=== PATIENT | female | born 1945 | race Caucasian/White ===

== ENCOUNTER → 2018-02-24 09:20 | Outpatient (CLI) | payer MEDICARE, SELFPAY | PROVIDERS: Family Provider Internal Medicine; PCP Internal Medicine; Visit Provider Internal Medicine | DX: R00.8 Other abnormalities of heart beat (principal); I49.3 Ventricular premature depolarization | CPT/HCPCS: 93225; 93226 ==

== ENCOUNTER 2019-04-03 15:30 | Outpatient (RCR) | payer MEDICARE, SELFPAY ==
--- NOTE | 2019-01-21 12:09 | HP.PTEVAL ---
Patient's Visit Information TOREY SUAREZ is a 73 year old F referred to Physical Therapy by Louie Stark DO with a diagnosis of INTERVERTEBRAL DISC DEGENERATION ,LUMBAR. Date of Evaluation: 01/21/19 Physical Therapist: Sylvester Beaulieu, PT, Cert MDT, OCS - Visit Plan Frequency: 2x /Week Duration: 4 Weeks Plan: PT INTERVENTIONS LUMBAR FLEXION,DLS ,POSTURAL EX'S ,FUNCTIONAL STRENGTHENING,MODALTIES PRN - Subjective Findings: This 73 y/o female presents to physical therapy with lumbar pain and radicular right leg. Patient has had lumbar pain and leg pain for several months . Symptoms progressively worse with gardening Patient located right L-S side of hip to anterior knee to foot. Symptoms wosre with walking ,standing,lfting,affects ADL'S/ Alleviating factors better with sitting,bending. Coughing/sneezing -. Bowel.bladder -. Denies parathesia/tingling. Patient seen chiropractor. Patient has been using fww due to ain. Patient pain affects QOL and function. Lumbar and leg pain impairs ADLS'a ,housework chores.Patient seen DR mccormick MRI recommended PT and gabepetin. SOCIAL: . VOCATION: retired - Pain Right Back Pain Intensity (Out of 10): 7 Pain Intensity Range: 10 Right Lower Extremity Pain Intensity (Out of 10): 7 Pain Intensity Range: 10 - Objective POSTURE:mild foward posture,mod kyphosis. GAIT: mild foward posture with fww reciprocal ,and can ambulate without fww. NEURO: c/o parathesia/tingling right leg leg,reflexes L3-4,L4-5,L5-S1 1/3. SYMMTRIES: align. LUMBAR ROM:flexion WFL,extension mod loss,side glides min glides. MMT: quads/hams 4/5,hip flexion 4-/5,ankle 4/5. PALAPTION: tender L-S - Special Tests L/S Slump test left side: Negative L/S Slump test right side: Negative L/S Left Straight Leg Raise: Negative L/S Right Straight Leg Raise: Negative Lumbar Standing: Flexion - Mechanical Response: No effect Lumbar Standing: Flexion - Symptoms During Testing: No effect Lumbar Standing: Flexion - Symptoms After Testing: No effect Lumbar Standing: Extension - Mechanical Response: No effect Lumbar Standing: Extension - Symptoms During Testing: Increases Lumbar Standing: Extension - Symptoms After Testing: No worse Lumbar Standing: Right Side Glides - Mechanical Response: No effect Lumbar Standing: Right Side [place] - Symptoms During Testing: No effect Lumbar Standing: Right Side [place] - Symptoms After Testing: No effect Lumbar Standing: Left Side [place] - Symptoms During Testing: Increases Lumbar Standing: Left Side [place] - Symptoms After Testing: No worse - Goals Goal 1:: Independant with HEP Goal Time Frame: 4-6 Weeks Goal 2:: Improve posture for ADL'S Goal Time Frame: 4-6 Weeks Goal 3:: Patient to decrease lumbar radiculopathy by 50% greater to imrove function and ADL'S Goal Time Frame: 4-6 Weeks Goal 4:: Patient to improve lumbar ROM for function of recovery. Goal Time Frame: 4-6 Weeks Goal 5:: Patient to improve back owestrey score by 5 points or > to improve QOL. Goal Time Frame: 4-6 Weeks - Rehabilitation Potential Physical Therapy Diagnosis: Patient has lumbar pain possible lateral stenosis with pain ,extension worse ,flexion better,impairs walking and standing impairs ADLS' Rehabilitation Potential: Good - Anticipated Interventions Patient/Client Instruction: Educate patient on: Plan of Care For the Purpose of:: To decrease pain, To increase ROM, To increase oxygenation perfusion, To improve ability to perform ADL's, To increase tolerance to activity/condition/position, To improve ability of physical actions for home/community/work/leisure, To improve health of tissue, To decrease soft tissue restriction, To increase flexibility/ROM, To improve ability to perform tasks related to life management Therapeutic Exercise to Include: Strength training, Body mechanics, Postural training, Flexibilty training, Active ROM, Dynamic Lumbar Stabilization For the Purpose of:: To decrease pain, To increase ROM, To improve muscle performance and motor function, To increase tolerance to activity/condition/position, To improve ability of physical actions for home/community/work/leisure, To improve health of tissue, To decrease soft tissue restriction, To increase flexibility/ROM, To improve ability to perform tasks related to life management TENS: Yes IF ES: Yes Cryotherapy (ice pack, ice massage): Yes Thermo therapy (hot pack): Yes Ultrasound (thermal/non thermal): Yes For the Purpose of:: To decrease pain, To increase ROM, To improve nutrient delivery to tissue, To increase oxygenation perfusion, To improve health of tissue, To decrease soft tissue restriction, To reduce risk of recurrence Thank you for the opportunity to evaluate your patient. For Medicare and Medicare HMO plans, please review the plan of care and approve it. It will need to be FAXED BACK to us at [phone] for Medicare purposes. For Medicare only, by signing this I certify the plan of care. Please let me know if there are questions or concerns regarding this plan of care. Physician Signature: Date:
--- NOTE | 2019-02-13 15:33 | HP.PTREVAL_ITS ---
Louie Stark, DO, It has been my pleasure to treat TOREY SUAREZ over the last 8 visits for INTERVERTEBRAL DISC DEGENERATION ,LUMBAR. Please see the progress note below for an update on the physical therapy plan of care! Subjective: Patient states Feeling good in morning but worse as day goes on.Patient states symptoms cont to be intermottant with parathesia/tingling in foot. Patient occassionally use fww. Objective/Function: POSTURE: mild foward posture. GAIT: ambulates with antalgic with with cane. LUMBAR ROM: flexion WFL ,extension mod loss pain ,side glides mod loss pain. MMT: quads/hams 4/5,ip flexion 4-/5 ,ankle 4/5 Plan Plan: CONT WITH POC 2X/WK FOR 2WKS PT INTERVENTIONS LUMBAR FLEXION,DLS ,POSTURAL EX'S ,FUNCTIONAL STRENGTHENING,MODALTIES PRN Goals Goal 1:: Independant with HEP Goal Time Frame: 4-6 Weeks Goal Progress: Progressing Goal 2:: Improve posture for ADL'S Goal Time Frame: 4-6 Weeks Goal Progress: Progressing Goal 3:: Patient to decrease lumbar radiculopathy by 50% greater to imrove function and ADL'S Goal Time Frame: 4-6 Weeks Goal Progress: Progressing Goal 4:: Patient to improve lumbar ROM for function of recovery. Goal Time Frame: 4-6 Weeks Goal Progress: Progressing Goal 5:: Patient to improve back owestrey score by 5 points or > to improve QOL. Goal Time Frame: 4-6 Weeks Goal Progress: Progressing Anticipated Interventions Patient/Client Instruction: Educate patient on: Plan of Care For the Purpose of:: To decrease pain, To increase ROM, To increase oxygenation perfusion, To improve ability to perform ADL's, To increase tolerance to activity/condition/position, To improve ability of physical actions for home/community/work/leisure, To improve health of tissue, To decrease soft tissue restriction, To increase flexibility/ROM, To improve ability to perform tasks related to life management Therapeutic Exercise to Include: Strength training, Body mechanics, Postural training, Flexibilty training, Active ROM, Dynamic Lumbar Stabilization For the Purpose of:: To decrease pain, To increase ROM, To improve muscle performance and motor function, To increase tolerance to activity/condition/position, To improve ability of physical actions for home/community/work/leisure, To improve health of tissue, To decrease soft tissue restriction, To increase flexibility/ROM, To improve ability to perform tasks related to life management TENS: Yes IF ES: Yes Cryotherapy (ice pack, ice massage): Yes Thermo therapy (hot pack): Yes Ultrasound (thermal/non thermal): Yes For the Purpose of:: To decrease pain, To increase ROM, To improve nutrient delivery to tissue, To increase oxygenation perfusion, To improve health of tissue, To decrease soft tissue restriction, To reduce risk of recurrence Please do not hesitate to contact me at [phone] by phone or Fax: if you have questions or concerns regarding this new plan of care! Sincerely, Sylvester Beauleiu, PT, Cert MDT, OCS
--- NOTE | 2019-02-25 09:26 | HP.PTREVAL_ITS ---
Louie Stark, DO, It has been my pleasure to treat TOREY SUAREZ over the last 12 visits for INTERVERTEBRAL DISC DEGENERATION ,LUMBAR. Please see the progress note below for an update on the physical therapy plan of care! Subjective: Seen DR wants to cont with PT and pain mangement. Pain is better .Pain is worse with walking and standind Objective/Function: POSTURE: mild foward posture. GAIT: amulates with cane with mild foward. NEURO: denies parathesia/tingling ,reflexes 2/3. MMT: quads/hams 4/5,hip flexion 4-/5 ankle 4/5. LUMBAR ROM: flexion mod loss,extension mod loss ,side glides min loss Plan Plan: CONT WITH POC 2X/WK FOR 4WKS PT INTERVENTIONS LUMBAR FLEXION,DLS ,POSTURAL EX'S ,FUNCTIONAL STRENGTHENING,MODALTIES PRN Goals Goal 1:: Independant with HEP Goal Time Frame: 4-6 Weeks Goal Progress: Progressing Goal 2:: Improve posture for ADL'S Goal Time Frame: 4-6 Weeks Goal Progress: Progressing Goal 3:: Patient to decrease lumbar radiculopathy by 50% greater to imrove function and ADL'S Goal Time Frame: 4-6 Weeks Goal Progress: Progressing Goal 4:: Patient to improve lumbar ROM for function of recovery. Goal Time Frame: 4-6 Weeks Goal Progress: Progressing Goal 5:: Patient to improve back owestrey score by 5 points or > to improve QOL. Goal Time Frame: 4-6 Weeks Goal Progress: Progressing Anticipated Interventions Patient/Client Instruction: Educate patient on: Plan of Care For the Purpose of:: To decrease pain, To increase ROM, To increase oxygenation perfusion, To improve ability to perform ADL's, To increase tolerance to activity/condition/position, To improve ability of physical actions for home/community/work/leisure, To improve health of tissue, To decrease soft tissue restriction, To increase flexibility/ROM, To improve ability to perform tasks related to life management Therapeutic Exercise to Include: Strength training, Body mechanics, Postural training, Flexibilty training, Active ROM, Dynamic Lumbar Stabilization For the Purpose of:: To decrease pain, To increase ROM, To improve muscle performance and motor function, To increase tolerance to activity/condition/position, To improve ability of physical actions for home/c ommunity/work/leisure, To improve health of tissue, To decrease soft tissue restriction, To increase flexibility/ROM, To improve ability to perform tasks related to life management TENS: Yes IF ES: Yes Cryotherapy (ice pack, ice massage): Yes Thermo therapy (hot pack): Yes Ultrasound (thermal/non thermal): Yes For the Purpose of:: To decrease pain, To increase ROM, To improve nutrient delivery to tissue, To increase oxygenation perfusion, To improve health of tissue, To decrease soft tissue restriction, To reduce risk of recurrence Please do not hesitate to contact me at [phone] by phone or if you have questions or concerns regarding this new plan of care! Sincerely, Sylvester Beaulieu, PT, Cert MDT, OCS
--- NOTE | 2019-04-21 13:47 | HP.PTDCSUM_ITS ---
HP - PT D/C Summary It has been my pleasure to treat TOREY SUAREZ under orders from Louie Stark DO, for the diagnosis of INTERVERTEBRAL DISC DEGENERATION ,LUMBAR for a total of 20 visit(s). Discharge Date: Please see the following information for a summary of their discharge status. - Subjective Subjective: Patient plans to have epidural injections by pain management. Pateint right L-S /hip radiates below knee. Symptoms cont to affect walking and standing. - Pain Right Back Pain Intensity (Out of 10): 6 Right Lower Extremity Pain Intensity (Out of 10): 7 - Overall Improvement % Improvement: 40 - Objective Objective/Function: POSTURE: MILD FOWRAD POSTURE. GAIT: QUAD CANE WITH ANTALGIC. NEURO: REFLEXES 1/3. MMT: RIGHT QUADS/HAMS 4-/5 ,HIP FLEXION 4- /5.LEFT 4-/5. LUMBAR ROM: FLEXION MOD LOSS,EXT SEVERE LOSS - Goals Goal 1:: Independant with HEP Goal Progress: Progressing Goal 2:: Improve posture for ADL'S Goal Progress: Progressing Goal 3:: Patient to decrease lumbar radiculopathy by 50% greater to imrove function and ADL'S Goal Progress: Progressing Goal 4:: Patient to improve lumbar ROM for function of recovery. Goal Progress: Progressing Goal 5:: Patient to improve back owestrey score by 5 points or > to improve QOL. Goal Progress: Progressing - Plan Plan: RTD - D/C Information If there are questions or concerns regarding this patient's physical therapy, please feel free to call me at [phone]. Thank you for the referral of this patient. Sincerely, Sylvester Beaulieu, PT, Cert MDT, OCS
== END 2019-04-03 19:00 | disposition home or self-care (01) ==
LOC: PT 15:30
PROVIDERS: Family Provider Internal Medicine; PCP Internal Medicine; Referring Provider Orthopaedic Surgery; Visit Provider Orthopaedic Surgery
DX: M51.36 Other intervertebral disc degeneration, lumbar region (principal)
CPT/HCPCS: 97110; 97161; 97530

== ENCOUNTER → 2019-07-29 09:23 | Outpatient (CLI) | payer MEDICARE, SELFPAY ==
--- NOTE | 2019-07-29 09:30 | BD_ITS ---
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 COMPARISON: None. FINDINGS: Lumbar Spine (L1-L4): g/cm2 (1.156) / T-score (-0.1) / Z-score (1.7) Findings are suggestive of normal bone density with a low fracture risk. Left Femur Total: g/cm2 (0.968) / T-score (-0.3) / Z-score (1.4) Left Femoral Neck: g/cm2 (0.916) / T-score (-0.9) / Z-score (1.0) Right Femur Total: g/cm2 (0.906) / T-score (-0.8) / Z-score (0.9) Right Femoral Neck: g/cm2 (0.827) / T-score (-1.5) / Z-score (0.4) BD/Dexa Bone Density Study IMPRESSION: The patient is considered osteopenic as outlined below according to World Corey Organization (WHO) criteria with a low fracture risk. Reference Information: The T-score is the number of standard deviations above or below the standard which is normal for young adults at their peak bone mineral density. The World Health Organization (WHO) interprets the T-scores as follows: Above -1 Normal bone density Between -1 and -2.5 Osteopenia Equal to / or below -2.5 Osteoporosis As a practical clinical guideline, osteopenia may be graded as follows: Mild -1 through -1.5 Moderate -1.6 through -2.0 Severe -2.1 through -2.4 The Z-score is the number of standard deviations above or below age-matched controls. A Z-score of less than -1.5 would be considered abnormal. References: 1. NIH Osteoporosis and Related Bone Diseases http://www.osteo.org 2. International Society for Clinical Densitometry http://www.iscd.org 3. National Osteoporosis Foundation http://www.nof.org Electronically Signed: Ck Gilliland, at 9:11 EST , Service support ,
== END ==
PROVIDERS: PCP Internal Medicine; Referring Provider Orthopaedic Surgery; Visit Provider Orthopaedic Surgery
DX: M85.80 Other specified disorders of bone density and structure, unspecified site (principal); Z78.0 Asymptomatic menopausal state
CPT/HCPCS: 77080

== ENCOUNTER 2019-08-04 19:58 | Inpatient (IN) | payer MEDICARE, SELFPAY ==
[2019-08-04 20:01] VITALS: BP 153/74; PULSE 78; PULSE 81; RESP 16; RESP 20; TEMP 37.2; O2SAT 91; O2SAT 93
[2019-08-04 21:02] VITALS: BMI 38.6
[2019-08-04 21:03] VITALS: BMI 38.6
--- NOTE | 2019-08-04 21:09 | HP.PCM_ITS ---
Problem List (1) Debility Status: Acute (2) Lumbar spinal stenosis Status: Chronic (3) Hypertension Status: Chronic (4) Muscle spasm Status: Acute (5) Vitamin B12 deficiency Status: Chronic (6) Lumbar radiculopathy Status: Chronic (7) Insomnia Status: Acute (8) Body mass index (bmi) 38.0-38.9, adult Status: Chronic (9) Gastroesophageal reflux disease Status: Chronic (10) Depression Status: Chronic History of Present Illness Date of Admission: 08/04/19 Chief Complaint: Here for rehabilitation, strengthening, prior to discharge home alone. The patient is a 74 year old Female with below past medical history underwent L5-S1 back surgery 07/31/[address] Anthony Boland. Postoperative course uncomplicated. Admit to TCU with debility, here for rehabilitation, strengthening, prior to discharge home alone. Past Medical History Past Medical History (Chronic Problems): Chronic Problems Lumbar spinal stenosis (Chronic) Hypertension (Chronic) Vitamin B12 deficiency (Chronic) Lumbar radiculopathy (Chronic) Body mass index (bmi) 38.0-38.9, adult (Chronic) Gastroesophageal reflux disease (Chronic) Depression (Chronic) Benign essential HTN (Chronic) Allergies No Known Allergies Allergy (Verified 08/04/19 20:37) Home Medications: Ambulatory Orders Medication Instructions Recorded Amlodipine [Norvasc] 2.5 mg PO DAILY 08/04/19 Baclofen 10 mg PO Q8H PRN PRN 08/04/19 Calcium Carbonate/Vitamin D3 1 tab PO DAILY 08/04/19 [Calcium 600 + Vit D Tablet] Cyanocobalamin [Vitamin B12] 1,000 mcg PO DAILY@0800 08/04/19 Folic Acid/Vit B Complex and C 2 mg PO DAILY 08/04/19 [Activite Tablet] Gabapentin [Neurontin] 100 mg PO TIDCM 08/04/19 Hydrochlorothiazide [Hctz] 25 mg PO DAILY 08/04/19 Melatonin 5 mg PO QHS 08/04/19 Metoprolol Succinate [Toprol Xl] 100 mg PO DAILY 08/04/19 Multivitamin with Minerals 1 tab PO DAILY 08/04/19 [Multiple Vitamin] Omeprazole 40 mg PO DAILY 08/04/19 Oxycodone [Oxyir] 5 mg PO Q4H PRN 08/04/19 Sertraline HCl 100 mg PO DAILY 08/04/19 Surgical History: cholecystectomy, - - Bladder suspension surgery. 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 Denies: Joint Pain, Joint Tenderness Skin: Denies: Rash, Wounds Neurological: Denies: Numbness, Tingling, Focal weakness Psychiatric: Denies: Anxiety, Depression, Homicidal Ideations, Suicidal Ideations Hematologic/ Lymphatic: Denies: Easy Bruising, Easy Bleeding VTE Information - Inpt Only VTE Present on Admission: No VTE Mechan Device Prophylaxis: Knee High RAISSA Hose VTE Pharm Prophylaxis ordered?: Yes Patient Problems: Active and Suspected Problems Debility (Acute) Muscle spasm (Acute) Insomnia (Acute) - Physical Exam Vitals/I&O's: Weight: 98.883 kg Body Mass Index (BMI) 38.6 General: Alert, Oriented x3, Cooperative HEENT: Atraumatic, PERRLA, EOMI, Normocephalic Neck: Supple, No JVD, Negative Carotid Bruits Lungs: Clear to auscultation, Normal air movement Cardiovascular: Regular rate, No murmurs Abdomen: Bowel Sounds Present, Soft, Non Tender, - - FOS. Extremities: No edema, Capillary Refill Less than 3 Seconds Skin: No rashes, No breakdown Musculoskeletal: No Tenderness to Palpation of Joints or Extremities Neurological: Cranial nerves II-XII grossly intact Psych/Mental Status: Normal Affect, Appropriate Current Medications Amlodipine Besylate (Norvasc) 2.5 mg PO DAILY JOSE Baclofen (Lioresal) 10 mg PO Q8H PRN PRN PRN Reason: MUSCLE SPASM Calcium/Vitamin D (Os-Ruben 500mg + D) 1 tablet PO DAILY@0800 [facility] Cyanocobalamin (Vitamin B12) 1,000 mcg PO DAILY@0800 [facility] Gabapentin (Neurontin) 100 mg PO TIDCM [facility] Hydrochlorothiazide (Hctz) 25 mg PO DAILY [facility] Melatonin (Melatonin) 5 mg PO QHS [facility] Metoprolol Succinate (Toprol Xl (Beta Leeanne)) 100 mg PO DAILY [facility] Multivitamins/Minerals (Multivitamin With Minerals (Bkc)) 1 tablet PO DAILY@0800 [facility] Oxycodone HCl (Oxyir) 5 mg PO Q4H PRN PRN Reason: Pain Score 1-10/10 Pantoprazole Sodium (Protonix) 40 mg PO DAILY [facility] Sertraline HCl (Zoloft) 100 mg PO DAILY [facility] Tuberculin PPD (Tubersol, Aplisol, Ppd) 5 tu ID [id number] ONE Stop: 08/05/19 10:01 Tuberculin PPD (Tubersol, Aplisol, Ppd) 5 tu ID [id number] ONE Stop: 08/12/19 10:01 Assessment/Plan All Active Problems Debility (Acute) Muscle spasm (Acute) Insomnia (Acute) 74 year old female with below past medical history underwent L5-S1 back surgery 07/31/[address] Anthony Boland, admitted to TCU with debility, here for rehabilitation, strengthening, prior to discharge home alone. * Debility - PT/OT. * Pain - Tylenol 1000MG Q6H PRN pain (1-3), Oxycodone 5MG Q4H PRN pain (4-10). * Bowel - Miralax 17GM daily, Senna/colace 2 tablets twice daily, Dulcolax 10MG daily PRN, Magnesium Citrate 300ML PO x 1. * Adult immunization - Administer Prevnar 13, Pneumovax 23, Fluzone as appropriate. * DVT prophylaxis - Lovenox 40MG SC daily. * Hypertension - Metoprolol succinate 100MG daily, HCTZ 25MG daily, Amlodipine 2.5MG daily. * Muscle spasm - Baclofen 10MG Q8H PRN. * Calcium deficiency - Calcium with D 1 tablet daily. * Vitamin B12 deficiency - B12 1000MCG daily. * Lumbar radiculopathy - Gabapentin 100MG TIDCM. * Insomnia - Melatonin 5MG QHS. * Nutrition - MVI daily. * GERD - Pantoprazole 40MG daily. * Depression - Sertraline 100MG daily, stable chronic machine long goods helper use, GDR not indicated. * Hypokalemia - K 3.2, KCL 40MEQ PO x 1 dose, then 20MEQ daily, BMP in 2 days.
[2019-08-04] MEDS: MELATONIN 10 MG TABLET 5 MG PO (22:09)
[2019-08-04] MEDS: Baclofen 10 MG Tablet PO (22:09)
[2019-08-05] MEDS: oxyCODONE 5 MG Tablet PO ×3 (03:39→19:01)
[2019-08-05] MEDS: Pantoprazole Sodium 40 MG Tablet PO (05:37)
[2019-08-05 05:38] VITALS: BP 154/83; PULSE 60
[2019-08-05] MEDS: amLODIPine 2.5 MG Tablet PO (05:38)
[2019-08-05] MEDS: Sertraline 100 MG Tablet PO (05:38)
[2019-08-05] MEDS: Metoprolol(XL)Succ 100 MG Tablet PO (05:38)
[2019-08-05] MEDS: hydroCHLOROthiazide 25 MG Tablet PO (05:38)
[2019-08-05] MEDS: Senna/Docusate Sodium 1 Tablet 2 TABLET PO (05:38)
[2019-08-05 05:56] LABS: Absolute Lymphocyte Count 1.36 X10^3/uL (0.83-4.51); Absolute Neutrophil Count 3.5 X10^3/uL (2.0-7.7); Basophil# 0.05 X10^3/uL; Basophil% 0.9 % (0-1); Eosinophil# 0.15 X10^3/uL; Eosinophils% 2.7 % (0-5); Hematocrit 31.5 % (37-47); Hemoglobin 10.3 g/dL (12.0-15.0); Lymphocyte # 1.36 X10^3/ul (4.0); Lymphocyte % 24.2 % (19-41); Mean Corp Hgb Conc 32.7 g/dL (32-36); Mean Corpuscular Hgb 29.2 pg (27.0-32.0); Mean Corpuscular Volume 89.2 fL (81-99); Mean Platelet Vol. 9.4 fl (6.2-12.0); Monocyte# 0.58 X10^3/uL; Monocyte% 10.3 % (0-10); NRBC Flagged by Analyzer 0 % (0-5); Neutrophil # 3.45 X10^3/uL (2.7-7.7); Neutrophil % 61.2 % (47-70); Platelet Count 162 K/mm3 (150-450); RBC Distribution Width CV 13.2 % (11.6-14.6); RBC Distribution Width SD 42.6 fl (35.1-43.9); Red Blood Count 3.53 M/mm3 (4.2-5.4); White Blood Count 5.6 K/mm3 (4.4-11.0)
[2019-08-05 06:18] LABS: Anion Gap 5 (5-15); BUN 11 mg/dL (7-18); BUN/Creat Ratio 21.8 RATIO (10-20); Calcium,Total 9.2 mg/dL (8.5-10.1); Chloride 100 mmol/L (98-107); EST Glomerular Filtration Rate 127 mL/min (>60); Est Glom Filt Rate - Afr Amer 154 mL/min (>60); Estimated Creatinine Clearance 40.83 ml/min; Glucose 91 mg/dL (74-106); Potassium 3.2 mmol/L (3.5-5.1); Sodium Level 138 mmol/L (136-145)
[2019-08-05] MEDS: Gabapentin 100 MG Capsule PO ×3 (08:02→17:22)
[2019-08-05] MEDS: Cyanocobalamin 500 MCG Tablet 1000 MCG PO (08:02)
[2019-08-05] MEDS: Calcium Carb/Vitamin D 1 TABLET Tablet PO (08:02)
[2019-08-05] MEDS: Multivitamins,Ther W-Minerals Tablet 1 TABLET PO (08:02)
[2019-08-05] MEDS: Enoxaparin 40 MG/0.4 ML Syringe SC (08:04)
[2019-08-05] MEDS: Acetaminophen 500 MG Tablet 1000 MG PO (09:54)
[2019-08-05] MEDS: Tuberculin,Purif.prot.deriv. 50 TU/ML Vial 5 ML ID (09:58)
[2019-08-05] MEDS: Magnesium Citrate 300 ML PO (10:53)
[2019-08-05 13:44] VITALS: BP 125/65; PULSE 60; RESP 17; TEMP 37.1; O2SAT 91
--- NOTE | 2019-08-05 15:10 | NURSING ---
mag citrate given per order, outcome was effective
--- NOTE | 2019-08-05 15:13 | PHA.CONS_ITS ---
<Abigail Bowles - Last Filed: 08/05/19 15:13> Progress Note - Pharmacy Subjective: TCU Admission Objective: Allergies No Known Allergies Allergy (Verified 08/04/19 20:37) Current Medications Generic Name Dose Route Start Last Admin Trade Name Freq PRN Reason Stop Dose Admin Acetaminophen 1,000 mg 08/04/19 21:16 08/05/19 09:54 Tylenol PO 1,000 mg Q6H PRN PRN Administration Pain Score 1-3/10 Amlodipine Besylate 2.5 mg 08/05/19 06:00 08/05/19 05:38 Norvasc PO 2.5 mg DAILY JOSE Administration Baclofen 10 mg 08/04/19 20:23 08/04/19 22:09 Lioresal PO 10 mg Q8H PRN PRN Administration MUSCLE SPASM Bisacodyl 10 mg 08/04/19 21:17 Dulcolax PO DAILY PRN Constipation Calamine/Phenol 1 applic 08/05/19 06:00 08/05/19 05:40 Calmoseptine Ointment TOPICAL Not Given 0600,2199 [facility] Protocol Calcium/Vitamin D 1 tablet 08/05/19 08:00 08/05/19 08:02 Os-Ruben 500mg + D PO 1 tablet DAILY@0800 [facility] Administration Cyanocobalamin 1,000 mcg 08/05/19 08:00 08/05/19 08:02 Vitamin B12 PO 1,000 mcg DAILY@0800 [facility] Administration Enoxaparin Sodium 40 mg 08/05/19 07:00 08/05/19 08:04 Lovenox SC 40 mg DAILY@0600 [facility] Administration Gabapentin 100 mg 08/05/19 07:45 08/05/19 12:51 Neurontin PO 100 mg TIDCM JOSE Administration Hydrochlorothiazide 25 mg 08/05/19 06:00 08/05/19 05:38 Hctz PO 25 mg DAILY JOSE Administration Melatonin 5 mg 08/04/19 22:00 08/04/19 22:09 Melatonin PO 5 mg QHS [facility] Administration Metoprolol Succinate 100 mg 08/05/19 06:00 08/05/19 05:38 Toprol Xl (Beta Leeanne) PO 100 mg DAILY JOSE Administration Multivitamins/Minerals 1 tablet 08/05/19 08:00 08/05/19 08:02 Multivitamin With Minerals (Bkc) PO 1 tablet DAILY@0800 [facility] Administration Nystatin 1 applic 08/05/19 06:00 08/05/19 05:40 Mycostatin Powder TOPICAL Not Given 0600,2200 [facility] Protocol Oxycodone HCl 5 mg 08/04/19 21:17 08/05/19 08:10 Oxyir PO 5 mg Q4H PRN PRN Administration Pain Score 4-10/10 Pantoprazole Sodium 40 mg 08/05/19 06:00 08/05/19 05:37 Protonix PO 40 mg DAILY JOSE Administration Polyethylene Glycol 17 gm 08/05/19 06:00 08/05/19 05:38 Miralax PO Not Given DAILY [facility] Potassium Chloride 20 meq 08/06/19 08:00 [facility] Senna/Docusate Sodium 2 tablet 08/05/19 06:00 08/05/19 05:38 Senokot-S, Maggie-Colace PO 2 tablet BID JOSE Administration Sertraline HCl 100 mg 08/05/19 06:00 08/05/19 05:38 Zoloft PO 100 mg DAILY JOSE Administration Tuberculin PPD 5 tu 08/12/19 10:00 Tubersol, Aplisol, Ppd ID 08/12/19 10:01 X1 ONE Problem List Debility (Acute) Lumbar spinal stenosis (Chronic) Hypertension (Chronic) Muscle spasm (Acute) Vitamin B12 deficiency (Chronic) Lumbar radiculopathy (Chronic) Insomnia (Acute) Body mass index (bmi) 38.0-38.9, adult (Chronic) Vital Signs Temp Pulse Resp BP Pulse Ox 98.7 F 60 17 125/65 H 91 08/05/19 13:44 08/05/19 13:44 08/05/19 13:44 08/05/19 13:44 08/05/19 13:44 Oxygen Delivery Method Room Air Weight: 98.883 kg Body Mass Index (BMI) 38.6 Sodium 138 mmol/L (136-145) 08/05/19 05:10 Potassium 3.2 mmol/L (3.5-5.1) L 08/05/19 05:10 Chloride 100 mmol/L (98-107) 08/05/19 05:10 Carbon Dioxide 33.0 mmol/L (21.0-32.0) H 08/05/19 05:10 Anion Gap 5 (5-15) 08/05/19 05:10 BUN 11 mg/dL (7-18) 08/05/19 05:10 Creatinine 0.50 mg/dL (0.55-1.02) L 08/05/19 05:10 Est GFR (MDRD) Af Amer 154 mL/min (>60) 08/05/19 05:10 Est GFR (MDRD) Non-Af 127 mL/min (>60) 08/05/19 05:10 BUN/Creatinine Ratio 21.8 RATIO (10-20) H 08/05/19 05:10 Glucose 91 mg/dL (74-106) 08/05/19 05:10 Assessment/Plan: 1. Pain: acetaminophen 1000mg PO Q6H PRN pain 1-3 and oxycodone 5mg PO Q4H PRN pain 4-03/19. Please continue to monitor for increased pain, PRN usage and constipation. 2. DVT prophylaxis: enoxaparin 40mg SC daily. Please continue to monitor for S/S of bleeding/DVT, renal function and platelets. 3. Hypertension: metoprolol succinate 100mg PO daily, hydrochlorothiazide 25mg PO daily, amlodipine 2.5mg PO daily. Please continue to monitor BP, HR, electrolytes, and edema. 4. Hypokalemia: potassium chloride 20mEq PO daily starting 08/06. Also received potassium 40mEq PO X1 today. Please continue to monitor potassium levels. 5. Muscle spasm: baclofen 10mg PO Q8H PRN muscle spasms. Please continue to monitor for muscle spasms and PRN usage. 6. Lumbar radiculopathy: gabapentin 100mg PO TIDCM. Please continue to monitor for confusion, increased pain and renal function. 7. GERD: pantoprazole 40mg PO daily. Please continue to monitor for S/S of GERD. *8. Overall nutrition/vitamin deficiencies: multivitamin 1T PO DAILYCM, Os-Ruben 1T PO DAILYCM, cyanocobalamin 1000mcg PO DAILYCM. Please consider ordering vitamin B12 and vitamin D levels if clinically appropriate. Thanks. Please continue to monitor. Psychotropic Medications: 1. Depression: sertraline 100mg PO daily. Please see physician note regarding GDR. Unnecessary Medications: None Bowel Regimen: Miralax 17gm PO daily, senna/docusate 2T PO BID, and bisacodyl 10mg PO daily PRN constipation. Please continue to monitor for constipation and PRN usage. Date of Note:: 08/05/19 - Provider Comments Provider responsibility: Provider responsible to enter orders to implement recommendations <Rasta Rankin Chi - Last Filed: 08/05/19 16:30> Progress Note - Pharmacy Subjective: [] Objective: Allergies No Known Allergies Allergy (Verified 08/04/19 20:37) Current Medications Generic Name Dose Route Start Last Admin Trade Name Freq PRN Reason Stop Dose Admin Acetaminophen 1,000 mg 08/04/19 21:16 08/05/19 09:54 Tylenol PO 1,000 mg Q6H PRN PRN Administration Pain Score 1-3/10 Amlodipine Besylate 2.5 mg 08/05/19 06:00 08/05/19 05:38 Norvasc PO 2.5 mg DAILY JOSE Administration Baclofen 10 mg 08/04/19 20:23 08/04/19 22:09 Lioresal PO 10 mg Q8H PRN PRN Administration MUSCLE SPASM Bisacodyl 10 mg 08/04/19 21:17 Dulcolax PO DAILY PRN Constipation Calamine/Phenol 1 applic 08/05/19 06:00 08/05/19 05:40 Calmoseptine Ointment TOPICAL Not Given 0600,2200 [facility] Protocol Calcium/Vitamin D 1 tablet 08/05/19 08:00 08/05/19 08:02 Os-Ruben 500mg + D PO 1 tablet DAILY@0800 [facility] Administration Cyanocobalamin 1,000 mcg 08/05/19 08:00 08/05/19 08:02 Vitamin B12 PO 1,000 mcg DAILY@0800 [facility] Administration Enoxaparin Sodium 40 mg 08/05/19 07:00 08/05/19 08:04 Lovenox SC 40 mg DAILY@0600 [facility] Administration Gabapentin 100 mg 08/05/19 07:45 08/05/19 12:51 Neurontin PO 100 mg TIDCM JOSE Administration Hydrochlorothiazide 25 mg 08/05/19 06:00 08/05/19 05:38 Hctz PO 25 mg DAILY JOSE Administration Melatonin 5 mg 08/04/19 22:00 08/04/19 22:09 Melatonin PO 5 mg QHS JOSE Administration Metoprolol Succinate 100 mg 08/05/19 06:00 08/05/19 05:38 Toprol Xl (Beta Leeanne) PO 100 mg DAILY JOSE Administration Multivitamins/Minerals 1 tablet 08/05/19 08:00 08/05/19 08:02 Multivitamin With Minerals (Bkc) PO 1 tablet DAILY@0800 [facility] Administration Nystatin 1 applic 08/05/19 06:00 08/05/19 05:40 Mycostatin Powder TOPICAL Not Given 0600,2200 [facility] Protocol Oxycodone HCl 5 mg 08/04/19 21:17 08/05/19 08:10 Oxyir PO 5 mg Q4H PRN PRN Administration Pain Score 4-10/10 Pantoprazole Sodium 40 mg 08/05/19 06:00 08/05/19 05:37 Protonix PO 40 mg DAILY JOSE Administration Polyethylene Glycol 17 gm 08/05/19 06:00 08/05/19 05:38 Miralax PO Not Given DAILY [facility] Potassium Chloride 20 meq 08/06/19 08:00 [facility] Senna/Docusate Sodium 2 tablet 08/05/19 06:00 08/05/19 05:38 Senokot-S, Maggie-Colace PO 2 tablet BID JOSE Administration Sertraline HCl 100 mg 08/05/19 06:00 08/05/19 05:38 Zoloft PO 100 mg DAILY JOSE Administration Tuberculin PPD 5 tu 08/12/19 10:00 Tubersol, Aplisol, Ppd ID 08/12/19 10:01 X1 ONE Problem List Debility (Acute) Lumbar spinal stenosis (Chronic) Hypertension (Chronic) Muscle spasm (Acute) Vitamin B12 deficiency (Chronic) Lumbar radiculopathy (Chronic) Insomnia (Acute) Body mass index (bmi) 38.0-38.9, adult (Chronic) Vital Signs Temp Pulse Resp BP Pulse Ox 98.7 F 60 17 125/65 H 91 08/05/19 13:44 08/05/19 13:44 08/05/19 13:44 08/05/19 13:44 08/05/19 13:44 Oxygen Delivery Method Room Air Weight: 98.883 kg Body Mass Index (BMI) 38.6 Sodium 138 mmol/L (136-145) 08/05/19 05:10 Potassium 3.2 mmol/L (3.5-5.1) L 08/05/19 05:10 Chloride 100 mmol/L (98-107) 08/05/19 05:10 Carbon Dioxide 33.0 mmol/L (21.0-32.0) H 08/05/19 05:10 Anion Gap 5 (5-15) 08/05/19 05:10 BUN 11 mg/dL (7-18) 08/05/19 05:10 Creatinine 0.50 mg/dL (0.55-1.02) L 08/05/19 05:10 Est GFR (MDRD) Af Amer 154 mL/min (>60) 08/05/19 05:10 Est GFR (MDRD) Non-Af 127 mL/min (>60) 08/05/19 05:10 BUN/Creatinine Ratio 21.8 RATIO (10-20) H 08/05/19 05:10 Glucose 91 mg/dL (74-106) 08/05/19 05:10 Assessment/Plan: Psychotropic Medications: Unnecessary Medications: Bowel Regimen: - Provider Comments Provider responsibility: Provider responsible to enter orders to implement recommendations Provider Comments to Recommendations by Pharmacy: Agree
--- NOTE | 2019-08-05 17:03 | CASEMGMT ---
Social Work Reviewed and agreed with social work internal wholesaler documentation on this date. Sophia Whittington, TIP LENGTH CHECKER EMERGENCY DEPT TECH
[2019-08-05] MEDS: MELATONIN 10 MG TABLET 5 MG PO (20:36)
[2019-08-05] MEDS: Menthol/Lanolin/Calamine/Znox 113 GM Tube 1 APPLIC TOPICAL (20:37)
[2019-08-05] MEDS: Baclofen 10 MG Tablet PO (20:45)
[2019-08-05] MEDS: Nystatin Powder 15gm Bottle 1 APPLIC TOPICAL (20:47)
[2019-08-05 20:48] VITALS: PULSE 76; RESP 16; O2SAT 93
[2019-08-06] MEDS: oxyCODONE 5 MG Tablet PO ×3 (04:53→19:34)
[2019-08-06] MEDS: Enoxaparin 40 MG/0.4 ML Syringe SC (04:54)
[2019-08-06] MEDS: amLODIPine 2.5 MG Tablet PO (04:54)
[2019-08-06] MEDS: Senna/Docusate Sodium 1 Tablet 2 TABLET PO (04:54)
[2019-08-06] MEDS: hydroCHLOROthiazide 25 MG Tablet PO (04:55)
[2019-08-06] MEDS: Pantoprazole Sodium 40 MG Tablet PO (04:55)
[2019-08-06] MEDS: Nystatin Powder 15gm Bottle 1 APPLIC TOPICAL ×2 (04:56→19:36)
[2019-08-06] MEDS: Menthol/Lanolin/Calamine/Znox 113 GM Tube 1 APPLIC TOPICAL ×2 (04:56→19:36)
[2019-08-06 04:59] VITALS: BP 146/74; PULSE 70
[2019-08-06] MEDS: Sertraline 100 MG Tablet PO (04:59)
[2019-08-06] MEDS: Metoprolol(XL)Succ 100 MG Tablet PO (04:59)
[2019-08-06] MEDS: Acetaminophen 500 MG Tablet 1000 MG PO (08:17)
[2019-08-06] MEDS: Gabapentin 100 MG Capsule PO ×3 (08:18→17:05)
[2019-08-06] MEDS: Cyanocobalamin 500 MCG Tablet 1000 MCG PO (08:18)
[2019-08-06] MEDS: Calcium Carb/Vitamin D 1 TABLET Tablet PO (08:18)
[2019-08-06] MEDS: Multivitamins,Ther W-Minerals Tablet 1 TABLET PO (08:18)
[2019-08-06 10:50] VITALS: PULSE 61; RESP 18; O2SAT 92
[2019-08-06 15:20] VITALS: BP 117/71; PULSE 84; RESP 16; TEMP 36.4; O2SAT 97
[2019-08-06] MEDS: MELATONIN 10 MG TABLET 5 MG PO (19:35)
[2019-08-07] MEDS: amLODIPine 2.5 MG Tablet PO (05:01)
[2019-08-07] MEDS: Sertraline 100 MG Tablet PO (05:01)
[2019-08-07] MEDS: hydroCHLOROthiazide 25 MG Tablet PO (05:01)
[2019-08-07] MEDS: Baclofen 10 MG Tablet PO ×2 (05:01→16:55)
[2019-08-07] MEDS: Senna/Docusate Sodium 1 Tablet 2 TABLET PO (05:01)
[2019-08-07] MEDS: Pantoprazole Sodium 40 MG Tablet PO (05:01)
[2019-08-07] MEDS: Enoxaparin 40 MG/0.4 ML Syringe SC (05:02)
[2019-08-07 05:07] VITALS: BP 127/74; PULSE 70
[2019-08-07] MEDS: Metoprolol(XL)Succ 100 MG Tablet PO (05:07)
[2019-08-07] MEDS: Menthol/Lanolin/Calamine/Znox 113 GM Tube 1 APPLIC TOPICAL ×2 (05:09→21:01)
[2019-08-07] MEDS: Nystatin Powder 15gm Bottle 1 APPLIC TOPICAL ×2 (05:09→21:01)
[2019-08-07 06:38] LABS: Anion Gap 5 (5-15); BUN 15 mg/dL (7-18); BUN/Creat Ratio 22.2 RATIO (10-20); Chloride 100 mmol/L (98-107); Creatinine, Serum 0.68 mg/dL (0.55-1.02); EST Glomerular Filtration Rate 90 mL/min (>60); Est Glom Filt Rate - Afr Amer 109 mL/min (>60); Estimated Creatinine Clearance 40.83 ml/min; Glucose 104 mg/dL (74-106); Potassium 3.6 mmol/L (3.5-5.1); Sodium Level 136 mmol/L (136-145)
[2019-08-07] MEDS: Multivitamins,Ther W-Minerals Tablet 1 TABLET PO (08:49)
[2019-08-07] MEDS: Cyanocobalamin 500 MCG Tablet 1000 MCG PO (08:49)
[2019-08-07] MEDS: Gabapentin 100 MG Capsule PO ×3 (08:50→16:56)
[2019-08-07] MEDS: Calcium Carb/Vitamin D 1 TABLET Tablet PO (08:51)
[2019-08-07] MEDS: Acetaminophen 500 MG Tablet 1000 MG PO (09:09)
[2019-08-07] MEDS: oxyCODONE 5 MG Tablet PO ×2 (09:10→16:55)
--- NOTE | 2019-08-07 10:39 | CASEMGMT ---
Social Work Completed advanced directives. Pt named daughter Anais Churchill as POA. Copies placed in chart. Sophia Whittington, APPLIED TECHNOLOGIST HORTICULTURALIST
[2019-08-07 15:47] VITALS: BP 111/79; PULSE 66; RESP 16; TEMP 36.2; O2SAT 92
[2019-08-07] MEDS: MELATONIN 10 MG TABLET 5 MG PO (20:59)
[2019-08-07 21:10] VITALS: PULSE 72; RESP 16; O2SAT 95
[2019-08-08] MEDS: Baclofen 10 MG Tablet PO ×3 (00:25→19:26)
[2019-08-08] MEDS: oxyCODONE 5 MG Tablet PO ×2 (05:16→21:48)
[2019-08-08] MEDS: Menthol/Lanolin/Calamine/Znox 113 GM Tube 1 APPLIC TOPICAL ×2 (05:17→21:49)
[2019-08-08] MEDS: hydroCHLOROthiazide 25 MG Tablet PO (05:17)
[2019-08-08] MEDS: Senna/Docusate Sodium 1 Tablet 2 TABLET PO (05:17)
[2019-08-08] MEDS: Sertraline 100 MG Tablet PO (05:17)
[2019-08-08] MEDS: Pantoprazole Sodium 40 MG Tablet PO (05:17)
[2019-08-08] MEDS: amLODIPine 2.5 MG Tablet PO (05:17)
[2019-08-08] MEDS: Nystatin Powder 15gm Bottle 1 APPLIC TOPICAL ×2 (05:18→21:49)
[2019-08-08 05:22] VITALS: BP 149/82; PULSE 64
[2019-08-08] MEDS: Metoprolol(XL)Succ 100 MG Tablet PO (05:22)
[2019-08-08] MEDS: Enoxaparin 40 MG/0.4 ML Syringe SC (05:29)
[2019-08-08] MEDS: Gabapentin 100 MG Capsule PO ×3 (07:31→17:34)
[2019-08-08] MEDS: Cyanocobalamin 500 MCG Tablet 1000 MCG PO (07:32)
[2019-08-08] MEDS: Calcium Carb/Vitamin D 1 TABLET Tablet PO (07:32)
[2019-08-08] MEDS: Multivitamins,Ther W-Minerals Tablet 1 TABLET PO (07:32)
[2019-08-08 10:00] VITALS: PULSE 78; RESP 18; O2SAT 96
[2019-08-08] MEDS: Acetaminophen 500 MG Tablet 1000 MG PO ×2 (11:56→19:26)
[2019-08-08 14:35] VITALS: BP 119/62; PULSE 67; RESP 18; TEMP 36.4; O2SAT 97
[2019-08-08] MEDS: MELATONIN 10 MG TABLET 5 MG PO (21:48)
[2019-08-09 05:16] VITALS: BP 138/69; PULSE 61
[2019-08-09] MEDS: Metoprolol(XL)Succ 100 MG Tablet PO (05:16)
[2019-08-09] MEDS: Sertraline 100 MG Tablet PO (05:16)
[2019-08-09] MEDS: amLODIPine 2.5 MG Tablet PO (05:16)
[2019-08-09] MEDS: hydroCHLOROthiazide 25 MG Tablet PO (05:16)
[2019-08-09] MEDS: oxyCODONE 5 MG Tablet PO ×2 (05:19→19:30)
[2019-08-09] MEDS: Enoxaparin 40 MG/0.4 ML Syringe SC (05:19)
[2019-08-09] MEDS: Pantoprazole Sodium 40 MG Tablet PO (05:19)
[2019-08-09] MEDS: Nystatin Powder 15gm Bottle 1 APPLIC TOPICAL ×2 (05:23→20:39)
[2019-08-09] MEDS: Menthol/Lanolin/Calamine/Znox 113 GM Tube 1 APPLIC TOPICAL ×2 (05:23→20:39)
[2019-08-09] MEDS: Cyanocobalamin 500 MCG Tablet 1000 MCG PO (07:57)
[2019-08-09] MEDS: Multivitamins,Ther W-Minerals Tablet 1 TABLET PO (07:57)
[2019-08-09] MEDS: Calcium Carb/Vitamin D 1 TABLET Tablet PO (07:57)
[2019-08-09] MEDS: Gabapentin 100 MG Capsule PO ×3 (07:58→17:46)
[2019-08-09 14:19] VITALS: BP 121/78; PULSE 87; RESP 16; TEMP 36.8; O2SAT 98
[2019-08-09] MEDS: Senna/Docusate Sodium 1 Tablet 2 TABLET PO (17:46)
[2019-08-09 20:12] VITALS: PULSE 71; O2SAT 98
[2019-08-09] MEDS: Acetaminophen 500 MG Tablet 1000 MG PO (20:37)
[2019-08-09] MEDS: MELATONIN 10 MG TABLET 5 MG PO (20:38)
[2019-08-09] MEDS: Baclofen 10 MG Tablet PO (23:09)
[2019-08-10] MEDS: Enoxaparin 40 MG/0.4 ML Syringe SC (06:13)
[2019-08-10 06:14] VITALS: BP 107/71; PULSE 61
[2019-08-10] MEDS: Acetaminophen 500 MG Tablet 1000 MG PO ×2 (06:14→17:12)
[2019-08-10] MEDS: amLODIPine 2.5 MG Tablet PO (06:14)
[2019-08-10] MEDS: hydroCHLOROthiazide 25 MG Tablet PO (06:14)
[2019-08-10] MEDS: Pantoprazole Sodium 40 MG Tablet PO (06:14)
[2019-08-10] MEDS: Sertraline 100 MG Tablet PO (06:14)
[2019-08-10] MEDS: Metoprolol(XL)Succ 100 MG Tablet PO (06:14)
[2019-08-10] MEDS: Senna/Docusate Sodium 1 Tablet 2 TABLET PO (06:15)
[2019-08-10] MEDS: Nystatin Powder 15gm Bottle 1 APPLIC TOPICAL ×2 (06:18→21:55)
[2019-08-10] MEDS: Menthol/Lanolin/Calamine/Znox 113 GM Tube 1 APPLIC TOPICAL ×2 (06:19→21:54)
[2019-08-10] MEDS: Gabapentin 100 MG Capsule PO ×3 (06:19→17:10)
[2019-08-10] MEDS: Multivitamins,Ther W-Minerals Tablet 1 TABLET PO (08:01)
[2019-08-10] MEDS: Calcium Carb/Vitamin D 1 TABLET Tablet PO (08:01)
[2019-08-10] MEDS: Cyanocobalamin 500 MCG Tablet 1000 MCG PO (08:01)
[2019-08-10] MEDS: oxyCODONE 5 MG Tablet PO ×2 (12:44→17:43)
[2019-08-10 14:22] VITALS: BP 124/90; PULSE 73; RESP 18; TEMP 36.9; O2SAT 96
[2019-08-10] MEDS: MELATONIN 10 MG TABLET 5 MG PO (21:50)
[2019-08-10] MEDS: Baclofen 10 MG Tablet PO (21:53)
[2019-08-10 23:37] VITALS: PULSE 71; O2SAT 96
[2019-08-11] MEDS: oxyCODONE 5 MG Tablet PO ×2 (04:07→21:04)
[2019-08-11 06:13] VITALS: BP 112/74; PULSE 116
[2019-08-11] MEDS: Metoprolol(XL)Succ 100 MG Tablet PO (06:13)
[2019-08-11] MEDS: Senna/Docusate Sodium 1 Tablet 2 TABLET PO ×2 (06:13→17:20)
[2019-08-11] MEDS: Enoxaparin 40 MG/0.4 ML Syringe SC (06:14)
[2019-08-11] MEDS: Acetaminophen 500 MG Tablet 1000 MG PO (06:14)
[2019-08-11] MEDS: Pantoprazole Sodium 40 MG Tablet PO (06:14)
[2019-08-11] MEDS: amLODIPine 2.5 MG Tablet PO (06:14)
[2019-08-11] MEDS: Gabapentin 100 MG Capsule PO ×3 (06:14→17:20)
[2019-08-11] MEDS: hydroCHLOROthiazide 25 MG Tablet PO (06:14)
[2019-08-11] MEDS: Sertraline 100 MG Tablet PO (06:14)
[2019-08-11] MEDS: Nystatin Powder 15gm Bottle 1 APPLIC TOPICAL ×2 (06:19→21:06)
[2019-08-11] MEDS: Menthol/Lanolin/Calamine/Znox 113 GM Tube 1 APPLIC TOPICAL ×2 (06:20→21:06)
[2019-08-11] MEDS: Multivitamins,Ther W-Minerals Tablet 1 TABLET PO (07:45)
[2019-08-11] MEDS: Cyanocobalamin 500 MCG Tablet 1000 MCG PO (07:45)
[2019-08-11] MEDS: Calcium Carb/Vitamin D 1 TABLET Tablet PO (07:46)
--- NOTE | 2019-08-11 09:59 | CASEMGMT ---
Social Work Reviewed and agreed with social work internet marketing specialist documentation on this date. Sophia Whittington, CONSTRUCTION PROJECT MGR BACCARAT MANAGER
[2019-08-11 13:52] VITALS: BP 127/85; PULSE 84; RESP 18; TEMP 36.5; O2SAT 95
[2019-08-11] MEDS: MELATONIN 10 MG TABLET 5 MG PO (21:05)
[2019-08-11 21:12] VITALS: PULSE 70; RESP 16; O2SAT 97
[2019-08-12] MEDS: Senna/Docusate Sodium 1 Tablet 2 TABLET PO (05:09)
[2019-08-12] MEDS: Pantoprazole Sodium 40 MG Tablet PO (05:09)
[2019-08-12] MEDS: Enoxaparin 40 MG/0.4 ML Syringe SC (05:09)
[2019-08-12] MEDS: hydroCHLOROthiazide 25 MG Tablet PO (05:09)
[2019-08-12] MEDS: Sertraline 100 MG Tablet PO (05:09)
[2019-08-12] MEDS: Nystatin Powder 15gm Bottle 1 APPLIC TOPICAL ×2 (05:10→20:50)
[2019-08-12] MEDS: Menthol/Lanolin/Calamine/Znox 113 GM Tube 1 APPLIC TOPICAL ×2 (05:11→20:49)
[2019-08-12 05:15] VITALS: BP 113/68; PULSE 76
[2019-08-12] MEDS: Metoprolol(XL)Succ 100 MG Tablet PO (05:15)
[2019-08-12] MEDS: amLODIPine 2.5 MG Tablet PO (05:15)
[2019-08-12 05:40] LABS: Absolute Neutrophil Count 4.8 X10^3/uL (2.0-7.7); Basophil# 0.04 X10^3/uL; Basophil% 0.6 % (0-1); Eosinophil# 0.16 X10^3/uL; Eosinophils% 2.3 % (0-5); Hematocrit 35.8 % (37-47); Hemoglobin 11.4 g/dL (12.0-15.0); Lymphocyte % 18.5 % (19-41); Mean Corp Hgb Conc 31.8 g/dL (32-36); Mean Corpuscular Hgb 28.9 pg (27.0-32.0); Mean Corpuscular Volume 90.6 fL (81-99); Mean Platelet Vol. 8.9 fl (6.2-12.0); Monocyte# 0.66 X10^3/uL; Monocyte% 9.4 % (0-10); NRBC Flagged by Analyzer 0 % (0-5); Neutrophil # 4.79 X10^3/uL (2.7-7.7); Neutrophil % 68.1 % (47-70); Platelet Count 221 K/mm3 (150-450); RBC Distribution Width CV 13.3 % (11.6-14.6); Red Blood Count 3.95 M/mm3 (4.2-5.4)
[2019-08-12 05:58] LABS: Anion Gap 5 (5-15); BUN 18 mg/dL (7-18); BUN/Creat Ratio 26.4 RATIO (10-20); Calcium,Total 9.7 mg/dL (8.5-10.1); Chloride 103 mmol/L (98-107); Creatinine, Serum 0.68 mg/dL (0.55-1.02); EST Glomerular Filtration Rate 89 mL/min (>60); Est Glom Filt Rate - Afr Amer 108 mL/min (>60); Estimated Creatinine Clearance 40.83 ml/min; Glucose 101 mg/dL (74-106); Potassium 3.6 mmol/L (3.5-5.1); Sodium Level 138 mmol/L (136-145)
[2019-08-12] MEDS: Multivitamins,Ther W-Minerals Tablet 1 TABLET PO (07:56)
[2019-08-12] MEDS: Gabapentin 100 MG Capsule PO ×3 (07:56→17:35)
[2019-08-12] MEDS: Calcium Carb/Vitamin D 1 TABLET Tablet PO (07:56)
[2019-08-12] MEDS: Cyanocobalamin 500 MCG Tablet 1000 MCG PO (07:56)
[2019-08-12] MEDS: oxyCODONE 5 MG Tablet PO ×2 (09:10→22:38)
[2019-08-12 09:28] VITALS: PULSE 70
--- NOTE | 2019-08-12 10:28 | CASEMGMT ---
Social Work IDT met with pt, pt friend, and pt daughter via conference call. Pt is adlib for transfers and walking. Pt is able to walk with FWW 160ft. Pt able to do 5 steps at SBA with 2 HR. Pt is set up for all ADLs. Pt diet to change from regular diet to a cardiac diet with smaller portions to assist with edema in legs. Explained insurance to pt. Insurance in medical review from review date 08/09, pt agreeable to a possible DC on 08/14. SW to call about co-pay for OP therapy or pt to choose HHC. No DME needs. Will continue to follow. Melisa Lemons, social work manager internet retails sales Sophia Whittington, HEALTH FACILITIES SURVEYOR BEDSPREAD SEAMER
[2019-08-12] MEDS: Tuberculin,Purif.prot.deriv. 50 TU/ML Vial 5 ML ID (11:41)
[2019-08-12 14:26] VITALS: BP 140/92; PULSE 77; RESP 17; TEMP 36.4; O2SAT 95
--- NOTE | 2019-08-12 15:40 | CASEMGMT ---
Social Work Met with pt to discuss DC pans. Pt to DC 3/7 home alone. Pt requesting HHC options, since there is a co-pay for OP therapy. List of HHC agencies given. [facility] made. No DME needs. Plan: DC 3/7 home alone, [facility]-PT[facility]OT, No DME needs Melisa Lemons, social work integrated marketing intern Fortunato Whittington, CHANNEL CEMENTER CREW BOSS
--- NOTE | 2019-08-12 17:01 | CASEMGMT ---
Social Work Reviewed and agreed with social work buyer intern documentation on this date. Sophia Whittington, BREAD RACKER TEMPORARY RECEPTIONIST
--- NOTE | 2019-08-12 19:31 | PCM.DC ---
- Discharge Diagnoses Current Active Problems: Current Active and Chronic Problems Debility (Acute) Lumbar spinal stenosis (Chronic) Hypertension (Chronic) Muscle spasm (Acute) Vitamin B12 deficiency (Chronic) Lumbar radiculopathy (Chronic) Insomnia (Acute) Body mass index (bmi) 38.0-38.9, adult (Chronic) You will use the following diet at home:: No restrictions, Regular Your food should be the consistency of: Regular Your liquids should be the consistency of: Regular/Thin Discharge Activity: Return to Normal Activity, May Shower, Use Walker Weight Bearing Status: Weight bearing as tolerated Call your doctor if you observe: Fever of 101 or Higher, Inability to urinate, Inability to have a bowel movement, Shortness of breath, Chest pain, Uncontrolled pain Allergies/Adverse Reactions: Allergies No Known Allergies Allergy (Verified 08/04/19 20:37) Medications to take at Discharge Amlodipine [Norvasc] 2.5 mg PO DAILY 08/04/19 Calcium Carbonate/Vitamin D3 [Calcium 600 + Vit D Tablet] 1 tab PO DAILY 08/04/19 Cyanocobalamin [Vitamin B12] 1,000 mcg PO DAILY@0800 08/04/19 Folic Acid/Vit B Complex and C [Activite Tablet] 2 mg PO DAILY 08/04/19 Hydrochlorothiazide [Hctz] 25 mg PO DAILY 08/04/19 Melatonin 5 mg PO QHS 08/04/19 Metoprolol Succinate [Toprol Xl] 100 mg PO DAILY 08/04/19 Multivitamin with Minerals [Multiple Vitamin] 1 tab PO DAILY 08/04/19 Omeprazole 40 mg PO DAILY 08/04/19 Sertraline HCl 100 mg PO DAILY 08/04/19 Acetaminophen [Tylenol] 1,000 mg PO Q6H PRN PRN tablet 08/12/19 Baclofen 10 mg PO Q8H PRN PRN #90 tab 08/12/19 Gabapentin [Neurontin] 100 mg PO TIDCM #90 cap 08/12/19 Menthol/Lanolin/Calamine/Znox [Calmoseptine Ointment] 1 applic TOPICAL 0600,2200 tube 08/12/19 Nystatin Powder [Mycostatin Powder] 1 applic TOPICAL 0600,2200 bottle 08/12/19 Oxycodone [Oxyir] 5 mg PO Q4H PRN 7 Days #42 tablet 08/12/19 Polyethylene Glycol 3350 [Miralax] 17 gm PO DAILY #30 packet 08/12/19 Potassium Chloride [K-Dur] 20 meq PO DAILYCM #30 tab 08/12/19 Senna/Docusate Sodium [Senokot-S] 2 tab PO BID #120 tab 08/12/19 The following prescriptions were given: Baclofen 10 mg PO Q8H PRN PRN #90 tab PRN Reason: Muscle Spasm Transmission Status: Pending to [facility] [place] Potassium Chloride [K-Dur] 20 meq PO DAILYCM #30 tab Transmission Status: Pending to [facility] [place] Polyethylene Glycol 3350 [Miralax] 17 gm PO DAILY #30 packet Transmission Status: Pending to [facility] [place] Gabapentin [Neurontin] 100 mg PO TIDCM #90 cap Transmission Status: Pending to [facility] [place] Oxycodone [Oxyir] 5 mg PO Q4H PRN 7 Days #42 tablet PRN Reason: Pain Score 1-10/10 Transmission Status: Sent to [facility] [place] Senna/Docusate Sodium [Senokot-S] 2 tab PO BID #120 tab Transmission Status: Pending to [facility] [place] Primary Care Physician: Cheryl Russell DO [Primary Care Provider] - Please follow up with your Primary Care Physician in: 1 week. Test Results: Test results from this visit will be discussed in further detail at your follow-up appointment, if applicable. Please Follow Up With: Dr. Reagan Boland When: As scheduled. Proposed Discharge Date: 08/15/19
--- NOTE | 2019-08-12 19:32 | DS.PCM_ITS ---
Discharge Date and Diagnosis - Problem List Patient Problems: Active and Suspected Problems Debility (Acute) Muscle spasm (Acute) Insomnia (Acute) Date of Admission: 08/04/19 Date of Discharge: 08/15/19 - Primary Discharge Diagnosis Active and Suspected Problems Debility (Acute) Muscle spasm (Acute) Insomnia (Acute) - Secondary Discharge Diagnosis Chronic Problems Lumbar spinal stenosis (Chronic) Hypertension (Chronic) Vitamin B12 deficiency (Chronic) Lumbar radiculopathy (Chronic) Body mass index (bmi) 38.0-38.9, adult (Chronic) Gastroesophageal reflux disease (Chronic) Depression (Chronic) Benign essential HTN (Chronic) Hospital Course and Treatment Imaging Results: 08/12/19 11:23 Diet: 2 Gram Sodium Food consistency:: Regular Liquid Consistency:: Regular/Thin Is pt able to select menu?: Yes Diet Comments: Cardiac w/ small portions Labs (Last 48 Hours) 08/12/19 08/12/19 05:10 05:10 WBC 7.0 RBC 3.95 L Hgb 11.4 L Hct 35.8 L MCV 90.6 MCH 28.9 MCHC 31.8 L RDW Std Deviation 44.0 H RDW Coeff of Rufino 13.3 Plt Count 221 MPV 8.9 Immature Gran % (Auto) 1.100 H Neut % (Auto) 68.1 Lymph % (Auto) 18.5 L [place] % (Auto) 9.4 Eos % (Auto) 2.3 Baso % (Auto) 0.6 Absolute Neuts (auto) 4.8 Absolute Lymphs (auto) 1.30 Nucleated RBC % 0 Sodium 138 Potassium 3.6 Chloride 103 Carbon Dioxide 30.0 Anion Gap 5 BUN 18 Creatinine 0.68 Estim Creat Clear Calc 40.83 Est GFR (MDRD) Af Amer 108 Est GFR (MDRD) Non-Af 89 BUN/Creatinine Ratio 26.4 H Glucose 101 Calcium 9.7 Operations: None Procedures: None Summary of Care Provided: The patient is a 74 year old Female with below past medical history underwent L5-S1 back surgery 07/31/[address] Anthony Boland, admitted to TCU with debility, here for rehabilitation, strengthening, prior to discharge home alone. Discharge home alone, [facility] PT/OT. Patient Problems: Active and Suspected Problems Debility (Acute) Muscle spasm (Acute) Insomnia (Acute) - Physical Exam Vitals/I&O's: Vital Signs Temp Pulse Resp BP Pulse Ox 97.5 F L 77 17 140/92 H 95 08/12/19 14:26 08/12/19 14:26 08/12/19 14:26 08/12/19 14:26 08/12/19 14:26 Oxygen Delivery Method Room Air Weight: 102.965 kg Body Mass Index (BMI) 38.6 Intake and Output for Last 24 Hours 08/10/19 08/11/19 08/12/19 23:59 23:59 23:59 Intake Total 1220 / 1220 840 / 840 600 / 600 Balance 1220 / 1220 840 / 840 600 / 600 Laboratory Results 08/12/19 05:10: WBC 7.0, RBC 3.95 L, Hgb 11.4 L, Hct 35.8 L, MCV 90.6, MCH 28.9, MCHC 31.8 L, RDW Std Deviation 44.0 H, RDW Coeff of Rufino 13.3, Plt Count 221, MPV 8.9, Immature Gran % (Auto) 1.100 H, Neut % (Auto) 68.1, Lymph % (Auto) 18.5 L, [place] % (Auto) 9.4, Eos % (Auto) 2.3, Baso % (Auto) 0.6, Absolute Neuts (auto) 4.8, Absolute Lymphs (auto) 1.30, Nucleated RBC % 0 08/12/19 05:10: Sodium 138, Potassium 3.6, Chloride 103, Carbon Dioxide 30.0, Anion Gap 5, BUN 18, Creatinine 0.68, Estim Creat Clear Calc 40.83, Est GFR (MDRD) Af Amer 108, Est GFR (MDRD) Non-Af 89, BUN/Creatinine Ratio 26.4 H, Glucose 101, Calcium 9.7 Current Medications Acetaminophen (Tylenol) 1,000 mg PO Q6H PRN PRN PRN Reason: Pain Score 1-3/10 Last Admin: 08/11/19 06:14 Dose: 1,000 mg Documented by: Amlodipine Besylate (Norvasc) 2.5 mg PO DAILY JOSE Last Admin: 08/12/19 05:15 Dose: 2.5 mg Documented by: Baclofen (Lioresal) 10 mg PO Q8H PRN PRN PRN Reason: MUSCLE SPASM Last Admin: 08/10/19 21:53 Dose: 10 mg Documented by: Bisacodyl (Dulcolax) 10 mg PO DAILY PRN PRN Reason: Constipation Calamine/Phenol (Calmoseptine Ointment) 1 applic TOPICAL 599,2199 [facility]; Protocol Last Admin: 08/12/19 05:11 Dose: 1 applicatio Documented by: Calcium/Vitamin D (Os-Ruben 500mg + D) 1 tablet PO DAILY@0800 [facility] Last Admin: 08/12/19 07:56 Dose: 1 tablet Documented by: Cyanocobalamin (Vitamin B12) 1,000 mcg PO DAILY@0800 [facility] Last Admin: 08/12/19 07:56 Dose: 1,000 mcg Documented by: Enoxaparin Sodium (Lovenox) 40 mg SC DAILY@0600 [facility] Last Admin: 08/12/19 05:09 Dose: 40 mg Documented by: Gabapentin (Neurontin) 100 mg PO TIDCM [facility] Last Admin: 08/12/19 17:35 Dose: 100 mg Documented by: Hydrochlorothiazide (Hctz) 25 mg PO DAILY [facility] Last Admin: 08/12/19 05:09 Dose: 25 mg Documented by: Melatonin (Melatonin) 5 mg PO QHS [facility] Last Admin: 08/11/19 21:05 Dose: 5 mg Documented by: Metoprolol Succinate (Toprol Xl (Beta Leeanne)) 100 mg PO DAILY [facility] Last Admin: 08/12/19 05:15 Dose: 100 mg Documented by: Multivitamins/Minerals (Multivitamin With Minerals (Bkc)) 1 tablet PO DAILY@0800 [facility] Last Admin: 08/12/19 07:56 Dose: 1 tablet Documented by: Nystatin (Mycostatin Powder) 1 applic TOPICAL 599,2199 [facility]; Protocol Last Admin: 08/12/19 05:10 Dose: 1 applicatio Documented by: Oxycodone HCl (Oxyir) 5 mg PO Q4H PRN PRN PRN Reason: Pain Score 4-10/10 Last Admin: 08/12/19 09:10 Dose: 5 mg Documented by: Pantoprazole Sodium (Protonix) 40 mg PO DAILY [facility] Last Admin: 08/12/19 05:09 Dose: 40 mg Documented by: Polyethylene Glycol (Miralax) 17 gm PO DAILY [facility] Last Admin: 08/12/19 05:09 Dose: Not Given Documented by: Potassium Chloride (K-Dur) [facility] Last Admin: 08/12/19 07:56 Dose: 20 meq Documented by: Senna/Docusate Sodium (Senokot-S, Maggie-Colace) 2 tablet PO BID [facility] Last Admin: 08/12/19 17:35 Dose: Not Given Documented by: Sertraline HCl (Zoloft) 100 mg PO DAILY [facility] Last Admin: 08/12/19 05:09 Dose: 100 mg Documented by: Discharge Diet: No Restrictions Discharge Activity: Return to Normal Activity, May Shower, Use Walker Weight Bearing Status: Weight bearing as tolerated Call your doctor if you observe: Fever of 101 or Higher, Inability to urinate, Inability to have a bowel movement, Shortness of breath, Chest pain, Uncontrolled pain Home Medications: Medications to take at Discharge Amlodipine [Norvasc] 2.5 mg PO DAILY 08/04/19 Calcium Carbonate/Vitamin D3 [Calcium 600 + Vit D Tablet] 1 tab PO DAILY 08/04/19 Cyanocobalamin [Vitamin B12] 1,000 mcg PO DAILY@0800 08/04/19 Folic Acid/Vit B Complex and C [Activite Tablet] 2 mg PO DAILY 08/04/19 Hydrochlorothiazide [Hctz] 25 mg PO DAILY 08/04/19 Melatonin 5 mg PO QHS 08/04/19 Metoprolol Succinate [Toprol Xl] 100 mg PO DAILY 08/04/19 Multivitamin with Minerals [Multiple Vitamin] 1 tab PO DAILY 08/04/19 Omeprazole 40 mg PO DAILY 08/04/19 Sertraline HCl 100 mg PO DAILY 08/04/19 Acetaminophen [Tylenol] 1,000 mg PO Q6H PRN PRN tablet 08/12/19 Baclofen 10 mg PO Q8H PRN PRN #90 tab 08/12/19 Gabapentin [Neurontin] 100 mg PO TIDCM #90 cap 08/12/19 Menthol/Lanolin/Calamine/Znox [Calmoseptine Ointment] 1 applic TOPICAL 0600,2200 tube 08/12/19 Nystatin Powder [Mycostatin Powder] 1 applic TOPICAL 0600,2200 bottle 08/12/19 Oxycodone [Oxyir] 5 mg PO Q4H PRN 7 Days #42 tablet 08/12/19 Polyethylene Glycol 3350 [Miralax] 17 gm PO DAILY #30 packet 08/12/19 Potassium Chloride [K-Dur] 20 meq PO DAILYCM #30 tab 08/12/19 Senna/Docusate Sodium [Senokot-S] 2 tab PO BID #120 tab 08/12/19 Following Prescrptions Were Given to Patient: Baclofen 10 mg PO Q8H PRN PRN #90 tab PRN Reason: Muscle Spasm Transmission Status: Pending to [facility] - [place] Potassium Chloride [K-Dur] 20 meq PO DAILYCM #30 tab Transmission Status: Pending to [facility] - [place] Polyethylene Glycol 3350 [Miralax] 17 gm PO DAILY #30 packet Transmission Status: Pending to [facility]30 - [place] Gabapentin [Neurontin] 100 mg PO TIDCM #90 cap Transmission Status: Pending to [facility] - [place] Oxycodone [Oxyir] 5 mg PO Q4H PRN 7 Days #42 tablet PRN Reason: Pain Score 1-10/10 Transmission Status: Sent to [facility] - [place] Senna/Docusate Sodium [Senokot-S] 2 tab PO BID #120 tab Transmission Status: Pending to [facility] - [place] Primary Care Physician: Cheryl Russell DO [Primary Care Provider] - Please follow up with your Primary Care Physician in: 1 week. Please Follow Up With: Dr. Reagan Boland When: As scheduled. Disposition: Home with Home Health Minutes spent on discharge:: 35 Patient Condition:: Stable Medical Necessity - Tobacco Use Smoking Status: Former smoker Tobacco Use: Cigarettes Meaningful Use Info Meaningful Use Diagnoses (Choose all that apply): None applicable
[2019-08-12] MEDS: MELATONIN 10 MG TABLET 5 MG PO (20:45)
[2019-08-13] MEDS: Sertraline 100 MG Tablet PO (05:21)
[2019-08-13] MEDS: hydroCHLOROthiazide 25 MG Tablet PO (05:21)
[2019-08-13] MEDS: Pantoprazole Sodium 40 MG Tablet PO (05:21)
[2019-08-13] MEDS: amLODIPine 2.5 MG Tablet PO (05:21)
[2019-08-13] MEDS: Nystatin Powder 15gm Bottle 1 APPLIC TOPICAL ×2 (05:22→20:31)
[2019-08-13] MEDS: Menthol/Lanolin/Calamine/Znox 113 GM Tube 1 APPLIC TOPICAL ×2 (05:22→20:32)
[2019-08-13] MEDS: Enoxaparin 40 MG/0.4 ML Syringe SC (05:28)
[2019-08-13 05:30] VITALS: BP 115/64; PULSE 70
[2019-08-13] MEDS: Metoprolol(XL)Succ 100 MG Tablet PO (05:30)
[2019-08-13] MEDS: Calcium Carb/Vitamin D 1 TABLET Tablet PO (07:51)
[2019-08-13] MEDS: Cyanocobalamin 500 MCG Tablet 1000 MCG PO (07:52)
[2019-08-13] MEDS: Multivitamins,Ther W-Minerals Tablet 1 TABLET PO (07:52)
[2019-08-13] MEDS: Gabapentin 100 MG Capsule PO ×3 (07:52→21:59)
--- NOTE | 2019-08-13 10:40 | MDS.RN ---
Information for the mds was obtained from review of the clinical record, interview of resident, staff, and direct observation of resident's care.
--- NOTE | 2019-08-13 11:00 | NURSING ---
PT REFUSED OLIVIER WRAPS. EDUCATED PT ON WEARING THEM,PT STATED LIYA GOING TO APPOINTMENT TODAY AND WONT BE ABLE TO WEAR MY SHOES. RN AWARE.
--- NOTE | 2019-08-13 12:15 | NURSING ---
Addendum entered by Sri Sheth 08/13/19 16:25: pt returned from appt w/orders for brace on when ambulating, NO brace with sitting or up to BR. Cover incision w/dry gauze dressing until DC home Original Note: pt off unit with son for appt with surgeon at this time
[2019-08-13] MEDS: Acetaminophen 500 MG Tablet 1000 MG PO (16:20)
[2019-08-13 16:54] VITALS: BP 99/54; PULSE 81; RESP 22; TEMP 36.7; O2SAT 94
[2019-08-13] MEDS: MELATONIN 10 MG TABLET 5 MG PO (21:59)
[2019-08-14] MEDS: Acetaminophen 500 MG Tablet 1000 MG PO ×2 (03:43→20:38)
[2019-08-14] MEDS: Baclofen 10 MG Tablet PO ×2 (03:46→23:20)
[2019-08-14] MEDS: hydroCHLOROthiazide 25 MG Tablet PO (04:26)
[2019-08-14 04:27] VITALS: BP 119/69; PULSE 78
[2019-08-14] MEDS: Metoprolol(XL)Succ 100 MG Tablet PO (04:27)
[2019-08-14] MEDS: Sertraline 100 MG Tablet PO (04:28)
[2019-08-14] MEDS: Pantoprazole Sodium 40 MG Tablet PO (04:28)
[2019-08-14] MEDS: Menthol/Lanolin/Calamine/Znox 113 GM Tube 1 APPLIC TOPICAL (04:28)
[2019-08-14] MEDS: amLODIPine 2.5 MG Tablet PO (04:28)
[2019-08-14] MEDS: Nystatin Powder 15gm Bottle 1 APPLIC TOPICAL ×2 (04:28→20:42)
[2019-08-14] MEDS: Enoxaparin 40 MG/0.4 ML Syringe SC (04:29)
[2019-08-14] MEDS: Cyanocobalamin 500 MCG Tablet 1000 MCG PO (07:53)
[2019-08-14] MEDS: Calcium Carb/Vitamin D 1 TABLET Tablet PO (07:54)
[2019-08-14] MEDS: Gabapentin 100 MG Capsule PO ×3 (07:54→18:44)
[2019-08-14] MEDS: Multivitamins,Ther W-Minerals Tablet 1 TABLET PO (07:54)
[2019-08-14 14:07] VITALS: BP 121/76; PULSE 65; RESP 16; TEMP 37; O2SAT 94
[2019-08-14] MEDS: MELATONIN 10 MG TABLET 5 MG PO (20:38)
[2019-08-15] MEDS: Enoxaparin 40 MG/0.4 ML Syringe SC (06:35)
[2019-08-15 06:36] VITALS: BP 152/94; PULSE 72
[2019-08-15] MEDS: amLODIPine 2.5 MG Tablet PO (06:36)
[2019-08-15] MEDS: Sertraline 100 MG Tablet PO (06:36)
[2019-08-15] MEDS: hydroCHLOROthiazide 25 MG Tablet PO (06:36)
[2019-08-15] MEDS: Gabapentin 100 MG Capsule PO (06:36)
[2019-08-15] MEDS: Pantoprazole Sodium 40 MG Tablet PO (06:36)
[2019-08-15] MEDS: Metoprolol(XL)Succ 100 MG Tablet PO (06:36)
[2019-08-15] MEDS: Nystatin Powder 15gm Bottle 1 APPLIC TOPICAL (06:50)
[2019-08-15] MEDS: Menthol/Lanolin/Calamine/Znox 113 GM Tube 1 APPLIC TOPICAL (06:51)
[2019-08-15] MEDS: Multivitamins,Ther W-Minerals Tablet 1 TABLET PO (07:57)
[2019-08-15] MEDS: Calcium Carb/Vitamin D 1 TABLET Tablet PO (07:57)
[2019-08-15] MEDS: Cyanocobalamin 500 MCG Tablet 1000 MCG PO (07:58)
[2019-08-15] MEDS: Baclofen 10 MG Tablet PO (07:58)
[2019-08-15 10:00] VITALS: PULSE 82; RESP 16; O2SAT 97
[2019-08-15 10:53] VITALS: BP 124/79; PULSE 82; RESP 16; TEMP 36.6; O2SAT 97
== END 2019-08-15 11:06 | disposition home health service (06) | DRG 561 ==
PROVIDERS: Admitting Provider Family Medicine Geriatric Medicine; PCP Internal Medicine; Visit Provider Family Medicine Geriatric Medicine
DX: Z47.89 Encounter for other orthopedic aftercare (principal); K21.9 Gastro-esophageal reflux disease without esophagitis; Z23 Encounter for immunization; I10 Essential (primary) hypertension; F32.9 Major depressive disorder, single episode, unspecified; M54.16 Radiculopathy, lumbar region; M48.061 Spinal stenosis, lumbar region without neurogenic claudication; E53.8 Deficiency of other specified B group vitamins; Z87.891 Personal history of nicotine dependence; E87.6 Hypokalemia
CPT/HCPCS: 36415; 80048; 85025; 97110; 97116; 97162; 97166; 97530; 97535; 97802; 90670

== ENCOUNTER → 2020-03-19 | Outpatient (CLI) | payer MEDICARE, SELFPAY | END | disposition home or self-care (01) | LOC: LABSPEC 11:07 | PROVIDERS: PCP Internal Medicine; Referring Provider Internal Medicine; Visit Provider Internal Medicine | DX: R30.0 Dysuria (principal) | CPT/HCPCS: 87086; 87088 ==

== ENCOUNTER → 2020-12-23 13:03 | Outpatient (CLI) | payer MEDICARE, SELFPAY ==
--- NOTE | 2020-12-23 13:06 | RAD_ITS ---
STUDY: X-RAY CHEST REASON FOR EXAM: Female, 75 years old. BRONCHITIS TECHNIQUE: PA and lateral views of the chest. COMPARISON: Comparison is made with prior study dated 01/06/2013. FINDINGS: The lungs are clear and expanded. There is no demonstrated pleural abnormality. Normal size heart. Normal mediastinum and hany. Normal visualized pulmonary arteries. There is atherosclerotic tortuosity of the aortic arch and descending thoracic aorta. There are diffuse degenerative changes of the visualized thoracic spine. Increased kyphosis. Normal visualized ribs, clavicles, and shoulders. There is no demonstrated abnormality of the visualized soft tissue structures of the upper abdomen. RAD/Chest PA and Lateral IMPRESSION: No acute abnormalities present. Electronically Signed: Ck Gilliland MD at 13:32 EDT , Service support ,
== END ==
PROVIDERS: PCP Internal Medicine; Referring Provider Nurse Practitioner; Visit Provider Nurse Practitioner
DX: J40 Bronchitis, not specified as acute or chronic (principal)
CPT/HCPCS: 71046

== ENCOUNTER → 2021-03-30 13:50 | Outpatient (CLI) | payer MEDICARE, SELFPAY ==
--- NOTE | 2021-03-30 13:59 | ECHOD_ITS ---
Reason For Study: LAFB Procedure This was a 2D Doppler, Color Flow transthoracic echocardiogram. Exam performed in department. Left Ventricle Normal LV size. The estimated ejection fraction is 55 %. Diastolic function is indeterminate. No regional wall motion abnormalities noted. Right Ventricle Normal RV size. Normal systolic function. Atria The left atrium is mildly enlarged. Normal right atrium. No doppler evidence for ASD. Mitral Valve There is no mitral valve stenosis. Trivial mitral valve insufficiency. Tricuspid Valve There is no tricuspid stenosis. Mild tricuspid valve insufficiency. Pulmonary artery systolic pressure is 40 mmHg. Aortic Valve Trisinus/trileaflet aortic valve. There is no aortic stenosis. Mild (1+) aortic valve insufficiency. Pulmonic Valve There is no pulmonic valvular stenosis. Trivial pulmonic valve insufficiency. Great Vessels Normal aortic root. Pericardium/Pleural No pericardial effusion. MMode/2D Measurements & Calculations LVIDd: 4.6 cm IVSd: 1.4 cm Ao root diam: 3.7 cm LVIDs: 3.0 cm LVPWd: 1.1 cm RVDd: 3.8 cm FS: 35.8 % LAV(MOD-bp): 73.7 ml LVAd ap4: 30.2 cm2 LVAd ap2: 27.0 cm2 LAV(MOD-bp) Indexed: 36.3 ml/m2 LVLd ap4: 8.1 cm LVLd ap2: 7.8 cm LAV(MOD-sp2): 60.6 ml EDV(MOD-sp4): 90.7 ml EDV(MOD-sp2): 79.1 ml LAV(MOD-sp4): 82.2 ml EDV(sp4-el): 94.9 ml EDV(sp2-el): 79.9 ml LVAs ap4: 16.1 cm2 LVAs ap2: 16.6 cm2 LVLs ap4: 6.8 cm LVLs ap2: 6.9 cm ESV(MOD-sp4): 32.3 ml ESV(MOD-sp2): 33.7 ml ESV(sp4-el): 32.3 ml ESV(sp2-el): 34.0 ml EF(MOD-sp4): 64.4 % EF(MOD-sp2): 57.3 % EF(sp4-el): 65.9 % SV(MOD-sp4): 58.4 ml SV(MOD-sp2): 45.4 ml SV(sp4-el): 62.6 ml LA dimension(2D): 4.5 cm LA A4 area: 26.3 cm2 RA A4 area: 15.3 cm2 Doppler Measurements & Calculations MV E max lazaro: 76.9 cm/sec Lat Peak E' Lazaro: 9.4 cm/sec Med Peak E' Lazaro: 5.8 cm/sec MV A max lazaro: 97.3 cm/sec E/E' lat: 8.1 E/E' med: 13.4 MV E/A: 0.79 Ao V2 max: 172.6 cm/sec AI max lazaro: 430.4 cm/sec LV V1 max: 108.7 cm/sec Ao max P.9 mmHg AI max P.1 mmHg LV V1 max P.7 mmHg AI dec slope: 183.2 cm/sec2 AI P1/2t: 688.0 msec PA V2 max: 99.8 cm/sec TR max lazaro: 280.1 cm/sec TR max P.4 mmHg ECHO/Echo Complete Interpretation Summary The estimated ejection fraction is 55 %. Diastolic function is indeterminate. The left atrium is mildly enlarged. Trivial mitral valve insufficiency. Mild (1+) aortic valve insufficiency. Ordering Physician: Cheryl Russell Referring Physician: Cheryl Russell Performed By: Tess Villaseñor RDCS
== END ==
PROVIDERS: PCP Internal Medicine; Referring Provider Internal Medicine; Visit Provider Internal Medicine
DX: R94.31 Abnormal electrocardiogram [ECG] [EKG] (principal); I44.4 Left anterior fascicular block
CPT/HCPCS: 93306

== ENCOUNTER → 2021-05-23 13:50 | Outpatient (CLI) | payer MEDICARE, SELFPAY ==
--- NOTE | 2021-05-23 14:02 | CT_ITS ---
STUDY: CT SCAN LOWER EXTREMITY RIGHT REASON FOR EXAM: Female, 76 years old. [facility] RADIATION DOSAGE (If Supplied By Facility): CTDIvol = ( 26.98 ) mGy, DLP = ( 1456.14 ) mGycm. Individualized dose optimization techniques were used for this CT.? TECHNIQUE: Multiple axial tomographic images of the right hip joint, right knee joint and right ankle joint were obtained. Coronal and sagittal reconstruction was obtained as well. COMPARISON: None. FINDINGS: Imaging of the right hip joint was obtained. There is a mnka-ek-nrojxfad degree of joint space narrowing. No evidence of dislocation. No soft tissue masses seen. Imaging of the knee joint was obtained. There is a marked degree of joint space narrowing involving the medial compartment of the joint with evidence of a subchondral geodes along the medial tibial plateau. Mild degree of joint space narrowing involving the patellofemoral joint. No significant joint effusion is seen. Imaging of the ankle joint was obtained. No significant abnormality is seen. CT/Extremity Lower without Contra IMPRESSION: Marked degree of a joint space narrowing involving the medial compartment of knee joint with evidence of a subchondral geodes involving the medial tibial plateau. Electronically Signed: Ck Gilliland MD at 14:43 EST , Service support ,
== END ==
PROVIDERS: PCP Internal Medicine; Referring Provider Orthopaedic Surgery; Visit Provider Orthopaedic Surgery
DX: M17.11 Unilateral primary osteoarthritis, right knee (principal)
CPT/HCPCS: 73700

== ENCOUNTER 2021-06-05 15:59 | Observation (INO) | payer MEDICARE, SELFPAY ==
--- NOTE | 2021-05-23 13:55 | EKG12_ITS ---
Test Reason : PREOP Blood Pressure : / mmHG Vent. Rate : 062 BPM Atrial Rate : 062 BPM P-R Int : 184 ms QRS Dur : 100 ms QT Int : 418 ms P-R-T Axes : 070 -46 006 degrees QTc Int : 424 ms Normal sinus rhythm Left anterior fascicular block Poor R wave progression Abnormal ECG Confirmed by TAMEKA RODRIGUES, HIRAM ([id number]), editor greeting card CARLITOS MCNEILL ([id number]) on 05/24/2021 12:16:53 PM Referred By: Louie Stark Confirmed By:HIRAM ENGLISH MD
[2021-05-23 15:57] LABS: Magnesium 2.2 mg/dL (1.6-2.6)
[2021-06-05] VITALS (21 sets, daily range): BP systolic 83–139; BP diastolic 55–93; PULSE 55–73; RESP 12–18; TEMP 36.3–36.8; O2SAT 92–98; BMI 40.1
[2021-06-05] MEDS: Acetaminophen 500 MG Tablet 1000 MG PO ×2 (11:27→18:37)
[2021-06-05 12:41] LABS: Bedside Glucose 103 mg/dL (70-110)
--- NOTE | 2021-06-05 12:50 | KNEE_PTH ---
PATIENT: TOREY SUAREZ LOC: MS2 U#:[id number] AGE/SX: 76/F ROOM: [facility] RE06/05/[address]: Dr. Louie Stark DO : 1945 BED: 1 DIS: 06/06/2021 SPEC #: [id number] RECD: 06/05/21 15:00 STATUS: MICHAEL RENilton #: [id number] TERRIE: 06/05/21 12:[address]: Louie Stark DEPT: SURGICAL PATHOLOGY RECD BY: Patti Knapp ENTERED: 06/06/21 09:37 SP TYPE: TOTAL KNEE OTHR DR: Dr. Cheryl Russell DO Tissues: Knee, NOS Procedures: Decalcification bone/plaque Surgery Specimen Level IV HEADER OPERATION: ERAS, total knee replacement robotic arm assist PRE-OP DIAGNOSIS: Osteoarthritis right knee TISSUE SUBMITTED: Bone right knee MICROSCOPIC DIAGNOSIS Bone right knee, total knee replacement/resection: Pieces of bone with degenerative osteoarthritic changes. ELISE:abimael 06/12/2021 MICROSCOPIC DESCRIPTION Slides are reviewed. GROSS DESCRIPTION Received is one container designated bone right knee. The specimen consists of multiple fragments of turner-yellow bone measuring in aggregate 10 x 8 x 3 cm. No soft tissue is identified. A number of bony fragments contain articular surfaces consistent with tibial plateau and femoral condyle and displaying prominent osteophyte formation, eburnation, and bone erosion. Silver Lap Machine Tender sections are submitted one cassette after decalcification. / ELISE:abimael 06/06/21 TC:5 CPT: 16676, 25994
--- NOTE | 2021-06-05 14:15 | OP.PCM_ITS ---
Report of Operation Date of Procedure: 06/05/21 Pre-Operative Diagnosis: OA Right knee Post-Operative Diagnosis: same Surgery/Procedure Performed:: Right TKR Description of Surgical Findings:: Report of Operation Date of Procedure: 06/05/21 Preoperative Diagnosis: [right ] knee primary osteoarthritis Postoperative Diagnosis: [right ] knee primary osteoarthritis Operation: Robotic Assisted Knee Total Arthroplasty, [right ] knee Surgeon: Dr Louie Stark DO Ibm Mainframe Developer: Eliseo Guerra PA-C Anesthesia: general Anesthesiologist: Yasmani Ramírez M.D. Findings: Stable knee with good patella tracking Specimen(s): Bony cuts Complications: No intraoperative complications Estimated Blood Loss: 20 cc IV Fluids: 1000 cc crystalloid Implants Used: 1. [place] [employer] press-fit CR size 3 femur 2. [place] [employer] size 4 tibia 3. 29 mm patella 4. 11 mm CS polyethylene Brief History Operative Indications: [ (76 y\o female) ] with history of [right ] knee osteoarthrosis with radiographic findings with loss of joint space, osteophyte formation and subchondral sclerosis. Failed conservative measures as mentioned in the H&P. Discussion of total knee arthroplasty as well as risk and benefits were discussed with the patient including but not limited to blood loss, DVTs, PEs, neurovascular damage, general risk of anesthesia including loss of life, and stiffness or instability were also discussed with the patient. Patient demonstrated understanding and was able to sign informed consent. Procedure: On the date of procedure, patient's [ ] lower extremity was marked in the preoperative area. The patient was then taken back to the operating room where that patient was placed on the table in the supine position. All bony promi nences were identified and well-padded. Anesthesia assumed control of the C- spine and airway throughout the remainder of the procedure. A tourniquet was placed on the [right ] upper thigh and the leg was prepped in a sterile fashion. The surgeon then scrubbed at this time. Upon reentering the room, the [ right ] lower extremity was draped in a standard orthopedic fashion. A timeout was then called and everyone agreed upon the side, the site, the procedure to be performed, patient's identity and antibiotics given. Esmarch bandage was used to exsanguinate the extremity and the tourniquet was placed up to 250 mmHg with the knee in flexion. A midline skin incision was made and a sharp dissection was taken down through skin, subcutaneous tissue and fat. The standard medial parapatellar incision was made and the patella was subluxed laterally. An appropriate deep MCL release was done and the fat pad was resected. Our attention was then directed to the patella. The patella was everted and a flat resection was made. The knee was then flexed up and 2 femoral pins were placed inside the incision and 2 tibial pins were placed outside the incision in the medial tibia bicortically. Once this was completed, the 2 checkpoints in the femur and tibia were placed. Knee was then flexed up and the bony landmarks were registered. Once the was completed, the knee taken through range of motion and manually stressed allowing us to plan for an appropriate tibial cut. The robotic arm was brought into the field sterilely and checkpoint and saw were registered. Based on the patient's deformity, the tibial cut was made in [2 degrees varus ]. At this time, the tensioner was then placed in the joint and ligament tension was checked at 90 degrees and full extension. Based on the patient's ligamentous tension, appropriate adjustments were made to the operative plan and ligament releases were done. Once we were happy with our operative plan with balanced flexion and extension gaps, our attention was directed to the femur. The robot was brought into the field sterilely and registered. Posterior condylar cuts, anterior chamfer cuts and anterior cuts were appropriately made for a [size 3 ] femur. When these were completed, the saws were switched out in the distal femoral and posterior chamfer cuts were made. Protecting the soft tissue throughout this time. A [size 4 ] base plate was selected. The knee was flexed to 90 degrees and soft tissues and posterior osteophytes were removed from the joint. 40 cc of the periarticular injection was injected into the posterior medial corner of the joint. The appropriate trials were then placed on the femur and tibia. A trial polyethylene was trialed to ensure proper balancing and stability of the knee. The appropriate tibial internal rotation was then marked with a bovie. Our attention was then directed to the patella. The lug holes were drilled and the patella trial was placed. Patellar tracking was checked and deemed radha ropriate. Once we were happy, lug holes were drilled for the femur and trial components were removed. The tibia was subluxed and pinned into place and the keel was punched and drilled appropriately. Final components were verified and opened. The wound was copiously irrigated with normal saline. The components were impacted into place with the tibia, femur and finally the patella. The trial poly component was placed and the knee was placed in full extension. The tracking, alignment and balance were verified and a [11 mm CS ] polyethylene component was placed. Once the final components were placed an Irrisept lavage was performed and the wound was copiously irrigated with normal saline solution and the periarticular injection was given. the wound was closed in a layer-ontiveros fashion using #1 vicryl interrupted sutures for the arthrotomy, 2-0 interrupted vicryl suture for the subcuticular layer and ariana for final skin closure. A sterile compressive dressing was then placed. The patient was then awakened from anesthesia, transferred to the [facility] and transferred to the PACU for recovery. My physician medicine assistant was a vital part of this case. He was important in appropriate retraction during the case, and protection of soft tissues during bony cuts. His intimate knowledge of the case and my steps aided in safe and expedient completion of the procedure as well as appropriate position of the leg during the case. He was also vital in assisting with closure under my direct supervision. Due to the complexity of this case, robotic arm was used to assist in the surgery to improve accuracy and clinical outcomes. Post-op Plan: DVT ppx; ASA 81 mg BID, thigh high compression stockings Follow up: in office in 2 weeks for wound check PT: to start POD #0 at hospital, outpatient PT should be arranged. Preoperative antibiotic: Ancef 2 grams IV Louie Stark DO Surgeon: Louie Stark gill box operator: Eliseo Guerra Type of Anesthesia: General Anesthesiologist: Yasmani Ramírez Admloida VTE Documentation VTE Present on Admission: No VTE Mechan Device Prophylaxis: SCD's and Thigh High RAISSA Hose VTE Pharm Prophylaxis ordered?: Yes
--- NOTE | 2021-06-05 14:56 | RAD_ITS ---
INDICATION: post op -- AP and Lateral xray of operative knee in PACU EXAMINATION/TECHNIQUE: X-RAY - RIGHT XR Knee 1 or 2 Views 2 VIEWS COMPARISON: None. FINDINGS: Prominence of the soft tissues is seen most noted along the anterior aspect of the suprapatellar region was overlying surgical ariana consistent with postoperative changes. Unremarkable alignment of the right knee prosthesis. No evidence of cortical irregularity or lucency to suggest a fracture. RAD/Knee 1 or 2 Views IMPRESSION: Unremarkable right knee prosthesis, postoperative changes. Electronically Signed: Raji Pollard MD at 15:56 EST Tel , Service support ,
[2021-06-05] MEDS: Lactated Ringers 1,000 ML 999 ML IV (15:19)
[2021-06-05] MEDS: Gabapentin 100 MG Capsule PO (15:49)
[2021-06-05] MEDS: Gabapentin 400 MG Capsule PO (15:49)
--- NOTE | 2021-06-05 16:00 | CASEMGMT ---
SOCIAL WORK Informed by nursing, daughter requesting to speak with social media coordinator. Call to patient's daughter, Anais [place] ([phone]) daughter with questions regarding outpatient vs rehab. Daughter states patient lives alone and has zero pain tolerance. Informed therapy will complete eval and CM/SW will follow up. Daughter states if rehab needed first choice is [facility] Rehab and second is [facility]. Plan: SHANAE Salcedo, FORENSIC ECONOMIST, MEMORY CARE DIRECTOR
--- NOTE | 2021-06-05 18:29 | PCS.PANDOC ---
PANDEMIC DOCUMENTATION INITIATED: Date: 01/23/2021 Time: 190
[2021-06-05] MEDS: Lactated Ringers 1,000 ML 125 ML IV (18:38)
[2021-06-05] MEDS: Cefazolin 1 GM/50 ML BAG IV (20:06)
[2021-06-05] MEDS: Aspirin 81 MG TAB.CHEW PO (22:02)
[2021-06-05] MEDS: Senna/Docusate Sodium 1 Tablet 2 TABLET PO (22:02)
[2021-06-06] VITALS (11 sets, daily range): BP systolic 92–135; BP diastolic 49–72; PULSE 57–78; RESP 16–18; TEMP 36.3–36.9; O2SAT 91–96
[2021-06-06] MEDS: oxyCODONE 5 MG Tablet PO ×4 (02:47→12:13)
[2021-06-06] MEDS: Acetaminophen 500 MG Tablet 1000 MG PO ×2 (03:49→11:32)
[2021-06-06] MEDS: Cefazolin 1 GM/50 ML BAG IV (03:50)
[2021-06-06 05:40] LABS: Hematocrit 31.6 % (37-47); Hemoglobin 10.2 g/dL (12.0-15.0); Mean Corp Hgb Conc 32.3 g/dL (32-36); Mean Corpuscular Hgb 29.4 pg (27.0-32.0); Mean Corpuscular Volume 91.1 fL (81-99); Mean Platelet Vol. 9.4 fl (6.2-12.0); Platelet Count 140 K/mm3 (150-450); RBC Distribution Width CV 14.1 % (11.6-14.6); RBC Distribution Width SD 47.1 fl (35.1-43.9); Red Blood Count 3.47 M/mm3 (4.2-5.4); White Blood Count 8.5 K/mm3 (4.4-11.0)
[2021-06-06 06:02] LABS: Anion Gap 3 (5-15); BUN 13 mg/dL (7-18); BUN/Creat Ratio 18.2 RATIO (10-20); Calcium,Total 8.3 mg/dL (8.5-10.1); Chloride 98 mmol/L (98-107); Creatinine, Serum 0.71 mg/dL (0.55-1.02); EST Glomerular Filtration Rate 85 mL/min (>60); Est Glom Filt Rate - Afr Amer 102 mL/min (>60); Estimated Creatinine Clearance 39.59 ml/min; Glucose 108 mg/dL (74-106); Potassium 3.5 mmol/L (3.5-5.1); Sodium Level 133 mmol/L (136-145)
--- NOTE | 2021-06-06 07:41 | PCM.PN.ORT ---
Subjective Subjective Patient lying in bed sleeping. Patient easy to awake. Patient states she has an extremely painful night last night. Patient feels the pain medication has helped considerably. Her pain is well-managed at this time. Patient denies chest pain, shortness of breath, calf pain, nausea vomiting. Patient feels she is not able to return home is she does not think she will do well with her pain. Patient is also requested the possibility of being admitted to the TCU unit at [facility] Objective Data Objective Data Vital Signs: Vital Signs Temp Pulse Resp BP Pulse Ox 98.3 F 59 L 16 112/72 95 06/06/21 03:24 06/06/21 03:24 06/06/21 03:24 06/06/21 03:24 06/06/21 03:24 Oxygen Flow Rate (L/min) 3 Oxygen Delivery Method Nasal Cannula Weight: 102.9 kg Body Mass Index (BMI) 40.1 Intake & Output: Intake and Output for Last 24 Hours 06/04/21 06/05/21 06/06/21 23:59 23:59 23:59 Intake Total 1486 / 1886 1810 / 1810 Balance 1486 / 1886 1810 / 1810 Lab / Micro Data Result Diagrams: 06/06/21 05:05 06/06/21 05:05 Labs: Laboratory Results - last 24 hr 06/05/21 10:51: POC Glucose 103 06/06/21 05:05: WBC 8.5, RBC 3.47 L, Hgb 10.2 L, Hct 31.6 L, MCV 91.1, MCH 29.4, MCHC 32.3, RDW Std Deviation 47.1 H, RDW Coeff of Rufino 14.1, Plt Count 140 L, MPV 9.4 06/06/21 05:05: Sodium 133 L, Potassium 3.5, Chloride 98, Carbon Dioxide 32.0, Anion Gap 3 L, BUN 13, Creatinine 0.71, Estim Creat Clear Calc 39.59, Est GFR (MDRD) Af Amer 102, Est GFR (MDRD) Non-Af 85, BUN/Creatinine Ratio 18.2, Glucose 108 H, Calcium 8.3 L Micro: Microbiology 05/23/21 14:31 Swab (Method) Nasal Screen MRSA/MSSA - Final Radiography Diagnostic Testing: Radiology Impression Knee X-Ray 06/05/21 14:56 IMPRESSION: Unremarkable right knee prosthesis, postoperative changes. Electronically Signed: Raji Pollard MD at 15:56 EST Tel , Service support , Physical Exam Narrative Patient lying in bed alert oriented. Patient no respiratory distress, speaking full sentences. Patient is full range of motion of the upper extremities with good muscle tone and strength. The dressing was clean dry intact. Neurovascular she is otherwise intact. No calf tenderness no signs or symptoms of DVT. Const alert and oriented x3 Neuro CN's II-XII intact bilaterally Psych mental status grossly normal Assessment & Plan Assessment/Plan (1) Status post total right knee replacement not using cement: PLAN: 1. Continue all pain medications as prescribed 2. Aspirin 81 mg 1 p.o. every 12 hours x30 days for postop DVT prophylaxis 3. Continue physical therapy, weight-bear as tolerated with walker 4. Encourage incentive spirometry 5. Ice applied to the right knee 6. Patient will discuss with case management for possible placement to transitional care unit at [facility]
[2021-06-06] MEDS: Gabapentin 100 MG Capsule PO ×2 (07:53→11:32)
[2021-06-06] MEDS: Calcium Carb/Vitamin D 1 TABLET Tablet PO (07:53)
[2021-06-06] MEDS: Cyanocobalamin 500 MCG Tablet 1000 MCG PO (07:54)
[2021-06-06] MEDS: Multivitamins,Ther W-Minerals Tablet 1 TABLET PO (07:54)
--- NOTE | 2021-06-06 09:52 | CASEMGMT ---
Social Work Attempted to speak with patient about placement, therapy currently working with patient. Will continue to follow. Ann SIDDIQI, GUIDO
[2021-06-06] MEDS: Senna/Docusate Sodium 1 Tablet 2 TABLET PO (10:20)
[2021-06-06] MEDS: Aspirin 81 MG TAB.CHEW PO (10:20)
[2021-06-06] MEDS: Pantoprazole Sodium 40 MG Tablet PO (10:20)
[2021-06-06] MEDS: amLODIPine 2.5 MG Tablet PO (10:20)
[2021-06-06] MEDS: Metoprolol(XL)Succ 100 MG Tablet PO (10:20)
[2021-06-06] MEDS: Sertraline 100 MG Tablet PO (10:20)
[2021-06-06] MEDS: hydroCHLOROthiazide 25 MG Tablet PO (10:20)
--- NOTE | 2021-06-06 10:55 | CASEMGMT ---
Addendum entered by Dorina Owusu 06/06/21 11:33: Patient updated that patient is approved for discharge to TCU today. Original Note: Social Work Consult: Placement Referral source: Social work Met with patient in room. Introduced self and transition social worker role. Patient agreeable to speak with this transition social worker. Patient reports to live alone in an apartment with a first floor set up. Patient reports to have a walker and cane. Patient states to drive and prior level of functioning was independent with occasional use of the walker or cane. Patient reports to have supportive family. Patient concerned about returning to home alone and requesting to transition to a penitentiary facility. Therapy also recommending for patient to transition to a penitentiary facility. This transition social worker provided patient with a list of in-network penitentiary facilities that are in relation to patient geographical region. Patient request for referral to be sent to TCU. Patient also request for this transition social worker to contact patient daughter, Zhao. Patient HealthCare POA is [place] and documents are on file. Telephone call to [facility]e Langley. TCU has an open been and [employer] is waiving pre-certs. TCU able to accept today. RN CM contacting Eliseo NEGRETE. Patient cleared for discharge today. This transition social worker faxed Transfer form to be completed by Eliseo Palomares to [phone]. Eliseo Palomares reports to then be able to come in after business hours to complete scripts for patient pain medication. Telephone call to patient daughter, . updated on above information. Proposed discharge date: 06/06/2021 PLAN: D/C to TCU. GUIDO Salguero
--- NOTE | 2021-06-06 12:30 | CASEMGMT ---
Social Work PENELOPE Lorenzo stopped in to complete prescriptions for pain medication. Nursing given prescriptions to be put with patient discharge packet. COVID test results obtained. Patient cleared for discharge per medical team. Telephone call to TCU, Kylee. Kylee updated on above. Transfer to extended care form faxed to TCU. Telephone call to KYMBERLY Cortes on TCU, verbal hand off provided. Patient updated on above. Will continue to follow. Ann SIDDIQI, AREN-S
--- NOTE | 2021-06-06 14:38 | NURSING ---
report called to isis paez on TCU.
== END 2021-06-06 15:00 | disposition skilled nursing facility (03) ==
LOC: SDC 16:21 → MS2 16:21
PROVIDERS: Admitting Provider Orthopaedic Surgery; PCP Internal Medicine; Referring Provider Orthopaedic Surgery; Visit Provider Orthopaedic Surgery
PROC: 0SRC0JZ Replacement of Right Knee Joint with Synthetic Substitute, Open Approach (ICD-10-PCS; CPT 27447; principal; 2021-06-05 12:20)
DX: M17.11 Unilateral primary osteoarthritis, right knee (principal); Z23 Encounter for immunization; I10 Essential (primary) hypertension; Z79.899 Other long term (current) drug therapy; Z87.891 Personal history of nicotine dependence; K21.9 Gastro-esophageal reflux disease without esophagitis; G25.81 Restless legs syndrome
CPT/HCPCS: 01402; 27447; 64447; S2900; 36415; 73560; 80048; 82962; 83735; 85027; 87081; 87426; 88305; 88311; 93005; 96361; 96365; 96366; 97110; 97116; 97162; 97166; 97535; 99218; 99251; C1713; G0008; J7120; 90686; G0378; G0463

== ENCOUNTER 2021-06-06 15:06 | Inpatient (IN) | payer MEDICARE, SELFPAY ==
[2021-06-06 15:09] VITALS: BP 116/66; PULSE 73; RESP 18; TEMP 36.7; O2SAT 94; BMI 42.8
--- NOTE | 2021-06-06 15:43 | NURSING ---
Addendum entered by Carmen Boland 06/06/21 15:49: Verified time for Appt with Eliseo Guerra PA-C on 07/04/21 at 1100. Original Note: Spoke with Dr. Stark's office to verify appt. for follow up had appt on 06/16/20 for ariana removal but they will cancel that appt and okay to remove ariana here on 05/17/21. Pt has follow up scheduled on 07/04/20 did not verify time will need to call and verify.
[2021-06-06] MEDS: 0.9% Saline Lock 10 ML Syringe IV (16:14)
[2021-06-06] MEDS: Gabapentin 100 MG Capsule PO (16:58)
[2021-06-06] MEDS: oxyCODONE 5 MG Tablet PO ×2 (16:58→22:39)
--- NOTE | 2021-06-06 18:13 | HP.PCM_ITS ---
HPI - General General Date of Admission: 06/06/21 HPI Narrative 03/30/2021 Echo EF 55%. Diastolic function indeterminate. 05/23/2021 EKG normal sinus rhythm, left anterior fascicular block, poor R wave progression. 06/05/2021 TOREY SUAREZ, is a 76 Female who presents to [facility] for surgery. 06/05/2021 Dr. Stark performed robot assisted right total knee arthroplasty. 06/06/2021 Severe right knee pain, pain medications helpful. Aspirin 81mg twice daily x 30 days for DVT prophylaxis. 06/06/2021 Admit to TCU with debility, here for rehabilitation, strengthening, prior to discharge home alone. [facility], LAT[facility] Medical History (Updated 06/06/21 @ 18:[address] Rasta Rankin MD) Ambulates with cane Arthritis Bladder disease Bruising Former smoker Gastric reflux History of echocardiogram History of hiatal hernia Leg cramps Restless legs Walker as ambulation aid Wears dentures Wears glasses Home Medications amlodipine 2.5 mg PO DAILY 08/04/19 [History Last Taken 06/05/21] calcium carbonate-vitamin D3 1 tab PO DAILY 08/04/19 [History Last Taken Unknown] cyanocobalamin (vitamin B-12) 1,000 mcg PO DAILY@0800 08/04/19 [History Last Taken Unknown] hydrochlorothiazide 25 mg PO DAILY 08/04/19 [History Last Taken Unknown] melatonin 5 mg PO QHS 08/04/19 [History Last Taken Unknown] metoprolol succinate 100 mg PO DAILY 08/04/19 [History Last Taken 06/05/21] multivitamin with minerals 1 tab PO DAILY 08/04/19 [History Last Taken Unknown] omeprazole 40 mg PO DAILY 08/04/19 [History Last Taken 06/05/21] sertraline 100 mg PO DAILY 08/04/19 [History Last Taken 06/05/21] gabapentin 100 mg PO TIDCM #90 cap 08/12/19 [Rx Last Taken 06/05/21] pramipexole 0.25 mg PO QHS PRN PRN 05/22/21 [History Last Taken Unknown] acetaminophen 1,000 mg PO Q8 06/06/21 [History Last Taken Unknown] menthol-zinc oxide 1 applic TOPICAL 0600,2200 06/06/21 [History Last Taken Unknown] Allergy/AdvReac Type Severity Reaction Status Date / Time No Known Allergies Allergy Verified 06/05/21 11:06 Surgical History (Updated 06/06/21 @ 18:[address] Rasta Rankin MD) History of back surgery History of eye surgery History of hysterectomy History of laparoscopic cholecystectomy History of repair of rectocele History of total right knee replacement History of tubal ligation Social History (Updated 06/06/21 @ 18:[address] Rasta Rankin MD) household members: none Smoking Status: Former smoker alcohol intake: never substance use type: does not use ROS Constitutional Constitutional: Denies chills, fever(s) or weight gain ENT HEENT: Denies headache(s), nasal congestion or nasal discharge Cardiovascular Cardiovascular: Denies chest pain or palpitations Respiratory/Chest Respiratory/Chest: Denies cough, excessive phlegm production or shortness of breath with exertion Gastrointestinal Gastrointestinal: Denies abdominal pain, nausea or vomiting Genitourinary Genitourinary: Denies dysuria Musculoskeletal Musculoskeletal: Denies joint pain or joint swelling Integumentary Integumentary: Denies rash or wounds Neurologic Neurologic: Denies focal weakness, numbness or tingling Psychiatric Psychiatric: Denies anxiety, auditory hallucinations, depression, homicidal ideation or suicidal ideation Vital Signs Vital Signs Vital Signs: 06/06/21 15:09 06/06/21 16:16 Temperature 98.0 F Temperature Source Oral Pulse Rate 73 Pulse Rhythm Regular Pulse Strength Normal (2+) Respiratory Rate 18 Respiratory Effort Normal Non-Labored Respiratory Depth Normal Respiratory Pattern Normal Blood Pressure 116/66 Blood Pressure Mean 82 Blood Pressure Source Monitor Blood Pressure Position Sitting Blood Pressure Location Left Arm Pulse Ox 94 Oxygen Delivery Method Nasal Cannula Nasal Cannula Oxygen Flow Rate (L/min) 2 Weight Weight: 106.231 kg Body Mass Index (BMI) 42.8 Physical Exam Const alert and oriented x3 General Appearance: cooperative HEENT normocephalic Eyes PERRL and EOMs intact bilaterally Neck supple, no JVD and no carotid bruits Resp normal respiratory effort, normal air movement and clear to auscultation bilaterally Cardio regular rate and regular rhythm GI normal to inspection, nondistended, normoactive bowel sounds, non-tender and non-distended Extremity normal capillary refill General Extremity: Negative for edema Skin no rashes or lesions noted General Skin Exam: no breakdown Psych affect normal Appearance: appropriate Assessment & Plan Assessment/Plan (1) Debility: (2) Status post total right knee replacement not using cement: (3) Lumbar radiculopathy: (4) Gastroesophageal reflux disease: (5) Depression: (6) Hypertension: PLAN: 76 year old female with below past medical history hospitalized for robot assisted right total knee arthroplasty 06/05/[address] Stark, admitted to TCU with debility, here for rehabilitation, strengthening, prior to discharge home alone. * Debility - PT/OT. * Pain - Tylenol 1000mg q8h, Tramadol 50mg q6h prn pain (1-5), Oxycodone 5mg q4h prn pain (6-10). * Bowel - Miralax 17gm daily, Senna/colace 2 tablets bid, Dulcolax 10mg daily prn. * Adult immunization - Administer prevnar 13, pneumovax 23, fluzone, covid19 vaccine as appropriate. * DVT prophylaxis - Aspirin 81mg bid thru 07/06/2021. * Hypertension - Metoprolol succinate 100mg daily, HCTZ 25mg daily, Amlodipine 2.5mg daily. * Calcium deficiency - Calcium D 1 tablet daily. * Vitamin B12 deficiency - B12 1000mcg daily. * Neuropathic pain - Gabapentin 100mg tidcm. * Insomnia - Melatonin 5mg qhs. * Skin irritation - Calmoseptine topical bid. * Nutrition - MVI daily. * GERD - Pantoprazole 40mg daily. * Restless leg syndrome - Mirapex 0.25mg qhs prn. * Depression - Sertraline 100mg daily, stable chronic parts counterman use, GDR not recommended.
[2021-06-06] MEDS: traMADol 50 MG Tablet PO (20:22)
[2021-06-06] MEDS: Senna/Docusate Sodium 1 Tablet 2 TABLET PO (20:23)
[2021-06-06] MEDS: Acetaminophen 500 MG Tablet 1000 MG PO (20:24)
[2021-06-06] MEDS: MELATONIN 10 MG TABLET 5 MG PO (20:24)
[2021-06-07] MEDS: oxyCODONE 5 MG Tablet PO ×3 (03:09→13:31)
[2021-06-07] MEDS: traMADol 50 MG Tablet PO (05:50)
[2021-06-07] MEDS: Acetaminophen 500 MG Tablet 1000 MG PO ×3 (05:50→20:50)
[2021-06-07] MEDS: Polyethylene Glycol 3350 17 GM PACKET PO (05:50)
[2021-06-07] MEDS: hydroCHLOROthiazide 25 MG Tablet PO (05:51)
[2021-06-07] MEDS: amLODIPine 2.5 MG Tablet PO (05:51)
[2021-06-07] MEDS: Sertraline 100 MG Tablet PO (05:51)
[2021-06-07] MEDS: Senna/Docusate Sodium 1 Tablet 2 TABLET PO ×2 (05:51→17:03)
[2021-06-07] MEDS: Pantoprazole Sodium 40 MG Tablet PO (05:51)
[2021-06-07 05:52] VITALS: PULSE 64
[2021-06-07] MEDS: Metoprolol(XL)Succ 100 MG Tablet PO (05:52)
[2021-06-07 05:53] VITALS: BP 115/52; PULSE 64
[2021-06-07] MEDS: 0.9% Saline Lock 10 ML Syringe IV (05:55)
[2021-06-07 06:03] LABS: Absolute Lymphocyte Count 1.29 X10^3/uL (0.83-4.51); Absolute Neutrophil Count 6.6 X10^3/uL (2.0-7.7); Basophil# 0.03 X10^3/uL; Basophil% 0.3 % (0-1); Eosinophil# 0.06 X10^3/uL; Eosinophils% 0.7 % (0-5); Hematocrit 31.6 % (37-47); Hemoglobin 10.2 g/dL (12.0-15.0); Lymphocyte # 1.29 X10^3/ul (0.83-4.51); Lymphocyte % 14.6 % (19-41); Mean Corp Hgb Conc 32.3 g/dL (32-36); Mean Corpuscular Volume 89.8 fL (81-99); Mean Platelet Vol. 8.9 fl (6.2-12.0); Monocyte# 0.84 X10^3/uL; Monocyte% 9.5 % (0-10); NRBC Flagged by Analyzer 0 % (0-5); Neutrophil # 6.55 X10^3/uL (2.7-7.7); Neutrophil % 74.3 % (47-70); Platelet Count 130 K/mm3 (150-450); RBC Distribution Width CV 13.7 % (11.6-14.6); RBC Distribution Width SD 44.9 fl (35.1-43.9); Red Blood Count 3.52 M/mm3 (4.2-5.4); White Blood Count 8.8 K/mm3 (4.4-11.0)
[2021-06-07 06:34] LABS: Anion Gap 6 (5-15); BUN 11 mg/dL (7-18); BUN/Creat Ratio 17.6 RATIO (10-20); Calcium,Total 8.9 mg/dL (8.5-10.1); Chloride 97 mmol/L (98-107); Creatinine, Serum 0.62 mg/dL (0.55-1.02); EST Glomerular Filtration Rate 99 mL/min (>60); Est Glom Filt Rate - Afr Amer 119 mL/min (>60); Estimated Creatinine Clearance 37.85 ml/min; Glucose 111 mg/dL (74-106); Potassium 3.4 mmol/L (3.5-5.1); Sodium Level 133 mmol/L (136-145)
[2021-06-07] MEDS: Multivitamins,Ther W-Minerals Tablet 1 TABLET PO (08:05)
[2021-06-07] MEDS: Aspirin 81 MG TAB.CHEW PO (08:05)
[2021-06-07] MEDS: Calcium Carb/Vitamin D 1 TABLET Tablet PO (08:05)
[2021-06-07] MEDS: Gabapentin 100 MG Capsule PO ×3 (08:06→17:03)
[2021-06-07] MEDS: Cyanocobalamin 500 MCG Tablet 1000 MCG PO (08:06)
[2021-06-07] MEDS: Potassium Chloride Oral Tablet 20 MEQ PO (09:20)
[2021-06-07] MEDS: Tuberculin,Purif.prot.deriv. 50 TU/ML Vial 0.1 ML ID (09:25)
[2021-06-07 09:57] VITALS: PULSE 65; RESP 18; O2SAT 96
--- NOTE | 2021-06-07 10:53 | CASEMGMT ---
Social Work SW met with pt and competed psychosocial assessment. SW discussed code status with pt and assisted pt in completing MOLST form. Pt wishes for DNRCCA with no intubation. MOLST form communicated to physician and placed on chart. SW explained [employer] insurance coverage and that continued stay is not gauranteed. Pt lives home alone and was independent in all care needs prior to surgery. Pt plans to return home alone at time of discharge SW will continue to follow. ASAD Montanez
[2021-06-07 13:52] VITALS: O2SAT 96
[2021-06-07 16:00] VITALS: BP 107/63; PULSE 78; RESP 17; TEMP 37.1; O2SAT 91
--- NOTE | 2021-06-07 16:24 | CHAPLAIN ---
Type of Pastoral Visit _x__ Initial Visit ___ Follow-up Visit ___ On-call Visit ___ General Patient Visit ___ Spiritual Assessment ___ Family Conference ___ Bereavement ___ Rapid Response ___ Code Blue ___ Other (describe below) Pastoral Care Referral From _x__ Patient ___ Family ___ Nurse ___ Physician ___ Relay Assembler ___ Independent Producer ___ Other (describe below) Sacrament/Intervention _x__ Active listening ___ Anointing ___ Synagogue ___ Bereavement ___ Communion _x__ Leti exploration ___ _x__ Life review _x__ Prayer ___ Reconciliation ___ Sacrament of Sick ___ Supportive presence ___ Wedding ___ Other (describe below) Pastoral Comments patient describes her reason for being admitted to TCU and reviews some of her life history; pt has long connection with [facility] but unable to attend services in last two years; pt has family for support but 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
[2021-06-07] MEDS: Magnesium Chloride 64 MG Delay Rel.Tablet 128 MG PO (17:09)
[2021-06-07] MEDS: MELATONIN 10 MG TABLET 5 MG PO (20:49)
[2021-06-08] MEDS: traMADol 50 MG Tablet PO (01:57)
--- NOTE | 2021-06-08 02:06 | NURSING ---
Patient c/o pain/restlessness of both legs. Ultram administered. Requested prn dose of mirapex dose from pharmacy. Will administer when received. Will continue to monitor.
[2021-06-08] MEDS: Pramipexole Di-HCl 0.25 MG Tablet PO ×2 (02:14→21:54)
[2021-06-08] MEDS: Polyethylene Glycol 3350 17 GM PACKET PO (05:56)
[2021-06-08] MEDS: Sertraline 100 MG Tablet PO (05:58)
[2021-06-08] MEDS: hydroCHLOROthiazide 25 MG Tablet PO (05:58)
[2021-06-08] MEDS: amLODIPine 2.5 MG Tablet PO (05:58)
[2021-06-08] MEDS: Magnesium Chloride 64 MG Delay Rel.Tablet 128 MG PO (05:58)
[2021-06-08] MEDS: Pantoprazole Sodium 40 MG Tablet PO (05:58)
[2021-06-08 05:59] VITALS: BP 106/63; PULSE 70
[2021-06-08] MEDS: Metoprolol(XL)Succ 100 MG Tablet PO (05:59)
[2021-06-08] MEDS: Acetaminophen 500 MG Tablet 1000 MG PO ×3 (06:00→21:55)
[2021-06-08] MEDS: oxyCODONE 5 MG Tablet PO ×2 (06:40→21:53)
[2021-06-08 06:55] LABS: Anion Gap 4 (5-15); BUN 12 mg/dL (7-18); BUN/Creat Ratio 21.8 RATIO (10-20); Calcium,Total 9.1 mg/dL (8.5-10.1); Chloride 99 mmol/L (98-107); Creatinine, Serum 0.55 mg/dL (0.55-1.02); EST Glomerular Filtration Rate 114 mL/min (>60); Est Glom Filt Rate - Afr Amer 138 mL/min (>60); Estimated Creatinine Clearance 37.85 ml/min; Glucose 106 mg/dL (74-106); Potassium 3.6 mmol/L (3.5-5.1); Sodium Level 133 mmol/L (136-145)
[2021-06-08] MEDS: Menthol/Lanolin/Calamine/Znox 113 GM Tube 1 APPLIC TOPICAL ×2 (07:30→22:02)
[2021-06-08] MEDS: Calcium Carb/Vitamin D 1 TABLET Tablet PO (08:15)
[2021-06-08] MEDS: Gabapentin 100 MG Capsule PO ×3 (08:15→17:32)
[2021-06-08] MEDS: Aspirin 81 MG TAB.CHEW PO (08:15)
[2021-06-08] MEDS: Cyanocobalamin 500 MCG Tablet 1000 MCG PO (08:15)
[2021-06-08] MEDS: Multivitamins,Ther W-Minerals Tablet 1 TABLET PO (08:15)
[2021-06-08 13:39] VITALS: BP 116/58; PULSE 67; RESP 16; TEMP 36.5; O2SAT 93
[2021-06-08 13:45] VITALS: O2SAT 92
[2021-06-08] MEDS: MELATONIN 10 MG TABLET 5 MG PO (21:55)
--- NOTE | 2021-06-08 22:55 | NURSING ---
Patient having muscle spasms to right thigh. PRN oxycodone and Mirapex ineffective. Notified Dr. Rankin. New order received for 1x dose of baclofen 10mg.
[2021-06-09 00:05] VITALS: PULSE 79; RESP 18; O2SAT 91
[2021-06-09] MEDS: Acetaminophen 500 MG Tablet 1000 MG PO ×3 (05:38→19:51)
[2021-06-09 05:39] VITALS: BP 127/70; PULSE 66
[2021-06-09] MEDS: hydroCHLOROthiazide 25 MG Tablet PO (05:39)
[2021-06-09] MEDS: Pantoprazole Sodium 40 MG Tablet PO (05:39)
[2021-06-09] MEDS: Metoprolol(XL)Succ 100 MG Tablet PO (05:39)
[2021-06-09] MEDS: Magnesium Chloride 64 MG Delay Rel.Tablet 128 MG PO (05:39)
[2021-06-09] MEDS: Sertraline 100 MG Tablet PO (05:39)
[2021-06-09] MEDS: amLODIPine 2.5 MG Tablet PO (05:39)
[2021-06-09] MEDS: Menthol/Lanolin/Calamine/Znox 113 GM Tube 1 APPLIC TOPICAL ×2 (05:43→19:50)
[2021-06-09 07:34] VITALS: O2SAT 91
[2021-06-09] MEDS: Aspirin 81 MG TAB.CHEW PO (08:25)
[2021-06-09] MEDS: Cyanocobalamin 500 MCG Tablet 1000 MCG PO (08:25)
[2021-06-09] MEDS: Gabapentin 100 MG Capsule PO ×3 (08:25→17:08)
[2021-06-09] MEDS: Multivitamins,Ther W-Minerals Tablet 1 TABLET PO (08:25)
[2021-06-09] MEDS: Calcium Carb/Vitamin D 1 TABLET Tablet PO (08:25)
[2021-06-09 10:00] VITALS: O2SAT 92
[2021-06-09] MEDS: oxyCODONE 5 MG Tablet PO ×2 (10:35→19:47)
[2021-06-09 14:44] VITALS: BP 101/75; PULSE 70; RESP 16; TEMP 36.2; O2SAT 92
[2021-06-09] MEDS: Pramipexole Di-HCl 0.25 MG Tablet PO (19:49)
[2021-06-09] MEDS: MELATONIN 10 MG TABLET 5 MG PO (19:50)
[2021-06-09] MEDS: Baclofen 10 MG Tablet PO (19:55)
[2021-06-10 04:40] VITALS: BP 150/88; PULSE 83
[2021-06-10] MEDS: Pantoprazole Sodium 40 MG Tablet PO (04:40)
[2021-06-10] MEDS: Metoprolol(XL)Succ 100 MG Tablet PO (04:40)
[2021-06-10] MEDS: hydroCHLOROthiazide 25 MG Tablet PO (04:40)
[2021-06-10] MEDS: amLODIPine 2.5 MG Tablet PO (04:40)
[2021-06-10] MEDS: Senna/Docusate Sodium 1 Tablet 2 TABLET PO ×2 (04:41→17:09)
[2021-06-10] MEDS: Magnesium Chloride 64 MG Delay Rel.Tablet 128 MG PO (04:41)
[2021-06-10] MEDS: Sertraline 100 MG Tablet PO (04:41)
[2021-06-10] MEDS: Menthol/Lanolin/Calamine/Znox 113 GM Tube 1 APPLIC TOPICAL (04:42)
[2021-06-10] MEDS: Acetaminophen 500 MG Tablet 1000 MG PO ×3 (04:44→22:35)
[2021-06-10] MEDS: Multivitamins,Ther W-Minerals Tablet 1 TABLET PO (08:30)
[2021-06-10] MEDS: Calcium Carb/Vitamin D 1 TABLET Tablet PO (08:30)
[2021-06-10] MEDS: Aspirin 81 MG TAB.CHEW PO (08:30)
[2021-06-10] MEDS: Gabapentin 100 MG Capsule PO (08:30)
[2021-06-10] MEDS: oxyCODONE 5 MG Tablet PO ×3 (08:34→22:40)
[2021-06-10] MEDS: Cyanocobalamin 500 MCG Tablet 1000 MCG PO (08:36)
--- NOTE | 2021-06-10 08:41 | NURSING ---
dr seay updated pt requesting that neurontin be increased and that she have muscle spasm medication PRN. pt had received a dose of baclofen yesterday and it was helpful. new orders received.
[2021-06-10] MEDS: Baclofen 10 MG Tablet PO ×2 (09:25→22:41)
[2021-06-10] MEDS: Gabapentin 300 MG Capsule PO ×2 (12:06→17:08)
[2021-06-10 15:41] VITALS: BP 125/79; PULSE 77; RESP 16; TEMP 37.2; O2SAT 91
--- NOTE | 2021-06-10 17:17 | NURSING ---
Informed patient 2 employees and 1 patient positive for Covid, pt will call dtr to inform for visitation update
[2021-06-10] MEDS: traMADol 50 MG Tablet PO (17:50)
[2021-06-10 21:15] VITALS: RESP 16
[2021-06-10] MEDS: MELATONIN 10 MG TABLET 5 MG PO (22:35)
[2021-06-11 04:31] VITALS: BP 123/76; PULSE 67
[2021-06-11] MEDS: oxyCODONE 5 MG Tablet PO ×3 (04:34→21:11)
[2021-06-11] MEDS: Senna/Docusate Sodium 1 Tablet 2 TABLET PO ×2 (04:34→17:07)
[2021-06-11] MEDS: Polyethylene Glycol 3350 17 GM PACKET PO (04:34)
[2021-06-11 04:35] VITALS: PULSE 67
[2021-06-11] MEDS: Pantoprazole Sodium 40 MG Tablet PO (04:35)
[2021-06-11] MEDS: Acetaminophen 500 MG Tablet 1000 MG PO ×3 (04:35→21:11)
[2021-06-11] MEDS: Metoprolol(XL)Succ 100 MG Tablet PO (04:35)
[2021-06-11] MEDS: amLODIPine 2.5 MG Tablet PO (04:35)
[2021-06-11] MEDS: hydroCHLOROthiazide 25 MG Tablet PO (04:35)
[2021-06-11] MEDS: Magnesium Chloride 64 MG Delay Rel.Tablet 128 MG PO (04:35)
[2021-06-11] MEDS: Sertraline 100 MG Tablet PO (04:37)
[2021-06-11 06:36] VITALS: O2SAT 97
[2021-06-11] MEDS: Gabapentin 300 MG Capsule PO ×3 (07:34→17:08)
[2021-06-11] MEDS: Multivitamins,Ther W-Minerals Tablet 1 TABLET PO (07:35)
[2021-06-11] MEDS: Cyanocobalamin 500 MCG Tablet 1000 MCG PO (07:36)
[2021-06-11] MEDS: Aspirin 81 MG TAB.CHEW PO (07:36)
[2021-06-11] MEDS: Calcium Carb/Vitamin D 1 TABLET Tablet PO (07:37)
--- NOTE | 2021-06-11 11:53 | NURSING ---
Updated pt on positive staff member pt will update family per pt.
[2021-06-11] MEDS: Baclofen 10 MG Tablet PO ×2 (12:54→21:11)
[2021-06-11 15:39] VITALS: BP 105/57; PULSE 65; RESP 18; TEMP 36.2; O2SAT 95
[2021-06-11] MEDS: MELATONIN 10 MG TABLET 5 MG PO (21:13)
[2021-06-12] MEDS: oxyCODONE 5 MG Tablet PO ×5 (02:24→21:37)
[2021-06-12] MEDS: Baclofen 10 MG Tablet PO ×3 (02:35→20:30)
[2021-06-12] MEDS: Polyethylene Glycol 3350 17 GM PACKET PO (05:46)
[2021-06-12] MEDS: Magnesium Chloride 64 MG Delay Rel.Tablet 128 MG PO (05:47)
[2021-06-12] MEDS: Acetaminophen 500 MG Tablet 1000 MG PO ×3 (05:47→20:22)
[2021-06-12] MEDS: hydroCHLOROthiazide 25 MG Tablet PO (05:48)
[2021-06-12] MEDS: Pantoprazole Sodium 40 MG Tablet PO (05:48)
[2021-06-12] MEDS: Sertraline 100 MG Tablet PO (05:48)
[2021-06-12] MEDS: Gabapentin 300 MG Capsule PO ×3 (05:50→17:06)
--- NOTE | 2021-06-12 05:59 | NURSING ---
metoprolol and Norvasc held at this time d/t BP of 99/76. Will report to oncoming nurse.
[2021-06-12 06:00] VITALS: BP 99/76; PULSE 73
[2021-06-12] MEDS: Multivitamins,Ther W-Minerals Tablet 1 TABLET PO (08:01)
[2021-06-12] MEDS: Aspirin 81 MG TAB.CHEW PO (08:01)
[2021-06-12] MEDS: Calcium Carb/Vitamin D 1 TABLET Tablet PO (08:01)
[2021-06-12] MEDS: Cyanocobalamin 500 MCG Tablet 1000 MCG PO (08:01)
[2021-06-12 08:02] VITALS: BP 94/60; PULSE 74
--- NOTE | 2021-06-12 09:59 | RAD_ITS ---
STUDY: X-RAY - RIGHT KNEE REASON FOR EXAM: Increased right knee pain after right total knee arthroplasty. TECHNIQUE: 4 view(s) of the knee. COMPARISON: Radiographs 06/05/2021. FINDINGS: There is a right total knee arthroplasty without abnormality of alignment or evidence of periprosthetic fracture. There is soft tissue swelling and overlying skin ariana. RAD/Knee 4 or More Views IMPRESSION: Soft tissue swelling status post recent right total knee arthroplasty. Otherwise, unremarkable right total knee arthroplasty. Electronically Signed: Jason Handley MD at 11:10 EST Tel , Service support ,
--- NOTE | 2021-06-12 09:59 | NURSING ---
PT WITH INCREASED PAIN IN RT KNEE TODAY, EDEMA NOTED, INCISION W/REINA, NO REDNESS NOTED. DR GREER NOTIFIED, NEW ORDER FOR XRAY. PT STATES SHE MAY HAVE DONE SOMETHING WHEN SHE WAS DOING EXERCISES YESTERDAY ON OWN.
--- NOTE | 2021-06-12 14:12 | PCM.PN.RX ---
Progress Note - Pharmacy Subjective: TCU Admission Objective: Allergies No Known Allergies Allergy (Verified 06/05/21 11:06) Current Medications Generic Name Dose Route Start Last Admin Trade Name Cherelle PRN Reason Stop Dose Admin Acetaminophen 1,000 mg 06/06/21 22:00 06/12/21 14:08 Acetaminophen 500 Mg Tablet PO 1,000 mg Q8 JOSE Administration Amlodipine Besylate 2.5 mg 06/07/21 06:00 06/12/21 08:02 Amlodipine 2.5 Mg Tablet PO Not Given DAILY JOSE Aspirin 81 mg 06/07/21 08:00 06/12/21 08:01 Aspirin 81 Mg Tab.Chew PO 07/06/21 08:01 81 mg BREAKFAST JOSE Administration Baclofen 10 mg 06/10/21 08:39 06/12/21 07:55 Baclofen 10 Mg Tablet PO 10 mg TID PRN Administration muscle spasms Bisacodyl 10 mg 06/06/21 18:27 Bisacodyl 5 Mg Tablet PO DAILY PRN Constipation Calcium/Vitamin D 1 tablet 06/07/21 08:00 06/12/21 08:01 Calcium Carb/Vitamin D 1 Tablet Tablet PO 1 tablet BREAKFAST JOSE Administration Cyanocobalamin 1,000 mcg 06/07/21 08:00 06/12/21 08:01 Cyanocobalamin 500 Mcg Tablet PO 1,000 mcg DAILY@0800 JOSE Administration Gabapentin 300 mg 06/10/21 12:45 06/12/21 12:14 Gabapentin 300 Mg Capsule PO 300 mg TIDCM JOSE Administration Hydrochlorothiazide 25 mg 06/07/21 06:00 06/12/21 05:48 Hydrochlorothiazide 25 Mg Tablet PO 25 mg DAILY JOSE Administration Magnesium Chloride 128 mg 06/07/21 17:00 06/12/21 05:47 Magnesium Chloride 64 Mg Delay Rel.Tablet PO 128 mg DAILY JOSE Administration Melatonin 5 mg 06/06/21 22:00 06/11/21 21:13 Melatonin 10 Mg Tablet PO 5 mg QHS JOSE Administration Metoprolol Succinate 100 mg 06/07/21 06:00 06/12/21 08:02 Metoprolol(Xl)Succ 100 Mg Tablet PO Not Given DAILY JOSE Multivitamins/Minerals 1 tablet 06/07/21 08:00 06/12/21 08:01 Multivitamins,Ther W-Minerals Tablet PO 1 tablet BREAKFAST [facility] Administration Oxycodone HCl 5 mg 06/06/21 16:44 06/12/21 12:11 Oxycodone 5 Mg Tablet PO 5 mg Q4H PRN PRN Administration Pain Score 6-10 Pantoprazole Sodium 40 mg 06/07/21 06:00 06/12/21 05:48 Pantoprazole Sodium 40 Mg Tablet PO 40 mg DAILY JOSE Administration Polyethylene Glycol 17 gm 06/07/21 06:00 06/12/21 05:46 Polyethylene Glycol 3350 17 Gm Packet PO 17 gm DAILY JOSE Administration Pramipexole Dihydrochloride 0.25 mg 06/06/21 15:25 06/09/21 19:49 Pramipexole Di-Hcl 0.25 Mg Tablet PO 0.25 mg QHS PRN PRN Administration RESTLESS LEGS Senna/Docusate Sodium 2 tablet 06/06/21 18:30 06/12/21 05:48 Senna/Docusate Sodium 1 Tablet PO Not Given BID JOSE Sertraline HCl 100 mg 06/07/21 06:00 06/12/21 05:48 Sertraline 100 Mg Tablet PO 100 mg DAILY JOSE Administration Sodium Chloride 10 - 40 ml 06/06/21 15:55 06/07/21 05:55 0.9% Saline Lock 10 Ml Syringe IV 10 ml UD PRN Administration SALINE FLUSH Tramadol HCl 50 mg 06/06/21 16:44 06/10/21 17:50 Tramadol 50 Mg Tablet PO 50 mg Q6H PRN PRN Administration Pain Score 1-5 Tuberculin PPD 0.1 ml 06/14/21 10:00 Tuberculin,Purif.Prot.Deriv. 50 Tu/Ml Vial ID 06/14/21 10:01 X1 ONE Problem List (Last Reviewed 06/06/21 @ 18:[address] Rasta Rankin MD) Hypertension (Chronic) Debility (Acute) Status post total right knee replacement not using cement (Acute) Depression (Chronic) Gastroesophageal reflux disease (Chronic) Lumbar radiculopathy (Chronic) Vital Signs Temp Pulse Resp BP Pulse Ox 97.1 F L 74 18 94/60 95 06/11/21 15:39 06/12/21 08:02 06/11/21 15:39 06/12/21 08:02 06/11/21 15:39 Oxygen Flow Rate (L/min) 1 Oxygen Delivery Method Room Air Weight: 106.231 kg Body Mass Index (BMI) 42.8 Sodium 133 mmol/L (136-145) L 06/08/21 05:18 Potassium 3.6 mmol/L (3.5-5.1) 06/08/21 05:18 Chloride 99 mmol/L (98-107) 06/08/21 05:18 Carbon Dioxide 30.0 mmol/L (21.0-32.0) 06/08/21 05:18 Anion Gap 4 (5-15) L 06/08/21 05:18 BUN 12 mg/dL (7-18) 06/08/21 05:18 Creatinine 0.55 mg/dL (0.55-1.02) 06/08/21 05:18 Est GFR (MDRD) Af Amer 138 mL/min (>60) 06/08/21 05:18 Est GFR (MDRD) Non-Af 114 mL/min (>60) 06/08/21 05:18 BUN/Creatinine Ratio 21.8 RATIO (10-20) H 06/08/21 05:18 Glucose 106 mg/dL (74-106) 06/08/21 05:18 Assessment/Plan: 1. Pain: acetaminophen 1000mg PO Q8H, tramadol 50mg PO Q6H PRN pain 1-5/10 and oxycodone 5mg PO Q4H PRN pain 6-10/10. Please continue to monitor for increased pain, PRN usage, constipation and respiratory depression. *2. DVT prophylaxis: aspirin 81mg PO breakfast thru 07/06/21. Aspirin is only entered for once daily. Please consider increasing to BID for ortho DVT prophylaxis. Thanks. Please continue to monitor for S/S of bleeding and hemoglobin (last 10.2g/dL). 3. Hypertension: metoprolol succinate 100mg PO daily, hydrochlorothiazide 25mg PO daily and amlodipine 2.5mg PO daily. Please continue to monitor HR (last 74), BP (last 94/60), potassium (last 3.6mmol/L), sodium (last 133mmol/L) and renal function. 4. Neuropathic pain: gabapentin 300mg PO TIDCM. Please continue to monitor for increased pain, renal function and confusion. 5. GERD: pantoprazole 40mg PO daily. Please continue to monitor for S/S of GERD and diarrhea. 6. Restless leg syndrome: pramipexole 0.25mg PO QHS PRN restless legs. Please continue to monitor for S/S of restless legs and PRN usage. 7. Insomnia: melatonin 5mg PO QHS. Please continue to monitor for excessive drowsiness. 8. Muscle spasms: baclofen 10mg PO TID PRN muscle spasms. Please continue to monitor for muscle spasms and PRN usage. *9. Calcium/vitamin D/vitamin B12/magnesium deficiency/overall nutrition: calcium/vitamin D 1T PO breakfast, cyanocobalamin 1000mcg PO DAILYCM, magnesium chloride 128mg PO daily and multivitamin with minerals 1T PO breakfast. Patient does not have vitamin D or vitamin B12 levels in the chart. Please consider ordering levels. Thanks. Please continue to monitor calcium levels (last 9.1mg/dL) and magnesium levels (last 2..2mg/dL). Psychotropic Medications: 1. Depression: sertraline 100mg PO daily. Please see physician note regarding GDR. Unnecessary Medications: None Bowel Regimen: Miralax 17gm PO daily, senna/docusate 2T PO BID and bisacodyl 10mg PO daily PRN constipation. Please continue to monitor for S/S of constipation and PRN usage. Date of Note:: 06/12/21
[2021-06-12 14:39] VITALS: BP 144/81; PULSE 68; RESP 16; TEMP 36.7; O2SAT 96
[2021-06-12] MEDS: Senna/Docusate Sodium 1 Tablet 2 TABLET PO (17:06)
[2021-06-12] MEDS: Pramipexole Di-HCl 0.25 MG Tablet PO (20:21)
[2021-06-12] MEDS: MELATONIN 10 MG TABLET 5 MG PO (20:22)
[2021-06-12 23:00] VITALS: PULSE 78; RESP 14
[2021-06-13] MEDS: oxyCODONE 5 MG Tablet PO ×5 (02:23→23:03)
[2021-06-13] MEDS: Pantoprazole Sodium 40 MG Tablet PO (05:12)
[2021-06-13] MEDS: Acetaminophen 500 MG Tablet 1000 MG PO ×3 (05:12→21:36)
[2021-06-13] MEDS: Sertraline 100 MG Tablet PO (05:12)
[2021-06-13] MEDS: Magnesium Chloride 64 MG Delay Rel.Tablet 128 MG PO (05:12)
[2021-06-13] MEDS: Senna/Docusate Sodium 1 Tablet 2 TABLET PO ×2 (05:12→17:58)
[2021-06-13] MEDS: amLODIPine 2.5 MG Tablet PO (05:13)
[2021-06-13] MEDS: hydroCHLOROthiazide 25 MG Tablet PO (05:13)
[2021-06-13 05:14] VITALS: BP 106/49; PULSE 83
[2021-06-13] MEDS: Calcium Carb/Vitamin D 1 TABLET Tablet PO (08:21)
[2021-06-13] MEDS: Gabapentin 300 MG Capsule PO ×3 (08:21→17:58)
[2021-06-13] MEDS: Aspirin 81 MG TAB.CHEW PO (08:21)
[2021-06-13] MEDS: Multivitamins,Ther W-Minerals Tablet 1 TABLET PO (08:22)
[2021-06-13] MEDS: Cyanocobalamin 500 MCG Tablet 1000 MCG PO (08:22)
[2021-06-13 12:55] VITALS: BP 129/70; PULSE 76; RESP 14; TEMP 36.6; O2SAT 90
[2021-06-13] MEDS: Baclofen 10 MG Tablet PO (21:36)
[2021-06-13] MEDS: MELATONIN 10 MG TABLET 5 MG PO (21:37)
[2021-06-14] MEDS: traMADol 50 MG Tablet PO (00:01)
[2021-06-14] MEDS: Pramipexole Di-HCl 0.25 MG Tablet PO ×2 (00:21→18:47)
[2021-06-14 05:53] LABS: Absolute Lymphocyte Count 1.02 X10^3/uL (0.83-4.51); Absolute Neutrophil Count 3.4 X10^3/uL (2.0-7.7); Basophil# 0.04 X10^3/uL; Basophil% 0.7 % (0-1); Eosinophil# 0.18 X10^3/uL; Eosinophils% 3.3 % (0-5); Hematocrit 31.6 % (37-47); Hemoglobin 10.1 g/dL (12.0-15.0); Lymphocyte # 1.02 X10^3/ul (0.83-4.51); Lymphocyte % 18.9 % (19-41); Mean Corpuscular Hgb 28.9 pg (27.0-32.0); Mean Corpuscular Volume 90.5 fL (81-99); Mean Platelet Vol. 8.3 fl (6.2-12.0); Monocyte# 0.64 X10^3/uL; Monocyte% 11.9 % (0-10); NRBC Flagged by Analyzer 0 % (0-5); Neutrophil # 3.44 X10^3/uL (2.7-7.7); Neutrophil % 63.7 % (47-70); Platelet Count 220 K/mm3 (150-450); RBC Distribution Width CV 14.1 % (11.6-14.6); RBC Distribution Width SD 46.6 fl (35.1-43.9); Red Blood Count 3.49 M/mm3 (4.2-5.4); White Blood Count 5.4 K/mm3 (4.4-11.0)
[2021-06-14 06:12] LABS: Anion Gap 7 (5-15); BUN 10 mg/dL (7-18); BUN/Creat Ratio 16.5 RATIO (10-20); Calcium,Total 9.4 mg/dL (8.5-10.1); Chloride 98 mmol/L (98-107); Creatinine, Serum 0.61 mg/dL (0.55-1.02); EST Glomerular Filtration Rate 102 mL/min (>60); Est Glom Filt Rate - Afr Amer 123 mL/min (>60); Estimated Creatinine Clearance 37.85 ml/min; Glucose 94 mg/dL (74-106); Potassium 4.1 mmol/L (3.5-5.1); Sodium Level 136 mmol/L (136-145)
[2021-06-14 06:30] VITALS: BP 144/81; PULSE 87
[2021-06-14] MEDS: hydroCHLOROthiazide 25 MG Tablet PO (06:30)
[2021-06-14] MEDS: Metoprolol(XL)Succ 100 MG Tablet PO (06:30)
[2021-06-14] MEDS: Acetaminophen 500 MG Tablet 1000 MG PO ×3 (06:30→20:23)
[2021-06-14] MEDS: Sertraline 100 MG Tablet PO (06:30)
[2021-06-14] MEDS: amLODIPine 2.5 MG Tablet PO (06:30)
[2021-06-14] MEDS: Senna/Docusate Sodium 1 Tablet 2 TABLET PO ×2 (06:31→17:39)
[2021-06-14] MEDS: Pantoprazole Sodium 40 MG Tablet PO (06:31)
[2021-06-14] MEDS: Magnesium Chloride 64 MG Delay Rel.Tablet 128 MG PO (06:31)
[2021-06-14] MEDS: Polyethylene Glycol 3350 17 GM PACKET PO (06:31)
[2021-06-14] MEDS: oxyCODONE 5 MG Tablet PO ×3 (06:37→20:25)
[2021-06-14] MEDS: Baclofen 10 MG Tablet PO ×2 (06:37→18:47)
[2021-06-14] MEDS: Multivitamins,Ther W-Minerals Tablet 1 TABLET PO (08:08)
[2021-06-14] MEDS: Gabapentin 300 MG Capsule PO ×3 (08:08→17:39)
[2021-06-14] MEDS: Cyanocobalamin 500 MCG Tablet 1000 MCG PO (08:08)
[2021-06-14] MEDS: Aspirin 81 MG TAB.CHEW PO (08:08)
[2021-06-14] MEDS: Calcium Carb/Vitamin D 1 TABLET Tablet PO (08:08)
--- NOTE | 2021-06-14 11:43 | CASEMGMT ---
Social Work Plan of care meeting held today with pt in attendance and dgt on Conference call. Pt is receiving PT/OT and progressing with therapy. Pain is a limiting factor in pt progress. SW informed pt and dgt that insurance update is due on 06/16 and insurance indicates that NOMNC will be issued at that time. SW explained that pt could be discharged as early as Saturday, depending on insurance response. Pt plans to return home alone at time of discharge and would like to continue with outpatient therapy at [facility]. stating family can provide transportation to appointments. Pt will be home alone upon discharge as family work and are unable to assist pt. Continue with care plan at this time. SW to follow for d/c planning. ASAD Sosa
[2021-06-14] MEDS: Tuberculin,Purif.prot.deriv. 50 TU/ML Vial 0.1 ML ID (11:50)
[2021-06-14 14:32] VITALS: BP 129/69; PULSE 76; RESP 16; TEMP 36.8; O2SAT 91
--- NOTE | 2021-06-14 14:46 | NURSING ---
Resident and daughter, , notified of 3 staff members testing positive for COVID.
--- NOTE | 2021-06-14 18:36 | PCA ---
PRODUCTION LINE ASSEMBLER offered to help patient with HS care and get washed up for bed. Patient stated that they washed real good in the morning and did not find it necessary to wash a second time. Patient wished to sleep in the clothes they were wearing stating that they are running low on options as family will have to bring more night clothes. Offered hospital gown and they refused.
[2021-06-14 20:13] VITALS: PULSE 78; RESP 16; O2SAT 93
[2021-06-14] MEDS: MELATONIN 10 MG TABLET 5 MG PO (20:22)
[2021-06-15] MEDS: oxyCODONE 5 MG Tablet PO ×4 (03:04→20:12)
[2021-06-15 05:53] VITALS: BP 116/80; PULSE 83
[2021-06-15] MEDS: Polyethylene Glycol 3350 17 GM PACKET PO (05:56)
[2021-06-15] MEDS: traMADol 50 MG Tablet PO (05:56)
[2021-06-15] MEDS: Senna/Docusate Sodium 1 Tablet 2 TABLET PO (05:57)
[2021-06-15] MEDS: amLODIPine 2.5 MG Tablet PO (05:57)
[2021-06-15] MEDS: Magnesium Chloride 64 MG Delay Rel.Tablet 128 MG PO (05:57)
[2021-06-15] MEDS: Acetaminophen 500 MG Tablet 1000 MG PO ×3 (05:57→20:12)
[2021-06-15] MEDS: hydroCHLOROthiazide 25 MG Tablet PO (05:57)
[2021-06-15] MEDS: Pantoprazole Sodium 40 MG Tablet PO (05:57)
[2021-06-15 05:58] VITALS: PULSE 83
[2021-06-15] MEDS: Metoprolol(XL)Succ 100 MG Tablet PO (05:58)
[2021-06-15] MEDS: Sertraline 100 MG Tablet PO (05:58)
[2021-06-15] MEDS: Nystatin Powder 15gm Bottle 1 APPLIC TOPICAL ×2 (06:02→18:07)
[2021-06-15] MEDS: Aspirin 81 MG TAB.CHEW PO (08:08)
[2021-06-15] MEDS: Cyanocobalamin 500 MCG Tablet 1000 MCG PO (08:08)
[2021-06-15] MEDS: Multivitamins,Ther W-Minerals Tablet 1 TABLET PO (08:08)
[2021-06-15] MEDS: Gabapentin 300 MG Capsule PO ×3 (08:08→18:06)
[2021-06-15] MEDS: Calcium Carb/Vitamin D 1 TABLET Tablet PO (08:08)
[2021-06-15 15:49] VITALS: BP 120/74; PULSE 73; RESP 18; TEMP 37.1; O2SAT 92
[2021-06-15] MEDS: Baclofen 10 MG Tablet PO (20:12)
[2021-06-15] MEDS: Pramipexole Di-HCl 0.25 MG Tablet PO (20:12)
[2021-06-15] MEDS: MELATONIN 10 MG TABLET 5 MG PO (20:13)
[2021-06-16 05:35] VITALS: BP 117/77; PULSE 75
[2021-06-16] MEDS: hydroCHLOROthiazide 25 MG Tablet PO (05:36)
[2021-06-16] MEDS: oxyCODONE 5 MG Tablet PO ×4 (05:36→21:13)
[2021-06-16 05:37] VITALS: PULSE 75
[2021-06-16] MEDS: Sertraline 100 MG Tablet PO (05:37)
[2021-06-16] MEDS: Acetaminophen 500 MG Tablet 1000 MG PO ×3 (05:37→21:17)
[2021-06-16] MEDS: Pantoprazole Sodium 40 MG Tablet PO (05:37)
[2021-06-16] MEDS: Metoprolol(XL)Succ 100 MG Tablet PO (05:37)
[2021-06-16] MEDS: Magnesium Chloride 64 MG Delay Rel.Tablet 128 MG PO (05:37)
[2021-06-16] MEDS: amLODIPine 2.5 MG Tablet PO (05:37)
[2021-06-16] MEDS: Nystatin Powder 15gm Bottle 1 APPLIC TOPICAL ×2 (05:39→18:00)
[2021-06-16] MEDS: Cyanocobalamin 500 MCG Tablet 1000 MCG PO (08:22)
[2021-06-16] MEDS: Calcium Carb/Vitamin D 1 TABLET Tablet PO (08:22)
[2021-06-16] MEDS: Multivitamins,Ther W-Minerals Tablet 1 TABLET PO (08:22)
[2021-06-16] MEDS: Aspirin 81 MG TAB.CHEW PO (08:22)
[2021-06-16] MEDS: Gabapentin 300 MG Capsule PO ×3 (08:22→17:59)
--- NOTE | 2021-06-16 11:57 | CASEMGMT ---
Social Work Insurance issued LCD 06/18, DC 06/19. Spoke with pt and dtr. Pt now requesting to start with [facility] then transition to [facility] outpatient. Requesting PT/OT. No DME needs. Dtr to transport home. Referral made to [facility] PT/OT. Plan : DC home alone with dtr support 06/19, [facility] PT/OT DEVANG WebbW
--- NOTE | 2021-06-16 12:46 | NURSING ---
Resident and daughter, , notofoed of a resident testing positive for COVID on the unit.
--- NOTE | 2021-06-16 14:07 | DS.PCM_ITS ---
Providers Date of Admission: 06/06/21 Primary Care Physician: Dr. Cheryl Russell DO Reason For Visit: LEFT TKR W/ MOIRA Diagnosis Discharge Diagnosis (1) Debility: Status: Acute Code(s): R53.81 - Other malaise (2) Status post total right knee replacement not using cement: Status: Acute Code(s): Z96.651 - Presence of right artificial knee joint (3) Lumbar radiculopathy: Status: Chronic Code(s): M54.16 - Radiculopathy, lumbar region (4) Gastroesophageal reflux disease: Status: Chronic Code(s): K21.9 - Gastro-esophageal reflux disease without esophagitis (5) Depression: Status: Chronic Code(s): F32.9 - Major depressive disorder, single episode, unspecified (6) Hypertension: Status: Chronic Code(s): I10 - Essential (primary) hypertension Medications at Discharge Home Medications amlodipine 2.5 mg PO DAILY 08/04/19 calcium carbonate-vitamin D3 1 tab PO DAILY 08/04/19 cyanocobalamin (vitamin B-12) 1,000 mcg PO DAILY@0800 08/04/19 hydrochlorothiazide 25 mg PO DAILY 08/04/19 melatonin 5 mg PO QHS 08/04/19 metoprolol succinate 100 mg PO DAILY 08/04/19 multivitamin with minerals 1 tab PO DAILY 08/04/19 omeprazole 40 mg PO DAILY 08/04/19 sertraline 100 mg PO DAILY 08/04/19 acetaminophen 1,000 mg PO Q8 06/06/21 aspirin 81 mg PO BIDCM 17 Days #0 tab 06/16/21 baclofen 10 mg PO 1900 30 Days #30 tab 06/16/21 gabapentin 300 mg PO TIDCM 30 Days #90 cap 06/16/21 magnesium chloride [Mag 64] 128 mg PO DAILY 30 Days #60 tab 06/16/21 oxycodone 5 mg PO Q4H PRN PRN 7 Days #42 tab 06/16/21 polyethylene glycol 3350 17 g PO DAILY 30 Days #30 ea 06/16/21 pramipexole 0.25 mg PO 1900 30 Days #30 tab 06/16/21 sennosides-docusate sodium [Stool Softener-Stimulant Laxat] 2 tab PO BID 30 Days #120 tab 06/16/21 tramadol 50 mg PO Q6H PRN PRN 7 Days #28 tab 06/16/21 Hospital Course Operations total knee replacement (Right total knee replacememt.) Procedures None Summary of Care Provided Minutes Spent on Discharge: 35 Hospital Course: 76 year old female with below past medical history hospitalized for robot assisted right total knee arthroplasty 06/05/[address] Stark, admitted to TCU with debility, here for rehabilitation, strengthening, prior to discharge home alone. Discharge home alone with daughter support 06/19/2021, [facility] Care PT/OT. Weight / BMI Weight Weight: 105.914 kg Body Mass Index (BMI) 42.8 ABG / Lab / Microbiology Data Result Diagrams: 06/14/21 05:30 06/14/21 05:30 Microbiology: Microbiology 06/15/21 10:47 Nasal Secretion SARS-CoV-2 Antigen (Rapid) - Final D/C Instructions Discharge Diet: No restrictions Discharge Activity: Return to Normal Activity, May Shower and Use Walker Weight Bearing Status: Weight bearing as tolerated Call your doctor if you observe: Fever of 101 or Higher, Inability to urinate, Inability to have a bowel movement, Shortness of breath, Dizziness, Fainting spells, Swelling in the ankles, Chest pain and Uncontrolled pain Additional Instructions: Discharge home alone with daughter support 06/19/2021, [facility] Care PT/OT. Please Follow Up With: Cheryl Russell DO When: 1 week. Meaningful Use Info Meaningful Use Diagnoses (Choose all that apply): None applicable Discharge Plan Admission Admit Date/Time: 06/06/21 15:06 Primary Reason for Your Visit: Debility. Attending Provider: Rasta Rankin Chi Primary Care Provider: Cheryl Russell Instructions Additional Instructions / Restrictions: Discharge home alone with daughter support 06/19/2021, [facility] Care PT/OT. Discharge Orders/Prescriptions Prescriptions: New polyethylene glycol 3350 17 gram Powder In Packet 17 g PO DAILY 30 Days Qty: 30 RF: 0 sennosides-docusate sodium [Stool Softener-Stimulant Laxat] 8.6-50 mg Tablet 2 tab PO BID 30 Days Qty: 120 RF: 0 tramadol 50 mg Tablet 50 mg PO Q6H PRN PRN (Reason: Pain Score 1-5) 7 Days Qty: 28 RF: 0 baclofen 10 mg Tablet 10 mg PO 1900 30 Days Qty: 30 RF: 0 pramipexole 0.25 mg Tablet 0.25 mg PO 1900 30 Days Qty: 30 RF: 0 gabapentin 300 mg Capsule 300 mg PO TIDCM 30 Days Qty: 90 RF: 0 aspirin 81 mg Tablet,Chewable 81 mg PO BIDCM 17 Days Qty: 0 RF: 0 oxycodone 5 mg Tablet 5 mg PO Q4H PRN PRN (Reason: Pain Score 6-10) 7 Days Qty: 42 RF: 0 Mag 64 64 mg Tablet,Delayed Release (Dr/Ec) 128 mg PO DAILY 30 Days Qty: 60 RF: 0 Continued metoprolol succinate 100 MG tablet extended release 24 hr 100 mg PO DAILY RF: 0 sertraline 100 MG tablet 100 mg PO DAILY RF: 0 amlodipine 2.5 MG tablet 2.5 mg PO DAILY RF: 0 omeprazole 40 MG capsule,delayed release(DR/EC) 40 mg PO DAILY RF: 0 cyanocobalamin (vitamin B-12) 500 MCG tablet 1,000 mcg PO DAILY@0800 RF: 0 hydrochlorothiazide 25 MG tablet 25 mg PO DAILY RF: 0 multivitamin with minerals 1 EACH tablet 1 tab PO DAILY RF: 0 calcium carbonate-vitamin D3 1 EACH tablet 1 tab PO DAILY RF: 0 melatonin 5 MG tablet 5 mg PO QHS RF: 0 acetaminophen 500 MG tablet 1,000 mg PO Q8 RF: 0 Discontinued gabapentin 100 MG capsule 100 mg PO TIDCM Qty: 90 RF: 0 pramipexole 0.125 mg tablet 0.25 mg PO QHS PRN PRN (Reason: RESTLESS LEGS) RF: 0 menthol-zinc oxide 1 APPLIC ointment 1 applic TOPICAL 0600,2200 RF: 0 Referrals / Follow Up: Cheryl Russell DO [Primary Care Provider] - Eliseo Guerra PA-C [PHYSICIAN FLEET ADMINISTRATOR] - 07/04/21 11:00 am Disposition Disposition (needs filled in before D/C Order can be placed): Home Health Service
[2021-06-16 14:33] VITALS: BP 119/59; PULSE 63; RESP 18; TEMP 36.4; O2SAT 93
[2021-06-16] MEDS: Pramipexole Di-HCl 0.25 MG Tablet PO (18:59)
[2021-06-16] MEDS: Baclofen 10 MG Tablet PO (19:00)
[2021-06-16 20:21] VITALS: PULSE 74; RESP 16; O2SAT 97
[2021-06-16] MEDS: MELATONIN 10 MG TABLET 5 MG PO (21:16)
[2021-06-17] MEDS: oxyCODONE 5 MG Tablet PO ×5 (03:51→21:09)
[2021-06-17] MEDS: Acetaminophen 500 MG Tablet 1000 MG PO ×3 (06:08→21:08)
[2021-06-17] MEDS: hydroCHLOROthiazide 25 MG Tablet PO (06:08)
[2021-06-17] MEDS: Pantoprazole Sodium 40 MG Tablet PO (06:08)
[2021-06-17 06:09] VITALS: BP 130/68; PULSE 62
[2021-06-17] MEDS: Magnesium Chloride 64 MG Delay Rel.Tablet 128 MG PO (06:09)
[2021-06-17] MEDS: Metoprolol(XL)Succ 100 MG Tablet PO (06:09)
[2021-06-17] MEDS: Nystatin Powder 15gm Bottle 1 APPLIC TOPICAL ×2 (06:09→16:37)
[2021-06-17] MEDS: amLODIPine 2.5 MG Tablet PO (06:09)
[2021-06-17] MEDS: Sertraline 100 MG Tablet PO (06:11)
[2021-06-17] MEDS: Gabapentin 300 MG Capsule PO ×3 (07:55→16:36)
[2021-06-17] MEDS: Multivitamins,Ther W-Minerals Tablet 1 TABLET PO (07:55)
[2021-06-17] MEDS: Aspirin 81 MG TAB.CHEW PO (07:55)
[2021-06-17] MEDS: Cyanocobalamin 500 MCG Tablet 1000 MCG PO (07:56)
[2021-06-17] MEDS: Calcium Carb/Vitamin D 1 TABLET Tablet PO (07:56)
[2021-06-17 14:45] VITALS: BP 110/65; PULSE 68; RESP 18; TEMP 36.8; O2SAT 91
--- NOTE | 2021-06-17 15:42 | NURSING ---
This nurse removed 37 ariana from right knee. [place] came out with ease. Patient tolerated well. Sutures also removed at this time.
[2021-06-17] MEDS: Senna/Docusate Sodium 1 Tablet 2 TABLET PO (16:35)
[2021-06-17] MEDS: Baclofen 10 MG Tablet PO (18:44)
[2021-06-17] MEDS: Pramipexole Di-HCl 0.25 MG Tablet PO (18:44)
[2021-06-17 19:50] VITALS: RESP 16
[2021-06-17] MEDS: MELATONIN 10 MG TABLET 5 MG PO (21:09)
[2021-06-18] MEDS: oxyCODONE 5 MG Tablet PO ×4 (03:27→20:10)
[2021-06-18] MEDS: hydroCHLOROthiazide 25 MG Tablet PO (06:09)
[2021-06-18] MEDS: Magnesium Chloride 64 MG Delay Rel.Tablet 128 MG PO (06:10)
[2021-06-18] MEDS: Pantoprazole Sodium 40 MG Tablet PO (06:11)
[2021-06-18] MEDS: Senna/Docusate Sodium 1 Tablet 2 TABLET PO (06:11)
[2021-06-18] MEDS: amLODIPine 2.5 MG Tablet PO (06:11)
[2021-06-18 06:12] VITALS: BP 113/80; PULSE 62
[2021-06-18] MEDS: Metoprolol(XL)Succ 100 MG Tablet PO (06:12)
[2021-06-18] MEDS: Acetaminophen 500 MG Tablet 1000 MG PO ×3 (06:12→20:14)
[2021-06-18] MEDS: Nystatin Powder 15gm Bottle 1 APPLIC TOPICAL ×2 (06:13→17:24)
[2021-06-18] MEDS: Sertraline 100 MG Tablet PO (06:13)
[2021-06-18] MEDS: traMADol 50 MG Tablet PO ×2 (06:18→22:38)
[2021-06-18] MEDS: Multivitamins,Ther W-Minerals Tablet 1 TABLET PO (08:07)
[2021-06-18] MEDS: Cyanocobalamin 500 MCG Tablet 1000 MCG PO (08:07)
[2021-06-18] MEDS: Gabapentin 300 MG Capsule PO ×3 (08:07→17:24)
[2021-06-18] MEDS: Calcium Carb/Vitamin D 1 TABLET Tablet PO (08:07)
[2021-06-18] MEDS: Aspirin 81 MG TAB.CHEW PO (08:07)
[2021-06-18 09:37] VITALS: PULSE 73; RESP 18; O2SAT 97
[2021-06-18 15:39] VITALS: BP 112/56; PULSE 65; RESP 18; TEMP 36.7; O2SAT 94
[2021-06-18] MEDS: Baclofen 10 MG Tablet PO (17:24)
[2021-06-18] MEDS: Pramipexole Di-HCl 0.25 MG Tablet PO (17:24)
[2021-06-18] MEDS: MELATONIN 10 MG TABLET 5 MG PO (20:14)
[2021-06-19] MEDS: oxyCODONE 5 MG Tablet PO ×2 (03:38→10:55)
[2021-06-19] MEDS: Magnesium Chloride 64 MG Delay Rel.Tablet 128 MG PO (06:27)
[2021-06-19] MEDS: Acetaminophen 500 MG Tablet 1000 MG PO (06:27)
[2021-06-19 06:28] VITALS: BP 123/61; PULSE 66
[2021-06-19] MEDS: Sertraline 100 MG Tablet PO (06:28)
[2021-06-19] MEDS: hydroCHLOROthiazide 25 MG Tablet PO (06:28)
[2021-06-19] MEDS: Metoprolol(XL)Succ 100 MG Tablet PO (06:28)
[2021-06-19] MEDS: Pantoprazole Sodium 40 MG Tablet PO (06:28)
[2021-06-19] MEDS: amLODIPine 2.5 MG Tablet PO (06:28)
[2021-06-19] MEDS: traMADol 50 MG Tablet PO (06:28)
[2021-06-19] MEDS: Nystatin Powder 15gm Bottle 1 APPLIC TOPICAL (06:29)
[2021-06-19] MEDS: Gabapentin 300 MG Capsule PO (07:55)
[2021-06-19] MEDS: Aspirin 81 MG TAB.CHEW PO (07:55)
[2021-06-19] MEDS: Cyanocobalamin 500 MCG Tablet 1000 MCG PO (07:55)
[2021-06-19] MEDS: Multivitamins,Ther W-Minerals Tablet 1 TABLET PO (07:55)
[2021-06-19] MEDS: Calcium Carb/Vitamin D 1 TABLET Tablet PO (07:55)
--- NOTE | 2021-06-19 08:42 | MDS.RN ---
Information for the mds was obtained from review of the clinical record, interview of resident, staff, and direct observation of resident's care.
[2021-06-19 10:58] VITALS: BP 123/67; PULSE 68; RESP 16; TEMP 36.4; O2SAT 92
== END 2021-06-19 12:10 | disposition home health service (06) | DRG 561 ==
PROVIDERS: Admitting Provider Family Medicine Geriatric Medicine; PCP Internal Medicine; Visit Provider Family Medicine Geriatric Medicine
DX: Z47.1 Aftercare following joint replacement surgery (principal); F32.A Depression, unspecified; G62.9 Polyneuropathy, unspecified; K21.9 Gastro-esophageal reflux disease without esophagitis; G25.81 Restless legs syndrome; I10 Essential (primary) hypertension; M19.90 Unspecified osteoarthritis, unspecified site; Z87.891 Personal history of nicotine dependence; Z96.651 Presence of right artificial knee joint; Z23 Encounter for immunization; Z79.899 Other long term (current) drug therapy
CPT/HCPCS: 0064A; 36415; 73564; 80048; 85025; 87426; 87635; 91306; 97110; 97116; 97162; 97166; 97530; 97535; 97802; G0009; 90670; A4216; U0003; U0005

== ENCOUNTER 2021-06-24 17:11 | Emergency (ER) | payer MEDICARE, SELFPAY ==
[2021-06-24 17:12] VITALS: BP 139/76; PULSE 66; RESP 16; TEMP 35.9; O2SAT 94; BMI 42.1
--- NOTE | 2021-06-24 17:32 | EDS_ITS ---
HPI History of Present Illness Chief Complaint: Lower Extremity Injury Informant: patient Narrative Narrative: 76-year-old female presenting to the emergency department with numbness on the right side of her knee. Patient is status post total knee replacement by just over [address] Stark. She was initially doing rehab in the TCU and is now doing rehab at home. She is today she was sitting in a chair and went to get up and felt something little bit strange in her knee. She then began to noticed that the right side of her knee and inferior to the knee has less sensation than the medial aspect. She notes swelling but not any different than normal. She denies any calf pain. She has not required any oxycodone since yesterday for pain. No reported fevers. [facility] Medical History Ambulates with cane Arthritis Bladder disease Bruising Former smoker Gastric reflux History of echocardiogram History of hiatal hernia Leg cramps Restless legs Walker as ambulation aid Wears dentures Wears glasses Home Medications amlodipine 2.5 mg PO DAILY 08/04/19 [History Last Taken 06/05/21] calcium carbonate-vitamin D3 1 tab PO DAILY 08/04/19 [History Last Taken Unknown] cyanocobalamin (vitamin B-12) 1,000 mcg PO DAILY@0800 08/04/19 [History Last Taken Unknown] hydrochlorothiazide 25 mg PO DAILY 08/04/19 [History Last Taken Unknown] melatonin 5 mg PO QHS 08/04/19 [History Last Taken Unknown] metoprolol succinate 100 mg PO DAILY 08/04/19 [History Last Taken 06/05/21] multivitamin with minerals 1 tab PO DAILY 08/04/19 [History Last Taken Unknown] omeprazole 40 mg PO DAILY 08/04/19 [History Last Taken 06/05/21] sertraline 100 mg PO DAILY 08/04/19 [History Last Taken 06/05/21] acetaminophen 1,000 mg PO Q8 06/06/21 [History Last Taken Unknown] aspirin 81 mg PO BIDCM 17 Days #0 tab 06/16/21 [Rx Last Taken Unknown] baclofen 10 mg PO 1900 30 Days #30 tab 06/16/21 [Rx Last Taken Unknown] gabapentin 300 mg PO TIDCM 30 Days #90 cap 06/16/21 [Rx Last Taken Unknown] magnesium chloride [Mag 64] 128 mg PO DAILY 30 Days #60 tab 06/16/21 [Rx Last Taken Unknown] oxycodone 5 mg PO Q4H PRN PRN 7 Days #42 tab 06/16/21 [Rx Last Taken Unknown] polyethylene glycol 3350 17 g PO DAILY 30 Days #30 ea 06/16/21 [Rx Last Taken Unknown] pramipexole 0.25 mg PO 1900 30 Days #30 tab 06/16/21 [Rx Last Taken Unknown] sennosides-docusate sodium [Stool Softener-Stimulant Laxat] 2 tab PO BID 30 Days #120 tab 06/16/21 [Rx Last Taken Unknown] tramadol 50 mg PO Q6H PRN PRN 7 Days #28 tab 06/16/21 [Rx Last Taken Unknown] Allergy/AdvReac Type Severity Reaction Status Date / Time No Known Allergies Allergy Verified 06/24/21 17:11 Surgical History History of back surgery History of eye surgery History of hysterectomy History of laparoscopic cholecystectomy History of repair of rectocele History of total right knee replacement History of tubal ligation Social History household members: none Smoking Status: Former smoker alcohol intake: never substance use type: does not use ROS ROS ED Constitutional Constitutional ED: Denies chills, fever(s) or weight loss Eyes Eyes: Denies change in vision or diplopia ENT ENT ED: Denies ear pain, rhinorrhea or sore throat Cardiovascular Cardiovascular: Denies chest pain, orthopnea, palpitations or racing heartbeat Respiratory/Chest Respiratory/Chest: Denies cough, dyspnea or orthopnea Gastrointestinal Gastrointestinal: Denies abdominal pain, diarrhea, nausea or vomiting Genitourinary Genitourinary ED: Denies dysuria, hematuria or urinary frequency Musculoskeletal Musculoskeletal: Reports other Details: See history of present illness ; Denies arthralgias or myalgias Integumentary Denies abscess or rash Neurologic Neurologic: Reports paresthesias; Denies headache(s) or weakness Psychiatric Psychiatric: Denies anxiety, depression, suicidal ideation or suicidal thoughts Endocrine Endocrinology: Denies polydipsia, polyphagia or polyuria Allergic/Immunologic Allergic/Immunologic ED: Denies mouth swelling, tongue swelling or urticaria EXAM Physical Exam Const Vital Signs: 06/24/21 17:12 Temperature 96.6 F L Temperature Source Temporal Pulse Rate 66 Respiratory Rate 16 Blood Pressure 139/76 H Blood Pressure Mean 97 Pulse Ox 94 Oxygen Delivery Method Room Air Positive well nourished, well developed and obese General Appearance ED: well developed Nutritional Appearance: obese HEENT Reports normocephalic, head/scalp atraumatic, TM's clear and moist mucous membranes Negative for trauma Tympanic Membrane ED: Yes TM's clear Eyes PERRL and EOMs intact bilaterally Neck no lymphadenopathy, supple and no JVD Resp normal respiratory effort and clear to auscultation bilaterally Cardio regular rate, regular rhythm and no murmurs GI normal to inspection, nondistended, normoactive bowel sounds and non-tender Palpation: soft Back/Spine no CVA tenderness and normal ROM Extremity normal to inspection Extremity Narrative: The right knee surgical incision appears normal. There is mild swelling of the right leg compared to the left. The calf is nontender. No palpable cords. Normal capillary refill. Patient reports decreased sensation over the lateral aspect of the knee. General Extremety ED: Negative for edema General Extremity: Negative for edema Neuro oriented x3 and CN's II-XII intact bilaterally Sensorium / Orientation: alert Motor Exam: strength 5/5 throughout Psych mental status grossly normal Mood & Affect: Negative for depressed or tearful Skin no rashes or lesions noted and no wounds MDM MDM MDM Narrative Medical decision making narrative: Clinically I think the patient appears well. I do not appreciate any redness or infectious symptoms. The numbness could be related to some localized swelling. I think the patient can be discharged home and following up with her doctors. Discharge Plan Triage Chief Complaint: Lower Extremity Injury ED Provider: Rian Escalera Dx/Rx/DC Orders Clinical Impression: Paresthesia Instructions: ED Paraesthesias Prescriptions: No Action metoprolol succinate 100 MG tablet extended release 24 hr 100 mg PO DAILY RF: 0 sertraline 100 MG tablet 100 mg PO DAILY RF: 0 amlodipine 2.5 MG tablet 2.5 mg PO DAILY RF: 0 omeprazole 40 MG capsule,delayed release(DR/EC) 40 mg PO DAILY RF: 0 cyanocobalamin (vitamin B-12) 500 MCG tablet 1,000 mcg PO DAILY@0800 RF: 0 hydrochlorothiazide 25 MG tablet 25 mg PO DAILY RF: 0 multivitamin with minerals 1 EACH tablet 1 tab PO DAILY RF: 0 calcium carbonate-vitamin D3 1 EACH tablet 1 tab PO DAILY RF: 0 melatonin 5 MG tablet 5 mg PO QHS RF: 0 acetaminophen 500 MG tablet 1,000 mg PO Q8 RF: 0 polyethylene glycol 3350 17 gram Powder In Packet 17 g PO DAILY 30 Days Qty: 30 RF: 0 sennosides-docusate sodium [Stool Softener-Stimulant Laxat] 8.6-50 mg Tablet 2 tab PO BID 30 Days Qty: 120 RF: 0 tramadol 50 mg Tablet 50 mg PO Q6H PRN PRN (Reason: Pain Score 1-5) 7 Days Qty: 28 RF: 0 baclofen 10 mg Tablet 10 mg PO 1900 30 Days Qty: 30 RF: 0 pramipexole 0.25 mg Tablet 0.25 mg PO 1900 30 Days Qty: 30 RF: 0 gabapentin 300 mg Capsule 300 mg PO TIDCM 30 Days Qty: 90 RF: 0 aspirin 81 mg Tablet,Chewable 81 mg PO BIDCM 17 Days Qty: 0 RF: 0 oxycodone 5 mg Tablet 5 mg PO Q4H PRN PRN (Reason: Pain Score 6-10) 7 Days Qty: 42 RF: 0 Mag 64 64 mg Tablet,Delayed Release (Dr/Ec) 128 mg PO DAILY 30 Days Qty: 60 RF: 0 Primary Care Provider: Cheryl Russell Referrals: Cheryl Russell DO [Primary Care Provider] - Louie Stark DO [STAFF PHYSICIAN] - Keep Smooth appointment Disposition Disposition: Home, Self Care
== END 2021-06-24 17:45 | disposition home or self-care (01) ==
PROVIDERS: Emergency Provider Emergency Medicine; PCP Internal Medicine; Visit Provider Emergency Medicine
DX: R20.2 Paresthesia of skin (principal); Z68.41 Body mass index [BMI] 40.0-44.9, adult; E66.9 Obesity, unspecified; Z96.651 Presence of right artificial knee joint; Z79.82 Long term (current) use of aspirin; Z79.899 Other long term (current) drug therapy; Z87.891 Personal history of nicotine dependence
CPT/HCPCS: 99282

== ENCOUNTER 2021-09-14 12:00 | Outpatient (RCR) | payer MEDICARE, SELFPAY ==
--- NOTE | 2021-08-18 07:59 | HP.PTEVAL ---
Patient's Visit Information TOREY SUAREZ is a 76 year old F referred to Physical Therapy by Eliseo Guerra PA-C with a diagnosis of PRESENCE OF RIGHT ARTIFICIAL KNEE JOINT. Date of Evaluation: 08/18/21 Physical Therapist: Sylvester Beaulieu, PT, Cert MDT, OCS - Visit Plan Frequency: 1-2x /Week Duration: 4 Weeks Plan: GYM PROGRAM NEXT. PT INTERVTIONS STRENGTHNEING QUADS/HAMS/HIP ,ROM,AND FUNCTIONAL STRENGHENING - Subjective This 76 y/o female presents to physical therapy with right TKR . Patient had right TKR 06/05/21 at [facility] [address] Stark and transferred [facility] Jun 18 d/c to home with [facility] for ~ 4weeks. Patient seen recommended PT Patient had x-rays looked . MEDS oxytocin. Patient has been able to go from fww -cane and currently no device but uses cane due to left knee. Patient goals to learn exercises in gym on own. Home situation 1 story home with 1 step ,laundry downstairs, tub/shower with seat. Patient has left knee pain and which needs knee replacement,. SOCIAL: single. VOCATION: retired - Objective POSTURE: mild forward posture. GAIT: reciprocal pattern slight lateral sway. BALANCE: good -. STAIRS: : ascend/descend 12 steps with rails one steps time. NEURO: c/o paresthesia lateral knee. AROM: 0-115 degrees supine knee flexion right. AAROM: 0-120 supine knee flexion right. MMT: (peak force)quads 32.5,hamstrings 22,4,hip flexion 22 .9 - Balance/Special Test Scores Lower Extremity Functional Score: 41 - Goals Goal 1:: I with gym progrom Goal Time Frame: 4-6 Weeks Goal 2:: Patient increase strength peak force by 10 to improve stairs . Goal Time Frame: 4-6 Weeks Goal 3:: Patient ambulate no device community distances Goal Time Frame: 4-6 Weeks Goal 4:: Patient to ascend/descend 12 steps with rails alteranting Goal Time Frame: 4-6 Weeks - Rehabilitation Potential Physical Therapy Diagnosis: Patient has right TKR with decrease strength and gait with no device ,alternating stairs and gym program thus need to skilled PT Rehabilitation Potential: Good - Anticipated Interventions Patient/Client Instruction: Educate patient on: Condition, Plan of Care For the Purpose of:: To decrease pain, To increase ROM, To improve muscle performance and motor function, To improve ability to perform ADL's, To increase tolerance to activity/condition/position, To improve ability of physical actions for home/community/work/leisure, To improve health of tissue, To decrease soft tissue restriction, To increase flexibility/ROM, To prevent re-injury Therapeutic Exercise to Include: Strength training, Power training, Endurance training, Balance training, Gait and locomotor training, Active ROM For the Purpose of:: To increase ROM, To improve muscle performance and motor function, To increase tolerance to activity/condition/position, To improve ability of physical actions for home/community/work/leisure, To improve health of tissue, To decrease soft tissue restriction, To increase flexibility/ROM, To improve endurance, To improve balance Thank you for the opportunity to evaluate your patient. For Medicare and Medicare HMO plans, please review the plan of care and approve it. It will need to be FAXED BACK to us at [phone] for Medicare purposes. For Medicare only, by signing this I certify the plan of care. Please let me know if there are questions or concerns regarding this plan of care. Physician Signature: Date:
--- NOTE | 2022-02-14 11:46 | HP.PT.NRP ---
TOREY SUAREZ was seen in my office for initial evaluation on 08/18/21. The following Plan of Care was established for this patient: Initial Frequency: 1-2x /Week Initial Duration: 4 Weeks Patient/Client Instruction: Educate patient on: Condition, Plan of Care For the Purpose of:: To decrease pain, To increase ROM, To improve muscle performance and motor function, To improve ability to perform ADL's, To increase tolerance to activity/condition/position, To improve ability of physical actions for home/community/work/leisure, To improve health of tissue, To decrease soft tissue restriction, To increase flexibility/ROM, To prevent re-injury Therapeutic Exercise to Include: Strength training, Power training, Endurance training, Balance training, Gait and locomotor training, Active ROM For the Purpose of:: To increase ROM, To improve muscle performance and motor function, To increase tolerance to activity/condition/position, To improve ability of physical actions for home/community/work/leisure, To improve health of tissue, To decrease soft tissue restriction, To increase flexibility/ROM, To improve endurance, To improve balance This patient was last seen in our office . Pertinent comments regarding their Physical therapy will appear below: At this point I will be discontinuing this patient from physical therapy. I would be happy to see this patient again in the future if found appropriate by the physician. Thank you! Sylvester Beaulieu, PT, Cert MDT, OCS Balance/Gait/Functional tests - Balance/Special Test Scores Lower Extremity Functional Score: 41
== END 2021-09-14 19:00 | disposition home or self-care (01) ==
LOC: PT 12:00
PROVIDERS: PCP Internal Medicine; Referring Provider Physician Assistant; Visit Provider Physician Assistant
DX: Z47.1 Aftercare following joint replacement surgery (principal); Z96.651 Presence of right artificial knee joint
CPT/HCPCS: 97110; 97162

== ENCOUNTER 2021-09-19 13:41 | Outpatient (CLI) | payer MEDICARE, SELFPAY ==
--- NOTE | 2021-09-19 13:45 | CT_ITS ---
STUDY: CT SCAN OF LOWER EXTREMITY LEFT REASON FOR EXAM: Female, 76 years old. OSTEOARTHRITIS. Shawn protocol. RADIATION DOSAGE (If Supplied By Facility): CTDIvol = ( 18.76 ) mGy, DLP = ( 1454.96 ) mGycm. Individualized dose optimization techniques were used for this CT.? TECHNIQUE: Multiple axial tomographic images of the left hip, knee and ankle joints were obtained. Coronal and sagittal reconstruction was obtained as well. COMPARISON: None. FINDINGS: Imaging of the hip joint was obtained. No significant abnormality is seen. There is good alignment. Imaging of the knee joint was obtained. There is a marked degree of joint space narrowing involving the medial compartment of knee joint with degenerative spur formation of the distal femur and proximal tibia. Imaging of the ankle joint was obtained. The ankle mortise is symmetrical. Cystic changes are seen in the tarsal bones. CT/Extremity Lower without Contra IMPRESSION: Marked degree of joint space narrowing involving the medial compartment of the joint with degenerative spur formation of the distal femur and proximal tibia. Electronically Signed: Ck Gilliland MD at 15:26 EDT ,
== END 2021-09-19 23:59 | disposition home or self-care (01) ==
LOC: CT 13:43
PROVIDERS: PCP Internal Medicine; Referring Provider Physician Assistant; Visit Provider Physician Assistant
DX: M17.12 Unilateral primary osteoarthritis, left knee (principal)
CPT/HCPCS: 73700

== ENCOUNTER 2021-10-23 16:06 | Observation (INO) | payer MEDICARE, SELFPAY ==
--- NOTE | 2021-09-19 13:30 | EKG12_ITS ---
Test Reason : PREOP Blood Pressure : / mmHG Vent. Rate : 088 BPM Atrial Rate : 088 BPM P-R Int : 180 ms QRS Dur : 092 ms QT Int : 372 ms P-R-T Axes : 021 -47 018 degrees QTc Int : 450 ms Normal sinus rhythm Left anterior fascicular block Septal infarct , age undetermined Abnormal ECG Confirmed by TAMEKA RODRIGUES, HIRAM ([id number]), international editorial producer MICHAEL RAPP ([id number]) on 09/20/2021 12:26:49 PM Referred By: Louie Stark Confirmed By:HIRAM ENGLISH MD
--- NOTE | 2021-09-19 13:43 | CT_ITS ---
STUDY: CT SCAN OF LOWER EXTREMITY LEFT REASON FOR EXAM: Female, 76 years old. OSTEOARTHRITIS. Shwan protocol. RADIATION DOSAGE (If Supplied By Facility): CTDIvol = ( 18.76 ) mGy, DLP = ( 1454.96 ) mGycm. Individualized dose optimization techniques were used for this CT.? TECHNIQUE: Multiple axial tomographic images of the left hip, knee and ankle joints were obtained. Coronal and sagittal reconstruction was obtained as well. COMPARISON: None. FINDINGS: Imaging of the hip joint was obtained. No significant abnormality is seen. There is good alignment. Imaging of the knee joint was obtained. There is a marked degree of joint space narrowing involving the medial compartment of knee joint with degenerative spur formation of the distal femur and proximal tibia. Imaging of the ankle joint was obtained. The ankle mortise is symmetrical. Cystic changes are seen in the tarsal bones.
[2021-09-20 10:44] LABS: Hematocrit 42.9 % (37-47); Hemoglobin 13.6 g/dL (12.0-15.0); Mean Corp Hgb Conc 31.7 g/dL (32-36); Mean Corpuscular Hgb 27.1 pg (27.0-32.0); Mean Corpuscular Volume 85.5 fL (81-99); Mean Platelet Vol. 9.9 fl (6.2-12.0); Platelet Count 176 K/mm3 (150-450); RBC Distribution Width CV 14.2 % (11.6-14.6); RBC Distribution Width SD 43.8 fl (35.1-43.9); Red Blood Count 5.02 M/mm3 (4.2-5.4); White Blood Count 5.3 K/mm3 (4.4-11.0)
[2021-09-20 11:05] LABS: Hemoglobin A1c 5.5 % (3.8-5.6)
[2021-09-20 11:06] LABS: Anion Gap 3 (5-15); BUN 15 mg/dL (7-18); BUN/Creat Ratio 19.3 RATIO (10-20); Calcium,Total 9.1 mg/dL (8.5-10.1); Chloride 103 mmol/L (98-107); Creatinine, Serum 0.78 mg/dL (0.55-1.02); EST Glomerular Filtration Rate 77 mL/min (>60); Est Glom Filt Rate - Afr Amer 93 mL/min (>60); Glucose 92 mg/dL (74-106); Magnesium 1.9 mg/dL (1.6-2.6); Potassium 3.4 mmol/L (3.5-5.1); Sodium Level 138 mmol/L (136-145)
[2021-10-23] VITALS (16 sets, daily range): BP systolic 78–150; BP diastolic 51–84; PULSE 59–93; RESP 14–20; TEMP 36.1–37; O2SAT 92–100; BMI 39.9
[2021-10-23] MEDS: Lactated Ringers 1,000 ML 15 ML IV (08:27)
[2021-10-23] MEDS: Magnesium 2 GM IV (08:27)
[2021-10-23] MEDS: Acetaminophen 500 MG Tablet 1000 MG PO ×3 (08:28→20:41)
[2021-10-23] MEDS: Gabapentin 600 MG Tablet PO (08:28)
--- NOTE | 2021-10-23 08:40 | RAD_ITS ---
STUDY: X-RAY CHEST REASON FOR EXAM: Female, 76 years old. Hypoxia TECHNIQUE: PA and lateral views of the chest. COMPARISON: Comparison is made with prior study dated 12/23/2020. FINDINGS: The lungs are clear and expanded. There is no demonstrated pleural abnormality. Normal size heart. Normal mediastinum and hany. Normal visualized pulmonary arteries. There is atherosclerotic tortuosity of the aortic arch and descending thoracic aorta. There are diffuse degenerative changes of the visualized thoracic spine. Dextroscoliosis. Prior fusion of the lower lumbar spine. There is degenerative osteoarthritis of the bilateral shoulders. There is no demonstrated abnormality of the visualized soft tissue structures of the upper abdomen. RAD/Chest PA and Lateral IMPRESSION: No acute abnormality is seen. Electronically Signed: Ck Gilliland MD at 9:07 EDT ,
[2021-10-23] MEDS: Ipratropium/Albuterol Sulfate 3 ML AMPUL.NEB INHALATION (09:00)
[2021-10-23 09:15] LABS: Bedside Glucose 97 mg/dL (74-106)
--- NOTE | 2021-10-23 09:55 | KNEE_PTH ---
PATIENT: TOREY SUAREZ LOC: [id number] U#:[id number] AGE/SX: 76/F [place]OM: [facility] [place]23/[address]: Dr. Louie Stark DO : 1945 BED: 1 DIS: 10/26/2021 SPEC #: [id number] RECD: 10/23/21 11:57 STATUS: MICHAEL RENilton #: [id number] TERRIE: 10/23/21 09:[address]: Louie Stark DEPT: SURGICAL PATHOLOGY RECD BY: Adriana Rothman ENTERED: 10/23/21 12:56 SP TYPE: TOTAL KNEE OTHR DR: Dr. Cheryl Russell DO Tissues: Knee, NOS Procedures: Decalcification bone/plaque Surgery Specimen Level IV HEADER OPERATION: ERAS, total knee replacement robotic arm assist PRE-OP DIAGNOSIS: Osteoarthritis left knee TISSUE SUBMITTED: Bone and soft tissue left knee MICROSCOPIC DIAGNOSIS Bone and soft tissue, left knee, total knee replacement/resection: Pieces of bone with degenerative osteoarthritic changes. ELISE:abimael 10/26/2021 MICROSCOPIC DESCRIPTION Slides are reviewed. GROSS DESCRIPTION Received is one container designated bone and soft tissue left knee. The specimen consists of multiple fragments of turner-yellow bone measuring in aggregate 8 x 10 x 3 cm. No soft tissue is identified. A number of bony fragments contain articular surfaces consistent with tibial plateau and femoral condyle and displaying prominent osteophyte formation, eburnation, and bone erosion. Sex Crimes Detective sections are submitted in two cassettes after decalcification. / ELISE:abimael 10/23/2021 TC:5 CPT: 11949, 36276
[2021-10-23] MEDS: Cefazolin 2 GM in 0.9% Normal Saline 100 ML IV (09:57)
[2021-10-23] MEDS: TXA 1000mg in NS100 100ml (IVPB at Incision) 660 MG IV (10:15)
[2021-10-23] MEDS: Lactated Ringers 1,000 ML 999 ML IV (11:00)
[2021-10-23] MEDS: TXA 1000mg in NS100 100ml (IVPB at Closure) 660 MG IV (11:08)
--- NOTE | 2021-10-23 11:25 | PCM.OPRPT ---
Report of Operation Date of Procedure: 10/23/21 Pre-Operative Diagnosis: OA left knee Post-Operative Diagnosis: same Surgery/Procedure Performed:: Left TKR Description of Surgical Findings:: Report of Operation Date of Procedure: 10/23/2021 Preoperative Diagnosis: [Left ] knee primary osteoarthritis Postoperative Diagnosis: [ Left ] knee primary osteoarthritis Operation: Robotic Assisted Knee Total Arthroplasty, [left ] knee Surgeon: Dr Louie Stark DO Delivery Motorcycle Driver: Eliseo Guerra PA-C Anesthesia: spinal Anesthesiologist: Fantasma Hill M.D. Findings: Stable knee with good patella tracking Specimen(s): Bony cuts Complications: No intraoperative complications Estimated Blood Loss: 20 cc IV Fluids: 1000 cc crystalloid Implants Used: 1. [place] [employer] press-fit size 3 femur 2. [place] [employer] size 3 tibia 3. 11 mm CS polyethylene 4. 32 mm patella Brief History Operative Indications: [ (76 y/o female) ] with history of [left ] knee osteoarthrosis with radiographic findings with loss of joint space, osteophyte formation and subchondral sclerosis. Failed conservative measures as mentioned in the H&P. Discussion of total knee arthroplasty as well as risk and benefits were discussed with the patient including but not limited to blood loss, DVTs, PEs, neurovascular damage, general risk of anesthesia including loss of life, and stiffness or instability were also discussed with the patient. Patient demonstrated understanding and was able to sign informed consent. Procedure: On the date of procedure, patient's [left ] lower extremity was marked in the preoperative area. The patient was then taken back to the operating room where that patient was placed on the table in the supine position. All bony prominences were identified and well-padded. Anesthesia assumed control of the C-spine and airway throughout the remainder of the procedure. A tourniquet was placed on the [left ] upper thigh and the leg was prepped in a sterile fashion. The surgeon then scrubbed at this time. Upon reentering the room, the [left ] lower extremity was draped in a standard orthopedic fashion. A timeout was then called and everyone agreed upon the side, the site, the procedure to be performed, patient's identity and antibiotics given. Esmarch bandage was used to exsanguinate the extremity and the tourniquet was placed up to 250 mmHg with the knee in flexion. A midline skin incision was made and a sharp dissection was taken down through skin, subcutaneous tissue and fat. The standard medial parapatellar incision was made and the patella was subluxed laterally. An appropriate deep MCL release was done and the fat pad was resected. Our attention was then directed to the patella. The patella was everted and a flat resection was made. The knee was then flexed up and 2 femoral pins were placed inside the incision and 2 tibial pins were placed outside the incision in the medial tibia bicortically. Once this was completed, the 2 checkpoints in the femur and tibia were placed. Knee was then flexed up and the bony landmarks were registered. Once the was completed, the knee taken through range of motion and manually stressed allowing us to plan for an appropriate tibial cut. The robotic arm was brought into the field sterilely and checkpoint and saw were registered. Based on the patient's deformity, the tibial cut was made in [2 degrees valgus ]. At this time, the tensioner was then placed in the joint and ligament tension was checked at 90 degrees and full extension. Based on the patient's ligamentous tension, appropriate adjustments were made to the operative plan and ligament releases were done. Once we were happy with our operative plan with balanced flexion and extension gaps, our attention was directed to the femur. The robot was brought into the field sterilely and registered. Posterior condylar cuts, anterior chamfer cuts and anterior cuts were appropriately made for a [size 3 ] femur. When these were completed, the saws were switched out in the distal femoral and posterior chamfer cuts were made. Protecting the soft tissue throughout this time. A [ size 3 ] base plate was selected. The knee was flexed to 90 degrees and soft tissues and posterior osteophytes were removed from the joint. 40 cc of the periarticular injection was injected into the posterior medial corner of the joint. The appropriate trials were then placed on the femur and tibia. A trial polyethylene was trialed to ensure proper balancing and stability of the knee. The appropriate tibial internal rotation was then marked with a bovie. Our attention was then directed to the patella. The lug holes were drilled and the patella trial was placed. Patellar tracking was checked and deemed appropriate. Once we were happy, lug holes were drilled for the femur and trial components were removed. The tibia was subluxed and pinned into place and the keel was punched and drilled appropriately. Final components were verified and opened. The wound was copiously irrigated with normal saline. The components were impacted into place with the tibia, femur and finally the patella. The trial poly component was placed and the knee was placed in full extension. The tracking, alignment and balance were verified and a [ 11 mm CS ] polyethylene component was placed. Once the final components were placed an Irrisept lavage was performed and the wound was copiously irrigated with normal saline solution and the periarticular injection was given. the wound was closed in a layer-ontiveros fashion using #1 vicryl interrupted sutures for the arthrotomy, 2-0 interrupted vicryl suture for the subcuticular layer and ariana for final skin closure. A sterile compressive dressing was then placed. The patient was then awakened from anesthesia, transferred to the rjansen and transferred to the PACU for recovery. My physician digital marketing assistant was a vital part of this case. He was important in appropriate retraction during the case, and protection of soft tissues during bony cuts. His intimate knowledge of the case and my steps aided in safe and expedient completion of the procedure as well as appropriate position of the leg during the case. He was also vital in assisting with closure under my direct supervision. Due to the complexity of this case, robotic arm was used to assist in the surgery to improve accuracy and clinical outcomes. Post-op Plan: DVT ppx; ASA 81 mg BID, thigh high compression stockings Follow up: in office in 2 weeks for wound check PT: to start POD #0 at hospital, outpatient PT should be arranged. Preoperative antibiotic: Ancef 2 grams IV Louei Stark DO Surgeon: Louie Stark parcel contractor: Eliseo Guerra Type of Anesthesia: Spinal Anesthesiologist: Fantasma Hill Estimated Blood Loss (mL): 20 cc Fluids Replaced: 1000 cc crystalloid Admit VTE Documentation VTE Present on Admission: No VTE Mechan Device Prophylaxis: SCD's and Thigh High RAISSA Hose VTE Pharm Prophylaxis ordered?: Yes
--- NOTE | 2021-10-23 12:00 | RAD_ITS ---
STUDY: X-RAY - LEFT KNEE REASON FOR EXAM: Female, 76 years old. Post op -- AP and Lateral xray of operative knee in PACU TECHNIQUE: 2 view(s) of the knee. COMPARISON: None. FINDINGS: Normal visualized distal femur. Normal visualized proximal tibia and fibula. Normal proximal tibiofibular articulation. The patient is status post total knee replacement. There is good alignment. Postoperative soft tissue changes. RAD/Knee 1 or 2 Views IMPRESSION: Status post total knee replacement. There is good alignment. Postoperative soft tissue changes. Electronically Signed: Ck Gilliland MD at 12:17 EDT ,
[2021-10-23] MEDS: Lactated Ringers 1,000 ML 125 ML IV (12:35)
[2021-10-23] MEDS: oxyCODONE 5 MG Tablet PO ×2 (15:57→20:40)
[2021-10-23] MEDS: Gabapentin 300 MG Capsule PO (17:07)
[2021-10-23] MEDS: Cefazolin 1 GM/50 ML BAG IV (17:09)
[2021-10-23] MEDS: Pramipexole Di-HCl 0.5 MG Tablet PO (18:06)
[2021-10-23] MEDS: Senna/Docusate Sodium 1 Tablet 2 TABLET PO (20:41)
[2021-10-24] VITALS (7 sets, daily range): BP systolic 105–135; BP diastolic 62–77; PULSE 55–68; RESP 16–18; TEMP 36.5–37.1; O2SAT 94–100; BMI 39.9
[2021-10-24] MEDS: Cefazolin 1 GM/50 ML BAG IV (01:19)
[2021-10-24 06:11] LABS: Hematocrit 36.7 % (37-47); Hemoglobin 11.7 g/dL (12.0-15.0); Mean Corp Hgb Conc 31.9 g/dL (32-36); Mean Corpuscular Hgb 27.6 pg (27.0-32.0); Mean Corpuscular Volume 86.6 fL (81-99); Mean Platelet Vol. 9.8 fl (6.2-12.0); Platelet Count 157 K/mm3 (150-450); RBC Distribution Width CV 14.3 % (11.6-14.6); RBC Distribution Width SD 44.8 fl (35.1-43.9); Red Blood Count 4.24 M/mm3 (4.2-5.4); White Blood Count 10.6 K/mm3 (4.4-11.0)
[2021-10-24] MEDS: oxyCODONE 5 MG Tablet PO ×4 (06:16→19:49)
[2021-10-24] MEDS: Acetaminophen 500 MG Tablet 1000 MG PO ×3 (06:16→21:11)
[2021-10-24 06:39] LABS: Anion Gap 4 (5-15); BUN 15 mg/dL (7-18); BUN/Creat Ratio 22.2 RATIO (10-20); Chloride 100 mmol/L (98-107); Creatinine, Serum 0.68 mg/dL (0.55-1.02); EST Glomerular Filtration Rate 90 mL/min (>60); Est Glom Filt Rate - Afr Amer 109 mL/min (>60); Estimated Creatinine Clearance 37.85 ml/min; Glucose 116 mg/dL (74-106); Potassium 3.8 mmol/L (3.5-5.1); Sodium Level 133 mmol/L (136-145)
--- NOTE | 2021-10-24 07:40 | PN.ORTHO_ITS ---
Subjective Subjective Seen at bedside. Patient states pain is been very well managed. Patient denies chest pain, shortness of breath, calf pain, nausea vomiting. Patient has no other complaints at this time. Patient states she is anticipating going to transitional care unit for postop rehab. Objective Data Objective Data Vital Signs: Vital Signs Temp Pulse Resp BP Pulse Ox 97.8 F 55 L 16 135/77 H 96 10/24/21 06:09 10/24/21 06:09 10/24/21 06:09 10/24/21 06:09 10/24/21 06:09 Oxygen Flow Rate (L/min) 2 Oxygen Delivery Method Room Air Weight: 99 kg Body Mass Index (BMI) 39.9 Intake & Output: Intake and Output for Last 24 Hours 10/22/21 10/23/21 10/24/21 23:59 23:59 23:59 Intake Total 4584 / 4584 450 / 450 Balance 4584 / 4584 450 / 450 Lab / Micro Data Result Diagrams: 10/24/21 04:53 10/24/21 04:53 Labs: Laboratory Results - last 24 hr 10/23/21 08:12: POC Glucose 97 10/24/21 04:53: WBC 10.6, RBC 4.24, Hgb 11.7 L, Hct 36.7 L, MCV 86.6, MCH 27.6, MCHC 31.9 L, RDW Std Deviation 44.8 H, RDW Coeff of Rufino 14.3, Plt Count 157, MPV 9.8 10/24/21 04:53: Sodium 133 L, Potassium 3.8, Chloride 100, Carbon Dioxide 29.0, Anion Gap 4 L, BUN 15, Creatinine 0.68, Estim Creat Clear Calc 37.85, Est GFR (MDRD) Af Amer 109, Est GFR (MDRD) Non-Af 90, BUN/Creatinine Ratio 22.2 H, Glucose 116 H, Calcium 9.0 Micro: Microbiology 09/20/21 09:27 Swab (Method) Nasal Screen MRSA/MSSA - Final Radiography Diagnostic Testing: Radiology Impression Chest X-Ray 10/23/21 08:40 IMPRESSION: No acute abnormality is seen. Electronically Signed: Ck Gilliland MD at 9:07 EDT , Knee X-Ray 10/23/21 12:00 IMPRESSION: Status post total knee replacement. There is good alignment. Postoperative soft tissue changes. Electronically Signed: Ck Gilliland MD at 12:17 EDT , Physical Exam Narrative Patient sitting in the chair at bedside comfortably. Patient no respiratory distress, speaking in full sentences. Patient is afebrile. Patient has good motion of the upper extremities without limitations. Exam left knee was cool to touch nonerythematous. The dressing was clean dry intact. Patient has no calf tenderness nodes negative signs and symptoms of DVT. Vital signs labs were all reviewed noted medical record. Const alert and oriented x3 General Appearance: cooperative HEENT Head and Scalp: atraumatic Eyes PERRL Neuro CN's II-XII intact bilaterally Psych mental status grossly normal Assessment & Plan Assessment/Plan (1) Status post total left knee replacement not using cement: PLAN: 1. Continue all pain medications as prescribed 2. Aspirin 81 mg 1 p.o. every 12 hours x30 days for postop DVT prophylaxis 3. Encourage incentive spirometry 4. Continue physical therapy weight-bear as tolerated with walker 5. RAISSA hose on during the day off at night 6. Possible discharge today to [facility] transitional care unit 7. Change dressing 11/01/2021 8. Staple removal 11/04/21 9. Follow-up in 2 weeks with Sascah Guerra PA-C with orthopedics
--- NOTE | 2021-10-24 07:45 | EX.PCM.DISCH ---
Discharge Instructions Diet Discharge Diet: No restrictions Activity Discharge Activity: May Not Drive and May Shower May shower in (days): 3 May resume sexual activity in: No Restrictions Ice area for (Minutes): 30 Weight Bearing Status: Weight bearing as tolerated Keep extremity elevated above heart level: Operative Extremity Dressing / Incision Call your doctor if your incision/area has: Continuous Slow Oozing, Sudden Increased Bleeding, Increased Pain/ Swelling, Increased Redness, Foul Smelling Discharge and Swelling at the incision site Change Dressing in: 6 days Follow Up Care Test Results: Test results from this visit will be discussed in further detail at your follow-up appointment, if applicable. Discharge Plan Admission Admit Date/Time: 10/23/21 16:06 Primary Reason for Your Visit: Left total knee replacement Attending Provider: Louie tSark Primary Care Provider: Cheryl Russell Discharge Orders/Prescriptions Prescriptions: New acetaminophen 500 mg Tablet 1,000 mg PO Q8 7 Days Qty: 42 RF: 0 aspirin 81 mg Tablet,Chewable 81 mg PO 0800 30 Days Qty: 30 RF: 0 Continued sertraline 100 MG tablet 100 mg PO DAILY RF: 0 amlodipine 2.5 MG tablet 2.5 mg PO DAILY RF: 0 omeprazole 40 MG capsule,delayed release(DR/EC) 40 mg PO DAILY RF: 0 cyanocobalamin (vitamin B-12) 500 MCG tablet 1,000 mcg PO DAILY@0800 RF: 0 hydrochlorothiazide 25 MG tablet 25 mg PO DAILY RF: 0 multivitamin with minerals 1 EACH tablet 1 tab PO DAILY RF: 0 calcium carbonate-vitamin D3 1 EACH tablet 1 tab PO DAILY RF: 0 melatonin 5 MG tablet 5 mg PO QHS PRN (Reason: Sleep) RF: 0 acetaminophen 500 MG tablet 1,000 mg PO Q8 PRN (Reason: Pain) RF: 0 tramadol 50 mg Tablet 50 mg PO Q6H PRN PRN (Reason: Pain Score 1-5) 7 Days Qty: 28 RF: 0 gabapentin 300 mg Capsule 300 mg PO TIDCM 30 Days Qty: 90 RF: 0 Mag 64 64 mg Tablet,Delayed Release (Dr/Ec) 128 mg PO DAILY 30 Days Qty: 60 RF: 0 pramipexole 0.25 mg tablet 0.5 mg PO 1900 RF: 0 ciprofloxacin HCl 750 mg Tablet 500 mg PO BID RF: 0 No Action metoprolol succinate 100 MG tablet extended release 24 hr 100 mg PO DAILY RF: 0 Referrals / Follow Up: Cheryl Russell DO [Primary Care Provider] -
[2021-10-24] MEDS: Aspirin 81 MG TAB.CHEW PO (08:13)
[2021-10-24] MEDS: Calcium Carb/Vitamin D 1 TABLET Tablet PO (08:13)
[2021-10-24] MEDS: Cyanocobalamin 500 MCG Tablet 1000 MCG PO (08:14)
[2021-10-24] MEDS: Gabapentin 300 MG Capsule PO ×3 (08:17→17:33)
[2021-10-24] MEDS: Pantoprazole Sodium 40 MG Tablet PO (10:19)
[2021-10-24] MEDS: Sertraline 100 MG Tablet PO (10:20)
[2021-10-24] MEDS: Metoprolol(XL)Succ 100 MG Tablet PO (10:20)
[2021-10-24] MEDS: Senna/Docusate Sodium 1 Tablet 2 TABLET PO ×2 (10:20→21:11)
[2021-10-24] MEDS: amLODIPine 2.5 MG Tablet PO (10:20)
[2021-10-24] MEDS: Magnesium Chloride 64 MG Delay Rel.Tablet 128 MG PO (10:20)
[2021-10-24] MEDS: hydroCHLOROthiazide 25 MG Tablet PO (10:20)
--- NOTE | 2021-10-24 10:50 | CASEMGMT ---
TRACY HANEY Face to Face with patient for initial transition planning/care coordination assessment. TRACY HANEY introduced self and role at [facility]. Patient sitting in chair, alert and oriented. Patient willing to participate in assessment and is able to answer all questions appropriately. Care providers, pharmacy, and demographics verified. Patient wishes to discharge to TCU for additional therapy. TRACY HANEY explained that insurance will have to approve and could possibly deny patient for TCU. Patient voiced understanding. Patient states she has no further needs or concerns at this time. CM to follow for discharge planning needs that may arise. PCP: Drew Specialists: dari Stark Pharmacy: [facility] Insurance: [employer] Prescription Benefit: yes Living Will/HPOA: yes, daughter Churchill LNOK: daughter Living Arrangements: Patient lives alone in a first floor apartment with no steps. Patient states she is independent at home prior to surgery Transportation: self, daughter DME/HHC: Patient has shower chair, raised toilet, walker, rollator, and grab bars at home. Patient had previously been to TCU in the past. Patient has had [facility] HHC in the past. TRACY HANEY called and left message for [facility] TCU intake regarding referral. Disposition Plan: TCU pending acceptance and precert. Ny INTERIANO, RN, CM
--- NOTE | 2021-10-24 11:04 | CASEMGMT ---
TRACY CM in to complete CELIS form with patient. RN MEDINA explained CELIS form to patient, patient voiced understanding. Patient signed CELIS form and filed in chart. Patient provided with copy of signed CELIS form. Patient had no further questions or concerns at this time.
--- NOTE | 2021-10-24 11:20 | CASEMGMT ---
TRACY HANEY received call from Kylee at TCU. They are able to accept the patient and will initiate precert. TRACY HANEY updated KYMBERLY Jamil.
--- NOTE | 2021-10-24 14:28 | PHA.DC.MR ---
Pharmacy Service has performed discharge medication reconciliation for this patient. The patient's discharge medication list was reviewed for discrepancies and discrepancies were resolved. This [facility] spoke to nurse, patient is no longer taking ciprofloxacin. Spoke to corey Cruz to d/c. Home Medications amlodipine 2.5 mg PO DAILY 08/04/19 calcium carbonate-vitamin D3 1 tab PO DAILY 08/04/19 cyanocobalamin (vitamin B-12) 1,000 mcg PO DAILY@0800 08/04/19 hydrochlorothiazide 25 mg PO DAILY 08/04/19 melatonin 5 mg PO QHS PRN 08/04/19 metoprolol succinate 100 mg PO DAILY 08/04/19 multivitamin with minerals 1 tab PO DAILY 08/04/19 omeprazole 40 mg PO DAILY 08/04/19 sertraline 100 mg PO DAILY 08/04/19 acetaminophen 1,000 mg PO Q8 PRN 06/06/21 Mag 64 128 mg PO DAILY 30 Days #60 tab 06/16/21 gabapentin 300 mg PO TIDCM 30 Days #90 cap 06/16/21 tramadol 50 mg PO Q6H PRN PRN 7 Days #28 tab 06/16/21 pramipexole 0.5 mg PO 1900 09/18/21 acetaminophen 1,000 mg PO Q8 7 Days #42 tab 10/24/21 aspirin 81 mg PO 0800 30 Days #30 tab 10/24/21
[2021-10-24] MEDS: Pramipexole Di-HCl 0.5 MG Tablet PO (17:34)
[2021-10-24] MEDS: traMADol 50 MG Tablet PO (21:11)
[2021-10-24] MEDS: MELATONIN 10 MG TABLET 5 MG PO (21:17)
[2021-10-25] MEDS: oxyCODONE 5 MG Tablet PO ×4 (01:47→22:10)
[2021-10-25 02:00] VITALS: BP 111/65; PULSE 73; RESP 16; TEMP 36.8; O2SAT 94
[2021-10-25 05:27] LABS: Hematocrit 30.4 % (37-47); Hemoglobin 9.6 g/dL (12.0-15.0); Mean Corp Hgb Conc 31.6 g/dL (32-36); Mean Corpuscular Hgb 27.2 pg (27.0-32.0); Mean Corpuscular Volume 86.1 fL (81-99); Platelet Count 131 K/mm3 (150-450); RBC Distribution Width CV 14.6 % (11.6-14.6); RBC Distribution Width SD 46.5 fl (35.1-43.9); Red Blood Count 3.53 M/mm3 (4.2-5.4); White Blood Count 7.5 K/mm3 (4.4-11.0)
[2021-10-25] MEDS: Acetaminophen 500 MG Tablet 1000 MG PO ×3 (05:52→22:11)
[2021-10-25] MEDS: traMADol 50 MG Tablet PO ×3 (05:52→19:55)
[2021-10-25 10:00] VITALS: BP 122/75; PULSE 84; RESP 18; TEMP 36.7; O2SAT 99
[2021-10-25] MEDS: Aspirin 81 MG TAB.CHEW PO (10:54)
[2021-10-25] MEDS: Gabapentin 300 MG Capsule PO ×3 (10:55→17:53)
[2021-10-25] MEDS: Cyanocobalamin 500 MCG Tablet 1000 MCG PO (10:55)
[2021-10-25] MEDS: Pantoprazole Sodium 40 MG Tablet PO (10:55)
[2021-10-25] MEDS: Calcium Carb/Vitamin D 1 TABLET Tablet PO (10:55)
[2021-10-25] MEDS: amLODIPine 2.5 MG Tablet PO (10:56)
[2021-10-25] MEDS: Magnesium Chloride 64 MG Delay Rel.Tablet 128 MG PO (10:56)
[2021-10-25] MEDS: hydroCHLOROthiazide 25 MG Tablet PO (10:56)
[2021-10-25] MEDS: Senna/Docusate Sodium 1 Tablet 2 TABLET PO ×2 (10:56→22:11)
[2021-10-25 10:57] VITALS: PULSE 80
[2021-10-25] MEDS: Metoprolol(XL)Succ 100 MG Tablet PO (10:57)
[2021-10-25] MEDS: Sertraline 100 MG Tablet PO (10:57)
--- NOTE | 2021-10-25 11:04 | CASEMGMT ---
Addendum entered by Vi Christine 10/25/21 12:10: TRACY HANEY back into pt room, discussed with pt that we need a back up plan in case she is denied TCU by her insurance. Pt states she has children but they are not able to stay with her as they work themselves. Patient was provided a list of [facility] providers including quality and resource use data and consistent with the patient?s preferred geographic region, medical needs, and insurance network. Pt will review and is aware TRACY HANEY will be back for choices if pt is denied TCU. Pt agreeable to plan. Original Note: TRACY HANEY in to pt room to discuss dc planning, pt nurse at bedside stating pt had a difficult time with therapy this morning. Pt was just medicated. Will await decision for precert.
--- NOTE | 2021-10-25 14:52 | CASEMGMT ---
Social Work Return call from Kylee in TCU. Pt has been approved by insurance for placement in TCU. Room not available in TCU today but possibly tomorrow. Plan: TCU tomorrow ASAD Sosa
--- NOTE | 2021-10-25 15:42 | PCM.PN.ORT ---
Subjective Subjective Patient lying in bed sleeping. Patient easy to awake, patient states pain is been well managed. Patient denies chest pain, shortness of breath, calf pain, nausea vomiting. Patient states she is ready for discharge to transitional care unit. Objective Data Objective Data Vital Signs: Vital Signs Temp Pulse Resp BP Pulse Ox 98.0 F 80 18 122/75 H 99 10/25/21 10:00 10/25/21 10:57 10/25/21 10:00 10/25/21 10:00 10/25/21 10:00 Oxygen Flow Rate (L/min) 2 Oxygen Delivery Method Room Air Weight: 99 kg Body Mass Index (BMI) 39.9 Intake & Output: Intake and Output for Last 24 Hours 10/23/21 10/24/21 10/25/21 23:59 23:59 23:59 Intake Total 4584 / 4584 1850 / 1850 Balance 4584 / 4584 1850 / 1850 Lab / Micro Data Result Diagrams: 10/25/21 04:22 10/24/21 04:53 Labs: Laboratory Results - last 24 hr 10/25/21 04:22: WBC 7.5, RBC 3.53 L, Hgb 9.6 L, Hct 30.4 L, MCV 86.1, MCH 27.2, MCHC 31.6 L, RDW Std Deviation 46.5 H, RDW Coeff of Rufino 14.6, Plt Count 131 L, MPV 10.0 Micro: Microbiology 09/20/21 09:27 Swab (Method) Nasal Screen MRSA/MSSA - Final Physical Exam Narrative Exam, I found patient sleeping comfortably in bed. Patient was easy awake and alert. Patient no respiratory distress, speaking in full sentences. Vital signs labs reviewed noted. Patient's dressings clean dry intact. Neurovascular is otherwise intact. Patient has no signs and symptoms of DVT. Const alert and oriented x3 HEENT normocephalic Eyes PERRL Cardio regular rate Neuro CN's II-XII intact bilaterally Psych mental status grossly normal and affect normal Assessment & Plan Assessment/Plan (1) Status post total left knee replacement not using cement: PLAN: 1. Continue all pain medications as prescribed 2. Aspirin 81 mg 1 p.o. every 12 hours 3 for 30 days for postop DVT prophylaxis 3. Continue physical therapy, weight-bear as tolerated with walker 4. Encourage incentive spirometry 5. Discharge to transitional care unit tomorrow
--- NOTE | 2021-10-25 15:45 | PCM.TXEXTCAR ---
Diet 10/23/21 16:14 Diet: Cardiac - Heart Healthy Wound(s) LEFT KNEE: Wound Type: Surgical Incision left below knee: Wound Type: Surgical Incision Therapies Weight Bearing: Weight bearing as tolerated Problem/Diagnosis (1) Status post total left knee replacement not using cement: Status: Acute Allergies/Procedures Done in Hospital Allergies No Known Allergies Allergy (Verified 10/23/21 08:15) Type of Care/Length of Stay Estimated LOS: Convalescent Care Less Than 30 days Type of Care Needed: Acute Rehab Rehab Potential: Good Prognosis: Good Additional Orders/Day of Discharge Day of Discharge: 10/26/21 Discharge Plan Admission Admit Date/Time: 10/23/21 16:06 Primary Reason for Your Visit: Left total knee replacement Attending Provider: Louie Stark Primary Care Provider: Cheryl Russell Discharge Orders/Prescriptions Prescriptions: New acetaminophen 500 mg Tablet 1,000 mg PO Q8 7 Days Qty: 42 RF: 0 aspirin 81 mg Tablet,Chewable 81 mg PO 0800 30 Days Qty: 30 RF: 0 oxycodone 5 mg Tablet 5 - 10 mg PO Q4H PRN PRN (Reason: Pain Score 4-10) 7 Days Qty: 84 RF: 0 Continued sertraline 100 MG tablet 100 mg PO DAILY RF: 0 amlodipine 2.5 MG tablet 2.5 mg PO DAILY RF: 0 omeprazole 40 MG capsule,delayed release(DR/EC) 40 mg PO DAILY RF: 0 cyanocobalamin (vitamin B-12) 500 MCG tablet 1,000 mcg PO DAILY@0800 RF: 0 hydrochlorothiazide 25 MG tablet 25 mg PO DAILY RF: 0 multivitamin with minerals 1 EACH tablet 1 tab PO DAILY RF: 0 calcium carbonate-vitamin D3 1 EACH tablet 1 tab PO DAILY RF: 0 melatonin 5 MG tablet 5 mg PO QHS PRN (Reason: Sleep) RF: 0 acetaminophen 500 MG tablet 1,000 mg PO Q8 PRN (Reason: Pain) RF: 0 tramadol 50 mg Tablet 50 mg PO Q6H PRN PRN (Reason: Pain Score 1-5) 7 Days Qty: 28 RF: 0 gabapentin 300 mg Capsule 300 mg PO TIDCM 30 Days Qty: 90 RF: 0 Mag 64 64 mg Tablet,Delayed Release (Dr/Ec) 128 mg PO DAILY 30 Days Qty: 60 RF: 0 pramipexole 0.25 mg tablet 0.5 mg PO 1900 RF: 0 No Action metoprolol succinate 100 MG tablet extended release 24 hr 100 mg PO DAILY RF: 0 Referrals / Follow Up: Cheryl Russell DO [Primary Care Provider] -
[2021-10-25 17:00] VITALS: BP 126/74; PULSE 81; RESP 18; TEMP 36.7; O2SAT 95
[2021-10-25] MEDS: Pramipexole Di-HCl 0.5 MG Tablet PO (17:54)
[2021-10-25 20:36] VITALS: BP 143/80; PULSE 75; RESP 18; TEMP 37.2; O2SAT 96
[2021-10-25] MEDS: MELATONIN 10 MG TABLET 5 MG PO (22:10)
[2021-10-26] MEDS: oxyCODONE 5 MG Tablet PO ×2 (02:24→09:39)
[2021-10-26 02:30] VITALS: BP 109/60; PULSE 73; RESP 18; TEMP 36.6; O2SAT 100
[2021-10-26 05:30] LABS: Hematocrit 29.3 % (37-47); Hemoglobin 9.3 g/dL (12.0-15.0); Mean Corp Hgb Conc 31.7 g/dL (32-36); Mean Corpuscular Volume 84.9 fL (81-99); Mean Platelet Vol. 9.8 fl (6.2-12.0); Platelet Count 128 K/mm3 (150-450); RBC Distribution Width CV 14.6 % (11.6-14.6); RBC Distribution Width SD 44.9 fl (35.1-43.9); Red Blood Count 3.45 M/mm3 (4.2-5.4); White Blood Count 6.5 K/mm3 (4.4-11.0)
[2021-10-26] MEDS: Acetaminophen 500 MG Tablet 1000 MG PO (06:21)
[2021-10-26] MEDS: traMADol 50 MG Tablet PO (06:21)
[2021-10-26 07:00] VITALS: O2SAT 97
--- NOTE | 2021-10-26 07:42 | PN.ORTHO_ITS ---
Subjective Subjective Patient sitting at bedside. Patient states pain has been very well managed. Patient is ready to be transferred to transitional care unit at [facility]. Patient has finally been approved. Patient has no other complaints at this time. Denies chest pain, shortness of breath, calf pain, nausea vomiting. Objective Data Objective Data Vital Signs: Vital Signs Temp Pulse Resp BP Pulse Ox 97.9 F 73 18 109/60 100 10/26/21 02:30 10/26/21 02:30 10/26/21 02:30 10/26/21 02:30 10/26/21 02:30 Oxygen Flow Rate (L/min) 2 Oxygen Delivery Method Nasal Cannula Weight: 99 kg Body Mass Index (BMI) 39.9 Intake & Output: Intake and Output for Last 24 Hours 10/24/21 10/25/21 10/26/21 23:59 23:59 23:59 Intake Total 1850 / 1850 1485.75 / 1485.75 Balance 1850 / 1850 1485.75 / 1485.75 Lab / Micro Data Result Diagrams: 10/26/21 04:27 10/24/21 04:53 Labs: Laboratory Results - last 24 hr 10/26/21 04:27: WBC 6.5, RBC 3.45 L, Hgb 9.3 L, Hct 29.3 L, MCV 84.9, MCH 27.0, MCHC 31.7 L, RDW Std Deviation 44.9 H, RDW Coeff of Rufino 14.6, Plt Count 128 L, MPV 9.8 Micro: Microbiology 09/20/21 09:27 Swab (Method) Nasal Screen MRSA/MSSA - Final Physical Exam Narrative Patient sitting comfortably in the chair at bedside. Patient no respiratory distress, speaking in full sentences. Dressing is clean dry intact. Patient is afebrile. Neurovascular patient is otherwise intact. Patient had no signs and symptoms of DVT. Const alert and oriented x3 Eyes PERRL Neuro CN's II-XII intact bilaterally Psych mental status grossly normal Assessment & Plan Assessment/Plan (1) Status post total left knee replacement not using cement: PLAN: 1. Continue all pain medications as prescribed 2. Aspirin 81 mg 1 p.o. every 12 hours x30 days for postop DVT prophylaxis 3. Encourage incentive spirometry 4. Weight-bear as tolerated with walker 5. Continue physical therapy in the transitional care unit [facility] 6. Staple removal 11/04/2021 7. Patient can shower 8. Follow-up in 2 weeks with pedro Guerra PA-C with orthopedics
[2021-10-26 08:30] VITALS: BP 97/63; PULSE 78; RESP 18; TEMP 36.7; O2SAT 94
--- NOTE | 2021-10-26 09:11 | CASEMGMT ---
Social Work SW spoke with Kylee in TCU and they have a bed available for pt today. Physician aware and pt to be discharged. Orders faxed to TCU. SW met with pt and informed that she can discharge to TCU today. Pt is agreeable to discharge and declined SW notifying next of kin. Pt states she will call her family and update. Nursing notified. ASAD Sosa
[2021-10-26] MEDS: Aspirin 81 MG TAB.CHEW PO (09:29)
[2021-10-26] MEDS: Gabapentin 300 MG Capsule PO (09:31)
[2021-10-26] MEDS: Cyanocobalamin 500 MCG Tablet 1000 MCG PO (09:31)
[2021-10-26] MEDS: Calcium Carb/Vitamin D 1 TABLET Tablet PO (09:31)
[2021-10-26] MEDS: hydroCHLOROthiazide 25 MG Tablet PO (09:31)
[2021-10-26] MEDS: Magnesium Chloride 64 MG Delay Rel.Tablet 128 MG PO (09:31)
[2021-10-26 09:32] VITALS: PULSE 85
[2021-10-26] MEDS: Pantoprazole Sodium 40 MG Tablet PO (09:32)
[2021-10-26] MEDS: Metoprolol(XL)Succ 100 MG Tablet PO (09:32)
[2021-10-26] MEDS: Sertraline 100 MG Tablet PO (09:32)
[2021-10-26] MEDS: Senna/Docusate Sodium 1 Tablet 2 TABLET PO (09:32)
[2021-10-26] MEDS: amLODIPine 2.5 MG Tablet PO (09:32)
--- NOTE | 2021-10-30 09:23 | DS.PCM_ITS ---
Providers Date of Admission: 10/23/21 Primary Care Physician: Dr. Cheryl Russell DO Reason For Visit: ROBOT ASSIST LT TOTAL KNEE Diagnosis Discharge Diagnosis (1) Status post total left knee replacement not using cement: Status: Acute Code(s): Z96.652 - Presence of left artificial knee joint Medications at Discharge Home Medications amlodipine 2.5 mg PO DAILY 08/04/19 calcium carbonate-vitamin D3 1 tab PO 0800 08/04/19 cyanocobalamin (vitamin B-12) 1,000 mcg PO DAILY@0800 08/04/19 hydrochlorothiazide 25 mg PO DAILY 08/04/19 melatonin 5 mg PO QHS PRN 08/04/19 metoprolol succinate 100 mg PO DAILY 08/04/19 multivitamin with minerals 1 tab PO DAILY 08/04/19 omeprazole 40 mg PO DAILY 08/04/19 sertraline 100 mg PO DAILY 08/04/19 acetaminophen 1,000 mg PO Q8 PRN 06/06/21 tramadol 50 mg PO Q6H PRN PRN 7 Days #28 tab 06/16/21 pramipexole 0.5 mg PO 1900 09/18/21 oxycodone 5 - 10 mg PO Q4H PRN PRN 7 Days #84 tab 10/25/21 Mag 64 128 mg PO DAILY 10/26/21 acetaminophen 1,000 mg PO Q8 10/26/21 aspirin 81 mg PO 0800 10/26/21 gabapentin 300 mg PO TIDCM 10/26/21 Hospital Course Operations total knee replacement Procedures None Summary of Care Provided Minutes Spent on Discharge: 30 Hospital Course: Patient is status left total knee arthroplasty. Patient did very well postoperatively pain was well managed. Patient was able to weight- bear with assistance within with a walker. Patient's labs and vitals all stay within normal limits. Patient was discharged to extended-care facility to continue with her inpatient physical therapy as she lives on her own without assistance. Patient stay was uneventful. Patient was stable upon discharge. Physical Exam Narrative The dressing was clean dry intact. Patient had no calf tenderness patient. Patient was afebrile. Neurovascular is otherwise intact. Patient no respiratory distress, speaking in full sentences. Const alert and oriented x3 General Appearance: cooperative Eyes PERRL Neck General: normal visual inspection Resp Effort and Inspection: able to speak in complete sentences Extremity General Extremity: normal exam except as noted Psych Appearance: grossly normal Activity / Motor Behavior: appropriate eye contact Speech: normal speech Thought Process: normal thought process Thought Content: normal thought content Memory / Cognition: memory grossly intact Weight / BMI Weight Weight: 99 kg Body Mass Index (BMI) 39.9 ABG / Lab / Microbiology Data Result Diagrams: 10/26/21 04:27 10/24/21 04:53 Microbiology: Microbiology 10/26/21 10:15 Nasal Secretion SARS-CoV-2 Antigen (Rapid) - Final 09/20/21 09:27 Swab (Method) Nasal Screen MRSA/MSSA - Final D/C Instructions Discharge Diet: No restrictions May shower in (days): 3 May resume sexual activity in: No Restrictions Ice area for (Minutes): 30 Weight Bearing Status: Weight bearing as tolerated Keep extremity elevated above heart level: Operative Extremity Call your doctor if your incision/area has: Continuous Slow Oozing, Sudden Increased Bleeding, Increased Pain/ Swelling, Increased Redness, Foul Smelling Discharge and Swelling at the incision site Meaningful Use Info Meaningful Use Diagnoses (Choose all that apply): None applicable Discharge Plan Admission Admit Date/Time: 10/23/21 16:06 Primary Reason for Your Visit: Left total knee replacement Attending Provider: Louie Stark Primary Care Provider: Cheryl Russell Discharge Orders/Prescriptions Prescriptions: New oxycodone 5 mg Tablet 5 - 10 mg PO Q4H PRN PRN (Reason: Pain Score 4-10) 7 Days Qty: 84 RF: 0 Continued sertraline 100 MG tablet 100 mg PO DAILY RF: 0 amlodipine 2.5 MG tablet 2.5 mg PO DAILY RF: 0 omeprazole 40 MG capsule,delayed release(DR/EC) 40 mg PO DAILY RF: 0 cyanocobalamin (vitamin B-12) 500 MCG tablet 1,000 mcg PO DAILY@0800 RF: 0 hydrochlorothiazide 25 MG tablet 25 mg PO DAILY RF: 0 multivitamin with minerals 1 EACH tablet 1 tab PO DAILY RF: 0 calcium carbonate-vitamin D3 1 EACH tablet 1 tab PO 0800 RF: 0 melatonin 5 MG tablet 5 mg PO QHS PRN (Reason: Sleep) RF: 0 acetaminophen 500 MG tablet 1,000 mg PO Q8 PRN (Reason: Pain) RF: 0 tramadol 50 mg Tablet 50 mg PO Q6H PRN PRN (Reason: Pain Score 1-5) 7 Days Qty: 28 RF: 0 pramipexole 0.25 mg tablet 0.5 mg PO 1900 RF: 0 No Action metoprolol succinate 100 MG tablet extended release 24 hr 100 mg PO DAILY RF: 0 acetaminophen 500 mg tablet 1,000 mg PO Q8 RF: 0 gabapentin 300 mg capsule 300 mg PO TIDCM RF: 0 aspirin 81 mg tablet,chewable 81 mg PO 0800 RF: 0 Mag 64 64 mg tablet,delayed release (DR/EC) 128 mg PO DAILY RF: 0 Referrals / Follow Up: Cheryl Russell DO [Primary Care Provider] - Disposition Disposition (needs filled in before D/C Order can be placed): [facility]
== END 2021-10-26 13:25 | disposition skilled nursing facility (03) ==
LOC: SDC 16:57 → MS3 18:01
PROVIDERS: Admitting Provider Orthopaedic Surgery; PCP Internal Medicine; Referring Provider Orthopaedic Surgery; Visit Provider Orthopaedic Surgery
PROC: 0SRD0JZ Replacement of Left Knee Joint with Synthetic Substitute, Open Approach (ICD-10-PCS; CPT 27447; principal; 2021-10-23 09:25)
DX: M17.12 Unilateral primary osteoarthritis, left knee (principal); I10 Essential (primary) hypertension; Z79.899 Other long term (current) drug therapy; K21.9 Gastro-esophageal reflux disease without esophagitis; G25.81 Restless legs syndrome; N32.9 Bladder disorder, unspecified; Z87.891 Personal history of nicotine dependence
CPT/HCPCS: 27447; S2900; 01402; 64447; 36415; 71046; 73560; 80048; 82962; 83036; 83735; 85027; 87081; 87426; 88305; 88311; 93005; 94640; 96365; 96366; 97110; 97116; 97162; 97166; 97530; 97535; 99218; 99251; C1776; J7120; G0378; G0463; J2405

== ENCOUNTER 2021-10-26 13:59 | Inpatient (IN) | payer MEDICARE, SELFPAY ==
[2021-10-26 14:07] VITALS: BP 115/71; PULSE 75; RESP 18; TEMP 36.1; O2SAT 90
[2021-10-26] MEDS: Gabapentin 300 MG Capsule PO (17:34)
[2021-10-26] MEDS: oxyCODONE 5 MG Tablet PO (17:38)
[2021-10-26] MEDS: Menthol/Lanolin/Calamine/Znox 113 GM Tube 1 APPLIC TOPICAL (17:44)
[2021-10-26 17:45] VITALS: BMI 41.4
[2021-10-26] MEDS: Aspirin 81 MG TAB.CHEW PO (18:48)
[2021-10-26] MEDS: Pramipexole Di-HCl 0.5 MG Tablet PO (18:48)
--- NOTE | 2021-10-26 19:41 | HP.PCM_ITS ---
HPI - General General Date of Admission: 10/26/21 HPI Narrative TOREY SUAREZ, is a 76 Female who presents with followin09/19/2021 EKG normal sinus rhythm, left anterior fascicular block, septal infarct, abnormal EKG. 10/23/2021 Dr. Stark performed robotic assisted left total knee arthroplasty. 10/24/2021 Pain well controlled. Aspirin 81mg po q12h x 30 days for DVT prophylaxis. Encouraged incentive spirometry. Weight bearing as tolerated. PT/OT. Dressing change 11/01/2021. Staple removal 11/04/2021. 10/25/2021 Pain well managed. 10/26/2021 Admit to TCU with debility, here for rehabilitation, strengthening, prior to discharge home alone. [facility] Medical History (Updated 10/26/21 @ 19:[address] Rasta Rankin MD) Ambulates with cane Arthritis Bladder disease Bruising Former smoker Gastric reflux History of echocardiogram History of hiatal hernia Hypertension Leg cramps Restless legs Walker as ambulation aid Wears dentures Wears glasses Home Medications amlodipine 2.5 mg PO DAILY 08/04/19 [History Last Taken 10/23/21] calcium carbonate-vitamin D3 1 tab PO 0800 08/04/19 [History Last Taken 10/22/21] cyanocobalamin (vitamin B-12) 1,000 mcg PO DAILY@0800 08/04/19 [History Last Taken 10/22/21] hydrochlorothiazide 25 mg PO DAILY 08/04/19 [History Last Taken 10/22/21] melatonin 5 mg PO QHS PRN 08/04/19 [History Last Taken 10/22/21] metoprolol succinate 100 mg PO DAILY 08/04/19 [History Last Taken 10/23/21] multivitamin with minerals 1 tab PO DAILY 08/04/19 [History Last Taken 10/22/21] omeprazole 40 mg PO DAILY 08/04/19 [History Last Taken 10/23/21] sertraline 100 mg PO DAILY 08/04/19 [History Last Taken 10/23/21] acetaminophen 1,000 mg PO Q8 PRN 06/06/21 [History Last Taken Unknown] tramadol 50 mg PO Q6H PRN PRN 7 Days #28 tab 06/16/21 [Rx Last Taken 10/22/21] pramipexole 0.5 mg PO 1900 09/18/21 [History Last Taken 10/22/21] oxycodone 5 - 10 mg PO Q4H PRN PRN 7 Days #84 tab 10/25/21 [Rx Last Taken Unknown] Mag 64 128 mg PO DAILY 10/26/21 [History Last Taken Unknown] acetaminophen 1,000 mg PO Q8 10/26/21 [History Last Taken Unknown] aspirin 81 mg PO 0800 10/26/21 [History Last Taken Unknown] gabapentin 300 mg PO TIDCM 10/26/21 [History Last Taken Unknown] Allergy/AdvReac Type Severity Reaction Status Date / Time No Known Allergies Allergy Verified 10/23/21 08:15 Family History (Updated 10/26/21 @ 19:[address] Rasta Rankin MD) Father Hypertension Brother Cancer Anemia Surgical History (Updated 10/26/21 @ 19:[address] Rasta Rankin MD) History of back surgery History of eye surgery History of hysterectomy History of laparoscopic cholecystectomy History of repair of rectocele History of total left knee replacement History of total right knee replacement History of tubal ligation Social History household members: none Smoking Status: Former smoker alcohol intake: never substance use type: does not use ROS Constitutional Constitutional: Denies chills, fever(s) or weight gain ENT HEENT: Denies headache(s), nasal congestion or nasal discharge Cardiovascular Cardiovascular: Denies chest pain or palpitations Respiratory/Chest Respiratory/Chest: Denies cough, excessive phlegm production or shortness of breath with exertion Gastrointestinal Gastrointestinal: Denies abdominal pain, nausea or vomiting Genitourinary Genitourinary: Denies dysuria Musculoskeletal Musculoskeletal: Denies joint pain or joint swelling Integumentary Integumentary: Denies rash or wounds Neurologic Neurologic: Denies focal weakness, numbness or tingling Psychiatric Psychiatric: Denies anxiety, auditory hallucinations, depression, homicidal ideation or suicidal ideation Vital Signs Vital Signs Vital Signs: 10/26/21 14:07 Temperature 97.0 F L Temperature Source Temporal Pulse Rate 75 Pulse Rhythm Regular Pulse Strength Normal (2+) Respiratory Rate 18 Respiratory Effort Normal Non-Labored Respiratory Depth Normal Respiratory Pattern Normal Blood Pressure 115/71 Blood Pressure Mean 85 Blood Pressure Position Supine Blood Pressure Location Left Arm Pulse Ox 90 Oxygen Delivery Method Nasal Cannula Oxygen Flow Rate (L/min) 2 Weight Weight: 104.372 kg Body Mass Index (BMI) 41.4 Physical Exam Const alert General Appearance: cooperative HEENT normocephalic Eyes PERRL and EOMs intact bilaterally Neck supple, no JVD and no carotid bruits Resp normal respiratory effort, normal air movement and clear to auscultation bilaterally Cardio regular rate and regular rhythm GI normal to inspection, nondistended, normoactive bowel sounds, non-tender and non-distended Extremity normal capillary refill General Extremity: Negative for edema Skin no rashes or lesions noted General Skin Exam: no breakdown Psych affect normal Appearance: appropriate Assessment & Plan Assessment/Plan (1) Debility: (2) Status post total left knee replacement not using cement: (3) Restless leg syndrome: (4) Neuropathic pain: (5) Hypomagnesemia: (6) Hypertension: (7) Insomnia: (8) Gastroesophageal reflux disease: (9) Depression: (10) Vitamin D deficiency: PLAN: 76 year old female with below past medical history hospitalized for robotic assisted left total knee arthroplasty 10/23/[address] Stark, admitted to TCU with debility, here for rehabilitation, strengthening, prior to discharge home alone. * Debility - PT/OT. * Pain - Tylenol 1000mg q8h, Tramadol 50mg q6h prn pain (1-5), Oxycodone 5-10mg q6h prn pain (5-10). * Bowel - senna/colace 2 tablets bid prn, MOM 30ml po daily prn, Dulcolax 10mg daily prn. * Adult immunization - Administer pneumonia vaccine, flu vaccine, covid19 vaccine as appropriate. * DVT prophylaxis - aspirin 81mg bid thru 11/23/2021. * Hypertension - Metoprolol succinate 100mg daily, HCTZ 25mg daily, Amlodipine 2.5mg daily. * Calcium deficiency - Calcium d 1 tablet daily. * Vitamin B12 deficiency - B12 1000mcg daily. * Neuropathic pain - Gabapentin 300mg tidcm. * Hypomagnesemia - Magnesium chloride 128mg daily. * Insomnia - Melatonin 5mg qhs prn. * Skin irritation - Calmoseptine topical bid. * Nutrition - MVI daily. * GERD - Pantoprazole 40mg daily. * Restless leg syndrome - Mirapex 0.5mg qpm. * Depression - Sertraline 100mg daily, stable chronic superintendent container terminal use, GDR not recommended.
[2021-10-26] MEDS: Acetaminophen 500 MG Tablet 1000 MG PO (21:49)
[2021-10-27] MEDS: oxyCODONE 5 MG Tablet PO ×4 (04:01→23:51)
[2021-10-27] MEDS: Magnesium Chloride 64 MG Delay Rel.Tablet 128 MG PO (04:25)
[2021-10-27] MEDS: hydroCHLOROthiazide 25 MG Tablet PO (04:25)
[2021-10-27] MEDS: Pantoprazole Sodium 40 MG Tablet PO (04:25)
[2021-10-27] MEDS: amLODIPine 2.5 MG Tablet PO (04:25)
[2021-10-27] MEDS: Sertraline 100 MG Tablet PO (04:25)
[2021-10-27] MEDS: Acetaminophen 500 MG Tablet 1000 MG PO ×3 (04:25→21:40)
[2021-10-27 04:34] VITALS: BP 105/47; PULSE 67; O2SAT 95
[2021-10-27 05:49] LABS: Absolute Lymphocyte Count 1.34 X10^3/uL (0.83-4.51); Absolute Neutrophil Count 3.8 X10^3/uL (2.0-7.7); Basophil# 0.04 X10^3/uL; Basophil% 0.7 % (0-1); Eosinophil# 0.17 X10^3/uL; Eosinophils% 2.9 % (0-5); Hematocrit 29.7 % (37-47); Hemoglobin 9.5 g/dL (12.0-15.0); Lymphocyte # 1.34 X10^3/ul (0.83-4.51); Lymphocyte % 22.6 % (19-41); Mean Corpuscular Hgb 27.3 pg (27.0-32.0); Mean Corpuscular Volume 85.3 fL (81-99); Mean Platelet Vol. 9.5 fl (6.2-12.0); Monocyte# 0.57 X10^3/uL; Monocyte% 9.6 % (0-10); NRBC Flagged by Analyzer 0 % (0-5); Neutrophil # 3.77 X10^3/uL (2.7-7.7); Neutrophil % 63.5 % (47-70); Platelet Count 146 K/mm3 (150-450); RBC Distribution Width CV 14.6 % (11.6-14.6); RBC Distribution Width SD 45.3 fl (35.1-43.9); Red Blood Count 3.48 M/mm3 (4.2-5.4); White Blood Count 5.9 K/mm3 (4.4-11.0)
[2021-10-27 06:11] LABS: Anion Gap 4 (5-15); BUN 16 mg/dL (7-18); BUN/Creat Ratio 33.8 RATIO (10-20); Calcium,Total 8.7 mg/dL (8.5-10.1); Chloride 98 mmol/L (98-107); Creatinine, Serum 0.47 mg/dL (0.55-1.02); EST Glomerular Filtration Rate 136 mL/min (>60); Est Glom Filt Rate - Afr Amer 164 mL/min (>60); Estimated Creatinine Clearance 37.85 ml/min; Glucose 90 mg/dL (74-106); Potassium 3.5 mmol/L (3.5-5.1); Sodium Level 134 mmol/L (136-145)
[2021-10-27] MEDS: Multivitamins,Ther W-Minerals Tablet 1 TABLET PO (09:15)
[2021-10-27] MEDS: Aspirin 81 MG TAB.CHEW PO ×2 (09:15→17:14)
[2021-10-27] MEDS: Calcium Carb/Vitamin D 1 TABLET Tablet PO (09:15)
[2021-10-27 09:16] VITALS: BP 119/69; PULSE 62
[2021-10-27] MEDS: Cyanocobalamin 500 MCG Tablet 1000 MCG PO (09:16)
[2021-10-27] MEDS: Metoprolol(XL)Succ 100 MG Tablet PO (09:16)
[2021-10-27] MEDS: Gabapentin 300 MG Capsule PO ×3 (09:20→17:13)
[2021-10-27] MEDS: Menthol/Lanolin/Calamine/Znox 113 GM Tube 1 APPLIC TOPICAL ×2 (09:20→17:14)
[2021-10-27] MEDS: Tuberculin,Purif.prot.deriv. 50 TU/ML Vial 0.1 ML ID (09:21)
--- NOTE | 2021-10-27 09:50 | PHA.CONS1_ITS ---
Progress Note - Pharmacy Subjective: TCU ADMISSION Objective: Allergies No Known Allergies Allergy (Verified 10/23/21 08:15) Current Medications Generic Name Dose Route Start Last Admin Trade Name Cherelle PRN Reason Stop Dose Admin Acetaminophen 1,000 mg 10/26/21 22:00 10/27/21 04:25 Acetaminophen 500 Mg Tablet PO 1,000 mg Q8 JOSE Administration Amlodipine Besylate 2.5 mg 10/27/21 06:00 10/27/21 04:25 Amlodipine 2.5 Mg Tablet PO 2.5 mg DAILY JOSE Administration Aspirin 81 mg 10/26/21 18:00 10/27/21 09:15 Aspirin 81 Mg Tab.Chew PO 11/23/21 23:55 81 mg BIDCM JOSE Administration Bisacodyl 10 mg 10/26/21 19:58 Bisacodyl 5 Mg Tablet PO DAILY PRN Constipation Calamine/Phenol 1 applic 10/26/21 18:00 10/27/21 09:20 Menthol/Lanolin/Calamine/Znox 113 Gm Tube TOPICAL 1 applic BID JOSE Administration Protocol Calcium/Vitamin D 1 tablet 10/27/21 08:00 10/27/21 09:15 Calcium Carb/Vitamin D 1 Tablet Tablet PO 1 tablet 0800 JOSE Administration Cyanocobalamin 1,000 mcg 10/27/21 08:00 10/27/21 09:16 Cyanocobalamin 500 Mcg Tablet PO 1,000 mcg DAILY@0800 JOSE Administration Gabapentin 300 mg 10/26/21 17:45 10/27/21 09:20 Gabapentin 300 Mg Capsule PO 300 mg TIDCM JOSE Administration Hydrochlorothiazide 25 mg 10/27/21 06:00 10/27/21 04:25 Hydrochlorothiazide 25 Mg Tablet PO 25 mg DAILY JOSE Administration Magnesium Chloride 128 mg 10/27/21 06:00 10/27/21 04:25 Magnesium Chloride 64 Mg Delay Rel.Tablet PO 128 mg DAILY JOSE Administration Magnesium Hydroxide 30 ml 10/26/21 19:58 Magnesium Hydroxide 30 Ml Udc PO DAILY PRN Constipation Melatonin 5 mg 10/26/21 22:00 Melatonin 10 Mg Tablet PO QHS PRN Sleep Metoprolol Succinate 100 mg 10/27/21 06:00 10/27/21 09:16 Metoprolol(Xl)Succ 100 Mg Tablet PO 100 mg DAILY JOSE Administration Multivitamins/Minerals 1 tablet 10/27/21 08:00 10/27/21 09:15 Multivitamins,Ther W-Minerals Tablet PO 1 tablet DAILYCM JOSE Administration Nutritional Formula (Lactose Free) 120 ml 10/27/21 07:45 10/27/21 09:20 Ensure Enlive 120 Ml Liquid PO 120 ml TIDCM JOSE Administration Oxycodone HCl 5 - 10 mg 10/26/21 14:46 10/27/21 04:01 Oxycodone 5 Mg Tablet PO 11/02/21 14:47 10 mg Q4H PRN PRN Administration Pain Score 5-10 Pantoprazole Sodium 40 mg 10/27/21 06:00 10/27/21 04:25 Pantoprazole Sodium 40 Mg Tablet PO 40 mg DAILY JOSE Administration Pramipexole Dihydrochloride 0.5 mg 10/26/21 19:00 10/26/21 18:48 Pramipexole Di-Hcl 0.5 Mg Tablet PO 0.5 mg 1900 JOSE Administration Senna/Docusate Sodium 2 tablet 10/26/21 19:58 Senna/Docusate Sodium 1 Tablet PO BID PRN CONSTIPATION Sertraline HCl 100 mg 10/27/21 06:00 10/27/21 04:25 Sertraline 100 Mg Tablet PO 100 mg DAILY JOSE Administration Sodium Chloride 10 - 40 ml 10/26/21 15:17 0.9% Saline Lock 10 Ml Syringe IV UD PRN SALINE FLUSH Tramadol HCl 50 mg 10/26/21 14:46 Tramadol 50 Mg Tablet PO Q6H PRN PRN Pain Score 1-5 Tuberculin PPD 0.1 ml 10/27/21 10:00 10/27/21 09:21 Tuberculin,Purif.Prot.Deriv. 50 Tu/Ml Vial ID 10/27/21 10:01 0.1 ml X1 ONE Administration Tuberculin PPD 0.1 ml 11/03/21 10:00 Tuberculin,Purif.Prot.Deriv. 50 Tu/Ml Vial ID 11/03/21 10:01 X1 ONE Problem List (Last Updated 10/26/21 @ 19:[address] Rasta Rankin MD) Vitamin D deficiency (Acute) Depression (Acute) Gastroesophageal reflux disease (Acute) Insomnia (Acute) Hypertension (Chronic) Hypomagnesemia (Acute) Neuropathic pain (Acute) Restless leg syndrome (Acute) Debility (Acute) Status post total left knee replacement not using cement (Acute) Vital Signs Temp Pulse Resp BP Pulse Ox 97.0 F L 62 18 119/69 95 10/26/21 14:07 10/27/21 09:16 10/26/21 14:07 10/27/21 09:16 10/27/21 04:34 Oxygen Flow Rate (L/min) 3 Oxygen Delivery Method Nasal Cannula Weight: 104.372 kg Body Mass Index (BMI) 41.4 Sodium 134 mmol/L (136-145) L 10/27/21 05:09 Potassium 3.5 mmol/L (3.5-5.1) 10/27/21 05:09 Chloride 98 mmol/L (98-107) 10/27/21 05:09 Carbon Dioxide 32.0 mmol/L (21.0-32.0) 10/27/21 05:09 Anion Gap 4 (5-15) L 10/27/21 05:09 BUN 16 mg/dL (7-18) 10/27/21 05:09 Creatinine 0.47 mg/dL (0.55-1.02) L 10/27/21 05:09 Est GFR (MDRD) Af Amer 164 mL/min (>60) 10/27/21 05:09 Est GFR (MDRD) Non-Af 136 mL/min (>60) 10/27/21 05:09 BUN/Creatinine Ratio 33.8 RATIO (10-20) H 10/27/21 05:09 Glucose 90 mg/dL (74-106) 10/27/21 05:09 Assessment/Plan: 1. Pain: Tylenol 1000mg PO Q8hr, Tramadol 50mg PO Q6h PRN pain 1-5, Oxycodone 5- 10mg PO Q4h PRN pain 6-10. Please continue to monitor for increased/decreased S/S pain, PRN medication requirements, oversedation, decreased respiratory status with PRN narcotic use. - To date, the patient has required zero doses of Tramadol and 2 doses of oxycodone in the past 24hr. The patient has been reporting pain in the knee of 9-10 premedication and pain scores of 0-3 post medication admin. 2. HTN: Norvasc 2.5mg PO Daily, Hydrochlorothiazide 25mg PO Daily, Toprol XL 100mg PO Daily. Please continue to monitor BP (last 119/69), pulse (last 62BPM), renal function (SCr WNL on 10/27/21), electrolytes (WNL on 10/27/21). 3. Post-OP DVT Prophylaxis: Aspirin 81mg PO BIDCM thru 11/23/21. Please continue to monitor H/H (hgb 9.5/ hct 29.7 on 10/27), S/S bleeding/bruising, S/S blood clots given recent surgery. 4. Neuropathic Pain: Gabapentin 300mg PO TIDCM. Please continue to monitor for medication effectiveness, renal function for dosing (last CrCl 67 mL/min using AdjBW), dizziness, drowsiness. This is a Beer's Criteria medication which can increase the risk of falls in patients >65 y/o. Please continue to monitor patient given concomitant narcotic usage, recent hip surgery requiring rehabilit ation, thank you. 5. GERD: Protonix 40mg PO Daily. Please continue to monitor Vitamin B12 levels (currently supplementing), S/S GERD exacerbations. May also encourage non- pharmacologic therapies to help minimize GERD exacerbations in addition to medication therapy. 6. Restless Leg Syndrome: Pramipexole 0.5mg PO daily. Please continue to monitor for dizziness, drowsiness, and insomnia. 7. Insomnia: Melatonin 5mg PO QHS PRN. Please continue to monitor for medication effectiveness. If medication appear ineffective, can consider administering at least 2 hours prior to desired bedtime and encourage non-pharmacologic therapies to encourage healthy sleep. 8. General Wellness: Os-Ruben +D 1 tab PO daily, Cyanocobalamin 1000mcg PO Daily, Magnesium Chloride 128mg PO daily. Multivitamin with minerals 1 tab PO Daily. Please continue to monitor labs as clinically indicated. 9. Bowel: Senna/docusate 2 tab PO BID PRN, Dulcolax 10mg PO Daily PRN, Milk of Magnesia 30mL PO daily PRN. Please continue to monitor for increased/decreased constipation and/or diarrhea. The patient has not had a documented bowel movement since admission yesterday (10/26) . Please continue to monitor. Consider administering PRN medications if patient doesn't produce a bowel movement, especially given PRN narcotic usage. 10. Skin Integrity: Calmoseptine topically BID. Please continue to assess patient for skin irritation/ sores. Psychotropic Medications: Depression: Zoloft 100mg PO daily. Please see note in H/P regarding GDR recommendation, thank you. Medication Irregularities 1. The patient has Vitamin D deficiency listed in past medical history. At present, the patient is not currently on any vitamin D supplement. No labs on are file in EMR. Please consider obtaining a Vitamin D level and treating if clinically indicated, thank you. 2. Gabapentin: This is a Beer's Criteria medication which can increase the risk of falls in patients >65 y/o. Please continue to monitor patient given concomitant narcotic usage, recent hip surgery requiring rehabilitation. At this time no action required as the risk of use does not outweigh the benefit. Date of Note:: 10/27/21
--- NOTE | 2021-10-27 09:52 | CASEMGMT ---
Social Work Met with patient for initial assessment. Introduced self and role. Pt wishes to have dtr, , as primary contact. Discussed code status and MOLST form. Pt confirms DNR-CCA, no intubation. MOLST communicated to , placed in chart. Explained [employer] insurance with NRD 10/27 and continued stay is not guaranteed. The goal is for pt to return home alone. Family to assist with laundry that is on another unit with steps. Pt was independent prior. SW to continue to follow. Sophia Whittington, [employer] TEACHER CLIENT SERVICE SUPERVISOR
[2021-10-27 10:00] VITALS: O2SAT 98
[2021-10-27 16:00] VITALS: BP 137/74; PULSE 57; RESP 14; TEMP 36.6
--- NOTE | 2021-10-27 17:38 | NURSING ---
Pt and family notified of staff member and another pt testing positive for covid.
[2021-10-27] MEDS: Pramipexole Di-HCl 0.5 MG Tablet PO (18:07)
--- NOTE | 2021-10-27 22:33 | PCA ---
patient did not wish to get washed up tonight ast she will be getting a shower in the morning from therapy
[2021-10-28 05:00] VITALS: BP 124/70; PULSE 68
[2021-10-28] MEDS: Sertraline 100 MG Tablet PO (06:59)
[2021-10-28] MEDS: Acetaminophen 500 MG Tablet 1000 MG PO ×3 (06:59→22:53)
[2021-10-28] MEDS: oxyCODONE 5 MG Tablet PO ×4 (07:00→22:53)
[2021-10-28] MEDS: Pantoprazole Sodium 40 MG Tablet PO (07:01)
[2021-10-28] MEDS: amLODIPine 2.5 MG Tablet PO (07:01)
[2021-10-28] MEDS: Magnesium Chloride 64 MG Delay Rel.Tablet 128 MG PO (07:01)
[2021-10-28] MEDS: hydroCHLOROthiazide 25 MG Tablet PO (07:02)
[2021-10-28] MEDS: Menthol/Lanolin/Calamine/Znox 113 GM Tube 1 APPLIC TOPICAL ×2 (07:02→22:54)
[2021-10-28 07:03] VITALS: PULSE 68
[2021-10-28] MEDS: Metoprolol(XL)Succ 100 MG Tablet PO (07:03)
[2021-10-28] MEDS: Aspirin 81 MG TAB.CHEW PO ×2 (08:37→17:46)
[2021-10-28] MEDS: Calcium Carb/Vitamin D 1 TABLET Tablet PO (08:39)
[2021-10-28] MEDS: Multivitamins,Ther W-Minerals Tablet 1 TABLET PO (08:39)
[2021-10-28] MEDS: Cyanocobalamin 500 MCG Tablet 1000 MCG PO (08:39)
[2021-10-28] MEDS: Gabapentin 300 MG Capsule PO ×3 (08:41→17:49)
[2021-10-28 10:00] VITALS: O2SAT 95
--- NOTE | 2021-10-28 14:47 | NURSING ---
PER THERAPY, PT IS OK TO BE UP AB GAGAN AFTER ADL IN MORNING.
[2021-10-28 16:00] VITALS: BP 115/69; PULSE 72; RESP 16; TEMP 36.3; O2SAT 95
[2021-10-28] MEDS: Pramipexole Di-HCl 0.5 MG Tablet PO (18:33)
[2021-10-28] MEDS: Senna/Docusate Sodium 1 Tablet 2 TABLET PO (23:06)
[2021-10-28] MEDS: MELATONIN 10 MG TABLET 5 MG PO (23:07)
[2021-10-29] MEDS: oxyCODONE 5 MG Tablet PO ×5 (03:49→22:38)
[2021-10-29 06:50] VITALS: BP 113/52; PULSE 62; RESP 18; TEMP 36.2; O2SAT 94
[2021-10-29] MEDS: Menthol/Lanolin/Calamine/Znox 113 GM Tube 1 APPLIC TOPICAL ×2 (06:53→17:04)
[2021-10-29] MEDS: amLODIPine 2.5 MG Tablet PO (06:54)
[2021-10-29] MEDS: hydroCHLOROthiazide 25 MG Tablet PO (06:54)
[2021-10-29] MEDS: Magnesium Chloride 64 MG Delay Rel.Tablet 128 MG PO (06:54)
[2021-10-29 06:55] VITALS: BP 113/52; PULSE 62
[2021-10-29] MEDS: Metoprolol(XL)Succ 100 MG Tablet PO (06:55)
[2021-10-29] MEDS: Pantoprazole Sodium 40 MG Tablet PO (06:55)
[2021-10-29] MEDS: Acetaminophen 500 MG Tablet 1000 MG PO ×3 (06:56→22:11)
[2021-10-29] MEDS: Sertraline 100 MG Tablet PO (06:56)
[2021-10-29] MEDS: Calcium Carb/Vitamin D 1 TABLET Tablet PO (08:09)
[2021-10-29] MEDS: Aspirin 81 MG TAB.CHEW PO ×2 (08:09→17:00)
[2021-10-29] MEDS: Multivitamins,Ther W-Minerals Tablet 1 TABLET PO (08:09)
[2021-10-29] MEDS: Cyanocobalamin 500 MCG Tablet 1000 MCG PO (08:10)
[2021-10-29] MEDS: Gabapentin 300 MG Capsule PO ×3 (08:13→17:02)
[2021-10-29 09:50] VITALS: PULSE 58; RESP 18; O2SAT 90
--- NOTE | 2021-10-29 13:09 | NURSING ---
PT STATED TO THIS NURSE THAT SHE FELT LIKE SHE WAS GETTING A BLADDER INFECTION. ASKED PT HER SYMPTOMS,PT STATED ITS JUST IRRITATION DOWN THERE AND I KNOW WHEN LIYA GETTING THEM CAUSE I GET THEM A LOT. RN AND AWARE. NEW ORDERS FOR CLEAN CATCH DUE TO PT REFUSING STRAIGHT CATH OK PER .
[2021-10-29 13:50] LABS: Mucous, Urine 0 SEEN /hpf (<or=2+); Red Blood Cells-Urine 0 SEEN /hpf (0-5); Squamous Epithelial Cells - UA 0 SEEN /hpf (5-10)
[2021-10-29 14:16] LABS: Color, Urine Yellow (Yellow); Glucose, Dipstick Normal (Normal); Ketone-Dipstick Negative (Negative); Leukocyte Esterase-Dipstick 500 /ul (Negative); Nitrite-Dipstick Negative (Negative); Occult Blood-Urine 10 /ul (Negative); Protein-Dipstick Negative (Negative); Urine Bilirubin Dipstick Negative (Negative); Urine Clarity Clear (Clear); Urine Urobilinogen Normal (Normal); Urine pH 6.5 (5.0 - 8.0)
[2021-10-29 14:39] LABS: White Blood Cells 10-25 SEEN /hpf (0-5)
[2021-10-29 14:40] LABS: Bacteria RARE /hpf (None Seen)
[2021-10-29 14:51] VITALS: BP 120/63; PULSE 58; RESP 17; TEMP 36.6; O2SAT 90
[2021-10-29] MEDS: Pramipexole Di-HCl 0.5 MG Tablet PO (18:11)
--- NOTE | 2021-10-29 21:10 | NURSING ---
Contacted via telephone regarding urinalysis results, discussed NKDA, new order received Cefuroxime 500mg BID oral x7days start first dose now
[2021-10-29] MEDS: CEFUROXIME AXETIL 250 MG TABLET 500 MG PO (22:10)
[2021-10-29] MEDS: MELATONIN 10 MG TABLET 5 MG PO (22:34)
[2021-10-30 05:00] VITALS: BP 111/57; PULSE 67
[2021-10-30] MEDS: hydroCHLOROthiazide 25 MG Tablet PO (05:00)
[2021-10-30] MEDS: Metoprolol(XL)Succ 100 MG Tablet PO (05:00)
[2021-10-30] MEDS: amLODIPine 2.5 MG Tablet PO (05:00)
[2021-10-30] MEDS: Magnesium Chloride 64 MG Delay Rel.Tablet 128 MG PO (05:00)
[2021-10-30] MEDS: Acetaminophen 500 MG Tablet 1000 MG PO ×3 (05:00→21:25)
[2021-10-30] MEDS: CEFUROXIME AXETIL 250 MG TABLET 500 MG PO ×2 (05:00→17:44)
[2021-10-30] MEDS: Pantoprazole Sodium 40 MG Tablet PO (05:00)
[2021-10-30] MEDS: Sertraline 100 MG Tablet PO (05:00)
[2021-10-30] MEDS: Menthol/Lanolin/Calamine/Znox 113 GM Tube 1 APPLIC TOPICAL ×2 (05:01→19:26)
[2021-10-30] MEDS: Cyanocobalamin 500 MCG Tablet 1000 MCG PO (07:45)
[2021-10-30] MEDS: Multivitamins,Ther W-Minerals Tablet 1 TABLET PO (07:45)
[2021-10-30] MEDS: Aspirin 81 MG TAB.CHEW PO ×2 (07:45→19:25)
[2021-10-30] MEDS: Calcium Carb/Vitamin D 1 TABLET Tablet PO (07:45)
[2021-10-30] MEDS: Gabapentin 300 MG Capsule PO ×3 (07:45→17:43)
[2021-10-30] MEDS: oxyCODONE 5 MG Tablet PO ×5 (07:49→21:43)
[2021-10-30 15:18] VITALS: BP 107/67; PULSE 72; RESP 14; TEMP 36.9; O2SAT 97
--- NOTE | 2021-10-30 16:04 | CHAPLAIN ---
Type of Pastoral Visit _x__ Initial Visit ___ Follow-up Visit ___ On-call Visit ___ General Patient Visit ___ Spiritual Assessment ___ Family Conference ___ Bereavement ___ Rapid Response ___ Code Blue ___ Other (describe below) Pastoral Care Referral From _x__ Patient ___ Family ___ Nurse ___ Physician ___ Kerfer Machine Operator ___ Submarine Worker ___ Other (describe below) Sacrament/Intervention _x__ Active listening ___ Anointing ___ Jain ___ Bereavement ___ Communion _x__ Leti exploration ___ _x__ Life review _x__ Prayer ___ Reconciliation ___ Sacrament of Sick _x__ Supportive presence ___ Wedding ___ Other (describe below) Pastoral Comments patient was in TCU previously for a back surgery and 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
[2021-10-30] MEDS: Pramipexole Di-HCl 0.5 MG Tablet PO (19:25)
[2021-10-30 22:00] VITALS: RESP 16; O2SAT 96
--- NOTE | 2021-10-31 02:53 | NURSING ---
While getting HS meds, pt stated that she wanted to go home on 10/30/2021. She does not feel she is able to adjust to staying in the hospital and would like to be discharged to her daughter's home and have in-home therapy if needed. This nurse explained that Dr. Rankin would be notified of her desires and that she needs to be evaluated for discharge. Pt stated understanding. Polar pack was applied at HS as an additional intervention for LLE pain and pt was left in a safe position with call light and personal items within reach.
[2021-10-31] MEDS: oxyCODONE 5 MG Tablet PO ×4 (03:43→19:41)
[2021-10-31] MEDS: traMADol 50 MG Tablet PO (05:50)
[2021-10-31 05:58] VITALS: BP 124/64; PULSE 66
[2021-10-31] MEDS: Metoprolol(XL)Succ 100 MG Tablet PO (05:58)
[2021-10-31] MEDS: Magnesium Chloride 64 MG Delay Rel.Tablet 128 MG PO (05:58)
[2021-10-31] MEDS: CEFUROXIME AXETIL 250 MG TABLET 500 MG PO ×2 (05:59→17:18)
[2021-10-31] MEDS: hydroCHLOROthiazide 25 MG Tablet PO (05:59)
[2021-10-31] MEDS: Acetaminophen 500 MG Tablet 1000 MG PO ×3 (05:59→19:40)
[2021-10-31] MEDS: Sertraline 100 MG Tablet PO (06:00)
[2021-10-31] MEDS: Pantoprazole Sodium 40 MG Tablet PO (06:00)
[2021-10-31] MEDS: amLODIPine 2.5 MG Tablet PO (06:00)
[2021-10-31] MEDS: Menthol/Lanolin/Calamine/Znox 113 GM Tube 1 APPLIC TOPICAL ×2 (06:07→17:18)
[2021-10-31] MEDS: Calcium Carb/Vitamin D 1 TABLET Tablet PO (08:04)
[2021-10-31] MEDS: Multivitamins,Ther W-Minerals Tablet 1 TABLET PO (08:04)
[2021-10-31] MEDS: Aspirin 81 MG TAB.CHEW PO ×2 (08:04→17:18)
[2021-10-31] MEDS: Cyanocobalamin 500 MCG Tablet 1000 MCG PO (08:04)
[2021-10-31] MEDS: Gabapentin 300 MG Capsule PO ×3 (08:06→17:18)
--- NOTE | 2021-10-31 10:36 | CASEMGMT ---
Social Work Insurance issued LCD 11/04, DC 11/05. Spoke with pt and pt requesting to DC sooner - 11/01. IDT agreeable. Pt will get dressing removed tomorrow and scheduled to get ariana removed 11/04. However, pt stated she will call Lucy Ruiz to get ariana removed. Nursing updated. Pt will DC to dtr's house. Pt requesting [facility] PT/OT/SN. Referral made. no DME needs. Dtr to transport. Plan: DC to dtr's house 11/01, [facility] PT/OT/SN DEVANG Webb
--- NOTE | 2021-10-31 11:00 | RAD.NOTE ---
Pt to d/c tomorrow, remove dressing before leaving but pt states she will call natividad chapin to schedule an appointment to get her ariana removed.
[2021-10-31 16:00] VITALS: BP 111/71; PULSE 60; RESP 18; TEMP 36.4; O2SAT 95
--- NOTE | 2021-10-31 16:46 | CASEMGMT ---
Social Work BIMS and PHQ-9 completed for MDS assessment. Sophia Whittington, METAL TRADES INSTRUCTOR PILOT PLANT SUPERVISOR
[2021-10-31] MEDS: Pramipexole Di-HCl 0.5 MG Tablet PO (17:19)
--- NOTE | 2021-10-31 21:08 | DS.PCM_ITS ---
Providers Date of Admission: 10/26/21 Primary Care Physician: Dr. Cheryl Russell DO Reason For Visit: LEFT TOTAL KNEE/ROBOT ASSIST Diagnosis Discharge Diagnosis (1) Debility: Status: Acute Code(s): R53.81 - Other malaise (2) Status post total left knee replacement not using cement: Status: Acute Code(s): Z96.652 - Presence of left artificial knee joint (3) Restless leg syndrome: Status: Acute Code(s): G25.81 - Restless legs syndrome (4) Neuropathic pain: Status: Acute Code(s): M79.2 - Neuralgia and neuritis, unspecified (5) Hypomagnesemia: Status: Acute Code(s): E83.42 - Hypomagnesemia (6) Hypertension: Status: Chronic Code(s): I10 - Essential (primary) hypertension (7) Insomnia: Status: Acute Code(s): G47.00 - Insomnia, unspecified (8) Gastroesophageal reflux disease: Status: Acute Code(s): K21.9 - Gastro-esophageal reflux disease without esophagitis (9) Depression: Status: Acute Code(s): F32.A - Depression, unspecified (10) Vitamin D deficiency: Status: Acute Code(s): E55.9 - Vitamin D deficiency, unspecified Medications at Discharge Home Medications amlodipine 2.5 mg PO DAILY 08/04/19 calcium carbonate-vitamin D3 1 tab PO 0800 08/04/19 cyanocobalamin (vitamin B-12) 1,000 mcg PO DAILY@0800 08/04/19 hydrochlorothiazide 25 mg PO DAILY 08/04/19 melatonin 5 mg PO QHS PRN 08/04/19 metoprolol succinate 100 mg PO DAILY 08/04/19 multivitamin with minerals 1 tab PO DAILY 08/04/19 omeprazole 40 mg PO DAILY 08/04/19 sertraline 100 mg PO DAILY 08/04/19 acetaminophen 1,000 mg PO Q8 PRN 06/06/21 pramipexole 0.5 mg PO 1900 09/18/21 Mag 64 128 mg PO DAILY 10/26/21 acetaminophen 1,000 mg PO Q8 10/26/21 gabapentin 300 mg PO TIDCM 10/26/21 aspirin 81 mg PO BIDCM #0 tab 05/24/22 oxycodone 5 - 10 mg PO Q4H PRN PRN 3 Days #36 tab 10/31/21 tramadol 50 mg PO Q6H PRN PRN 3 Days #12 tab 10/31/21 Hospital Course Operations total knee replacement (Left.) Procedures None Summary of Care Provided Minutes Spent on Discharge: 35 Hospital Course: 76 year old female with below past medical history hospitalized for robotic assisted left total knee arthroplasty 10/23/[address] Stark, admitted to TCU with debility, here for rehabilitation, strengthening, prior to discharge home alone. Discharge to daughter's house 11/01/2021, [facility] PT/OT/SN, No durable medical equipment. Physical Exam Const alert General Appearance: cooperative HEENT normocephalic Eyes PERRL and EOMs intact bilaterally Neck supple, no JVD and no carotid bruits Resp normal respiratory effort, normal air movement and clear to auscultation bilaterally Cardio regular rate and regular rhythm GI normal to inspection, nondistended, normoactive bowel sounds, non-tender and non-distended Extremity normal capillary refill General Extremity: Negative for edema Skin no rashes or lesions noted General Skin Exam: no breakdown Psych affect normal Appearance: appropriate Weight / BMI Weight Weight: 103.986 kg Body Mass Index (BMI) 41.4 ABG / Lab / Microbiology Data Result Diagrams: 10/27/21 05:09 10/27/21 05:09 Microbiology: Microbiology 10/29/21 13:30 Urine, Clean Catch Urine Culture - Final Presumptive E. coli Mixed Gram Positive Organisms D/C Instructions Discharge Diet: No restrictions Discharge Activity: Return to Normal Activity, May Shower and Use Walker Weight Bearing Status: Weight bearing as tolerated Call your doctor if you observe: Fever of 101 or Higher, Inability to urinate, Inability to have a bowel movement, Shortness of breath, Dizziness, Fainting spells, Swelling in the ankles, Chest pain and Uncontrolled pain Additional Instructions: Discharge to daughter's house 11/01/2021, [facility] PT/OT/SN, No durable medical equipment. Please Follow Up With: Eliseo Guerra PA-C When: As scheduled. Meaningful Use Info Meaningful Use Diagnoses (Choose all that apply): None applicable Discharge Plan Admission Admit Date/Time: 10/26/21 13:59 Primary Reason for Your Visit: Debility. Attending Provider: Rasta Rankin Chi Primary Care Provider: Cheryl Russell Instructions Additional Instructions / Restrictions: Discharge to daughter's house 11/01/2021, [facility] PT/OT/SN, No durable medical equipment. Discharge Orders/Prescriptions Prescriptions: New tramadol 50 mg Tablet 50 mg PO Q6H PRN PRN (Reason: Pain Score 1-5) 3 Days Qty: 12 RF: 0 aspirin 81 mg Tablet,Chewable 81 mg PO BIDCM Qty: 0 RF: 0 oxycodone 5 mg Tablet 5 - 10 mg PO Q4H PRN PRN (Reason: Pain Score 6-10) 3 Days Qty: 36 RF: 0 Continued metoprolol succinate 100 MG tablet extended release 24 hr 100 mg PO DAILY RF: 0 sertraline 100 MG tablet 100 mg PO DAILY RF: 0 amlodipine 2.5 MG tablet 2.5 mg PO DAILY RF: 0 omeprazole 40 MG capsule,delayed release(DR/EC) 40 mg PO DAILY RF: 0 cyanocobalamin (vitamin B-12) 500 MCG tablet 1,000 mcg PO DAILY@0800 RF: 0 hydrochlorothiazide 25 MG tablet 25 mg PO DAILY RF: 0 multivitamin with minerals 1 EACH tablet 1 tab PO DAILY RF: 0 calcium carbonate-vitamin D3 1 EACH tablet 1 tab PO 0800 RF: 0 melatonin 5 MG tablet 5 mg PO QHS PRN (Reason: Sleep) RF: 0 acetaminophen 500 MG tablet 1,000 mg PO Q8 PRN (Reason: Pain) RF: 0 pramipexole 0.25 mg tablet 0.5 mg PO 1900 RF: 0 acetaminophen 500 mg tablet 1,000 mg PO Q8 RF: 0 gabapentin 300 mg capsule 300 mg PO TIDCM RF: 0 Mag 64 64 mg tablet,delayed release (DR/EC) 128 mg PO DAILY RF: 0 Discontinued tramadol 50 mg Tablet 50 mg PO Q6H PRN PRN (Reason: Pain Score 1-5) 7 Days Qty: 28 RF: 0 oxycodone 5 mg Tablet 5 - 10 mg PO Q4H PRN PRN (Reason: Pain Score 4-10) 7 Days Qty: 84 RF: 0 aspirin 81 mg tablet,chewable 81 mg PO 0800 RF: 0 Referrals / Follow Up: Eliseo Guerra [Other] - 10/23/22 1:45 pm Andree Garcia [Other] - 11/03/21 1:30 pm Cheryl Russell DO [Primary Care Provider] - Disposition Disposition (needs filled in before D/C Order can be placed): Home Health Service
[2021-11-01 05:00] VITALS: BP 120/40; PULSE 65; RESP 16; TEMP 36.3; O2SAT 98
[2021-11-01] MEDS: oxyCODONE 5 MG Tablet PO ×2 (05:06→09:51)
[2021-11-01] MEDS: hydroCHLOROthiazide 25 MG Tablet PO (05:07)
[2021-11-01] MEDS: Magnesium Chloride 64 MG Delay Rel.Tablet 128 MG PO (05:07)
[2021-11-01] MEDS: Pantoprazole Sodium 40 MG Tablet PO (05:07)
[2021-11-01] MEDS: amLODIPine 2.5 MG Tablet PO (05:07)
[2021-11-01] MEDS: CEFUROXIME AXETIL 250 MG TABLET 500 MG PO (05:07)
[2021-11-01] MEDS: Acetaminophen 500 MG Tablet 1000 MG PO (05:08)
[2021-11-01] MEDS: Sertraline 100 MG Tablet PO (05:08)
[2021-11-01 05:21] VITALS: BP 129/40; PULSE 65
[2021-11-01] MEDS: Metoprolol(XL)Succ 100 MG Tablet PO (05:21)
[2021-11-01] MEDS: Menthol/Lanolin/Calamine/Znox 113 GM Tube 1 APPLIC TOPICAL (06:00)
[2021-11-01] MEDS: Calcium Carb/Vitamin D 1 TABLET Tablet PO (07:46)
[2021-11-01] MEDS: Cyanocobalamin 500 MCG Tablet 1000 MCG PO (07:47)
[2021-11-01] MEDS: Aspirin 81 MG TAB.CHEW PO (07:47)
[2021-11-01] MEDS: Multivitamins,Ther W-Minerals Tablet 1 TABLET PO (07:47)
[2021-11-01] MEDS: Gabapentin 300 MG Capsule PO (07:50)
[2021-11-01 09:40] VITALS: PULSE 70; RESP 18; O2SAT 97
[2021-11-01 09:41] VITALS: BP 101/76; PULSE 73; RESP 18; TEMP 36.4; O2SAT 97
--- NOTE | 2021-11-08 14:56 | MDS.RN ---
Information for the mds was obtained from review of the clinical record, interview of resident, staff, and direct observation of resident's care.
== END 2021-11-01 11:04 | disposition home health service (06) | DRG 561 ==
PROVIDERS: Admitting Provider Family Medicine Geriatric Medicine; PCP Internal Medicine; Visit Provider Family Medicine Geriatric Medicine
DX: Z47.1 Aftercare following joint replacement surgery (principal); E53.8 Deficiency of other specified B group vitamins; I10 Essential (primary) hypertension; G62.9 Polyneuropathy, unspecified; G25.81 Restless legs syndrome; K21.9 Gastro-esophageal reflux disease without esophagitis; E55.9 Vitamin D deficiency, unspecified; F32.A Depression, unspecified; Z96.652 Presence of left artificial knee joint; Z87.891 Personal history of nicotine dependence; Z79.899 Other long term (current) drug therapy; Z79.82 Long term (current) use of aspirin
CPT/HCPCS: 36415; 80048; 81001; 85025; 87086; 87088; 97110; 97116; 97162; 97166; 97530; 97535; 97802

== ENCOUNTER 2022-01-19 16:00 | Outpatient (RCR) | payer MEDICARE, SELFPAY ==
--- NOTE | 2021-12-22 13:03 | HP.PTEVAL_ITS ---
Patient's Visit Information TOREY SUAREZ is a 76 year old F referred to Physical Therapy by Dr. Louie Stark, DO with a diagnosis of PRESENTS OF LEFT ARIFICAIL KNEE JOINT,INTERVERTBAL DISC DEGENERATION,LUMBAR. Date of Evaluation: 12/22/21 Physical Therapist: Sylvester Beaulieu, PT, Cert MDT, OCS - Visit Plan Frequency: 2x /Week Duration: 4 Weeks Plan: PT INTERVETION STRENGTHNEING QUADS/HAMS/HIP ,FUNCTIONAL STRENGTHNEING ,DLS FOR HEP, GAIT/BALANCE PROGRAM ,NUSTEP AND CP - Subjective This 76 y/o female presents to physical therapy with left TKR . Patient underwent s/p TKR October at [facility] done by Dr. Stark . Patient was transferred to TCU for 8 days on 10/25/21 then d/c to home with fww on 11/01/21 with [facility] PT for~ 3weeks. Patient weaned to cane ~ in month ago. Patient started back pain ~ 2weeks . Patient back pain worse with walking ,standing but uses fww for extended distances . Alleviating factors sitting and resting. Patient lives in 1 apartment no steps . Patient has tub shower set, grab bars with seat. Patient has some swelling and and no pain. Patient also right TKR May 2021 ,lumbar fusion . Patient also had prehab. Patient goal return to activity no cane with gait and stairs.MEDS tramadol ,gabapentin. SOCIAL: single. VOCATION: rtired - Pain Left Back Pain Intensity (Out of 10): 5 Pain Intensity Range: 10 - Objective POSTURE: mild forward posture. GAIT: reciprocal pattern with cane 2 point gait. BALANCE: good - with cane. NEURO: denies paresthesia/tingling. INSCION: well approximate. AROM: supine knee flexion left 0-120 degrees. MMT( [employer]) : quads 31.2,hamstrings 27.8,hip flexion 27.8 ,ankle 4/5. LUMBAR ROM: flexion WFL ,extension min loss ,side glides min loss. FLEXABILITY: hamstrings WFL. STAIRS: one steps at time with rails - Special Tests L/S Slump test left side: Negative L/S Slump test right side: Negative L/S Left Straight Leg Raise: Negative L/S Right Straight Leg Raise: Negative - Balance/Special Test Scores Lower Extremity Functional Score: 43 TUG Test Time Seconds: 10.6 WOMAC Total Score: 16 WOMAC Percentatge: 82.6100 - Goals Goal 1:: I with HEP and gym ex's Goal Time Frame: 4-6 Weeks Goal 2:: Patient to normalize gait without device community distances Goal Time Frame: 4-6 Weeks Goal 3:: Patient to improve peak force quads/hams by b5-10 to improve gait. Goal Time Frame: 4-6 Weeks Goal 4:: Patient to improve WOMAC score by less than 5-10 points to improve QOL Goal Time Frame: 4-6 Weeks Goal 5:: Patient able to improve LFES score by 5-10 points to improve QOL Goal Time Frame: 4-6 Weeks Goal 6:: Patient to improve stairs alternating stairs with raisl Goal Time Frame: 4-6 Weeks - Rehabilitation Potential Physical Therapy Diagnosis: Patient underwent s/p left TKR with decrease gait ,stairs without device and weakness along with back with causes deficits function thus benefit from skilled PT Rehabilitation Potential: Good - Anticipated Interventions Patient/Client Instruction: Educate patient on: Condition, Plan of Care For the Purpose of:: To decrease pain, To decrease swelling/inflammation, To improve muscle performance and motor function, To improve ability to perform ADL's, To increase tolerance to activity/condition/position, To improve ability of physical actions for home/community/work/leisure, To improve health of tissue, To decrease soft tissue restriction, To improve endurance, To improve balance, To improve tolerance to ADL's Therapeutic Exercise to Include: Strength training, Endurance training, Balance training, Body mechanics, Postural training, Flexibilty training, Gait and locomotor training, Active ROM, Sabino Exercises Comment: QUADS/HAMS For the Purpose of:: To decrease pain, To increase ROM, To improve muscle performance and motor function, To improve ability to perform ADL's, To improve performance and independence with ADL's, To increase flexibility/ROM, To improve endurance, To improve balance, To improve tolerance to ADL's Thank you for the opportunity to evaluate your patient. For Medicare and Medicare HMO plans, please review the plan of care and approve it. It will need to be FAXED BACK to us at [phone] for Medicare purposes. For Medicare only, by signing this I certify the plan of care. Please let me know if there are questions or concerns regarding this plan of care. Physician Signature: Date:
--- NOTE | 2022-02-14 10:38 | HP.PT.NRP ---
TOREY SUAREZ was seen in my office for initial evaluation on 12/22/21. The following Plan of Care was established for this patient: Initial Frequency: 2x /Week Initial Duration: 4 Weeks Patient/Client Instruction: Educate patient on: Condition, Plan of Care For the Purpose of:: To decrease pain, To decrease swelling/inflammation, To improve muscle performance and motor function, To improve ability to perform ADL's, To increase tolerance to activity/condition/position, To improve ability of physical actions for home/community/work/leisure, To improve health of tissue, To decrease soft tissue restriction, To improve endurance, To improve balance, To improve tolerance to ADL's Therapeutic Exercise to Include: Strength training, Endurance training, Balance training, Body mechanics, Postural training, Flexibilty training, Gait and locomotor training, Active ROM, Sabino Exercises For the Purpose of:: To decrease pain, To increase ROM, To improve muscle performance and motor function, To improve ability to perform ADL's, To improve performance and independence with ADL's, To increase flexibility/ROM, To improve endurance, To improve balance, To improve tolerance to ADL's This patient was last seen in our office . Pertinent comments regarding their Physical therapy will appear below: Patient had TKR doing well meet goals with ROM and strength thus d/c At this point I will be discontinuing this patient from physical therapy. I would be happy to see this patient again in the future if found appropriate by the physician. Thank you! Sylvester Beaulieu, PT, Cert MDT, OCS Balance/Gait/Functional tests - Balance/Special Test Scores Lower Extremity Functional Score: 50 TUG Test Time Seconds: 10.6 Tug Test: <20 sec.=mostly independent WOMAC Total Score: 16 WOMAC Percentage: 82.6100
== END 2022-01-19 19:00 | disposition home or self-care (01) ==
LOC: PT 16:00
PROVIDERS: PCP Internal Medicine; Referring Provider Orthopaedic Surgery; Visit Provider Orthopaedic Surgery
DX: M51.36 Other intervertebral disc degeneration, lumbar region (principal); Z47.1 Aftercare following joint replacement surgery; Z96.652 Presence of left artificial knee joint
CPT/HCPCS: 97110; 97162

== ENCOUNTER 2022-01-26 15:47 | Observation (INO) | payer MEDICARE, SELFPAY ==
[2022-01-26 15:48] VITALS: BP 160/98; PULSE 61; RESP 16; TEMP 36.6; O2SAT 97; BMI 37.0
--- NOTE | 2022-01-26 16:32 | EX.ED.DYSGE1 ---
HPI History of Present Illness Chief Complaint: Lower Extremity Injury Informant: patient Narrative Narrative: Patient fell 2 or 3 weeks ago, injured her right knee. Found to have a patella fracture. She had a total knee arthroplasty on that 1 this past May, she had the left knee replaced this past October. She has been doing rehab for the left knee. She saw orthopedics today in follow-up, she has been having worsening pain all week this week due to mainly getting up from seated position which is really painful. She has been wearing the brace and using her cane and Rollator when helpful. She was sent to the ER to be admitted for TCU/rehab so that she does not fall and injure herself further while rehabbing. [facility] Medical History Ambulates with cane Arthritis Bladder disease Bruising Former smoker Gastric reflux History of echocardiogram History of hiatal hernia Hypertension Leg cramps Restless legs Walker as ambulation aid Wears dentures Wears glasses Home Medications amlodipine 2.5 mg tablet 2.5 mg PO DAILY Heart 08/04/19 [History Last Taken 01/26/22] calcium carbonate-vitamin D3 600 mg-125 unit tablet 1 tab PO 0800 Supplement 08/04/19 [History Last Taken 01/26/22] cyanocobalamin (vitamin B-12) 500 mcg tablet 1,000 mcg PO DAILY@0800 supplement 08/04/19 [History Last Taken 01/26/22] hydrochlorothiazide 25 mg tablet 25 mg PO DAILY Heart 08/04/19 [History Last Taken 01/26/22] melatonin 5 mg tablet 10 mg PO QHS PRN Sleep 08/04/19 [History Last Taken 01/25/22] multivitamin with minerals 1 tab PO DAILY supplement 08/04/19 [History Last Taken 01/26/22] omeprazole 40 mg capsule,delayed release 40 mg PO DAILY GERD 08/04/19 [History Last Taken 01/26/22] sertraline 100 mg tablet 100 mg PO DAILY depression 08/04/19 [History Last Taken 01/26/22] acetaminophen 500 mg tablet 1,000 mg PO Q8H PRN Pain 06/06/21 [History Last Taken 01/26/22] gabapentin 300 mg capsule 300 mg PO TIDCM pain 10/26/21 [History Last Taken 01/26/22] magnesium chloride 64 mg (magnesium chloride) tablet,delayed release (Mag 64) 64 mg PO DAILY supplement 10/26/21 [History Last Taken 01/26/22] oxycodone 5 mg tablet 5 - 10 mg PO Q4H PRN PRN Pain Score 6-10 3 days #36 tabs 10/31/21 [Rx Last Taken 01/26/22] tramadol 50 mg tablet 50 mg PO Q6H PRN PRN Pain Score 1-5 3 days #12 tabs 10/31/21 [Rx Last Taken 01/25/22] cholecalciferol (vitamin D3) 25 mcg (1,000 unit) tablet 25 mcg PO DAILY SUPPLEMENT 01/26/22 [History Last Taken 01/26/22] metoprolol succinate 50 mg tablet,extended release 24 hr 100 mg PO DAILY HEART 01/26/22 [History Last Taken 01/26/22] pramipexole 0.5 mg tablet 0.5 mg PO QHS RLS 01/26/22 [History Last Taken 01/25/22] Allergy/AdvReac Type Severity Reaction Status Date / Time No Known Allergies Allergy Verified 01/26/22 15:51 Family History (Updated 10/26/21 @ 19:[address] Rasta Rankin MD) Father Hypertension Brother Cancer Anemia Surgical History History of back surgery History of eye surgery History of hysterectomy History of laparoscopic cholecystectomy History of repair of rectocele History of total left knee replacement History of total right knee replacement History of tubal ligation Social History household members: none Smoking Status: Former smoker alcohol intake: never substance use type: does not use ROS ROS ED Constitutional Constitutional ED: Denies chills or fever(s) Eyes Eyes: Denies change in vision or diplopia ENT ENT ED: Denies rhinorrhea or sore throat Cardiovascular Cardiovascular: Denies chest pain or palpitations Respiratory/Chest Respiratory/Chest: Denies cough or dyspnea Gastrointestinal Gastrointestinal: Denies abdominal pain, diarrhea, nausea or vomiting Genitourinary Genitourinary ED: Denies dysuria or hematuria Musculoskeletal Musculoskeletal: Reports extremity pain; Denies neck pain Integumentary Denies Abrasions, rash or wounds Neurologic Neurologic: Denies paresthesias or weakness Psychiatric Psychiatric: Denies anxiety or suicidal thoughts EXAM Physical Exam Const Vital Signs: 01/26/22 15:48 Temperature 97.8 F Temperature Source Temporal Pulse Rate 61 Respiratory Rate 16 Blood Pressure 160/98 H Blood Pressure Mean 118 Pulse Ox 97 Oxygen Delivery Method Room Air Positive well nourished, well developed and obese General Appearance ED: well developed and NAD Nutritional Appearance: obese HEENT Reports moist mucous membranes normocephalic and atraumatic Eyes PERRL and EOMs intact bilaterally Neck full ROM and supple Resp normal respiratory effort and clear to auscultation bilaterally Cardio regular rate, regular rhythm and no murmurs GI non-tender and non-distended Auscultation: normoactive bowel sounds Palpation: soft Back/Spine normal ROM and normal to inspection General Back: other FROM Extremity normal to inspection Extremity Narrative: Mildly tender right anterior knee/patella. No deformities. In brace, full extension. Neurovascularly intact distally. General Extremety ED: Yes tenderness; Negative for edema or pulses abnormal General Extremity: Negative for edema or pulses abnormal Neuro oriented x3, no focal motor deficits and no sensory deficits noted Sensorium / Orientation: alert Motor Exam: strength 5/5 throughout Psych mental status grossly normal and thought process normal Skin no wounds Rashes: no rashes MDM MDM MDM Narrative Medical decision making narrative: Discussed with hospitalist for admission for placement/rehab. Lab Data Attestation: I reviewed the patient's lab results. Labs: Laboratory Results - last 24 hr 01/26/22 01/26/22 16:50 16:50 WBC 6.2 RBC 4.99 Hgb 13.1 Hct 41.5 MCV 83.2 MCH 26.3 L MCHC 31.6 L RDW Std Deviation 44.3 H RDW Coeff of Rufino 14.6 Plt Count 166 MPV 9.3 Immature Gran % (Auto) 0.200 Neut % (Auto) 58.6 Lymph % (Auto) 29.0 Brantley % (Auto) 9.2 Eos % (Auto) 2.4 Baso % (Auto) 0.6 Absolute Neuts (auto) 3.6 Absolute Lymphs (auto) 1.79 Nucleated RBC % 0 Sodium 138 Potassium 3.4 L Chloride 103 Carbon Dioxide 30.0 Anion Gap 5 BUN 13 Creatinine 0.64 Estim Creat Clear Calc 39.59 Est GFR (MDRD) Af Amer 116 Est GFR (MDRD) Non-Af 96 BUN/Creatinine Ratio 20.3 H Glucose 86 Calcium 9.9 Discharge Plan Dx/Rx/DC Orders Clinical Impression: Closed fracture of right patella, Status post total left knee replacement not using cement, At high risk for falls Disposition Disposition: Acute Care Hospital [facility]
[2022-01-26 17:19] LABS: Absolute Lymphocyte Count 1.79 X10^3/uL (0.83-4.51); Absolute Neutrophil Count 3.6 X10^3/uL (2.0-7.7); Basophil# 0.04 X10^3/uL; Basophil% 0.6 % (0-1); Eosinophil# 0.15 X10^3/uL; Eosinophils% 2.4 % (0-5); Hematocrit 41.5 % (37-47); Hemoglobin 13.1 g/dL (12.0-15.0); Lymphocyte # 1.79 X10^3/ul (0.83-4.51); Mean Corp Hgb Conc 31.6 g/dL (32-36); Mean Corpuscular Hgb 26.3 pg (27.0-32.0); Mean Corpuscular Volume 83.2 fL (81-99); Mean Platelet Vol. 9.3 fl (6.2-12.0); Monocyte# 0.57 X10^3/uL; Monocyte% 9.2 % (0-10); NRBC Flagged by Analyzer 0 % (0-5); Neutrophil # 3.62 X10^3/uL (2.7-7.7); Neutrophil % 58.6 % (47-70); Platelet Count 166 K/mm3 (150-450); RBC Distribution Width CV 14.6 % (11.6-14.6); RBC Distribution Width SD 44.3 fl (35.1-43.9); Red Blood Count 4.99 M/mm3 (4.2-5.4); White Blood Count 6.2 K/mm3 (4.4-11.0)
[2022-01-26 17:22] LABS: Anion Gap 5 (5-15); BUN 13 mg/dL (7-18); BUN/Creat Ratio 20.3 RATIO (10-20); Calcium,Total 9.9 mg/dL (8.5-10.1); Chloride 103 mmol/L (98-107); Creatinine, Serum 0.64 mg/dL (0.55-1.02); EST Glomerular Filtration Rate 96 mL/min (>60); Est Glom Filt Rate - Afr Amer 116 mL/min (>60); Estimated Creatinine Clearance 39.59 ml/min; Glucose 86 mg/dL (74-106); Potassium 3.4 mmol/L (3.5-5.1); Sodium Level 138 mmol/L (136-145)
--- NOTE | 2022-01-26 19:33 | PCM.HP.STD ---
HPI - General General Date of Admission: 01/26/22 Date of Service: 01/26/22 Chief Complaint: right knee pain HPI Narrative TOREY SUAREZ, is a 76 F with a significant history of hypertension; and former tobacco abuse who presents with pain in her right knee. The pain is severe; not radiating. The pain worsens when she gets up from a sitting position or when she tries to get into her car. Of note patient fell 2 to 3 weeks ago and landed on her right side. Patient had a total knee arthroplasty of the right knee past May. She also had left knee arthroplasty October 2021. She also has mild chronic pain in her left knee. Patient was sent by her orthopedic surgeon for possible rehabilitation at the transitional care unit of [facility]. Patient has been at the transitional care unit a couple of times. [facility] Medical History Ambulates with cane Arthritis Bladder disease Bruising Former smoker Gastric reflux History of echocardiogram History of hiatal hernia Hypertension Leg cramps Restless legs Walker as ambulation aid Wears dentures Wears glasses Home Medications amlodipine 2.5 mg tablet 2.5 mg PO DAILY Heart 08/04/19 [History Last Taken 01/26/22] calcium carbonate-vitamin D3 600 mg-125 unit tablet 1 tab PO 0800 Supplement 08/04/19 [History Last Taken 01/26/22] cyanocobalamin (vitamin B-12) 500 mcg tablet 1,000 mcg PO DAILY@0800 supplement 08/04/19 [History Last Taken 01/26/22] hydrochlorothiazide 25 mg tablet 25 mg PO DAILY Heart 08/04/19 [History Last Taken 01/26/22] melatonin 5 mg tablet 10 mg PO QHS PRN Sleep 08/04/19 [History Last Taken 01/25/22] multivitamin with minerals 1 tab PO DAILY supplement 08/04/19 [History Last Taken 01/26/22] omeprazole 40 mg capsule,delayed release 40 mg PO DAILY GERD 08/04/19 [History Last Taken 01/26/22] sertraline 100 mg tablet 100 mg PO DAILY depression 08/04/19 [History Last Taken 01/26/22] acetaminophen 500 mg tablet 1,000 mg PO Q8H PRN Pain 06/06/21 [History Last Taken 01/26/22] gabapentin 300 mg capsule 300 mg PO TIDCM pain 10/26/21 [History Last Taken 01/26/22] magnesium chloride 64 mg (magnesium chloride) tablet,delayed release (Mag 64) 64 mg PO DAILY supplement 10/26/21 [History Last Taken 01/26/22] oxycodone 5 mg tablet 5 - 10 mg PO Q4H PRN PRN Pain Score 6-10 3 days #36 tabs 10/31/21 [Rx Last Taken 01/26/22] tramadol 50 mg tablet 50 mg PO Q6H PRN PRN Pain Score 1-5 3 days #12 tabs 10/31/21 [Rx Last Taken 01/25/22] cholecalciferol (vitamin D3) 25 mcg (1,000 unit) tablet 25 mcg PO DAILY SUPPLEMENT 01/26/22 [History Last Taken 01/26/22] metoprolol succinate 50 mg tablet,extended release 24 hr 100 mg PO DAILY HEART 01/26/22 [History Last Taken 01/26/22] pramipexole 0.5 mg tablet 0.5 mg PO QHS RLS 01/26/22 [History Last Taken 01/25/22] Allergy/AdvReac Type Severity Reaction Status Date / Time No Known Allergies Allergy Verified 01/26/22 15:51 Family History Father Hypertension Brother Cancer Anemia Surgical History History of back surgery History of eye surgery History of hysterectomy History of laparoscopic cholecystectomy History of repair of rectocele History of total left knee replacement History of total right knee replacement History of tubal ligation Social History household members: none Smoking Status: Former smoker alcohol intake: never substance use type: does not use ROS ROS Narrative Pertinent positives and pertinent negatives as noted in HPI. All other systems were reviewed and are negative Vital Signs Vital Signs Vital Signs: 01/26/22 15:48 Temperature 97.8 F Temperature Source Temporal Pulse Rate 61 Respiratory Rate 16 Blood Pressure 160/98 H Blood Pressure Mean 118 Pulse Ox 97 Oxygen Delivery Method Room Air Weight Weight: 94.71 kg Body Mass Index (BMI) 37.0 Physical Exam Narrative Physical exam: General: Well-nourished, well-developed. Head: Normocephalic, atraumatic, no tenderness Eyes: Vision is grossly intact. EOMI ENT, no trauma, moist mucous membranes, no rhinorrhea Neck: Nontender, full range of motion CVS: Regular rate and rhythm. S1-S2 present. No murmur, gallop or rub. Respiratory : clear to auscultation bilaterally, chest wall nontender, no wheezing Abdomen: Soft, nontender, nondistended, normal bowel sounds, no masses : Deferred Back: Nontender, no CVA tenderness, no midline spinal tenderness, deformities, step-offs Extremities: Right knee in brace, tender. Left knee nontender Skin: Normal color, no trauma, abrasions Neuro: Alert, oriented, cranial nerves II through XII grossly intact. Psychiatry: Normal mood. Normal affect. Not depressed. Not anxious. Results Lab / Micro Data Result Diagrams: 01/26/22 16:50 01/26/22 16:50 Labs: Laboratory Results - last 24 hr 01/26/22 16:50: WBC 6.2, RBC 4.99, Hgb 13.1, Hct 41.5, MCV 83.2, MCH 26.3 L, MCHC 31.6 L, RDW Std Deviation 44.3 H, RDW Coeff of Rufino 14.6, Plt Count 166, MPV 9.3, Immature Gran % (Auto) 0.200, Neut % (Auto) 58.6, Lymph % (Auto) 29.0, Walton % (Auto) 9.2, Eos % (Auto) 2.4, Baso % (Auto) 0.6, Absolute Neuts (auto) 3.6, Absolute Lymphs (auto) 1.79, Nucleated RBC % 0 01/26/22 16:50: Sodium 138, Potassium 3.4 L, Chloride 103, Carbon Dioxide 30.0, Anion Gap 5, BUN 13, Creatinine 0.64, Estim Creat Clear Calc 39.59, Est GFR (MDRD) Af Amer 116, Est GFR (MDRD) Non-Af 96, BUN/Creatinine Ratio 20.3 H, Glucose 86, Calcium 9.9 Assessment & Plan Assessment/Plan (1) Closed fracture of right patella: (2) At high risk for falls: (3) Falls: (4) Vitamin D deficiency: PLAN: Plan Closed fracture of right patellar Per conversation between ED doctor and orthopedic surgeon patient has a patellar fracture. Review of CBC showed normal hemoglobin. Keep right knee in brace. Weightbearing as tolerated a fall in brace. Oxycodone as needed. PT and OT consult. Case management consult for possible placement Fall and history of Vitamin D deficiency Vitamin D Level ordered. Hypertension Blood pressure is not within goal Home blood pressure medication continued. As needed hydralazine ordered. Trend blood pressure and adjust blood pressure medications. DVT Prophylaxis Subcutaneous Lovenox ordered Charges/Coding Visit Charges OBSV E&M: 17667 Initial observation care L2
[2022-01-26 20:00] VITALS: BP 141/65; PULSE 61; RESP 18; TEMP 36.6; O2SAT 94
[2022-01-26 21:05] VITALS: BP 148/90; PULSE 62; RESP 18; TEMP 36.7; O2SAT 98
[2022-01-26 21:12] VITALS: BMI 37.7
[2022-01-26] MEDS: Pramipexole Di-HCl 0.5 MG Tablet PO (22:09)
[2022-01-26] MEDS: MELATONIN 10 MG TABLET PO (22:11)
[2022-01-27] MEDS: Acetaminophen 500 MG Tablet 1000 MG PO ×3 (00:29→17:47)
[2022-01-27 05:00] VITALS: BP 141/84; PULSE 58; RESP 18; TEMP 36.7; O2SAT 94
[2022-01-27 06:29] LABS: Absolute Lymphocyte Count 1.42 X10^3/uL (0.83-4.51); Absolute Neutrophil Count 2.6 X10^3/uL (2.0-7.7); Basophil# 0.03 X10^3/uL; Basophil% 0.7 % (0-1); Eosinophil# 0.15 X10^3/uL; Eosinophils% 3.3 % (0-5); Hematocrit 38.1 % (37-47); Hemoglobin 12.3 g/dL (12.0-15.0); Lymphocyte # 1.42 X10^3/ul (0.83-4.51); Lymphocyte % 30.9 % (19-41); Mean Corp Hgb Conc 32.3 g/dL (32-36); Mean Corpuscular Hgb 26.9 pg (27.0-32.0); Mean Corpuscular Volume 83.2 fL (81-99); Mean Platelet Vol. 9.7 fl (6.2-12.0); Monocyte# 0.42 X10^3/uL; Monocyte% 9.1 % (0-10); NRBC Flagged by Analyzer 0 % (0-5); Neutrophil # 2.57 X10^3/uL (2.7-7.7); Neutrophil % 55.8 % (47-70); Platelet Count 157 K/mm3 (150-450); RBC Distribution Width CV 14.4 % (11.6-14.6); RBC Distribution Width SD 43.4 fl (35.1-43.9); Red Blood Count 4.58 M/mm3 (4.2-5.4); White Blood Count 4.6 K/mm3 (4.4-11.0)
[2022-01-27 06:56] LABS: Anion Gap 6 (5-15); BUN 13 mg/dL (7-18); BUN/Creat Ratio 22.4 RATIO (10-20); Calcium,Total 9.2 mg/dL (8.5-10.1); Chloride 101 mmol/L (98-107); Creatinine, Serum 0.58 mg/dL (0.55-1.02); EST Glomerular Filtration Rate 107 mL/min (>60); Est Glom Filt Rate - Afr Amer 130 mL/min (>60); Estimated Creatinine Clearance 37.85 ml/min; Glucose 92 mg/dL (74-106); Potassium 3.5 mmol/L (3.5-5.1); Sodium Level 135 mmol/L (136-145)
[2022-01-27 08:47] VITALS: BP 121/84; PULSE 68; RESP 16; TEMP 36.6; O2SAT 97
[2022-01-27] MEDS: Enoxaparin 40 MG/0.4 ML Syringe SC (08:49)
[2022-01-27] MEDS: Cholecalciferol (VIT D3) 25 MCG TABLET (1,000 UNITS) PO (08:49)
[2022-01-27] MEDS: Calcium Carb/Vitamin D 1 TABLET Tablet PO (08:49)
[2022-01-27] MEDS: Pantoprazole Sodium 40 MG Tablet PO (08:49)
[2022-01-27] MEDS: Multivitamins,Ther W-Minerals Tablet 1 TABLET PO (08:49)
[2022-01-27 08:50] VITALS: PULSE 68
[2022-01-27] MEDS: amLODIPine 2.5 MG Tablet PO (08:50)
[2022-01-27] MEDS: Magnesium Chloride 64 MG Delay Rel.Tablet PO (08:50)
[2022-01-27] MEDS: hydroCHLOROthiazide 25 MG Tablet PO (08:50)
[2022-01-27] MEDS: Metoprolol(XL)Succ 100 MG Tablet PO (08:50)
[2022-01-27] MEDS: Cyanocobalamin 500 MCG Tablet 1000 MCG PO (08:50)
[2022-01-27] MEDS: Sertraline 100 MG Tablet PO (08:51)
[2022-01-27] MEDS: Gabapentin 300 MG Capsule PO ×3 (08:54→17:47)
--- NOTE | 2022-01-27 11:58 | CASEMGMT ---
TRACY HANEY in to discuss CELIS form with patient. TRACY HANEY explained CELIS form, patient voiced understanding. Pt signed form and filed in chart. Pt provided with a copy of signed CELIS form. Patient states she needs to go to SNF for therapy. She is aware that SW will be in to speak with her. Updated SW. Patient had no further questions or concerns at this time.
--- NOTE | 2022-01-27 13:48 | CM.ED ---
KYMBERLY Note KYMBERLY met with patient. Patient given list of SNF in network. Patient reviewed the list. Her first choice is TCU or Rehab. KYMBERLY texted Kylee in admission and she confirmed that [facility] Medicare is accepted by TCU/Rehab. KYMBERLY sent email to Kylee indicating patient is interested in TCU or RU at discharge. Plan: TCU or RU at [facility] Brandie DURAN
--- NOTE | 2022-01-27 14:58 | PN.HOSP_ITS ---
Subjective Subjective Patient was concerned that her straight leg knee brace was not working appropriately so we reviewed this and it is locked out at 0 degrees. We did move it proximally on her leg as it appears as if it had slid down. She states her pain is otherwise well controlled. She is aware that she needs to go to skilled facility for discharge and that essentially why she has been admitted. It appears that her first choice for discharge to TCU or acute rehab. Will await acceptance and then start pre-CERT. Patient is aware she will likely be here through the weekend and into the probably middle of next week awaiting pre- CERT. Objective Data Objective Data Vital Signs: Vital Signs Temp Pulse Resp BP Pulse Ox O2 Del Method 98 F 68 16 121/84 H 97 Room Air 01/27/22 08:47 01/27/22 08:50 01/27/22 08:47 01/27/22 08:47 01/27/22 08:47 01/27/22 08:47 Oxygen Delivery Method Room Air Weight: 96.6 kg Body Mass Index (BMI) 37.7 Intake & Output: Intake and Output for Last 24 Hours 01/25/22 01/26/22 01/27/22 23:59 23:59 23:59 Intake Total 400 / 400 Output Total 1150 / 1150 Balance -750 / -750 Lab / Micro Data Result Diagrams: 01/27/22 06:05 01/27/22 06:05 Labs: Laboratory Results - last 24 hr 01/26/22 16:50: WBC 6.2, RBC 4.99, Hgb 13.1, Hct 41.5, MCV 83.2, MCH 26.3 L, MCHC 31.6 L, RDW Std Deviation 44.3 H, RDW Coeff of Rufino 14.6, Plt Count 166, MPV 9.3, Immature Gran % (Auto) 0.200, Neut % (Auto) 58.6, Lymph % (Auto) 29.0, Dupage % (Auto) 9.2, Eos % (Auto) 2.4, Baso % (Auto) 0.6, Absolute Neuts (auto) 3.6, Absolute Lymphs (auto) 1.79, Nucleated RBC % 0 01/26/22 16:50: Sodium 138, Potassium 3.4 L, Chloride 103, Carbon Dioxide 30.0, Anion Gap 5, BUN 13, Creatinine 0.64, Estim Creat Clear Calc 39.59, Est GFR (MDRD) Af Amer 116, Est GFR (MDRD) Non-Af 96, BUN/Creatinine Ratio 20.3 H, Glucose 86, Calcium 9.9 01/27/22 06:05: WBC 4.6, RBC 4.58, Hgb 12.3, Hct 38.1, MCV 83.2, MCH 26.9 L, MCHC 32.3, RDW Std Deviation 43.4, RDW Coeff of Rufino 14.4, Plt Count 157, MPV 9.7, Immature Gran % (Auto) 0.200, Neut % (Auto) 55.8, Lymph % (Auto) 30.9, Dupage % (Auto) 9.1, Eos % (Auto) 3.3, Baso % (Auto) 0.7, Absolute Neuts (auto) 2.6, A bsolute Lymphs (auto) 1.42, Nucleated RBC % 0 01/27/22 06:05: Sodium 135 L, Potassium 3.5, Chloride 101, Carbon Dioxide 28.0, Anion Gap 6, BUN 13, Creatinine 0.58, Estim Creat Clear Calc 37.85, Est GFR (MDRD) Af Amer 130, Est GFR (MDRD) Non-Af 107, BUN/Creatinine Ratio 22.4 H, Glucose 92, Calcium 9.2 Physical Exam Const alert, oriented x3, no apparent distress and well nourished Constitutional Narrative: Obese, white female, sitting up in bed watching television and eating breakfast, appears comfortable nontoxic HEENT head/scalp atraumatic and moist oral mucous membranes HEENT Narrative: Mallampati 3, no thrush Head and Scalp: normocephalic Resp normal respiratory effort, no retractions, no use of accessory muscles and clear to auscultation bilaterally Cardio regular rate, regular rhythm, S1 normal heart sound, S2 normal heart sound, no murmurs, no rub, no gallops, no clicks and no JVD GI normal to inspection, nondistended, normoactive bowel sounds, soft to palpation, non-tender and non-distended Extremity no clubbing, cyanosis or edema Extremity Narrative: Right lower extremity and locked out DonJoy brace, brace had slid distally on her leg so we readjusted it Neuro oriented x3 and no focal motor deficits Neuro Narrative: Moves all extremities symmetrically except right lower extremity secondary to limitations with regards to her fracture Sensorium / Orientation: awake, alert, oriented to person, oriented to place and oriented to time Speech: speech normal Psych affect normal Psych Narrative: Very pleasant and appropriately interactive however mildly anxious Mood & Affect: anxious Assessment & Plan Assessment/Plan (1) Closed fracture of right patella: (2) Falls: (3) At high risk for falls: PLAN: Plan Closed fracture of the right patella -DonJoy brace locked at 0 per orthopedic surgery recommendation -Follows with Dr. Robson Valenzuela -Weightbearing as tolerated with leg brace in place locked at 0 degrees -As needed oxycodone -Bowel regimen -PT/OT consult History of vitamin D deficiency -Vitamin D level pending Falls -PT/OT consultation -Will need placement at discharge given restrictions with right lower extremity Hypertension -Continue home antihypertensives including metoprolol/HCTZ/amlodipine Restless leg syndrome -Continue gabapentin -Continue home Mirapex Obesity -Recommend weight loss -BMI 37.7 -Complicates treatment, prognosis, outcomes Depression -Continue home sertraline DVT prophylaxis Enoxaparin 40 mg daily CODE STATUS -DNR CCA no intubation Charges/Coding Visit Charges Inpatient E&M: 83212 Subs Hosp L2
[2022-01-27 15:21] VITALS: BP 140/88; PULSE 62; RESP 16; TEMP 36.8; O2SAT 94
[2022-01-27] MEDS: Pramipexole Di-HCl 0.5 MG Tablet PO (19:59)
[2022-01-27] MEDS: MELATONIN 10 MG TABLET PO (19:59)
[2022-01-27 21:20] VITALS: BP 136/83; PULSE 63; RESP 16; TEMP 37.1; O2SAT 94
[2022-01-28 03:00] VITALS: BP 134/73; PULSE 62; RESP 16; TEMP 36.7; O2SAT 94
[2022-01-28] MEDS: Multivitamins,Ther W-Minerals Tablet 1 TABLET PO (08:15)
[2022-01-28] MEDS: Cyanocobalamin 500 MCG Tablet 1000 MCG PO (08:16)
[2022-01-28] MEDS: Calcium Carb/Vitamin D 1 TABLET Tablet PO (08:16)
[2022-01-28] MEDS: Acetaminophen 500 MG Tablet 1000 MG PO ×2 (08:20→20:15)
[2022-01-28] MEDS: Gabapentin 300 MG Capsule PO ×3 (08:20→17:09)
[2022-01-28 09:00] VITALS: PULSE 68; RESP 18; TEMP 36.6; O2SAT 97
[2022-01-28] MEDS: hydroCHLOROthiazide 25 MG Tablet PO (09:18)
[2022-01-28] MEDS: Enoxaparin 40 MG/0.4 ML Syringe SC (09:18)
[2022-01-28 09:19] VITALS: BP 156/85; PULSE 68
[2022-01-28] MEDS: Pantoprazole Sodium 40 MG Tablet PO (09:19)
[2022-01-28] MEDS: Cholecalciferol (VIT D3) 25 MCG TABLET (1,000 UNITS) PO (09:19)
[2022-01-28] MEDS: amLODIPine 2.5 MG Tablet PO (09:19)
[2022-01-28] MEDS: Magnesium Chloride 64 MG Delay Rel.Tablet PO (09:19)
[2022-01-28] MEDS: Metoprolol(XL)Succ 100 MG Tablet PO (09:19)
[2022-01-28] MEDS: Sertraline 100 MG Tablet PO (09:20)
--- NOTE | 2022-01-28 11:19 | PCM.PN.HOSP ---
Subjective Subjective He is overnight. Patient does not have any pain while she is in the brace. She does indicate that she is not going to be able to do this at home independently and is hoping that her insurance will approve her to go to the transitional care unit for some time to get some rehab. She is aware that this may likely not happen until later this week. Objective Data Objective Data Vital Signs: Vital Signs Temp Pulse Resp BP Pulse Ox O2 Del Method 98 F 68 18 156/85 H 97 Room Air 01/28/22 09:00 01/28/22 09:19 01/28/22 09:00 01/28/22 09:19 01/28/22 09:00 01/28/22 09:00 Oxygen Delivery Method Room Air Weight: 96.6 kg Body Mass Index (BMI) 37.7 Intake & Output: Intake and Output for Last 24 Hours 01/26/22 01/27/22 01/28/22 23:59 23:59 23:59 Intake Total 750 / 750 Output Total 1650 / 1650 Balance -900 / -900 Lab / Micro Data Result Diagrams: 01/27/22 06:05 01/27/22 06:05 Physical Exam Const alert Constitutional Narrative: Obese, white female, sitting up in a chair at the bedside watching television and eating breakfast, appears comfortable nontoxic HEENT head/scalp atraumatic and moist oral mucous membranes HEENT Narrative: Mallampati 3, no thrush Resp normal respiratory effort, no retractions, no use of accessory muscles and clear to auscultation bilaterally Cardio regular rate, regular rhythm, S1 normal heart sound, S2 normal heart sound, no murmurs, no rub, no gallops, no clicks and no JVD GI normal to inspection, nondistended, normoactive bowel sounds, soft to palpation, non-tender and non-distended Extremity no clubbing, cyanosis or edema Extremity Narrative: Right lower extremity and locked out DonJoy brace, alignment is correct at this time Neuro oriented x3 and no focal motor deficits Neuro Narrative: Moves all extremities symmetrically except right lower extremity secondary to limitations with regards to her fracture Speech: speech normal Assessment & Plan Assessment/Plan (1) Closed fracture of right patella: (2) Falls: (3) At high risk for falls: PLAN: Plan Closed fracture of the right patella -DonJoy brace locked at 0 per orthopedic surgery recommendation -Follows with Dr. Valenzuela -Weightbearing as tolerated with leg brace in place locked at 0 degrees -As needed oxycodone -Bowel regimen -PT/OT consult History of vitamin D deficiency -Vitamin D level remains pending -If low will start on ergocalciferol Falls -PT/OT consultation -Will need placement at discharge given restrictions with right lower extremity Hypertension -Continue home antihypertensives including metoprolol/HCTZ/amlodipine Restless leg syndrome -Continue gabapentin -Continue home Mirapex Obesity -Recommend weight loss -BMI 37.7 -Complicates treatment, prognosis, outcomes Depression -Continue home sertraline DVT prophylaxis Enoxaparin 40 mg daily CODE STATUS -DNR CCA no intubation Charges/Coding Visit Charges Inpatient E&M: 17555 Subs Hosp L2
[2022-01-28] MEDS: oxyCODONE 5 MG Tablet PO (14:40)
[2022-01-28 15:00] VITALS: BP 137/73; PULSE 70; PULSE 84; RESP 18; TEMP 36.6; O2SAT 97
[2022-01-28] MEDS: MELATONIN 10 MG TABLET PO (20:15)
[2022-01-28] MEDS: Pramipexole Di-HCl 0.5 MG Tablet PO (20:15)
[2022-01-28 21:00] VITALS: BP 139/78; PULSE 62; RESP 16; TEMP 36.7; O2SAT 94
[2022-01-29 06:40] VITALS: BP 137/75; PULSE 57; RESP 16; TEMP 36.4; O2SAT 96
[2022-01-29 08:20] LABS: Vitamin D,25 Hydroxy 75.3 ng/mL
[2022-01-29 08:44] VITALS: BP 114/86; PULSE 64; RESP 18; TEMP 36.8; O2SAT 95
[2022-01-29] MEDS: Multivitamins,Ther W-Minerals Tablet 1 TABLET PO (08:46)
[2022-01-29] MEDS: Calcium Carb/Vitamin D 1 TABLET Tablet PO (08:47)
[2022-01-29] MEDS: Enoxaparin 40 MG/0.4 ML Syringe SC (08:47)
[2022-01-29] MEDS: Magnesium Chloride 64 MG Delay Rel.Tablet PO (08:47)
[2022-01-29] MEDS: Cyanocobalamin 500 MCG Tablet 1000 MCG PO (08:47)
[2022-01-29] MEDS: hydroCHLOROthiazide 25 MG Tablet PO (08:47)
[2022-01-29 08:48] VITALS: BP 114/86; PULSE 64
[2022-01-29] MEDS: Pantoprazole Sodium 40 MG Tablet PO (08:48)
[2022-01-29] MEDS: Sertraline 100 MG Tablet PO (08:48)
[2022-01-29] MEDS: amLODIPine 2.5 MG Tablet PO (08:48)
[2022-01-29] MEDS: Metoprolol(XL)Succ 100 MG Tablet PO (08:48)
[2022-01-29] MEDS: Cholecalciferol (VIT D3) 25 MCG TABLET (1,000 UNITS) PO (08:48)
[2022-01-29] MEDS: Gabapentin 300 MG Capsule PO ×3 (08:56→17:36)
--- NOTE | 2022-01-29 09:05 | CASEMGMT ---
Social Work SW spoke w/Kylee, they can take pt in TCU and start precert. She does not anticipate precert being attained today however, Kylee states that [employer] insurance takes about 48 hours. SW informed pt, she is in agreement w/TCU. SW also did make her aware of the time frame, pt states understanding. SW offered to call pt's family, she states will be speaking w/them today and will let them know. GUIDO Bernal
--- NOTE | 2022-01-29 12:12 | PCM.PN.HOSP ---
Subjective Subjective Some pain and restless leg syndrome overnight. States she is a little bit better this morning. Also complains of left knee pain and she is following with Dr. Stark for this. TCU was had approved for discharge and now we are awaiting pre-CERT from insurance [employer]. Objective Data Objective Data Vital Signs: Vital Signs Temp Pulse Resp BP Pulse Ox O2 Del Method 98.2 F 64 18 114/86 H 95 Room Air 01/29/22 08:44 01/29/22 08:48 01/29/22 08:44 01/29/22 08:48 01/29/22 08:44 01/29/22 08:44 Oxygen Delivery Method Room Air Weight: 96.6 kg Body Mass Index (BMI) 37.7 Intake & Output: Intake and Output for Last 24 Hours 01/27/22 01/28/22 01/29/22 23:59 23:59 23:59 Intake Total 750 / 750 1000 / 1000 Output Total 1650 / 1650 Balance -900 / -900 1000 / 1000 Lab / Micro Data Result Diagrams: 01/27/22 06:05 01/27/22 06:05 Labs: Laboratory Results - last 24 hr 01/27/22 06:05: Vitamin D 25-Hydroxy 75.3 Physical Exam Const alert, oriented x3, no apparent distress and well nourished Constitutional Narrative: Obese, white female, sitting up in a chair at the bedside watching television, nursing at bedside, appears comfortable, nontoxic HEENT head/scalp atraumatic and moist oral mucous membranes Resp normal respiratory effort, no retractions, no use of accessory muscles and clear to auscultation bilaterally Cardio regular rate, regular rhythm, S1 normal heart sound, S2 normal heart sound, no murmurs, no rub, no gallops, no clicks and no JVD GI normal to inspection, nondistended, normoactive bowel sounds, soft to palpation, non-tender and non-distended Extremity no clubbing, cyanosis or edema Extremity Narrative: Right lower extremity and locked out DonJoy brace, alignment is correct at this time Neuro oriented x3 and no focal motor deficits Neuro Narrative: Moves all extremities symmetrically except right lower extremity secondary to limitations with regards to her fracture Sensorium / Orientation: awake, alert, oriented to person, oriented to place and oriented to time Speech: speech normal Assessment & Plan Assessment/Plan (1) Closed fracture of right patella: (2) Falls: (3) At high risk for falls: PLAN: Plan Closed fracture of the right patella -DonJoy brace locked at 0 per orthopedic surgery recommendation -Follows with Dr. Valenzuela -Weightbearing as tolerated with leg brace in place locked at 0 degrees -As needed oxycodone -Bowel regimen -PT/OT consult -TCU has excepted for discharge and now awaiting pre-CERT from insurance [employer] History of vitamin D deficiency -75.3 --> no need for changes Falls -PT/OT consultation -Will need placement at discharge given restrictions with right lower extremity Hypertension -Continue home antihypertensives including metoprolol/HCTZ/amlodipine Restless leg syndrome -Continue gabapentin -Continue home Mirapex Obesity -Recommend weight loss -BMI 37.7 -Complicates treatment, prognosis, outcomes Depression -Continue home sertraline DVT prophylaxis Enoxaparin 40 mg daily CODE STATUS -DNR CCA no intubation Charges/Coding Visit Charges Inpatient E&M: 18230 Subs Hosp L2
[2022-01-29 14:54] VITALS: BP 114/74; PULSE 64; RESP 16; TEMP 37.3; O2SAT 99
--- NOTE | 2022-01-29 16:01 | CASEMGMT ---
RN CM updated that patient had concerns with being in observation status. RN CM in to explain observation status and that her managed MCR plan covers observation level of care. Patient voiced understanding and had no further questions or concerns at this time.
[2022-01-29] MEDS: 0.9% Saline Lock 10 ML Syringe IV (17:38)
[2022-01-29 21:00] VITALS: BP 125/70; PULSE 73; RESP 18; TEMP 36.8; O2SAT 97
[2022-01-29] MEDS: Pramipexole Di-HCl 0.5 MG Tablet PO (21:01)
[2022-01-29] MEDS: MELATONIN 10 MG TABLET PO (23:36)
[2022-01-29] MEDS: Acetaminophen 500 MG Tablet 1000 MG PO (23:36)
[2022-01-30 04:18] VITALS: BP 144/91; PULSE 67; RESP 18; TEMP 36.7; O2SAT 93
--- NOTE | 2022-01-30 07:59 | CASEMGMT ---
Discharge Pig Machine Operator Kylee from TCU called. Patient got pre-cert. Patient can go to TCU when medically ready and a covid test. Plan: TCU Tamra Garcia Discharge Pig Machine Operator
[2022-01-30] MEDS: Calcium Carb/Vitamin D 1 TABLET Tablet PO (08:45)
[2022-01-30] MEDS: amLODIPine 2.5 MG Tablet PO (08:45)
[2022-01-30] MEDS: Multivitamins,Ther W-Minerals Tablet 1 TABLET PO (08:45)
[2022-01-30] MEDS: hydroCHLOROthiazide 25 MG Tablet PO (08:45)
[2022-01-30] MEDS: Cyanocobalamin 500 MCG Tablet 1000 MCG PO (08:45)
[2022-01-30] MEDS: Cholecalciferol (VIT D3) 25 MCG TABLET (1,000 UNITS) PO (08:45)
[2022-01-30] MEDS: Sertraline 100 MG Tablet PO (08:45)
[2022-01-30] MEDS: Magnesium Chloride 64 MG Delay Rel.Tablet PO (08:45)
[2022-01-30] MEDS: Pantoprazole Sodium 40 MG Tablet PO (08:45)
[2022-01-30] MEDS: Enoxaparin 40 MG/0.4 ML Syringe SC (08:47)
[2022-01-30] MEDS: Gabapentin 300 MG Capsule PO ×2 (08:49→12:02)
[2022-01-30 08:50] VITALS: BP 130/98; PULSE 76; RESP 18; TEMP 37; O2SAT 93
[2022-01-30] MEDS: Metoprolol(XL)Succ 100 MG Tablet PO (08:50)
--- NOTE | 2022-01-30 10:29 | DS.PCM_ITS ---
Providers Date of Admission: 01/26/22 Date of Discharge: 01/30/22 Primary Care Physician: Dr. Cheryl Russell DO Reason For Visit: RIGHT KNEE SURGERY Diagnosis Discharge Diagnosis (1) Closed fracture of right patella: Status: Acute Code(s): S82.001A - Unspecified fracture of right patella, initial encounter for closed fracture (2) Falls: Status: Acute Code(s): W19.XXXA - Unspecified fall, initial encounter (3) At high risk for falls: Status: Acute Code(s): Z91.81 - History of falling Plan Closed fracture of the right patella -DonJoy brace locked at 0 per orthopedic surgery recommendation -Follows with Dr. Valenzuela -Weightbearing as tolerated with leg brace in place locked at 0 degrees -As needed oxycodone -Bowel regimen -PT/OT consult -TCU has excepted for discharge and now awaiting pre-CERT from [employer] History of vitamin D deficiency -75.3 --> no need for changes Falls -PT/OT consultation -Will need placement at discharge given restrictions with right lower extremity Hypertension -Continue home antihypertensives including metoprolol/HCTZ/amlodipine Restless leg syndrome -Continue gabapentin -Continue home Mirapex Obesity -Recommend weight loss -BMI 37.7 -Complicates treatment, prognosis, outcomes Depression -Continue home sertraline DVT prophylaxis Enoxaparin 40 mg daily CODE STATUS -DNR CCA no intubation Medications at Discharge Home Medications amlodipine 2.5 mg tablet 2.5 mg PO DAILY Heart 08/04/19 calcium carbonate-vitamin D3 600 mg-125 unit tablet 1 tab PO 0800 Supplement 08/04/19 cyanocobalamin (vitamin B-12) 500 mcg tablet 1,000 mcg PO DAILY@0800 supplement 08/04/19 hydrochlorothiazide 25 mg tablet 25 mg PO DAILY Heart 08/04/19 melatonin 5 mg tablet 10 mg PO QHS PRN Sleep 08/04/19 multivitamin with minerals 1 tab PO DAILY supplement 08/04/19 omeprazole 40 mg capsule,delayed release 40 mg PO DAILY GERD 08/04/19 sertraline 100 mg tablet 100 mg PO DAILY depression 08/04/19 acetaminophen 500 mg tablet 1,000 mg PO Q8H PRN Pain 06/06/21 gabapentin 300 mg capsule 300 mg PO TIDCM pain 10/26/21 magnesium chloride 64 mg (magnesium chloride) tablet,delayed release (Mag 64) 64 mg PO DAILY supplement 10/26/21 oxycodone 5 mg tablet 5 - 10 mg PO Q4H PRN PRN Pain Score 6-10 3 days #36 tabs 10/31/21 cholecalciferol (vitamin D3) 25 mcg (1,000 unit) tablet 25 mcg PO DAILY SUPPLEMENT 01/26/22 metoprolol succinate 50 mg tablet,extended release 24 hr 100 mg PO DAILY HEART 01/26/22 pramipexole 0.5 mg tablet 0.5 mg PO QHS RLS 01/26/22 tramadol 50 mg tablet 50 mg PO Q6H PRN PRN Pain Score 1-5 3 days #12 tabs 01/30/22 Hospital Course Operations None Procedures None Summary of Care Provided Minutes Spent on Discharge: 27 Hospital Course: Mrs. Servin is a 76-year-old white female who presented to emergency department was [facility] on 01/26/2022 with right knee pain. She has a history of a right total knee arthroplasty and fell 2 to 3 weeks ago and landed on her right side. Her TKA was performed in May 2021 and she had a left knee arthroplasty done in October 2021. She followed up as an outpatient with her orthopedic surgeon and was found to have a patellar fracture. She had been having worsening pain all week with mobility and reported she had been wearing a brace and using her cane/walker when possible. At follow-up they were concerned that her fracture was potentially worsening and she was placed in a straight leg brace locked at 0 degrees and referred to the emergency department to be a dmitted to rehab as she was having difficulty at home. With her fracture her vitamin D level was obtained and found to be 75.3. She was maintained on her home vitamin D supplementation. She was admitted to medical floor and did well overall. She was followed by therapy and they did deem her needing of further therapy services prior to returning home as she does live independently and has no help. We obtain precertification from her insurance company on 01/30/2022 when she was discharged to the transitional care unit in stable condition. Discharge diagnoses: Closed right patella fracture History of vitamin D deficiency Falls Hypertension Restless leg syndrome Obesity Depression Physical Exam Const alert, oriented x3, no apparent distress and well nourished Constitutional Narrative: Obese, white female, ambulating with therapy services at the bedside using ari nick and her brace in place, appears comfortable, nontoxic General Appearance: cooperative, comfortable, well kempt and well developed Orientation / Consciousness: awake, oriented to person, oriented to place and oriented to time Exam Limitations: no limitations Nutritional Appearance: obese HEENT normocephalic, head/scalp atraumatic, hearing grossly normal bilaterally and moist oral mucous membranes Resp normal respiratory effort, no retractions, no use of accessory muscles and clear to auscultation bilaterally Cardio regular rate, regular rhythm, S1 normal heart sound, S2 normal heart sound, no murmurs, no rub, no gallops, no clicks and no JVD GI normal to inspection, nondistended, normoactive bowel sounds, soft to palpation, non-tender and non-distended Extremity no clubbing, cyanosis or edema Extremity Narrative: Right lower extremity and locked out DonJoy brace, alignment is correct at this time Neuro oriented x3 and no focal motor deficits Neuro Narrative: Moves all extremities symmetrically except right lower extremity secondary to li mitations with regards to her fracture Speech: speech normal Psych affect normal Psych Narrative: Very pleasant and appropriately interactive Mood & Affect: anxious Weight / BMI Weight Weight: 96.6 kg Body Mass Index (BMI) 37.7 ABG / Lab / Microbiology Data Result Diagrams: 01/27/22 06:05 01/27/22 06:05 D/C Instructions Discharge Diet: Low fat / Low cholesterol Meaningful Use Info Meaningful Use Diagnoses (Choose all that apply): None applicable Discharge Plan Admission Admit Date/Time: 01/26/22 19:27 Primary Reason for Your Visit: Right patellar fracture Attending Provider: Aaliyah Mckay Primary Care Provider: Cheryl Russell Consulting Providers: Curly Stevenson Discharge Orders/Prescriptions Prescriptions: Continued sertraline 100 MG tablet 100 mg PO DAILY amlodipine 2.5 MG tablet 2.5 mg PO DAILY omeprazole 40 MG capsule,delayed release(DR/EC) 40 mg PO DAILY cyanocobalamin (vitamin B-12) 500 MCG tablet 1,000 mcg PO DAILY@0800 hydrochlorothiazide 25 MG tablet 25 mg PO DAILY multivitamin with minerals 1 EACH tablet 1 tab PO DAILY calcium carbonate-vitamin D3 1 EACH tablet 1 tab PO 0800 melatonin 5 MG tablet 10 mg PO QHS PRN (Reason: Sleep) acetaminophen 500 MG tablet 1,000 mg PO Q8H PRN (Reason: Pain) gabapentin 300 mg capsule 300 mg PO TIDCM Mag 64 64 mg tablet,delayed release (DR/EC) 64 mg PO DAILY oxycodone 5 mg Tablet 5 - 10 mg PO Q4H PRN PRN (Reason: Pain Score 6-10) 3 Days Qty: 36 0RF metoprolol succinate 50 mg tablet extended release 24 hr 100 mg PO DAILY pramipexole 0.5 mg tablet 0.5 mg PO QHS cholecalciferol (vitamin D3) 25 mcg (1,000 unit) Tablet 25 mcg PO DAILY tramadol 50 mg Tablet 50 mg PO Q6H PRN PRN (Reason: Pain Score 1-5) 3 Days Qty: 12 0RF Referrals / Follow Up: Cheryl Russell DO [Primary Care Provider] - Within 1 Month Louie Stark DO [Med Staff - Active Staff] - See Referral Note (as instructed at last appt) Disposition Disposition (needs filled in before D/C Order can be placed): Assisted Facility Charges/Coding Visit Charges Inpatient E&M: 06899 SNF Disch
--- NOTE | 2022-01-30 10:39 | PCM.TXEXTCAR ---
Diet Diet Order/Speech Therapy: 01/26/22 21:04 Diet: Cardiac - Heart Healthy Food consistency:: Regular Liquid Consistency:: Regular/Thin Routine Orders/Code Status O2 Frequency: PRN Keep PO Greater than or Equal to (%): 92 Code Status: DNRCC-A Therapies Weight Bearing: Weight bearing as tolerated (Must have straight leg brace locked at 0 at all times) Physical Therapy: Eval and Treat Occupational Therapy: Eval and Treat Problem/Diagnosis (1) Closed fracture of right patella: Status: Acute Code(s): S82.001A - Unspecified fracture of right patella, initial encounter for closed fracture (2) Falls: Status: Acute Code(s): W19.XXXA - Unspecified fall, initial encounter (3) At high risk for falls: Status: Acute Code(s): Z91.81 - History of falling Plan Closed fracture of the right patella -DonJoy brace locked at 0 per orthopedic surgery recommendation -Follows with Dr. Valenuzela -Weightbearing as tolerated with leg brace in place locked at 0 degrees -As needed oxycodone -Bowel regimen -PT/OT consult -TCU has excepted for discharge and now awaiting pre-CERT from [facility] History of vitamin D deficiency -75.3 --> no need for changes Falls -PT/OT consultation -Will need placement at discharge given restrictions with right lower extremity Hypertension -Continue home antihypertensives including metoprolol/HCTZ/amlodipine Restless leg syndrome -Continue gabapentin -Continue home Mirapex Obesity -Recommend weight loss -BMI 37.7 -Complicates treatment, prognosis, outcomes Depression -Continue home sertraline DVT prophylaxis Enoxaparin 40 mg daily CODE STATUS -DNR CCA no intubation Allergies/Procedures Done in Hospital Allergies No Known Allergies Allergy (Verified 01/26/22 15:51) Procedures: None Type of Care/Length of Stay Estimated LOS: Convalescent Care Less Than 30 days Type of Care Needed: Skilled Rehab Potential: Good Prognosis: Good Additional Orders/Day of Discharge Day of Discharge: 01/30/22 Discharge Plan Admission Admit Date/Time: 01/26/22 19:27 Primary Reason for Your Visit: Right patellar fracture Attending Provider: Aaliyah Mckay Primary Care Provider: Cheryl Russell Consulting Providers: Curly Stevenson Discharge Orders/Prescriptions Prescriptions: Continued sertraline 100 MG tablet 100 mg PO DAILY amlodipine 2.5 MG tablet 2.5 mg PO DAILY omeprazole 40 MG capsule,delayed release(DR/EC) 40 mg PO DAILY cyanocobalamin (vitamin B-12) 500 MCG tablet 1,000 mcg PO DAILY@0800 hydrochlorothiazide 25 MG tablet 25 mg PO DAILY multivitamin with minerals 1 EACH tablet 1 tab PO DAILY calcium carbonate-vitamin D3 1 EACH tablet 1 tab PO 0800 melatonin 5 MG tablet 10 mg PO QHS PRN (Reason: Sleep) acetaminophen 500 MG tablet 1,000 mg PO Q8H PRN (Reason: Pain) gabapentin 300 mg capsule 300 mg PO TIDCM Mag 64 64 mg tablet,delayed release (DR/EC) 64 mg PO DAILY oxycodone 5 mg Tablet 5 - 10 mg PO Q4H PRN PRN (Reason: Pain Score 6-10) 3 Days Qty: 36 0RF metoprolol succinate 50 mg tablet extended release 24 hr 100 mg PO DAILY pramipexole 0.5 mg tablet 0.5 mg PO QHS cholecalciferol (vitamin D3) 25 mcg (1,000 unit) Tablet 25 mcg PO DAILY tramadol 50 mg Tablet 50 mg PO Q6H PRN PRN (Reason: Pain Score 1-5) 3 Days Qty: 12 0RF Referrals / Follow Up: Cheryl Russell DO [Primary Care Provider] - Within 1 Month Louie tSark DO [Med Staff - Active Staff] - See Referral Note (as instructed at last appt) Disposition Disposition (needs filled in before D/C Order can be placed): Assisted Facility
--- NOTE | 2022-01-30 10:57 | PHA.DC.MR ---
Pharmacy Service has performed discharge medication reconciliation for this patient. The patient's discharge medication list was reviewed for discrepancies and discrepancies were resolved. Home Medications amlodipine 2.5 mg tablet 2.5 mg PO DAILY Heart 08/04/19 calcium carbonate-vitamin D3 600 mg-125 unit tablet 1 tab PO 0800 Supplement 08/04/19 cyanocobalamin (vitamin B-12) 500 mcg tablet 1,000 mcg PO DAILY@0800 supplement 08/04/19 hydrochlorothiazide 25 mg tablet 25 mg PO DAILY Heart 08/04/19 melatonin 5 mg tablet 10 mg PO QHS PRN Sleep 08/04/19 multivitamin with minerals 1 tab PO DAILY supplement 08/04/19 omeprazole 40 mg capsule,delayed release 40 mg PO DAILY GERD 08/04/19 sertraline 100 mg tablet 100 mg PO DAILY depression 08/04/19 acetaminophen 500 mg tablet 1,000 mg PO Q8H PRN Pain 06/06/21 gabapentin 300 mg capsule 300 mg PO TIDCM pain 10/26/21 magnesium chloride 64 mg (magnesium chloride) tablet,delayed release (Mag 64) 64 mg PO DAILY supplement 10/26/21 oxycodone 5 mg tablet 5 - 10 mg PO Q4H PRN PRN Pain Score 6-10 3 days #36 tabs 10/31/21 cholecalciferol (vitamin D3) 25 mcg (1,000 unit) tablet 25 mcg PO DAILY SUPPLEMENT 01/26/22 metoprolol succinate 50 mg tablet,extended release 24 hr 100 mg PO DAILY HEART 01/26/22 pramipexole 0.5 mg tablet 0.5 mg PO QHS RLS 01/26/22 tramadol 50 mg tablet 50 mg PO Q6H PRN PRN Pain Score 1-5 3 days #12 tabs 01/30/22
--- NOTE | 2022-01-30 11:05 | CASEMGMT ---
Social Work SW in to inform pt precert has been obtained and she can go to TCU today. Pt voiced understanding. Asked pt if she would like this worker to call any of her family to inform them of her discharge and transfer to TCU. Pt refused, stated she will call her sister to update her. SW faxed orders and negative covid result to TCU and placed copies on pt's chart. ASAD Mitchell
[2022-01-30 13:28] VITALS: BP 119/87; PULSE 71; RESP 16; TEMP 37.1; O2SAT 93
--- NOTE | 2022-01-30 13:57 | RAD_ITS ---
STUDY: X-RAY - RIGHT KNEE REASON FOR EXAM: Female, 76 years old. pain -- and quot;weight bearing lateral and quot; TECHNIQUE: 2 view(s) of the knee. COMPARISON: 06/12/2021 FINDINGS: Normal visualized distal femur. Normal visualized proximal tibia and fibula. Normal proximal tibiofibular articulation. Subacute fracture through the inferior pole of the patella. Status post total knee arthroplasty. The prosthesis appears located. No ostial lysis to suggest loosening.. The soft tissue structures are unremarkable. RAD/Knee 1 or 2 Views IMPRESSION: Subacute fracture through the inferior pole of the patella. Electronically Signed: Donny Johnson MD at 16:56 EDT ,
--- NOTE | 2022-01-30 15:36 | CHAPLAIN ---
Type of Pastoral Visit _x__ Initial Visit ___ Follow-up Visit ___ On-call Visit ___ General Patient Visit ___ Spiritual Assessment ___ Family Conference ___ Bereavement ___ Rapid Response ___ Code Blue ___ Other (describe below) Pastoral Care Referral From _x__ Patient ___ Family ___ Nurse ___ Physician ___ Buffing And Sueding Machine Operator ___ Clinical Mental Health Counselor ___ Other (describe below) Sacrament/Intervention _x__ Active listening ___ Anointing ___ Uatsdin ___ Bereavement ___ Communion _x__ Leti exploration ___ _x__ Life review _x__ Prayer ___ Reconciliation ___ Sacrament of Sick _x__ Supportive presence ___ Wedding ___ Other (describe below) Pastoral Comments patient has been seen in previous admissions by this psychology professor; pt welcomes spiritual care and gives information on current situation; pt to be moved to TCU today; pt is talkative and then visit ends when she is transported to x-ray
== END 2022-01-30 15:34 | disposition skilled nursing facility (03) ==
LOC: ED 16:36 → MS3 20:38
PROVIDERS: Admitting Provider Hospitalist; Emergency Provider Emergency Medicine; PCP Internal Medicine; Visit Provider Internal Medicine
DX: S82.001A Unspecified fracture of right patella, initial encounter for closed fracture (principal); Z68.37 Body mass index [BMI] 37.0-37.9, adult; I10 Essential (primary) hypertension; G25.81 Restless legs syndrome; G89.29 Other chronic pain; E66.9 Obesity, unspecified; F32.A Depression, unspecified; E55.9 Vitamin D deficiency, unspecified; M19.90 Unspecified osteoarthritis, unspecified site; K21.9 Gastro-esophageal reflux disease without esophagitis; Z79.899 Other long term (current) drug therapy; Z96.652 Presence of left artificial knee joint; Z87.891 Personal history of nicotine dependence; Y93.9 Activity, unspecified; Y99.9 Unspecified external cause status; W19.XXXA Unspecified fall, initial encounter; Y92.9 Unspecified place or not applicable
CPT/HCPCS: 36415; 73560; 80048; 82306; 85025; 87426; 96372; 97110; 97116; 97161; 97165; 97530; 97535; 99218; 99284; A4216; G0378

== ENCOUNTER 2022-01-30 15:45 | Inpatient (IN) | payer MEDICARE, SELFPAY ==
[2022-01-30 16:00] VITALS: BP 134/65; PULSE 60; RESP 16; TEMP 36.1; O2SAT 94
[2022-01-30 16:12] VITALS: BMI 37.2
[2022-01-30 16:28] VITALS: BP 134/65; PULSE 60; RESP 16; TEMP 36.1; O2SAT 94
[2022-01-30] MEDS: Gabapentin 300 MG Capsule PO (17:07)
[2022-01-30 19:02] VITALS: PULSE 62; RESP 18; O2SAT 94
--- NOTE | 2022-01-30 20:50 | HP.PCM_ITS ---
HPI - General General Date of Admission: 01/30/22 Date of Service: 01/30/22 Chief Complaint: Here for rehab. HPI Narrative 01/26/2022 TOREY SUAREZ, is a 76 Female who presents to [facility] Emergency Department with lower extremity injury. Fall 2-3 weeks ago, right patellar fracture. Pain despite brace, cane, rollator, concern with risk of falls. She lives alone. 01/26/2022 Admit to Hospital. Oxycodone PRN pain, PT/OT for debility. Adjust blood pressure medications to control blood pressure. Add PRN Hydralazine. 01/27/2022 PT/OT for [facility]. 01/28/2022 No pain while in brace. Unable to care for self home alone. 01/29/2022 Right knee pain, Restless leg syndrome overnight. Awaiting Pre-CERT for TCU. 01/30/2022 Admit to TCU with debility, here for rehabilitation, strengthening, prior to discharge home alone. [facility] Medical History Ambulates with cane Arthritis Bladder disease Bruising Former smoker Gastric reflux History of echocardiogram History of hiatal hernia Hypertension Leg cramps Restless legs Walker as ambulation aid Wears dentures Wears glasses Home Medications amlodipine 2.5 mg tablet 2.5 mg PO DAILY Heart 08/04/19 [History Last Taken 01/30/22 08:45] calcium carbonate-vitamin D3 600 mg-125 unit tablet 1 tab PO 0800 Supplement 08/04/19 [History Last Taken 01/30/22 08:45] cyanocobalamin (vitamin B-12) 500 mcg tablet 1,000 mcg PO DAILY@0800 supplement 08/04/19 [History Last Taken 01/30/22 08:45] hydrochlorothiazide 25 mg tablet 25 mg PO DAILY Heart 08/04/19 [History Last Taken 01/30/22 08:45] melatonin 5 mg tablet 10 mg PO QHS PRN Sleep 08/04/19 [History Last Taken 01/29/22 23:40] multivitamin with minerals 1 tab PO DAILY supplement 08/04/19 [History Last Taken 01/30/22 08:45] omeprazole 40 mg capsule,delayed release 40 mg PO DAILY GERD 08/04/19 [History Last Taken 01/30/22 08:45] sertraline 100 mg tablet 100 mg PO DAILY depression 08/04/19 [History Last Taken 01/30/22 08:45] acetaminophen 500 mg tablet 1,000 mg PO Q8H PRN Pain 06/06/21 [History Last Taken 01/29/22 23:35] gabapentin 300 mg capsule 300 mg PO TIDCM pain 10/26/21 [History Last Taken 01/30/22 08:50] magnesium chloride 64 mg (magnesium chloride) tablet,delayed release (Mag 64) 64 mg PO DAILY supplement 10/26/21 [History Last Taken 01/30/22 08:45] oxycodone 5 mg tablet 5 - 10 mg PO Q4H PRN PRN Pain Score 6-10 3 days #36 tabs 10/31/21 [Rx Last Taken 01/28/22 14:40] cholecalciferol (vitamin D3) 25 mcg (1,000 unit) tablet 25 mcg PO DAILY SUPPLEMENT 01/26/22 [History Last Taken 01/30/22 08:45] metoprolol succinate 50 mg tablet,extended release 24 hr 100 mg PO DAILY HEART 01/26/22 [History Last Taken 01/30/22 08:50] pramipexole 0.5 mg tablet 0.5 mg PO QHS RLS 01/26/22 [History Last Taken 01/29/22 21:05] tramadol 50 mg tablet 50 mg PO Q6H PRN PRN Pain Score 1-5 3 days #12 tabs 01/30/22 [Rx Last Taken Unknown] Allergy/AdvReac Type Severity Reaction Status Date / Time No Known Allergies Allergy Verified 01/26/22 15:51 Family History Father Hypertension Brother Cancer Anemia Surgical History History of back surgery History of eye surgery History of hysterectomy History of laparoscopic cholecystectomy History of repair of rectocele History of total left knee replacement History of total right knee replacement History of tubal ligation Social History household members: none Smoking Status: Former smoker alcohol intake: never substance use type: does not use ROS Constitutional Constitutional: Denies chills, fever(s) or weight gain ENT HEENT: Denies headache(s), nasal congestion or nasal discharge Cardiovascular Cardiovascular: Denies chest pain or palpitations Respiratory/Chest Respiratory/Chest: Denies cough, excessive phlegm production or shortness of breath with exertion Gastrointestinal Gastrointestinal: Denies abdominal pain, nausea or vomiting Genitourinary Genitourinary: Denies dysuria Musculoskeletal Musculoskeletal: Reports joint pain and other Details: Right knee pain. ; Denies joint swelling Integumentary Integumentary: Denies rash or wounds Neurologic Neurologic: Denies focal weakness, numbness or tingling Psychiatric Psychiatric: Denies anxiety, auditory hallucinations, depression, homicidal ideation or suicidal ideation Vital Signs Vital Signs Vital Signs: 01/30/22 16:00 01/30/22 16:28 01/30/22 19:02 Temperature 96.9 F L 96.9 F L Temperature Source Oral Oral Pulse Rate 60 60 62 Pulse Rhythm Regular Pulse Strength Normal (2+) Respiratory Rate 16 16 18 Respiratory Effort Normal Non-Labored Respiratory Depth Normal Respiratory Pattern Normal Blood Pressure 134/65 H 134/65 H Blood Pressure Mean 88 88 Blood Pressure Source Monitor Monitor Blood Pressure Position Sitting Sitting Blood Pressure Location Right Arm Right Arm Pulse Ox 94 94 94 Oxygen Delivery Method Room Air Room Air Room Air Weight Weight: 95.254 kg Body Mass Index (BMI) 37.2 Physical Exam Const alert General Appearance: cooperative HEENT normocephalic Eyes PERRL and EOMs intact bilaterally Neck supple, no JVD and no carotid bruits Resp normal respiratory effort, normal air movement and clear to auscultation bilaterally Cardio regular rate and regular rhythm GI normal to inspection, nondistended, normoactive bowel sounds, non-tender and non-distended Extremity normal capillary refill Extremity Narrative: Right knee brace. General Extremity: Negative for edema Skin no rashes or lesions noted General Skin Exam: no breakdown Psych affect normal Appearance: appropriate Assessment & Plan Assessment/Plan (1) Debility: (2) Falls: (3) Closed fracture of right patella: (4) At high risk for falls: (5) Restless leg syndrome: (6) Neuropathic pain: (7) Hypomagnesemia: (8) Hypertension: (9) Insomnia: (10) Gastroesophageal reflux disease: (11) Depression: (12) Vitamin D deficiency: PLAN: Plan 76 year old female with below past medical history hospitalized for intractable right knee pain secondary to right patella fracture, admitted to TCU with debility, here for rehabilitation, strengthening, prior to discharge home alone. * Debility - PT/OT. * Pain - Tylenol 1000mg q6h prn pain (1-3), Tramadol 50mg q6h prn pain (4-5), Oxycodone 5mg q4h prn pain (6-10). * Bowel - Senna/colace 2 tablets bid prn, Dulcolax 10mg daily prn. * Adult immunization - Administer pneumonia vaccine, covid19 vaccine, flu vaccine as appropriate. * DVT prophylaxis - HAS-BLED 1 intermediate risk of bleeding, Yessenia 7 high risk of DVT, overall risk moderate, Rx Xarelto 10mg daily x 10 days. * Hypertension - Metoprolol succinate 100mg daily, HCTZ 25mg daily, Amlodipine 2.5mg daily. * Calcium deficiency - Calcium D 1 tablet daily. * Vitamin B12 deficiency - B12 1000mcg daily. * Neuropathic pain - Gabapentin 300mg tidcm. * Hypomagnesium - Magnesium chloride 64mg daily. * Insomnia - Melatonin 10mg qhs prn. * Nutrition - MVI daily. * GERD - Pantoprazole 40mg daily. * Restless Leg syndrome - Mirapex 0.5mg qhs. * Depression - Sertraline 100mg daily, stable chronic truck terminal manager use, GDR not recommended. * Vitamin D deficiency - D3 25mcg daily.
[2022-01-30] MEDS: Pramipexole Di-HCl 0.5 MG Tablet PO (21:15)
[2022-01-31] MEDS: Acetaminophen 500 MG Tablet 1000 MG PO (04:13)
[2022-01-31] MEDS: oxyCODONE 5 MG Tablet PO ×2 (04:14→20:52)
[2022-01-31 05:37] LABS: Absolute Lymphocyte Count 2.08 X10^3/uL (0.83-4.51); Absolute Neutrophil Count 4.1 X10^3/uL (2.0-7.7); Basophil# 0.07 X10^3/uL; Eosinophils% 2.8 % (0-5); Hematocrit 43.2 % (37-47); Hemoglobin 13.9 g/dL (12.0-15.0); Lymphocyte # 2.08 X10^3/ul (0.83-4.51); Lymphocyte % 29.2 % (19-41); Mean Corp Hgb Conc 32.2 g/dL (32-36); Mean Corpuscular Hgb 26.9 pg (27.0-32.0); Mean Corpuscular Volume 83.7 fL (81-99); Mean Platelet Vol. 9.2 fl (6.2-12.0); Monocyte% 9.8 % (0-10); NRBC Flagged by Analyzer 0 % (0-5); Neutrophil # 4.06 X10^3/uL (2.7-7.7); Neutrophil % 56.9 % (47-70); Platelet Count 189 K/mm3 (150-450); RBC Distribution Width CV 14.6 % (11.6-14.6); RBC Distribution Width SD 44.5 fl (35.1-43.9); Red Blood Count 5.16 M/mm3 (4.2-5.4); White Blood Count 7.1 K/mm3 (4.4-11.0)
[2022-01-31 05:51] VITALS: BP 122/74; PULSE 65
[2022-01-31] MEDS: Pantoprazole Sodium 40 MG Tablet PO (05:52)
[2022-01-31] MEDS: amLODIPine 2.5 MG Tablet PO (05:52)
[2022-01-31 05:53] VITALS: PULSE 65
[2022-01-31] MEDS: Magnesium Chloride 64 MG Delay Rel.Tablet PO (05:53)
[2022-01-31] MEDS: Metoprolol(XL)Succ 100 MG Tablet PO (05:53)
[2022-01-31] MEDS: hydroCHLOROthiazide 25 MG Tablet PO (05:53)
[2022-01-31] MEDS: Cholecalciferol (VIT D3) 25 MCG TABLET (1,000 UNITS) PO (05:53)
[2022-01-31] MEDS: Sertraline 100 MG Tablet PO (05:53)
[2022-01-31 05:58] LABS: Anion Gap 6 (5-15); BUN 17 mg/dL (7-18); BUN/Creat Ratio 23.7 RATIO (10-20); Calcium,Total 10.1 mg/dL (8.5-10.1); Chloride 102 mmol/L (98-107); Creatinine, Serum 0.72 mg/dL (0.55-1.02); EST Glomerular Filtration Rate 84 mL/min (>60); Est Glom Filt Rate - Afr Amer 101 mL/min (>60); Estimated Creatinine Clearance 39.59 ml/min; Glucose 91 mg/dL (74-106); Potassium 3.9 mmol/L (3.5-5.1); Sodium Level 137 mmol/L (136-145)
[2022-01-31] MEDS: Gabapentin 300 MG Capsule PO ×3 (07:38→17:02)
[2022-01-31] MEDS: Cyanocobalamin 500 MCG Tablet 1000 MCG PO (07:38)
[2022-01-31] MEDS: Multivitamins,Ther W-Minerals Tablet 1 TABLET PO (07:38)
[2022-01-31] MEDS: Calcium Carb/Vitamin D 1 TABLET Tablet PO (07:38)
[2022-01-31] MEDS: Tuberculin,Purif.prot.deriv. 50 TU/ML Vial 0.1 ML ID (09:42)
--- NOTE | 2022-01-31 10:59 | PCM.PN.DRR ---
TCU RX Drug Regimen Review Subjective: TCU Admission. 76 YOF presented to the ER with lower extremity injury. Hospitalized for intractable right knee pain secondary to right patella fracture. Admitted to TCU with debility for strengthening and rehabilitation. Objective: Allergies No Known Allergies Allergy (Verified 01/26/22 15:51) Current Medications Generic Name Dose Route Start Last Admin Trade Name Freq PRN Reason Stop Dose Admin Acetaminophen 1,000 mg 01/30/22 21:07 01/31/22 04:13 Acetaminophen 500 Mg Tablet PO 1,000 mg Q6H PRN PRN Administration Pain Score 1-3 Amlodipine Besylate 2.5 mg 01/31/22 06:00 01/31/22 05:52 Amlodipine 2.5 Mg Tablet PO 2.5 mg DAILY JOSE Administration Bisacodyl 10 mg 01/30/22 21:06 Bisacodyl 5 Mg Tablet PO DAILY PRN Constipation Calcium/Vitamin D 1 tablet 01/31/22 08:00 01/31/22 07:38 Calcium Carb/Vitamin D 1 Tablet Tablet PO 1 tablet 0800 JOSE Administration Cholecalciferol 25 mcg 01/31/22 06:00 01/31/22 05:53 Cholecalciferol (Vit D3) 25 Mcg Tablet (1,000 Units) PO 25 mcg DAILY JOSE Administration Cyanocobalamin 1,000 mcg 01/31/22 08:00 01/31/22 07:38 Cyanocobalamin 500 Mcg Tablet PO 1,000 mcg DAILY@0800 JOSE Administration Gabapentin 300 mg 01/30/22 17:45 01/31/22 07:38 Gabapentin 300 Mg Capsule PO 300 mg TIDCM JOSE Administration Hydrochlorothiazide 25 mg 01/31/22 06:00 01/31/22 05:53 Hydrochlorothiazide 25 Mg Tablet PO 25 mg DAILY JOSE Administration Magnesium Chloride 64 mg 01/31/22 06:00 01/31/22 05:53 Magnesium Chloride 64 Mg Delay Rel.Tablet PO 64 mg DAILY JOSE Administration Melatonin 10 mg 01/30/22 16:47 Melatonin 10 Mg Tablet PO QHS PRN Sleep Metoprolol Succinate 100 mg 01/31/22 06:00 01/31/22 05:53 Metoprolol(Xl)Succ 100 Mg Tablet PO 100 mg DAILY JOSE Administration Multivitamins/Minerals 1 tablet 01/31/22 08:00 01/31/22 07:38 Multivitamins,Ther W-Minerals Tablet PO 1 tablet DAILYCM JOSE Administration Oxycodone HCl 5 mg 01/30/22 21:07 01/31/22 04:14 Oxycodone 5 Mg Tablet PO 5 mg Q4H PRN PRN Administration Pain Score 6-10 Pantoprazole Sodium 40 mg 01/31/22 06:00 01/31/22 05:52 Pantoprazole Sodium 40 Mg Tablet PO 40 mg DAILY JOSE Administration Pramipexole Dihydrochloride 0.5 mg 01/30/22 22:00 01/30/22 21:15 Pramipexole Di-Hcl 0.5 Mg Tablet PO 0.5 mg QHS JOSE Administration Rivaroxaban 10 mg 01/31/22 17:00 Rivaroxaban 10 Mg Tablet PO 02/10/22 17:01 [facility] Senna/Docusate Sodium 2 tablet 01/30/22 21:06 Senna/Docusate Sodium 1 Tablet PO BID PRN PRN CONSTIPATION Sertraline HCl 100 mg 01/31/22 06:00 01/31/22 05:53 Sertraline 100 Mg Tablet PO 100 mg DAILY JOSE Administration Tramadol HCl 50 mg 01/30/22 21:07 Tramadol 50 Mg Tablet PO Q6H PRN PRN Pain Score 4-5 Tuberculin PPD 0.1 ml 02/07/22 10:00 Tuberculin,Purif.Prot.Deriv. 50 Tu/Ml Vial ID 02/07/22 10:01 X1 ONE Problem List (Last Reviewed 01/30/22 @ 20:[address] Rasta Rankin MD) Debility (Acute) Falls (Acute) Closed fracture of right patella (Acute) At high risk for falls (Acute) Vitamin D deficiency (Acute) Depression (Acute) Gastroesophageal reflux disease (Acute) Insomnia (Acute) Hypertension (Chronic) Hypomagnesemia (Acute) Neuropathic pain (Acute) Restless leg syndrome (Acute) Vital Signs Temp Pulse Resp BP Pulse Ox O2 Del Method 96.9 F L 65 18 122/74 H 94 Room Air 01/30/22 16:28 01/31/22 05:53 01/30/22 19:02 01/31/22 05:51 01/30/22 19:02 01/30/22 19:02 Oxygen Delivery Method Room Air Weight: 95.254 kg Body Mass Index (BMI) 37.2 Sodium 137 mmol/L (136-145) 01/31/22 05:30 Potassium 3.9 mmol/L (3.5-5.1) 01/31/22 05:30 Chloride 102 mmol/L (98-107) 01/31/22 05:30 Carbon Dioxide 29.0 mmol/L (21.0-32.0) 01/31/22 05:30 Anion Gap 6 (5-15) 01/31/22 05:30 BUN 17 mg/dL (7-18) 01/31/22 05:30 Creatinine 0.72 mg/dL (0.55-1.02) 01/31/22 05:30 Est GFR (MDRD) Af Amer 101 mL/min (>60) 01/31/22 05:30 Est GFR (MDRD) Non-Af 84 mL/min (>60) 01/31/22 05:30 BUN/Creatinine Ratio 23.7 RATIO (10-20) H 01/31/22 05:30 Glucose 91 mg/dL (74-106) 01/31/22 05:30 Assessment/Plan: 1. Pain: acetaminophen 1000mg PO Q6H PRN pain (1-3), tramadol 50mg PO Q6H PRN pain (4-5) and oxycodone 5mg PO Q4H PRN pain (6-10). ?Please continue to monitor for S/S of increased pain, PRN usage, rash, constipation, renal function, respiratory depression. 1 dose of acetaminophen and oxycodone have been used, pain 8/10 for knee, no tramadol has been used, no documented bowel movement.? 2. Bowel: senna/docusate 2 tablets PO BID PRN constipation and bisacodyl 10mg PO daily PRN constipation. Please continue to monitor for constipation and PRN usage, no documented bowel movement. No doses given yet.? 3. DVT prophylaxis: rivaroxaban 10mg PO daily x 10 days. Please continue to monitor for S/S of bleeding/DVT and hemoglobin (13.9g/dL) 4. Hypertension: metoprolol succinate 100 mg PO daily, hydrochlorothiazide 25mg PO daily, amlodipine 2.5mg PO daily. Please continue to monitor BP (122/74), HR (65), potassium (3.9mmol/L), sodium (137mmol/L), swelling and renal function. 5. GERD: pantoprazole 40 mg PO daily. Please continue to monitor for S/S of GERD, diarrhea and magnesium level (1.9 mg/dl).? 6. Restless Leg syndrome: pramipexole 0.5mg PO QHS. Please continue to monitor for S/S of restless legs syndrome.? 7. Calcium/vitamin D/vitamin B12 deficiency/nutrition: calcium/vitamin D 1 tablet PO daily, cholecalciferol 25mcg PO daily, cyanocobalamin 1000mcg PO daily and multivitamin with minerals 1T PO DAILYCM. Please continue to monitor calcium level (10.1mg/dL) and vitamin D (Last 01/27/22). Please consider ordering a vitamin B12 level if clinically appropriate as resident does not have one on file. Thanks. 8. Hypomagnesemia: magnesium chloride 64 mg PO daily. Please continue to monitor magnesium level (1.9 mg/dL 09/20/21).? 9. Insomnia: melatonin 10mg PO QHS PRN sleep. Please continue to monitor sleeping habits and PRN usage. Resident has not used yet.? Assessment/Plan for indications treated with psychotropic medications: 1. Depression: sertraline 100mg PO daily. Please see physician note regarding GDR. This medication is on the BEERs list for falls. Max daily dose is 200 mg/day. Please continue to monitor for GI side effects. 2. Neuropathic pain: gabapentin 300mg PO TIDCM. Based on the resident's CrCl of 73.0 ml/min, max dose should be 1800mg PO daily. Please continue to monitor renal function and for confusion. Not used for psychotropic effects, GDR not appropriate. This medication is on the BEERs list for falls. Please continue to monitor. Medical chart and medication regimen reviewed. The following medication irregularities or issues were identified: *1. Cyanocobalamin 1000mcg PO daily. Please consider having a level drawn as resident does not have one file Date of Note:: 01/31/22
--- NOTE | 2022-01-31 12:14 | CASEMGMT ---
Social Work Met with patient to complete initial assessment. Pt known to this worker from previous stay. Verified/updated contacts. Pt confirmed code status is DNR-CCA, no intubation. No changes to previous MOLST form. Both forms placed on chart. Explained [employer] insurance with NRD 01/31 and continued stay is not guaranteed. The goal is for pt to return home alone. However, per pt, pt has to wear immobilizer for 6 weeks and concerned about returning alone sooner than that. Discussed possible short stay at SNF and financial liability. Pt denies being able to pay OOP. SW suggested Medicaid. Pt agrees to complete application for either assistance in a SNF or in the community. SW provided Medicaid application. Pt appreciative. SW to continue to follow for DC planning. Sophia Whittington, [employer] SUPERVISOR
--- NOTE | 2022-01-31 12:45 | RAD_ITS ---
STUDY: X-RAY - RIGHT SHOULDER REASON FOR EXAM: Female, 76 years old. Pain during therapy. TECHNIQUE: 2 view(s) of the shoulder. COMPARISON: None. FINDINGS: There is moderate degenerative arthrosis of the glenohumeral articulation. Normal acromioclavicular joint. Normal acromion. Normal humeral head and visualized proximal humerus. There is periarticular soft tissue calcification consistent with a calcific tendinitis. Normal visualized pulmonary apex. RAD/Shoulder One View IMPRESSION: Osteoarthritis of the glenohumeral joint. Calcific tendinitis. Electronically Signed: Ck Gilliland MD at 14:16 EDT ,
[2022-01-31 14:41] VITALS: BP 110/72; PULSE 66; RESP 16; TEMP 36.3; O2SAT 96
[2022-01-31] MEDS: Rivaroxaban 10 MG Tablet PO (17:02)
--- NOTE | 2022-01-31 19:40 | NURSING ---
Family notified of patient on unit testing positive for Covid.
[2022-01-31] MEDS: MELATONIN 10 MG TABLET PO (20:52)
[2022-01-31] MEDS: Pramipexole Di-HCl 0.5 MG Tablet PO (20:52)
[2022-01-31] MEDS: MethylPREDNISolone DosePak 4 MG BOX PO (20:53)
[2022-01-31 22:00] VITALS: PULSE 79; RESP 16; O2SAT 94
[2022-02-01] MEDS: Pantoprazole Sodium 40 MG Tablet PO (05:46)
[2022-02-01] MEDS: amLODIPine 2.5 MG Tablet PO (05:46)
[2022-02-01] MEDS: Magnesium Chloride 64 MG Delay Rel.Tablet PO (05:46)
[2022-02-01] MEDS: Cholecalciferol (VIT D3) 25 MCG TABLET (1,000 UNITS) PO (05:46)
[2022-02-01] MEDS: hydroCHLOROthiazide 25 MG Tablet PO (05:46)
[2022-02-01] MEDS: Sertraline 100 MG Tablet PO (05:46)
[2022-02-01 05:47] VITALS: BP 130/79; PULSE 68
[2022-02-01] MEDS: Metoprolol(XL)Succ 100 MG Tablet PO (05:47)
[2022-02-01] MEDS: Gabapentin 300 MG Capsule PO ×3 (08:50→16:59)
[2022-02-01] MEDS: MethylPREDNISolone DosePak 4 MG BOX PO ×4 (08:52→21:00)
[2022-02-01] MEDS: Multivitamins,Ther W-Minerals Tablet 1 TABLET PO (08:54)
[2022-02-01] MEDS: Calcium Carb/Vitamin D 1 TABLET Tablet PO (08:54)
[2022-02-01] MEDS: Cyanocobalamin 500 MCG Tablet 1000 MCG PO (08:55)
[2022-02-01 10:00] VITALS: PULSE 78; RESP 18
[2022-02-01] MEDS: oxyCODONE 5 MG Tablet PO (12:22)
[2022-02-01 14:59] VITALS: BP 119/64; PULSE 90; RESP 14; TEMP 36.7; O2SAT 96
[2022-02-01] MEDS: Rivaroxaban 10 MG Tablet PO (17:00)
[2022-02-01] MEDS: Pramipexole Di-HCl 0.5 MG Tablet PO (21:01)
[2022-02-01] MEDS: MELATONIN 10 MG TABLET PO (21:08)
[2022-02-02] MEDS: Pantoprazole Sodium 40 MG Tablet PO (05:14)
[2022-02-02] MEDS: Cholecalciferol (VIT D3) 25 MCG TABLET (1,000 UNITS) PO (05:14)
[2022-02-02] MEDS: Magnesium Chloride 64 MG Delay Rel.Tablet PO (05:14)
[2022-02-02] MEDS: Sertraline 100 MG Tablet PO (05:15)
[2022-02-02 05:16] VITALS: BP 140/85; PULSE 59
[2022-02-02] MEDS: amLODIPine 2.5 MG Tablet PO (05:16)
[2022-02-02] MEDS: Metoprolol(XL)Succ 100 MG Tablet PO (05:16)
[2022-02-02] MEDS: hydroCHLOROthiazide 25 MG Tablet PO (05:19)
[2022-02-02] MEDS: Gabapentin 300 MG Capsule PO ×3 (08:25→18:20)
[2022-02-02] MEDS: Multivitamins,Ther W-Minerals Tablet 1 TABLET PO (08:26)
[2022-02-02] MEDS: MethylPREDNISolone DosePak 4 MG BOX PO ×4 (08:26→22:28)
[2022-02-02] MEDS: Calcium Carb/Vitamin D 1 TABLET Tablet PO (08:26)
[2022-02-02] MEDS: Cyanocobalamin 500 MCG Tablet 1000 MCG PO (08:27)
--- NOTE | 2022-02-02 14:24 | DS.PCM_ITS ---
Providers Date of Admission: 01/30/22 Primary Care Physician: Dr. Cheryl Russell DO Reason For Visit: RT KNEE SURGERY Diagnosis Discharge Diagnosis (1) Debility: Status: Acute Code(s): R53.81 - Other malaise (2) Falls: Status: Acute Code(s): W19.XXXA - Unspecified fall, initial encounter (3) Closed fracture of right patella: Status: Acute Code(s): S82.001A - Unspecified fracture of right patella, initial encounter for closed fracture (4) At high risk for falls: Status: Acute Code(s): Z91.81 - History of falling (5) Restless leg syndrome: Status: Acute Code(s): G25.81 - Restless legs syndrome (6) Neuropathic pain: Status: Acute Code(s): M79.2 - Neuralgia and neuritis, unspecified (7) Hypomagnesemia: Status: Acute Code(s): E83.42 - Hypomagnesemia (8) Hypertension: Status: Chronic Code(s): I10 - Essential (primary) hypertension (9) Insomnia: Status: Acute Code(s): G47.00 - Insomnia, unspecified (10) Gastroesophageal reflux disease: Status: Acute Code(s): K21.9 - Gastro-esophageal reflux disease without esophagitis (11) Depression: Status: Acute Code(s): F32.A - Depression, unspecified (12) Vitamin D deficiency: Status: Acute Code(s): E55.9 - Vitamin D deficiency, unspecified Plan 76 year old female with below past medical history hospitalized for intractable right knee pain secondary to right patella fracture, admitted to TCU with debility, here for rehabilitation, strengthening, prior to discharge home alone. * Debility - PT/OT. * Pain - Tylenol 1000mg q6h prn pain (1-3), Tramadol 50mg q6h prn pain (4-5), Oxycodone 5mg q4h prn pain (6-10). * Bowel - Senna/colace 2 tablets bid prn, Dulcolax 10mg daily prn. * Adult immunization - Administer pneumonia vaccine, covid19 vaccine, flu vaccine as appropriate. * DVT prophylaxis - HAS-BLED 1 intermediate risk of bleeding, Yessenia 7 high risk of DVT, overall risk moderate, Rx Xarelto 10mg daily x 10 days. * Hypertension - Metoprolol succinate 100mg daily, HCTZ 25mg daily, Amlodipine 2.5mg daily. * Calcium deficiency - Calcium D 1 tablet daily. * Vitamin B12 deficiency - B12 1000mcg daily. * Neuropathic pain - Gabapentin 300mg tidcm. * Hypomagnesium - Magnesium chloride 64mg daily. * Insomnia - Melatonin 10mg qhs prn. * Nutrition - MVI daily. * GERD - Pantoprazole 40mg daily. * Restless Leg syndrome - Mirapex 0.5mg qhs. 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 * Vitamin D deficiency - D3 25mcg daily. Medications at Discharge Home Medications amlodipine 2.5 mg tablet 2.5 mg PO DAILY Heart 08/04/19 calcium carbonate-vitamin D3 600 mg-125 unit tablet 1 tab PO 0800 Supplement 08/04/19 cyanocobalamin (vitamin B-12) 500 mcg tablet 1,000 mcg PO DAILY@0800 supplement 08/04/19 hydrochlorothiazide 25 mg tablet 25 mg PO DAILY Heart 08/04/19 melatonin 5 mg tablet 10 mg PO QHS PRN Sleep 08/04/19 multivitamin with minerals 1 tab PO DAILY supplement 08/04/19 omeprazole 40 mg capsule,delayed release 40 mg PO DAILY GERD 08/04/19 sertraline 100 mg tablet 100 mg PO DAILY depression 08/04/19 acetaminophen 500 mg tablet 1,000 mg PO Q8H PRN Pain 06/06/21 gabapentin 300 mg capsule 300 mg PO TIDCM pain 10/26/21 magnesium chloride 64 mg (magnesium chloride) tablet,delayed release (Mag 64) 64 mg PO DAILY supplement 10/26/21 cholecalciferol (vitamin D3) 25 mcg (1,000 unit) tablet 25 mcg PO DAILY SUPPLEMENT 01/26/22 metoprolol succinate 50 mg tablet,extended release 24 hr 100 mg PO DAILY HEART 01/26/22 pramipexole 0.5 mg tablet 0.5 mg PO QHS RLS 01/26/22 tramadol 50 mg tablet 50 mg PO Q6H PRN PRN Pain Score 1-5 3 days #12 tabs 01/30/22 oxycodone 5 mg tablet 5 - 10 mg PO Q4H PRN PRN Pain Score 6-10 14 days #56 tabs 02/02/22 Hospital Course Operations None Procedures None Summary of Care Provided Minutes Spent on Discharge: 35 Hospital Course: 76 year old female with below past medical history hospitalized for intractable right knee pain secondary to right patella fracture, admitted to TCU with debility, here for rehabilitation, strengthening, prior to discharge home alone. Discharge home alone 02/07/2022, [facility] PT/OT/GOMEZ, 3-in-1 commode. Physical Exam Const alert General Appearance: cooperative HEENT normocephalic Eyes PERRL and EOMs intact bilaterally Neck supple, no JVD and no carotid bruits Resp normal respiratory effort, normal air movement and clear to auscultation bilaterally Cardio regular rate and regular rhythm GI normal to inspection, nondistended, normoactive bowel sounds, non-tender and non-distended Extremity normal capillary refill General Extremity: Negative for edema Skin no rashes or lesions noted General Skin Exam: no breakdown Psych affect normal Appearance: appropriate Weight / BMI Weight Weight: 95.254 kg Body Mass Index (BMI) 37.2 ABG / Lab / Microbiology Data Result Diagrams: 01/31/22 05:30 01/31/22 05:30 D/C Instructions Discharge Diet: No restrictions Discharge Activity: Return to Normal Activity, May Shower and Use Walker Weight Bearing Status: Weight bearing as tolerated Call your doctor if you observe: Fever of 101 or Higher, Inability to urinate, Inability to have a bowel movement, Shortness of breath, Dizziness, Fainting spells, Swelling in the ankles, Chest pain and Uncontrolled pain Additional Instructions: Discharge home alone 02/07/2022, [facility] PT/OT/GOMEZ, 3-in-1 commode. Please Follow Up With: Dr Stark When: As scheduled. Meaningful Use Info Meaningful Use Diagnoses (Choose all that apply): None applicable Discharge Plan Admission Admit Date/Time: 01/30/22 15:45 Primary Reason for Your Visit: Debility. Attending Provider: Rasta Rankin Chi Primary Care Provider: Cheryl Russell Instructions Additional Instructions / Restrictions: Discharge home alone 02/07/2022, [facility] PT/OT/GOMEZ, 3-in-1 commode. Discharge Orders/Prescriptions Prescriptions: Continued sertraline 100 MG tablet 100 mg PO DAILY amlodipine 2.5 MG tablet 2.5 mg PO DAILY omeprazole 40 MG capsule,delayed release(DR/EC) 40 mg PO DAILY cyanocobalamin (vitamin B-12) 500 MCG tablet 1,000 mcg PO DAILY@0800 hydrochlorothiazide 25 MG tablet 25 mg PO DAILY multivitamin with minerals 1 EACH tablet 1 tab PO DAILY calcium carbonate-vitamin D3 1 EACH tablet 1 tab PO 0800 melatonin 5 MG tablet 10 mg PO QHS PRN (Reason: Sleep) acetaminophen 500 MG tablet 1,000 mg PO Q8H PRN (Reason: Pain) gabapentin 300 mg capsule 300 mg PO TIDCM Mag 64 64 mg tablet,delayed release (DR/EC) 64 mg PO DAILY metoprolol succinate 50 mg tablet extended release 24 hr 100 mg PO DAILY pramipexole 0.5 mg tablet 0.5 mg PO QHS cholecalciferol (vitamin D3) 25 mcg (1,000 unit) Tablet 25 mcg PO DAILY tramadol 50 mg Tablet 50 mg PO Q6H PRN PRN (Reason: Pain Score 1-5) 3 Days Qty: 12 0RF oxycodone 5 mg Tablet 5 - 10 mg PO Q4H PRN PRN (Reason: Pain Score 6-10) 14 Days Qty: 56 0RF Referrals / Follow Up: Cheryl Russell DO [Primary Care Provider] - Louie Stark DO [Med Staff - Active Staff] - 02/15/22 9:00 am Disposition Disposition (needs filled in before D/C Order can be placed): Home Health Service
[2022-02-02 15:20] VITALS: BP 143/75; PULSE 64; RESP 17; TEMP 36.2; O2SAT 90
--- NOTE | 2022-02-02 16:15 | CASEMGMT ---
Addendum entered by Sophia Whittington 02/05/22 08:30: Pt requesting 3-in-1 commode. Faxed script to [facility]. Original Note: Social Work Insurance issued LCD 02/06, DC 02/07. Spoke with pt on DC date. Explained appeals right and options to DC home or SNF. Pt has not completed [employer] application but is wanting to try it at home, per pt. Pt still wishes to complete [employer] radha to determine eligibility for the community. SW agreed and can fax to [facility] once completed prior to DC. Pt does not have any DME needs and electing HHC. SW offered to send [facility] list of providers including quality and resource use data and consistent with the patient?s preferred geographic region, medical needs, and insurance network. Pt declined and prefers to use [facility] whom [facility] used prior. Pt requesting a FOOD SERVICE as well. SW made verbal referral to [facility] PT/OT/GOMEZ. Family to transport. Plan: DC home alone 02/07, [facility] PT/OT/GOMEZ DEVANG WebbW
[2022-02-02] MEDS: Rivaroxaban 10 MG Tablet PO (18:20)
[2022-02-02] MEDS: Pramipexole Di-HCl 0.5 MG Tablet PO (22:29)
[2022-02-02] MEDS: MELATONIN 10 MG TABLET PO (22:34)
[2022-02-02 23:00] VITALS: PULSE 67; RESP 16; O2SAT 96
[2022-02-03] MEDS: oxyCODONE 5 MG Tablet PO (00:36)
[2022-02-03 06:29] VITALS: BP 155/79; PULSE 60
[2022-02-03] MEDS: Pantoprazole Sodium 40 MG Tablet PO (06:29)
[2022-02-03] MEDS: Magnesium Chloride 64 MG Delay Rel.Tablet PO (06:29)
[2022-02-03] MEDS: Cholecalciferol (VIT D3) 25 MCG TABLET (1,000 UNITS) PO (06:29)
[2022-02-03] MEDS: hydroCHLOROthiazide 25 MG Tablet PO (06:29)
[2022-02-03] MEDS: Metoprolol(XL)Succ 100 MG Tablet PO (06:29)
[2022-02-03] MEDS: amLODIPine 2.5 MG Tablet PO (06:29)
[2022-02-03] MEDS: Sertraline 100 MG Tablet PO (06:29)
[2022-02-03] MEDS: Calcium Carb/Vitamin D 1 TABLET Tablet PO (09:08)
[2022-02-03] MEDS: Multivitamins,Ther W-Minerals Tablet 1 TABLET PO (09:08)
[2022-02-03] MEDS: MethylPREDNISolone DosePak 4 MG BOX PO ×3 (09:08→20:31)
[2022-02-03] MEDS: Cyanocobalamin 500 MCG Tablet 1000 MCG PO (09:08)
[2022-02-03] MEDS: Acetaminophen 500 MG Tablet 1000 MG PO (09:09)
[2022-02-03] MEDS: Gabapentin 300 MG Capsule PO ×3 (09:09→16:50)
[2022-02-03 10:00] VITALS: RESP 18
[2022-02-03 14:47] VITALS: BP 135/80; PULSE 57; RESP 14; O2SAT 94
[2022-02-03] MEDS: Rivaroxaban 10 MG Tablet PO (16:50)
[2022-02-03] MEDS: Pramipexole Di-HCl 0.5 MG Tablet PO (20:31)
[2022-02-04 06:51] VITALS: BP 142/83; PULSE 69
[2022-02-04] MEDS: Sertraline 100 MG Tablet PO (06:51)
[2022-02-04] MEDS: Cholecalciferol (VIT D3) 25 MCG TABLET (1,000 UNITS) PO (06:51)
[2022-02-04] MEDS: Pantoprazole Sodium 40 MG Tablet PO (06:51)
[2022-02-04] MEDS: Metoprolol(XL)Succ 100 MG Tablet PO (06:51)
[2022-02-04] MEDS: hydroCHLOROthiazide 25 MG Tablet PO (06:52)
[2022-02-04] MEDS: Magnesium Chloride 64 MG Delay Rel.Tablet PO (06:52)
[2022-02-04] MEDS: amLODIPine 2.5 MG Tablet PO (06:52)
[2022-02-04] MEDS: Multivitamins,Ther W-Minerals Tablet 1 TABLET PO (08:33)
[2022-02-04] MEDS: MethylPREDNISolone DosePak 4 MG BOX PO ×2 (08:33→19:58)
[2022-02-04] MEDS: Gabapentin 300 MG Capsule PO ×3 (08:33→17:54)
[2022-02-04] MEDS: Calcium Carb/Vitamin D 1 TABLET Tablet PO (08:33)
[2022-02-04] MEDS: Cyanocobalamin 500 MCG Tablet 1000 MCG PO (08:33)
[2022-02-04 16:00] VITALS: BP 144/82; PULSE 70; RESP 18; TEMP 36.7; O2SAT 90
[2022-02-04] MEDS: Rivaroxaban 10 MG Tablet PO (17:54)
[2022-02-04] MEDS: Pramipexole Di-HCl 0.5 MG Tablet PO (19:58)
[2022-02-04 21:41] VITALS: PULSE 63; RESP 18; O2SAT 98
[2022-02-04] MEDS: oxyCODONE 5 MG Tablet PO (23:01)
[2022-02-04] MEDS: MELATONIN 10 MG TABLET PO (23:03)
[2022-02-05] MEDS: Cholecalciferol (VIT D3) 25 MCG TABLET (1,000 UNITS) PO (05:00)
[2022-02-05] MEDS: Sertraline 100 MG Tablet PO (05:00)
[2022-02-05 05:01] VITALS: BP 146/85; PULSE 67
[2022-02-05] MEDS: Metoprolol(XL)Succ 100 MG Tablet PO (05:01)
[2022-02-05] MEDS: Pantoprazole Sodium 40 MG Tablet PO (05:01)
[2022-02-05] MEDS: amLODIPine 2.5 MG Tablet PO (05:01)
[2022-02-05] MEDS: hydroCHLOROthiazide 25 MG Tablet PO (05:01)
[2022-02-05] MEDS: Magnesium Chloride 64 MG Delay Rel.Tablet PO (05:01)
[2022-02-05] MEDS: MethylPREDNISolone DosePak 4 MG BOX PO (08:32)
[2022-02-05] MEDS: Gabapentin 300 MG Capsule PO ×3 (08:32→16:54)
[2022-02-05] MEDS: Calcium Carb/Vitamin D 1 TABLET Tablet PO (08:33)
[2022-02-05] MEDS: Multivitamins,Ther W-Minerals Tablet 1 TABLET PO (08:33)
[2022-02-05] MEDS: Cyanocobalamin 500 MCG Tablet 1000 MCG PO (08:33)
[2022-02-05 15:03] VITALS: BP 126/85; PULSE 75; RESP 14; TEMP 36.9; O2SAT 97
--- NOTE | 2022-02-05 16:24 | CHAPLAIN ---
Type of Pastoral Visit _x__ Initial Visit ___ Follow-up Visit ___ On-call Visit ___ General Patient Visit ___ Spiritual Assessment ___ Family Conference ___ Bereavement ___ Rapid Response ___ Code Blue ___ Other (describe below) Pastoral Care Referral From _x__ Patient ___ Family ___ Nurse ___ Physician ___ Plant Breeder Scientist ___ Site Acquisition Manager ___ Other (describe below) Sacrament/Intervention _x__ Active listening ___ Anointing ___ Sikh ___ Bereavement ___ Communion _x__ Leti exploration ___ _x__ Life review _x__ Prayer ___ Reconciliation ___ Sacrament of Sick _x__ Supportive presence ___ Wedding ___ Other (describe below) Pastoral Comments patient has been seen numerous times in recent admissions and as recently as last week in [facility]; pt has concerns about her yazdanism and she would like to find a new yazdanism; these thoughts result in much reflection and processing of what she might do; listening, affirming, and showing care are involved; pt requests prayer support for healing, going home, and her yazdanism decisions among all the other things; pt expresses appreciation for the visits and concerns
[2022-02-05] MEDS: Rivaroxaban 10 MG Tablet PO (16:54)
[2022-02-05] MEDS: Pramipexole Di-HCl 0.5 MG Tablet PO (16:54)
--- NOTE | 2022-02-05 17:25 | NURSING ---
Patient and family made aware of positive staff member.
[2022-02-05 22:04] VITALS: PULSE 74; O2SAT 98
[2022-02-06 05:34] VITALS: BP 131/80; PULSE 70
[2022-02-06] MEDS: Metoprolol(XL)Succ 100 MG Tablet PO (05:34)
[2022-02-06] MEDS: Pantoprazole Sodium 40 MG Tablet PO (05:34)
[2022-02-06] MEDS: hydroCHLOROthiazide 25 MG Tablet PO (05:34)
[2022-02-06] MEDS: Magnesium Chloride 64 MG Delay Rel.Tablet PO (05:34)
[2022-02-06] MEDS: Sertraline 100 MG Tablet PO (05:34)
[2022-02-06] MEDS: amLODIPine 2.5 MG Tablet PO (05:34)
[2022-02-06] MEDS: Cholecalciferol (VIT D3) 25 MCG TABLET (1,000 UNITS) PO (05:35)
[2022-02-06] MEDS: Gabapentin 300 MG Capsule PO ×3 (07:50→17:25)
[2022-02-06] MEDS: Multivitamins,Ther W-Minerals Tablet 1 TABLET PO (07:51)
[2022-02-06] MEDS: Cyanocobalamin 500 MCG Tablet 1000 MCG PO (07:51)
[2022-02-06] MEDS: Calcium Carb/Vitamin D 1 TABLET Tablet PO (07:51)
[2022-02-06] MEDS: Acetaminophen 500 MG Tablet 1000 MG PO (08:41)
[2022-02-06 14:34] VITALS: BP 143/86; PULSE 80; RESP 14; TEMP 36.6; O2SAT 97
--- NOTE | 2022-02-06 15:19 | CASEMGMT ---
Social Work BIMS () and PHQ-9 (07/06) completed for MDS assessment. Sophia Whittington MSW PURCHASING AGENT
[2022-02-06] MEDS: Pramipexole Di-HCl 0.5 MG Tablet PO (17:25)
[2022-02-06] MEDS: Rivaroxaban 10 MG Tablet PO (17:25)
--- NOTE | 2022-02-06 17:30 | NURSING ---
Patient and family made aware of positive staff member.
[2022-02-06 20:59] VITALS: PULSE 71; RESP 16; O2SAT 95
[2022-02-06] MEDS: oxyCODONE 5 MG Tablet PO (23:22)
[2022-02-07 05:31] LABS: Absolute Lymphocyte Count 2.07 X10^3/uL (0.83-4.51); Absolute Neutrophil Count 3.6 X10^3/uL (2.0-7.7); Basophil# 0.05 X10^3/uL; Basophil% 0.8 % (0-1); Eosinophil# 0.21 X10^3/uL; Eosinophils% 3.2 % (0-5); Hematocrit 41.4 % (37-47); Hemoglobin 12.9 g/dL (12.0-15.0); Lymphocyte # 2.07 X10^3/ul (0.83-4.51); Lymphocyte % 31.2 % (19-41); Mean Corp Hgb Conc 31.2 g/dL (32-36); Mean Corpuscular Hgb 26.3 pg (27.0-32.0); Mean Corpuscular Volume 84.3 fL (81-99); Mean Platelet Vol. 9.2 fl (6.2-12.0); Monocyte# 0.64 X10^3/uL; Monocyte% 9.7 % (0-10); NRBC Flagged by Analyzer 0 % (0-5); Neutrophil # 3.63 X10^3/uL (2.7-7.7); Neutrophil % 54.6 % (47-70); Platelet Count 183 K/mm3 (150-450); RBC Distribution Width CV 14.7 % (11.6-14.6); Red Blood Count 4.91 M/mm3 (4.2-5.4); White Blood Count 6.6 K/mm3 (4.4-11.0)
[2022-02-07 05:52] LABS: Anion Gap 7 (5-15); BUN 21 mg/dL (7-18); BUN/Creat Ratio 35.7 RATIO (10-20); Calcium,Total 9.5 mg/dL (8.5-10.1); Chloride 102 mmol/L (98-107); Creatinine, Serum 0.59 mg/dL (0.55-1.02); EST Glomerular Filtration Rate 105 mL/min (>60); Est Glom Filt Rate - Afr Amer 127 mL/min (>60); Estimated Creatinine Clearance 39.59 ml/min; Glucose 91 mg/dL (74-106); Potassium 3.4 mmol/L (3.5-5.1); Sodium Level 138 mmol/L (136-145)
[2022-02-07] MEDS: amLODIPine 2.5 MG Tablet PO (06:22)
[2022-02-07] MEDS: Pantoprazole Sodium 40 MG Tablet PO (06:22)
[2022-02-07] MEDS: Magnesium Chloride 64 MG Delay Rel.Tablet PO (06:22)
[2022-02-07] MEDS: hydroCHLOROthiazide 25 MG Tablet PO (06:22)
[2022-02-07 06:23] VITALS: BP 149/77; PULSE 71
[2022-02-07] MEDS: Sertraline 100 MG Tablet PO (06:23)
[2022-02-07] MEDS: Metoprolol(XL)Succ 100 MG Tablet PO (06:23)
[2022-02-07] MEDS: Cholecalciferol (VIT D3) 25 MCG TABLET (1,000 UNITS) PO (06:23)
[2022-02-07] MEDS: Cyanocobalamin 500 MCG Tablet 1000 MCG PO (08:00)
[2022-02-07] MEDS: Calcium Carb/Vitamin D 1 TABLET Tablet PO (08:00)
[2022-02-07] MEDS: Gabapentin 300 MG Capsule PO ×2 (08:00→11:57)
[2022-02-07] MEDS: Multivitamins,Ther W-Minerals Tablet 1 TABLET PO (08:00)
[2022-02-07 08:02] VITALS: BP 150/87; PULSE 87; RESP 14; TEMP 36.6; O2SAT 98
[2022-02-07 08:44] VITALS: PULSE 72; RESP 16; O2SAT 98
[2022-02-07 12:19] VITALS: BP 147/78; PULSE 64; RESP 16; TEMP 36.6; O2SAT 98
--- NOTE | 2022-02-09 11:13 | MDS.RN ---
Information for the mds was obtained from review of the clinical record, interview of resident, staff, and direct observation of resident's care.
== END 2022-02-07 13:31 | disposition home health service (06) | DRG 561 ==
PROVIDERS: Admitting Provider Family Medicine Geriatric Medicine; PCP Internal Medicine; Visit Provider Family Medicine Geriatric Medicine
DX: S82.001D Unspecified fracture of right patella, subsequent encounter for closed fracture with routine healing (principal); E53.8 Deficiency of other specified B group vitamins; E55.9 Vitamin D deficiency, unspecified; K21.9 Gastro-esophageal reflux disease without esophagitis; G62.9 Polyneuropathy, unspecified; G25.81 Restless legs syndrome; I10 Essential (primary) hypertension; W19.XXXD Unspecified fall, subsequent encounter; M19.90 Unspecified osteoarthritis, unspecified site; F32.A Depression, unspecified; Z87.891 Personal history of nicotine dependence; Z79.899 Other long term (current) drug therapy
CPT/HCPCS: 36415; 73020; 80048; 85025; 87811; 97110; 97116; 97162; 97166; 97530; 97535; 97802

== ENCOUNTER → 2022-02-21 | Outpatient (CLI) | payer MEDICARE, SELFPAY ==
[2022-02-21 17:31] LABS: Absolute Lymphocyte Count 1.75 X10^3/uL (0.83-4.51); Absolute Neutrophil Count 3.2 X10^3/uL (2.0-7.7); Basophil# 0.04 X10^3/uL; Basophil% 0.7 % (0-1); Eosinophil# 0.12 X10^3/uL; Eosinophils% 2.1 % (0-5); Hematocrit 41.5 % (37-47); Lymphocyte # 1.75 X10^3/ul (0.83-4.51); Lymphocyte % 31.3 % (19-41); Mean Corp Hgb Conc 31.3 g/dL (32-36); Mean Corpuscular Hgb 26.1 pg (27.0-32.0); Mean Corpuscular Volume 83.2 fL (81-99); Mean Platelet Vol. 9.9 fl (6.2-12.0); Monocyte# 0.44 X10^3/uL; Monocyte% 7.9 % (0-10); NRBC Flagged by Analyzer 0 % (0-5); Neutrophil # 3.23 X10^3/uL (2.7-7.7); Neutrophil % 57.6 % (47-70); Platelet Count 176 K/mm3 (150-450); RBC Distribution Width CV 14.8 % (11.6-14.6); RBC Distribution Width SD 45.1 fl (35.1-43.9); Red Blood Count 4.99 M/mm3 (4.2-5.4); White Blood Count 5.6 K/mm3 (4.4-11.0)
[2022-02-21 17:41] LABS: CRP < 2.90 mg/L (0.0-3.0)
[2022-02-21 17:44] LABS: Erythrocyte Sedimentation Rate 44 mm/hr (0-30)
== END | disposition home or self-care (01) ==
LOC: MTLAB 14:25
PROVIDERS: PCP Internal Medicine; Referring Provider Orthopaedic Surgery; Visit Provider Orthopaedic Surgery
DX: Z96.652 Presence of left artificial knee joint (principal)
CPT/HCPCS: 36415; 85025; 85652; 86140

== ENCOUNTER → 2022-04-05 | Outpatient (CLI) | payer MEDICARE, SELFPAY ==
[2022-04-05 18:47] LABS: AUTO B FLUID DILUENT BKGD CT WBC <0.1 RBC <0.01 (W<.1,R<.01); Color / Synovial Fluid Red (Pale Yellow); Source / Synovial Fluid R KNEE
[2022-04-05 18:48] LABS: Appearance /Synovial Fluid Hazy (CLEAR); RBC /Synovial Fluid 0.115 10^6/uL (0); Synovial Fld Mononuclear WBC # 0.518 10^3/ul; Synovial Fld Mononuclear WBC % 22.4 %; Synovial Fld Polynuclear WBC # 1.795 10^3/uL; Synovial Fld Polynuclear WBC % 77.6 %
[2022-04-05 19:21] LABS: Lymph 2 %; Neutrophil 79 % (0-25)
[2022-04-05 19:22] LABS: Body Fluid QC Type(s) BF1Q; Monocyte /Synovial Fluid 19 %
[2022-04-09 09:34] LABS: Pathologist Comment Reviewed
== END | disposition home or self-care (01) ==
LOC: LABSPEC 16:34
PROVIDERS: PCP Internal Medicine; Visit Provider Specialist
DX: Z96.651 Presence of right artificial knee joint (principal)
CPT/HCPCS: 87015; 87070; 87075; 87101; 87116; 87205; 87206; 89050; 89051

== ENCOUNTER 2022-05-10 11:01 | Inpatient (IN) | payer MEDICARE, SELFPAY ==
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
[2022-04-27 12:23] LABS: Absolute Lymphocyte Count 1.69 X10^3/uL (0.83-4.51); Absolute Neutrophil Count 3.4 X10^3/uL (2.0-7.7); Basophil# 0.05 X10^3/uL; Basophil% 0.9 % (0-1); Eosinophil# 0.12 X10^3/uL; Eosinophils% 2.1 % (0-5); Hematocrit 41.8 % (37-47); Hemoglobin 13.2 g/dL (12.0-15.0); Lymphocyte # 1.69 X10^3/ul (0.83-4.51); Lymphocyte % 29.1 % (19-41); Mean Corp Hgb Conc 31.6 g/dL (32-36); Mean Corpuscular Hgb 27.2 pg (27.0-32.0); Monocyte# 0.49 X10^3/uL; Monocyte% 8.4 % (0-10); NRBC Flagged by Analyzer 0 % (0-5); Neutrophil # 3.43 X10^3/uL (2.7-7.7); Neutrophil % 59.2 % (47-70); Platelet Count 183 K/mm3 (150-450); RBC Distribution Width CV 14.7 % (11.6-14.6); RBC Distribution Width SD 46.4 fl (35.1-43.9); Red Blood Count 4.86 M/mm3 (4.2-5.4); White Blood Count 5.8 K/mm3 (4.4-11.0)
[2022-04-27 12:34] LABS: Albumin, Serum 3.7 g/dL (3.2-5.0); Anion Gap 4 (5-15); BUN 22 mg/dL (7-18); BUN/Creat Ratio 36.5 RATIO (10-20); Calcium,Total 10.2 mg/dL (8.5-10.1); Chloride 102 mmol/L (98-107); EST Glomerular Filtration Rate 102 mL/min (>60); Est Glom Filt Rate - Afr Amer 124 mL/min (>60); Glucose 93 mg/dL (74-106); Potassium 4.2 mmol/L (3.5-5.1); Sodium Level 137 mmol/L (136-145)
[2022-04-27 12:47] LABS: Hemoglobin A1c 5.4 % (3.8-5.6)
[2022-04-27 13:44] LABS: Magnesium 2.3 mg/dL (1.6-2.6)
[2022-05-10] VITALS (15 sets, daily range): BP systolic 76–132; BP diastolic 51–97; PULSE 50–73; RESP 14–18; TEMP 34.8–36.6; O2SAT 92–100; BMI 39.1
[2022-05-10] MEDS: Lactated Ringers 1,000 ML 999 ML IV ×2 (11:44→13:45)
[2022-05-10] MEDS: Acetaminophen 500 MG Tablet 1000 MG PO ×2 (11:45→21:58)
[2022-05-10] MEDS: Celecoxib 200 MG Capsule 400 MG PO (11:45)
[2022-05-10] MEDS: Magnesium 1 GM over 15 mins IV (11:45)
[2022-05-10] MEDS: Gabapentin 600 MG Tablet PO (11:46)
[2022-05-10 11:50] LABS: Bedside Glucose 124 mg/dL (74-106)
[2022-05-10] MEDS: Cefazolin 2 GM in 0.9% Normal Saline 100 ML IV (13:31)
[2022-05-10] MEDS: TXA 1000mg in NS100 100ml (IVPB at Incision) 660 MG IV (13:45)
--- NOTE | 2022-05-10 13:52 | PCM.PN.HOSP ---
Subjective Subjective Patient postoperatively seen in the PACU with no complaints at that time, fatigued but denies any current complaints and spinal is slowly wearing off. She is able to feel me touching her feet and slowly able to wiggle her toes. Patient denies fevers, chills, nausea, emesis, abdominal pain, chest pain or dyspnea. Objective Data Objective Data Vital Signs: Vital Signs Temp Pulse Resp BP Pulse Ox O2 Del Method 97.3 F L 73 18 132/82 H 100 Room Air 05/10/22 11:25 05/10/22 11:25 05/10/22 11:25 05/10/22 11:25 05/10/22 11:25 05/10/22 11:25 Oxygen Delivery Method Room Air Weight: 213 lb 13.574 oz Body Mass Index (BMI) 39.1 Lab / Micro Data Result Diagrams: 04/27/22 11:14 04/27/22 11:14 Labs: Laboratory Results - last 24 hr 05/10/22 11:24: POC Glucose 124 H Micro: Microbiology 04/27/22 11:14 Swab (Method) Nasal Screen MRSA/MSSA - Final Physical Exam Narrative Physical Examination: General: Awake, alert, oriented x 3, fatigued, laying in the PACU bed, denies any pain at this time, spinal wearing off. Skin: Normal color, normal turgor, no icterus, no cyanosis except for recent left knee surgery with dressings in place, no drainage. HEENT: AT/NC, EOMI, PERRLA, mildly dry MM. Lungs: Mildly diminished, greater bases, poor effort, no rales, ronchi or wheezing. Heart: Regular rate and rhythm; no gallop, rub audible. Abdomen: Soft, obese, NTTP, ND, distant normal BS. Extremities: No cyanosis, no clubbing, bilateral mild ankle edema, not markedly pitting, status post left knee surgery with dressings in place, no drainage Neurological: Patient awake, alert, oriented as noted, cognitive function intact; pupils equally reactive to light and accommodation, cranial nerves II-XII grossly normal, moving all 4 extremities except limited bilateral lower extremity currently only moving her toes with spinal slowly wearing off, accordingly strength severely global decreased. Psychiatric: Affect appears fatigued otherwise normal, no acute evidence of depressive or anxiety feelings. Assessment & Plan Assessment/Plan (1) Infected prosthetic knee joint: PLAN: Plan The patient is a 77 y/o F w/ PMHx: GERD, Former tobacco use, Obesity, HTN, HLD, Depression and Anxiety, RLS who presents to the [facility] on 05/10/22 for planned removal left total knee arthroplasty with placement of antibiotic spacer per Facundo Lyn secondary to ongoing progressively worsening pain to the L knee, especially with weight bearing. #1. 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 Loredo for planned 05/10/22 removal left total knee arthroplasty with placement of antibiotic spacer, Infectious disease consulted per ID and pending w/ abx therapy per their discretion, post-operative pain management, bowel regimen, DVT Prophylaxis, PT/OT/CM per Orthopedic surgery discretion. #2. Hypertension: Continue home regimen including hydrochlorothiazide, amlodipine, PRN hydralazine. #3. Hyperlipidemia: Not on regimen, defer to outpatient. #5. Anxiety and depression: We will continue patient home sertraline regimen. #6. Restless leg syndrome: We will continue patient home nightly pramipexole regimen. #7. Former tobacco use: Encourage continued tobacco cessation. #8. GERD: We will continue patient home PPI. #9. DVT prophylaxis: SCDs, chemoprophylaxis per surgery discretion given recent OR. Charges/Coding Visit Charges Inpatient E&M: [address] [facility] L3
[2022-05-10] MEDS: Cefazolin 1 GM/5 ML Vial 2 GM OPERA.SITE (15:01)
[2022-05-10] MEDS: Vancomycin IV 1,000 MG/20 ML Vial 6000 MG OPERA.SITE (15:01)
[2022-05-10] MEDS: Lactated Ringers 1,000 ML 125 ML IV (15:30)
[2022-05-10] MEDS: TXA 1000mg in NS100 100ml (IVPB at Closure) 660 MG IV (15:30)
--- NOTE | 2022-05-10 15:53 | PCM.OPRPT ---
Report of Operation Date of Procedure: 05/10/22 Pre-Operative Diagnosis: Left knee periprosthetic joint infection Post-Operative Diagnosis: Left knee periprosthetic joint infection Surgery/Procedure Performed:: Left knee total knee explantation with placement of antibiotic spacer Left knee placement of nonbiodegradable antibiotic delivery system Description of Surgical Findings:: Antibiotic delivery dowels were placed up the femoral and down the tibial canal. Intraoperatively synovium grossly appeared infected with significantly cloudy synovial fluid. Surgeon: Malcom Loredo [employer] professional: Lewis Morales Type of Anesthesia: Spinal Anesthesiologist: Yasmani Ramírez Special Medications: 2 g Ancef, 1 g TXA at incision, 1 g TXA closure Specimen's removed: 3 separate specimens were sent to microbiology Estimated Blood Loss (mL): 200 Fluids Replaced: 1000 mL crystalloid Description of Procedure: Implants used: Femur: Cruciate retaining size 3 distal femoral component Santiago triathlon with 5 mm augments medially and laterally distally Tibia: 4 x 16 mm Santiago triathlon all polyethylene tibia Brief history operative indications: 77-year-old female who presented to my office with left knee pain. She had had a total knee replacement earlier this year with my partner. She continued to have knee pain. X-ray showed progression of radiographic lucencies consistent with tibial loosening and subsidence. She was worked up for infection. MSIS criteria from 2018 met culture-negative criteria for infection. Based on this I recommended we proceed with a two-stage revision which consisted of explantation and placement of articulating antibiotic spacer followed by revision total knee replacement after a course of IV antibiotics and clearance of the infection. Patient was explained the risk of the procedure included but were not limited to blood loss, DVTs, PEs, nervous damage, infection, the risk of anesthesia including loss of life as well as fractures and repeat surgery related to continued infection. Patient demonstrated understanding wish to proceed. Procedure: On the date of procedure patient's left lower extremity was marked in the preoperative area. The patient was then taken back to the operating room where the patient was placed on the table in the supine position. All bony prominences were identified a well-padded. Anesthesia assumed control of the C-spine and airway and remained controlled throughout the remainder of the procedure. A tourniquet was placed on the left upper thigh and the leg was prepped in a sterile fashion. The surgeon then scrubbed at this time. Upon reentering the room LEFt lower extremity was draped in a standard orthopedic fashion. A timeout was then called and everyone agreed upon the side, the site, the procedure to be performed, patient's identity and antibiotics given. An Esmarch bandage was used to exsanguinate the extremity and the tourniquet was placed up to 250 mmHg with the knee in flexion. A midline skin incision was made using the previous incision and extending it proximally and distally to identify normal tissue planes. Medial and lateral flaps were developed appropriate releases. The standard medial parapatellar arthrotomy was made and the patella was subluxed laterally. At this time an aggressive synovectomy was performed re-creating the medial gutter first, then the suprapatellar pouch than the lateral gutter. Once this was completed the knee was flexed up an osteotome was used to remove the tibial polyethylene. The remainder of the synovium was debrided. The standard deep MCL release was done and the patella scar pad was resected and lateral releases were performed. Next our attention was directed to the femur. Wear flexible osteotomes were used to break up the implant cement interface. This was done both medially and laterally. After this is adequately loosened bone tamp was used to remove the femur component from the end of the bone. Based on our findings the femoral component was grossly loose this was done with minimal bone loss. At this time attention was now directed towards the proximal tibia. Osteotomes were then used to break up the proximal tibia implant interface and stacked osteotomes were used to remove the tibial implant. The tibia was grossly loose. This was done with minimal bone loss. At this time we were able to get to the back and knee the knee and complete our synovectomy. Once we completed our synovectomy in the posterior knee we then everted the patella was then removed using a TPS saw and quarter inch osteotome. At this time the knee was flexed up and the proximal tibia was exposed. The tibial cutting guide was fixed into place and a cleanup cut was made. We then used a bur to debride any areas of membrane over the bone. Attention was then directed towards the femur where the bur was again used to remove areas of membrane cleaning up the ends of the bone. At this time we reamed each canal to 15 mm for a cement dowel to be placed. We then used the trial components in order to establish a balanced articulating spacer. In order to balance it we did need to add 5 mm distal augments to the femur. This gave us a knee with good stability in flexion extension with a 16 mm all polyethylene tibia. Trial components were then removed. Final components were verified and opened, 6 liters of normal saline were irrigated throughout the joint under low-pressure lavage. Then the cement was mixed in a vacuum. Santiago Simplex cement with tobramycin was used. The wound was copiously irrigated with normal saline. On the back table to cement dowels were mixed using the cement mixture and antibiotic mixture. These were mixed by hand and rolled. There were then placed up the femoral canal after the 6 L of normal saline irrigant. The tibial dowel was placed on a Steinmann pin and threaded into the bottom of the all polyethylene tibia. Cement for the tibia and femur were then mixed. Hemostasis was obtained after letting down the tourniquet. When the cement was ready the components were cemented into place starting with the tibia, femur. The knee was placed in full extension. All excess cement was removed in the process. Once the cement had cured the tracking, alignment and balance were verified. Once the final components were placed wound was lavaged out with a 3-minute dilute Betadine lavage followed by 1 minute chlorhexidine lavage and finally the wound was copiously irrigated with normal saline solution and the remainder of the periarticular injection was given. The wound was closed in a layer ontiveros fashion using #1 vicryl interrupted sutures for the arthrotomy, 2-0 interrupted Vicryl for the subcuticular layer and 2-0 nylon for final skin closure. A sterile compressive dressing was then placed. The patient was then awakened from anesthesia, transferred to the [facility] and transferred to the PACU for recovery. Post op plan DVT ppx: Xarelto 10 mg daily for 2 weeks followed by 81 mg twice daily aspirin for 2 weeks, thigh high compression stockings Follow up: in office in 2 weeks for wound check PT: Patient will be made toe-touch weightbearing for the first 2 weeks followed by partial weightbearing 50% after that. He will be placed in a knee immobilizer for the first 2 weeks and then allowed to begin range of motion therapy at 2 weeks followed by strengthening at 6 weeks. After 6 weeks of IV antibiotics we will begin the process of reestablishing surgical intervention for replacement of the knee replacement beginning with an antibiotic holiday and observing serum lab work. My physician assistant produce manager was a vital part of this case. He was important in appropriate retraction during the case, and protection of soft tissues during bony cuts. His intimate knowledge of the case and my steps aided in safe and expedient completion of the procedure as well as appropriate position of the leg during the case. He was also vital in assisting with closure under my direct supervision. Complications No intraoperative complications Admit VTE Documentation VTE Present on Admission: No VTE Mechan Device Prophylaxis: SCD's and Thigh High RAISSA Hose VTE Pharm Prophylaxis ordered?: Yes
--- NOTE | 2022-05-10 16:30 | RAD_ITS ---
STUDY: X-RAY - LEFT KNEE REASON FOR EXAM: Female, 77 years old. post op -- AP and Lateral xray of operative knee in PACU TECHNIQUE: 3 view(s) of the knee. COMPARISON: 10/23/2021 FINDINGS: Surgical changes status post knee prosthesis placement with prosthesis in anatomic alignment and position. There is residual fluid and gas in the joint space j and suprapatellar bursa.. RAD/Knee 1 or 2 Views IMPRESSION: Status post knee prosthesis placement Electronically Signed: Karlo Padilla MD at 16:47 EST ,
[2022-05-10] MEDS: Gabapentin 300 MG Capsule PO (18:30)
[2022-05-10] MEDS: Pramipexole Di-HCl 0.5 MG Tablet PO (18:41)
--- NOTE | 2022-05-10 19:01 | PCM.RX.CS ---
Consult Pharmacy has been consulted to manage selected antiobiotic: Vancomycin Type of Consult: New start Prior Doses of Antibiotics Received/Current Regimen: Medications Vancomycin HCl 1,500 mg/ (Sodium Chloride) 530 mls @ 250 mls/hr IV X1 ONE Stop: 05/10/22 19:37 Last Admin: 05/10/22 18:30 Dose: 250 mls/hr Labs: Sodium 137 mmol/L (136-145) 04/27/22 11:14 Potassium 4.2 mmol/L (3.5-5.1) 04/27/22 11:14 Chloride 102 mmol/L (98-107) 04/27/22 11:14 Carbon Dioxide 31.0 mmol/L (21.0-32.0) 04/27/22 11:14 Anion Gap 4 (5-15) L 04/27/22 11:14 BUN 22 mg/dL (7-18) H 04/27/22 11:14 Creatinine 0.60 mg/dL (0.55-1.02) 04/27/22 11:14 Est GFR (MDRD) Af Amer 124 mL/min (>60) 04/27/22 11:14 Est GFR (MDRD) Non-Af 102 mL/min (>60) 04/27/22 11:14 BUN/Creatinine Ratio 36.5 RATIO (10-20) H 04/27/22 11:14 Glucose 93 mg/dL (74-106) 04/27/22 11:14 Microbiology: Microbiology 04/27/22 11:14 Swab (Method) Nasal Screen MRSA/MSSA - Final Weight used for dosin kg Estimated Creatinine Clearance: 62 Goal Trough: 10-15 mcg/mL Pharmacy Plan for Drug Dosinmg given, 750mg IV q12h with trough prior to 4th dose per policy. Pharmacy Service will continue to monitor and adjust dosing as required. Follow-Up Labs: Trough Vancomycin - 05/12 @ 1430
[2022-05-10] MEDS: Senna/Docusate Sodium 1 Tablet 2 TABLET PO (21:58)
[2022-05-10] MEDS: oxyCODONE 5 MG Tablet PO (21:58)
[2022-05-10] MEDS: Cefazolin 1 GM/50 ML BAG IV (22:55)
[2022-05-11] VITALS (13 sets, daily range): BP systolic 100–130; BP diastolic 61–83; PULSE 73–90; RESP 16–18; TEMP 36.6–37.6; O2SAT 72–97
[2022-05-11] MEDS: oxyCODONE 5 MG Tablet PO ×5 (02:22→21:21)
--- NOTE | 2022-05-11 02:31 | NURSING ---
This RN went in to pt room at 0220 to take vital signs. Pt was sleeping. SpO2 was reading 72%. This RN added 2L of oxygen to increase SpO2 to 80%. Then, 4L of O2 to make SpO2 92%. Asked pt if she has a history of sleep apnea and she said, not diagnosed. This RN placed continuous pulse ox on pt and left pt on 4L of O2 for the night. Will continue to monitor
[2022-05-11 04:39] LABS: Hematocrit 36.4 % (37-47); Hemoglobin 11.3 g/dL (12.0-15.0); Mean Corpuscular Hgb 27.4 pg (27.0-32.0); Mean Corpuscular Volume 88.3 fL (81-99); Mean Platelet Vol. 9.4 fl (6.2-12.0); Platelet Count 121 K/mm3 (150-450); RBC Distribution Width CV 14.7 % (11.6-14.6); RBC Distribution Width SD 47.8 fl (35.1-43.9); Red Blood Count 4.12 M/mm3 (4.2-5.4); White Blood Count 6.8 K/mm3 (4.4-11.0)
[2022-05-11 05:04] LABS: Anion Gap 6 (5-15); BUN 20 mg/dL (7-18); BUN/Creat Ratio 29.2 RATIO (10-20); Calcium,Total 8.3 mg/dL (8.5-10.1); Chloride 103 mmol/L (98-107); Creatinine, Serum 0.68 mg/dL (0.55-1.02); EST Glomerular Filtration Rate 89 mL/min (>60); Est Glom Filt Rate - Afr Amer 107 mL/min (>60); Estimated Creatinine Clearance 37.26 ml/min; Glucose 115 mg/dL (74-106); Potassium 3.5 mmol/L (3.5-5.1); Sodium Level 137 mmol/L (136-145)
[2022-05-11] MEDS: Cefazolin 1 GM/50 ML BAG IV (05:28)
[2022-05-11] MEDS: Morphine 2 MG/ML Syringe IV ×3 (05:30→23:17)
[2022-05-11] MEDS: 0.9% Saline Lock 10 ML Syringe IV ×2 (05:30→20:49)
[2022-05-11] MEDS: Rivaroxaban 10 MG Tablet PO (06:11)
[2022-05-11] MEDS: Acetaminophen 500 MG Tablet 1000 MG PO ×3 (06:12→21:22)
--- NOTE | 2022-05-11 07:13 | PN.ORTHO_ITS ---
Subjective Subjective The patient was sitting in bed upon examination. Patient denies any chest pain, shortness of breath, dizziness, lightheadedness, nausea or vomiting, or calf pain. Pain is controlled on medications. No adverse overnight events. Patient does complain of pain with the left knee but medications are helpful. She has also been on nasal oxygen due to drop in O2 saturation. She denies chest pain or shortness of breath. She denies history of sleep apnea but does state 1 year ago she was treated with her primary care physician using incentive spirometer. She cannot tell me the reason for this. In the primary care clearance it is documented that she had history of wheezing and bronchitis. Patient underwent a previous left total knee arthroplasty by Dr. Louie Stark on October 23, 2021. Previous x-rays revealed progressive loosening of the component. She had elevated ESR as well as synovial white blood cell count and synovial PMNs. Patient does live home at alone and does not have help. Objective Data Objective Data Vital Signs: Vital Signs Temp Pulse Resp BP Pulse Ox O2 Del Method O2 Flow Rate 98 F 87 18 122/73 H 97 Nasal Cannula 4 05/11/22 06:08 05/11/22 06:08 05/11/22 06:08 05/11/22 06:08 05/11/22 06:08 05/11/22 06:08 05/11/22 06:08 Oxygen Flow Rate (L/min) 4 Oxygen Delivery Method Nasal Cannula Weight: 97 kg Body Mass Index (BMI) 39.1 Intake & Output: Intake and Output for Last 24 Hours 05/09/22 05/10/22 05/11/22 23:59 23:59 23:59 Intake Total 3012 / 3862 1400 / 1400 Balance 3012 / 3862 1400 / 1400 Lab / Micro Data Result Diagrams: 05/11/22 04:09 05/11/22 04:09 Labs: Laboratory Results - last 24 hr 05/10/22 11:24: POC Glucose 124 H 05/11/22 04:09: WBC 6.8, RBC 4.12 L, Hgb 11.3 L, Hct 36.4 L, MCV 88.3, MCH 27.4, MCHC 31.0 L, RDW Std Deviation 47.8 H, RDW Coeff of Rufino 14.7 H, Plt Count 121 L, MPV 9.4 05/11/22 04:09: Sodium 137, Potassium 3.5, Chloride 103, Carbon Dioxide 28.0, Anion Gap 6, BUN 20 H, Creatinine 0.68, Estim Creat Clear Calc 37.26, Est GFR (MDRD) Af Amer 107, Est GFR (MDRD) Non-Af 89, BUN/Creatinine Ratio 29.2 H, Glucose 115 H, Calcium 8.3 L Micro: Microbiology 04/27/22 11:14 Swab (Method) Nasal Screen MRSA/MSSA - Final Radiography Diagnostic Testing: Radiology Impression Knee X-Ray 05/10/22 16:30 IMPRESSION: Status post knee prosthesis placement Electronically Signed: Karlo Padilla MD at 16:47 EST , Physical Exam Narrative Vital signs stable and afebrile. Patient is currently on nasal oxygen due to hypoxia SCDs and RAISSA hose are in place bilaterally Knee immobilizer in place for the left knee. This was opened and the Harvey wrap was removed. Patient is able to plantarflex and dorsiflex actively. Sensation is intact to light touch to saphenous, sural, superficial and deep peroneal, and tibial distribution. Dressing is clean dry and intact. Negative Homans bilaterally, negative signs and symptoms of DVT. Const alert, oriented x3 and no apparent distress Assessment & Plan Assessment/Plan (1) Infected prosthetic knee joint: PLAN: 1. S/P left knee total knee explantation with placement of antibiotic spacer and nonbiodegradable antibiotic delivery system POD #1 2. Continue Pain Medications: Tylenol and oxycodone 3. DVT Prophylaxis: Xarelto for 2 weeks postoperatively followed by aspirin 81 mg twice daily for an additional 2 weeks 4. PT/OT: Toe-touch weightbearing left lower extremity with walker. Continue with knee immobilizer 5. H & H: 11.3/36.4, asymptomatic. Postoperative anemia secondary to acute blood loss from surgery without any intra operative complications. 6. Postoperative hypoxia: Continue with nasal oxygen and attempt to wean off. Recommended incentive spirometer bedside. Patient denies previous history of sleep apnea or COPD. 7. Continue postoperative medical management per medicine: Appreciate recommendations for the postoperative hypoxia 8. Infectious disease consultation: Appreciate recommendations for antibiotics. Currently on vancomycin. Cultures are pending. Patient will require PICC line and IV antibiotics for 6 weeks postoperatively. 9. Encouraged Incentive Spirometry 10. Disposition: We will appreciate recommendations from infectious disease for antibiotic treatment. Patient does live home alone and has no assistance. Will most likely require correction facility postoperatively for IV antibiotics and postoperative recovery. Case management is currently on board for appropriate discharge planning. Patient will continue with the knee immobilizer and toe-touch weightbearing on the left lower extremity. Continue with above pain medications and DVT prophylaxis. This dictation was created using voice recognition software. Phonetic and/or grammatical errors may exist.
[2022-05-11] MEDS: Calcium Carb/Vitamin D 1 TABLET Tablet PO (09:20)
[2022-05-11] MEDS: Senna/Docusate Sodium 1 Tablet 2 TABLET PO ×2 (09:21→21:22)
[2022-05-11] MEDS: Multivitamins,Ther W-Minerals Tablet 1 TABLET PO (09:21)
[2022-05-11] MEDS: Cholecalciferol (VIT D3) 25 MCG TABLET (1,000 UNITS) PO (09:22)
[2022-05-11] MEDS: Metoprolol(XL)Succ 100 MG Tablet PO (09:22)
[2022-05-11] MEDS: amLODIPine 2.5 MG Tablet PO (09:23)
[2022-05-11] MEDS: hydroCHLOROthiazide 25 MG Tablet PO (09:23)
[2022-05-11] MEDS: Magnesium Chloride 64 MG Delay Rel.Tablet PO (09:23)
[2022-05-11] MEDS: Cyanocobalamin 500 MCG Tablet 1000 MCG PO (09:23)
[2022-05-11] MEDS: Sertraline 100 MG Tablet PO (09:23)
[2022-05-11] MEDS: Famotidine 20 MG Tablet PO (09:24)
[2022-05-11] MEDS: Pantoprazole Sodium 40 MG Tablet PO (09:24)
[2022-05-11] MEDS: Gabapentin 300 MG Capsule PO ×3 (09:26→17:07)
[2022-05-11] MEDS: Ensure Surgery 237 ML LIQUID PO ×3 (09:26→17:07)
--- NOTE | 2022-05-11 10:48 | PN_ITS ---
Subjective Subjective Postoperative day #1 status post removal of L prosthetic knee joint and replacement with antibiotic spacer. She had a total left knee replacement in October 2021. Past medical history was reviewed. Afebrile since admission. VSS Maintaining appropriate oxygen saturation on a 2 L nasal cannula today. Discussed with nursing - no problems that need addressed Reviewed the PT/OT notes-she is weightbearing as tolerated. Medication list reviewed. Currently on Tylenol 1 g p.o. every 8 hours, gabapentin 300 mg 3 times daily and oxycodone 5 to 10 mg every 4 hours as needed for pain control. She is on Xarelto 10 mg daily for DVT prophylaxis. Currently on IV vancomycin All lab from today was personally reviewed. Hemoglobin is 11.3, down from 13.2 on 04/27/2022. White blood cell count is normal and no differential was done. Platelet count is low at 121,000. Potassium is borderline low at 3.5. The BUN is 20 with a creatinine of 0.68. BUN/creatinine ratio is 29.2. Farzana denies chest pain, shortness of breath, palpitation, nausea, vomiting, abdominal pain, dysuria, calf pain. Tells me her bowel movements have been regular recently. Pain control is adequate at this time. Pain increases when she is up and bearing weight. It is currently a 2 when she is sitting in the recliner. She does complain of some lightheadedness and has been drinking coffee and Diet Coke. She is also on a diuretic for HTN. Objective Data Objective Data Vital Signs: Vital Signs Temp Pulse Resp BP Pulse Ox O2 Del Method O2 Flow Rate 98.1 F 90 16 123/83 H 91 Nasal Cannula 2 05/11/22 09:00 05/11/22 09:22 05/11/22 09:00 05/11/22 09:00 05/11/22 10:14 05/11/22 09:43 05/11/22 10:14 Oxygen Flow Rate (L/min) 2 Oxygen Delivery Method Nasal Cannula Weight: 213 lb 13.574 oz Body Mass Index (BMI) 39.1 Intake & Output: Intake and Output for Last 24 Hours 05/09/22 05/10/22 05/11/22 23:59 23:59 23:59 Intake Total 3012 / 3862 2665 / 2665 Balance 3012 / 3862 2665 / 2665 Lab / Micro Data Result Diagrams: 05/11/22 04:09 05/11/22 04:09 Labs: Laboratory Results - last 24 hr 05/10/22 11:24: POC Glucose 124 H 05/11/22 04:09: WBC 6.8, RBC 4.12 L, Hgb 11.3 L, Hct 36.4 L, MCV 88.3, MCH 27.4, MCHC 31.0 L, RDW Std Deviation 47.8 H, RDW Coeff of Rufino 14.7 H, Plt Count 121 L, MPV 9.4 05/11/22 04:09: Sodium 137, Potassium 3.5, Chloride 103, Carbon Dioxide 28.0, Anion Gap 6, BUN 20 H, Creatinine 0.68, Estim Creat Clear Calc 37.26, Est GFR (MDRD) Af Amer 107, Est GFR (MDRD) Non-Af 89, BUN/Creatinine Ratio 29.2 H, Glucose 115 H, Calcium 8.3 L Micro: Microbiology 05/10/22 14:24 Tissue - Knee Wound Culture - Preliminary No growth-Final to follow 05/10/22 14:19 Tissue - Knee Wound Culture - Preliminary No growth-Final to follow 05/10/22 14:12 Tissue - Knee Wound Culture - Preliminary No growth-Final to follow 04/27/22 11:14 Swab (Method) Nasal Screen MRSA/MSSA - Final Radiography Diagnostic Testing: Radiology Impression Knee X-Ray 05/10/22 16:30 IMPRESSION: Status post knee prosthesis placement Electronically Signed: Karlo Padilla MD at 16:47 EST Reading Location ID and State: [address] [place] [address] , Service support , Physical Exam Const alert, oriented x3 and no apparent distress Constitutional Narrative: sitting in the recliner by the window and appears in no distress. General Appearance: cooperative and well developed HEENT normocephalic Mouth: dry mucous membranes Resp normal respiratory effort, normal air movement and clear to auscultation bilaterally Resp Narrative: No conversational dyspnea Effort and Inspection: Negative for tachypneic, respiratory distress, labored or uses accessory muscles Cardio regular rhythm, S1 normal heart sound, S2 normal heart sound, no murmurs, no rub and no gallops Cardio Narrative: Resting heart rate currently is in the 90s. GI normal to inspection, nondistended, normoactive bowel sounds, soft to palpation and non-tender Extremity no calf tenderness Skin Rashes: no rashes Neuro CN's II-XII intact bilaterally and no focal motor deficits Psych thought process normal, cooperative and affect normal Assessment & Plan Assessment/Plan (1) Debility: PLAN: continue PT/OT. (2) Infected prosthetic knee joint: PLAN: Has been seen by Dr. Harry but, no note yet. Plan is for her to go to TCU for IV antibiotics post DC. Cutures are pending form OR. will need a PICC line prior to going to TCU (3) History of removal of joint prosthesis of knee due to infection: PLAN: 05/10/[address] Loredo. (4) Blood loss anemia: PLAN: mild. (5) Dehydration: PLAN: I am going to DC the HCTZ and if the BP increases will adjust antihyperte nsives. CREAT CL is in the 30's and she is on Vancomycin. Dehydration will increase the risk for kidney damage and she told me she does not like to drink water and mostly she drinks coffee and diet coke. PLAN: Plan 1. give a dose of potassium today and try and maintain the K at around 4. Echocardiogram in 2020 showed mild left atrial enlargement which puts her at increased risk for atrial fibrillation. No magnesium was checked today. 2. encouraged her to drink water. Charges/Coding Visit Charges Inpatient E&M: 20605 Subs Hosp L2
--- NOTE | 2022-05-11 11:10 | CASEMGMT ---
TRACY HANEY Face to Face with patient for initial transition planning/care coordination assessment. RN MEDINA introduced self and role at [facility]. Patient sitting in chair, alert and oriented, daughter at bedside. Patient willing to participate in assessment and is able to answer all questions appropriately. Care providers, pharmacy, and demographics verified. Patient wishes to discharge to TCU for additional therapy and IV antibiotic management. TRACY CM to updated SW regarding request for TCU at discharge. Patient states she has no further needs or concerns at this time. CM to follow for discharge planning needs that may arise. PCP: Drew Specialists: dari Loredo Preferred Pharmacy: [facility]; [facility] retail at discharge. Insurance: [employer] Prescription Benefit: yes Living Will/HPOA: yes, daughter Churchill LNOK: daughters Living Arrangements: Patient lives alone in a first floor apartment with 1 step and grab bar to enter the home. Patient states she was independent at home. Transportation: self, friends, family DME/HHC: Patient states she has built in shower chair, raised toilet, grab bars, and walker at home. Patient has been to TCU in the past and has had [facility]. Disposition Plan: Patient to discharge to SNF pending acceptance and precert. Ny INTERIANO, RN, CM
[2022-05-11 11:52] LABS: Magnesium 2.2 mg/dL (1.6-2.6)
[2022-05-11] MEDS: Potassium Chloride Oral Tablet 20 MEQ PO ×2 (12:18→17:07)
--- NOTE | 2022-05-11 12:33 | CASEMGMT ---
Social Work Consult: prison placement Referral source: TRACY HANEY This long term care social worker met with patient in room. Introduced self and long term care social worker role. Patient agreeable to speak with this long term care social worker. This long term care social worker broached conversation aobut jail placement for patient. Patient reports to be interested in jail placement. This long term care social worker provided patient with list of in-network nursing facilities that are local to patient geographical region. Patient reports that first choice is [facility] and second choice is [facility]. [facility] Yudith reports to have no beds right now but able to put patient on waiting list if a bed opens up as patient is not medically cleared currently. Telephone call to Sandra Rene. Sandra to see if [facility] accepts patient insurance. Face sheet sent. Will continue to follow. Ann SIDDIQI, GUIDO
--- NOTE | 2022-05-11 12:47 | PCM.CONS.GEN ---
Assessment & Plan Assessment/Plan (1) Infected prosthetic knee joint: PLAN: L knee PJI - taken to OR 05/10/[address] Loredo for spacer placement. Surg cx pending. Requested samples held for 14 days. Will order picc and 6 weeks iv vanc/ceftriaxone, stop date 06/21/22 with weekly labs, ID followup in 2 weeks if she does not go to TCU. Will follow, thank you, d/w shoe parts caser HPI Consult Data Date of Consult: 05/11/22 HPI Narrative Reason for Consultation: PJI HPI Narrative: TOREY SUAREZ, is a 77 F with L TKA 10/2021. Had progressive pain since then, rated 7/10. No fever, chills, or night sweats. No redness or drainage. No recent abx. Taken to OR 05/10/[address] Loredo for spacer placement. Some pain this AM, no n/v/d. Full ROS performed and neg except as noted above. [facility] Medical History Arthritis Bladder disease Bruising Closed fracture of right patella Former smoker Gastric reflux History of echocardiogram History of hiatal hernia Hypertension Leg cramps Restless legs Vitamin D deficiency Walker as ambulation aid Wears dentures Wears glasses Home Medications amlodipine 2.5 mg tablet 2.5 mg PO DAILY Heart 08/04/19 [History Last Taken 01/30/22 08:45] calcium carbonate-vitamin D3 600 mg-125 unit tablet 1 tab PO 0800 Supplement 08/04/19 [History Last Taken 01/30/22 08:45] cyanocobalamin (vitamin B-12) 500 mcg tablet 1,000 mcg PO DAILY@0800 supplement 08/04/19 [History Last Taken 01/30/22 08:45] hydrochlorothiazide 25 mg tablet 25 mg PO DAILY Heart 08/04/19 [History Last Taken 01/30/22 08:45] melatonin 5 mg tablet 10 mg PO QHS PRN Sleep 08/04/19 [History Last Taken 01/29/22 23:40] multivitamin with minerals 1 tab PO DAILY supplement 08/04/19 [History Last Taken 01/30/22 08:45] omeprazole 40 mg capsule,delayed release 40 mg PO DAILY GERD 08/04/19 [History Last Taken 01/30/22 08:45] sertraline 100 mg tablet 100 mg PO DAILY depression 08/04/19 [History Last Taken 01/30/22 08:45] acetaminophen 500 mg tablet 1,000 mg PO Q8H PRN Pain 06/06/21 [History Last Taken 01/29/22 23:35] gabapentin 300 mg capsule 300 mg PO TIDCM pain 10/26/21 [History Last Taken 01/30/22 08:50] magnesium chloride 64 mg (magnesium chloride) tablet,delayed release (Mag 64) 64 mg PO DAILY supplement 10/26/21 [History Last Taken 01/30/22 08:45] cholecalciferol (vitamin D3) 25 mcg (1,000 unit) tablet 25 mcg PO DAILY SUPPLEMENT 01/26/22 [History Last Taken 01/30/22 08:45] metoprolol succinate 50 mg tablet,extended release 24 hr 100 mg PO DAILY HEART 01/26/22 [History Last Taken 01/30/22 08:50] pramipexole 0.5 mg tablet 1 mg PO QHS RLS 01/26/22 [History Last Taken 01/29/22 21:05] tramadol 50 mg tablet 50 mg PO Q6H PRN PRN Pain Score 1-5 3 days #12 tabs 01/30/22 [Rx Last Taken Unknown] meloxicam 7.5 mg tablet 7.5 mg PO BID PAIN 04/27/22 [History Last Taken Unknown] aspirin 81 mg tablet,delayed release 81 mg PO BID Check with primary doctor 05/10/22 [History Last Taken Unknown] ceftriaxone 2 gram intravenous solution 2 g IV DAILY 40 days #40 ea 05/11/22 [Rx Last Taken Unknown] vancomycin 750 mg intravenous solution 750 mg IV Q12H 40 days #80 ea 05/11/22 [Rx Last Taken Unknown] Allergy/AdvReac Type Severity Reaction Status Date / Time No Known Allergies Allergy Verified 05/10/22 11:27 Family History Father Hypertension Brother Cancer Anemia Surgical History (Updated 04/27/22 @ 14:22 by Eugenie Crespo) History of back surgery History of eye surgery History of hysterectomy History of laparoscopic cholecystectomy History of repair of rectocele History of total left knee replacement History of total right knee replacement History of tubal ligation Status post total left knee replacement not using cement Social History household members: none Smoking Status: Former smoker alcohol intake: never substance use type: does not use Physical Exam Const alert, oriented x3 and no apparent distress General Appearance: cooperative HEENT normocephalic and head/scalp atraumatic Eyes PERRL and EOMs intact bilaterally Neck supple and No nodes Resp normal air movement and clear to auscultation bilaterally Cardio regular rate and regular rhythm GI soft to palpation, non-tender and non-distended Extremity General Extremity: edema Skin Skin Narrative: LLE wrapped Neuro CN's II-XII intact bilaterally Medical Records Data Attestation: I reviewed the patient's medical records Lab / Micro Data Result Diagrams: 05/11/22 04:09 05/11/22 04:09 Labs: Laboratory Results - last 24 hr 05/11/22 04:09: WBC 6.8, RBC 4.12 L, Hgb 11.3 L, Hct 36.4 L, MCV 88.3, MCH 27.4, MCHC 31.0 L, RDW Std Deviation 47.8 H, RDW Coeff of Rufino 14.7 H, Plt Count 121 L, MPV 9.4 05/11/22 04:09: Sodium 137, Potassium 3.5, Chloride 103, Carbon Dioxide 28.0, Anion Gap 6, BUN 20 H, Creatinine 0.68, Estim Creat Clear Calc 37.26, Est GFR (MDRD) Af Amer 107, Est GFR (MDRD) Non-Af 89, BUN/Creatinine Ratio 29.2 H, Glucose 115 H, Calcium 8.3 L 05/11/22 04:09: Magnesium 2.2 Micro: Microbiology 05/10/22 14:24 Tissue - Knee Gram Stain - Final 05/10/22 14:24 Tissue - Knee Wound Culture - Preliminary No growth-Final to follow 05/10/22 14:19 Tissue - Knee Gram Stain - Final 05/10/22 14:19 Tissue - Knee Wound Culture - Preliminary No growth-Final to follow 05/10/22 14:12 Tissue - Knee Gram Stain - Final 05/10/22 14:12 Tissue - Knee Wound Culture - Preliminary No growth-Final to follow Radiology Impression Knee X-Ray 05/10/22 16:30 IMPRESSION: Status post knee prosthesis placement Electronically Signed: Karlo Padilla MD at 16:47 EST ,
--- NOTE | 2022-05-11 14:11 | NURSING ---
Called crusher foreman for PICC line placement
--- NOTE | 2022-05-11 15:00 | CASEMGMT ---
Social Work Telephone call from [facility]. [place] reports that patient would be 90% covered for out of network. Ann Owusu MSW, AREN-S
--- NOTE | 2022-05-11 16:28 | CASEMGMT ---
Social Work Spoke with patient in room to update on response from [facility]. Patient is now unsure about [facility] about being on a fixed income. This case management social worker inquired if patient has looked over list and has a second option that is in-network with patient insurance. Patient states to have not gotten a chance to look over list as hoping I could go to TCU. This case management social worker confirming that TCU continues to not have a bed open. Patient plans to look over list and is agreeable to social work following up with patient on options. Social Work to continue to follow. Ann SIDDIQI, GUIDO
--- NOTE | 2022-05-11 16:33 | CASEMGMT ---
Social Work Notification received from Kylee ARECHIGA. There is a chance that there will be a bed that will open up for patient. Kylee reports to have started pre-cert and to not anticipate hearing back from insurance until next week. This social welfare administrator updated patient. PLAN: Possible TCU. Ann SIDDIQI, GUIDO
[2022-05-11] MEDS: Pramipexole Di-HCl 0.5 MG Tablet PO (21:22)
[2022-05-12] VITALS (8 sets, daily range): BP systolic 102–117; BP diastolic 66–87; PULSE 65–107; RESP 16–18; TEMP 36.6–37.2; O2SAT 93–99
[2022-05-12] MEDS: oxyCODONE 5 MG Tablet PO ×3 (02:32→20:07)
[2022-05-12] MEDS: Rivaroxaban 10 MG Tablet PO (05:44)
[2022-05-12] MEDS: Acetaminophen 500 MG Tablet 1000 MG PO ×3 (05:44→21:47)
[2022-05-12 06:23] LABS: Hematocrit 34.7 % (37-47); Hemoglobin 10.9 g/dL (12.0-15.0); Mean Corp Hgb Conc 31.4 g/dL (32-36); Mean Corpuscular Hgb 27.7 pg (27.0-32.0); Mean Corpuscular Volume 88.1 fL (81-99); Mean Platelet Vol. 10.1 fl (6.2-12.0); Platelet Count 124 K/mm3 (150-450); RBC Distribution Width CV 14.6 % (11.6-14.6); RBC Distribution Width SD 46.8 fl (35.1-43.9); Red Blood Count 3.94 M/mm3 (4.2-5.4); White Blood Count 8.2 K/mm3 (4.4-11.0)
[2022-05-12 06:50] LABS: Vancomycin, Trough Level 12.8 ug/mL (5.0-15.0)
[2022-05-12 06:51] LABS: Anion Gap 2 (5-15); BUN 26 mg/dL (7-18); BUN/Creat Ratio 31.3 RATIO (10-20); Calcium,Total 9.5 mg/dL (8.5-10.1); Chloride 101 mmol/L (98-107); Creatinine, Serum 0.83 mg/dL (0.55-1.02); EST Glomerular Filtration Rate 71 mL/min (>60); Est Glom Filt Rate - Afr Amer 86 mL/min (>60); Estimated Creatinine Clearance 44.89 ml/min; Glucose 153 mg/dL (74-106); Potassium 4.4 mmol/L (3.5-5.1); Sodium Level 132 mmol/L (136-145)
--- NOTE | 2022-05-12 07:02 | PCM.RX.CS ---
Consult Pharmacy has been consulted to manage selected antiobiotic: Vancomycin Type of Consult: Follow-up Labs: Sodium 132 mmol/L (136-145) L 05/12/22 05:38 Potassium 4.4 mmol/L (3.5-5.1) 05/12/22 05:38 Chloride 101 mmol/L (98-107) 05/12/22 05:38 Carbon Dioxide 29.0 mmol/L (21.0-32.0) 05/12/22 05:38 Anion Gap 2 (5-15) L 05/12/22 05:38 BUN 26 mg/dL (7-18) H 05/12/22 05:38 Creatinine 0.83 mg/dL (0.55-1.02) 05/12/22 05:38 Est GFR (MDRD) Af Amer 86 mL/min (>60) 05/12/22 05:38 Est GFR (MDRD) Non-Af 71 mL/min (>60) 05/12/22 05:38 BUN/Creatinine Ratio 31.3 RATIO (10-20) H 05/12/22 05:38 Glucose 153 mg/dL (74-106) H 05/12/22 05:38 Vancomycin Trough 12.8 ug/mL (5.0-15.0) 05/12/22 05:38 Microbiology: Microbiology 05/10/22 14:24 Tissue - Knee Gram Stain - Final 05/10/22 14:24 Tissue - Knee Wound Culture - Preliminary No growth-Final to follow 05/10/22 14:19 Tissue - Knee Gram Stain - Final 05/10/22 14:19 Tissue - Knee Wound Culture - Preliminary No growth-Final to follow 05/10/22 14:12 Tissue - Knee Gram Stain - Final 05/10/22 14:12 Tissue - Knee Wound Culture - Preliminary No growth-Final to follow 04/27/22 11:14 Swab (Method) Nasal Screen MRSA/MSSA - Final Goal Trough: 10-15 mcg/mL Pharmacy Plan for Drug Dosing: Pharmacy Service will continue to monitor and adjust dosing as required. TROUGH 12.8 @ 11 HRS. NO CHANGES FOLLOW UP TROUGH IN 2 DAYS Follow-Up Labs: Trough Vancomycin Labs to be done on [date and time ordered]: 05/14 @ 8357
[2022-05-12] MEDS: Ensure Surgery 237 ML LIQUID PO ×2 (08:56→12:53)
[2022-05-12] MEDS: Potassium Chloride Oral Tablet 20 MEQ PO ×2 (08:56→15:59)
[2022-05-12] MEDS: Multivitamins,Ther W-Minerals Tablet 1 TABLET PO (08:57)
[2022-05-12] MEDS: Calcium Carb/Vitamin D 1 TABLET Tablet PO (08:57)
[2022-05-12] MEDS: Cyanocobalamin 500 MCG Tablet 1000 MCG PO (08:58)
[2022-05-12] MEDS: Magnesium Chloride 64 MG Delay Rel.Tablet PO (08:58)
[2022-05-12] MEDS: Pantoprazole Sodium 40 MG Tablet PO (08:59)
[2022-05-12] MEDS: Senna/Docusate Sodium 1 Tablet 2 TABLET PO (08:59)
[2022-05-12] MEDS: amLODIPine 2.5 MG Tablet PO (08:59)
[2022-05-12] MEDS: Famotidine 20 MG Tablet PO (08:59)
[2022-05-12] MEDS: Cholecalciferol (VIT D3) 25 MCG TABLET (1,000 UNITS) PO (09:00)
[2022-05-12] MEDS: Metoprolol(XL)Succ 100 MG Tablet PO (09:00)
[2022-05-12] MEDS: Sertraline 100 MG Tablet PO (09:01)
[2022-05-12] MEDS: Gabapentin 300 MG Capsule PO ×3 (09:09→15:59)
--- NOTE | 2022-05-12 11:47 | PN.ORTHO_ITS ---
Subjective Subjective The patient was sitting in bedside chair upon examination. Patient denies any chest pain, shortness of breath, dizziness, lightheadedness, nausea or vomiting, or calf pain. Pain is controlled on medications. No adverse overnight events. Patient states if she is up and moving she has increased pain. If she tries to lift her leg increased pain. She denies any shortness of breath, dizziness or lightheadedness. We are currently waiting on pre-CERT for patient to go to the transitional care unit at [facility]. Dr. Robledo has established IV antibiotics and PICC line has been placed. At this time we are waiting on pre-CERT for patient to be discharged. Objective Data Objective Data Vital Signs: Vital Signs Temp Pulse Resp BP Pulse Ox O2 Del Method O2 Flow Rate 97.9 F 65 16 117/66 95 Nasal Cannula 2 05/12/22 08:33 05/12/22 09:00 05/12/22 08:33 05/12/22 08:33 05/12/22 08:33 05/12/22 08:40 05/12/22 08:40 Oxygen Flow Rate (L/min) 2 Oxygen Delivery Method Nasal Cannula Weight: 97 kg Body Mass Index (BMI) 39.1 Intake & Output: Intake and Output for Last 24 Hours 05/10/22 05/11/22 05/12/22 23:59 23:59 23:59 Intake Total 3012 / 3862 3020.75 / 3020.75 414.25 / 414.25 Balance 3012 / 3862 3020.75 / 3020.75 414.25 / 414.25 Lab / Micro Data Result Diagrams: 05/12/22 05:38 05/12/22 05:38 Labs: Laboratory Results - last 24 hr 05/11/22 04:09: Magnesium 2.2 05/12/22 05:38: WBC 8.2, RBC 3.94 L, Hgb 10.9 L, Hct 34.7 L, MCV 88.1, MCH 27.7, MCHC 31.4 L, RDW Std Deviation 46.8 H, RDW Coeff of Rufino 14.6, Plt Count 124 L, MPV 10.1 05/12/22 05:38: Sodium 132 L, Potassium 4.4, Chloride 101, Carbon Dioxide 29.0, Anion Gap 2 L, BUN 26 H, Creatinine 0.83, Estim Creat Clear Calc 44.89, Est GFR (MDRD) Af Amer 86, Est GFR (MDRD) Non-Af 71, BUN/Creatinine Ratio 31.3 H, Gluc ose 153 H, Calcium 9.5 05/12/22 05:38: Vancomycin Trough 12.8 Micro: Microbiology 05/10/22 14:19 Tissue - Knee Gram Stain - Final 05/10/22 14:19 Tissue - Knee Wound Culture - Preliminary No growth-Final to follow 05/10/22 14:24 Tissue - Knee Gram Stain - Final 05/10/22 14:24 Tissue - Knee Wound Culture - Preliminary No growth-Final to follow 05/10/22 14:12 Tissue - Knee Gram Stain - Final 05/10/22 14:12 Tissue - Knee Wound Culture - Preliminary No growth-Final to follow 04/27/22 11:14 Swab (Method) Nasal Screen MRSA/MSSA - Final Physical Exam Narrative Vital signs stable and afebrile. SCDs and RAISSA hose are in place bilaterally Patient is able to plantarflex and dorsiflex actively. Sensation is intact to light touch to saphenous, sural, superficial and deep peroneal, and tibial distribution. Dressing has drainage contacting 2 borders of the distal one third. This is new compared to yesterday. We will continue to monitor this. Negative Homans bilaterally, negative signs and symptoms of DVT. Const alert, oriented x3 and no apparent distress Assessment & Plan Assessment/Plan (1) Infected prosthetic knee joint: PLAN: 1. S/P left knee total knee explantation with placement of antibiotic spacer and nonbiodegradable antibiotic delivery system POD #2 2. Continue Pain Medications: Tylenol and oxycodone 3. DVT Prophylaxis: Xarelto for 2 weeks postoperatively followed by aspirin 81 mg twice daily for an additional 2 weeks 4. PT/OT: Toe-touch weightbearing left lower extremity with walker. Continue with knee immobilizer 5. H & H: 10.9/34.7, asymptomatic. Postoperative anemia secondary to acute blood loss from surgery without any intra operative complications. 6. Postoperative hypoxia: Patient is currently on room air during exam. She denies any chest pain or shortness of breath. Continue to recommend incentive spirometer 7. Continue postoperative medical management per medicine 8. Infectious disease consultation: Infectious disease has established antibiotics and currently on vancomycin and ceftriaxone. Stop date will be June 21, 2022 with weekly labs. Follow-up with infectious disease in 2 weeks if patient does not go to the transitional care unit. Current cultures are with no organisms seen. No growth on cultures. 9. Encouraged Incentive Spirometry 10. Disposition: Plan for patient is for discharge to transitional care unit at [facility] once pre-CERT has been obtained. Orthopedically she appears to be stable. She does have some limitations and difficulty with toe- touch weightbearing. Increased pain while up and working with therapy. We will continue to monitor the dressing as there has been some increased drainage. May need to change dressing tomorrow versus possible incisional wound VAC. Patient will continue with above pain medications. Continue with the Xarelto for DVT prophylaxis. Again we are waiting on insurance for pre-CERT for patient to be discharged. Hopeful for Saturday, May 14, 2022. I have reviewed the [place] Automated Rx Reporting System (OARRS) report for this patient for refill pattern and other prescriber involvement as part of the appropriate surveillance for the provision of acute and chronic controlled medications. The report was requested and reviewed on the date of this entry and was considered in the prescribing process. This dictation was created using voice recognition software. Phonetic and/or grammatical errors may exist.
--- NOTE | 2022-05-12 13:44 | PCM.PN.HOSP ---
Subjective Subjective Follow-up for perioperative management of left PUJ status post hardware removal and antibiotic spacer Patient got severe pain on the left knee after she went for bowel movement to bathroom. Advised to strict nonweightbearing. Objective Data Objective Data Vital Signs: Vital Signs Temp Pulse Resp BP Pulse Ox O2 Del Method O2 Flow Rate 97.9 F 65 16 117/66 95 Nasal Cannula 2 05/12/22 08:33 05/12/22 09:00 05/12/22 08:33 05/12/22 08:33 05/12/22 08:33 05/12/22 08:40 05/12/22 08:40 Oxygen Flow Rate (L/min) 2 Oxygen Delivery Method Nasal Cannula Weight: 213 lb 13.574 oz Body Mass Index (BMI) 39.1 Intake & Output: Intake and Output for Last 24 Hours 05/10/22 05/11/22 05/12/22 23:59 23:59 23:59 Intake Total 3012 / 3862 3020.75 / 3020.75 464.25 / 464.25 Balance 3012 / 3862 3020.75 / 3020.75 464.25 / 464.25 Lab / Micro Data Result Diagrams: 05/12/22 05:38 05/12/22 05:38 Labs: Laboratory Results - last 24 hr 05/12/22 05:38: WBC 8.2, RBC 3.94 L, Hgb 10.9 L, Hct 34.7 L, MCV 88.1, MCH 27.7, MCHC 31.4 L, RDW Std Deviation 46.8 H, RDW Coeff of Rufino 14.6, Plt Count 124 L, MPV 10.1 05/12/22 05:38: Sodium 132 L, Potassium 4.4, Chloride 101, Carbon Dioxide 29.0, Anion Gap 2 L, BUN 26 H, Creatinine 0.83, Estim Creat Clear Calc 44.89, Est GFR (MDRD) Af Amer 86, Est GFR (MDRD) Non-Af 71, BUN/Creatinine Ratio 31.3 H, Glucose 153 H, Calcium 9.5 05/12/22 05:38: Vancomycin Trough 12.8 Micro: Microbiology 05/10/22 14:19 Tissue - Knee Gram Stain - Final 05/10/22 14:19 Tissue - Knee Wound Culture - Preliminary No growth-Final to follow 05/10/22 14:24 Tissue - Knee Gram Stain - Final 05/10/22 14:24 Tissue - Knee Wound Culture - Preliminary No growth-Final to follow 05/10/22 14:12 Tissue - Knee Gram Stain - Final 05/10/22 14:12 Tissue - Knee Wound Culture - Preliminary No growth-Final to follow 04/27/22 11:14 Swab (Method) Nasal Screen MRSA/MSSA - Final Physical Exam Narrative Physical exam General: Alert, Oriented x3, Cooperative HEENT: Atraumatic, PERRLA, EOMI, Normocephalic Oral: No Gingival or Mucosal Lesions/ Ulcerations Neck: Supple, No JVD, Negative Carotid Bruits Lungs: Air entry diminished in bilateral lung bases. No crepitation/rhonchi Cardiovascular: Regular rate, Regular Rhythm, Normal S1, Normal S2, No murmurs Abdomen: Bowel Sounds Present, Soft, Non Tender, Non-Distended : No renal angle tenderness. No suprapubic tenderness. Extremities: No edema, Capillary Refill Less than 3 Seconds Skin: No rashes, No breakdown Musculoskeletal: Status post left total knee explantation with placement of antibiotic spacer Neurological: Cranial nerves II-XII grossly intact, DTR 2+/4 and Symmetrical Psych/Mental Status: Flat affect. Assessment & Plan Assessment/Plan (1) Debility: PLAN: continue PT/OT. (2) Infected prosthetic knee joint: PLAN: 05/12: Preliminary wound culture shows no growth, 1+ RBC, no organisms. The patient was evaluated by ID. Surgical culture is still pending. Will need PICC line and 6 weeks of IV bank ceftriaxone, stop date 06/21/2022 with weekly labs. Plan is for her to go to TCU for IV antibiotics post DC. 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 VTE prophylaxis, Xarelto for 2 weeks and additional 2 weeks of aspirin 81 mg twice daily as recommended by orthopedic surgeon. I prefer Xarelto for 4 weeks. (4) Blood loss anemia: PLAN: Mild acute blood loss anemia. Does not require transfusion. (5) Dehydration: PLAN: DC HCTZ and if the BP increases will adjust antihypertensives. CREAT CL is in the 30's and she is on Vancomycin PLAN: Plan Echocardiogram in 2020 showed mild left atrial enlargement. Serum potassium and magnesium level normal. Vanco trough level 12.8. 2. encouraged her to drink water. Charges/Coding Visit Charges Inpatient E&M: 32044 Subs Hosp L2
[2022-05-12] MEDS: Pramipexole Di-HCl 0.5 MG Tablet PO (15:59)
[2022-05-13] MEDS: oxyCODONE 5 MG Tablet PO ×5 (01:25→21:44)
[2022-05-13 02:00] VITALS: BP 104/71; PULSE 60; RESP 18; TEMP 36.8; O2SAT 94
[2022-05-13] MEDS: Rivaroxaban 10 MG Tablet PO (05:44)
[2022-05-13] MEDS: Acetaminophen 500 MG Tablet 1000 MG PO ×3 (05:44→21:44)
[2022-05-13] MEDS: 0.9% Saline Lock 10 ML Syringe IV (05:48)
[2022-05-13 06:58] LABS: Hematocrit 29.5 % (37-47); Hemoglobin 9.1 g/dL (12.0-15.0); Mean Corp Hgb Conc 30.8 g/dL (32-36); Mean Corpuscular Hgb 27.7 pg (27.0-32.0); Mean Corpuscular Volume 89.7 fL (81-99); Mean Platelet Vol. 10.5 fl (6.2-12.0); Platelet Count 110 K/mm3 (150-450); RBC Distribution Width CV 14.8 % (11.6-14.6); RBC Distribution Width SD 48.5 fl (35.1-43.9); Red Blood Count 3.29 M/mm3 (4.2-5.4); White Blood Count 5.5 K/mm3 (4.4-11.0)
[2022-05-13 07:14] VITALS: O2SAT 94
[2022-05-13 07:54] VITALS: BP 113/76; PULSE 89; RESP 16; TEMP 36.6; O2SAT 92
--- NOTE | 2022-05-13 07:56 | PCM.PN.HOSP ---
Subjective Subjective Feels well. No events overnight. Objective Data Objective Data Vital Signs: Vital Signs Temp Pulse Resp BP Pulse Ox O2 Del Method O2 Flow Rate 36.6 C 89 16 113/76 92 Nasal Cannula 2 05/13/22 07:54 05/13/22 07:54 05/13/22 07:54 05/13/22 07:54 05/13/22 07:54 05/13/22 07:54 05/13/22 07:54 Oxygen Flow Rate (L/min) 2 Oxygen Delivery Method Nasal Cannula Weight: 97 kg Body Mass Index (BMI) 39.1 Intake & Output: Intake and Output for Last 24 Hours 05/11/22 05/12/22 05/13/22 23:59 23:59 23:59 Intake Total 3020.75 / 3020.75 729.25 / 1129.25 1165 / 1165 Balance 3020.75 / 3020.75 729.25 / 1129.25 1165 / 1165 Lab / Micro Data Result Diagrams: 05/13/22 05:53 05/12/22 05:38 Labs: Laboratory Results - last 24 hr 05/13/22 05:53: WBC 5.5, RBC 3.29 L, Hgb 9.1 L, Hct 29.5 L, MCV 89.7, MCH 27.7, MCHC 30.8 L, RDW Std Deviation 48.5 H, RDW Coeff of Rufino 14.8 H, Plt Count 110 L, MPV 10.5 Micro: Microbiology 05/10/22 14:19 Tissue - Knee Gram Stain - Final 05/10/22 14:19 Tissue - Knee Wound Culture - Preliminary No growth-Final to follow 05/10/22 14:24 Tissue - Knee Gram Stain - Final 05/10/22 14:24 Tissue - Knee Wound Culture - Preliminary No growth-Final to follow 05/10/22 14:12 Tissue - Knee Gram Stain - Final 05/10/22 14:12 Tissue - Knee Wound Culture - Preliminary No growth-Final to follow 04/27/22 11:14 Swab (Method) Nasal Screen MRSA/MSSA - Final Physical Exam Const alert and no apparent distress Resp normal respiratory effort, no retractions, no use of accessory muscles and clear to auscultation bilaterally Cardio regular rate, regular rhythm, S1 normal heart sound and S2 normal heart sound GI normal to inspection, nondistended, normoactive bowel sounds Extremity Extremity Narrative: left leg in an immobilizer. Assessment & Plan Assessment/Plan (1) Debility: PLAN: continue PT/OT. (2) Infected prosthetic knee joint: PLAN: 05/12: Preliminary wound culture shows no growth, 1+ RBC, no organisms. The patient was evaluated by ID. Surgical culture is still pending. Will need PICC line and 6 weeks of IV bank ceftriaxone, stop date 06/21/2022 with weekly labs. Plan is for her to go to TCU for IV antibiotics post DC. Culture thus far showing Staphylococcus species. Further identification pending. 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 VTE prophylaxis, Xarelto for 2 weeks and additional 2 weeks of aspirin 81 mg twice daily as recommended by orthopedic surgeon. I prefer Xarelto for 4 weeks. (4) Blood loss anemia: PLAN: Mild acute blood loss anemia. Down to 9.1. No need for TF. Monitor. (5) Dehydration: PLAN: DC HCTZ and if the BP increases will adjust antihypertensives. CREAT CL is in the 30's and she is on Vancomycin PLAN: Plan Disposition: Medically stable for discharge. Currently awaiting on insurance prior authorization before patient go to the transitional care unit. Charges/Coding Visit Charges Inpatient E&M: 98469 Subs Hosp L2
[2022-05-13] MEDS: Multivitamins,Ther W-Minerals Tablet 1 TABLET PO (08:02)
[2022-05-13] MEDS: Calcium Carb/Vitamin D 1 TABLET Tablet PO (08:02)
[2022-05-13] MEDS: Cyanocobalamin 500 MCG Tablet 1000 MCG PO (08:03)
[2022-05-13] MEDS: Ensure Surgery 237 ML LIQUID PO ×3 (08:07→17:33)
[2022-05-13] MEDS: Gabapentin 300 MG Capsule PO ×3 (08:07→17:33)
[2022-05-13] MEDS: amLODIPine 2.5 MG Tablet PO (10:51)
[2022-05-13] MEDS: Magnesium Chloride 64 MG Delay Rel.Tablet PO (10:51)
[2022-05-13 10:52] VITALS: PULSE 89
[2022-05-13] MEDS: Senna/Docusate Sodium 1 Tablet 2 TABLET PO (10:52)
[2022-05-13] MEDS: Pantoprazole Sodium 40 MG Tablet PO (10:52)
[2022-05-13] MEDS: Famotidine 20 MG Tablet PO (10:52)
[2022-05-13] MEDS: Metoprolol(XL)Succ 100 MG Tablet PO (10:52)
[2022-05-13] MEDS: Sertraline 100 MG Tablet PO (10:53)
[2022-05-13] MEDS: Cholecalciferol (VIT D3) 25 MCG TABLET (1,000 UNITS) PO (10:53)
[2022-05-13 14:02] VITALS: BP 131/86; PULSE 82; RESP 16; TEMP 36.8; O2SAT 98
--- NOTE | 2022-05-13 14:04 | PCM.PN.ORT ---
Subjective Subjective Patient doing well overall. No acute events overnight. She is still on oxygen but oxygenating well on 2 L. While I was in the room her oxygen was down below her mouth and continue to oxygenate well. Dressing was changed today patient does still have small amount of oozing from the midportion of the incision. Remains medically stable. Objective Data Objective Data Vital Signs: Vital Signs Temp Pulse Resp BP Pulse Ox O2 Del Method O2 Flow Rate 97.9 F 89 16 113/76 92 Nasal Cannula 2 05/13/22 07:54 05/13/22 10:52 05/13/22 07:54 05/13/22 07:54 05/13/22 07:54 05/13/22 07:57 05/13/22 07:57 Oxygen Flow Rate (L/min) 2 Oxygen Delivery Method Nasal Cannula Weight: 213 lb 13.574 oz Body Mass Index (BMI) 39.1 Intake & Output: Intake and Output for Last 24 Hours 05/11/22 05/12/22 05/13/22 23:59 23:59 23:59 Intake Total 3020.75 / 3020.75 729.25 / 1129.25 1215 / 1215 Balance 3020.75 / 3020.75 729.25 / 1129.25 1215 / 1215 Lab / Micro Data Attestation: I reviewed the patient's lab results. Result Diagrams: 05/13/22 05:53 05/12/22 05:38 Labs: Laboratory Results - last 24 hr 05/13/22 05:53: WBC 5.5, RBC 3.29 L, Hgb 9.1 L, Hct 29.5 L, MCV 89.7, MCH 27.7, MCHC 30.8 L, RDW Std Deviation 48.5 H, RDW Coeff of Rufino 14.8 H, Plt Count 110 L, MPV 10.5 Micro: Microbiology 05/10/22 14:24 Tissue - Knee Gram Stain - Final 05/10/22 14:24 Tissue - Knee Wound Culture - Preliminary No growth-Final to follow 05/10/22 14:24 Tissue - Knee Anaerobic Culture - Preliminary No growth in 48 hours. 05/10/22 14:12 Tissue - Knee Gram Stain - Final 05/10/22 14:12 Tissue - Knee Wound Culture - Preliminary No growth-Final to follow 05/10/22 14:12 Tissue - Knee Anaerobic Culture - Preliminary No growth in 48 hours. 05/10/22 14:19 Tissue - Knee Gram Stain - Final 05/10/22 14:19 Tissue - Knee Wound Culture - Preliminary Staphylococcus species 05/10/22 14:19 Tissue - Knee Anaerobic Culture - Preliminary No growth in 48 hours. 04/27/22 11:14 Swab (Method) Nasal Screen MRSA/MSSA - Final Physical Exam Const alert, oriented x3 and no apparent distress General Appearance: cooperative and comfortable Resp normal respiratory effort Resp Narrative: Nasal cannula on her chin. Extremity Extremity Narrative: Left lower extremity: Dressing did have some moderate saturation over the mid to distal area connecting the 2 sides. Based on previous examinations I did elect to change. The incision overall is healthy without erythema there is some mild dark blood at the mid to distal portion of the incision. Sensations intact to light touch saphenous, sural, superficial peroneal, deep peroneal, and tibial distributions Motors intact EHL, DF, PF calves are soft and supple Assessment & Plan Assessment/Plan (1) Infected prosthetic knee joint: PLAN: 1. S/P left knee total knee explantation with placement of antibiotic spacer and nonbiodegradable antibiotic delivery system POD #3 2. Continue Pain Medications: Tylenol and oxycodone 3. DVT Prophylaxis: Xarelto for 2 weeks postoperatively followed by aspirin 81 mg twice daily for an additional 2 weeks. We will continue to weigh risks and benefits. Appreciate medicine's input of preference for 4 weeks however patient screening criteria suggest aspirin for the final 2 weeks would be sufficient especially since we are planning on increasing her weightbearing status and mobility at that time. We will continue to assess risk factors prior to changing to aspirin prophylaxis. Including the fact the patient continues to have mild oozing from wound. 4. PT/OT: Toe-touch weightbearing left lower extremity with walker. Continue with knee immobilizer 5. Hb: 9.1, for the most part asymptomatic however still requiring 2 L of oxygen with nasal cannula (not directly in nostrils this morning and still saturating well). Postoperative anemia secondary to acute blood loss from surgery without any intra operative complications. 6. Postoperative hypoxia: Patient is currently on room air during exam based on placement of nasal cannula and doing well.. She denies any chest pain or shortness of breath. I again expressed the importance of incentive spirometer 7. Continue postoperative medical management per medicine 8. Infectious disease consultation: Infectious disease has established antibiotics and currently on vancomycin and ceftriaxone. Stop date will be June 21, 2022 with weekly labs. Follow-up with infectious disease in 2 weeks if patient does not go to the transitional care unit. Gram stains show no organisms however, 1 out of 3 currently showing a staph species from broth. This may allow us to further adjust antibiotic regimens. 9. Encouraged Incentive Spirometry 10. Wound: Patient dressing was changed today. She does need to have some bruising. Based on patient's placement on DOACs postoperatively I would recommend we have the wound care nurse place a incisional wound VAC prior to discharge tomorrow. This can be done with a disposable system such as VAC via or Prevena and discontinued after 5 to 7 days of use. Disposition: Plan for patient is for discharge to transitional care unit at [facility] once pre-CERT has been obtained. Orthopedically she appears to be stable. She does have some limitations and difficulty with toe-touch weightbearing. Increased pain while up and working with therapy. We will continue to monitor the dressing as there has been some increased drainage. May need to change dressing tomorrow versus possible incisional wound VAC. Patient will continue with above pain medications. Continue with the Xarelto for DVT prophylaxis. Again we are waiting on insurance for pre-CERT for patient to be discharged. Hopeful for Saturday, May 14, 2022. This dictation was created using voice recognition software. Phonetic and/or grammatical errors may exist. [facility] Office:
[2022-05-13] MEDS: Pramipexole Di-HCl 0.5 MG Tablet PO (17:34)
[2022-05-13 20:00] VITALS: BP 155/96; PULSE 88; RESP 18; TEMP 36.8; O2SAT 96
[2022-05-13] MEDS: Morphine 2 MG/ML Syringe IV (20:02)
[2022-05-14] VITALS (7 sets, daily range): BP systolic 105–144; BP diastolic 65–83; PULSE 75–87; RESP 16–20; TEMP 36.6–36.9; O2SAT 93–97
[2022-05-14] MEDS: oxyCODONE 5 MG Tablet PO ×4 (03:44→18:14)
[2022-05-14] MEDS: Rivaroxaban 10 MG Tablet PO (06:08)
[2022-05-14] MEDS: 0.9% Saline Lock 10 ML Syringe IV ×2 (06:08→21:10)
[2022-05-14] MEDS: Acetaminophen 500 MG Tablet 1000 MG PO ×3 (06:08→21:10)
--- NOTE | 2022-05-14 06:43 | PCM.RX.CS ---
Consult Type of Consult: Follow-up Suspected Infection: Other - Wound Labs: Sodium 132 mmol/L (136-145) L 05/12/22 05:38 Potassium 4.4 mmol/L (3.5-5.1) 05/12/22 05:38 Chloride 101 mmol/L (98-107) 05/12/22 05:38 Carbon Dioxide 29.0 mmol/L (21.0-32.0) 05/12/22 05:38 Anion Gap 2 (5-15) L 05/12/22 05:38 BUN 26 mg/dL (7-18) H 05/12/22 05:38 Creatinine 0.83 mg/dL (0.55-1.02) 05/12/22 05:38 Est GFR (MDRD) Af Amer 86 mL/min (>60) 05/12/22 05:38 Est GFR (MDRD) Non-Af 71 mL/min (>60) 05/12/22 05:38 BUN/Creatinine Ratio 31.3 RATIO (10-20) H 05/12/22 05:38 Glucose 153 mg/dL (74-106) H 05/12/22 05:38 Vancomycin Trough 11.0 ug/mL (5.0-15.0) 05/14/22 05:21 Microbiology: Microbiology 05/10/22 14:24 Tissue - Knee Gram Stain - Final 05/10/22 14:24 Tissue - Knee Wound Culture - Preliminary No growth-Final to follow 05/10/22 14:24 Tissue - Knee Anaerobic Culture - Preliminary No growth in 48 hours. 05/10/22 14:12 Tissue - Knee Gram Stain - Final 05/10/22 14:12 Tissue - Knee Wound Culture - Preliminary No growth-Final to follow 05/10/22 14:12 Tissue - Knee Anaerobic Culture - Preliminary No growth in 48 hours. 05/10/22 14:19 Tissue - Knee Gram Stain - Final 05/10/22 14:19 Tissue - Knee Wound Culture - Preliminary Staphylococcus species 05/10/22 14:19 Tissue - Knee Anaerobic Culture - Preliminary No growth in 48 hours. 04/27/22 11:14 Swab (Method) Nasal Screen MRSA/MSSA - Final Goal Trough: 10-15 mcg/mL Pharmacy Plan for Drug Dosing: VANCOMYCIN LEVEL RECEIVED Current Vancomycin Dose: 750mg Q12H Number of Doses Received: multiple (> 5) Vancomycin Level: 11.0 Hours Since Last Dose: 11.25 Renal Function: sCr 0.83 (05/12/22), no current chem labs today Renal Function Trend: stable Vancomycin Plan/Comments: Continue Vancomycin 750mg Q12H Pending Level: Vancomycin trough @ 0530 05/16/22 Pharmacy Service will continue to monitor and adjust dosing as required. Labs to be done on [date and time ordered]: Vancomycin trough @ 0530 05/16/22
--- NOTE | 2022-05-14 06:53 | PCM.PN.ORT ---
Subjective Subjective The patient was sitting in bed upon examination. Patient denies any chest pain, shortness of breath, dizziness, lightheadedness, nausea or vomiting, or calf pain. Pain is controlled on medications. No adverse overnight events. Patient overall states she is doing better today as far as with walking with toe-touch weightbearing. She still has pain with the left knee. She did have drainage continuing yesterday in which Dr. Malcom Loredo did replace dressing. She does have some drainage today and we are going to consult the wound nurse to place a Prevena wound VAC for an additional 5 days. Patient has been on room air saturating greater than 93%. Plan is for patient to go to transitional care unit once pre-CERT has been obtained. Patient did have 1 culture grow out Staphylococcus and we will appreciate input from infectious disease for continued antibiotics. Objective Data Objective Data Vital Signs: Vital Signs Temp Pulse Resp BP Pulse Ox O2 Del Method O2 Flow Rate 98.3 F 82 18 110/79 93 Room Air 2 05/14/22 03:42 05/14/22 03:42 05/14/22 03:42 05/14/22 03:42 05/14/22 03:42 05/14/22 03:42 05/13/22 07:57 Oxygen Flow Rate (L/min) 2 Oxygen Delivery Method Room Air Weight: 97 kg Body Mass Index (BMI) 39.1 Intake & Output: Intake and Output for Last 24 Hours 05/12/22 05/13/22 05/14/22 23:59 23:59 23:59 Intake Total 729.25 / 1129.25 1479 1149 / 1149 Balance 729.25 / 1129.25 1479 1149 / 1149 Lab / Micro Data Result Diagrams: 05/13/22 05:53 05/12/22 05:38 Labs: Laboratory Results - last 24 hr 05/13/22 05:53: WBC 5.5, RBC 3.29 L, Hgb 9.1 L, Hct 29.5 L, MCV 89.7, MCH 27.7, MCHC 30.8 L, RDW Std Deviation 48.5 H, RDW Coeff of Rufino 14.8 H, Plt Count 110 L, MPV 10.5 05/14/22 05:21: Vancomycin Trough 11.0 Micro: Microbiology 05/10/22 14:24 Tissue - Knee Gram Stain - Final 05/10/22 14:24 Tissue - Knee Wound Culture - Preliminary No growth-Final to follow 05/10/22 14:24 Tissue - Knee Anaerobic Culture - Preliminary No growth in 48 hours. 05/10/22 14:12 Tissue - Knee Gram Stain - Final 05/10/22 14:12 Tissue - Knee Wound Culture - Preliminary No growth-Final to follow 05/10/22 14:12 Tissue - Knee Anaerobic Culture - Preliminary No growth in 48 hours. 05/10/22 14:19 Tissue - Knee Gram Stain - Final 05/10/22 14:19 Tissue - Knee Wound Culture - Preliminary Staphylococcus species 05/10/22 14:19 Tissue - Knee Anaerobic Culture - Preliminary No growth in 48 hours. 04/27/22 11:14 Swab (Method) Nasal Screen MRSA/MSSA - Final Physical Exam Narrative Vital signs stable and afebrile. Patient on room air in no distress. Denies chest pain or shortness of breath SCDs and RAISSA hose are in place bilaterally Knee immobilizer in place Patient is able to plantarflex and dorsiflex actively. Sensation is intact to light touch to saphenous, sural, superficial and deep peroneal, and tibial distribution. Dressing is with minimal drainage over the middle one third clean dry and intact. Negative Homans bilaterally, negative signs and symptoms of DVT. Const alert, oriented x3 and no apparent distress General Appearance: cooperative and comfortable Resp normal respiratory effort Resp Narrative: Nasal cannula on her chin. Extremity Extremity Narrative: Left lower extremity: Dressing did have some moderate saturation over the mid to distal area connecting the 2 sides. Based on previous examinations I did elect to change. The incision overall is healthy without erythema there is some mild dark blood at the mid to distal portion of the incision. Sensations intact to light touch saphenous, sural, superficial peroneal, deep peroneal, and tibial distributions Motors intact EHL, DF, PF calves are soft and supple Assessment & Plan Assessment/Plan (1) Infected prosthetic knee joint: PLAN: 1. S/P left knee total knee explantation with placement of antibiotic spacer and nonbiodegradable antibiotic delivery system POD #4 2. Continue Pain Medications: Tylenol and oxycodone 3. DVT Prophylaxis: Xarelto for 2 weeks postoperatively followed by aspirin 81 mg twice daily for an additional 2 weeks. We will continue to weigh risks and benefits. Appreciate medicine's input of preference for 4 weeks however patient screening criteria suggest aspirin for the final 2 weeks would be sufficient especially since we are planning on increasing her weightbearing status and mobility at that time. We will continue to assess risk factors prior to changing to aspirin prophylaxis. Including the fact the patient continues to have mild oozing from wound. 4. PT/OT: Toe-touch weightbearing left lower extremity with walker. Continue with knee immobilizer 5. Postoperative hypoxia: Patient is currently on room air. She denies any chest pain or shortness of breath. I again expressed the importance of incentive spirometer 7. Continue postoperative medical management per medicine 8. Infectious disease consultation: Infectious disease has established antibiotics and currently on vancomycin and ceftriaxone. Stop date will be June 21, 2022 with weekly labs. Follow-up with infectious disease in 2 weeks if patient does not go to the transitional care unit. Gram stains show no organisms however, 1 out of 3 currently showing a staph species from broth. This may allow us to further adjust antibiotic regimens. Appreciate recommendations from infectious disease. 9. Encouraged Incentive Spirometry 10. Wound: Dressing was changed yesterday and there is some mild drainage today. I did discuss case with the wound nurse and at this time we will place Prevena incisional wound VAC for an additional 5 days. Remove the dressing on May 19, 2022. Disposition: Plan for patient is for discharge to transitional care unit at [facility] once pre-CERT has been obtained. Orthopedically she continues to appear stable. She does have some limitations and difficulty with toe-touch weightbearing but has been improving. Increased pain while up and working with therapy. Case was discussed with wound nurse and a Prevena wound VAC will be placed today. We will keep this on for an additional 5 days with removal on May 19, 2022. Prescriptions will be placed on chart and plan will be for discharge to transitional care unit when pre-CERT has been obtained. Appreciate input from infectious disease for continued management of antibiotics. This dictation was created using voice recognition software. Phonetic and/or grammatical errors may exist. [facility] Office:
--- NOTE | 2022-05-14 06:58 | PCM.TXEXTCAR ---
Diet Diet Order/Speech Therapy: 05/11/22 11:28 Diet: Cardiac - Heart Healthy Is pt able to select menu?: Yes Routine Orders/Code Status O2 Frequency: PRN Keep PO Greater than or Equal to (%): 92 Routine Lab Work: CBC (Weekly labs per infectious disease) and BMP (Weekly labs per infectious disease) Wound(s) left knee: Wound Type: Surgical Incision Dressing Change: Remove Prevena incisional wound VAC in on May 19, 2022 Therapies Weight Bearing: Toe-touch weight bearing (With walker) Physical Therapy: Eval and Treat Occupational Therapy: Eval and Treat Problem/Diagnosis (1) Infected prosthetic knee joint: Status: Acute Code(s): T84.59XA - Infection and inflammatory reaction due to other internal joint prosthesis, initial encounter; Z96.659 - Presence of unspecified artificial knee joint Plan: (1) Infected prosthetic knee joint: PLAN: 1.? S/P left knee total knee explantation with placement of antibiotic spacer and nonbiodegradable antibiotic delivery system POD #5 2.? Continue Pain Medications: Tylenol and oxycodone 3.? DVT Prophylaxis: Xarelto for 2 weeks postoperatively followed by aspirin 81 mg twice daily for an additional 2 weeks.? We will continue to weigh risks and benefits.? Appreciate medicine's input of preference for 4 weeks however patient screening criteria suggest aspirin for the final 2 weeks would be sufficient especially since we are planning on increasing her weightbearing status and mobility at that time.? We will continue to assess risk factors prior to changing to aspirin prophylaxis.? Including the fact the patient continues to have mild oozing from wound. 4.? PT/OT: Toe-touch weightbearing left lower extremity with walker.? Continue with knee immobilizer 5.? Postoperative hypoxia: Patient is currently on room air.? She denies any chest pain or shortness of breath.? I again expressed the importance of incentive spirometer 7.? Continue postoperative medical management per medicine 8.? Infectious disease consultation: Infectious disease has adjusted the antibiotics and the vancomycin has been discontinued.? She will continue with ceftriaxone with a stop date on June 21, 2022 with weekly labs.? Infectious disease will follow cultures and patient while in the transitional care unit.? Wound culture positive on the femoral membrane for Staph hominis. 9.? Encouraged Incentive Spirometry 10.? Wound: Prevena incisional wound VAC was placed yesterday and will be discontinued on May 19, 2022. Disposition: Plan for patient is for discharge to transitional care [facility] at [facility].? Pre-CERT has been obtained.? Orthopedically she continues to appear stable.? She does have some limitations and difficulty with toe-touch weightbearing but has been improving.? Increased pain while up and working with therapy.? The Prevena wound VAC will be continued for an additional 4 days and stop date on May 19, 2022.? Prescriptions will be placed on chart and plan will be for discharge to transitional care unit when pre-CERT has been obtained.? Appreciate continued follow-up and input from infectious disease for continued management of antibiotics.? Appreciate consultation from infectious disease and hospitalist on assisting with management of patient while in the hospital. I have reviewed the [place] Automated Rx Reporting System (OARRS) report for this patient for refill pattern and other prescriber involvement as part of the appropriate surveillance for the provision of acute and chronic controlled medications.? The report was requested and reviewed on the date of this entry and was considered in the prescribing process. This dictation was created using voice recognition software. Phonetic and/or grammatical errors may exist. [facility] Office: (2) History of removal of joint prosthesis of knee due to infection: Status: Acute Code(s): Z98.890 - Other specified postprocedural states; Z86.19 - Personal history of other infectious and parasitic diseases (3) Blood loss anemia: Status: Acute Code(s): D50.0 - Iron deficiency anemia secondary to blood loss (chronic) (4) Dehydration: Status: Acute Code(s): E86.0 - Dehydration Allergies/Procedures Done in Hospital Allergies No Known Allergies Allergy (Verified 05/10/22 11:27) Procedures: None (Left knee total knee explantation with placement of antibiotic spacer and nonbiodegradable antibiotic delivery system on May 10, 2022) Type of Care/Length of Stay Estimated LOS: Convalescent Care Less Than 30 days Type of Care Needed: Skilled Rehab Potential: Good Prognosis: Good Additional Orders/Day of Discharge Day of Discharge: 05/15/22 Discharge Plan Admission Admit Date/Time: 05/10/22 11:01 Attending Provider: Alessandro Floyd Primary Care Provider: Cheryl Russell Consulting Providers: Lewis Morales ; Obed Harry ; Sri Mcpherson ; Cliff Gill ; Malcom Loredo Discharge Orders/Prescriptions Prescriptions: New ceftriaxone 2 gram recon soln 2 g IV DAILY 40 Days Qty: 40 0RF Rx Instructions: stop date 06/21/22 dx: knee PJI weekly bmp, cbc, ESR, and vanc trough. Fax to [phone] routine [facility] care oxycodone 5 mg Tablet 5 - 10 mg PO Q4H PRN PRN (Reason: Pain Score 4-10) 5 Days Qty: 30 0RF sennosides-docusate sodium [Stool Softener-Stimulant Laxat] 8.6-50 mg Tablet 2 tab PO BID Qty: 0 0RF Rx Instructions: Take until first bowel movement, then as needed Xarelto 10 mg Tablet 10 mg PO DAILY@0600 10 Days Qty: 10 0RF Rx Instructions: Continue and stop Xarelto on May 24, 2022. After stopping Xarelto continue with aspirin 81 mg twice daily for an additional 2 weeks Continued sertraline 100 MG tablet 100 mg PO DAILY amlodipine 2.5 MG tablet 2.5 mg PO DAILY omeprazole 40 MG capsule,delayed release(DR/EC) 40 mg PO DAILY cyanocobalamin (vitamin B-12) 500 MCG tablet 1,000 mcg PO DAILY@0800 hydrochlorothiazide 25 MG tablet 25 mg PO DAILY multivitamin with minerals 1 EACH tablet 1 tab PO DAILY calcium carbonate-vitamin D3 1 EACH tablet 1 tab PO 0800 melatonin 5 MG tablet 10 mg PO QHS PRN (Reason: Sleep) acetaminophen 500 MG tablet 1,000 mg PO Q8H PRN (Reason: Pain) gabapentin 300 mg capsule 300 mg PO TIDCM Mag 64 64 mg tablet,delayed release (DR/EC) 64 mg PO DAILY metoprolol succinate 50 mg tablet extended release 24 hr 100 mg PO DAILY pramipexole 0.5 mg tablet 1 mg PO QHS cholecalciferol (vitamin D3) 25 mcg (1,000 unit) Tablet 25 mcg PO DAILY meloxicam 7.5 mg Tablet 7.5 mg PO BID aspirin 81 mg Tablet,Delayed Release (Dr/Ec) 81 mg PO BID Discontinued tramadol 50 mg Tablet 50 mg PO Q6H PRN PRN (Reason: Pain Score 1-5) 3 Days Qty: 12 0RF Referrals / Follow Up: Cheryl Russell DO [Primary Care Provider] - Lewis Morales PA-C [Med Staff - Adv Practice Prof] - 05/23/22 2:45 pm Disposition Disposition (needs filled in before D/C Order can be placed): Custodial Facility
[2022-05-14] MEDS: Magnesium Chloride 64 MG Delay Rel.Tablet PO (08:00)
[2022-05-14] MEDS: Calcium Carb/Vitamin D 1 TABLET Tablet PO (08:00)
[2022-05-14] MEDS: Pantoprazole Sodium 40 MG Tablet PO (08:00)
[2022-05-14] MEDS: Famotidine 20 MG Tablet PO (08:01)
[2022-05-14] MEDS: Cyanocobalamin 500 MCG Tablet 1000 MCG PO (08:01)
[2022-05-14] MEDS: Multivitamins,Ther W-Minerals Tablet 1 TABLET PO (08:01)
[2022-05-14] MEDS: Cholecalciferol (VIT D3) 25 MCG TABLET (1,000 UNITS) PO (08:01)
[2022-05-14] MEDS: Metoprolol(XL)Succ 100 MG Tablet PO (08:01)
[2022-05-14] MEDS: Gabapentin 300 MG Capsule PO ×3 (08:01→16:43)
[2022-05-14] MEDS: amLODIPine 2.5 MG Tablet PO (08:01)
[2022-05-14] MEDS: Sertraline 100 MG Tablet PO (08:03)
--- NOTE | 2022-05-14 08:49 | WOUNDNOTE ---
The Prevena VAC was applied to the left knee incision as ordered. pt tolerated well. reapplied the knee immobilizer. patient ambulated to the bathroom with walker and then to the chair. pt tolerated well. Pt denies further needs at this time.
--- NOTE | 2022-05-14 08:56 | WOUNDNOTE ---
wound photo: Left knee
--- NOTE | 2022-05-14 10:33 | CASEMGMT ---
Social work SW called Yudith at [facility]. Yudith stated bed is held for pt but insurance still has not approved. Yudith stated insurances reported not receiving clinicals during a phone call this morning. Yudith re-sent information after 8 am this morning and will wait to hear for precert. PLAN: [facility], pending precert ASAD Mitchell
--- NOTE | 2022-05-14 13:34 | PCM.PN.ID ---
Physical Exam Narrative Feeling better, no fever, no n/v/d. Const alert and no apparent distress General Appearance: cooperative Resp normal air movement and clear to auscultation bilaterally Cardio regular rate and regular rhythm GI soft to palpation, non-tender and non-distended Skin Skin Narrative: L knee wrapped ID ID: Route of nutrition/ use of supplements: [] Nutritional Intake: [] IV Site: [] Patton Catheter: [] Assessment & Plan Assessment/Plan (1) Infected prosthetic knee joint: PLAN: MS-Stapdeborah sebastianinis L knee PJI - taken to OR 05/10/[address] Loredo for spacer placement. Surg cx 1 of 3 with CoNS. Requested samples held for 14 days. Cont 6 weeks iv ceftriaxone, stop date 06/21/22 with weekly labs. Will stop vanc. Will follow, d/w medical case worker
--- NOTE | 2022-05-14 13:58 | CASEMGMT ---
Addendum entered by Dallas Domínguez 05/14/22 15:34: Call received from [employer] She states pre-cert was obtained, starting tomorrow 05/15 and is good until 05/17. Original Note: TRACY HANEY NOTE: Reviewed Dr Harry note from today. Ceftriaxone to be continued and Vanco to be stopped. PENELOPE Edmonds, made aware. He was also made aware pre-cert is still pending. He states, if pre-cert is obtained today, he will come today and update med req to remove Vanco. Otherwise, he will update med req tomorrow. Call placed to [employer] [facility]. She was made aware Vanco is being stopped. She states is hopeful pre-cert will be obtained today. She will contact this RN CM if it is received. Claudia INTERIANO RN, CM
--- NOTE | 2022-05-14 13:59 | PCM.PN.HOSP ---
Subjective Subjective Had calf cramps last night. Objective Data Objective Data Vital Signs: Vital Signs Temp Pulse Resp BP Pulse Ox O2 Del Method O2 Flow Rate 36.6 C 87 18 115/83 H 96 Room Air 2 05/14/22 07:50 05/14/22 08:01 05/14/22 07:50 05/14/22 07:50 05/14/22 10:52 05/14/22 07:50 05/13/22 07:57 Oxygen Flow Rate (L/min) 2 Oxygen Delivery Method Room Air Weight: 97 kg Body Mass Index (BMI) 39.1 Intake & Output: Intake and Output for Last 24 Hours 05/12/22 05/13/22 05/14/22 23:59 23:59 23:59 Intake Total 729. / 1129. 1481979 1464 / 1464 Balance 729. / 1128. 1481979 1464 / 1464 Lab / Micro Data Result Diagrams: 05/13/22 05:53 05/12/22 05:38 Labs: Laboratory Results - last 24 hr 05/14/22 05:21: Vancomycin Trough 11.0 Micro: Microbiology 05/10/22 14:19 Tissue - Knee Gram Stain - Final 05/10/22 14:19 Tissue - Knee Wound Culture - Preliminary Staphylococcus hominis hominis 05/10/22 14:19 Tissue - Knee Anaerobic Culture - Preliminary No growth in 48 hours. 05/10/22 14:24 Tissue - Knee Gram Stain - Final 05/10/22 14:24 Tissue - Knee Wound Culture - Preliminary No growth-Final to follow 05/10/22 14:24 Tissue - Knee Anaerobic Culture - Preliminary No growth in 48 hours. 05/10/22 14:12 Tissue - Knee Gram Stain - Final 05/10/22 14:12 Tissue - Knee Wound Culture - Preliminary No growth-Final to follow 05/10/22 14:12 Tissue - Knee Anaerobic Culture - Preliminary No growth in 48 hours. 04/27/22 11:14 Swab (Method) Nasal Screen MRSA/MSSA - Final Physical Exam Const alert and no apparent distress Constitutional Narrative: up in chair. Psych affect normal Assessment & Plan Assessment/Plan (1) Debility: PLAN: PT OT (2) Infected prosthetic knee joint: PLAN: 05/12: Preliminary wound culture shows no growth, 1+ RBC, no organisms. The patient was evaluated by ID.? Surgical culture is still pending.? Will need PICC line and 6 weeks of IV bank ceftriaxone, stop date 06/21/2022 with weekly labs. Plan is for her to go to TCU for IV antibiotics post DC. 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 VTE prophylaxis, Xarelto for 2 weeks and additional 2 weeks of aspirin 81 mg twice daily as recommended by orthopedic surgeon. (4) Blood loss anemia: PLAN: Mild acute blood loss anemia.? Down to 9.1. No need for TF. Monitor. PLAN: Plan Medically stable for discharge. We will sign off. Please contact for any additional medical concerns Charges/Coding Visit Charges Inpatient E&M: [id number] [facility] Hosp L1
[2022-05-14] MEDS: Pramipexole Di-HCl 0.5 MG Tablet PO (16:43)
[2022-05-14] MEDS: MELATONIN 10 MG TABLET PO (21:10)
[2022-05-14] MEDS: cycloBENZAPRine HCl 5 MG TABLET PO (21:10)
[2022-05-15] MEDS: oxyCODONE 5 MG Tablet PO ×4 (01:35→21:36)
[2022-05-15 02:00] VITALS: BP 138/73; PULSE 70; RESP 18; TEMP 36.6; O2SAT 96
[2022-05-15] MEDS: Acetaminophen 500 MG Tablet 1000 MG PO ×3 (05:23→21:35)
[2022-05-15] MEDS: Rivaroxaban 10 MG Tablet PO (05:23)
--- NOTE | 2022-05-15 06:29 | PN.ORTHO_ITS ---
Subjective Subjective The patient was sitting in bed upon examination. Patient denies any chest pain, shortness of breath, dizziness, lightheadedness, nausea or vomiting, or calf pain. Pain is controlled on medications. No adverse overnight events. Patient overall is doing well this morning. She does continue to complain of pain with the left knee but controlled on medications. We have obtained pre-CERT for patient to go to transitional care unit. Antibiotics have been adjusted by infectious disease. She has also had Prevena wound VAC placed. Objective Data Objective Data Vital Signs: Vital Signs Temp Pulse Resp BP Pulse Ox O2 Del Method O2 Flow Rate 97.8 F 70 18 138/73 H 96 Room Air 2 05/15/22 02:00 05/15/22 02:00 05/15/22 02:00 05/15/22 02:00 05/15/22 02:00 05/15/22 02:00 05/13/22 07:57 Oxygen Flow Rate (L/min) 2 Oxygen Delivery Method Room Air Weight: 97 kg Body Mass Index (BMI) 39.1 Intake & Output: Intake and Output for Last 24 Hours 05/13/22 05/14/22 05/15/22 23:59 23:59 23:59 Intake Total 1479 1464 / 1464 Balance 1479 1464 / 1464 Lab / Micro Data Result Diagrams: 05/13/22 05:53 05/12/22 05:38 Labs: Laboratory Results - last 24 hr 05/14/22 05:21: Vancomycin Trough 11.0 Micro: Microbiology 05/10/22 14:19 Tissue - Knee Gram Stain - Final 05/10/22 14:19 Tissue - Knee Wound Culture - Preliminary Staphylococcus hominis hominis 05/10/22 14:19 Tissue - Knee Anaerobic Culture - Preliminary No growth in 48 hours. 05/10/22 14:24 Tissue - Knee Gram Stain - Final 05/10/22 14:24 Tissue - Knee Wound Culture - Preliminary No growth-Final to follow 05/10/22 14:24 Tissue - Knee Anaerobic Culture - Preliminary No growth in 48 hours. 05/10/22 14:12 Tissue - Knee Gram Stain - Final 05/10/22 14:12 Tissue - Knee Wound Culture - Preliminary No growth-Final to follow 05/10/22 14:12 Tissue - Knee Anaerobic Culture - Preliminary No growth in 48 hours. 04/27/22 11:14 Swab (Method) Nasal Screen MRSA/MSSA - Final Physical Exam Narrative Vital signs stable and afebrile. SCDs and RAISSA hose are in place bilaterally Patient is able to plantarflex and dorsiflex actively. Sensation is intact to light touch to saphenous, sural, superficial and deep peroneal, and tibial distribution. Prevena wound VAC in place with no drainage in tubing or canister Knee immobilizer in place Negative Homans bilaterally, negative signs and symptoms of DVT. Const alert, oriented x3 and no apparent distress General Appearance: cooperative and comfortable Resp normal respiratory effort Resp Narrative: Nasal cannula on her chin. Extremity Extremity Narrative: Left lower extremity: Dressing did have some moderate saturation over the mid to distal area connecting the 2 sides. Based on previous examinations I did elect to change. The incision overall is healthy without erythema there is some mild dark blood at the mid to distal portion of the incision. Sensations intact to light touch saphenous, sural, superficial peroneal, deep peroneal, and tibial distributions Motors intact EHL, DF, PF calves are soft and supple Assessment & Plan Assessment/Plan (1) Infected prosthetic knee joint: PLAN: 1. S/P left knee total knee explantation with placement of antibiotic spacer and nonbiodegradable antibiotic delivery system POD #5 2. Continue Pain Medications: Tylenol and oxycodone 3. DVT Prophylaxis: Xarelto for 2 weeks postoperatively followed by aspirin 81 mg twice daily for an additional 2 weeks. We will continue to weigh risks and benefits. Appreciate medicine's input of preference for 4 weeks however patient screening criteria suggest aspirin for the final 2 weeks would be sufficient especially since we are planning on increasing her weightbearing status and mobility at that time. We will continue to assess risk factors prior to taylor ing to aspirin prophylaxis. Including the fact the patient continues to have mild oozing from wound. 4. PT/OT: Toe-touch weightbearing left lower extremity with walker. Continue with knee immobilizer 5. Postoperative hypoxia: Patient is currently on room air. She denies any chest pain or shortness of breath. I again expressed the importance of incentive spirometer 7. Continue postoperative medical management per medicine 8. Infectious disease consultation: Infectious disease has adjusted the antibiotics and the vancomycin has been discontinued. She will continue with ceftriaxone with a stop date on June 21, 2022 with weekly labs. Infectious disease will follow cultures and patient while in the transitional care unit. Wound culture positive on the femoral membrane for Staph hominis. 9. Encouraged Incentive Spirometry 10. Wound: Prevena incisional wound VAC was placed yesterday and will be discontinued on May 19, 2022. Disposition: Plan for patient is for discharge to transitional care unit at [facility]. Pre-CERT has been obtained. Orthopedically she continues to appear stable. She does have some limitations and difficulty with toe-touch weightbearing but has been improving. Increased pain while up and working with therapy. The Prevena wound VAC will be continued for an additional 4 days and stop date on May 19, 2022. Prescriptions will be placed on chart and plan will be for discharge to transitional care unit when pre-CERT has been obtained. Appreciate continued follow-up and input from infectious disease for continued management of antibiotics. Appreciate consultation from infectious disease and hospitalist on assisting with management of patient while in the hospital. I have reviewed the [place] Automated Rx Reporting System (OARRS) report for this patient for refill pattern and other prescriber involvement as part of the appropriate surveillance for the provision of acute and chronic controlled medications. The report was requested and reviewed on the date of this entry and was considered in the prescribing process. This dictation was created using voice recognition software. Phonetic and/or grammatical errors may exist. [facility] Office: (2) History of removal of joint prosthesis of knee due to infection: (3) Blood loss anemia: (4) Dehydration:
--- NOTE | 2022-05-15 06:39 | DS.PCM_ITS ---
Providers Date of Admission: 05/10/22 Date of Discharge: 05/15/22 Primary Care Physician: Dr. Cheryl Russell, Consultations 05/10/22 15:47 Consult: Infectious Disease Routine Consulting Provider: Obed Harry Reason for Consult: l tka pji EMERGENT Consult: No Notified: Yes Date Notified: 05/10/22 Time Notified: 15:48 Method of Notification: Answering Service 05/10/22 15:48 Consult: Hospitalist Routine Consulting Provider: Jaclyn Anguiano Reason for Consult: post op med management EMERGENT Consult: No Notified: Yes Date Notified: 05/10/22 Time Notified: 15:48 Method of Notification: Verbal 05/14/22 06:52 Consult: Onc/Wound/electrologist Routine Comment: Reason for Consult:: Post-op draining wound left knee Comments:: Pravena incisional wound vac Reason For Visit: LT TOTAL KNEE REVISION Diagnosis Discharge Diagnosis (1) Infected prosthetic knee joint: Status: Acute Code(s): T84.59XA - Infection and inflammatory reaction due to other internal joint prosthesis, initial encounter; Z96.659 - Presence of unspecified artificial knee joint Plan: (1) Infected prosthetic knee joint: PLAN: 1.? S/P left knee total knee explantation with placement of antibiotic spacer and nonbiodegradable antibiotic delivery system POD #5 2.? Continue Pain Medications: Tylenol and oxycodone 3.? DVT Prophylaxis: Xarelto for 2 weeks postoperatively followed by aspirin 81 mg twice daily for an additional 2 weeks.? We will continue to weigh risks and benefits.? Appreciate medicine's input of preference for 4 weeks however patient screening criteria suggest aspirin for the final 2 weeks would be sufficient especially since we are planning on increasing her weightbearing status and mobility at that time.? We will continue to assess risk factors prior to changing to aspirin prophylaxis.? Including the fact the patient continues to have mild oozing from wound. 4.? PT/OT: Toe-touch weightbearing left lower extremity with walker.? Continue with knee immobilizer 5.? Postoperative hypoxia: Patient is currently on room air.? She denies any chest pain or shortness of breath.? I again expressed the importance of incentive spirometer 7.? Continue postoperative medical management per medicine 8.? Infectious disease consultation: Infectious disease has adjusted the antibiotics and the vancomycin has been discontinued.? She will continue with ceftriaxone with a stop date on June 21, 2022 with weekly labs.? Infectious disease will follow cultures and patient while in the transitional care unit.? Wound culture positive on the femoral membrane for Staph hominis. 9.? Encouraged Incentive Spirometry 10.? Wound: Prevena incisional wound VAC was placed yesterday and will be discontinued on May 19, 2022. Disposition: Plan for patient is for discharge to transitional care unit at [facility].? Pre-CERT has been obtained.? Orthopedically she continues to appear stable.? She does have some limitations and difficulty with toe-touch weightbearing but has been improving.? Increased pain while up and working with therapy.? The Prevena wound VAC will be continued for an additional 4 days and stop date on May 19, 2022.? Prescriptions will be placed on chart and plan will be for discharge to transitional care unit when pre-CERT has been obtained.? Appreciate continued follow-up and input from infectious disease for continued management of antibiotics.? Appreciate consultation from infectiou s disease and hospitalist on assisting with management of patient while in the hospital. I have reviewed the [place] Automated Rx Reporting System (OARRS) report for this patient for refill pattern and other prescriber involvement as part of the appropriate surveillance for the provision of acute and chronic controlled medications.? The report was requested and reviewed on the date of this entry and was considered in the prescribing process. This dictation was created using voice recognition software. Phonetic and/or grammatical errors may exist. [facility] Office: (2) History of removal of joint prosthesis of knee due to infection: Status: Acute Code(s): Z98.890 - Other specified postprocedural states; Z86.19 - Personal history of other infectious and parasitic diseases (3) Blood loss anemia: Status: Acute Code(s): D50.0 - Iron deficiency anemia secondary to blood loss (chronic) (4) Dehydration: Status: Acute Code(s): E86.0 - Dehydration Medications at Discharge Home Medications amlodipine 2.5 mg tablet 2.5 mg PO DAILY Heart 08/04/19 calcium carbonate-vitamin D3 600 mg-125 unit tablet 1 tab PO 0800 Supplement 08/04/19 cyanocobalamin (vitamin B-12) 500 mcg tablet 1,000 mcg PO DAILY@0800 supplement 08/04/19 hydrochlorothiazide 25 mg tablet 25 mg PO DAILY Heart 08/04/19 melatonin 5 mg tablet 10 mg PO QHS PRN Sleep 08/04/19 multivitamin with minerals 1 tab PO DAILY supplement 08/04/19 omeprazole 40 mg capsule,delayed release 40 mg PO DAILY GERD 08/04/19 sertraline 100 mg tablet 100 mg PO DAILY depression 08/04/19 acetaminophen 500 mg tablet 1,000 mg PO Q8H PRN Pain 06/06/21 gabapentin 300 mg capsule 300 mg PO TIDCM pain 10/26/21 magnesium chloride 64 mg (magnesium chloride) tablet,delayed release (Mag 64) 64 mg PO DAILY supplement 10/26/21 cholecalciferol (vitamin D3) 25 mcg (1,000 unit) tablet 25 mcg PO DAILY SUPPLEMENT 01/26/22 metoprolol succinate 50 mg tablet,extended release 24 hr 100 mg PO DAILY HEART 01/26/22 pramipexole 0.5 mg tablet 1 mg PO QHS RLS 01/26/22 meloxicam 7.5 mg tablet 7.5 mg PO BID PAIN 04/27/22 aspirin 81 mg tablet,delayed release 81 mg PO BID Check with primary doctor 05/10/22 ceftriaxone 2 gram intravenous solution 2 g IV DAILY 40 days #40 ea 05/11/22 oxycodone 5 mg tablet 5 - 10 mg PO Q4H PRN PRN Pain Score 4-10 5 days #30 tabs 05/14/22 rivaroxaban 10 mg tablet (Xarelto) 10 mg PO DAILY@0600 10 days #10 tabs 05/14/22 sennosides 8.6 mg-docusate sodium 50 mg tablet (Stool Softener-Stimulant Laxative) 2 tab PO BID #0 tabs 05/14/22 Hospital Course Operations None (Status post left knee total knee explantation with placement of antibiotic spacer and nonbiodegradable antibiotic delivery system) Procedures PICC line placement Summary of Care Provided Hospital Course: Patient is a 77-year-old female who underwent previous left total knee arthroplasty by Dr. Louie Stark on October 23, 2021. Patient had progressive increased pain with weightbearing. She had difficulty with stairs. Pain was located over the proximal tibia. She had laboratory work-up and aspiration which was consistent with underlying infection. After failing conservative measures, the patient opted to proceed with a left knee explantation with placement of antibiotic spacer and antibiotic delivery system. The patient underwent the above-stated procedure on May 10, 2022. Patient did receive perioperative antibiotics. Intraoperatively was uneventful. For details please see dictated operative note. The patient was placed in thigh-high teds, bilateral SCDs, remained stable in recovery. Patient was admitted to the 3rd floor at [facility]. The patient's pain was managed with the use of IV and p.o. pain medications. Patient participated in physical therapy in which she was toe-touch weightbearing with walker. She will continue with the knee immobilizer for 2 weeks postoperatively. Patient also was managed by infectious disease with PICC line placement for 6 weeks of antibiotics. Cultures did grow out Staph hominis and she is currently on ceftriaxone IV for 6 weeks. She will follow-up with infectious disease while at the transitional care unit. Patient did have some drainage with the incision and a Prevena wound VAC was placed. She will continue with this until May 19, 2022. Patient was discharged on postoperative day #5 to transitional care unit at [facility]. She will be treated for DVT prophylaxis with Xarelto for 2 weeks followed by aspirin 81 mg twice daily for an additional 2 weeks. Patient was given medications stated below. Patient will follow up with [facility] per postop instructions for reassessment. Weight / BMI Weight Weight: 97 kg Body Mass Index (BMI) 39.1 ABG / Lab / Microbiology Data Result Diagrams: 05/13/22 05:53 05/12/22 05:38 Microbiology: Microbiology 05/10/22 14:19 Tissue - Knee Gram Stain - Final 05/10/22 14:19 Tissue - Knee Wound Culture - Preliminary Staphylococcus hominis hominis 05/10/22 14:19 Tissue - Knee Anaerobic Culture - Preliminary No growth in 48 hours. 05/10/22 14:24 Tissue - Knee Gram Stain - Final 05/10/22 14:24 Tissue - Knee Wound Culture - Preliminary No growth-Final to follow 05/10/22 14:24 Tissue - Knee Anaerobic Culture - Preliminary No growth in 48 hours. 05/10/22 14:12 Tissue - Knee Gram Stain - Final 05/10/22 14:12 Tissue - Knee Wound Culture - Preliminary No growth-Final to follow 05/10/22 14:12 Tissue - Knee Anaerobic Culture - Preliminary No growth in 48 hours. 04/27/22 11:14 Swab (Method) Nasal Screen MRSA/MSSA - Final Meaningful Use Info Meaningful Use Diagnoses (Choose all that apply): None applicable Discharge Plan Admission Admit Date/Time: 05/10/22 11:01 Attending Provider: Alessandro Floyd Primary Care Provider: Cheryl Russell Consulting Providers: Lewis Morales ; Obed Harry ; Sri Mcpherson ; Cliff Gill ; Malcom Loredo Discharge Orders/Prescriptions Prescriptions: New ceftriaxone 2 gram recon soln 2 g IV DAILY 40 Days Qty: 40 0RF Rx Instructions: stop date 06/21/22 dx: knee PJI weekly bmp, cbc, ESR, and vanc trough. Fax to [phone] routine picc care oxycodone 5 mg Tablet 5 - 10 mg PO Q4H PRN PRN (Reason: Pain Score 4-10) 5 Days Qty: 30 0RF sennosides-docusate sodium [Stool Softener-Stimulant Laxat] 8.6-50 mg Tablet 2 tab PO BID Qty: 0 0RF Rx Instructions: Take until first bowel movement, then as needed Xarelto 10 mg Tablet 10 mg PO DAILY@0600 10 Days Qty: 10 0RF Rx Instructions: Continue and stop Xarelto on May 24, 2022. After stopping Xarelto continue with aspirin 81 mg twice daily for an additional 2 weeks Continued sertraline 100 MG tablet 100 mg PO DAILY amlodipine 2.5 MG tablet 2.5 mg PO DAILY omeprazole 40 MG capsule,delayed release(DR/EC) 40 mg PO DAILY cyanocobalamin (vitamin B-12) 500 MCG tablet 1,000 mcg PO DAILY@0800 hydrochlorothiazide 25 MG tablet 25 mg PO DAILY multivitamin with minerals 1 EACH tablet 1 tab PO DAILY calcium carbonate-vitamin D3 1 EACH tablet 1 tab PO 0800 melatonin 5 MG tablet 10 mg PO QHS PRN (Reason: Sleep) acetaminophen 500 MG tablet 1,000 mg PO Q8H PRN (Reason: Pain) gabapentin 300 mg capsule 300 mg PO TIDCM Mag 64 64 mg tablet,delayed release (DR/EC) 64 mg PO DAILY metoprolol succinate 50 mg tablet extended release 24 hr 100 mg PO DAILY pramipexole 0.5 mg tablet 1 mg PO QHS cholecalciferol (vitamin D3) 25 mcg (1,000 unit) Tablet 25 mcg PO DAILY meloxicam 7.5 mg Tablet 7.5 mg PO BID aspirin 81 mg Tablet,Delayed Release (Dr/Ec) 81 mg PO BID Discontinued tramadol 50 mg Tablet 50 mg PO Q6H PRN PRN (Reason: Pain Score 1-5) 3 Days Qty: 12 0RF Referrals / Follow Up: Cheryl Russell DO [Primary Care Provider] - Lewis Morales PA-C [Med Staff - Adv Practice Prof] - 05/23/22 2:45 pm Disposition Disposition (needs filled in before D/C Order can be placed): [facility]
--- NOTE | 2022-05-15 08:44 | CASEMGMT ---
Social Work Yudith from TCU called. Bed that was supposed to be for this pt will be held up longer as current pt not discharging. Precert is good through May 17. ASAD Mitchell
[2022-05-15 08:46] VITALS: BP 136/74; PULSE 67; RESP 18; TEMP 37; O2SAT 95
[2022-05-15] MEDS: Cyanocobalamin 500 MCG Tablet 1000 MCG PO (09:25)
[2022-05-15 09:26] VITALS: PULSE 67
[2022-05-15] MEDS: Calcium Carb/Vitamin D 1 TABLET Tablet PO (09:26)
[2022-05-15] MEDS: Senna/Docusate Sodium 1 Tablet 2 TABLET PO ×2 (09:26→21:36)
[2022-05-15] MEDS: Multivitamins,Ther W-Minerals Tablet 1 TABLET PO (09:26)
[2022-05-15] MEDS: Cholecalciferol (VIT D3) 25 MCG TABLET (1,000 UNITS) PO (09:26)
[2022-05-15] MEDS: Gabapentin 300 MG Capsule PO ×3 (09:26→16:38)
[2022-05-15] MEDS: Metoprolol(XL)Succ 100 MG Tablet PO (09:26)
[2022-05-15] MEDS: Sertraline 100 MG Tablet PO (09:27)
[2022-05-15] MEDS: Pantoprazole Sodium 40 MG Tablet PO (09:27)
[2022-05-15] MEDS: amLODIPine 2.5 MG Tablet PO (09:27)
[2022-05-15] MEDS: Magnesium Chloride 64 MG Delay Rel.Tablet PO (09:27)
[2022-05-15] MEDS: Famotidine 20 MG Tablet PO (09:27)
[2022-05-15] MEDS: 0.9% Saline Lock 10 ML Syringe IV ×2 (09:28→21:36)
--- NOTE | 2022-05-15 09:48 | PHA.DC.MR ---
Pharmacy Service has performed discharge medication reconciliation for this patient. The patient's discharge medication list was reviewed for discrepancies and discrepancies were resolved. Home Medications amlodipine 2.5 mg tablet 2.5 mg PO DAILY Heart 08/04/19 calcium carbonate-vitamin D3 600 mg-125 unit tablet 1 tab PO 0800 Supplement 08/04/19 cyanocobalamin (vitamin B-12) 500 mcg tablet 1,000 mcg PO DAILY@0800 supplement 08/04/19 hydrochlorothiazide 25 mg tablet 25 mg PO DAILY Heart 08/04/19 melatonin 5 mg tablet 10 mg PO QHS PRN Sleep 08/04/19 multivitamin with minerals 1 tab PO DAILY supplement 08/04/19 omeprazole 40 mg capsule,delayed release 40 mg PO DAILY GERD 08/04/19 sertraline 100 mg tablet 100 mg PO DAILY depression 08/04/19 acetaminophen 500 mg tablet 1,000 mg PO Q8H PRN Pain 06/06/21 gabapentin 300 mg capsule 300 mg PO TIDCM pain 10/26/21 magnesium chloride 64 mg (magnesium chloride) tablet,delayed release (Mag 64) 64 mg PO DAILY supplement 10/26/21 cholecalciferol (vitamin D3) 25 mcg (1,000 unit) tablet 25 mcg PO DAILY SUPPLEMENT 01/26/22 metoprolol succinate 50 mg tablet,extended release 24 hr 100 mg PO DAILY HEART 01/26/22 pramipexole 0.5 mg tablet 1 mg PO QHS RLS 01/26/22 meloxicam 7.5 mg tablet 7.5 mg PO BID PAIN 04/27/22 aspirin 81 mg tablet,delayed release 81 mg PO BID Check with primary doctor 05/10/22 ceftriaxone 2 gram intravenous solution 2 g IV DAILY 40 days #40 ea 05/11/22 oxycodone 5 mg tablet 5 - 10 mg PO Q4H PRN PRN Pain Score 4-10 5 days #30 tabs 05/14/22 rivaroxaban 10 mg tablet (Xarelto) 10 mg PO DAILY@0600 10 days #10 tabs 05/14/22 sennosides 8.6 mg-docusate sodium 50 mg tablet (Stool Softener-Stimulant Laxative) 2 tab PO BID #0 tabs 05/14/22
--- NOTE | 2022-05-15 11:25 | CASEMGMT ---
Social Work SW in to give update to pt regarding delay in transfer to TCU. Pt voiced understanding, reported wants to wait to see if bed at TCU will open tomorrow. PLAN: TCU, pending open bed availability ASAD Mitchell
[2022-05-15] MEDS: cycloBENZAPRine HCl 5 MG TABLET PO ×2 (13:30→21:36)
[2022-05-15 15:05] VITALS: BP 119/65; PULSE 67; RESP 18; TEMP 36.9; O2SAT 95
[2022-05-15] MEDS: Pramipexole Di-HCl 0.5 MG Tablet PO (16:38)
[2022-05-15 20:40] VITALS: BP 124/42; PULSE 75; RESP 16; TEMP 36.7; O2SAT 94
[2022-05-15] MEDS: MELATONIN 10 MG TABLET PO (21:36)
[2022-05-16 02:24] VITALS: BP 136/81; PULSE 66; RESP 18; TEMP 36.5; O2SAT 94
[2022-05-16] MEDS: oxyCODONE 5 MG Tablet PO ×5 (02:39→21:12)
[2022-05-16] MEDS: Acetaminophen 500 MG Tablet 1000 MG PO ×3 (05:20→20:01)
[2022-05-16] MEDS: Rivaroxaban 10 MG Tablet PO (05:20)
[2022-05-16 07:48] VITALS: BP 115/67; PULSE 60; RESP 18; TEMP 36.7; O2SAT 94
--- NOTE | 2022-05-16 09:48 | CASEMGMT ---
Social Work SW in to discuss discharge plan with pt. SW informed TCU will not have open bed for pt until Saturday. Pt understanding. Agreeable to waiting in hospital for TCU bed availability. PLAN: TCU on Saturday when bed becomes open. ASAD Mitchlel
[2022-05-16] MEDS: 0.9% Saline Lock 10 ML Syringe IV (09:49)
[2022-05-16] MEDS: Multivitamins,Ther W-Minerals Tablet 1 TABLET PO (09:51)
[2022-05-16] MEDS: Cyanocobalamin 500 MCG Tablet 1000 MCG PO (09:51)
[2022-05-16] MEDS: Magnesium Chloride 64 MG Delay Rel.Tablet PO (09:51)
[2022-05-16] MEDS: Pantoprazole Sodium 40 MG Tablet PO (09:52)
[2022-05-16] MEDS: Famotidine 20 MG Tablet PO (09:52)
[2022-05-16] MEDS: amLODIPine 2.5 MG Tablet PO (09:52)
[2022-05-16] MEDS: Calcium Carb/Vitamin D 1 TABLET Tablet PO (09:52)
[2022-05-16] MEDS: Senna/Docusate Sodium 1 Tablet 2 TABLET PO ×2 (09:52→20:01)
[2022-05-16 09:53] VITALS: PULSE 60
[2022-05-16] MEDS: Metoprolol(XL)Succ 100 MG Tablet PO (09:53)
[2022-05-16] MEDS: Sertraline 100 MG Tablet PO (09:54)
[2022-05-16] MEDS: Gabapentin 300 MG Capsule PO ×3 (09:58→17:08)
[2022-05-16] MEDS: Cholecalciferol (VIT D3) 25 MCG TABLET (1,000 UNITS) PO (09:58)
--- NOTE | 2022-05-16 10:44 | PN_ITS ---
Progress Note Patient doing well. No acute events overnight. Was unable to be discharged yesterday after facility bed did not open. It appears the bed should be open today and patient should be able to go. No significant changes to treatment plan. Physical Exam Const alert and oriented x3 Extremity Extremity Narrative: Left lower extremity: Knee immobilizer in place. VAC dressing is clean dry and intact no drainage in tubing Sensations intact to light touch saphenous, sural, superficial peroneal, deep peroneal, and tibial distributions Motors intact EHL, DF, PF calves are soft and supple Assessment & Plan Assessment/Plan (1) Infected prosthetic knee joint: PLAN: 1. S/P left knee total knee explantation with placement of antibiotic spacer and nonbiodegradable antibiotic delivery system POD #6 2. Continue Pain Medications: Tylenol and oxycodone 3. DVT Prophylaxis: Xarelto for 2 weeks postoperatively followed by aspirin 81 mg twice daily for an additional 2 weeks. We will continue to weigh risks and benefits. Appreciate medicine's input of preference for 4 weeks however patient screening criteria suggest aspirin for the final 2 weeks would be sufficient especially since we are planning on increasing her weightbearing status and mobility at that time. We will continue to assess risk factors prior to changing to aspirin prophylaxis. Including the fact the patient continues to have mild oozing from wound. 4. PT/OT: Toe-touch weightbearing left lower extremity with walker. Continue with knee immobilizer 5. Postoperative hypoxia: Patient is currently on room air. She denies any chest pain or shortness of breath. I again expressed the importance of incentive spirometer 7. Continue postoperative medical management per medicine 8. Infectious disease consultation: Infectious disease has adjusted the antibiotics and the vancomycin has been discontinued. She will continue with ceftriaxone with a stop date on June 21, 2022 with weekly labs. Infectious disease will follow cultures and patient while in the transitional care unit. Wound culture positive on the femoral membrane for Staph hominis. 9. Encouraged Incentive Spirometry 10. Wound: Prevena incisional wound VAC was placed yesterday and will be discontinued on May 19, 2022. Disposition: Plan for patient is for discharge to transitional care unit at [facility]. Pre-CERT has been obtained. Orthopedically she continues to appear stable. She does have some limitations and difficulty with toe-touch weightbearing but has been improving. Increased pain while up and working with therapy. The Prevena wound VAC will be continued for an additional 3 days and stop date on May 19, 2022. Prescriptions will be placed on chart and plan will be for discharge to transitional care unit when pre-CERT has been obtained. Appreciate continued follow-up and input from infectious disease for continued management of antibiotics. Appreciate consultation from infectious disease and hospitalist on assisting with management of patient while in the hospital. This dictation was created using voice recognition software. Phonetic and/or grammatical errors may exist. [facility] Office: (2) History of removal of joint prosthesis of knee due to infection: (3) Blood loss anemia: (4) Dehydration:
[2022-05-16 11:45] VITALS: O2SAT 94
[2022-05-16 15:19] VITALS: BP 113/77; PULSE 74; RESP 18; TEMP 36.7; O2SAT 96
[2022-05-16] MEDS: Pramipexole Di-HCl 0.5 MG Tablet PO (17:11)
[2022-05-16 21:00] VITALS: BP 139/94; PULSE 74; RESP 18; TEMP 36.8; O2SAT 93
[2022-05-17] VITALS (7 sets, daily range): BP systolic 117–145; BP diastolic 66–85; PULSE 67–76; RESP 16–18; TEMP 36.7–37.2; O2SAT 94–100
[2022-05-17] MEDS: oxyCODONE 5 MG Tablet PO ×5 (04:11→22:00)
[2022-05-17] MEDS: Rivaroxaban 10 MG Tablet PO (04:22)
[2022-05-17] MEDS: Acetaminophen 500 MG Tablet 1000 MG PO ×3 (04:22→21:40)
[2022-05-17] MEDS: Gabapentin 300 MG Capsule PO ×3 (08:14→16:59)
[2022-05-17] MEDS: Cyanocobalamin 500 MCG Tablet 1000 MCG PO (08:14)
[2022-05-17] MEDS: Calcium Carb/Vitamin D 1 TABLET Tablet PO (08:14)
[2022-05-17] MEDS: Multivitamins,Ther W-Minerals Tablet 1 TABLET PO (08:14)
--- NOTE | 2022-05-17 09:07 | CASEMGMT ---
Addendum entered by Loulou Florence 05/17/22 09:37: SW spoke with physician and pt ready for discharge today. Nursing updated and orders faxed to TCU. Plan: TCU, skilled level of care ASAD Rodriguez Original Note: Social Work SW spoke with Yudith in TCU and they do have a bed available today and precert has been obtained. Physician updated. SW met with pt and informed. Pt looking forward to d/c to TCU. Pt states she will contact family and denies SW to call them. Plan: TCU ASAD Sosa
--- NOTE | 2022-05-17 10:27 | WOUNDNOTE ---
The Prevena VAC remains in place to the left knee. Good seal noted at 125mmHg suction. dressing to be removed on 05/19/22. no drainage noted in the canister.
[2022-05-17] MEDS: Magnesium Chloride 64 MG Delay Rel.Tablet PO (10:37)
[2022-05-17] MEDS: Pantoprazole Sodium 40 MG Tablet PO (10:37)
[2022-05-17] MEDS: Famotidine 20 MG Tablet PO (10:37)
[2022-05-17] MEDS: Cholecalciferol (VIT D3) 25 MCG TABLET (1,000 UNITS) PO (10:37)
[2022-05-17] MEDS: amLODIPine 2.5 MG Tablet PO (10:37)
[2022-05-17] MEDS: Sertraline 100 MG Tablet PO (10:37)
[2022-05-17] MEDS: Metoprolol(XL)Succ 100 MG Tablet PO (10:37)
--- NOTE | 2022-05-17 14:17 | NURSING ---
report given to TCU nurse isis
--- NOTE | 2022-05-17 14:28 | PCM.HOSP.N ---
Hospitalist Note Notified by nursing that patient had a positive COVID-19 test. Patient was post go to rehab today. Patient is currently 95% on room air. No treatment for her COVID-19 is indicated at this time.
--- NOTE | 2022-05-17 15:18 | PN.ORTHO_ITS ---
Subjective Subjective Transfer of Care to Medicine Service Patient is a 77-year-old female status post left total knee exploration and pl acement of antibiotic spacer postop day 7. Patient has been evaluated by infectious disease and has been ready to transfer to TCU. Patient was to go today however upon getting ready for transport she tested positive for COVID. At this point Dr. Loredo has spoke with medicine we will be transferring primary care to medicine orthopedics will be signing off. She is orthopedically stable Objective Data Objective Data Vital Signs: Vital Signs Temp Pulse Resp BP Pulse Ox O2 Del Method O2 Flow Rate 98.6 F 71 18 133/76 H 95 Room Air 2 05/17/22 13:45 05/17/22 13:45 05/17/22 13:45 05/17/22 13:45 05/17/22 13:45 05/17/22 15:09 05/16/22 21:00 Oxygen Flow Rate (L/min) 2 Oxygen Delivery Method Room Air Weight: 97 kg Body Mass Index (BMI) 39.1 Intake & Output: Intake and Output for Last 24 Hours 05/15/22 05/16/22 05/17/22 23:59 23:59 23:59 Intake Total 63.25 / 63.25 50 / 50 50 / 50 Balance 63.25 / 63.25 50 / 50 50 / 50 Lab / Micro Data Result Diagrams: 05/13/22 05:53 05/12/22 05:38 Micro: Microbiology 05/17/22 13:56 Nasal Secretion SARS-CoV-2 Antigen (Rapid) - Final SARS-CoV-2 (COVID 19) 05/10/22 14:19 Tissue - Knee Gram Stain - Final 05/10/22 14:19 Tissue - Knee Wound Culture - Preliminary Staphylococcus hominis hominis 05/10/22 14:19 Tissue - Knee Anaerobic Culture - Final No growth in 5 days. 05/10/22 14:12 Tissue - Knee Gram Stain - Final 05/10/22 14:12 Tissue - Knee Wound Culture - Preliminary No growth-Final to follow 05/10/22 14:12 Tissue - Knee Anaerobic Culture - Final No growth in 5 days. 05/10/22 14:24 Tissue - Knee Gram Stain - Final 05/10/22 14:24 Tissue - Knee Wound Culture - Preliminary No growth-Final to follow 05/10/22 14:24 Tissue - Knee Anaerobic Culture - Final No growth in 5 days. 04/27/22 11:14 Swab (Method) Nasal Screen MRSA/MSSA - Final Physical Exam Narrative Vital signs stable and afebrile. SCDs and RAISSA hose are in place bilaterally Patient is able to plantarflex and dorsiflex actively. Sensation is intact to light touch to saphenous, sural, superficial and deep peroneal, and tibial distribution. Prevena wound VAC in place with no drainage in tubing or canister Knee immobilizer in place Negative Homans bilaterally, negative signs and symptoms of DVT. alert, oriented x3 and no apparent distress General Appearance: cooperative and comfortable Resp normal respiratory effort Resp Narrative: Nasal cannula on her chin. Assessment & Plan Assessment/Plan (1) History of removal of joint prosthesis of knee due to infection: PLAN: Status post left total knee exploration with placement of antibiotic spacer: orthopaedics recommendations/ plan: 1) Infected prosthetic knee joint: PLAN: 1.? S/P left knee total knee explantation with placement of antibiotic spacer and nonbiodegradable antibiotic delivery system POD #7 2.? Continue Pain Medications: Tylenol and oxycodone 3.? DVT Prophylaxis: Xarelto for 2 weeks postoperatively followed by aspirin 81 mg twice daily for an additional 2 weeks.? We will continue to weigh risks and benefits.? Appreciate medicine's input of preference for 4 weeks however patient screening criteria suggest aspirin for the final 2 weeks would be sufficient especially since we are planning on increasing her weightbearing status and mobility at that time.? We will continue to assess risk factors prior to changing to aspirin prophylaxis.? Including the fact the patient continues to have mild oozing from wound. 4.? PT/OT: Toe-touch weightbearing left lower extremity with walker.? Continue with knee immobilizer 5.? Postoperative hypoxia: Patient is currently on room air.? She denies any chest pain or shortness of breath.? I again expressed the importance of incentive spirometer 7.? Continue postoperative medical management per medicine 8.? Infectious disease consultation: Infectious disease has adjusted the antibiotics and the vancomycin has been discontinued.? She will continue with ceftriaxone with a stop date on June 21, 2022 with weekly labs.? Infectious disease will follow cultures and patient while in the transitional care unit.? Wound culture positive on the femoral membrane for Staph hominis. 9.? Encouraged Incentive Spirometry 10.? Wound: Prevena incisional wound VAC was placed 05/14/22 and will be discontinued on May 19, 2022. Disposition: Orthopedically she continues to appear stable.? She does have some limitations and difficulty with toe-touch weightbearing but has been improving.? Increased pain while up and working with therapy.? The Prevena wound VAC will be continued until stop date on May 19, 2022.?? Appreciate continued follow-up and input from infectious disease for continued management of antibiotics.? Patient tested positive for COVID upon being accepted and transferred to TCU. Dr. Loredo spoke to medicine service she is now transferred to medicine primary while they work on discharge placement. Appreciate above orthopedic recommendations. She is stable from an orthopedic standpoint and ready for discharge per orthopedics. She will have appointment in our office in 2 weeks. If this is not previously arranged will need to be arranged upon discharge. (2) Infected prosthetic knee joint: (3) Status post total right knee replacement not using cement:
--- NOTE | 2022-05-17 16:47 | CASEMGMT ---
Social Work Pt's rapid covid test is positive and therefore cannot go to TCU on this date. Nursing updated physicians. KYMBERLY spoke with Yudith in TCU. If pt has two negative PCR tests 24 hours apart, pt can then admit to TCU. Precert expires tonight and will have to be updated prior to admission if both PCRs are negative. Physician updated and would like to complete PCR testing. SW met with pt in room and explained above. If PCR is positive, pt will need to select another SNF or return home. Pt expressing frustration but understanding. Phone call with pt dgt and above explained. SW will follow up with pt in the morning to discuss discharge plan. ASAD Sosa
[2022-05-17] MEDS: Pramipexole Di-HCl 0.5 MG Tablet PO (16:59)
[2022-05-18 03:00] VITALS: BP 120/65; PULSE 75; RESP 16; TEMP 37; O2SAT 96
[2022-05-18] MEDS: oxyCODONE 5 MG Tablet PO ×4 (03:58→19:35)
[2022-05-18] MEDS: Rivaroxaban 10 MG Tablet PO (05:42)
[2022-05-18] MEDS: Acetaminophen 500 MG Tablet 1000 MG PO ×3 (05:42→22:22)
--- NOTE | 2022-05-18 07:27 | PCM.PN.HOSP ---
Subjective Subjective No fever chills. No sore throat or rhinitis. No shortness of breath. Objective Data Objective Data Vital Signs: Vital Signs Temp Pulse Resp BP Pulse Ox O2 Del Method O2 Flow Rate 37.0 C 75 16 120/65 96 Room Air 2 05/18/22 03:00 05/18/22 03:00 05/18/22 03:00 05/18/22 03:00 05/18/22 03:00 05/18/22 03:00 05/17/22 21:00 Oxygen Flow Rate (L/min) 2 Oxygen Delivery Method Room Air Weight: 97 kg Body Mass Index (BMI) 39.1 Intake & Output: Intake and Output for Last 24 Hours 05/16/22 05/17/22 05/18/22 23:59 23:59 23:59 Intake Total 50 / 50 50 / 50 Balance 50 / 50 50 / 50 Lab / Micro Data Result Diagrams: 05/13/22 05:53 05/12/22 05:38 Labs: Laboratory Results - last 24 hr 05/17/22 15:38: COVID-19 (KEM) Not Detected Micro: Microbiology 05/17/22 13:56 Nasal Secretion SARS-CoV-2 Antigen (Rapid) - Final SARS-CoV-2 (COVID 19) 05/10/22 14:19 Tissue - Knee Gram Stain - Final 05/10/22 14:19 Tissue - Knee Wound Culture - Preliminary Staphylococcus hominis hominis 05/10/22 14:19 Tissue - Knee Anaerobic Culture - Final No growth in 5 days. 05/10/22 14:12 Tissue - Knee Gram Stain - Final 05/10/22 14:12 Tissue - Knee Wound Culture - Preliminary No growth-Final to follow 05/10/22 14:12 Tissue - Knee Anaerobic Culture - Final No growth in 5 days. 05/10/22 14:24 Tissue - Knee Gram Stain - Final 05/10/22 14:24 Tissue - Knee Wound Culture - Preliminary No growth-Final to follow 05/10/22 14:24 Tissue - Knee Anaerobic Culture - Final No growth in 5 days. 04/27/22 11:14 Swab (Method) Nasal Screen MRSA/MSSA - Final Physical Exam Const alert and no apparent distress Resp normal respiratory effort, no retractions, no use of accessory muscles and clear to auscultation bilaterally Cardio regular rate, regular rhythm, S1 normal heart sound and S2 normal heart sound GI normal to inspection, nondistended, normoactive bowel sounds Extremity Extremity Narrative: Right knee in an immobilizer. Assessment & Plan Assessment/Plan (1) Debility: PLAN: PT OT (2) Infected prosthetic knee joint: QUALIFIERS: Encounter type: subsequent encounter Qualified Code(s): T84.59XD - Infection and inflammatory reaction due to other internal joint prosthesis, subsequent encounter; Z96.659 - Presence of unspecified artificial knee joint PLAN: 05/12: Preliminary wound culture shows no growth, 1+ RBC, no organisms. The patient was evaluated by ID.? Surgical culture is still pending.? Will need PICC line and 6 weeks of IV bank ceftriaxone, stop date 06/21/2022 with weekly labs. Plan is for her to go to TCU for IV antibiotics post DC. 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 VTE prophylaxis, Xarelto for 2 weeks and additional 2 weeks of aspirin 81 mg twice daily as recommended by orthopedic surgeon. (4) Blood loss anemia: PLAN: Mild acute blood loss anemia.? Down to 9.1. No need for TF. Monitor. (5) Lab test positive for detection of COVID-19 virus: PLAN: Rapid was positive PCR was negative, will repeat today and if that is negative then she can go to the transitional care unit Patient has been vaccinated and boosted Currently asymptomatic PLAN: Plan VTE prophylaxis on rivaroxaban Disposition: Insurance had to be recertified. Unclear if patient has a repeat PCR today that she would be able to go to the transitional care unit today. Charges/Coding Visit Charges Inpatient E&M: 14863 Subs Hosp L2
[2022-05-18 08:14] VITALS: BP 130/88; PULSE 61; RESP 14; TEMP 36.7; O2SAT 97
[2022-05-18] MEDS: Cholecalciferol (VIT D3) 25 MCG TABLET (1,000 UNITS) PO (08:20)
[2022-05-18] MEDS: amLODIPine 2.5 MG Tablet PO (08:21)
[2022-05-18] MEDS: Magnesium Chloride 64 MG Delay Rel.Tablet PO (08:21)
[2022-05-18] MEDS: Cyanocobalamin 500 MCG Tablet 1000 MCG PO (08:21)
[2022-05-18] MEDS: Pantoprazole Sodium 40 MG Tablet PO (08:21)
[2022-05-18] MEDS: Famotidine 20 MG Tablet PO (08:21)
[2022-05-18] MEDS: Senna/Docusate Sodium 1 Tablet 2 TABLET PO ×2 (08:21→22:22)
[2022-05-18 08:22] VITALS: PULSE 61
[2022-05-18] MEDS: Calcium Carb/Vitamin D 1 TABLET Tablet PO (08:22)
[2022-05-18] MEDS: Sertraline 100 MG Tablet PO (08:22)
[2022-05-18] MEDS: Multivitamins,Ther W-Minerals Tablet 1 TABLET PO (08:22)
[2022-05-18] MEDS: Metoprolol(XL)Succ 100 MG Tablet PO (08:22)
[2022-05-18] MEDS: Gabapentin 300 MG Capsule PO ×3 (08:22→18:36)
--- NOTE | 2022-05-18 09:45 | CASEMGMT ---
Social Work SW spoke with TCU at 0800 and updated that first PCR is negative and SW requested new precert be started as precert for SNF yesterday. Yudith confirms precert to be started. SW met with pt and updated that if second PCR is negative and precert is obtained, TCU can accept pt. SW inquired about back up plan if this does not happen and pt cannot go to TCU. Pt states her daughter does not want pt to go to SNF. Pt will return home. Pt inquiring about IV atb. SW explained this could be set up for home but home health nurse does not come daily. Pt states her grandson is a nurse and she has friends that are nurses and she will call them to confirm they can help with IV ATB if she is not able to go to TCU. SW will continue to follow for discharge planning. Plan: TCU, pending precert and second negative covid PCR ASAD Rodriguez
[2022-05-18] MEDS: 0.9% Saline Lock 10 ML Syringe IV ×2 (10:59→22:21)
[2022-05-18 15:16] VITALS: BP 120/80; PULSE 73; RESP 15; TEMP 36.8; O2SAT 96
[2022-05-18] MEDS: Pramipexole Di-HCl 0.5 MG Tablet PO (18:36)
[2022-05-18 20:41] VITALS: BP 120/80; PULSE 73; RESP 15; TEMP 36.8; O2SAT 96
[2022-05-19] MEDS: oxyCODONE 5 MG Tablet PO ×4 (00:02→20:32)
[2022-05-19 02:17] VITALS: BP 116/77; PULSE 65; RESP 16; TEMP 37.4; O2SAT 96
[2022-05-19] MEDS: Rivaroxaban 10 MG Tablet PO (05:36)
[2022-05-19] MEDS: Acetaminophen 500 MG Tablet 1000 MG PO ×3 (05:36→20:31)
--- NOTE | 2022-05-19 07:36 | PN.HOSP_ITS ---
Subjective Subjective No new events. Objective Data Objective Data Vital Signs: Vital Signs Temp Pulse Resp BP Pulse Ox O2 Del Method O2 Flow Rate 37.4 C H 65 16 116/77 96 Nasal Cannula 2 05/19/22 02:17 05/19/22 02:17 05/19/22 02:17 05/19/22 02:17 05/19/22 02:17 05/19/22 02:17 05/19/22 02:17 Oxygen Flow Rate (L/min) 2 Oxygen Delivery Method Nasal Cannula Weight: 97 kg Body Mass Index (BMI) 39.1 Intake & Output: Intake and Output for Last 24 Hours 05/17/22 05/18/22 05/19/22 23:59 23:59 23:59 Intake Total 50 / 50 50 / 50 Balance 50 / 50 50 / 50 Lab / Micro Data Result Diagrams: 05/19/22 07:08 05/19/22 07:08 Labs: Laboratory Results - last 24 hr 05/18/22 16:09: COVID-19 (KEM) Not Detected Micro: Microbiology 05/17/22 13:56 Nasal Secretion SARS-CoV-2 Antigen (Rapid) - Final SARS-CoV-2 (COVID 19) 05/10/22 14:19 Tissue - Knee Gram Stain - Final 05/10/22 14:19 Tissue - Knee Wound Culture - Preliminary Staphylococcus hominis hominis 05/10/22 14:19 Tissue - Knee Anaerobic Culture - Final No growth in 5 days. 05/10/22 14:12 Tissue - Knee Gram Stain - Final 05/10/22 14:12 Tissue - Knee Wound Culture - Preliminary No growth-Final to follow 05/10/22 14:12 Tissue - Knee Anaerobic Culture - Final No growth in 5 days. 05/10/22 14:24 Tissue - Knee Gram Stain - Final 05/10/22 14:24 Tissue - Knee Wound Culture - Preliminary No growth-Final to follow 05/10/22 14:24 Tissue - Knee Anaerobic Culture - Final No growth in 5 days. 04/27/22 11:14 Swab (Method) Nasal Screen MRSA/MSSA - Final Physical Exam Const alert and no apparent distress Psych affect normal Assessment & Plan Assessment/Plan (1) Debility: PLAN: PT OT Will need transitional care unit (2) Infected prosthetic knee joint: QUALIFIERS: Encounter type: subsequent encounter Qualified Co de(s): T84.59XD - Infection and inflammatory reaction due to other internal joint prosthesis, subsequent encounter; Z96.659 - Presence of unspecified artificial knee joint PLAN: 05/12: Preliminary wound culture shows no growth, 1+ RBC, no organisms. The patient was evaluated by ID.? Surgical culture is still pending.? Will need PICC line and 6 weeks of IV bank ceftriaxone, stop date 06/21/2022 with weekly labs. 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 VTE prophylaxis, Xarelto for 2 weeks and additional 2 weeks of aspirin 81 mg twice daily as recommended by orthopedic surgeon. (4) Blood loss anemia: PLAN: Stable mild acute blood loss anemia.? Down to 9.1. No need for TF. Monitor. (5) Lab test positive for detection of COVID-19 virus: PLAN: Rapid was positive PCR negative x 2. Patient has been vaccinated and boosted Currently asymptomatic Therefore: The rapid COVID-19 test was a false positive. Patient does not have COVID-19. PLAN: Plan VTE prophylaxis on rivaroxaban Disposition: Insurance had to be recertified. No discharge until the . Charges/Coding Visit Charges Inpatient E&M: 64742 Subs Hosp L1
[2022-05-19 07:47] LABS: Absolute Lymphocyte Count 1.24 X10^3/uL (0.83-4.51); Absolute Neutrophil Count 2.3 X10^3/uL (2.0-7.7); Basophil# 0.03 X10^3/uL; Basophil% 0.7 % (0-1); Eosinophil# 0.23 X10^3/uL; Eosinophils% 5.3 % (0-5); Hematocrit 29.5 % (37-47); Hemoglobin 9.1 g/dL (12.0-15.0); Lymphocyte # 1.24 X10^3/ul (0.83-4.51); Lymphocyte % 28.6 % (19-41); Mean Corp Hgb Conc 30.8 g/dL (32-36); Mean Corpuscular Hgb 27.4 pg (27.0-32.0); Mean Corpuscular Volume 88.9 fL (81-99); Mean Platelet Vol. 9.1 fl (6.2-12.0); Monocyte% 11.5 % (0-10); NRBC Flagged by Analyzer 0 % (0-5); Neutrophil # 2.31 X10^3/uL (2.7-7.7); Neutrophil % 53.2 % (47-70); Platelet Count 147 K/mm3 (150-450); RBC Distribution Width CV 14.6 % (11.6-14.6); RBC Distribution Width SD 47.8 fl (35.1-43.9); Red Blood Count 3.32 M/mm3 (4.2-5.4); White Blood Count 4.3 K/mm3 (4.4-11.0)
[2022-05-19 08:14] LABS: Anion Gap 3 (5-15); BUN 12 mg/dL (7-18); BUN/Creat Ratio 19.8 RATIO (10-20); Chloride 103 mmol/L (98-107); Creatinine, Serum 0.61 mg/dL (0.55-1.02); EST Glomerular Filtration Rate 102 mL/min (>60); Est Glom Filt Rate - Afr Amer 123 mL/min (>60); Estimated Creatinine Clearance 37.26 ml/min; Glucose 96 mg/dL (74-106); Sodium Level 138 mmol/L (136-145)
[2022-05-19 08:58] VITALS: BP 123/82; PULSE 65; RESP 18; TEMP 37.2; O2SAT 93
[2022-05-19 09:11] VITALS: PULSE 65
[2022-05-19] MEDS: Cyanocobalamin 500 MCG Tablet 1000 MCG PO (09:11)
[2022-05-19] MEDS: Multivitamins,Ther W-Minerals Tablet 1 TABLET PO (09:11)
[2022-05-19] MEDS: 0.9% Saline Lock 10 ML Syringe IV ×2 (09:11→09:23)
[2022-05-19] MEDS: Metoprolol(XL)Succ 100 MG Tablet PO (09:11)
[2022-05-19] MEDS: Calcium Carb/Vitamin D 1 TABLET Tablet PO (09:11)
[2022-05-19] MEDS: Famotidine 20 MG Tablet PO (09:11)
[2022-05-19] MEDS: Pantoprazole Sodium 40 MG Tablet PO (09:12)
[2022-05-19] MEDS: Senna/Docusate Sodium 1 Tablet 2 TABLET PO ×2 (09:12→20:31)
[2022-05-19] MEDS: Magnesium Chloride 64 MG Delay Rel.Tablet PO ×2 (09:12)
[2022-05-19] MEDS: Sertraline 100 MG Tablet PO (09:12)
[2022-05-19] MEDS: Cholecalciferol (VIT D3) 25 MCG TABLET (1,000 UNITS) PO (09:12)
[2022-05-19] MEDS: amLODIPine 2.5 MG Tablet PO (09:13)
[2022-05-19] MEDS: Gabapentin 300 MG Capsule PO ×3 (09:23→17:13)
[2022-05-19 14:23] VITALS: BP 113/70; PULSE 58; RESP 18; TEMP 36.6; O2SAT 96
[2022-05-19] MEDS: Pramipexole Di-HCl 0.5 MG Tablet PO (17:14)
[2022-05-19 20:25] VITALS: BP 140/83; PULSE 69; RESP 17; TEMP 36.8; O2SAT 93
[2022-05-19] MEDS: MELATONIN 10 MG TABLET PO (20:32)
[2022-05-20 02:25] VITALS: BP 131/66; PULSE 63; RESP 18; TEMP 36.8; O2SAT 93
[2022-05-20] MEDS: Acetaminophen 500 MG Tablet 1000 MG PO ×3 (03:51→21:16)
[2022-05-20] MEDS: oxyCODONE 5 MG Tablet PO ×4 (03:51→21:15)
[2022-05-20] MEDS: Rivaroxaban 10 MG Tablet PO (03:52)
--- NOTE | 2022-05-20 07:36 | PCM.PN.HOSP ---
Subjective Subjective No new events. Is contemplating about going home and having friends and family help care for her there. Objective Data Objective Data Vital Signs: Vital Signs Temp Pulse Resp BP Pulse Ox O2 Del Method O2 Flow Rate 36.8 C 63 18 131/66 H 93 Room Air 2 05/20/22 02:25 05/20/22 02:25 05/20/22 02:25 05/20/22 02:25 05/20/22 02:25 05/20/22 02:25 05/19/22 08:13 Oxygen Flow Rate (L/min) 2 Oxygen Delivery Method Room Air Weight: 97 kg Body Mass Index (BMI) 39.1 Intake & Output: Intake and Output for Last 24 Hours 05/18/22 05/19/22 05/20/22 23:59 23:59 23:59 Intake Total 50 / 50 50 / 50 Balance 50 / 50 50 / 50 Lab / Micro Data Result Diagrams: 05/19/22 07:08 05/19/22 07:08 Labs: Laboratory Results - last 24 hr 05/19/22 07:08: WBC 4.3 L, RBC 3.32 L, Hgb 9.1 L, Hct 29.5 L, MCV 88.9, MCH 27.4, MCHC 30.8 L, RDW Std Deviation 47.8 H, RDW Coeff of Rufino 14.6, Plt Count 147 L, MPV 9.1, Immature Gran % (Auto) 0.700, Neut % (Auto) 53.2, Lymph % (Auto) 28.6, [place] % (Auto) 11.5 H, Eos % (Auto) 5.3 H, Baso % (Auto) 0.7, Absolute Neuts (auto) 2.3, Absolute Lymphs (auto) 1.24, Nucleated RBC % 0 05/19/22 07:08: Sodium 138, Potassium 4.0, Chloride 103, Carbon Dioxide 32.0, Anion Gap 3 L, BUN 12, Creatinine 0.61, Estim Creat Clear Calc 37.26, Est GFR (MDRD) Af Amer 123, Est GFR (MDRD) Non-Af 102, BUN/Creatinine Ratio 19.8, Glucose 96, Calcium 9.0 Micro: Microbiology 05/17/22 13:56 Nasal Secretion SARS-CoV-2 Antigen (Rapid) - Final SARS-CoV-2 (COVID 19) 05/10/22 14:19 Tissue - Knee Gram Stain - Final 05/10/22 14:19 Tissue - Knee Wound Culture - Preliminary Staphylococcus hominis hominis 05/10/22 14:19 Tissue - Knee Anaerobic Culture - Final No growth in 5 days. 05/10/22 14:12 Tissue - Knee Gram Stain - Final 05/10/22 14:12 Tissue - Knee Wound Culture - Preliminary No growth-Final to follow 05/10/22 14:12 Tissue - Knee Anaerobic Culture - Final No growth in 5 days. 05/10/22 14:24 Tissue - Knee Gram Stain - Final 05/10/22 14:24 Tissue - Knee Wound Culture - Preliminary No growth-Final to follow 05/10/22 14:24 Tissue - Knee Anaerobic Culture - Final No growth in 5 days. 04/27/22 11:14 Swab (Method) Nasal Screen MRSA/MSSA - Final Physical Exam Const alert and no apparent distress Constitutional Narrative: Up in a chair. No respiratory distress. Neuro Sensorium / Orientation: awake and alert Psych affect normal Assessment & Plan Assessment/Plan (1) Debility: PLAN: PT OT Will need transitional care unit (2) Infected prosthetic knee joint: QUALIFIERS: Encounter type: subsequent encounter Qualified Code(s): T84.59XD - Infection and inflammatory reaction due to other internal joint prosthesis, subsequent encounter; Z96.659 - Presence of unspecified artificial knee joint PLAN: 05/12: Preliminary wound culture shows no growth, 1+ RBC, no organisms. The patient was evaluated by ID.? Surgical culture is still pending.? Will need PICC line and 6 weeks of IV bank ceftriaxone, stop date 06/21/2022 with weekly labs. 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 VTE prophylaxis, Xarelto for 2 weeks and additional 2 weeks of aspirin 81 mg twice daily as recommended by orthopedic surgeon. (4) Blood loss anemia: PLAN: Stable mild acute blood loss anemia.? Down to 9.1. No need for TF. Monitor. (5) Lab test positive for detection of COVID-19 virus: PLAN: Rapid was positive PCR negative x 2. Patient has been vaccinated and boosted Currently asymptomatic Therefore: The rapid COVID-19 test was a false positive. Patient does not have COVID-19. PLAN: Plan VTE prophylaxis on rivaroxaban Disposition: Insurance had to be recertified. Once insurance authorization has been recertified patient can be discharged. Charges/Coding Visit Charges Inpatient E&M: 23237 [facility] Hosp L1
[2022-05-20 09:13] VITALS: BP 119/61; PULSE 66; RESP 18; TEMP 37; O2SAT 94
[2022-05-20] MEDS: Multivitamins,Ther W-Minerals Tablet 1 TABLET PO (09:32)
[2022-05-20] MEDS: Cyanocobalamin 500 MCG Tablet 1000 MCG PO (09:32)
[2022-05-20] MEDS: Calcium Carb/Vitamin D 1 TABLET Tablet PO (09:32)
[2022-05-20] MEDS: Sertraline 100 MG Tablet PO (09:33)
[2022-05-20] MEDS: Famotidine 20 MG Tablet PO (09:33)
[2022-05-20] MEDS: amLODIPine 2.5 MG Tablet PO (09:33)
[2022-05-20] MEDS: Pantoprazole Sodium 40 MG Tablet PO (09:33)
[2022-05-20] MEDS: Senna/Docusate Sodium 1 Tablet 2 TABLET PO ×2 (09:33→21:16)
[2022-05-20] MEDS: Cholecalciferol (VIT D3) 25 MCG TABLET (1,000 UNITS) PO (09:33)
[2022-05-20 09:37] VITALS: PULSE 66
[2022-05-20] MEDS: 0.9% Saline Lock 10 ML Syringe IV (09:37)
[2022-05-20] MEDS: Metoprolol(XL)Succ 100 MG Tablet PO (09:37)
[2022-05-20] MEDS: Gabapentin 300 MG Capsule PO ×3 (09:37→17:02)
--- NOTE | 2022-05-20 12:42 | NURSING ---
Wound vac did not have any drainage out of it so the wound vac was removed today. Clean dry dressing with abd pads applied to incision and dennis hose put back in place.
[2022-05-20 15:00] VITALS: BP 117/71; PULSE 66; RESP 17; TEMP 37.2; O2SAT 98
[2022-05-20] MEDS: Pramipexole Di-HCl 0.5 MG Tablet PO (17:02)
[2022-05-20 20:40] VITALS: BP 143/79; PULSE 66; RESP 16; TEMP 36.8; O2SAT 94
[2022-05-20] MEDS: MELATONIN 10 MG TABLET PO (21:16)
[2022-05-21] VITALS (7 sets, daily range): BP systolic 109–122; BP diastolic 74–99; PULSE 74–79; RESP 16–18; TEMP 36.6–36.8; O2SAT 93–96
[2022-05-21] MEDS: oxyCODONE 5 MG Tablet PO ×4 (04:01→18:03)
[2022-05-21] MEDS: Acetaminophen 500 MG Tablet 1000 MG PO ×2 (05:44→14:30)
[2022-05-21] MEDS: Rivaroxaban 10 MG Tablet PO (05:44)
[2022-05-21] MEDS: Multivitamins,Ther W-Minerals Tablet 1 TABLET PO (08:59)
[2022-05-21] MEDS: Cyanocobalamin 500 MCG Tablet 1000 MCG PO (08:59)
[2022-05-21] MEDS: Sertraline 100 MG Tablet PO (08:59)
[2022-05-21] MEDS: Pantoprazole Sodium 40 MG Tablet PO (09:00)
[2022-05-21] MEDS: Magnesium Chloride 64 MG Delay Rel.Tablet PO (09:00)
[2022-05-21] MEDS: amLODIPine 2.5 MG Tablet PO (09:00)
[2022-05-21] MEDS: Metoprolol(XL)Succ 100 MG Tablet PO (09:00)
[2022-05-21] MEDS: Calcium Carb/Vitamin D 1 TABLET Tablet PO (09:00)
[2022-05-21] MEDS: Famotidine 20 MG Tablet PO (09:01)
[2022-05-21] MEDS: Senna/Docusate Sodium 1 Tablet 2 TABLET PO (09:01)
[2022-05-21] MEDS: Cholecalciferol (VIT D3) 25 MCG TABLET (1,000 UNITS) PO (09:01)
[2022-05-21] MEDS: Gabapentin 300 MG Capsule PO ×3 (09:04→18:04)
[2022-05-21] MEDS: 0.9% Saline Lock 10 ML Syringe IV (09:05)
--- NOTE | 2022-05-21 09:11 | WOUNDNOTE ---
wound photo: left knee
--- NOTE | 2022-05-21 10:42 | PCM.PN.HOSP ---
Subjective Subjective Patient is a 77-year-old lady admitted with infected left total knee arthroplasty. Patient underwent placement of an antibiotic spacer per Dr. Loredo. Plan is for patient to be transferred to a shelter facility for long-term antibiotic therapy Objective Data Objective Data Vital Signs: Vital Signs Temp Pulse Resp BP Pulse Ox O2 Del Method O2 Flow Rate 98.3 F 74 18 122/90 H 96 Room Air 2 05/21/22 09:55 05/21/22 09:55 05/21/22 09:55 05/21/22 09:55 05/21/22 09:55 05/21/22 09:55 05/20/22 20:40 Oxygen Flow Rate (L/min) 2 Oxygen Delivery Method Room Air Weight: 97 kg Body Mass Index (BMI) 39.1 Intake & Output: Intake and Output for Last 24 Hours 05/19/22 05/20/22 05/21/22 23:59 23:59 23:59 Intake Total 50 / 50 50 / 50 50 / 50 Balance 50 / 50 50 / 50 50 / 50 Lab / Micro Data Result Diagrams: 05/19/22 07:08 05/19/22 07:08 Micro: Microbiology 05/17/22 13:56 Nasal Secretion SARS-CoV-2 Antigen (Rapid) - Final SARS-CoV-2 (COVID 19) 05/10/22 14:19 Tissue - Knee Gram Stain - Final 05/10/22 14:19 Tissue - Knee Wound Culture - Preliminary Staphylococcus hominis hominis 05/10/22 14:19 Tissue - Knee Anaerobic Culture - Final No growth in 5 days. 05/10/22 14:12 Tissue - Knee Gram Stain - Final 05/10/22 14:12 Tissue - Knee Wound Culture - Preliminary No growth-Final to follow 05/10/22 14:12 Tissue - Knee Anaerobic Culture - Final No growth in 5 days. 05/10/22 14:24 Tissue - Knee Gram Stain - Final 05/10/22 14:24 Tissue - Knee Wound Culture - Preliminary No growth-Final to follow 05/10/22 14:24 Tissue - Knee Anaerobic Culture - Final No growth in 5 days. 04/27/22 11:14 Swab (Method) Nasal Screen MRSA/MSSA - Final Physical Exam Narrative GENERAL: cooperative HEENT: Atraumatic; normocephalic EYES; Anicteric, Normal Conjunctiva NECK; supple, normal thyroid, RESPIRATORY: Diminished to auscultation CARDIOVASCULAR: Regular S1 S2, GI: soft, normoactive bowel sounds, : No Renal angle tenderness; EXTREMITIES: No edema, no clubbing, MUSCULOSKELETAL: no muscle wasting NEURO: Awake; no lateralizing signs. SKIN: No Rash PSYCH; Flat affect Assessment & Plan Assessment/Plan (1) Debility: (2) Infected prosthetic knee joint: QUALIFIERS: Encounter type: subsequent encounter Qualified Code(s): T84.59XD - Infection and inflammatory reaction due to other internal joint prosthesis, subsequent encounter; Z96.659 - Presence of unspecified artificial knee joint (3) History of removal of joint prosthesis of knee due to infection: (4) Blood loss anemia: (5) Lab test positive for detection of COVID-19 virus: PLAN: Plan Patient is a 77-year-old lady admitted with infected left total knee arthroplasty. Patient underwent placement of an antibiotic spacer per Dr. Loredo. Plan is for patient to be transferred to a shelter facility for long-term antibiotic therapy 1. Infected left prosthetic knee ? Cultures came back positive for staph hominis. Patient underwent spacer placement by Dr. Loredo on 05/10/2022. Plan is for patient to be discharged to a shelter facility with IV Rocephin with a stop date of 06/21/2022 2. Hypertension - Blood pressure controlled, home medications continued with dose adjustment as needed 3. Class II obesity with BMI of 39.1 ? Weight loss advised 4. GERD ? Patient is on PPI 5. Depression with anxiety ? Patient is on SSRI 6.? Restless leg syndrome on nightly pramipexole regimen. 7. DVT prophylaxis Patient is on rivaroxaban Charges/Coding Visit Charges Inpatient E&M: 75806 Subs Hosp L2
--- NOTE | 2022-05-21 13:32 | CASEMGMT ---
Social Work Yudith from [facility] informed SW that precert has been obtained. Yudith stated negative Covid test is needed. SW informed pt and that precert has been obtained. Charge Nurse Madison put in order for PCR covid test. Dr. Armstrong to discharge if test is negative. ASAD Mitchell
[2022-05-21] MEDS: Pramipexole Di-HCl 0.5 MG Tablet PO (18:04)
--- NOTE | 2022-05-21 19:35 | NURSING ---
Report called to [facility] on TCU.
--- NOTE | 2022-05-22 13:20 | PCM.DC.SUM ---
Providers Date of Admission: 05/10/22 Date of Discharge: 05/21/22 Primary Care Physician: Dr. Cheryl Russell, Consultations 05/10/22 15:47 Consult: Infectious Disease Routine Consulting Provider: Obed Harry Reason for Consult: l tka pji EMERGENT Consult: No Notified: Yes Date Notified: 05/10/22 Time Notified: 15:48 Method of Notification: Answering Service 05/10/22 15:48 Consult: Hospitalist Routine Consulting Provider: Jaclyn Anguiano Reason for Consult: post op med management EMERGENT Consult: No Notified: Yes Date Notified: 05/10/22 Time Notified: 15:48 Method of Notification: Verbal 05/14/22 06:52 Consult: Onc/Wound/regional director of finance Routine Comment: Reason for Consult:: Post-op draining wound left knee Comments:: Pravena incisional wound vac Reason For Visit: LT TOTAL KNEE REVISION Diagnosis Discharge Diagnosis (1) Debility: Status: Acute Code(s): R53.81 - Other malaise (2) Infected prosthetic knee joint: Status: Acute Code(s): T84.59XA - Infection and inflammatory reaction due to other internal joint prosthesis, initial encounter; Z96.659 - Presence of unspecified artificial knee joint Qualifiers: Encounter type: subsequent encounter Qualified Code(s): T84.59XD - Infection and inflammatory reaction due to other internal joint prosthesis, subsequent encounter; Z96.659 - Presence of unspecified artificial knee joint (3) History of removal of joint prosthesis of knee due to infection: Status: Acute Code(s): Z98.890 - Other specified postprocedural states; Z86.19 - Personal history of other infectious and parasitic diseases (4) Blood loss anemia: Status: Acute Code(s): D50.0 - Iron deficiency anemia secondary to blood loss (chronic) (5) Lab test positive for detection of COVID-19 virus: Status: Acute Code(s): U07.1 - COVID-19 Plan Patient is a 77-year-old lady admitted with infected left total knee arthroplasty. Patient underwent placement of an antibiotic spacer per Dr. Loredo. Plan is for patient to be transferred to a residential facility for long-term antibiotic therapy 1. Infected left prosthetic knee ? Cultures came back positive for staph hominis. Patient underwent spacer placement by Dr. Loredo on 05/10/2022. Plan is for patient to be discharged to a residential facility with IV Rocephin with a stop date of 06/21/2022 2. Hypertension - Blood pressure controlled, home medications continued with dose adjustment as needed 3. Class II obesity with BMI of 39.1 ? Weight loss advised 4. GERD ? Patient is on PPI 5. Depression with anxiety ? Patient is on SSRI 6.? Restless leg syndrome on nightly pramipexole regimen. 7. DVT prophylaxis Patient is on rivaroxaban Medications at Discharge Home Medications amlodipine 2.5 mg tablet 2.5 mg PO DAILY Heart 08/04/19 calcium carbonate-vitamin D3 600 mg-125 unit tablet 1 tab PO 0800 Supplement 08/04/19 cyanocobalamin (vitamin B-12) 500 mcg tablet 1,000 mcg PO DAILY@0800 supplement 08/04/19 hydrochlorothiazide 25 mg tablet 25 mg PO DAILY Heart 08/04/19 melatonin 5 mg tablet 10 mg PO QHS PRN Sleep 08/04/19 multivitamin with minerals 1 tab PO DAILY supplement 08/04/19 omeprazole 40 mg capsule,delayed release 40 mg PO DAILY GERD 08/04/19 sertraline 100 mg tablet 100 mg PO DAILY depression 08/04/19 acetaminophen 500 mg tablet 1,000 mg PO Q8H PRN Pain 06/06/21 gabapentin 300 mg capsule 300 mg PO TIDCM pain 10/26/21 magnesium chloride 64 mg (magnesium chloride) tablet,delayed release (Mag 64) 64 mg PO DAILY supplement 10/26/21 cholecalciferol (vitamin D3) 25 mcg (1,000 unit) tablet 25 mcg PO DAILY SUPPLEMENT 01/26/22 metoprolol succinate 50 mg tablet,extended release 24 hr 100 mg PO DAILY HEART 01/26/22 pramipexole 0.5 mg tablet 1 mg PO QHS RLS 01/26/22 meloxicam 7.5 mg tablet 7.5 mg PO BID PAIN 04/27/22 aspirin 81 mg tablet,delayed release 81 mg PO BID Check with primary doctor 05/10/22 oxycodone 5 mg tablet 5 - 10 mg PO Q4H PRN PRN Pain Score 4-10 5 days #30 tabs 05/14/22 ceftriaxone 2 gram intravenous solution 2 g IV DAILY infection 05/21/22 rivaroxaban 10 mg tablet (Xarelto) 10 mg PO DAILY@0600 Prophylactic for blood clots 05/21/22 sennosides 8.6 mg-docusate sodium 50 mg tablet (Stool Softener-Stimulant Laxative) 2 tab PO BID Constipation 05/21/22 Hospital Course Summary of Care Provided Minutes Spent on Discharge: 35 Physical Exam Narrative GENERAL: cooperative HEENT: Atraumatic; normocephalic EYES; Anicteric, Normal Conjunctiva NECK; supple, normal thyroid, RESPIRATORY: Diminished to auscultation CARDIOVASCULAR: Regular S1 S2, GI: soft, normoactive bowel sounds, : No Renal angle tenderness; EXTREMITIES: No edema, no clubbing, MUSCULOSKELETAL: no muscle wasting NEURO: Awake; no lateralizing signs. SKIN: No Rash PSYCH; Flat affect Weight / BMI Weight Weight: 97 kg Body Mass Index (BMI) 39.1 ABG / Lab / Microbiology Data Result Diagrams: 05/19/22 07:08 05/19/22 07:08 Laboratory: Laboratory Results - last 24 hr 05/21/22 14:34: COVID-19 (KEM) Not Detected Microbiology: Microbiology 05/17/22 13:56 Nasal Secretion SARS-CoV-2 Antigen (Rapid) - Final SARS-CoV-2 (COVID 19) 05/10/22 14:19 Tissue - Knee Gram Stain - Final 05/10/22 14:19 Tissue - Knee Wound Culture - Preliminary Staphylococcus hominis hominis 05/10/22 14:19 Tissue - Knee Anaerobic Culture - Final No growth in 5 days. 05/10/22 14:12 Tissue - Knee Gram Stain - Final 05/10/22 14:12 Tissue - Knee Wound Culture - Preliminary No growth-Final to follow 05/10/22 14:12 Tissue - Knee Anaerobic Culture - Final No growth in 5 days. 05/10/22 14:24 Tissue - Knee Gram Stain - Final 05/10/22 14:24 Tissue - Knee Wound Culture - Preliminary No growth-Final to follow 05/10/22 14:24 Tissue - Knee Anaerobic Culture - Final No growth in 5 days. 04/27/22 11:14 Swab (Method) Nasal Screen MRSA/MSSA - Final D/C Instructions Discharge Diet: No restrictions Discharge Activity: Return to Normal Activity Call your doctor if you observe: Fever of 101 or Higher, Shortness of breath, Fainting spells and Chest pain Meaningful Use Info Meaningful Use Diagnoses (Choose all that apply): None applicable Discharge Plan Admission Admit Date/Time: 05/10/22 11:01 Attending Provider: Prashant Armstrong Primary Care Provider: Cheryl Russell Consulting Providers: Lewis Morales ; Obed Harry ; Sri Mcpherson ; Cliff Gill ; Malcom Loredo ; Alessandro Floyd Discharge Orders/Prescriptions Prescriptions: New oxycodone 5 mg Tablet 5 - 10 mg PO Q4H PRN PRN (Reason: Pain Score 4-10) 5 Days Qty: 30 0RF Continued sertraline 100 MG tablet 100 mg PO DAILY amlodipine 2.5 MG tablet 2.5 mg PO DAILY omeprazole 40 MG capsule,delayed release(DR/EC) 40 mg PO DAILY cyanocobalamin (vitamin B-12) 500 MCG tablet 1,000 mcg PO DAILY@0800 hydrochlorothiazide 25 MG tablet 25 mg PO DAILY multivitamin with minerals 1 EACH tablet 1 tab PO DAILY calcium carbonate-vitamin D3 1 EACH tablet 1 tab PO 0800 melatonin 5 MG tablet 10 mg PO QHS PRN (Reason: Sleep) acetaminophen 500 MG tablet 1,000 mg PO Q8H PRN (Reason: Pain) gabapentin 300 mg capsule 300 mg PO TIDCM Mag 64 64 mg tablet,delayed release (DR/EC) 64 mg PO DAILY metoprolol succinate 50 mg tablet extended release 24 hr 100 mg PO DAILY pramipexole 0.5 mg tablet 1 mg PO QHS cholecalciferol (vitamin D3) 25 mcg (1,000 unit) Tablet 25 mcg PO DAILY meloxicam 7.5 mg Tablet 7.5 mg PO BID aspirin 81 mg Tablet,Delayed Release (Dr/Ec) 81 mg PO BID Rx Instructions: Begin 05/25/22, after stopping Xarelto on 05/24/22. Take for 2 weeks. Discontinued tramadol 50 mg Tablet 50 mg PO Q6H PRN PRN (Reason: Pain Score 1-5) 3 Days Qty: 12 0RF No Action ceftriaxone 2 gram recon soln 2 g IV DAILY Rx Instructions: stop date 06/21/22 dx: knee PJI weekly bmp, cbc, ESR, and vanc trough. Fax to [phone] routine picc care sennosides-docusate sodium [Stool Softener-Stimulant Laxat] 8.6-50 mg tablet 2 tab PO BID Rx Instructions: Take until first bowel movement, then as needed Xarelto 10 mg tablet 10 mg PO DAILY@0600 Rx Instructions: Continue and stop Xarelto on May 24, 2022. After stopping Xarelto continue with aspirin 81 mg twice daily for an additional 2 weeks Referrals / Follow Up: Cheryl Russell DO [Primary Care Provider] - Lewis Morales PA-C [Med Staff - Adv Practice Prof] - 05/23/22 2:45 pm Disposition Disposition (needs filled in before D/C Order can be placed): [facility] Facility Charges/Coding Visit Charges Inpatient E&M: 76446 Disch Hosp
== END 2022-05-21 19:55 | DRG 467 ==
LOC: ACINP 11:04 → MS3 05-11 08:37
PROVIDERS: Anesthesiology; Internal Medicine; Admitting Provider Specialist; PCP Internal Medicine; Visit Provider Internal Medicine
PROC: 0SPD0JZ Removal of Synthetic Substitute from Left Knee Joint, Open Approach (ICD-10-PCS; CPT 27488; principal; 2022-05-10 13:05)
DX: T84.54XA Infection and inflammatory reaction due to internal left knee prosthesis, initial encounter (principal); D62 Acute posthemorrhagic anemia; E78.5 Hyperlipidemia, unspecified; M19.90 Unspecified osteoarthritis, unspecified site; K21.9 Gastro-esophageal reflux disease without esophagitis; I10 Essential (primary) hypertension; G25.81 Restless legs syndrome; F41.9 Anxiety disorder, unspecified; E86.0 Dehydration; Z87.891 Personal history of nicotine dependence; Z96.652 Presence of left artificial knee joint; Z79.2 Long term (current) use of antibiotics; R09.02 Hypoxemia; R53.81 Other malaise; F32.A Depression, unspecified; E66.9 Obesity, unspecified; Z68.39 Body mass index [BMI] 39.0-39.9, adult; Z86.19 Personal history of other infectious and parasitic diseases
CPT/HCPCS: 36415; 36569; 73560; 80048; 80202; 82040; 82962; 83036; 83735; 85025; 85027; 87015; 87070; 87075; 87077; 87081; 87102; 87116; 87176; 87186; 87205; 87206; 87426; 87635; 97110; 97116; 97162; 97166; 97530; 97535; 99251; C1776; J7040; J7050; J7120; A4216; G0463; J0696; J2405; J3260; J3475; U0003; U0005

== ENCOUNTER 2022-05-21 20:16 | Inpatient (IN) | payer MEDICARE, SELFPAY ==
[2022-05-21 20:28] VITALS: PULSE 71; RESP 16; O2SAT 93; BMI 42.3
[2022-05-21 20:42] VITALS: BP 128/71; PULSE 71; RESP 18; TEMP 36.6; O2SAT 96
--- NOTE | 2022-05-21 21:44 | HP.PCM_ITS ---
HPI - General General Date of Admission: 05/21/22 Date of Service: 05/22/22 Chief Complaint: Here for rehabilitation, intravenous antibiotics. HPI Narrative 05/10/2022 TOREY SUAREZ, is a 77 Female who presents with followin05/10/2022 Dr. Loredo performed left total knee explant with antibiotic spacer placement. 05/11/2022 Left knee pain controlled. Oxygen 2 liters per nasal cannula. Xarelto x 2 weeks, then aspirin 81mg twice daily x 2 weeks for DVT prophylaxis. 05/11/2022 Stop HCTZ secondary to dehydration. Replace potassium. 05/11/2022 Dr. Harry recommended 6 weeks IV Vancomycin/Ceftriaxone via PICC line thru 06/21/2022. 05/13/2022 Feels well. Surgical culture growing staph species. 05/14/2022 Dr. Harry cultures growing coagulase negative staph. Stop Vancomycin, continue Ceftriaxone IV thru 06/21/2022. 05/14/2022 Calf cramps overnight. Hemoglobin 9.1, no transfusion needed. Wound VAC applied thru 05/19/2022. 05/17/2022 Rapid covid19 positive. 05/18/2022 Rapid covid19 positive, covid19 PCR negative, repeat PCR, if negative, discharge to TCU. 05/19/2022 Rapid covid19 positive, covid19 PCR negative x 2. 05/21/2022 Surgical culture grew staph hominis. 05/21/2022 Admit to TCU with debility, here for rehabilitation, strenghening, intravenous antibiotics, prior to discharge home alone. [facility] Medical History Arthritis Bladder disease Bruising Closed fracture of right patella Former smoker Gastric reflux History of echocardiogram History of hiatal hernia Hypertension Leg cramps Restless legs Vitamin D deficiency Walker as ambulation aid Wears dentures Wears glasses Home Medications amlodipine 2.5 mg tablet 2.5 mg PO DAILY Heart 08/04/19 [History Last Taken 01/30/22 08:45] calcium carbonate-vitamin D3 600 mg-125 unit tablet 1 tab PO 0800 Supplement 08/04/19 [History Last Taken 01/30/22 08:45] cyanocobalamin (vitamin B-12) 500 mcg tablet 1,000 mcg PO DAILY@0800 supplement 08/04/19 [History Last Taken 01/30/22 08:45] hydrochlorothiazide 25 mg tablet 25 mg PO DAILY Heart 08/04/19 [History Last Taken 01/30/22 08:45] melatonin 5 mg tablet 10 mg PO QHS PRN Sleep 08/04/19 [History Last Taken 01/29/22 23:40] multivitamin with minerals 1 tab PO DAILY supplement 08/04/19 [History Last Taken 01/30/22 08:45] omeprazole 40 mg capsule,delayed release 40 mg PO DAILY GERD 08/04/19 [History Last Taken 01/30/22 08:45] sertraline 100 mg tablet 100 mg PO DAILY depression 08/04/19 [History Last Taken 01/30/22 08:45] acetaminophen 500 mg tablet 1,000 mg PO Q8H PRN Pain 06/06/21 [History Last Taken 01/29/22 23:35] gabapentin 300 mg capsule 300 mg PO TIDCM pain 10/26/21 [History Last Taken 01/30/22 08:50] magnesium chloride 64 mg (magnesium chloride) tablet,delayed release (Mag 64) 64 mg PO DAILY supplement 10/26/21 [History Last Taken 01/30/22 08:45] cholecalciferol (vitamin D3) 25 mcg (1,000 unit) tablet 25 mcg PO DAILY SUPPLEMENT 01/26/22 [History Last Taken 01/30/22 08:45] metoprolol succinate 50 mg tablet,extended release 24 hr 100 mg PO DAILY HEART 01/26/22 [History Last Taken 01/30/22 08:50] pramipexole 0.5 mg tablet 1 mg PO QHS RLS 01/26/22 [History Last Taken 01/29/22 21:05] meloxicam 7.5 mg tablet 7.5 mg PO BID PAIN 04/27/22 [History Last Taken Unknown] aspirin 81 mg tablet,delayed release 81 mg PO BID Check with primary doctor 05/10/22 [History Last Taken Unknown] oxycodone 5 mg tablet 5 - 10 mg PO Q4H PRN PRN Pain Score 4-10 5 days #30 tabs 05/14/22 [Rx Last Taken Unknown] ceftriaxone 2 gram intravenous solution 2 g IV DAILY infection 05/21/22 [History Last Taken Unknown] rivaroxaban 10 mg tablet (Xarelto) 10 mg PO DAILY@0600 Prophylactic for blood clots 05/21/22 [History Last Taken Unknown] sennosides 8.6 mg-docusate sodium 50 mg tablet (Stool Softener-Stimulant Laxative) 2 tab PO BID Constipation 05/21/22 [History Last Taken Unknown] Allergy/AdvReac Type Severity Reaction Status Date / Time No Known Allergies Allergy Verified 05/10/22 11:27 Family History Father Hypertension Brother Cancer Anemia Surgical History History of back surgery History of eye surgery History of hysterectomy History of laparoscopic cholecystectomy History of repair of rectocele History of total left knee replacement History of total right knee replacement History of tubal ligation Status post total left knee replacement not using cement Social History household members: none Smoking Status: Former smoker alcohol intake: never substance use type: does not use ROS Constitutional Constitutional: Denies chills, fever(s) or weight gain ENT HEENT: Denies headache(s), nasal congestion or nasal discharge Cardiovascular Cardiovascular: Denies chest pain or palpitations Respiratory/Chest Respiratory/Chest: Denies cough, excessive phlegm production or shortness of breath with exertion Gastrointestinal Gastrointestinal: Denies abdominal pain, nausea or vomiting Genitourinary Genitourinary: Denies dysuria Musculoskeletal Musculoskeletal: Denies joint pain or joint swelling Integumentary Integumentary: Denies rash or wounds Neurologic Neurologic: Denies focal weakness, numbness or tingling Psychiatric Psychiatric: Denies anxiety, auditory hallucinations, depression, homicidal ideation or suicidal ideation Vital Signs Vital Signs Vital Signs: 05/21/22 20:42 Temperature 97.8 F Temperature Source Temporal Pulse Rate 71 Respiratory Rate 18 Blood Pressure 128/71 H Blood Pressure Mean 90 Blood Pressure Source Monitor Blood Pressure Position Semi-Fowlers Blood Pressure Location Left Arm Pulse Ox 96 Oxygen Delivery Method Room Air Weight Weight: 104.8 kg Body Mass Index (BMI) 42.3 Physical Exam Const alert General Appearance: cooperative HEENT normocephalic Eyes PERRL and EOMs intact bilaterally Neck supple, no JVD and no carotid bruits Resp normal respiratory effort, normal air movement and clear to auscultation bilaterally Cardio regular rate and regular rhythm GI normal to inspection, nondistended, normoactive bowel sounds, non-tender and non-distended Extremity normal capillary refill Extremity Narrative: Right upper extremity PICC. General Extremity: Negative for edema Skin no rashes or lesions noted General Skin Exam: no breakdown Psych affect normal Appearance: appropriate Results Lab / Micro Data Result Diagrams: 05/22/22 05:13 05/22/22 05:13 Assessment & Plan Assessment/Plan (1) Debility: (2) Infection of prosthetic left knee joint: (3) Postoperative anemia: (4) Lab test positive for detection of COVID-19 virus: (5) Dehydration: (6) Hypertension: (7) Vitamin B12 deficiency: (8) Neuropathic pain: (9) Hypomagnesemia: (10) Insomnia: (11) GERD (gastroesophageal reflux disease): (12) Restless leg syndrome: (13) Depression: (14) Vitamin D deficiency: PLAN: Plan 77 year old female with below past medical history hospitalized for left prosthetic knee infection, status post left prosthetic knee explant with antibiotic spacer placement 05/10/[address] Loredo, complicated by postoperative anemia, dehydration, false positive covid19 test, admitted to TCU with debility, here for rehabilitation, strengthening, intravenous antibiotics, prior to discharge home alone. * Debility - PT/OT. * Pain - Tylenol 1000mg q8, Oxycodone 5-10mg q4h prn. * Bowel - Miralax 17gm daily, senna/colace 2 tablets bid. * Adult immunization - Administer pneumonia vaccine, covid19 vaccine, flu vaccine as appropriate. * DVT prophylaxis - Xarelto 10mg thru 05/24/2022, then aspirin 81mg bid thru 06/07/2022. * Hypertension - Metoprolol succinate 100mg daily, Amlodipine 2.5mg daily, HCTZ 25mg daily. * Calcium deficiency - Calcium D 1 tablet daily. * Left prosthetic knee infection s/p explant/antibiotic spacer - Ceftriaxone 2gm iv q24 thru 06/21/2022. * Vitamin B12 deficiency - B12 1000mcg daily. * Neuropathic pain - Gabapentin 300mg tidcm. * Hypomagnesemia - Magnesium chloride 64mg daily. * Insomnia - Melatonin 10mg qhs prn. * Osteoarthritis - Meloxicam 7.5mg bid. * Nutrition - MVI daily. * Restless leg syndrome - Mirapex 1mg qpm. * Depression - Sertraline 100mg daily, stable chronic ferry terminal supervisor use, GDR not recommended. * Vitamin D deficiency - Vitamin D3 25mcg daily.
[2022-05-21] MEDS: Pramipexole Di-HCl 1 MG Tablet PO (22:43)
[2022-05-21] MEDS: MELATONIN 10 MG TABLET PO (22:47)
[2022-05-21] MEDS: oxyCODONE 5 MG Tablet PO (22:47)
[2022-05-22] MEDS: Meloxicam 7.5 MG Tablet PO ×2 (05:00→17:26)
[2022-05-22] MEDS: Cholecalciferol (VIT D3) 25 MCG TABLET (1,000 UNITS) PO (05:00)
[2022-05-22] MEDS: Pantoprazole Sodium 40 MG Tablet PO (05:00)
[2022-05-22] MEDS: amLODIPine 2.5 MG Tablet PO (05:01)
[2022-05-22] MEDS: Sertraline 100 MG Tablet PO (05:01)
[2022-05-22] MEDS: Senna/Docusate Sodium 1 Tablet 2 TABLET PO ×2 (05:01→17:26)
[2022-05-22] MEDS: Magnesium Chloride 64 MG Delay Rel.Tablet PO (05:01)
[2022-05-22] MEDS: hydroCHLOROthiazide 25 MG Tablet PO (05:01)
[2022-05-22 05:02] VITALS: BP 139/61; PULSE 76
[2022-05-22] MEDS: Acetaminophen 500 MG Tablet 1000 MG PO ×3 (05:02→21:53)
[2022-05-22] MEDS: Metoprolol(XL)Succ 100 MG Tablet PO (05:02)
[2022-05-22] MEDS: oxyCODONE 5 MG Tablet PO ×3 (05:03→21:52)
[2022-05-22] MEDS: Polyethylene Glycol 3350 17 GM PACKET PO (05:04)
[2022-05-22] MEDS: Rivaroxaban 10 MG Tablet PO (05:11)
[2022-05-22 05:46] LABS: Erythrocyte Sedimentation Rate 32 mm/hr (0-30)
[2022-05-22 05:48] LABS: Absolute Lymphocyte Count 1.05 X10^3/uL (0.83-4.51); Absolute Neutrophil Count 2.6 X10^3/uL (2.0-7.7); Basophil# 0.03 X10^3/uL; Basophil% 0.7 % (0-1); Eosinophils% 4.5 % (0-5); Hematocrit 30.6 % (37-47); Hemoglobin 9.4 g/dL (12.0-15.0); Lymphocyte # 1.05 X10^3/ul (0.83-4.51); Lymphocyte % 23.7 % (19-41); Mean Corp Hgb Conc 30.7 g/dL (32-36); Mean Corpuscular Hgb 26.9 pg (27.0-32.0); Mean Corpuscular Volume 87.4 fL (81-99); Mean Platelet Vol. 8.8 fl (6.2-12.0); Monocyte# 0.49 X10^3/uL; Monocyte% 11.1 % (0-10); NRBC Flagged by Analyzer 0 % (0-5); Neutrophil # 2.63 X10^3/uL (2.7-7.7); Neutrophil % 59.3 % (47-70); Platelet Count 150 K/mm3 (150-450); RBC Distribution Width CV 14.6 % (11.6-14.6); White Blood Count 4.4 K/mm3 (4.4-11.0)
[2022-05-22 06:04] LABS: Anion Gap 3 (5-15); BUN 11 mg/dL (7-18); BUN/Creat Ratio 19.3 RATIO (10-20); Calcium,Total 8.9 mg/dL (8.5-10.1); Chloride 100 mmol/L (98-107); Creatinine, Serum 0.57 mg/dL (0.55-1.02); EST Glomerular Filtration Rate 109 mL/min (>60); Est Glom Filt Rate - Afr Amer 132 mL/min (>60); Estimated Creatinine Clearance 37.26 ml/min; Glucose 93 mg/dL (74-106); Potassium 4.2 mmol/L (3.5-5.1); Sodium Level 135 mmol/L (136-145)
[2022-05-22] MEDS: Calcium Carb/Vitamin D 1 TABLET Tablet PO (07:58)
[2022-05-22] MEDS: Gabapentin 300 MG Capsule PO ×3 (07:58→17:23)
[2022-05-22] MEDS: Cyanocobalamin 500 MCG Tablet 1000 MCG PO (07:58)
[2022-05-22] MEDS: Multivitamins,Ther W-Minerals Tablet 1 TABLET PO (07:58)
[2022-05-22] MEDS: Tuberculin,Purif.prot.deriv. 50 TU/ML Vial 0.1 ML ID (09:20)
[2022-05-22] MEDS: 0.9% Saline Lock 10 ML Syringe IV (09:27)
[2022-05-22] MEDS: Menthol/Lanolin/Calamine/Znox 113 GM Tube 1 APPLIC TOPICAL ×2 (10:10→21:51)
--- NOTE | 2022-05-22 13:55 | NURSING ---
this nurse called office to see if it would be ok for pt to get a shower. no drainage to knee. per Bee from his office,stated that it would be ok for pt to take a shower. rn aware
--- NOTE | 2022-05-22 14:54 | CASEMGMT ---
Social Work Met with patient to complete initial assessment. Pt known to this worker from previous stay. Verified contacts. Confirmed no changes to code status or MOLST, DNR-CCA, no intubation. Educated to [facility] insurance with [employer]D 05/23 and continued stay is not guaranteed with each review. Pt is on IV ATB through 06/21/22. Pt lives at home alone and cannot/nor has family to administer. Pts goal is to return home at the end of IV ATB treatment at [facility]. SW to continue to follow for DC planning. Sophia Whittington, SUPERINTENDENT WAREHOUSE THERAPIST PHYSICAL
--- NOTE | 2022-05-22 15:18 | PHA.CONS_ITS ---
TCU RX Drug Regimen Review Subjective: TCU Admission. 77 YOF presented for L total knee explant with antibiotic spacer placement. Hospitalized for left prosthetic knee infection, status post left prosthetic knee explant with antibiotic spacer placement 05/10/[address] Loredo, complicated by postoperative anemia, dehydration, false positive covid19 test. Admitted to TCU with debility for IV antibiotics, strengthening and rehabilitation. Objective: Allergies No Known Allergies Allergy (Verified 05/10/22 11:27) Current Medications Generic Name Dose Route Start Last Admin Trade Name Cherelle PRN Reason Stop Dose Admin Acetaminophen 1,000 mg 05/22/22 06:00 05/22/22 13:27 Acetaminophen 500 Mg Tablet PO 1,000 mg Q8 JOSE Administration Amlodipine Besylate 2.5 mg 05/22/22 06:00 05/22/22 05:01 Amlodipine 2.5 Mg Tablet PO 2.5 mg DAILY JOSE Administration Aspirin 81 mg 05/25/22 08:00 Aspirin E.C. 81 Mg Tablet PO 06/07/22 17:01 BIDCM [facility] Calamine/Phenol 1 applic 05/22/22 10:00 05/22/22 10:10 Menthol/Lanolin/Calamine/Znox 113 Gm Tube TOPICAL 1 applic BID JOSE Administration Protocol Calcium/Vitamin D 1 tablet 05/22/22 08:00 05/22/22 07:58 Calcium Carb/Vitamin D 1 Tablet Tablet PO 1 tablet 0800 JOSE Administration Cholecalciferol 25 mcg 05/22/22 06:00 05/22/22 05:00 Cholecalciferol (Vit D3) 25 Mcg Tablet (1,000 Units) PO 25 mcg DAILY JOSE Administration Cyanocobalamin 1,000 mcg 05/22/22 08:00 05/22/22 07:58 Cyanocobalamin 500 Mcg Tablet PO 1,000 mcg DAILY@0800 JOSE Administration Gabapentin 300 mg 05/22/22 07:45 05/22/22 11:53 Gabapentin 300 Mg Capsule PO 300 mg TIDCM JOSE Administration Heparin Sodium (Beef Lung) 50 units 05/21/22 20:44 Heparin Pf Lock 10 Units/Ml 50 Units/5 Ml Syringe IV UD PRN PICC Line Heparin Flush Hydrochlorothiazide 25 mg 05/22/22 06:00 05/22/22 05:01 Hydrochlorothiazide 25 Mg Tablet PO 25 mg DAILY JOSE Administration Ceftriaxone Sodium 2 gm/ 50 mls @ 100 mls/hr 05/22/22 10:00 05/22/22 10:10 Sodium Chloride IV 06/21/22 10:01 Infused Q24 JOSE Infusion Sodium Chloride 250 mls @ 15 mls/hr 05/22/22 09:50 IV .[id number] PRN Saline Flush Sodium Chloride 250 mls @ 15 mls/hr 05/22/22 09:50 IV .[id number] PRN Additional IVPB Infusion Magnesium Chloride 64 mg 05/22/22 06:00 05/22/22 05:01 Magnesium Chloride 64 Mg Delay Rel.Tablet PO 64 mg DAILY JOSE Administration Melatonin 10 mg 05/21/22 21:29 05/21/22 22:47 Melatonin 10 Mg Tablet PO 10 mg QHS PRN Administration Sleep Meloxicam 7.5 mg 05/22/22 06:00 05/22/22 05:00 Meloxicam 7.5 Mg Tablet PO 7.5 mg BID JOSE Administration Metoprolol Succinate 100 mg 05/22/22 06:00 05/22/22 05:02 Metoprolol(Xl)Succ 100 Mg Tablet PO 100 mg DAILY JOSE Administration Multivitamins/Minerals 1 tablet 05/22/22 08:00 05/22/22 07:58 Multivitamins,Ther W-Minerals Tablet PO 1 tablet DAILYCM JOSE Administration Oxycodone HCl 5 - 10 mg 05/21/22 21:29 05/22/22 05:03 Oxycodone 5 Mg Tablet PO 10 mg Q4H PRN PRN Administration Pain Score 4-10 Pantoprazole Sodium 40 mg 05/22/22 06:00 05/22/22 05:00 Pantoprazole Sodium 40 Mg Tablet PO 40 mg DAILY JOSE Administration Polyethylene Glycol 17 gm 05/22/22 06:00 05/22/22 05:04 Polyethylene Glycol 3350 17 Gm Packet PO 17 gm DAILY JOSE Administration Pramipexole Dihydrochloride 1 mg 05/21/22 22:00 05/21/22 22:43 Pramipexole Di-Hcl 1 Mg Tablet PO 1 mg QHS JOSE Administration Rivaroxaban 10 mg 05/22/22 06:00 05/22/22 05:11 Rivaroxaban 10 Mg Tablet PO 05/24/22 06:01 10 mg DAILY@0600 JOSE Administration Senna/Docusate Sodium 2 tablet 05/22/22 06:00 05/22/22 05:01 Senna/Docusate Sodium 1 Tablet PO 2 tablet BID JOSE Administration Sertraline HCl 100 mg 05/22/22 06:00 05/22/22 05:01 Sertraline 100 Mg Tablet PO 100 mg DAILY JOSE Administration Sodium Chloride 10 - 40 ml 05/21/22 20:44 05/22/22 09:27 0.9% Saline Lock 10 Ml Syringe IV 20 ml UD PRN Administration Open End PICC Flush Sodium Chloride 10 - 40 ml 05/21/22 20:44 0.9 % Nacl (Sterile) Posiflush 10 Ml IV UD PRN Port access or dressing change Tuberculin PPD 0.1 ml 05/29/22 10:00 Tuberculin,Purif.Prot.Deriv. 50 Tu/Ml Vial ID 05/29/22 10:01 X1 ONE Problem List (Last Reviewed 05/22/22 @ 00:46 by Nicholas Nation) Vitamin D deficiency (Acute) Depression (Acute) Restless leg syndrome (Acute) GERD (gastroesophageal reflux disease) (Acute) Insomnia (Acute) Hypomagnesemia (Acute) Neuropathic pain (Acute) Vitamin B12 deficiency (Acute) Hypertension (Chronic) Postoperative anemia (Acute) Infection of prosthetic left knee joint (Acute) Debility (Acute) Lab test positive for detection of COVID-19 virus (Acute) Dehydration (Acute) Vital Signs Temp Pulse Resp BP Pulse Ox O2 Del Method 97.8 F 76 18 139/61 H 96 Room Air 05/21/22 20:42 05/22/22 05:02 05/21/22 20:42 05/22/22 05:02 05/21/22 20:42 05/21/22 20:42 Oxygen Delivery Method Room Air Weight: 104.8 kg Body Mass Index (BMI) 42.3 Sodium 135 mmol/L (136-145) L 05/22/22 05:13 Potassium 4.2 mmol/L (3.5-5.1) 05/22/22 05:13 Chloride 100 mmol/L (98-107) 05/22/22 05:13 Carbon Dioxide 32.0 mmol/L (21.0-32.0) 05/22/22 05:13 Anion Gap 3 (5-15) L 05/22/22 05:13 BUN 11 mg/dL (7-18) 05/22/22 05:13 Creatinine 0.57 mg/dL (0.55-1.02) 05/22/22 05:13 Est GFR (MDRD) Af Amer 132 mL/min (>60) 05/22/22 05:13 Est GFR (MDRD) Non-Af 109 mL/min (>60) 05/22/22 05:13 BUN/Creatinine Ratio 19.3 RATIO (10-20) 05/22/22 05:13 Glucose 93 mg/dL (74-106) 05/22/22 05:13 Assessment/Plan: 1. Pain: acetaminophen 1000mg PO Q8 and oxycodone 5-10mg PO Q4H PRN pain 4-10. Resident has used 2 doses of oxycodone for pain of 6 and 9 in the knee. Please continue to monitor for increased pain, PRN usage, constipation (last documented bowel movement 05/20) and respiratory depression. 2. Bowel: Miralax 17gm PO daily and senna/docusate 2T PO BID. Please continue to monitor for constipation and diarrhea. Last documented bowel movement 05/20. 3. DVT prophylaxis: rivaroxaban 10mg thru 05/24/22, then aspirin 81mg PO BIDCM 05/25-06/07. Please continue to monitor for S/S of bleeding and hemoglobin (last 9.4g/dL). 4. Left prosthetic knee infection: ceftriaxone 2gm IV daily thru 06/21/22. Please continue to monitor for S/S of infection and diarrhea. 5. Hypertension: metoprolol succinate 100mg PO daily, amlodipine 2.5mg PO daily and hydrochlorothiazide 25mg PO daily. Please continue to monitor HR (last 76), BP (last 139/61), swelling, sodium (last 135mg/dL), potassium (last 4.2mmol/L), and renal function. 6. Osteoarthritis: meloxicam 7.5mg PO BID. Please continue to monitor for increased pain, upset stomach and bleeding. 7. Restless leg syndrome: pramipexole 1mg PO QHS. Please continue to monitor for S/S of restless leg. 8. Insomnia: melatonin 10mg PO QHS PRN sleep. Resident has used 1 dose so far. Please continue to monitor for excessive drowsiness and PRN usage. 9. GERD (from PMH): pantoprazole 40mg PO daily. Please continue to monitor for S/S of GERD and diarrhea (BEERs criteria for increased risk of C. diff infection). 10. Calcium deficiency/hypomagnesemia: calcium/vitamin D 1T PO daily and magnesium chloride 64mg PO daily. Please continue to monitor calcium (last 8.9mg/dL), magnesium (last 2.2mg/dL) and vitamin D (last 01/27/22). 11. Vitamin B12/D deficiencies and overall nutrition: multivitamin with minerals 1T PO DAILYCM, cholecalciferol 25mcg PO daily and cyanocobalamin 1000mcg PO daily. Please consider ordering a vitamin B12 level if clinically appropriate. There is no vitamin B12 level in the chart. Thanks. Please continue to monitor vitamin D. Assessment/Plan for indications treated with psychotropic medications: 1. Depression: sertraline 100mg PO daily. Please see physician note regarding GDR. Please continue to monitor for suicidal ideation (black box warning), falls/fractures (BEERs criteria medication), and GI side effects. 2. Neuropathic pain: gabapentin 300mg PO TIDCM. Please continue to monitor for S/S of confusion and renal function. GDR not appropriate as this resident is using for neuropathic pain. Dose is appropriate for renal function at this time. Medical chart and medication regimen reviewed. The following medication irregularities or issues were identified: None Date of Note:: 05/22/22
[2022-05-22 16:00] VITALS: BP 114/64; PULSE 67; RESP 18; TEMP 37.2; O2SAT 93
[2022-05-22 21:43] VITALS: PULSE 76; RESP 18; O2SAT 90
[2022-05-22] MEDS: Pramipexole Di-HCl 1 MG Tablet PO (21:54)
[2022-05-23] MEDS: Nystatin Powder 15gm Bottle 1 APPLIC TOPICAL ×2 (06:02→17:42)
[2022-05-23] MEDS: Menthol/Lanolin/Calamine/Znox 113 GM Tube 1 APPLIC TOPICAL ×2 (06:02→17:42)
[2022-05-23] MEDS: Pantoprazole Sodium 40 MG Tablet PO (06:04)
[2022-05-23] MEDS: Senna/Docusate Sodium 1 Tablet 2 TABLET PO ×2 (06:04→17:42)
[2022-05-23] MEDS: Sertraline 100 MG Tablet PO (06:04)
[2022-05-23 06:05] VITALS: BP 156/86; PULSE 70
[2022-05-23] MEDS: amLODIPine 2.5 MG Tablet PO (06:05)
[2022-05-23] MEDS: Meloxicam 7.5 MG Tablet PO ×2 (06:05→17:42)
[2022-05-23] MEDS: Metoprolol(XL)Succ 100 MG Tablet PO (06:05)
[2022-05-23] MEDS: hydroCHLOROthiazide 25 MG Tablet PO (06:05)
[2022-05-23] MEDS: Acetaminophen 500 MG Tablet 1000 MG PO ×3 (06:06→20:46)
[2022-05-23] MEDS: Rivaroxaban 10 MG Tablet PO (06:06)
[2022-05-23] MEDS: oxyCODONE 5 MG Tablet PO ×3 (06:07→20:45)
[2022-05-23] MEDS: Polyethylene Glycol 3350 17 GM PACKET PO (06:08)
[2022-05-23] MEDS: Magnesium Chloride 64 MG Delay Rel.Tablet PO (06:08)
[2022-05-23] MEDS: Cholecalciferol (VIT D3) 25 MCG TABLET (1,000 UNITS) PO (06:08)
[2022-05-23] MEDS: Gabapentin 300 MG Capsule PO ×3 (07:59→17:41)
[2022-05-23] MEDS: Multivitamins,Ther W-Minerals Tablet 1 TABLET PO (08:00)
[2022-05-23] MEDS: Calcium Carb/Vitamin D 1 TABLET Tablet PO (08:00)
[2022-05-23] MEDS: Cyanocobalamin 500 MCG Tablet 1000 MCG PO (08:00)
[2022-05-23] MEDS: 0.9% Saline Lock 10 ML Syringe IV (09:45)
--- NOTE | 2022-05-23 13:27 | NURSING ---
Optical Design Engineer Note; Activity Asset: Complete
[2022-05-23 13:40] VITALS: BP 117/47; PULSE 69; RESP 16; TEMP 37; O2SAT 93
--- NOTE | 2022-05-23 14:30 | NURSING ---
Addendum entered by Safia Montelongo 05/23/22 18:08: Resident returned from appointment approx 5pm with N.O. for 50% wt bearing to LLE, immobilizer prn and when walking. Dr. Rankin aware of new orders Original Note: resident left for ortho appointment with friend.
[2022-05-23] MEDS: Pramipexole Di-HCl 1 MG Tablet PO (20:47)
[2022-05-24] MEDS: oxyCODONE 5 MG Tablet PO ×4 (01:18→20:53)
[2022-05-24] MEDS: Polyethylene Glycol 3350 17 GM PACKET PO (04:57)
[2022-05-24] MEDS: Cholecalciferol (VIT D3) 25 MCG TABLET (1,000 UNITS) PO (04:57)
[2022-05-24] MEDS: hydroCHLOROthiazide 25 MG Tablet PO (04:57)
[2022-05-24 04:58] VITALS: BP 152/73; PULSE 61
[2022-05-24] MEDS: Magnesium Chloride 64 MG Delay Rel.Tablet PO (04:58)
[2022-05-24] MEDS: Rivaroxaban 10 MG Tablet PO (04:58)
[2022-05-24] MEDS: Metoprolol(XL)Succ 100 MG Tablet PO (04:58)
[2022-05-24] MEDS: Acetaminophen 500 MG Tablet 1000 MG PO ×3 (04:58→20:55)
[2022-05-24] MEDS: Sertraline 100 MG Tablet PO (04:58)
[2022-05-24] MEDS: Pantoprazole Sodium 40 MG Tablet PO (04:58)
[2022-05-24] MEDS: Senna/Docusate Sodium 1 Tablet 2 TABLET PO ×2 (04:59→16:47)
[2022-05-24] MEDS: Menthol/Lanolin/Calamine/Znox 113 GM Tube 1 APPLIC TOPICAL ×2 (05:04→16:45)
[2022-05-24] MEDS: Nystatin Powder 15gm Bottle 1 APPLIC TOPICAL ×2 (05:04→16:46)
[2022-05-24 05:56] LABS: Hematocrit 29.9 % (37-47); Hemoglobin 9.6 g/dL (12.0-15.0)
[2022-05-24] MEDS: Cyanocobalamin 500 MCG Tablet 1000 MCG PO (07:50)
[2022-05-24] MEDS: amLODIPine 2.5 MG Tablet PO (07:50)
[2022-05-24] MEDS: Calcium Carb/Vitamin D 1 TABLET Tablet PO (07:50)
[2022-05-24] MEDS: Multivitamins,Ther W-Minerals Tablet 1 TABLET PO (07:50)
[2022-05-24] MEDS: Gabapentin 300 MG Capsule PO ×3 (07:51→16:45)
[2022-05-24] MEDS: Meloxicam 7.5 MG Tablet PO ×2 (07:51→16:45)
[2022-05-24] MEDS: 0.9% Saline Lock 10 ML Syringe IV (10:25)
[2022-05-24 13:33] VITALS: BP 137/77; PULSE 80; RESP 18; TEMP 36.3; O2SAT 93
--- NOTE | 2022-05-24 14:44 | CHAPLAIN ---
Type of Pastoral Visit _x__ Initial Visit ___ Follow-up Visit ___ On-call Visit ___ General Patient Visit ___ Spiritual Assessment ___ Family Conference ___ Bereavement ___ Rapid Response ___ Code Blue ___ Other (describe below) Pastoral Care Referral From _x__ Patient ___ Family ___ Nurse ___ Physician ___ Rate Analyst ___ Egg Packer ___ Other (describe below) Sacrament/Intervention _x__ Active listening ___ Anointing ___ Tenriism ___ Bereavement ___ Communion ___ Leti exploration ___ ___ Life review _x__ Prayer ___ Reconciliation ___ Sacrament of Sick _x_ Supportive presence ___ Wedding ___ Other (describe below) Pastoral Comments patient has been seen before in previous admissions; pt always welcomes spiritual care support; pt states her situation with antibiotics needed for knee; pt gives update on life; pt speaks briefly about her former baptist family; pt has a visitor that showed up; casual talk between the three of the group, offered a prayer, left so visitor could have time with pt
[2022-05-24] MEDS: Pramipexole Di-HCl 1 MG Tablet PO (20:55)
[2022-05-24 21:04] VITALS: PULSE 72; RESP 18; O2SAT 97
[2022-05-25] MEDS: Senna/Docusate Sodium 1 Tablet 2 TABLET PO ×2 (05:09→17:09)
[2022-05-25] MEDS: Acetaminophen 500 MG Tablet 1000 MG PO ×3 (05:09→21:14)
[2022-05-25 05:10] VITALS: BP 137/79; PULSE 66
[2022-05-25] MEDS: Sertraline 100 MG Tablet PO (05:10)
[2022-05-25] MEDS: Cholecalciferol (VIT D3) 25 MCG TABLET (1,000 UNITS) PO (05:10)
[2022-05-25] MEDS: Pantoprazole Sodium 40 MG Tablet PO (05:10)
[2022-05-25] MEDS: Metoprolol(XL)Succ 100 MG Tablet PO (05:10)
[2022-05-25] MEDS: hydroCHLOROthiazide 25 MG Tablet PO ×2 (05:10)
[2022-05-25] MEDS: Menthol/Lanolin/Calamine/Znox 113 GM Tube 1 APPLIC TOPICAL (05:11)
[2022-05-25] MEDS: Polyethylene Glycol 3350 17 GM PACKET PO (05:11)
[2022-05-25] MEDS: Magnesium Chloride 64 MG Delay Rel.Tablet PO (05:11)
[2022-05-25] MEDS: Nystatin Powder 15gm Bottle 1 APPLIC TOPICAL (05:11)
[2022-05-25] MEDS: oxyCODONE 5 MG Tablet PO ×4 (05:12→21:11)
[2022-05-25] MEDS: Aspirin E.C. 81 MG Tablet PO ×2 (08:04→17:08)
[2022-05-25] MEDS: Meloxicam 7.5 MG Tablet PO ×2 (08:04→17:09)
[2022-05-25] MEDS: Gabapentin 300 MG Capsule PO ×3 (08:04→17:08)
[2022-05-25] MEDS: Cyanocobalamin 500 MCG Tablet 1000 MCG PO (08:05)
[2022-05-25] MEDS: Calcium Carb/Vitamin D 1 TABLET Tablet PO (08:05)
[2022-05-25] MEDS: Multivitamins,Ther W-Minerals Tablet 1 TABLET PO (08:05)
[2022-05-25] MEDS: amLODIPine 2.5 MG Tablet PO (08:05)
[2022-05-25] MEDS: 0.9% Saline Lock 10 ML Syringe IV ×2 (10:41→21:20)
[2022-05-25 13:13] VITALS: BP 131/53; PULSE 73; RESP 18; TEMP 36.4; O2SAT 94
[2022-05-25 20:10] VITALS: O2SAT 94
[2022-05-25] MEDS: Pramipexole Di-HCl 1 MG Tablet PO (21:11)
[2022-05-25] MEDS: MELATONIN 10 MG TABLET PO (21:14)
[2022-05-26 05:55] LABS: Hematocrit 31.5 % (37-47); Hemoglobin 9.6 g/dL (12.0-15.0)
[2022-05-26] MEDS: Sertraline 100 MG Tablet PO (06:44)
[2022-05-26] MEDS: Acetaminophen 500 MG Tablet 1000 MG PO ×3 (06:44→21:42)
[2022-05-26 06:45] VITALS: BP 143/89; PULSE 77
[2022-05-26] MEDS: Magnesium Chloride 64 MG Delay Rel.Tablet PO (06:45)
[2022-05-26] MEDS: Cholecalciferol (VIT D3) 25 MCG TABLET (1,000 UNITS) PO (06:45)
[2022-05-26] MEDS: Pantoprazole Sodium 40 MG Tablet PO (06:45)
[2022-05-26] MEDS: Metoprolol(XL)Succ 100 MG Tablet PO (06:45)
[2022-05-26] MEDS: hydroCHLOROthiazide 25 MG Tablet PO (06:46)
[2022-05-26] MEDS: Senna/Docusate Sodium 1 Tablet 2 TABLET PO ×2 (06:47→16:49)
[2022-05-26] MEDS: oxyCODONE 5 MG Tablet PO ×3 (06:48→21:38)
--- NOTE | 2022-05-26 06:50 | NURSING ---
Pt reports she has been using Cetaphil loiton from home to buttocks instead of calmoseptine. Will report to oncoming nurse.
--- NOTE | 2022-05-26 07:01 | NURSING ---
Immobilizer placed to left knee.
[2022-05-26] MEDS: Gabapentin 300 MG Capsule PO ×3 (07:57→16:51)
[2022-05-26] MEDS: Aspirin E.C. 81 MG Tablet PO ×2 (08:00→16:49)
[2022-05-26] MEDS: Multivitamins,Ther W-Minerals Tablet 1 TABLET PO (08:06)
[2022-05-26] MEDS: Meloxicam 7.5 MG Tablet PO ×2 (08:06→16:49)
[2022-05-26] MEDS: amLODIPine 2.5 MG Tablet PO (08:07)
[2022-05-26] MEDS: Calcium Carb/Vitamin D 1 TABLET Tablet PO (08:07)
[2022-05-26] MEDS: Cyanocobalamin 500 MCG Tablet 1000 MCG PO (08:08)
[2022-05-26 08:10] VITALS: BP 155/87; PULSE 73
[2022-05-26] MEDS: 0.9% Saline Lock 10 ML Syringe IV (09:19)
[2022-05-26 16:00] VITALS: BP 134/66; PULSE 65; RESP 16; TEMP 36.9; O2SAT 93
[2022-05-26 20:32] VITALS: PULSE 68; RESP 16; O2SAT 95
[2022-05-26] MEDS: MELATONIN 10 MG TABLET PO (21:42)
[2022-05-26] MEDS: Pramipexole Di-HCl 1 MG Tablet PO (21:43)
[2022-05-27] MEDS: oxyCODONE 5 MG Tablet PO ×5 (02:12→22:03)
[2022-05-27] MEDS: Pantoprazole Sodium 40 MG Tablet PO (06:38)
[2022-05-27] MEDS: Acetaminophen 500 MG Tablet 1000 MG PO ×3 (06:38→22:01)
[2022-05-27] MEDS: Magnesium Chloride 64 MG Delay Rel.Tablet PO (06:39)
[2022-05-27] MEDS: hydroCHLOROthiazide 25 MG Tablet PO (06:39)
[2022-05-27] MEDS: Cholecalciferol (VIT D3) 25 MCG TABLET (1,000 UNITS) PO (06:40)
[2022-05-27] MEDS: Nystatin Powder 15gm Bottle 1 APPLIC TOPICAL (06:40)
[2022-05-27] MEDS: Sertraline 100 MG Tablet PO (06:40)
[2022-05-27] MEDS: Polyethylene Glycol 3350 17 GM PACKET PO (06:40)
[2022-05-27] MEDS: Senna/Docusate Sodium 1 Tablet 2 TABLET PO ×2 (06:40→17:20)
[2022-05-27 06:41] VITALS: BP 144/77; PULSE 72
[2022-05-27] MEDS: Metoprolol(XL)Succ 100 MG Tablet PO (06:41)
[2022-05-27] MEDS: Gabapentin 300 MG Capsule PO ×3 (08:09→17:18)
[2022-05-27] MEDS: Aspirin E.C. 81 MG Tablet PO ×2 (08:09→17:18)
[2022-05-27] MEDS: Multivitamins,Ther W-Minerals Tablet 1 TABLET PO (08:10)
[2022-05-27] MEDS: Cyanocobalamin 500 MCG Tablet 1000 MCG PO (08:10)
[2022-05-27] MEDS: Meloxicam 7.5 MG Tablet PO ×2 (08:10→17:18)
[2022-05-27] MEDS: Calcium Carb/Vitamin D 1 TABLET Tablet PO (08:10)
[2022-05-27] MEDS: amLODIPine 2.5 MG Tablet PO (08:13)
[2022-05-27 08:15] VITALS: BP 122/83; PULSE 70
[2022-05-27 09:30] VITALS: PULSE 63; RESP 18; O2SAT 94
[2022-05-27] MEDS: 0.9% Saline Lock 10 ML Syringe IV (09:38)
[2022-05-27 15:25] VITALS: BP 134/84; PULSE 120; RESP 18; TEMP 36.5; O2SAT 97
[2022-05-27] MEDS: Pramipexole Di-HCl 1 MG Tablet PO (22:00)
[2022-05-28] MEDS: Acetaminophen 500 MG Tablet 1000 MG PO ×3 (04:52→22:06)
[2022-05-28] MEDS: Senna/Docusate Sodium 1 Tablet 2 TABLET PO ×2 (04:52→16:26)
[2022-05-28] MEDS: oxyCODONE 5 MG Tablet PO ×4 (04:52→22:07)
[2022-05-28] MEDS: Cholecalciferol (VIT D3) 25 MCG TABLET (1,000 UNITS) PO (04:53)
[2022-05-28] MEDS: Pantoprazole Sodium 40 MG Tablet PO (04:53)
[2022-05-28] MEDS: Sertraline 100 MG Tablet PO (04:53)
[2022-05-28] MEDS: hydroCHLOROthiazide 25 MG Tablet PO (04:53)
[2022-05-28] MEDS: Magnesium Chloride 64 MG Delay Rel.Tablet PO (04:53)
[2022-05-28 04:54] VITALS: BP 140/75; PULSE 60
[2022-05-28] MEDS: Metoprolol(XL)Succ 100 MG Tablet PO (04:54)
[2022-05-28] MEDS: Multivitamins,Ther W-Minerals Tablet 1 TABLET PO (07:45)
[2022-05-28] MEDS: amLODIPine 2.5 MG Tablet PO (07:45)
[2022-05-28] MEDS: Calcium Carb/Vitamin D 1 TABLET Tablet PO (07:45)
[2022-05-28] MEDS: Meloxicam 7.5 MG Tablet PO ×2 (07:45→16:25)
[2022-05-28] MEDS: Gabapentin 300 MG Capsule PO ×3 (07:45→16:25)
[2022-05-28] MEDS: Aspirin E.C. 81 MG Tablet PO ×2 (07:45→16:25)
[2022-05-28] MEDS: Cyanocobalamin 500 MCG Tablet 1000 MCG PO (07:46)
--- NOTE | 2022-05-28 09:05 | NURSING ---
Weight Calculator Note: MDS complete
[2022-05-28] MEDS: 0.9% Saline Lock 10 ML Syringe IV (09:57)
--- NOTE | 2022-05-28 14:23 | NURSING ---
Resident educated on the COVID 19 Vaccine and she does not want to receive it at this time.
[2022-05-28 14:53] VITALS: BP 121/88; PULSE 66; RESP 18; TEMP 36.2; O2SAT 94
--- NOTE | 2022-05-28 15:03 | CASEMGMT ---
Social Work BIMS () and PHQ-9 (07/06) completed for MDS assessment. Sophia Whittington MSW COATER CARBON PAPER
[2022-05-28] MEDS: Pramipexole Di-HCl 1 MG Tablet PO (22:06)
[2022-05-28] MEDS: MELATONIN 10 MG TABLET PO (22:10)
[2022-05-29 05:49] LABS: Absolute Lymphocyte Count 1.13 X10^3/uL (0.83-4.51); Absolute Neutrophil Count 1.4 X10^3/uL (2.0-7.7); Basophil# 0.05 X10^3/uL; Basophil% 1.5 % (0-1); Eosinophil# 0.34 X10^3/uL; Hematocrit 31.6 % (37-47); Hemoglobin 9.9 g/dL (12.0-15.0); Lymphocyte # 1.13 X10^3/ul (0.83-4.51); Lymphocyte % 33.2 % (19-41); Mean Corp Hgb Conc 31.3 g/dL (32-36); Mean Corpuscular Hgb 26.8 pg (27.0-32.0); Mean Corpuscular Volume 85.4 fL (81-99); Mean Platelet Vol. 9.5 fl (6.2-12.0); Monocyte# 0.44 X10^3/uL; Monocyte% 12.9 % (0-10); NRBC Flagged by Analyzer 0 % (0-5); Neutrophil # 1.43 X10^3/uL (2.7-7.7); Neutrophil % 42.1 % (47-70); Platelet Count 126 K/mm3 (150-450); RBC Distribution Width CV 14.2 % (11.6-14.6); RBC Distribution Width SD 44.4 fl (35.1-43.9); White Blood Count 3.4 K/mm3 (4.4-11.0)
[2022-05-29 05:56] LABS: Erythrocyte Sedimentation Rate 26 mm/hr (0-30)
[2022-05-29] MEDS: Cholecalciferol (VIT D3) 25 MCG TABLET (1,000 UNITS) PO (06:00)
[2022-05-29] MEDS: Sertraline 100 MG Tablet PO (06:00)
[2022-05-29 06:01] VITALS: BP 121/65; PULSE 62
[2022-05-29] MEDS: hydroCHLOROthiazide 25 MG Tablet PO (06:01)
[2022-05-29] MEDS: Acetaminophen 500 MG Tablet 1000 MG PO ×3 (06:01→20:38)
[2022-05-29] MEDS: Senna/Docusate Sodium 1 Tablet 2 TABLET PO ×2 (06:01→17:34)
[2022-05-29] MEDS: Magnesium Chloride 64 MG Delay Rel.Tablet PO (06:01)
[2022-05-29] MEDS: Pantoprazole Sodium 40 MG Tablet PO (06:01)
[2022-05-29] MEDS: Metoprolol(XL)Succ 100 MG Tablet PO (06:01)
[2022-05-29] MEDS: oxyCODONE 5 MG Tablet PO ×3 (06:04→20:39)
[2022-05-29 06:07] LABS: Anion Gap 4 (5-15); BUN 14 mg/dL (7-18); BUN/Creat Ratio 26.7 RATIO (10-20); Chloride 98 mmol/L (98-107); Creatinine, Serum 0.52 mg/dL (0.55-1.02); EST Glomerular Filtration Rate 120 mL/min (>60); Est Glom Filt Rate - Afr Amer 145 mL/min (>60); Estimated Creatinine Clearance 37.26 ml/min; Glucose 94 mg/dL (74-106); Potassium 3.8 mmol/L (3.5-5.1); Sodium Level 134 mmol/L (136-145)
[2022-05-29] MEDS: Gabapentin 300 MG Capsule PO ×3 (08:12→17:34)
[2022-05-29] MEDS: Meloxicam 7.5 MG Tablet PO ×2 (08:12→17:34)
[2022-05-29] MEDS: Aspirin E.C. 81 MG Tablet PO ×2 (08:12→17:34)
[2022-05-29] MEDS: Calcium Carb/Vitamin D 1 TABLET Tablet PO (08:13)
[2022-05-29] MEDS: amLODIPine 2.5 MG Tablet PO (08:13)
[2022-05-29] MEDS: Cyanocobalamin 500 MCG Tablet 1000 MCG PO (08:13)
[2022-05-29] MEDS: Multivitamins,Ther W-Minerals Tablet 1 TABLET PO (08:13)
[2022-05-29] MEDS: Tuberculin,Purif.prot.deriv. 50 TU/ML Vial 0.1 ML ID (10:05)
[2022-05-29 13:54] VITALS: BP 113/78; PULSE 71; RESP 20; TEMP 36.2; O2SAT 93
--- NOTE | 2022-05-29 14:28 | MDS.RN ---
Information for the mds was obtained from review of the clinical record, interview of resident, staff, and direct observation of resident's care.
[2022-05-29] MEDS: Pramipexole Di-HCl 1 MG Tablet PO (17:35)
--- NOTE | 2022-05-29 17:38 | NURSING ---
changed mirapex time to 1800 per pt request. states 2200 too late and not working for bedtime.
[2022-05-29 22:00] VITALS: PULSE 69; RESP 16; O2SAT 97
[2022-05-30] MEDS: hydroCHLOROthiazide 25 MG Tablet PO (05:59)
[2022-05-30] MEDS: Magnesium Chloride 64 MG Delay Rel.Tablet PO (05:59)
[2022-05-30] MEDS: Pantoprazole Sodium 40 MG Tablet PO (05:59)
[2022-05-30] MEDS: Cholecalciferol (VIT D3) 25 MCG TABLET (1,000 UNITS) PO (06:00)
[2022-05-30] MEDS: Sertraline 100 MG Tablet PO (06:00)
[2022-05-30] MEDS: Acetaminophen 500 MG Tablet 1000 MG PO ×3 (06:00→22:46)
[2022-05-30] MEDS: oxyCODONE 5 MG Tablet PO ×3 (06:00→22:47)
[2022-05-30] MEDS: Senna/Docusate Sodium 1 Tablet 2 TABLET PO ×2 (06:00→17:12)
[2022-05-30 06:01] VITALS: BP 117/66; PULSE 78
[2022-05-30] MEDS: Metoprolol(XL)Succ 100 MG Tablet PO (06:01)
[2022-05-30] MEDS: Gabapentin 300 MG Capsule PO ×3 (07:59→17:16)
[2022-05-30] MEDS: Aspirin E.C. 81 MG Tablet PO ×2 (08:00→17:13)
[2022-05-30] MEDS: Calcium Carb/Vitamin D 1 TABLET Tablet PO (08:00)
[2022-05-30] MEDS: Meloxicam 7.5 MG Tablet PO ×2 (08:01→17:12)
[2022-05-30] MEDS: Cyanocobalamin 500 MCG Tablet 1000 MCG PO (08:01)
[2022-05-30] MEDS: Multivitamins,Ther W-Minerals Tablet 1 TABLET PO (08:01)
[2022-05-30] MEDS: amLODIPine 2.5 MG Tablet PO (08:01)
[2022-05-30 08:05] VITALS: BP 150/86; PULSE 75
--- NOTE | 2022-05-30 09:06 | CASEMGMT ---
Addendum entered by Sophia Whittington 06/06/22 08:51: Correction: typing error with dates - IV ATB through 06/21, with DC 06/22. Pt is unable to return home on IV ATB. SW to coordinate DC plans. Original Note: Social Work IDT met with patient for care plan meeting. Discussed patient's progress in PT/OT/SN. Educated to [employer] insurance with NRD 05/28 and have not received outcome yet. Continued stay is not guaranteed with each review. Pt remains on IV ATB through 05/21 and goal is to remain with DC 05/22. SW to coordinate any DC needs. Will continue to follow. Sophia Whittington, FAST FOOD SHIFT LEAD NITRIC ACID PLANT OPERATOR
[2022-05-30] MEDS: 0.9% Saline Lock 10 ML Syringe IV (09:22)
[2022-05-30 10:30] VITALS: PULSE 63; RESP 18; O2SAT 95
[2022-05-30 15:21] VITALS: BP 151/65; PULSE 73; RESP 16; TEMP 36.6; O2SAT 96
[2022-05-30] MEDS: Pramipexole Di-HCl 1 MG Tablet PO (17:14)
[2022-05-30] MEDS: MELATONIN 10 MG TABLET PO (22:53)
[2022-05-31] MEDS: Senna/Docusate Sodium 1 Tablet 2 TABLET PO (06:06)
[2022-05-31] MEDS: Acetaminophen 500 MG Tablet 1000 MG PO ×3 (06:07→19:51)
[2022-05-31] MEDS: Sertraline 100 MG Tablet PO (06:07)
[2022-05-31 06:08] VITALS: BP 137/64; PULSE 70
[2022-05-31] MEDS: hydroCHLOROthiazide 25 MG Tablet PO (06:08)
[2022-05-31] MEDS: Pantoprazole Sodium 40 MG Tablet PO (06:08)
[2022-05-31] MEDS: Cholecalciferol (VIT D3) 25 MCG TABLET (1,000 UNITS) PO (06:08)
[2022-05-31] MEDS: Magnesium Chloride 64 MG Delay Rel.Tablet PO (06:08)
[2022-05-31] MEDS: Metoprolol(XL)Succ 100 MG Tablet PO (06:08)
[2022-05-31] MEDS: oxyCODONE 5 MG Tablet PO ×3 (08:00→19:56)
[2022-05-31] MEDS: Gabapentin 300 MG Capsule PO ×3 (08:00→17:24)
[2022-05-31] MEDS: Calcium Carb/Vitamin D 1 TABLET Tablet PO (08:01)
[2022-05-31] MEDS: Cyanocobalamin 500 MCG Tablet 1000 MCG PO (08:01)
[2022-05-31] MEDS: Aspirin E.C. 81 MG Tablet PO ×2 (08:01→17:25)
[2022-05-31] MEDS: amLODIPine 2.5 MG Tablet PO (08:02)
[2022-05-31] MEDS: Meloxicam 7.5 MG Tablet PO ×2 (08:02→17:26)
[2022-05-31] MEDS: Multivitamins,Ther W-Minerals Tablet 1 TABLET PO (08:02)
[2022-05-31 08:05] VITALS: BP 140/91; PULSE 81
[2022-05-31] MEDS: 0.9% Saline Lock 10 ML Syringe IV (10:03)
[2022-05-31 14:04] VITALS: BP 138/66; PULSE 74; RESP 16; TEMP 36.2; O2SAT 95
[2022-05-31] MEDS: Pramipexole Di-HCl 1 MG Tablet PO (17:26)
[2022-05-31 20:12] VITALS: O2SAT 94
[2022-06-01] MEDS: MELATONIN 10 MG TABLET PO ×2 (00:41→23:15)
[2022-06-01] MEDS: oxyCODONE 5 MG Tablet PO ×5 (04:38→23:14)
[2022-06-01] MEDS: Acetaminophen 500 MG Tablet 1000 MG PO ×3 (04:39→20:57)
[2022-06-01] MEDS: Senna/Docusate Sodium 1 Tablet 2 TABLET PO (04:40)
[2022-06-01] MEDS: hydroCHLOROthiazide 25 MG Tablet PO (04:40)
[2022-06-01] MEDS: Pantoprazole Sodium 40 MG Tablet PO (04:40)
[2022-06-01 04:41] VITALS: BP 152/86; PULSE 67
[2022-06-01] MEDS: Cholecalciferol (VIT D3) 25 MCG TABLET (1,000 UNITS) PO (04:41)
[2022-06-01] MEDS: Sertraline 100 MG Tablet PO (04:41)
[2022-06-01] MEDS: Metoprolol(XL)Succ 100 MG Tablet PO (04:41)
[2022-06-01] MEDS: Magnesium Chloride 64 MG Delay Rel.Tablet PO (04:41)
[2022-06-01] MEDS: amLODIPine 2.5 MG Tablet PO (08:43)
[2022-06-01] MEDS: Multivitamins,Ther W-Minerals Tablet 1 TABLET PO (08:43)
[2022-06-01] MEDS: Calcium Carb/Vitamin D 1 TABLET Tablet PO (08:43)
[2022-06-01] MEDS: Gabapentin 300 MG Capsule PO ×3 (08:43→17:37)
[2022-06-01] MEDS: Meloxicam 7.5 MG Tablet PO ×2 (08:43→17:39)
[2022-06-01] MEDS: Aspirin E.C. 81 MG Tablet PO ×2 (08:43→17:39)
[2022-06-01] MEDS: Cyanocobalamin 500 MCG Tablet 1000 MCG PO (08:43)
[2022-06-01 08:54] VITALS: BP 122/76; PULSE 75
[2022-06-01 09:34] VITALS: PULSE 73; O2SAT 98
[2022-06-01] MEDS: 0.9% Saline Lock 10 ML Syringe IV (10:24)
[2022-06-01 12:36] VITALS: BP 108/58; PULSE 69; RESP 16; TEMP 36.3; O2SAT 94
[2022-06-01] MEDS: Pramipexole Di-HCl 1 MG Tablet PO (17:39)
[2022-06-02] MEDS: Acetaminophen 500 MG Tablet 1000 MG PO ×3 (05:17→21:53)
[2022-06-02] MEDS: oxyCODONE 5 MG Tablet PO ×4 (05:17→18:52)
[2022-06-02 05:18] VITALS: BP 151/90; PULSE 80
[2022-06-02] MEDS: Pantoprazole Sodium 40 MG Tablet PO (05:18)
[2022-06-02] MEDS: Cholecalciferol (VIT D3) 25 MCG TABLET (1,000 UNITS) PO (05:18)
[2022-06-02] MEDS: Metoprolol(XL)Succ 100 MG Tablet PO (05:18)
[2022-06-02] MEDS: Senna/Docusate Sodium 1 Tablet 2 TABLET PO ×2 (05:18→17:28)
[2022-06-02] MEDS: Sertraline 100 MG Tablet PO (05:18)
[2022-06-02] MEDS: Magnesium Chloride 64 MG Delay Rel.Tablet PO (05:19)
[2022-06-02] MEDS: hydroCHLOROthiazide 25 MG Tablet PO (05:19)
[2022-06-02] MEDS: Meloxicam 7.5 MG Tablet PO ×2 (08:21→17:28)
[2022-06-02] MEDS: Gabapentin 300 MG Capsule PO ×3 (08:21→17:28)
[2022-06-02] MEDS: Cyanocobalamin 500 MCG Tablet 1000 MCG PO (08:21)
[2022-06-02] MEDS: Aspirin E.C. 81 MG Tablet PO ×2 (08:21→17:28)
[2022-06-02] MEDS: Multivitamins,Ther W-Minerals Tablet 1 TABLET PO (08:21)
[2022-06-02] MEDS: amLODIPine 2.5 MG Tablet PO (08:22)
[2022-06-02] MEDS: Calcium Carb/Vitamin D 1 TABLET Tablet PO (08:22)
[2022-06-02 08:26] VITALS: BP 125/66; PULSE 65
[2022-06-02] MEDS: 0.9% Saline Lock 10 ML Syringe IV (09:57)
[2022-06-02 12:05] VITALS: BP 142/74; PULSE 72; RESP 14; TEMP 35.7; O2SAT 93
[2022-06-02] MEDS: Pramipexole Di-HCl 1 MG Tablet PO (17:28)
[2022-06-02] MEDS: MELATONIN 10 MG TABLET PO (21:53)
[2022-06-02 22:00] VITALS: PULSE 67; RESP 16; O2SAT 96
[2022-06-03] MEDS: oxyCODONE 5 MG Tablet PO ×3 (03:19→20:04)
[2022-06-03] MEDS: Senna/Docusate Sodium 1 Tablet 2 TABLET PO (05:19)
[2022-06-03] MEDS: Sertraline 100 MG Tablet PO (05:19)
[2022-06-03] MEDS: Cholecalciferol (VIT D3) 25 MCG TABLET (1,000 UNITS) PO (05:20)
[2022-06-03] MEDS: Magnesium Chloride 64 MG Delay Rel.Tablet PO (05:20)
[2022-06-03] MEDS: Pantoprazole Sodium 40 MG Tablet PO (05:20)
[2022-06-03] MEDS: hydroCHLOROthiazide 25 MG Tablet PO (05:21)
[2022-06-03] MEDS: Acetaminophen 500 MG Tablet 1000 MG PO ×3 (05:21→20:03)
[2022-06-03 05:23] VITALS: BP 131/75; PULSE 71
[2022-06-03] MEDS: Metoprolol(XL)Succ 100 MG Tablet PO (05:23)
[2022-06-03] MEDS: Gabapentin 300 MG Capsule PO ×3 (08:07→17:16)
[2022-06-03] MEDS: Aspirin E.C. 81 MG Tablet PO ×2 (08:07→17:16)
[2022-06-03] MEDS: amLODIPine 2.5 MG Tablet PO (08:07)
[2022-06-03] MEDS: Meloxicam 7.5 MG Tablet PO ×2 (08:07→17:15)
[2022-06-03] MEDS: Calcium Carb/Vitamin D 1 TABLET Tablet PO (08:07)
[2022-06-03] MEDS: Multivitamins,Ther W-Minerals Tablet 1 TABLET PO (08:08)
[2022-06-03] MEDS: Cyanocobalamin 500 MCG Tablet 1000 MCG PO (08:33)
[2022-06-03] MEDS: 0.9% Saline Lock 10 ML Syringe IV (09:58)
[2022-06-03 13:46] VITALS: BP 134/76; PULSE 72; RESP 16; TEMP 36.6; O2SAT 96
[2022-06-03] MEDS: Pramipexole Di-HCl 1 MG Tablet PO (17:16)
[2022-06-03] MEDS: MELATONIN 10 MG TABLET PO (20:04)
[2022-06-04] MEDS: oxyCODONE 5 MG Tablet PO ×3 (05:24→19:34)
[2022-06-04 05:25] VITALS: BP 143/88; PULSE 71
[2022-06-04] MEDS: Acetaminophen 500 MG Tablet 1000 MG PO ×3 (05:25→19:36)
[2022-06-04] MEDS: Cholecalciferol (VIT D3) 25 MCG TABLET (1,000 UNITS) PO (05:25)
[2022-06-04] MEDS: Metoprolol(XL)Succ 100 MG Tablet PO (05:25)
[2022-06-04] MEDS: Magnesium Chloride 64 MG Delay Rel.Tablet PO (05:25)
[2022-06-04] MEDS: Sertraline 100 MG Tablet PO (05:25)
[2022-06-04] MEDS: Pantoprazole Sodium 40 MG Tablet PO (05:25)
[2022-06-04] MEDS: hydroCHLOROthiazide 25 MG Tablet PO (05:26)
[2022-06-04] MEDS: Gabapentin 300 MG Capsule PO ×3 (08:15→17:20)
[2022-06-04] MEDS: Aspirin E.C. 81 MG Tablet PO ×2 (08:16→17:17)
[2022-06-04] MEDS: Meloxicam 7.5 MG Tablet PO ×2 (08:16→17:17)
[2022-06-04] MEDS: Multivitamins,Ther W-Minerals Tablet 1 TABLET PO (08:19)
[2022-06-04] MEDS: Calcium Carb/Vitamin D 1 TABLET Tablet PO (08:20)
[2022-06-04] MEDS: Cyanocobalamin 500 MCG Tablet 1000 MCG PO (08:20)
[2022-06-04] MEDS: amLODIPine 2.5 MG Tablet PO (08:21)
[2022-06-04 08:28] VITALS: BP 143/95; PULSE 82
[2022-06-04] MEDS: 0.9% Saline Lock 10 ML Syringe IV (10:02)
--- NOTE | 2022-06-04 13:32 | NS ---
Res requesting that ensure plus high protein supplement be stopped. Does not want any other ONS at this time.
[2022-06-04 13:50] VITALS: BP 120/77; PULSE 69; RESP 16; TEMP 36.4; O2SAT 93
[2022-06-04 16:24] VITALS: PULSE 88; RESP 18; O2SAT 94
[2022-06-04] MEDS: Senna/Docusate Sodium 1 Tablet 2 TABLET PO (17:18)
[2022-06-04] MEDS: Pramipexole Di-HCl 1 MG Tablet PO (17:18)
[2022-06-04] MEDS: MELATONIN 10 MG TABLET PO (19:34)
[2022-06-05 05:36] LABS: Erythrocyte Sedimentation Rate 19 mm/hr (0-30)
[2022-06-05 05:38] LABS: Absolute Lymphocyte Count 1.05 X10^3/uL (0.83-4.51); Absolute Neutrophil Count 1.7 X10^3/uL (2.0-7.7); Basophil# 0.07 X10^3/uL; Eosinophils% 8.6 % (0-5); Hemoglobin 10.7 g/dL (12.0-15.0); Lymphocyte # 1.05 X10^3/ul (0.83-4.51); Mean Corp Hgb Conc 30.6 g/dL (32-36); Mean Platelet Vol. 9.3 fl (6.2-12.0); Monocyte% 11.4 % (0-10); NRBC Flagged by Analyzer 0 % (0-5); Neutrophil # 1.66 X10^3/uL (2.7-7.7); Neutrophil % 47.4 % (47-70); Platelet Count 170 K/mm3 (150-450); RBC Distribution Width CV 13.8 % (11.6-14.6); Red Blood Count 4.12 M/mm3 (4.2-5.4); White Blood Count 3.5 K/mm3 (4.4-11.0)
[2022-06-05 05:51] LABS: Anion Gap 5 (5-15); BUN 16 mg/dL (7-18); BUN/Creat Ratio 30.5 RATIO (10-20); Calcium,Total 9.3 mg/dL (8.5-10.1); Chloride 99 mmol/L (98-107); Creatinine, Serum 0.52 mg/dL (0.55-1.02); EST Glomerular Filtration Rate 120 mL/min (>60); Est Glom Filt Rate - Afr Amer 145 mL/min (>60); Estimated Creatinine Clearance 37.26 ml/min; Glucose 94 mg/dL (74-106); Potassium 3.8 mmol/L (3.5-5.1); Sodium Level 136 mmol/L (136-145)
[2022-06-05] MEDS: oxyCODONE 5 MG Tablet PO ×3 (05:55→20:40)
[2022-06-05] MEDS: hydroCHLOROthiazide 25 MG Tablet PO (05:56)
[2022-06-05] MEDS: Sertraline 100 MG Tablet PO (05:56)
[2022-06-05] MEDS: Magnesium Chloride 64 MG Delay Rel.Tablet PO (05:56)
[2022-06-05] MEDS: Pantoprazole Sodium 40 MG Tablet PO (05:56)
[2022-06-05 05:57] VITALS: BP 130/65; PULSE 72
[2022-06-05] MEDS: Metoprolol(XL)Succ 100 MG Tablet PO (05:57)
[2022-06-05] MEDS: Acetaminophen 500 MG Tablet 1000 MG PO ×3 (05:57→20:39)
[2022-06-05] MEDS: Cholecalciferol (VIT D3) 25 MCG TABLET (1,000 UNITS) PO (05:57)
[2022-06-05] MEDS: Gabapentin 300 MG Capsule PO ×3 (08:44→18:09)
[2022-06-05] MEDS: Aspirin E.C. 81 MG Tablet PO ×2 (08:45→18:07)
[2022-06-05] MEDS: Calcium Carb/Vitamin D 1 TABLET Tablet PO (08:45)
[2022-06-05] MEDS: Multivitamins,Ther W-Minerals Tablet 1 TABLET PO (08:45)
[2022-06-05] MEDS: Meloxicam 7.5 MG Tablet PO ×2 (08:45→18:07)
[2022-06-05] MEDS: Cyanocobalamin 500 MCG Tablet 1000 MCG PO (08:46)
[2022-06-05] MEDS: amLODIPine 2.5 MG Tablet PO (08:46)
[2022-06-05 08:54] VITALS: BP 141/95; PULSE 72
[2022-06-05 09:50] VITALS: PULSE 83; RESP 18; O2SAT 93
[2022-06-05] MEDS: 0.9% Saline Lock 10 ML Syringe IV (09:51)
[2022-06-05 14:24] VITALS: BP 113/80; PULSE 70; RESP 18; TEMP 36.1; O2SAT 95
[2022-06-05] MEDS: Pramipexole Di-HCl 1 MG Tablet PO (18:07)
[2022-06-05] MEDS: MELATONIN 10 MG TABLET PO (20:40)
[2022-06-06] MEDS: Acetaminophen 500 MG Tablet 1000 MG PO ×3 (05:41→22:05)
[2022-06-06] MEDS: Cholecalciferol (VIT D3) 25 MCG TABLET (1,000 UNITS) PO (05:42)
[2022-06-06] MEDS: Sertraline 100 MG Tablet PO (05:42)
[2022-06-06] MEDS: Pantoprazole Sodium 40 MG Tablet PO (05:42)
[2022-06-06 05:43] VITALS: BP 151/77; PULSE 65
[2022-06-06] MEDS: Magnesium Chloride 64 MG Delay Rel.Tablet PO (05:43)
[2022-06-06] MEDS: Metoprolol(XL)Succ 100 MG Tablet PO (05:43)
[2022-06-06] MEDS: hydroCHLOROthiazide 25 MG Tablet PO (05:43)
[2022-06-06] MEDS: Aspirin E.C. 81 MG Tablet PO ×2 (07:53→16:52)
[2022-06-06] MEDS: oxyCODONE 5 MG Tablet PO ×2 (07:53→22:04)
[2022-06-06] MEDS: Gabapentin 300 MG Capsule PO ×3 (07:53→16:53)
[2022-06-06] MEDS: Multivitamins,Ther W-Minerals Tablet 1 TABLET PO (07:54)
[2022-06-06] MEDS: amLODIPine 2.5 MG Tablet PO (07:54)
[2022-06-06] MEDS: Calcium Carb/Vitamin D 1 TABLET Tablet PO (07:54)
[2022-06-06] MEDS: Meloxicam 7.5 MG Tablet PO ×2 (07:54→16:53)
[2022-06-06] MEDS: Cyanocobalamin 500 MCG Tablet 1000 MCG PO (07:54)
[2022-06-06] MEDS: 0.9% Saline Lock 10 ML Syringe IV ×2 (10:42→22:14)
[2022-06-06 13:57] VITALS: BP 148/83; PULSE 70; RESP 18; TEMP 36.3; O2SAT 94
--- NOTE | 2022-06-06 15:41 | CHAPLAIN ---
Type of Pastoral Visit ___ Initial Visit ___ Follow-up Visit ___ On-call Visit ___ General Patient Visit ___ Spiritual Assessment ___ Family Conference ___ Bereavement ___ Rapid Response ___ Code Blue ___ Other (describe below) Pastoral Care Referral From ___ Patient ___ Family ___ Nurse ___ Physician ___ Perch Mender ___ Catering Operations Manager ___ Other (describe below) Sacrament/Intervention ___ Active listening ___ Anointing ___ Buddhist ___ Bereavement ___ Communion ___ Leti exploration ___ ___ Life review ___ Prayer ___ Reconciliation ___ Sacrament of Sick ___ Supportive presence ___ Wedding ___ Other (describe below) Pastoral Comments brief visit and greeting in the hallway as she was making her way to play [employer]; pt gives short update on her health
[2022-06-06] MEDS: Pramipexole Di-HCl 1 MG Tablet PO (16:53)
[2022-06-06] MEDS: MELATONIN 10 MG TABLET PO (22:04)
[2022-06-06 22:15] VITALS: O2SAT 97
[2022-06-07] MEDS: Magnesium Chloride 64 MG Delay Rel.Tablet PO (06:17)
[2022-06-07] MEDS: hydroCHLOROthiazide 25 MG Tablet PO (06:17)
[2022-06-07] MEDS: Pantoprazole Sodium 40 MG Tablet PO (06:17)
[2022-06-07] MEDS: Senna/Docusate Sodium 1 Tablet 2 TABLET PO (06:19)
[2022-06-07] MEDS: Acetaminophen 500 MG Tablet 1000 MG PO ×3 (06:19→21:00)
[2022-06-07] MEDS: Sertraline 100 MG Tablet PO (06:19)
[2022-06-07 06:21] VITALS: BP 126/79; PULSE 75
[2022-06-07] MEDS: Metoprolol(XL)Succ 100 MG Tablet PO (06:21)
[2022-06-07] MEDS: Cholecalciferol (VIT D3) 25 MCG TABLET (1,000 UNITS) PO (06:22)
[2022-06-07] MEDS: Aspirin E.C. 81 MG Tablet PO ×2 (08:19→17:07)
[2022-06-07] MEDS: Gabapentin 300 MG Capsule PO ×3 (08:19→17:11)
[2022-06-07] MEDS: Calcium Carb/Vitamin D 1 TABLET Tablet PO (08:20)
[2022-06-07] MEDS: Multivitamins,Ther W-Minerals Tablet 1 TABLET PO (08:20)
[2022-06-07] MEDS: Cyanocobalamin 500 MCG Tablet 1000 MCG PO (08:20)
[2022-06-07] MEDS: Meloxicam 7.5 MG Tablet PO ×2 (08:20→17:08)
[2022-06-07] MEDS: amLODIPine 2.5 MG Tablet PO (08:23)
[2022-06-07] MEDS: oxyCODONE 5 MG Tablet PO ×2 (08:25→20:59)
[2022-06-07 08:28] VITALS: BP 121/81; PULSE 81
[2022-06-07] MEDS: 0.9% Saline Lock 10 ML Syringe IV (09:13)
[2022-06-07 09:47] VITALS: PULSE 68; RESP 18; O2SAT 93
[2022-06-07 14:53] VITALS: BP 148/86; PULSE 97; RESP 16; TEMP 36.7
[2022-06-07] MEDS: Pramipexole Di-HCl 1 MG Tablet PO (17:08)
[2022-06-07] MEDS: MELATONIN 10 MG TABLET PO (21:02)
[2022-06-08 05:40] VITALS: BP 143/67; PULSE 70
[2022-06-08] MEDS: Magnesium Chloride 64 MG Delay Rel.Tablet PO (05:40)
[2022-06-08] MEDS: Acetaminophen 500 MG Tablet 1000 MG PO ×3 (05:40→21:39)
[2022-06-08] MEDS: Metoprolol(XL)Succ 100 MG Tablet PO (05:40)
[2022-06-08] MEDS: Pantoprazole Sodium 40 MG Tablet PO (05:41)
[2022-06-08] MEDS: Sertraline 100 MG Tablet PO (05:41)
[2022-06-08] MEDS: hydroCHLOROthiazide 25 MG Tablet PO (05:41)
[2022-06-08] MEDS: Senna/Docusate Sodium 1 Tablet 2 TABLET PO ×2 (05:42→18:01)
[2022-06-08] MEDS: Cholecalciferol (VIT D3) 25 MCG TABLET (1,000 UNITS) PO (05:43)
[2022-06-08] MEDS: Gabapentin 300 MG Capsule PO ×3 (08:34→18:00)
[2022-06-08] MEDS: Meloxicam 7.5 MG Tablet PO ×2 (08:34→18:00)
[2022-06-08] MEDS: Calcium Carb/Vitamin D 1 TABLET Tablet PO (08:35)
[2022-06-08] MEDS: Multivitamins,Ther W-Minerals Tablet 1 TABLET PO (08:35)
[2022-06-08] MEDS: amLODIPine 2.5 MG Tablet PO (08:35)
[2022-06-08] MEDS: Cyanocobalamin 500 MCG Tablet 1000 MCG PO (08:35)
[2022-06-08] MEDS: oxyCODONE 5 MG Tablet PO (08:40)
[2022-06-08] MEDS: 0.9% Saline Lock 10 ML Syringe IV (10:25)
--- NOTE | 2022-06-08 14:33 | CHAPLAIN ---
Type of Pastoral Visit ___ Initial Visit _x__ Follow-up Visit ___ On-call Visit ___ General Patient Visit ___ Spiritual Assessment ___ Family Conference ___ Bereavement ___ Rapid Response ___ Code Blue ___ Other (describe below) Pastoral Care Referral From _x__ Patient ___ Family ___ Nurse ___ Physician ___ Construction Safety Consultant ___ Flight Security Specialist ___ Other (describe below) Sacrament/Intervention _x__ Active listening ___ Anointing ___ Jew ___ Bereavement ___ Communion ___ Leti exploration ___ _x__ Life review _x__ Prayer ___ Reconciliation ___ Sacrament of Sick _x__ Supportive presence ___ Wedding ___ Other (describe below) Pastoral Comments patient had requested a follow up visit and now gives updated report on her progress and projected discharge; pt has large selection of family pictures on her table and explains each one; pt has had numerous visits by family and friends per her report; pt has normal conversation during this time; pt does request prayer and offers to pray for this labor commissioner too
[2022-06-08 15:59] VITALS: BP 138/80; PULSE 66; RESP 16; TEMP 37.1; O2SAT 94
[2022-06-08] MEDS: Pramipexole Di-HCl 1 MG Tablet PO (18:01)
[2022-06-09] MEDS: oxyCODONE 5 MG Tablet PO ×3 (03:29→22:47)
[2022-06-09] MEDS: Sertraline 100 MG Tablet PO (04:57)
[2022-06-09 04:58] VITALS: BP 158/68; PULSE 75
[2022-06-09] MEDS: Metoprolol(XL)Succ 100 MG Tablet PO (04:58)
[2022-06-09] MEDS: Cholecalciferol (VIT D3) 25 MCG TABLET (1,000 UNITS) PO (04:58)
[2022-06-09] MEDS: Senna/Docusate Sodium 1 Tablet 2 TABLET PO ×2 (04:59→17:24)
[2022-06-09] MEDS: Acetaminophen 500 MG Tablet 1000 MG PO ×3 (05:00→22:46)
[2022-06-09] MEDS: hydroCHLOROthiazide 25 MG Tablet PO (05:00)
[2022-06-09] MEDS: Magnesium Chloride 64 MG Delay Rel.Tablet PO (05:00)
[2022-06-09] MEDS: Pantoprazole Sodium 40 MG Tablet PO (05:01)
[2022-06-09] MEDS: Gabapentin 300 MG Capsule PO ×3 (09:09→17:23)
[2022-06-09] MEDS: Meloxicam 7.5 MG Tablet PO ×2 (09:10→17:23)
[2022-06-09] MEDS: Multivitamins,Ther W-Minerals Tablet 1 TABLET PO (09:10)
[2022-06-09] MEDS: amLODIPine 2.5 MG Tablet PO (09:10)
[2022-06-09] MEDS: Calcium Carb/Vitamin D 1 TABLET Tablet PO (09:11)
[2022-06-09] MEDS: Cyanocobalamin 500 MCG Tablet 1000 MCG PO (09:11)
[2022-06-09] MEDS: 0.9% Saline Lock 10 ML Syringe IV ×2 (10:31→11:19)
[2022-06-09 14:36] VITALS: BP 148/84; PULSE 73; RESP 16; TEMP 36.4; O2SAT 95
[2022-06-09] MEDS: Pramipexole Di-HCl 1 MG Tablet PO (17:23)
[2022-06-10 05:26] VITALS: BP 147/78; PULSE 71
[2022-06-10] MEDS: Acetaminophen 500 MG Tablet 1000 MG PO ×3 (05:26→20:08)
[2022-06-10] MEDS: Metoprolol(XL)Succ 100 MG Tablet PO (05:26)
[2022-06-10] MEDS: Sertraline 100 MG Tablet PO (05:26)
[2022-06-10] MEDS: Magnesium Chloride 64 MG Delay Rel.Tablet PO (05:27)
[2022-06-10] MEDS: Senna/Docusate Sodium 1 Tablet 2 TABLET PO (05:27)
[2022-06-10] MEDS: Cholecalciferol (VIT D3) 25 MCG TABLET (1,000 UNITS) PO (05:27)
[2022-06-10] MEDS: Pantoprazole Sodium 40 MG Tablet PO (05:27)
[2022-06-10] MEDS: hydroCHLOROthiazide 25 MG Tablet PO (05:30)
[2022-06-10] MEDS: Gabapentin 300 MG Capsule PO ×3 (08:24→18:11)
[2022-06-10] MEDS: Meloxicam 7.5 MG Tablet PO ×2 (08:24→18:13)
[2022-06-10] MEDS: Multivitamins,Ther W-Minerals Tablet 1 TABLET PO (08:25)
[2022-06-10] MEDS: amLODIPine 2.5 MG Tablet PO (08:25)
[2022-06-10] MEDS: Calcium Carb/Vitamin D 1 TABLET Tablet PO (08:26)
[2022-06-10] MEDS: Cyanocobalamin 500 MCG Tablet 1000 MCG PO (08:27)
[2022-06-10] MEDS: 0.9% Saline Lock 10 ML Syringe IV (09:59)
[2022-06-10] MEDS: oxyCODONE 5 MG Tablet PO ×2 (10:07→18:16)
[2022-06-10 15:28] VITALS: BP 161/94; PULSE 77; RESP 20; TEMP 36.9; O2SAT 92
--- NOTE | 2022-06-10 15:29 | NURSING ---
patient left the facility with family her brother is at hospice and is not doing well. Dr. seay was notified and said it was ok.
[2022-06-10] MEDS: Pramipexole Di-HCl 1 MG Tablet PO (18:13)
[2022-06-10] MEDS: MELATONIN 10 MG TABLET PO (20:16)
[2022-06-10 21:15] VITALS: O2SAT 96
[2022-06-11] MEDS: oxyCODONE 5 MG Tablet PO ×3 (01:09→20:41)
[2022-06-11] MEDS: Pantoprazole Sodium 40 MG Tablet PO (04:40)
[2022-06-11] MEDS: Acetaminophen 500 MG Tablet 1000 MG PO ×3 (04:40→20:41)
[2022-06-11] MEDS: Magnesium Chloride 64 MG Delay Rel.Tablet PO (04:40)
[2022-06-11] MEDS: Sertraline 100 MG Tablet PO (04:40)
[2022-06-11] MEDS: Cholecalciferol (VIT D3) 25 MCG TABLET (1,000 UNITS) PO (04:41)
[2022-06-11] MEDS: hydroCHLOROthiazide 25 MG Tablet PO (04:41)
[2022-06-11 04:46] VITALS: BP 147/83; PULSE 75
[2022-06-11] MEDS: Metoprolol(XL)Succ 100 MG Tablet PO (04:46)
[2022-06-11] MEDS: Calcium Carb/Vitamin D 1 TABLET Tablet PO (08:25)
[2022-06-11] MEDS: Multivitamins,Ther W-Minerals Tablet 1 TABLET PO (08:25)
[2022-06-11] MEDS: Meloxicam 7.5 MG Tablet PO ×2 (08:25→18:07)
[2022-06-11] MEDS: amLODIPine 2.5 MG Tablet PO (08:25)
[2022-06-11] MEDS: Gabapentin 300 MG Capsule PO ×3 (08:26→18:06)
[2022-06-11] MEDS: Cyanocobalamin 500 MCG Tablet 1000 MCG PO (08:26)
[2022-06-11 11:00] VITALS: O2SAT 97
[2022-06-11] MEDS: 0.9% Saline Lock 10 ML Syringe IV (11:10)
[2022-06-11 14:23] VITALS: BP 112/59; PULSE 72; RESP 16; TEMP 36; O2SAT 96
[2022-06-11] MEDS: Senna/Docusate Sodium 1 Tablet 2 TABLET PO (18:06)
[2022-06-11] MEDS: Pramipexole Di-HCl 1 MG Tablet PO (18:07)
[2022-06-12 05:53] LABS: Absolute Lymphocyte Count 1.16 X10^3/uL (0.83-4.51); Absolute Neutrophil Count 2.4 X10^3/uL (2.0-7.7); Basophil# 0.07 X10^3/uL; Basophil% 1.6 % (0-1); Eosinophil# 0.26 X10^3/uL; Eosinophils% 5.9 % (0-5); Hematocrit 35.3 % (37-47); Hemoglobin 10.7 g/dL (12.0-15.0); Lymphocyte # 1.16 X10^3/ul (0.83-4.51); Lymphocyte % 26.1 % (19-41); Mean Corp Hgb Conc 30.3 g/dL (32-36); Mean Corpuscular Hgb 25.7 pg (27.0-32.0); Mean Corpuscular Volume 84.7 fL (81-99); Mean Platelet Vol. 9.2 fl (6.2-12.0); Monocyte% 11.3 % (0-10); NRBC Flagged by Analyzer 0 % (0-5); Neutrophil # 2.44 X10^3/uL (2.7-7.7); Neutrophil % 54.9 % (47-70); Platelet Count 155 K/mm3 (150-450); RBC Distribution Width CV 13.8 % (11.6-14.6); Red Blood Count 4.17 M/mm3 (4.2-5.4); White Blood Count 4.4 K/mm3 (4.4-11.0)
[2022-06-12 06:00] VITALS: BP 158/83; PULSE 91; RESP 17; TEMP 36.7; O2SAT 97
[2022-06-12] MEDS: Acetaminophen 500 MG Tablet 1000 MG PO ×3 (06:14→20:53)
[2022-06-12] MEDS: Sertraline 100 MG Tablet PO (06:14)
[2022-06-12 06:15] VITALS: BP 158/83; PULSE 91
[2022-06-12] MEDS: Pantoprazole Sodium 40 MG Tablet PO (06:15)
[2022-06-12] MEDS: hydroCHLOROthiazide 25 MG Tablet PO (06:15)
[2022-06-12] MEDS: Magnesium Chloride 64 MG Delay Rel.Tablet PO (06:15)
[2022-06-12] MEDS: Metoprolol(XL)Succ 100 MG Tablet PO (06:15)
[2022-06-12] MEDS: Cholecalciferol (VIT D3) 25 MCG TABLET (1,000 UNITS) PO (06:17)
[2022-06-12 06:27] LABS: Anion Gap 5 (5-15); BUN 19 mg/dL (7-18); BUN/Creat Ratio 28.2 RATIO (10-20); Calcium,Total 9.1 mg/dL (8.5-10.1); Chloride 102 mmol/L (98-107); Creatinine, Serum 0.67 mg/dL (0.55-1.02); EST Glomerular Filtration Rate 90 mL/min (>60); Est Glom Filt Rate - Afr Amer 109 mL/min (>60); Estimated Creatinine Clearance 37.26 ml/min; Glucose 88 mg/dL (74-106); Potassium 3.8 mmol/L (3.5-5.1); Sodium Level 137 mmol/L (136-145)
[2022-06-12 07:01] LABS: Erythrocyte Sedimentation Rate 18 mm/hr (0-30)
[2022-06-12] MEDS: Multivitamins,Ther W-Minerals Tablet 1 TABLET PO (08:18)
[2022-06-12] MEDS: Calcium Carb/Vitamin D 1 TABLET Tablet PO (08:19)
[2022-06-12] MEDS: Cyanocobalamin 500 MCG Tablet 1000 MCG PO ×2 (08:19→08:20)
[2022-06-12] MEDS: Meloxicam 7.5 MG Tablet PO ×2 (08:19→17:06)
[2022-06-12] MEDS: amLODIPine 2.5 MG Tablet PO (08:19)
[2022-06-12] MEDS: oxyCODONE 5 MG Tablet PO ×2 (08:27→17:11)
[2022-06-12] MEDS: Gabapentin 300 MG Capsule PO ×3 (08:27→17:11)
[2022-06-12 08:31] VITALS: BP 130/88; PULSE 96
[2022-06-12] MEDS: 0.9% Saline Lock 10 ML Syringe IV (09:56)
--- NOTE | 2022-06-12 15:21 | NURSING ---
LABS FAXED BY THIS NURSE TO .
[2022-06-12] MEDS: Pramipexole Di-HCl 1 MG Tablet PO (17:09)
[2022-06-12 20:40] VITALS: BP 137/85; PULSE 87; RESP 18; TEMP 20.8; O2SAT 94
[2022-06-13 05:00] VITALS: BP 145/92; PULSE 74; RESP 16; TEMP 36.3; O2SAT 92
[2022-06-13] MEDS: Acetaminophen 500 MG Tablet 1000 MG PO ×3 (05:09→22:58)
[2022-06-13 05:10] VITALS: BP 145/91; PULSE 74
[2022-06-13] MEDS: Metoprolol(XL)Succ 100 MG Tablet PO (05:10)
[2022-06-13] MEDS: Sertraline 100 MG Tablet PO (05:10)
[2022-06-13] MEDS: Pantoprazole Sodium 40 MG Tablet PO (05:11)
[2022-06-13] MEDS: hydroCHLOROthiazide 25 MG Tablet PO (05:11)
[2022-06-13] MEDS: Cholecalciferol (VIT D3) 25 MCG TABLET (1,000 UNITS) PO (05:11)
[2022-06-13] MEDS: Magnesium Chloride 64 MG Delay Rel.Tablet PO (05:11)
[2022-06-13] MEDS: oxyCODONE 5 MG Tablet PO ×2 (05:12→16:28)
[2022-06-13] MEDS: Calcium Carb/Vitamin D 1 TABLET Tablet PO (08:41)
[2022-06-13] MEDS: Gabapentin 300 MG Capsule PO ×3 (08:41→17:20)
[2022-06-13] MEDS: Cyanocobalamin 500 MCG Tablet 1000 MCG PO ×2 (08:41)
[2022-06-13] MEDS: Multivitamins,Ther W-Minerals Tablet 1 TABLET PO (08:42)
[2022-06-13] MEDS: Meloxicam 7.5 MG Tablet PO ×2 (08:42→17:23)
[2022-06-13] MEDS: amLODIPine 2.5 MG Tablet PO (08:45)
[2022-06-13 08:48] VITALS: BP 131/83; PULSE 83
[2022-06-13] MEDS: 0.9% Saline Lock 10 ML Syringe IV (10:41)
[2022-06-13 13:10] VITALS: PULSE 84; RESP 18; O2SAT 96
[2022-06-13 14:26] VITALS: BP 126/78; PULSE 86; RESP 16; TEMP 35.9; O2SAT 95
[2022-06-13] MEDS: Pramipexole Di-HCl 1 MG Tablet PO (17:21)
[2022-06-13] MEDS: MELATONIN 10 MG TABLET PO (22:58)
[2022-06-14] MEDS: hydroCHLOROthiazide 25 MG Tablet PO (05:13)
[2022-06-14 05:14] VITALS: BP 130/83; PULSE 81
[2022-06-14] MEDS: Metoprolol(XL)Succ 100 MG Tablet PO (05:14)
[2022-06-14] MEDS: Pantoprazole Sodium 40 MG Tablet PO (05:14)
[2022-06-14] MEDS: Magnesium Chloride 64 MG Delay Rel.Tablet PO (05:14)
[2022-06-14] MEDS: Acetaminophen 500 MG Tablet 1000 MG PO ×3 (05:15→20:02)
[2022-06-14] MEDS: Sertraline 100 MG Tablet PO (05:15)
[2022-06-14] MEDS: Cholecalciferol (VIT D3) 25 MCG TABLET (1,000 UNITS) PO (05:16)
[2022-06-14] MEDS: oxyCODONE 5 MG Tablet PO ×3 (05:20→20:02)
[2022-06-14] MEDS: 0.9% Saline Lock 10 ML Syringe IV (05:40)
[2022-06-14] MEDS: Gabapentin 300 MG Capsule PO ×3 (07:47→17:51)
[2022-06-14] MEDS: Calcium Carb/Vitamin D 1 TABLET Tablet PO (07:48)
[2022-06-14] MEDS: Cyanocobalamin 500 MCG Tablet 1000 MCG PO (07:48)
[2022-06-14] MEDS: amLODIPine 2.5 MG Tablet PO (07:49)
[2022-06-14] MEDS: Meloxicam 7.5 MG Tablet PO ×2 (07:49→17:51)
[2022-06-14] MEDS: Multivitamins,Ther W-Minerals Tablet 1 TABLET PO (07:49)
[2022-06-14 11:03] VITALS: PULSE 80; RESP 17
[2022-06-14 16:00] VITALS: BP 140/84; PULSE 78; RESP 16; TEMP 36.4; O2SAT 98
[2022-06-14] MEDS: Pramipexole Di-HCl 1 MG Tablet PO (17:51)
[2022-06-14] MEDS: MELATONIN 10 MG TABLET PO (20:02)
[2022-06-15] MEDS: Acetaminophen 500 MG Tablet 1000 MG PO ×3 (05:44→20:35)
[2022-06-15] MEDS: Magnesium Chloride 64 MG Delay Rel.Tablet PO (05:44)
[2022-06-15] MEDS: Cholecalciferol (VIT D3) 25 MCG TABLET (1,000 UNITS) PO (05:44)
[2022-06-15 05:45] VITALS: BP 148/87; PULSE 81
[2022-06-15] MEDS: Pantoprazole Sodium 40 MG Tablet PO (05:45)
[2022-06-15] MEDS: hydroCHLOROthiazide 25 MG Tablet PO (05:45)
[2022-06-15] MEDS: Metoprolol(XL)Succ 100 MG Tablet PO (05:45)
[2022-06-15] MEDS: Sertraline 100 MG Tablet PO (05:46)
[2022-06-15] MEDS: oxyCODONE 5 MG Tablet PO ×2 (06:32→14:26)
[2022-06-15] MEDS: Meloxicam 7.5 MG Tablet PO ×2 (07:46→17:27)
[2022-06-15] MEDS: Gabapentin 300 MG Capsule PO ×3 (07:46→17:27)
[2022-06-15] MEDS: amLODIPine 2.5 MG Tablet PO (07:46)
[2022-06-15] MEDS: Cyanocobalamin 500 MCG Tablet 1000 MCG PO (07:46)
[2022-06-15] MEDS: Calcium Carb/Vitamin D 1 TABLET Tablet PO (07:46)
[2022-06-15] MEDS: Multivitamins,Ther W-Minerals Tablet 1 TABLET PO (07:47)
--- NOTE | 2022-06-15 15:03 | CHAPLAIN ---
Type of Pastoral Visit ___ Initial Visit _x__ Follow-up Visit ___ On-call Visit ___ General Patient Visit ___ Spiritual Assessment ___ Family Conference ___ Bereavement ___ Rapid Response ___ Code Blue ___ Other (describe below) Pastoral Care Referral From _x__ Patient ___ Family ___ Nurse ___ Physician ___ Registered Dietitian ___ Jig Worker ___ Other (describe below) Sacrament/Intervention _x__ Active listening ___ Anointing ___ Adventism ___ Bereavement ___ Communion ___ Leit exploration ___ _x__ Life review _x_ Prayer ___ Reconciliation ___ Sacrament of Sick ___ Supportive presence ___ Wedding ___ Other (describe below) Pastoral Comments this manager body stopped in room to give a brief hello; pt had visitors and she asked this manager body to stay and meet them; casual conversation until patient talked about visiting her dying brother this week and how important that was to her; pt is appreciative of staff that made that possible; pt is looking forward to her release next week; pt asks for continued prayers and support
--- NOTE | 2022-06-15 15:09 | CASEMGMT ---
Social Work Insurance officially issued LCD 06/21, DC 06/22, and end of IV ATB. Pt agreeable and has no needs. Pt will complete HEP for therapy at DC. Dtr to transport. Plan: DC home alone 06/22, no needs Sophia Whittington MSW SENIOR INVESTIGATOR
--- NOTE | 2022-06-15 15:14 | DS.PCM_ITS ---
Providers Date of Admission: 05/21/22 Primary Care Physician: Dr. Cheryl Russell DO Reason For Visit: LEFT TOTAL KNEE REVISION Diagnosis Discharge Diagnosis (1) Debility: Status: Acute Code(s): R53.81 - Other malaise (2) Infection of prosthetic left knee joint: Status: Acute Code(s): T84.54XA - Infection and inflammatory reaction due to internal left knee prosthesis, initial encounter (3) Postoperative anemia: Status: Acute Code(s): D64.9 - Anemia, unspecified (4) Lab test positive for detection of COVID-19 virus: Status: Acute Code(s): U07.1 - COVID-19 (5) Dehydration: Status: Acute Code(s): E86.0 - Dehydration (6) Hypertension: Status: Chronic Code(s): I10 - Essential (primary) hypertension (7) Vitamin B12 deficiency: Status: Acute Code(s): E53.8 - Deficiency of other specified B group vitamins (8) Neuropathic pain: Status: Acute Code(s): M79.2 - Neuralgia and neuritis, unspecified (9) Hypomagnesemia: Status: Acute Code(s): E83.42 - Hypomagnesemia (10) Insomnia: Status: Acute Code(s): G47.00 - Insomnia, unspecified (11) GERD (gastroesophageal reflux disease): Status: Acute Code(s): K21.9 - Gastro-esophageal reflux disease without esophagitis (12) Restless leg syndrome: Status: Acute Code(s): G25.81 - Restless legs syndrome (13) Depression: Status: Acute Code(s): F32.A - Depression, unspecified (14) Vitamin D deficiency: Status: Acute Code(s): E55.9 - Vitamin D deficiency, unspecified Plan 77 year old female with below past medical history hospitalized for left prosthetic knee infection, status post left prosthetic knee explant with antibiotic spacer placement 05/10/[address] Loredo, complicated by postoperative anemia, dehydration, false positive covid19 test, admitted to TCU with debility, here for rehabilitation, strengthening, intravenous antibiotics, prior to discharge home alone. * Debility - PT/OT. * Pain - Tylenol 1000mg q8, Oxycodone 5-10mg q4h prn. * Bowel - Miralax 17gm daily, senna/colace 2 tablets bid. * Adult immunization - Administer pneumonia vaccine, covid19 vaccine, flu vaccine as appropriate. * DVT prophylaxis - Xarelto 10mg thru 05/24/2022, then aspirin 81mg bid thru 06/07/2022. * Hypertension - Metoprolol succinate 100mg daily, Amlodipine 2.5mg daily, HCTZ 25mg daily. * Calcium deficiency - Calcium D 1 tablet daily. * Left prosthetic knee infection s/p explant/antibiotic spacer - Ceftriaxone 2gm iv q24 thru 06/21/2022. * Vitamin B12 deficiency - B12 1000mcg daily. * Neuropathic pain - Gabapentin 300mg tidcm. * Hypomagnesemia - Magnesium chloride 64mg daily. * Insomnia - Melatonin 10mg qhs prn. * Osteoarthritis - Meloxicam 7.5mg bid. * Nutrition - MVI daily. * Restless leg syndrome - Mirapex 1mg qpm. * Depression - Sertraline 100mg daily, stable chronic lobsterman use, GDR not recommended. * Vitamin D deficiency - Vitamin D3 25mcg daily. Medications at Discharge Home Medications amlodipine 2.5 mg tablet 2.5 mg PO DAILY Heart 08/04/19 calcium carbonate-vitamin D3 600 mg-125 unit tablet 1 tab PO 0800 Supplement 08/04/19 cyanocobalamin (vitamin B-12) 500 mcg tablet 1,000 mcg PO DAILY@0800 supplement 08/04/19 hydrochlorothiazide 25 mg tablet 25 mg PO DAILY Heart 08/04/19 melatonin 5 mg tablet 10 mg PO QHS PRN Sleep 08/04/19 multivitamin with minerals 1 tab PO DAILY supplement 08/04/19 omeprazole 40 mg capsule,delayed release 40 mg PO DAILY GERD 08/04/19 sertraline 100 mg tablet 100 mg PO DAILY depression 08/04/19 gabapentin 300 mg capsule 300 mg PO TIDCM pain 10/26/21 magnesium chloride 64 mg (magnesium chloride) tablet,delayed release (Mag 64) 64 mg PO DAILY supplement 10/26/21 cholecalciferol (vitamin D3) 25 mcg (1,000 unit) tablet 25 mcg PO DAILY SUPPLEMENT 01/26/22 pramipexole 0.5 mg tablet 1 mg PO QHS RLS 01/26/22 meloxicam 7.5 mg tablet 7.5 mg PO BID PAIN 04/27/22 sennosides 8.6 mg-docusate sodium 50 mg tablet (Stool Softener-Stimulant Laxative) 2 tab PO BID Constipation 05/21/22 acetaminophen 500 mg tablet 1,000 mg PO Q8 #0 tabs 06/15/22 metoprolol succinate 100 mg tablet,extended release 24 hr 100 mg PO DAILY 30 days #30 tabs 06/15/22 oxycodone 5 mg tablet 5 - 10 mg PO Q4H PRN PRN Pain Score 4-10 7 days #42 tabs 06/15/22 Hospital Course Operations - (See below.) Procedures None Summary of Care Provided Minutes Spent on Discharge: 35 Hospital Course: 77 year old female with below past medical history hospitalized for left prosthetic knee infection, status post left prosthetic knee explant with antibiotic spacer placement 05/10/[address] Loredo, complicated by postoperat natalie anemia, dehydration, false positive covid19 test, admitted to TCU with debility, here for rehabilitation, strengthening, intravenous antibiotics, prior to discharge home alone. Discharge home alone 06/22/2022, No needs. Physical Exam Const alert General Appearance: cooperative HEENT normocephalic Eyes PERRL and EOMs intact bilaterally Neck supple, no JVD and no carotid bruits Resp normal respiratory effort, normal air movement and clear to auscultation bilaterally Cardio regular rate and regular rhythm GI normal to inspection, nondistended, normoactive bowel sounds, non-tender and non-distended Extremity normal capillary refill General Extremity: Negative for edema Skin no rashes or lesions noted General Skin Exam: no breakdown Psych affect normal Appearance: appropriate Weight / BMI Weight Weight: 99.654 kg Body Mass Index (BMI) 42.3 ABG / Lab / Microbiology Data Result Diagrams: 06/12/22 05:14 06/12/22 05:14 Microbiology: Microbiology 05/23/22 10:41 Nasal Secretion SARS-CoV-2 Antigen (Rapid) - Final SARS-CoV-2 (COVID 19) D/C Instructions Discharge Diet: No restrictions Discharge Activity: Return to Normal Activity, May Shower and Use Walker Weight Bearing Status: Weight bearing as tolerated Call your doctor if you observe: Fever of 101 or Higher, Inability to urinate, Inability to have a bowel movement, Shortness of breath, Dizziness, Fainting s pells, Swelling in the ankles, Chest pain and Uncontrolled pain Additional Instructions: Discharge home alone 06/22/2022, No needs. Please Follow Up With: Lewis Morales PA-C (will see Malcom Loredo MD) When: As scheduled. Meaningful Use Info Meaningful Use Diagnoses (Choose all that apply): None applicable Discharge Plan Admission Admit Date/Time: 05/21/22 20:16 Primary Reason for Your Visit: Debility. Attending Provider: Rasta Rankin Chi Primary Care Provider: Cheryl Russell Instructions Additional Instructions / Restrictions: Discharge home alone 06/22/2022, No needs. Discharge Orders/Prescriptions Prescriptions: New metoprolol succinate 100 mg Tablet Extended Release 24 Hr 100 mg PO DAILY 30 Days Qty: 30 0RF acetaminophen 500 mg Tablet 1,000 mg PO Q8 Qty: 0 0RF oxycodone 5 mg Tablet 5 - 10 mg PO Q4H PRN PRN (Reason: Pain Score 4-10) 7 Days Qty: 42 0RF Continued sertraline 100 MG tablet 100 mg PO DAILY amlodipine 2.5 MG tablet 2.5 mg PO DAILY omeprazole 40 MG capsule,delayed release(DR/EC) 40 mg PO DAILY cyanocobalamin (vitamin B-12) 500 MCG tablet 1,000 mcg PO DAILY@0800 hydrochlorothiazide 25 MG tablet 25 mg PO DAILY multivitamin with minerals 1 EACH tablet 1 tab PO DAILY calcium carbonate-vitamin D3 1 EACH tablet 1 tab PO 0800 melatonin 5 MG tablet 10 mg PO QHS PRN (Reason: Sleep) gabapentin 300 mg capsule 300 mg PO TIDCM Mag 64 64 mg tablet,delayed release (DR/EC) 64 mg PO DAILY pramipexole 0.5 mg tablet 1 mg PO QHS cholecalciferol (vitamin D3) 25 mcg (1,000 unit) Tablet 25 mcg PO DAILY meloxicam 7.5 mg Tablet 7.5 mg PO BID sennosides-docusate sodium [Stool Softener-Stimulant Laxat] 8.6-50 mg tablet 2 tab PO BID Rx Instructions: Take until first bowel movement, then as needed Discontinued acetaminophen 500 MG tablet 1,000 mg PO Q8H PRN (Reason: Pain) metoprolol succinate 50 mg tablet extended release 24 hr 100 mg PO DAILY aspirin 81 mg Tablet,Delayed Release (Dr/Ec) 81 mg PO BID Rx Instructions: Begin 05/25/22, after stopping Xarelto on 05/24/22. Take for 2 weeks. oxycodone 5 mg Tablet 5 - 10 mg PO Q4H PRN PRN (Reason: Pain Score 4-10) 5 Days Qty: 30 0RF ceftriaxone 2 gram recon soln 2 g IV DAILY Rx Instructions: stop date 06/21/22 dx: knee PJI weekly bmp, cbc, ESR, and vanc trough. Fax to [phone] routine picc care Xarelto 10 mg tablet 10 mg PO DAILY@0600 Rx Instructions: Continue and stop Xarelto on May 24, 2022. After stopping Xarelto continue with aspirin 81 mg twice daily for an additional 2 weeks Referrals / Follow Up: Chreyl Russell DO [Primary Care Provider] - Disposition Disposition (needs filled in before D/C Order can be placed): Home, Self Care
[2022-06-15 16:00] VITALS: BP 139/93; PULSE 81; RESP 17; TEMP 36.7; O2SAT 94
[2022-06-15] MEDS: Senna/Docusate Sodium 1 Tablet 2 TABLET PO (17:27)
[2022-06-15] MEDS: Pramipexole Di-HCl 1 MG Tablet PO (17:27)
[2022-06-15] MEDS: MELATONIN 10 MG TABLET PO (20:34)
[2022-06-16] MEDS: oxyCODONE 5 MG Tablet PO ×2 (02:11→16:21)
[2022-06-16] MEDS: Acetaminophen 500 MG Tablet 1000 MG PO ×3 (05:40→22:53)
[2022-06-16 05:41] VITALS: BP 144/83; PULSE 70
[2022-06-16] MEDS: Cholecalciferol (VIT D3) 25 MCG TABLET (1,000 UNITS) PO (05:41)
[2022-06-16] MEDS: Metoprolol(XL)Succ 100 MG Tablet PO (05:41)
[2022-06-16] MEDS: Sertraline 100 MG Tablet PO (05:41)
[2022-06-16] MEDS: Magnesium Chloride 64 MG Delay Rel.Tablet PO (05:41)
[2022-06-16] MEDS: hydroCHLOROthiazide 25 MG Tablet PO (05:42)
[2022-06-16] MEDS: Pantoprazole Sodium 40 MG Tablet PO (05:42)
[2022-06-16] MEDS: Meloxicam 7.5 MG Tablet PO ×2 (07:51→17:17)
[2022-06-16] MEDS: Multivitamins,Ther W-Minerals Tablet 1 TABLET PO (07:53)
[2022-06-16] MEDS: Calcium Carb/Vitamin D 1 TABLET Tablet PO (07:53)
[2022-06-16] MEDS: Cyanocobalamin 500 MCG Tablet 1000 MCG PO (07:54)
[2022-06-16] MEDS: amLODIPine 2.5 MG Tablet PO (07:55)
[2022-06-16] MEDS: Gabapentin 300 MG Capsule PO ×3 (08:00→17:16)
[2022-06-16 08:05] VITALS: BP 126/58; PULSE 82
[2022-06-16] MEDS: 0.9% Saline Lock 10 ML Syringe IV (10:22)
[2022-06-16 16:00] VITALS: BP 144/80; PULSE 84; RESP 18; TEMP 36.3; O2SAT 95
[2022-06-16] MEDS: Pramipexole Di-HCl 1 MG Tablet PO (17:17)
[2022-06-16 23:13] VITALS: PULSE 82; RESP 18
[2022-06-17] MEDS: oxyCODONE 5 MG Tablet PO (03:56)
[2022-06-17] MEDS: Pantoprazole Sodium 40 MG Tablet PO (06:05)
[2022-06-17] MEDS: Sertraline 100 MG Tablet PO (06:07)
[2022-06-17 06:08] VITALS: BP 126/78; PULSE 76
[2022-06-17] MEDS: Magnesium Chloride 64 MG Delay Rel.Tablet PO (06:08)
[2022-06-17] MEDS: hydroCHLOROthiazide 25 MG Tablet PO (06:08)
[2022-06-17] MEDS: Metoprolol(XL)Succ 100 MG Tablet PO (06:08)
[2022-06-17] MEDS: Cholecalciferol (VIT D3) 25 MCG TABLET (1,000 UNITS) PO (06:08)
[2022-06-17] MEDS: Acetaminophen 500 MG Tablet 1000 MG PO ×3 (06:09→21:15)
[2022-06-17] MEDS: 0.9% Saline Lock 10 ML Syringe IV ×2 (06:10→09:19)
[2022-06-17] MEDS: Cyanocobalamin 500 MCG Tablet 1000 MCG PO (08:09)
[2022-06-17] MEDS: Calcium Carb/Vitamin D 1 TABLET Tablet PO (08:09)
[2022-06-17] MEDS: Meloxicam 7.5 MG Tablet PO ×2 (08:10→17:23)
[2022-06-17] MEDS: amLODIPine 2.5 MG Tablet PO (08:10)
[2022-06-17] MEDS: Multivitamins,Ther W-Minerals Tablet 1 TABLET PO (08:10)
[2022-06-17] MEDS: Gabapentin 300 MG Capsule PO ×3 (08:13→17:22)
[2022-06-17 08:17] VITALS: BP 130/85; PULSE 77
[2022-06-17 10:15] VITALS: PULSE 77; RESP 18; O2SAT 93
--- NOTE | 2022-06-17 11:03 | NURSING ---
PT WILL BE GOING [facility] ON 06/18/22 FOR BROTHERS . 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 PT STATED SHE WILL NOT BE EATING BREAKFAST OR LUNCH HERE. FAMILY TO PICK PT UP.
[2022-06-17 15:12] VITALS: BP 137/86; PULSE 76; RESP 18; TEMP 36.2; O2SAT 96
[2022-06-17] MEDS: Pramipexole Di-HCl 1 MG Tablet PO (17:24)
[2022-06-17] MEDS: MELATONIN 10 MG TABLET PO (21:18)
[2022-06-18] MEDS: hydroCHLOROthiazide 25 MG Tablet PO (06:01)
[2022-06-18] MEDS: Acetaminophen 500 MG Tablet 1000 MG PO ×3 (06:01→21:51)
[2022-06-18] MEDS: Cholecalciferol (VIT D3) 25 MCG TABLET (1,000 UNITS) PO (06:01)
[2022-06-18] MEDS: Sertraline 100 MG Tablet PO (06:01)
[2022-06-18] MEDS: Pantoprazole Sodium 40 MG Tablet PO (06:01)
[2022-06-18 06:02] VITALS: BP 146/96; PULSE 85
[2022-06-18] MEDS: Metoprolol(XL)Succ 100 MG Tablet PO (06:02)
[2022-06-18] MEDS: Magnesium Chloride 64 MG Delay Rel.Tablet PO (06:02)
[2022-06-18] MEDS: Multivitamins,Ther W-Minerals Tablet 1 TABLET PO (06:02)
[2022-06-18] MEDS: Meloxicam 7.5 MG Tablet PO ×2 (06:03→18:50)
[2022-06-18] MEDS: amLODIPine 2.5 MG Tablet PO (06:03)
[2022-06-18] MEDS: Cyanocobalamin 500 MCG Tablet 1000 MCG PO (06:03)
[2022-06-18] MEDS: Calcium Carb/Vitamin D 1 TABLET Tablet PO (06:03)
[2022-06-18] MEDS: Gabapentin 300 MG Capsule PO ×3 (06:06→18:50)
[2022-06-18] MEDS: 0.9% Saline Lock 10 ML Syringe IV (06:07)
--- NOTE | 2022-06-18 06:19 | NURSING ---
Morning meds given early d/t pt leaving the facility for the morning. Confirmed w/ pharmacist.
[2022-06-18] MEDS: oxyCODONE 5 MG Tablet PO ×2 (06:38→16:42)
--- NOTE | 2022-06-18 07:32 | NURSING ---
Farzana left the facility at 0730 to attend her brothers .
[2022-06-18 16:00] VITALS: BP 137/84; PULSE 80; RESP 16; TEMP 36.6; O2SAT 97
[2022-06-18] MEDS: Pramipexole Di-HCl 1 MG Tablet PO (18:50)
--- NOTE | 2022-06-18 19:23 | PN.TCU_ITS ---
Subjective Subjective Resident seen, examined for regulatory visit. She returned from her brother's today. She is dressed up. No new problems, concerns, issues, complaints. She is looking forward to discharge at the end of the week. Objective Data Objective Data Vital Signs: Vital Signs Temp Pulse Resp BP Pulse Ox O2 Del Method 97.8 F 80 16 137/84 H 97 Room Air 06/18/22 16:00 06/18/22 16:00 06/18/22 16:00 06/18/22 16:00 06/18/22 16:00 06/18/22 16:00 Oxygen Delivery Method Room Air Weight: 99.654 kg Body Mass Index (BMI) 42.3 Intake & Output: Intake and Output for Last 24 Hours 06/16/22 06/17/22 06/18/22 23:59 23:59 23:59 Intake Total 770 / 770 1110 / 1110 Balance 770 / 770 1110 / 1110 Lab / Micro Data Result Diagrams: 06/12/22 05:14 06/12/22 05:14 Micro: Microbiology 05/23/22 10:41 Nasal Secretion SARS-CoV-2 Antigen (Rapid) - Final SARS-CoV-2 (COVID 19) Physical Exam Const alert General Appearance: cooperative HEENT normocephalic Eyes PERRL and EOMs intact bilaterally Neck supple, no JVD and no carotid bruits Resp normal respiratory effort, normal air movement and clear to auscultation bilate rally Cardio regular rate and regular rhythm GI normal to inspection, nondistended, normoactive bowel sounds, non-tender and non-distended Extremity normal capillary refill Extremity Narrative: Right upper extremity PICC line. General Extremity: Negative for edema Skin no rashes or lesions noted General Skin Exam: no breakdown Psych affect normal Appearance: appropriate Assessment & Plan Assessment/Plan (1) Debility: (2) Infection of prosthetic left knee joint: (3) Postoperative anemia: (4) Lab test positive for detection of COVID-19 virus: (5) Dehydration: (6) Hypertension: (7) Vitamin B12 deficiency: (8) Neuropathic pain: (9) Hypomagnesemia: (10) Insomnia: (11) GERD (gastroesophageal reflux disease): (12) Restless leg syndrome: (13) Depression: (14) Vitamin D deficiency: PLAN: Plan 77 year old female with below past medical history hospitalized for left prosthetic knee infection, status post left prosthetic knee explant with antibiotic spacer placement 05/10/[address] Loredo, complicated by postoperative anemia, dehydration, false positive covid19 test, admitted to TCU with debility, here for rehabilitation, strengthening, intravenous antibiotics, prior to discharge home alone. * Debility - PT/OT. * Pain - Tylenol 1000mg q8, Oxycodone 5-10mg q4h prn. * Bowel - Miralax 17gm daily, senna/colace 2 tablets bid. * Adult immunization - Administer pneumonia vaccine, covid19 vaccine, flu vaccine as appropriate. * DVT prophylaxis - Finished. * Hypertension - Metoprolol succinate 100mg daily, Amlodipine 2.5mg daily, HCTZ 25mg daily. * Calcium deficiency - Calcium D 1 tablet daily. * Left prosthetic knee infection s/p explant/antibiotic spacer - Ceftriaxone 2gm iv q24 thru 06/21/2022. * Vitamin B12 deficiency - B12 1000mcg daily. * Neuropathic pain - Gabapentin 300mg tidcm. * Hypomagnesemia - Magnesium chloride 64mg daily. * Insomnia - Melatonin 10mg qhs prn. * Osteoarthritis - Meloxicam 7.5mg bid. * Nutrition - MVI daily. * Restless leg syndrome - Mirapex 1mg qpm. * Depression - Sertraline 100mg daily, stable chronic penitentiary use, GDR not recommended. * Vitamin D deficiency - Vitamin D3 25mcg daily. * Skin irritation - Calmoseptine topical bid. * GERD - Pantoprazole 40mg daily. Capacity Capacity Assessment Tool Can the patient make a choice & communicate that choice?: Yes Can the patient understand benefits, risks and alternatives?: Yes Can the patient make a logical, rational choice?: Yes Is the choice the patient makes consistent w/ their values?: Yes Is there an impending, emergent risk to the patient?: No Does the patient have an Advance Directive?: Yes Is there a Surrogate Available?: Yes i.e. HCPOA: Yes i.e. close relative (spouse, child, parent, sibling)?: Yes
[2022-06-18 20:00] VITALS: PULSE 78; RESP 16; O2SAT 97
[2022-06-18] MEDS: MELATONIN 10 MG TABLET PO (21:51)
[2022-06-19 05:14] VITALS: BP 124/82; PULSE 72
[2022-06-19] MEDS: Acetaminophen 500 MG Tablet 1000 MG PO ×3 (05:14→20:39)
[2022-06-19] MEDS: Metoprolol(XL)Succ 100 MG Tablet PO (05:14)
[2022-06-19] MEDS: Magnesium Chloride 64 MG Delay Rel.Tablet PO (05:15)
[2022-06-19] MEDS: Sertraline 100 MG Tablet PO (05:15)
[2022-06-19] MEDS: hydroCHLOROthiazide 25 MG Tablet PO (05:15)
[2022-06-19] MEDS: Cholecalciferol (VIT D3) 25 MCG TABLET (1,000 UNITS) PO (05:15)
[2022-06-19] MEDS: Pantoprazole Sodium 40 MG Tablet PO (05:15)
[2022-06-19 05:36] LABS: Absolute Lymphocyte Count 1.14 X10^3/uL (0.83-4.51); Absolute Neutrophil Count 2.8 X10^3/uL (2.0-7.7); Basophil# 0.05 X10^3/uL; Eosinophils% 6.1 % (0-5); Hematocrit 34.5 % (37-47); Hemoglobin 10.6 g/dL (12.0-15.0); Lymphocyte # 1.14 X10^3/ul (0.83-4.51); Lymphocyte % 23.4 % (19-41); Mean Corp Hgb Conc 30.7 g/dL (32-36); Mean Corpuscular Volume 84.8 fL (81-99); Mean Platelet Vol. 9.5 fl (6.2-12.0); Monocyte% 12.3 % (0-10); NRBC Flagged by Analyzer 0 % (0-5); Neutrophil # 2.77 X10^3/uL (2.7-7.7); Neutrophil % 56.8 % (47-70); Platelet Count 137 K/mm3 (150-450); RBC Distribution Width CV 14.2 % (11.6-14.6); RBC Distribution Width SD 43.7 fl (35.1-43.9); Red Blood Count 4.07 M/mm3 (4.2-5.4); White Blood Count 4.9 K/mm3 (4.4-11.0)
[2022-06-19 05:59] LABS: Anion Gap 6 (5-15); BUN 20 mg/dL (7-18); Calcium,Total 9.3 mg/dL (8.5-10.1); Chloride 101 mmol/L (98-107); Creatinine, Serum 0.67 mg/dL (0.55-1.02); EST Glomerular Filtration Rate 91 mL/min (>60); Est Glom Filt Rate - Afr Amer 111 mL/min (>60); Estimated Creatinine Clearance 37.26 ml/min; Glucose 99 mg/dL (74-106); Potassium 4.1 mmol/L (3.5-5.1); Sodium Level 137 mmol/L (136-145)
[2022-06-19 06:16] LABS: Erythrocyte Sedimentation Rate 14 mm/hr (0-30)
[2022-06-19] MEDS: Multivitamins,Ther W-Minerals Tablet 1 TABLET PO (08:01)
[2022-06-19] MEDS: Calcium Carb/Vitamin D 1 TABLET Tablet PO (08:01)
[2022-06-19] MEDS: Meloxicam 7.5 MG Tablet PO ×2 (08:01→17:20)
[2022-06-19] MEDS: Cyanocobalamin 500 MCG Tablet 1000 MCG PO (08:02)
[2022-06-19] MEDS: Gabapentin 300 MG Capsule PO ×3 (08:06→17:19)
[2022-06-19] MEDS: oxyCODONE 5 MG Tablet PO ×2 (08:06→21:44)
[2022-06-19] MEDS: amLODIPine 2.5 MG Tablet PO (08:06)
[2022-06-19] MEDS: 0.9% Saline Lock 10 ML Syringe IV (09:28)
--- NOTE | 2022-06-19 10:17 | NURSING ---
AM LABS FAXED TO DR SHARP OFFICE.
[2022-06-19 16:00] VITALS: BP 144/84; PULSE 79; RESP 16; TEMP 36.2
[2022-06-19] MEDS: Pramipexole Di-HCl 1 MG Tablet PO (17:20)
[2022-06-19] MEDS: MELATONIN 10 MG TABLET PO (20:42)
[2022-06-20 05:37] VITALS: BP 170/99; PULSE 66
[2022-06-20] MEDS: Metoprolol(XL)Succ 100 MG Tablet PO (05:37)
[2022-06-20] MEDS: Cholecalciferol (VIT D3) 25 MCG TABLET (1,000 UNITS) PO (05:37)
[2022-06-20] MEDS: Magnesium Chloride 64 MG Delay Rel.Tablet PO (05:38)
[2022-06-20] MEDS: Acetaminophen 500 MG Tablet 1000 MG PO ×3 (05:38→20:34)
[2022-06-20] MEDS: hydroCHLOROthiazide 25 MG Tablet PO (05:38)
[2022-06-20] MEDS: Pantoprazole Sodium 40 MG Tablet PO (05:38)
[2022-06-20] MEDS: Sertraline 100 MG Tablet PO (05:38)
[2022-06-20] MEDS: Gabapentin 300 MG Capsule PO ×3 (08:02→17:27)
[2022-06-20] MEDS: Multivitamins,Ther W-Minerals Tablet 1 TABLET PO (08:03)
[2022-06-20] MEDS: Cyanocobalamin 500 MCG Tablet 1000 MCG PO (08:03)
[2022-06-20] MEDS: Calcium Carb/Vitamin D 1 TABLET Tablet PO (08:03)
[2022-06-20] MEDS: amLODIPine 2.5 MG Tablet PO (08:04)
[2022-06-20] MEDS: Meloxicam 7.5 MG Tablet PO ×2 (08:04→17:28)
[2022-06-20 08:07] VITALS: BP 148/98; PULSE 97
[2022-06-20] MEDS: 0.9% Saline Lock 10 ML Syringe IV (10:36)
[2022-06-20 14:49] VITALS: BP 146/80; PULSE 77; RESP 17; TEMP 36.8; O2SAT 94
[2022-06-20] MEDS: Pramipexole Di-HCl 1 MG Tablet PO (17:29)
[2022-06-20] MEDS: oxyCODONE 5 MG Tablet PO (20:34)
[2022-06-20] MEDS: MELATONIN 10 MG TABLET PO (20:35)
[2022-06-20 20:37] VITALS: O2SAT 97
[2022-06-21] MEDS: Sertraline 100 MG Tablet PO (05:32)
[2022-06-21] MEDS: Acetaminophen 500 MG Tablet 1000 MG PO ×3 (05:32→20:29)
[2022-06-21 05:33] VITALS: BP 143/86; PULSE 94
[2022-06-21] MEDS: Cholecalciferol (VIT D3) 25 MCG TABLET (1,000 UNITS) PO (05:33)
[2022-06-21] MEDS: hydroCHLOROthiazide 25 MG Tablet PO (05:33)
[2022-06-21] MEDS: Pantoprazole Sodium 40 MG Tablet PO (05:33)
[2022-06-21] MEDS: Magnesium Chloride 64 MG Delay Rel.Tablet PO (05:33)
[2022-06-21] MEDS: Metoprolol(XL)Succ 100 MG Tablet PO (05:33)
[2022-06-21] MEDS: Multivitamins,Ther W-Minerals Tablet 1 TABLET PO (07:58)
[2022-06-21] MEDS: Meloxicam 7.5 MG Tablet PO ×2 (07:58→18:15)
[2022-06-21] MEDS: Cyanocobalamin 500 MCG Tablet 1000 MCG PO (07:59)
[2022-06-21] MEDS: Calcium Carb/Vitamin D 1 TABLET Tablet PO (07:59)
[2022-06-21] MEDS: amLODIPine 2.5 MG Tablet PO (07:59)
[2022-06-21] MEDS: Gabapentin 300 MG Capsule PO ×3 (08:02→18:14)
[2022-06-21 08:06] VITALS: BP 140/91; PULSE 102
[2022-06-21] MEDS: oxyCODONE 5 MG Tablet PO ×2 (09:52→20:31)
[2022-06-21] MEDS: 0.9% Saline Lock 10 ML Syringe IV (09:58)
[2022-06-21 10:30] VITALS: PULSE 92; RESP 18; O2SAT 96
--- NOTE | 2022-06-21 13:08 | MDS.RN ---
Pain interview for LEANNE 06/22/22
--- NOTE | 2022-06-21 13:55 | NURSING ---
PHARMACY BROUGHT UP PT MEDS TO TAKE HOME TOMORROW. MEDS ARE LOCKED UP IN PT MED BOX IN ROOM. PT PLANS ON LEAVING TOMORROW 06/22/22 AROUND 10AM.
[2022-06-21 14:27] VITALS: BP 116/79; PULSE 76; RESP 18; TEMP 36.2; O2SAT 98
--- NOTE | 2022-06-21 16:15 | CASEMGMT ---
Social Work BIMS () and PHQ-9 () completed for MDS assessment. Sophia Whittington MSW INDIVIDUAL SMALL GROUP INSTRUCTOR
[2022-06-21] MEDS: Pramipexole Di-HCl 1 MG Tablet PO (18:15)
--- NOTE | 2022-06-21 23:28 | NURSING ---
Patient educated on order for PICC discontinuation, A&Ox3, verbalized understanding. PICC discontinued as ordered per facility policy, site pink, no edema, no heat, no drainage. Patient tolerated well. Petroleum ointment applied, covered with sterile gauze and sterile dressing applied to site. PICC intact, length 43cm upon removal. Patient tolerated well, no distress observed or reported. Denies requests. Call light in reach.
[2022-06-22] MEDS: Acetaminophen 500 MG Tablet 1000 MG PO (05:55)
[2022-06-22 05:56] VITALS: BP 154/90; PULSE 85
[2022-06-22] MEDS: Cholecalciferol (VIT D3) 25 MCG TABLET (1,000 UNITS) PO (05:56)
[2022-06-22] MEDS: hydroCHLOROthiazide 25 MG Tablet PO (05:56)
[2022-06-22] MEDS: Metoprolol(XL)Succ 100 MG Tablet PO (05:56)
[2022-06-22] MEDS: Sertraline 100 MG Tablet PO (05:56)
[2022-06-22] MEDS: Pantoprazole Sodium 40 MG Tablet PO (05:56)
[2022-06-22] MEDS: Magnesium Chloride 64 MG Delay Rel.Tablet PO (05:56)
[2022-06-22 06:54] VITALS: O2SAT 96
[2022-06-22 06:57] VITALS: BP 154/90; PULSE 85; RESP 16; TEMP 36.6; O2SAT 96
[2022-06-22] MEDS: Gabapentin 300 MG Capsule PO (08:04)
[2022-06-22] MEDS: amLODIPine 2.5 MG Tablet PO (08:05)
[2022-06-22] MEDS: Calcium Carb/Vitamin D 1 TABLET Tablet PO (08:06)
[2022-06-22] MEDS: Meloxicam 7.5 MG Tablet PO (08:06)
[2022-06-22] MEDS: Multivitamins,Ther W-Minerals Tablet 1 TABLET PO (08:06)
[2022-06-22] MEDS: Cyanocobalamin 500 MCG Tablet 1000 MCG PO (08:07)
[2022-06-22 08:37] VITALS: BP 137/98; PULSE 90; RESP 18; TEMP 36.4; O2SAT 96
== END 2022-06-22 09:30 | disposition home or self-care (01) | DRG 950 ==
PROVIDERS: Admitting Provider Family Medicine Geriatric Medicine; PCP Internal Medicine; Visit Provider Family Medicine Geriatric Medicine
DX: T84.54XD Infection and inflammatory reaction due to internal left knee prosthesis, subsequent encounter (principal); D64.9 Anemia, unspecified; I10 Essential (primary) hypertension; K21.9 Gastro-esophageal reflux disease without esophagitis; E55.9 Vitamin D deficiency, unspecified; M19.90 Unspecified osteoarthritis, unspecified site; E53.8 Deficiency of other specified B group vitamins; G25.81 Restless legs syndrome; G62.9 Polyneuropathy, unspecified; Z87.891 Personal history of nicotine dependence; Y79.2 Prosthetic and other implants, materials and accessory orthopedic devices associated with adverse incidents; F32.A Depression, unspecified; Z79.899 Other long term (current) drug therapy; Z79.82 Long term (current) use of aspirin
CPT/HCPCS: 36415; 80048; 85014; 85018; 85025; 85652; 87426; 87635; 97110; 97116; 97162; 97166; 97530; 97535; 97802; J7050; A4216; J0696; U0003; U0005

== ENCOUNTER → 2022-07-02 | Outpatient (CLI) | payer MEDICARE, SELFPAY ==
[2022-07-02 15:17] LABS: Absolute Lymphocyte Count 1.99 X10^3/uL (0.83-4.51); Absolute Neutrophil Count 3.9 X10^3/uL (2.0-7.7); Basophil# 0.06 X10^3/uL; Basophil% 0.9 % (0-1); Eosinophil# 0.13 X10^3/uL; Eosinophils% 1.9 % (0-5); Hemoglobin 12.9 g/dL (12.0-15.0); Lymphocyte # 1.99 X10^3/ul (0.83-4.51); Lymphocyte % 29.5 % (19-41); Mean Corp Hgb Conc 31.5 g/dL (32-36); Mean Corpuscular Hgb 25.9 pg (27.0-32.0); Mean Corpuscular Volume 82.3 fL (81-99); Mean Platelet Vol. 9.6 fl (6.2-12.0); Monocyte# 0.61 X10^3/uL; Monocyte% 9.1 % (0-10); NRBC Flagged by Analyzer 0 % (0-5); Neutrophil # 3.93 X10^3/uL (2.7-7.7); Neutrophil % 58.3 % (47-70); Platelet Count 222 K/mm3 (150-450); RBC Distribution Width CV 14.3 % (11.6-14.6); RBC Distribution Width SD 42.4 fl (35.1-43.9); Red Blood Count 4.98 M/mm3 (4.2-5.4); White Blood Count 6.7 K/mm3 (4.4-11.0)
[2022-07-02 15:26] LABS: Erythrocyte Sedimentation Rate 30 mm/hr (0-30)
[2022-07-02 15:39] LABS: CRP < 2.90 mg/L (0.0-3.0)
== END | disposition home or self-care (01) ==
PROVIDERS: PCP Internal Medicine; Referring Provider Specialist; Visit Provider Specialist
DX: T84.54XD Infection and inflammatory reaction due to internal left knee prosthesis, subsequent encounter (principal)
CPT/HCPCS: 36415; 85025; 85652; 86140

== ENCOUNTER → 2022-07-16 | Outpatient (CLI) | payer MEDICARE, SELFPAY ==
[2022-07-16 12:32] LABS: Absolute Lymphocyte Count 1.31 X10^3/uL (0.83-4.51); Absolute Neutrophil Count 3.2 X10^3/uL (2.0-7.7); Basophil# 0.04 X10^3/uL; Basophil% 0.8 % (0-1); Eosinophil# 0.12 X10^3/uL; Eosinophils% 2.3 % (0-5); Hematocrit 37.9 % (37-47); Hemoglobin 12.1 g/dL (12.0-15.0); Lymphocyte # 1.31 X10^3/ul (0.83-4.51); Mean Corp Hgb Conc 31.9 g/dL (32-36); Mean Corpuscular Hgb 26.1 pg (27.0-32.0); Mean Corpuscular Volume 81.9 fL (81-99); Mean Platelet Vol. 9.7 fl (6.2-12.0); Monocyte# 0.51 X10^3/uL; Monocyte% 9.8 % (0-10); NRBC Flagged by Analyzer 0 % (0-5); Neutrophil # 3.24 X10^3/uL (2.7-7.7); Neutrophil % 61.9 % (47-70); Platelet Count 178 K/mm3 (150-450); RBC Distribution Width CV 14.1 % (11.6-14.6); RBC Distribution Width SD 41.5 fl (35.1-43.9); Red Blood Count 4.63 M/mm3 (4.2-5.4); White Blood Count 5.2 K/mm3 (4.4-11.0)
[2022-07-16 12:38] LABS: Erythrocyte Sedimentation Rate 11 mm/hr (0-30)
[2022-07-16 12:55] LABS: CRP 3.12 mg/L (0.0-3.0)
== END | disposition home or self-care (01) ==
PROVIDERS: PCP Internal Medicine; Referring Provider Specialist; Visit Provider Specialist
DX: T84.54XD Infection and inflammatory reaction due to internal left knee prosthesis, subsequent encounter (principal); Z96.652 Presence of left artificial knee joint
CPT/HCPCS: 36415; 85025; 85652; 86140

== ENCOUNTER 2022-08-08 07:18 | Inpatient (IN) | payer MEDICARE, SELFPAY ==
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
[2022-08-08] VITALS (12 sets, daily range): BP systolic 97–143; BP diastolic 53–100; PULSE 66–93; RESP 16–20; TEMP 36.2–37.1; O2SAT 93–100; BMI 40.7
[2022-08-08] MEDS: Lactated Ringers 1,000 ML 15 ML IV ×2 (07:30→11:00)
[2022-08-08] MEDS: Magnesium 1 GM over 15 mins IV (07:55)
[2022-08-08] MEDS: Gabapentin 600 MG Tablet PO (08:13)
[2022-08-08] MEDS: Celecoxib 200 MG Capsule 400 MG PO (08:13)
[2022-08-08] MEDS: Acetaminophen 500 MG Tablet 1000 MG PO ×3 (08:14→21:12)
--- NOTE | 2022-08-08 08:41 | PCM.OPRPT ---
Report of Operation Date of Procedure: 08/08/22 Pre-Operative Diagnosis: Left knee periprosthetic joint infection, failed total knee replacement Post-Operative Diagnosis: Left knee periprosthetic joint infection, failed total knee replacement Surgery/Procedure Performed:: Left knee revision total knee replacement entire femoral and tibial components Left knee removal of nonbiodegradable antibiotic delivery system Description of Surgical Findings:: No gross signs of infection. Stable knee with good patella tracking. Surgeon: Malcom Loredo strawhat sizer: Lewis Morales Type of Anesthesia: Spinal Anesthesiologist: Fantasma [place] Special Medications: 2 g Ancef, 1 g TXA at incision, 1 g TXA closure, 10 mg Decadron, joint cocktail (5 mg Duramorph, 30 mL of 0.5% Ropivicaine, 1000 units of epinephrine, 30 mg of Toradol) Specimen's removed: 3 separate specimens were sent to microbiology Estimated Blood Loss (mL): 100 Fluids Replaced: 1800 mm crystalloid Description of Procedure: Implants used: Femur: Santiago size 3 total stabilized distal femoral triathlon component with 100 x 15 mm cemented stem and 10 mm distal augments medially and laterally. Tibia: Hercules size 3 universal tibial baseplate with 15 x 50 mm cemented stem and size B cone Poly: Santiago X3 size 3 total stabilized 22 mm tibial implant Patella: Hercules press-fit 32 mm asymmetric X3 patella. Brief history operative indications: 77-year-old female with previous total knee replacement. 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 An temporary total knee implant and articulating spacer was placed and the wound was debrided. Patient completed 6 weeks of IV antibiotics. She has been ambulating with weightbearing restrictions and range of motion as tolerated. She has shown clearance of the infection at this point after completing antibiotics and an antibiotic holiday without recurrent elevation of her inflammatory lab work. Based on this we elected to proceed with a revision total knee replacement. Risk and benefits of the procedure were discussed the patient including recurrent infection, blood loss, DVTs, PEs, nervous damage, infection, the risk of anesthesia including loss of life. Patient understands recurrent infection can lead to loss of limb as well if infection is not clear. Intraoperative fractures and other injuries are also potentially possible. Patient demonstrates understanding wishes to proceed. Procedure: On the date of procedure patient's left lower extremity was marked in the preoperative area. The patient was then taken back to the operating room where the patient was placed on the table in the supine position. All bony prominences were identified a well-padded. Anesthesia assumed control of the C-spine and airway and remained controlled throughout the remainder of the procedure. A tourniquet was placed on the left upper thigh and the leg was prepped in a sterile fashion. The surgeon then scrubbed at this time. Upon reentering the room LEFt lower extremity was draped in a standard orthopedic fashion. A timeout was then called and everyone agreed upon the side, the site, the procedure to be performed, patient's identity and antibiotics given. An Esmarch bandage was used to exsanguinate the extremity and the tourniquet was placed up to 250 mmHg with the knee in flexion. A midline skin incision was made using the previous incision and extending it proximally and distally to identify normal tissue planes. Medial and lateral flaps were developed appropriate releases. The standard medial parapatellar arthrotomy was made and the patella was subluxed laterally. At this time an aggressive synovectomy was performed re-creating the medial gutter first, then the suprapatellar pouch than the lateral gutter. Once this was completed the knee was flexed up an osteotome was used to remove the tibial polyethylene. The remainder of the synovium was debrided. The standard deep MCL release was done and the patella scar pad was resected and lateral releases were performed. Next our attention was directed to the femur. Wear flexible osteotomes and TPS saw were used to break up the implant cement interface. This was done both medially and laterally. After this is adequately lucent bone tamp was used to remove the femur component from the end of the bone. This was done with minimal bone loss. At this time attention was now directed towards the proximal tibia. Possible osteotome and TPS saw were then used to break up the proximal tibia implant interface and stacked osteotomes were used to remove the tibial implant. This was done with minimal bone loss. Our attention was then turned to the tibia where the intramedullary canal was reamed to 18mm and intramedullary tibial cutting guide was used to make the appropriate tibial cut 90 degrees from the mechanical axis. A drop donna was then used to verify the cut. A size 3 tibial base plate was selected. Tibia was reamed for a size B tibial cone. The knee was flexed and the tibial component was pinned into place and the boss reamer was used to ream the proximal medullary canal. The trial implant was impacted in its prepared position. Our attention was then turned back to the femur or the femur intramedullary canal was reamed to 16 mm and the intramedullary reamer was used as a cutting guide to make our distal femoral cut. Distal femoral was made using the standard GamerDNA medial epicondyle guide to set the joint line. Cleanup cut was made we knew we would need a 10 augment medially, and 10 augment laterally. Using the previous femoral component and tibial component as a guide the size 3 4-in-1 femoral cutting guide was pinned into place in the appropriate rotation. Rotation was based on the medial epicondyles and tibial cut. Once this was pinned in place anterior cut, anterior chamfer cut, posterior cut and posterior chamfer cuts were made. Based on these cuts we knew we would need a 0 augment medially, and 0 augment laterally. The box cutting guide was then pinned into place and the box cut was made using a reciprocating saw. The appropriate trials were then placed on the femur and tibia. A trial polyethylene was trialed to ensure proper balancing and stability of the knee. Patella tracking, was then verified and corrected appropriately as needed. Our attention was then directed to the patella. Patella was everted. Membrane was cleared off the patella and a cleanup cut was made. We then prepared the patella for a 32 mm press-fit patella. Patellar tracking was again checked and deemed appropriate. Final components were verified and opened, 6 liters of normal saline were irrigated throughout the joint under low-pressure lavage. Then the cement was mixed in a vacuum. Santiago Simplex cement with tobramycin was used. The wound was copiously irrigated with normal saline. When the cement was ready the components were cemented into place starting with the tibia, femur. The trial poly component was placed and the knee was placed in full extension. All excess cement was removed in the process. Once the cement had cured the tracking, alignment and balance were verified and a size 22 mm TS polyethylene component was placed. After the TS implant was placed the patella button was press-fit in place. Once the final components were placed a 3-minute dilute Betadine lavage followed by 1 minute chlorhexidine lavage was performed. Then, the wound was copiously irrigated with normal saline solution and the remainder of the periarticular injection was given. The wound was closed in a layer ontiveros fashion using #1 vicryl interrupted sutures for the arthrotomy, 2-0 interrupted Vicryl for the subcuticular layer and ariana for final skin closure. A sterile compressive dressing was then placed. The patient was then awakened from anesthesia, transferred to the [facility] and transferred to the PACU for recovery. Post op plan DVT ppx: ASA 81mg BID, thigh high compression stockings Follow up: in office in 2 weeks for wound check PT: to start POD #0 at hospital, outpatient PT should be arranged. Patient will be on doxycycline 2 weeks postoperatively as we follow cultures. Previous infection was susceptible to tetracycline. My physician marketing communications assistant was a vital part of this case. He was important in appropriate retraction during the case, and protection of soft tissues during bony cuts. His intimate knowledge of the case and my steps aided in safe and expedient completion of the procedure as well as appropriate position of the leg during the case. He was also vital in assisting with closure under my direct supervision. Complications No intraoperative complications Admit VTE Documentation VTE Present on Admission: No VTE Mechan Device Prophylaxis: SCD's and Thigh High RAISSA Hose VTE Pharm Prophylaxis ordered?: Yes
[2022-08-08] MEDS: Cefazolin 2 GM in 0.9% Normal Saline 100 ML IV (10:01)
[2022-08-08] MEDS: TXA 1000mg in NS100 100ml (IVPB at Incision) 660 MG IV (10:05)
[2022-08-08] MEDS: dexAMETHasone 10 MG/ML Vial IV (10:08)
[2022-08-08] MEDS: TXA 1000mg in NS100 100ml (IVPB at Closure) 660 MG IV (12:13)
--- NOTE | 2022-08-08 13:16 | RAD_ITS ---
STUDY: X-RAY - LEFT KNEE REASON FOR EXAM: Female, 77 years old. Post op -- AP and Lateral xray of operative knee in PACU TECHNIQUE: 2 view(s) of the knee. COMPARISON: Comparison is made with prior study 05/10/2022. FINDINGS: The patient is status post total knee replacement of the restraint type. There is good alignment. Postoperative soft tissue changes. RAD/Knee 1 or 2 Views IMPRESSION: Status post total knee replacement of the restraining type. There is good alignment. Postoperative soft tissue changes. Electronically Signed: Ck Gilliland MD at 13:51 EST ,
--- NOTE | 2022-08-08 14:07 | PN.HOSP_ITS ---
Reason for Visit Reason for Visit: Left knee osteoarthritis Subjective Subjective Mrs. Servin is a 77-year-old white female who was admitted electively on 08/08/2022 for removal of antibiotic spacer of the left knee with revision of left total knee arthroplasty. She had a previous knee arthroplasty done on 10/23/2021 and had pain and postoperative difficulty walking. She went through normal postoperative physical therapy and had an inflammatory work-up and aspiration which was consistent with infection. The left knee joint was removed and placement of an antibiotic spacer was performed. She was placed on 6 weeks of IV antibiotics by infectious disease. Her inflammatory lab work had been improving and she was seen by orthopedic surgery again who cleared her for removal of the antibiotic spacer and revision of her left knee arthroplasty. She also with history of right total knee arthroplasty done in May 2021. Her last total knee arthroplasty resulted in need for transitional care unit after surgery. She does live at home alone at baseline. We have been consulted postoperatively for medical management of her hypertension, GERD, restless leg syndrome, and depression. Patient states she is feeling well at this time. Plans for discharge are to TCU. Placed and has been there before. Patient does have Medicare advantage plan therefore will need pre-CERT prior to discharge. No complaints at this time. Objective Data Objective Data Vital Signs: Vital Signs Temp Pulse Resp BP Pulse Ox O2 Del Method O2 Flow Rate 97.4 F L 69 17 126/70 H 93 Nasal Cannula 4 08/08/22 13:00 08/08/22 13:45 08/08/22 13:45 08/08/22 13:45 08/08/22 13:45 08/08/22 13:45 08/08/22 13:45 Oxygen Flow Rate (L/min) 4 Oxygen Delivery Method Nasal Cannula Weight: 101 kg Body Mass Index (BMI) 40.7 Intake & Output: Intake and Output for Last 24 Hours 08/06/22 08/07/22 08/08/22 23:59 23:59 23:59 Intake Total 860 / 860 Balance 860 / 860 Lab / Micro Data Micro: Microbiology 08/01/22 16:09 Swab (Method) Nasal Screen MRSA/MSSA - Final Radiography Diagnostic Testing: Radiology Impression Knee X-Ray 08/08/22 13:16 IMPRESSION: Status post total knee replacement of the restraining type. There is good alignment. Postoperative soft tissue changes. Electronically Signed: Ck Gilliland MD at 13:51 EST , Physical Exam Const alert, oriented x3, no apparent distress, healthy appearing and well nourished Constitutional Narrative: Morbidly obese, white female, watching television and playing [employer] on her phone, appears comfortable and nontoxic HEENT head/scalp atraumatic and moist oral mucous membranes HEENT Narrative: Mallampati 3, no thrush Head and Scalp: normocephalic Resp normal respiratory effort, no retractions, no use of accessory muscles and clear to auscultation bilaterally Auscultation: Negative for rales, rhonchi or wheezes Cardio regular rate, regular rhythm, S1 normal heart sound, S2 normal heart sound, no murmurs, no rub, no gallops and no clicks GI normal to inspection, nondistended, normoactive bowel sounds, soft to palpation, non-tender and non-distended Extremity no clubbing, cyanosis or edema Extremity Narrative: Left lower extremity with polar ice and RAISSA hose in place, postop dressing in place without any sign of drainage Neuro oriented x3, moves all extremities and no focal motor deficits Speech: speech normal Psych affect normal Psych Narrative: Very talkative, very pleasant Assessment & Plan Assessment/Plan (1) Osteoarthritis of right knee: PLAN: Plan Right knee osteoarthritis -Management per primary -Pain medicine per primary -Recommend bowel regimen -Anticipate will need placement at discharge as patient does live alone -PT/OT consultations Hypertension -Continue home metoprolol while 100 mg daily -Continue home hydrochlorothiazide 25 mg daily -Continue home amlodipine 2.5 mg daily GERD -Continue PPI Restless leg syndrome -Continue home Requip Chronic pain -Continue home chronic pain medication as appropriate Insomnia -Continue home melatonin DVT prophylaxis -Per primary service Disposition: Patient with no acute medical needs at this time. We will sign off. Sign off discussed via text PENELOPE Muñoz for Dr. Loredo. Please do not hesitate to contact us with any acute issues. Patient will likely be going to TCU at discharge and pre-CERT will need to be obtained prior to this. Charges/Coding Visit Charges Inpatient E&M: 84624 Subs Hosp L2
[2022-08-08] MEDS: Lactated Ringers 1,000 ML 999 ML IV (14:14)
[2022-08-08] MEDS: Lactated Ringers 1,000 ML 125 ML IV (16:33)
[2022-08-08] MEDS: Ensure Surgery 237 ML LIQUID PO (16:38)
[2022-08-08] MEDS: Gabapentin 300 MG Capsule PO ×2 (16:38→21:20)
[2022-08-08] MEDS: Cefazolin 1 GM/50 ML BAG IV (17:50)
[2022-08-08] MEDS: MELATONIN 10 MG TABLET PO (21:12)
[2022-08-08] MEDS: Aspirin 81 MG TAB.CHEW PO (21:12)
[2022-08-08] MEDS: Pramipexole Di-HCl 1 MG Tablet PO (21:12)
[2022-08-08] MEDS: oxyCODONE 5 MG Tablet PO (23:26)
[2022-08-09] VITALS (8 sets, daily range): BP systolic 95–143; BP diastolic 56–66; PULSE 59–85; RESP 16–20; TEMP 36.4–36.8; O2SAT 93–99; BMI 40.7
[2022-08-09] MEDS: Cefazolin 1 GM/50 ML BAG IV (02:41)
[2022-08-09] MEDS: oxyCODONE 5 MG Tablet PO ×5 (05:13→20:03)
[2022-08-09] MEDS: Acetaminophen 500 MG Tablet 1000 MG PO ×3 (05:18→21:32)
[2022-08-09 06:15] LABS: Hematocrit 29.3 % (37-47); Hemoglobin 9.3 g/dL (12.0-15.0); Mean Corp Hgb Conc 31.7 g/dL (32-36); Mean Corpuscular Hgb 25.8 pg (27.0-32.0); Mean Corpuscular Volume 81.2 fL (81-99); Mean Platelet Vol. 8.8 fl (6.2-12.0); Platelet Count 130 K/mm3 (150-450); RBC Distribution Width CV 14.6 % (11.6-14.6); RBC Distribution Width SD 43.4 fl (35.1-43.9); Red Blood Count 3.61 M/mm3 (4.2-5.4); White Blood Count 8.2 K/mm3 (4.4-11.0)
[2022-08-09 07:02] LABS: Anion Gap 6 (5-15); BUN 18 mg/dL (7-18); BUN/Creat Ratio 30.1 RATIO (10-20); Calcium,Total 8.9 mg/dL (8.5-10.1); Chloride 103 mmol/L (98-107); EST Glomerular Filtration Rate 103 mL/min (>60); Est Glom Filt Rate - Afr Amer 125 mL/min (>60); Estimated Creatinine Clearance 37.26 ml/min; Glucose 121 mg/dL (74-106); Potassium 4.4 mmol/L (3.5-5.1); Sodium Level 137 mmol/L (136-145)
--- NOTE | 2022-08-09 10:08 | PN.ORTHO_ITS ---
Subjective Subjective The patient was sitting in bedside chair upon examination. Patient denies any chest pain, shortness of breath, dizziness, lightheadedness, nausea or vomiting, or calf pain. Pain is controlled on medications. No adverse overnight events. Patient just finished formal therapy and states she has increased pain. She is waiting on pain medications at this time. Denies any shortness of breath or chest pain. Denies calf pain. She is starting to have some minimal pain associated on the right knee. She does have previous right total knee arthroplasty with patella fracture. Objective Data Objective Data Vital Signs: Vital Signs Temp Pulse Resp BP Pulse Ox O2 Del Method O2 Flow Rate 97.8 F 63 20 H 112/66 94 Room Air 4 08/09/22 07:29 08/09/22 07:29 08/09/22 07:29 08/09/22 07:29 08/09/22 07:29 08/09/22 07:29 08/08/22 14:30 Oxygen Flow Rate (L/min) 4 Oxygen Delivery Method Room Air Weight: 101 kg Body Mass Index (BMI) 40.7 Intake & Output: Intake and Output for Last 24 Hours 08/07/22 08/08/22 08/09/22 23:59 23:59 23:59 Intake Total 4312 / 4612 1350 / 1350 Balance 4312 / 4612 1350 / 1350 Lab / Micro Data Result Diagrams: 08/09/22 06:00 08/09/22 06:00 Labs: Laboratory Results - last 24 hr 08/09/22 06:00: WBC 8.2, RBC 3.61 L, Hgb 9.3 L, Hct 29.3 L, MCV 81.2, MCH 25.8 L , MCHC 31.7 L, RDW Std Deviation 43.4, RDW Coeff of Rufino 14.6, Plt Count 130 L, MPV 8.8 08/09/22 06:00: Sodium 137, Potassium 4.4, Chloride 103, Carbon Dioxide 28.0, Anion Gap 6, BUN 18, Creatinine 0.60, Estim Creat Clear Calc 37.26, Est GFR (MDRD) Af Amer 125, Est GFR (MDRD) Non-Af 103, BUN/Creatinine Ratio 30.1 H, Glucose 121 H, Calcium 8.9 Micro: Microbiology 08/08/22 10:31 Tissue - Tibial Membrane Wound Culture - Preliminary No growth-Final to follow 08/08/22 10:29 Tissue - Femoral Membrane Wound Culture - Preliminary No growth-Final to follow 08/08/22 10:24 Tissue - Suprapatellar Pouch Wound Culture - Preliminary No growth-Final to follow 08/01/22 16:09 Swab (Method) Nasal Screen MRSA/MSSA - Final Radiography Diagnostic Testing: Radiology Impression Knee X-Ray 08/08/22 13:16 IMPRESSION: Status post total knee replacement of the restraining type. There is good alignment. Postoperative soft tissue changes. Electronically Signed: Ck Gilliland MD at 13:51 EST , Physical Exam Narrative Vital signs stable and afebrile. SCDs and RAISSA hose are in place bilaterally Patient is able to plantarflex and dorsiflex actively. Sensation is intact to light touch to saphenous, sural, superficial and deep peroneal, and tibial distribution. Trace drainage on middle one third of the Mepilex dressing and remaining dressing clean dry and intact. Negative Homans bilaterally, negative signs and symptoms of DVT. Const alert, oriented x3 and no apparent distress Assessment & Plan Assessment/Plan (1) Status post revision of total replacement of left knee: PLAN: 1. S/P left knee removal antibiotic spacer with left knee revision total knee arthroplasty POD #1 2. Continue Pain Medications: Tylenol, meloxicam, oxycodone 3. DVT Prophylaxis: Take 81 mg aspirin twice daily for 4 weeks postoperatively for DVT prophylaxis. Patient denies past history of DVT or pulmonary embolism 4. PT/OT: Weightbearing as tolerated with walker. Appreciate recommendations for discharge planning. 5. H & H: 9.3/29.3, asymptomatic. Postoperative anemia secondary to acute blood loss from surgery without any intra operative complications and possible dilutional component. Preoperatively patient was at 12.1/37.9. Estimated blood loss from surgery 100 mL. Patient will be placed on ferrous sulfate and folic acid and we will repeat CBC tomorrow. 6. Continue antibiotics while following cultures: Currently on doxycycline for 2 weeks postoperatively. There is been no growth currently on wound cultures and Gram stains are pending. We will continue to follow. 7. Continue postoperative medical management per medicine: Case was discussed with medicine and they will currently sign off at this time and we will contact them with any complications. 8. Encouraged Incentive Spirometry 9. Disposition: Patient does report she lives home alone. She has had increased pain after the initial physical therapy this morning. Appreciate recommendations from physical therapy and Occupational Therapy with regards to postoperative discharge planning. Case management is currently involved. Patient has been to the transitional care unit at [facility] after her previous surgeries. We are attempting for pre-CERT for transitional care unit postoperatively to continue rehabilitation of the revision left total knee arthroplasty. New order for ferrous sulfate and folic acid will be placed. Will recheck CBC tomorrow. Continue to follow cultures of the left knee wound. I have reviewed the [place] Automated Rx Reporting System (OARRS) report for this patient for refill pattern and other prescriber involvement as part of the appropriate surveillance for the provision of acute and chronic controlled medications. The report was requested and reviewed on the date of this entry and was considered in the prescribing process. This dictation was created using voice recognition software. Phonetic and/or grammatical errors may exist.
[2022-08-09] MEDS: Metoprolol(XL)Succ 100 MG Tablet PO (10:18)
[2022-08-09] MEDS: amLODIPine 2.5 MG Tablet PO (10:18)
[2022-08-09] MEDS: hydroCHLOROthiazide 25 MG Tablet PO (10:18)
[2022-08-09] MEDS: Sertraline 100 MG Tablet PO (10:18)
[2022-08-09] MEDS: Aspirin 81 MG TAB.CHEW PO ×2 (10:19→17:45)
[2022-08-09] MEDS: Cholecalciferol (VIT D3) 25 MCG TABLET (1,000 UNITS) PO (10:19)
[2022-08-09] MEDS: Calcium Carb/Vitamin D 1 TABLET Tablet PO (10:19)
[2022-08-09] MEDS: Pantoprazole Sodium 40 MG Tablet PO (10:19)
[2022-08-09] MEDS: Famotidine 20 MG Tablet PO (10:19)
[2022-08-09] MEDS: Multivitamins,Ther W-Minerals Tablet 1 TABLET PO (10:19)
[2022-08-09] MEDS: Cyanocobalamin 500 MCG Tablet 1000 MCG PO (10:19)
[2022-08-09] MEDS: Gabapentin 300 MG Capsule PO ×3 (10:23→17:46)
[2022-08-09] MEDS: Ensure Surgery 237 ML LIQUID PO ×3 (10:24→17:45)
--- NOTE | 2022-08-09 11:17 | CASEMGMT ---
Social Work SW to room to meet with patient for initial transition planning/care coordination assessment. SWintroduced self and role at [facility]. Pt voices understanding and consents to assessment. Pt resting in chair and in no distress at this time. Pt is A/O answers all questions appropriately. Care providers, pharmacy, and demographics verified/updated. PCP: Drew Specialists: dari Loredo Pharmacy: [facility] for [facility] term, [facility] Insurance: [employer] MCR Prescription Benefit: Yes Living Will/HPOA: Yes living will and HCPOA naming dgt Anais Churchill. Both documents are on file. LNOK: Daughter Anais Churchill Living Arrangements: Pt lives in a one story home alone, one step to enter. Prior to admission for planned surgery pt was Independent with all care needs. Transportation: Pt has not been able to drive since April. Pt relies on friends and neighbors to assist with transportation. DME: Walker, rollator, high rise toilet, built in shower seat with grab bars HHC/SNF: Previously in TCU and previous home health. PLAN: Pt states that living alone and pain is a limiting factor in returning home at this time and pt feels she would benefit from short term stay at TCU prior to return home. KYMBERLY reviewed therapy notes with pt and possibility that insurance will not approve SNF as she did well with therapy this morning. Pt continues to feel she needs to go to TCU. KYMBERLY offered pt A list of SNF providers including quality and resource use data and consistent with the patient?s preferred geographic region, medical needs, and insurance network from the [employer] Guide and pt declines stating she has been to TCU before and will not consider going anywhere else. KYMBERLY encouraged pt to make a back up plan in the event that insurance denies admission to TCU. KYMBERLY collaborated with PENELOPE Saucedo, who is requesting precert be tried. KYMBERLY spoke with Yudith in TCU and they do have beds available. Precert to be started. ASAD Sosa
[2022-08-09] MEDS: Ferrous Sulfate 325 MG Tablet PO ×2 (14:14→17:45)
[2022-08-09] MEDS: Ketorolac 15 MG/ML Vial IV (14:23)
[2022-08-09] MEDS: 0.9% Saline Lock 10 ML Syringe IV (14:23)
[2022-08-09] MEDS: Doxycycline 100 MG CAPSULE PO (21:32)
[2022-08-09] MEDS: MELATONIN 10 MG TABLET PO (21:32)
[2022-08-09] MEDS: Pramipexole Di-HCl 1 MG Tablet PO (21:33)
[2022-08-10] MEDS: oxyCODONE 5 MG Tablet PO ×6 (00:34→23:27)
[2022-08-10 02:40] VITALS: BP 143/75; PULSE 63; RESP 20; TEMP 36.8; O2SAT 95
[2022-08-10] MEDS: Acetaminophen 500 MG Tablet 1000 MG PO ×3 (05:21→21:49)
--- NOTE | 2022-08-10 06:48 | PN.ORTHO_ITS ---
Subjective Subjective The patient was sitting in bed upon examination. Patient denies any chest pain, shortness of breath, dizziness, lightheadedness, nausea or vomiting, or calf pain. Pain is controlled on medications. No adverse overnight events. Patient does complain of pain in her left knee particularly when up and walking. The oxycodone is helpful. She attempted IV Toradol which she did not feel was very helpful. We are waiting on possible pre-CERT to the transitional care unit at [facility]. Patient does live home alone. She is working with physical therapy while in the hospital. Objective Data Objective Data Vital Signs: Vital Signs Temp Pulse Resp BP Pulse Ox O2 Del Method O2 Flow Rate 98.2 F 63 20 H 143/75 H 95 Room Air 4 08/10/22 02:40 08/10/22 02:40 08/10/22 02:40 08/10/22 02:40 08/10/22 02:40 08/10/22 02:40 08/08/22 14:30 Oxygen Flow Rate (L/min) 4 Oxygen Delivery Method Room Air Weight: 101 kg Body Mass Index (BMI) 40.7 Intake & Output: Intake and Output for Last 24 Hours 08/08/22 08/09/22 08/10/22 23:59 23:59 23:59 Intake Total 4312 / 4612 1700 / 1999 300 / 300 Balance 4312 / 4612 1700 / 2000 300 / 300 Lab / Micro Data Result Diagrams: 08/09/22 06:00 08/09/22 06:00 Labs: Laboratory Results - last 24 hr 08/09/22 06:00: Sodium 137, Potassium 4.4, Chloride 103, Carbon Dioxide 28.0, Anion Gap 6, BUN 18, Creatinine 0.60, Estim Creat Clear Calc 37.26, Est GFR (MDRD) Af Amer 125, Est GFR (MDRD) Non-Af 103, BUN/Creatinine Ratio 30.1 H, Glucose 121 H, Calcium 8.9 Micro: Microbiology 08/08/22 10:31 Tissue - Tibial Membrane Gram Stain - Final 08/08/22 10:31 Tissue - Tibial Membrane Wound Culture - Preliminary No growth-Final to follow 08/08/22 10:29 Tissue - Femoral Membrane Gram Stain - Final 08/08/22 10:29 Tissue - Femoral Membrane Wound Culture - Preliminary No growth-Final to follow 08/08/22 10:24 Tissue - Suprapatellar Pouch Gram Stain - Final 08/08/22 10:24 Tissue - Suprapatellar Pouch Wound Culture - Preliminary No growth-Final to follow 08/01/22 16:09 Swab (Method) Nasal Screen MRSA/MSSA - Final Physical Exam Narrative Vital signs stable and afebrile. SCDs and RAISSA hose in place bilaterally Patient is able to plantarflex and dorsiflex actively. Sensation is intact to light touch to saphenous, sural, superficial and deep per marshall, and tibial distribution. There has been some mild progression of the drainage over the distal one third. Drainage does contact 2 borders. Remaining dressing is clean dry and intact. Negative Homans bilaterally, negative signs and symptoms of DVT. Const alert, oriented x3 and no apparent distress Assessment & Plan Assessment/Plan (1) Status post revision of total replacement of left knee: PLAN: 1. S/P left knee removal antibiotic spacer with left knee revision total knee arthroplasty POD #2 2. Continue Pain Medications: Tylenol, meloxicam, oxycodone 3. DVT Prophylaxis: Take 81 mg aspirin twice daily for 4 weeks postoperatively for DVT prophylaxis. Patient denies past history of DVT or pulmonary embolism 4. PT/OT: Weightbearing as tolerated with walker. Appreciate recommendations for discharge planning. 5. H & H: Lab drawl just occurred while I was in the room, waiting on results, asymptomatic. Postoperative anemia secondary to acute blood loss from surgery without any intra operative complications and possible dilutional component. Preoperatively patient was at 12.1/37.9. Estimated blood loss from surgery 100 mL. Patient will be placed on ferrous sulfate and folic acid. I do recommend upon discharge repeat CBC at the transitional care unit or with primary care physician in 1 to 2 weeks. 6. Continue antibiotics while following cultures: Currently on doxycycline for 2 weeks postoperatively. There has been no growth currently on wound cultures and Gram stains are pending. We will continue to follow. 7. Continue postoperative medical management per medicine: Case was discussed with medicine yesterday and they will currently sign off at this time and we will contact them with any complications. Patient has remained medically stable. 8. Encouraged Incentive Spirometry 9. Disposition: At this time we are waiting on pre-CERT from insurance for disc harge to possible transitional care unit at [facility]. Patient is aware that there is a possibility if they do not approve her she will have to consider other facilities or possible home with home health physical therapy. I will have medications on chart and ready for possible discharge to the transitional care unit. Continue with physical therapy while on MedSurg unit. Continue with above pain medications. Patient will continue with the doxycycline while we follow cultures postoperatively. There is been no growth. Patient does have 2-week postoperative follow-up with [facility] [place] already scheduled. At that time x-rays and sutures will be removed. She will contact her office upon discharge with any concerns or questions. I have reviewed the [place] Automated Rx Reporting System (OARRS) report for this patient for refill pattern and other prescriber involvement as part of the appropriate surveillance for the provision of acute and chronic controlled medications. The report was requested and reviewed on the date of this entry an d was considered in the prescribing process. This dictation was created using voice recognition software. Phonetic and/or grammatical errors may exist.
[2022-08-10 06:49] LABS: Hematocrit 29.2 % (37-47); Hemoglobin 9.1 g/dL (12.0-15.0); Mean Corp Hgb Conc 31.2 g/dL (32-36); Mean Corpuscular Hgb 25.1 pg (27.0-32.0); Mean Corpuscular Volume 80.4 fL (81-99); Mean Platelet Vol. 9.5 fl (6.2-12.0); Platelet Count 137 K/mm3 (150-450); RBC Distribution Width CV 14.9 % (11.6-14.6); RBC Distribution Width SD 43.6 fl (35.1-43.9); Red Blood Count 3.63 M/mm3 (4.2-5.4); White Blood Count 6.5 K/mm3 (4.4-11.0)
--- NOTE | 2022-08-10 06:53 | TREXTCAR_ITS ---
Diet Diet Order/Speech Therapy: 08/08/22 15:49 Diet: Regular - General Is pt able to select menu?: Yes Routine Orders/Code Status Routine Lab Work: CBC (Recommend CBC in 1 week for continued follow-up and of postoperative anemia) Wound(s) LEFT KNEE: Wound Type: Surgical Incision Therapies Weight Bearing: Weight bearing as tolerated (With walker on left lower extremity) Extremity Affected:: Left Lower (Revision left total knee arthroplasty with removal of antibiotic spacer) Physical Therapy: Eval and Treat Occupational Therapy: Eval and Treat Problem/Diagnosis (1) Status post revision of total replacement of left knee: Status: Acute Code(s): Z96.652 - Presence of left artificial knee joint Plan: (1) Status post revision of total replacement of left knee: PLAN: 1) Status post revision of total replacement of left knee: PLAN: 1.? S/P left knee removal antibiotic spacer with left knee revision total knee arthroplasty POD #6 2.? Continue Pain Medications: Tylenol, meloxicam, oxycodone 3.? DVT Prophylaxis: Take 81 mg aspirin twice daily for 4 weeks postoperatively for DVT prophylaxis.? Patient denies past history of DVT or pulmonary embolism 4.? PT/OT: Weightbearing as tolerated with walker.? Appreciate recommendations for discharge planning.? Patient has walked 225 feet with physical therapy yesterday. 5.? H & H: Yesterday results were 9.2/30.1, asymptomatic.? Postoperative anemia secondary to acute blood loss from surgery without any intra operative complications. ? She will continue with the ferrous sulfate and folic acid.? Discussed with the patient possible follow-up with her primary care physician for continued management upon discharge 6.? Continue antibiotics while following cultures: Currently on doxycycline for 2 weeks postoperatively.? There has been no growth currently on wound cultures and Gram stains are pending.? We will continue to follow. 7.? Continue postoperative medical management per medicine: Patient has remained medically stable.? Will contact medicine with any concerns. 8.? Encouraged Incentive Spirometry 9.? Postoperative incision and drainage: Prevena wound VAC in place with no drainage in tubing or canister.? We will continue with wound VAC over the next 1 week.? Explained to the patient that she will remove the Prevena wound VAC on her own on August 20, 2022.? If the battery would over the weekend she is to remove the dressing at that time.? She is not allowed to get this wet.? Once removed she can shower and get the incision wet. 10.? Disposition: At this time we are waiting on pre-CERT from insurance for discharge to possible transitional care unit at [facility].? We did not hear back from insurance at this time.? Patient has been walking 225 feet with physical therapy.? Patient has been orthopedically stable and the only reason for continued stay is waiting on insurance.? She has been tolerating physical therapy.? Patient is aware that there is a possibility if they do not approve her she will have to consider other facilities or possible home with home health physical therapy.? I again discussed with the patient the possibility of being discharged home with home health physical therapy versus outpatient physical therapy.? I will have medications on chart and ready for possible discharge to the transitional care unit.? Continue with physical therapy while on MedSurg unit.? Continue with above pain medications.? Patient will continue with the doxycycline while we follow cultures postoperatively.? There is been no growth.? Patient does have 2-week postoperative follow-up with [facility] already scheduled.? At that time x-rays and sutures will be removed.? Prevena incisional wound VAC will be removed on her own on August 20, 2022.? She was instructed to keep this clean and dry and not get wet.? I will call back in later today to discuss with medical social worker with regards to discharge planning.? We are still waiting on pre-CERT from insurance.? We will also review lab work once obtained.? May recommend 2- week follow-up with primary care physician for continued management of anemia.? Lab order will be placed on chart. I have reviewed the [place] Automated Rx Reporting System (OARRS) report for this patient for refill pattern and other prescriber involvement as part of the appropriate surveillance for the provision of acute and chronic controlled medications.? The report was requested and reviewed on the date of this entry and was considered in the prescribing process. This dictation was created using voice recognition software.? Phonetic and/or grammatical errors may exist. Allergies/Procedures Done in Hospital Allergies No Known Allergies Allergy (Verified 08/08/22 08:01) Procedures: Wound Vac placement (Continue with Prevena incisional wound VAC until August 20, 2022. Do not leave on any longer than August 20) and - (Left revision total knee arthroplasty with removal of antibiotic spacer on August 08, 2022) Type of Care/Length of Stay Estimated LOS: Convalescent Care Less Than 30 days Type of Care Needed: Skilled Rehab Potential: Good Prognosis: Good Additional Orders/Day of Discharge Day of Discharge: 08/14/22 Discharge Plan Admission Admit Date/Time: 08/08/22 07:18 Attending Provider: Malcom Loredo Primary Care Provider: Cheryl Russell Consulting Providers: Radha Patel ; Prashant Armstrong Discharge Orders/Prescriptions Prescriptions: New doxycycline monohydrate 100 mg Capsule 100 mg PO BID 12 Days Qty: 24 0RF Rx Instructions: Take for 2 weeks postoperatively while following cultures ferrous sulfate [FeroSul] 325 mg (65 mg iron) Tablet 325 mg PO 1200,1700 14 Days Qty: 28 0RF aspirin 81 mg Tablet,Chewable 81 mg PO BIDCM 30 Days Qty: 60 0RF Rx Instructions: Take 81 mg aspirin twice daily for 4 weeks postoperatively for DVT prophylaxis. folic acid 1 mg Tablet 1 mg PO BREAKFAST 14 Days Qty: 14 0RF oxycodone 5 mg Tablet 5 - 10 mg PO Q4H PRN PRN (Reason: Pain Score 4-10) 5 Days Qty: 60 0RF Continued sertraline 100 MG tablet 100 mg PO DAILY amlodipine 2.5 MG tablet 2.5 mg PO DAILY omeprazole 40 MG capsule,delayed release(DR/EC) 40 mg PO DAILY cyanocobalamin (vitamin B-12) 500 MCG tablet 1,000 mcg PO DAILY@0800 hydrochlorothiazide 25 MG tablet 25 mg PO DAILY multivitamin with minerals 1 EACH tablet 1 tab PO DAILY calcium carbonate-vitamin D3 1 EACH tablet 1 tab PO 0800 melatonin 5 MG tablet 10 mg PO QHS gabapentin 300 mg capsule 300 mg PO TIDCM Mag 64 64 mg tablet,delayed release (DR/EC) 64 mg PO DAILY pramipexole 0.5 mg tablet 1 mg PO QHS cholecalciferol (vitamin D3) 25 mcg (1,000 unit) Tablet 25 mcg PO DAILY meloxicam 7.5 mg Tablet 7.5 mg PO BID sennosides-docusate sodium [Stool Softener-Stimulant Laxat] 8.6-50 mg tablet 2 tab PO BID PRN (Reason: Constipation) Rx Instructions: Take until first bowel movement, then as needed oxycodone 5 mg Tablet 5 - 10 mg PO Q4H PRN PRN (Reason: Pain Score 4-10) 7 Days Qty: 42 0RF metoprolol succinate 100 mg tablet extended release 24 hr 100 mg PO DAILY acetaminophen 500 mg tablet 1,000 mg PO Q8 Other Ambulatory Orders: CBC-Complete Blood Cnt No Diff (Routine) Timeframe: 2 Weeks Facility: [facility] - Location: Laboratory Ordered By: Lewis NEGRETE Referrals / Follow Up: Cheryl Russell DO [Primary Care Provider] - (follow up in 1-2 weeks for follow up with Anemia) Lewis Morales PA-C [Med Staff - Adv Practice Prof] - 08/23/22 2:45 pm Disposition Disposition (needs filled in before D/C Order can be placed): Home, Self Care
--- NOTE | 2022-08-10 07:02 | DCINST_ITS ---
Discharge Instructions Diet Discharge Diet: No restrictions Activity Discharge Activity: May Not Drive (while taking narcotic pain medications.) May shower in (days): 1 (Please turn dressing away from water. Okay to get wet as long as dressing is intact to skin.) Ice area for (Minutes): 20 (Every 1-2 hours while awake. [address] place barrier between the skin and ice pack.) Weight Bearing Status: Weight bearing as tolerated (With walker) Keep extremity elevated above heart level: Operative Extremity Dressing / Incision Call your doctor if your incision/area has: Continuous Slow Oozing, Sudden Increased Bleeding, Increased Pain/ Swelling, Increased Redness and Foul Smelling Discharge Call your doctor if you observe: Fever of 101 or Higher, Coldness, Increased Pain, Numbness or Tingling, Change in Color, Shortness of breath, Chest pain, Calf discomfort and Uncontrolled pain Remove Dressing in: do not remove dressing (Continue with Prevena incisional wound VAC and remove dressing on your own on August 20, 2022. If battery dies over the weekend okay to remove dressing at that time.) Additional Dressing/Incision Instructions:: Follow [facility] Post-op Instructions. Once postoperative dressing has been removed only use gentle soap and water over the incision. Do not use any ointments, Neosporin, salves, alcohol pads over the incision for 6 weeks postoperatively. Do not submerge underwater for 6 weeks postoperatively. Continue with RAISSA hose/elastic stockings for 2 weeks postoperatively. May remove at nighttime but needs to be placed back on the leg during the day. Do NOT use alcohol with narcotic pain medication. Do NOT make important decisions while taking narcotic medication. If you have problems with taking your medication (rash, itching, nausea, etc.) call the office at once. Follow Up Care Test Results: Test results from this visit will be discussed in further detail at your follow- up appointment, if applicable. Discharge Plan Admission Admit Date/Time: 08/08/22 07:18 Attending Provider: Malcom Loredo Primary Care Provider: Cheryl Russell Consulting Providers: Radha Patel ; Prashant Armstrong Discharge Orders/Prescriptions Prescriptions: New doxycycline monohydrate 100 mg Capsule 100 mg PO BID 12 Days Qty: 24 0RF Rx Instructions: Take for 2 weeks postoperatively while following cultures ferrous sulfate [FeroSul] 325 mg (65 mg iron) Tablet 325 mg PO 1200,1700 14 Days Qty: 28 0RF aspirin 81 mg Tablet,Chewable 81 mg PO BIDCM 30 Days Qty: 60 0RF Rx Instructions: Take 81 mg aspirin twice daily for 4 weeks postoperatively for DVT prophylaxis. folic acid 1 mg Tablet 1 mg PO BREAKFAST 14 Days Qty: 14 0RF oxycodone 5 mg Tablet 5 - 10 mg PO Q4H PRN PRN (Reason: Pain Score 4-10) 5 Days Qty: 60 0RF Continued sertraline 100 MG tablet 100 mg PO DAILY amlodipine 2.5 MG tablet 2.5 mg PO DAILY omeprazole 40 MG capsule,delayed release(DR/EC) 40 mg PO DAILY cyanocobalamin (vitamin B-12) 500 MCG tablet 1,000 mcg PO DAILY@0800 hydrochlorothiazide 25 MG tablet 25 mg PO DAILY multivitamin with minerals 1 EACH tablet 1 tab PO DAILY calcium carbonate-vitamin D3 1 EACH tablet 1 tab PO 0800 melatonin 5 MG tablet 10 mg PO QHS gabapentin 300 mg capsule 300 mg PO TIDCM Mag 64 64 mg tablet,delayed release (DR/EC) 64 mg PO DAILY pramipexole 0.5 mg tablet 1 mg PO QHS cholecalciferol (vitamin D3) 25 mcg (1,000 unit) Tablet 25 mcg PO DAILY meloxicam 7.5 mg Tablet 7.5 mg PO BID sennosides-docusate sodium [Stool Softener-Stimulant Laxat] 8.6-50 mg tablet 2 tab PO BID PRN (Reason: Constipation) Rx Instructions: Take until first bowel movement, then as needed oxycodone 5 mg Tablet 5 - 10 mg PO Q4H PRN PRN (Reason: Pain Score 4-10) 7 Days Qty: 42 0RF metoprolol succinate 100 mg tablet extended release 24 hr 100 mg PO DAILY acetaminophen 500 mg tablet 1,000 mg PO Q8 Other Ambulatory Orders: CBC-Complete Blood Cnt No Diff (Routine) Timeframe: 2 Weeks Facility: [facility] - Location: Laboratory Ordered By: Lewis NEGRETE Referrals / Follow Up: Cheryl Russell DO [Primary Care Provider] - Lewis Morales PA-C [Med Staff - Counts Include [facility] Practice Prof] - 08/23/22 2:45 pm Disposition Disposition (needs filled in before D/C Order can be placed): Home, Self Care
[2022-08-10 07:51] VITALS: BP 108/64; PULSE 65; RESP 18; TEMP 36.6; O2SAT 93
[2022-08-10] MEDS: Ensure Surgery 237 ML LIQUID PO ×3 (07:54→17:28)
[2022-08-10] MEDS: Folic Acid 1 MG Tablet PO (07:54)
[2022-08-10] MEDS: Aspirin 81 MG TAB.CHEW PO ×2 (07:55→17:21)
[2022-08-10] MEDS: Pantoprazole Sodium 40 MG Tablet PO (07:55)
[2022-08-10] MEDS: Multivitamins,Ther W-Minerals Tablet 1 TABLET PO (07:55)
[2022-08-10 07:57] VITALS: PULSE 65
[2022-08-10] MEDS: Sertraline 100 MG Tablet PO (07:57)
[2022-08-10] MEDS: Metoprolol(XL)Succ 100 MG Tablet PO (07:57)
[2022-08-10] MEDS: Famotidine 20 MG Tablet PO (07:57)
[2022-08-10] MEDS: Calcium Carb/Vitamin D 1 TABLET Tablet PO (07:58)
[2022-08-10] MEDS: Cyanocobalamin 500 MCG Tablet 1000 MCG PO (07:58)
[2022-08-10] MEDS: amLODIPine 2.5 MG Tablet PO (07:58)
[2022-08-10] MEDS: hydroCHLOROthiazide 25 MG Tablet PO (07:58)
[2022-08-10] MEDS: Meloxicam 7.5 MG Tablet PO ×2 (07:58→21:50)
[2022-08-10] MEDS: Cholecalciferol (VIT D3) 25 MCG TABLET (1,000 UNITS) PO (07:58)
[2022-08-10] MEDS: Doxycycline 100 MG CAPSULE PO ×2 (07:58→21:50)
[2022-08-10] MEDS: Gabapentin 300 MG Capsule PO ×3 (08:06→17:28)
[2022-08-10] MEDS: Senna/Docusate Sodium 1 Tablet 2 TABLET PO (08:06)
--- NOTE | 2022-08-10 11:36 | CASEMGMT ---
Social Work SW spoke with Yudith in TCU and insurance has not yet made determination. SW met with pt and reviewed pt's progress in therapy. SW spoke with pt that insurance may likely deny as pt is doing well. Pt continues to state she feels she needs continued stay in TCU for further rehab and does not want to return home alone at this time. Pt states if she is denied stay, she will go home with home health but at this time will not discharge until determination by insurance is made. SW will continue to follow. Plan: TCU, pending precASAD Santacruz
[2022-08-10] MEDS: Ferrous Sulfate 325 MG Tablet PO ×2 (12:54→17:21)
[2022-08-10 14:38] VITALS: BP 109/58; PULSE 76; RESP 18; TEMP 36.9; O2SAT 96
--- NOTE | 2022-08-10 15:25 | CASEMGMT ---
Social Work SW spoke with Yudith in TCU and determination has not been made by insurance at this time. Yudith to all the unit if precert is obtained over the weekend. KYMBERLY met with pt and updated. Pt understanding. PENELOPE Saucedo updated. ASAD Montanez
--- NOTE | 2022-08-10 15:49 | CHAPLAIN ---
Type of Pastoral Visit _x__ Initial Visit ___ Follow-up Visit ___ On-call Visit ___ General Patient Visit ___ Spiritual Assessment ___ Family Conference ___ Bereavement ___ Rapid Response ___ Code Blue ___ Other (describe below) Pastoral Care Referral From _x__ Patient ___ Family ___ Nurse ___ Physician ___ Jukebox Checker ___ Associate Dentist ___ Other (describe below) Sacrament/Intervention _x__ Active listening ___ Anointing ___ Moravian ___ Bereavement ___ Communion ___ Leti exploration ___ _x__ Life review _x__ Prayer ___ Reconciliation ___ Sacrament of Sick ___ Supportive presence ___ Wedding ___ Other (describe below) Pastoral Comments patient has been seen many times in previous admission; pt is recovering from surgery and waiting on determination for rehab; pt is talkative and welcomes spiritual care support and prayer
[2022-08-10] MEDS: 0.9% Saline Lock 10 ML Syringe IV (17:29)
[2022-08-10] MEDS: Pramipexole Di-HCl 1 MG Tablet PO (21:50)
[2022-08-10] MEDS: MELATONIN 10 MG TABLET PO (21:50)
[2022-08-10 21:55] VITALS: BP 120/82; PULSE 69; RESP 16; TEMP 36.8; O2SAT 100
[2022-08-11 03:00] VITALS: BP 112/66; PULSE 68; RESP 18; TEMP 36.7; O2SAT 99
[2022-08-11] MEDS: Acetaminophen 500 MG Tablet 1000 MG PO ×3 (05:55→22:44)
[2022-08-11] MEDS: oxyCODONE 5 MG Tablet PO ×5 (05:55→22:45)
[2022-08-11 08:46] VITALS: BP 109/73; PULSE 70; RESP 18; TEMP 36.5; O2SAT 96
[2022-08-11] MEDS: Aspirin 81 MG TAB.CHEW PO ×2 (08:58→16:59)
[2022-08-11] MEDS: Folic Acid 1 MG Tablet PO (08:58)
[2022-08-11 08:59] VITALS: PULSE 70
[2022-08-11] MEDS: Multivitamins,Ther W-Minerals Tablet 1 TABLET PO (08:59)
[2022-08-11] MEDS: Calcium Carb/Vitamin D 1 TABLET Tablet PO (08:59)
[2022-08-11] MEDS: Cholecalciferol (VIT D3) 25 MCG TABLET (1,000 UNITS) PO (08:59)
[2022-08-11] MEDS: Sertraline 100 MG Tablet PO (08:59)
[2022-08-11] MEDS: amLODIPine 2.5 MG Tablet PO (08:59)
[2022-08-11] MEDS: hydroCHLOROthiazide 25 MG Tablet PO (08:59)
[2022-08-11] MEDS: Cyanocobalamin 500 MCG Tablet 1000 MCG PO (08:59)
[2022-08-11] MEDS: Metoprolol(XL)Succ 100 MG Tablet PO (08:59)
[2022-08-11] MEDS: Pantoprazole Sodium 40 MG Tablet PO (08:59)
[2022-08-11] MEDS: Famotidine 20 MG Tablet PO (09:00)
[2022-08-11] MEDS: Meloxicam 7.5 MG Tablet PO ×2 (09:00→22:44)
[2022-08-11] MEDS: Doxycycline 100 MG CAPSULE PO ×2 (09:00→22:43)
[2022-08-11] MEDS: Gabapentin 300 MG Capsule PO ×3 (09:06→16:59)
--- NOTE | 2022-08-11 09:55 | PCM.PN.ORT ---
Subjective Subjective The patient was sitting in bed side chair upon examination. Patient denies any chest pain, shortness of breath, dizziness, lightheadedness, nausea or vomiting, or calf pain. Pain is controlled on medications. No adverse overnight events. Patient states she fell behind on her pain meds yesterday. She does get some burning sensation in the knee. When she takes the pain medications it is helpful. She has been tolerating therapy. We are still waiting on insurance for pre-CERT to the transitional care unit. Objective Data Objective Data Vital Signs: Vital Signs Temp Pulse Resp BP Pulse Ox O2 Del Method O2 Flow Rate 97.7 F L 70 18 109/73 96 Room Air 4 08/11/22 08:46 08/11/22 08:59 08/11/22 08:46 08/11/22 08:46 08/11/22 08:46 08/11/22 08:50 08/08/22 14:30 Oxygen Flow Rate (L/min) 4 Oxygen Delivery Method Room Air Weight: 101 kg Body Mass Index (BMI) 40.7 Intake & Output: Intake and Output for Last 24 Hours 08/09/22 08/10/22 08/11/22 23:59 23:59 23:59 Intake Total 0 1999 1550 / 1550 Balance 1700 1999 1550 / 1550 Lab / Micro Data Result Diagrams: 08/10/22 06:41 08/09/22 06:00 Micro: Microbiology 08/08/22 10:31 Tissue - Tibial Membrane Gram Stain - Final 08/08/22 10:31 Tissue - Tibial Membrane Wound Culture - Final No growth aerobically. 08/08/22 10:31 Tissue - Tibial Membrane Anaerobic Culture - Preliminary No growth in 48 hours. 08/08/22 10:29 Tissue - Femoral Membrane Gram Stain - Final 08/08/22 10:29 Tissue - Femoral Membrane Wound Culture - Final No growth aerobically. 08/08/22 10:29 Tissue - Femoral Membrane Anaerobic Culture - Preliminary No growth in 48 hours. 08/08/22 10:24 Tissue - Suprapatellar Pouch Gram Stain - Final 08/08/22 10:24 Tissue - Suprapatellar Pouch Wound Culture - Final No growth aerobically. 08/08/22 10:24 Tissue - Suprapatellar Pouch Anaerobic Culture - Preliminary No growth in 48 hours. 08/01/22 16:09 Swab (Method) Nasal Screen MRSA/MSSA - Final Physical Exam Narrative Vital signs stable and afebrile. SCDs and RAISSA hose are in place bilaterally Patient is able to plantarflex and dorsiflex actively. Sensation is intact to light touch to saphenous, sural, superficial and deep peroneal, and tibial distribution. There is stable drainage over the distal one third which has not increased contacting 2 borders with the remaining dressing is clean dry and intact. Negative Homans bilaterally, negative signs and symptoms of DVT. Const alert, oriented x3 and no apparent distress Assessment & Plan Assessment/Plan (1) Status post revision of total replacement of left knee: PLAN: 1. S/P left knee removal antibiotic spacer with left knee revision total knee arthroplasty POD #3 2. Continue Pain Medications: Tylenol, meloxicam, oxycodone 3. DVT Prophylaxis: Take 81 mg aspirin twice daily for 4 weeks postoperatively for DVT prophylaxis. Patient denies past history of DVT or pulmonary embolism 4. PT/OT: Weightbearing as tolerated with walker. Appreciate recommendations for discharge planning. 5. H & H: Postoperative anemia secondary to acute blood loss from surgery without any intra operative complications. Hemoglobin has been stable with yesterday at 9.1. Plan will be for repeat CBC on Saturday, August 13, 2022. She will continue with the ferrous sulfate and folic acid. 6. Continue antibiotics while following cultures: Currently on doxycycline for 2 weeks postoperatively. There has been no growth currently on wound cultures and Gram stains are pending. We will continue to follow. 7. Continue postoperative medical management per medicine: Patient has remained medically stable. Will contact medicine with any concerns. 8. Encouraged Incentive Spirometry 9. Disposition: At this time we are waiting on pre-CERT from insurance for discharge to possible transitional care unit at [facility]. Patient has been orthopedically stable and the only reason for continued stay is waiting on insurance. She has been tolerating physical therapy. Patient is aware that there is a possibility if they do not approve her she will have to consider other facilities or possible home with home health physical therapy. I again discussed with the patient the possibility of being discharged home with home health physical therapy versus outpatient physical therapy. I will have medications on chart and ready for possible discharge to the transitional care unit. Continue with physical therapy while on MedSur unit. Continue with above pain medications. Patient will continue with the doxycycline while we follow cultures postoperatively. There is been no growth. Patient does have 2-week postoperative follow-up with [facility] already scheduled. At that time x-rays and sutures will be removed. I have reviewed the [place] Automated Rx Reporting System (OARRS) report for this patient for refill pattern and other prescriber involvement as part of the appropriate surveillance for the provision of acute and chronic controlled medications. The report was requested and reviewed on the date of this entry and was considered in the prescribing process. This dictation was created using voice recognition software. Phonetic and/or grammatical errors may exist.
[2022-08-11] MEDS: Ensure Surgery 237 ML LIQUID PO ×2 (12:00→16:59)
[2022-08-11] MEDS: Ferrous Sulfate 325 MG Tablet PO ×2 (12:00→16:59)
[2022-08-11 14:40] VITALS: BP 138/69; PULSE 70; RESP 17; TEMP 36.9; O2SAT 96
[2022-08-11 21:00] VITALS: BP 103/65; PULSE 74; RESP 16; TEMP 37.1; O2SAT 97
[2022-08-11] MEDS: Pramipexole Di-HCl 1 MG Tablet PO (22:43)
[2022-08-11] MEDS: MELATONIN 10 MG TABLET PO (22:43)
[2022-08-12 03:00] VITALS: BP 113/60; PULSE 63; RESP 17; TEMP 36.6; O2SAT 97
[2022-08-12] MEDS: Acetaminophen 500 MG Tablet 1000 MG PO ×3 (05:06→21:22)
--- NOTE | 2022-08-12 08:48 | PN.ORTHO_ITS ---
Subjective Subjective The patient was sitting in bedside chair eating breakfast upon examination. Patient denies any chest pain, shortness of breath, dizziness, lightheadedness, nausea or vomiting, or calf pain. Pain is controlled on medications. No adverse overnight events. Patient states as long as she stays consistent with her pain medications her pain has been well controlled. She has been tolerating physical therapy. We have not heard back from insurance over the weekend and decision will most likely be made tomorrow August 13, 2022 with regards to discharge to transitional care unit. Objective Data Objective Data Vital Signs: Vital Signs Temp Pulse Resp BP Pulse Ox O2 Del Method O2 Flow Rate 97.8 F 63 17 113/60 97 Room Air 4 08/12/22 03:00 08/12/22 03:00 08/12/22 03:00 08/12/22 03:00 08/12/22 03:00 08/12/22 03:00 08/08/22 14:30 Oxygen Flow Rate (L/min) 4 Oxygen Delivery Method Room Air Weight: 101 kg Body Mass Index (BMI) 40.7 Intake & Output: Intake and Output for Last 24 Hours 08/10/22 08/11/22 08/12/22 23:59 23:59 23:59 Intake Total 1550 / 1550 Balance 1550 / 1550 Lab / Micro Data Result Diagrams: 08/10/22 06:41 08/09/22 06:00 Micro: Microbiology 08/08/22 10:31 Tissue - Tibial Membrane Gram Stain - Final 08/08/22 10:31 Tissue - Tibial Membrane Wound Culture - Final No growth aerobically. 08/08/22 10:31 Tissue - Tibial Membrane Anaerobic Culture - Preliminary No growth in 48 hours. 08/08/22 10:29 Tissue - Femoral Membrane Gram Stain - Final 08/08/22 10:29 Tissue - Femoral Membrane Wound Culture - Final No growth aerobically. 08/08/22 10:29 Tissue - Femoral Membrane Anaerobic Culture - Preliminary No growth in 48 hours. 08/08/22 10:24 Tissue - Suprapatellar Pouch Gram Stain - Final 08/08/22 10:24 Tissue - Suprapatellar Pouch Wound Culture - Final No growth aerobically. 08/08/22 10:24 Tissue - Suprapatellar Pouch Anaerobic Culture - Preliminary No growth in 48 hours. 08/01/22 16:09 Swab (Method) Nasal Screen MRSA/MSSA - Final Physical Exam Narrative Vital signs stable and afebrile. SCDs and RAISSA hose are in place bilaterally Patient is able to plantarflex and dorsiflex actively. Sensation is intact to light touch to saphenous, sural, superficial and deep peroneal, and tibial distribution. Stable drainage over the distal one third contacting 2 borders with remaining Mepilex dressing is clean dry and intact. Negative Homans bilaterally, negative signs and symptoms of DVT. Const alert, oriented x3 and no apparent distress Assessment & Plan Assessment/Plan (1) Status post revision of total replacement of left knee: PLAN: 1. S/P left knee removal antibiotic spacer with left knee revision total knee arthroplasty POD #4 2. Continue Pain Medications: Tylenol, meloxicam, oxycodone 3. DVT Prophylaxis: Take 81 mg aspirin twice daily for 4 weeks postoperatively for DVT prophylaxis. Patient denies past history of DVT or pulmonary embolism 4. PT/OT: Weightbearing as tolerated with walker. Appreciate recommendations for discharge planning. 5. H & H: Postoperative anemia secondary to acute blood loss from surgery without any intra operative complications. Order has been placed to repeat CBC tomorrow to continue to monitor anemia. She will continue with the ferrous sulfate and folic acid. Discussed with the patient possible follow-up with her primary care physician for continued management upon discharge 6. Continue antibiotics while following cultures: Currently on doxycycline for 2 weeks postoperatively. There has been no growth currently on wound cultures and Gram stains are pending. We will continue to follow. 7. Continue postoperative medical management per medicine: Patient has remained medically stable. Will contact medicine with any concerns. 8. Encouraged Incentive Spirometry 9. Disposition: At this time we are waiting on pre-CERT from insurance for discharge to possible transitional care unit at [facility]. We did not hear back from insurance over the weekend. Patient has been orthopedically stable and the only reason for continued stay is waiting on insurance. She has been tolerating physical therapy. Patient is aware that there is a possibility if they do not approve her she will have to consider oth er facilities or possible home with home health physical therapy. I again discussed with the patient the possibility of being discharged home with home health physical therapy versus outpatient physical therapy. I will have medications on chart and ready for possible discharge to the transitional care unit. Continue with physical therapy while on MedSurg unit. Continue with above pain medications. Patient will continue with the doxycycline while we follow cultures postoperatively. There is been no growth. Patient does have 2- week postoperative follow-up with [facility] already scheduled. At that time x-rays and sutures will be removed. Plan will be to remove the dressing tomorrow and then use dry dressing. I have reviewed the [place] Automated Rx Reporting System (OARRS) report for this patient for refill pattern and other prescriber involvement as part of the appropriate surveillance for the provision of acute and chronic controlled medications. The report was requested and reviewed on the date of this entry and was considered in the prescribing process. This dictation was created using voice recognition software. Phonetic and/or grammatical errors may exist.
[2022-08-12 09:28] VITALS: BP 125/79; PULSE 68; RESP 18; TEMP 36.5; O2SAT 98
[2022-08-12] MEDS: Aspirin 81 MG TAB.CHEW PO ×2 (09:33→16:56)
[2022-08-12] MEDS: Calcium Carb/Vitamin D 1 TABLET Tablet PO (09:34)
[2022-08-12] MEDS: Gabapentin 300 MG Capsule PO ×3 (09:34→16:56)
[2022-08-12] MEDS: Cyanocobalamin 500 MCG Tablet 1000 MCG PO (09:34)
[2022-08-12] MEDS: Folic Acid 1 MG Tablet PO (09:34)
[2022-08-12] MEDS: oxyCODONE 5 MG Tablet PO ×3 (09:34→18:44)
[2022-08-12] MEDS: Multivitamins,Ther W-Minerals Tablet 1 TABLET PO (09:34)
[2022-08-12 09:35] VITALS: PULSE 68
[2022-08-12] MEDS: Doxycycline 100 MG CAPSULE PO ×2 (09:35→21:22)
[2022-08-12] MEDS: Meloxicam 7.5 MG Tablet PO ×2 (09:35→21:22)
[2022-08-12] MEDS: Sertraline 100 MG Tablet PO (09:35)
[2022-08-12] MEDS: Cholecalciferol (VIT D3) 25 MCG TABLET (1,000 UNITS) PO (09:35)
[2022-08-12] MEDS: hydroCHLOROthiazide 25 MG Tablet PO (09:35)
[2022-08-12] MEDS: amLODIPine 2.5 MG Tablet PO (09:35)
[2022-08-12] MEDS: Pantoprazole Sodium 40 MG Tablet PO (09:35)
[2022-08-12] MEDS: Famotidine 20 MG Tablet PO (09:35)
[2022-08-12] MEDS: Metoprolol(XL)Succ 100 MG Tablet PO (09:35)
[2022-08-12] MEDS: Ensure Surgery 237 ML LIQUID PO ×3 (09:39→16:56)
[2022-08-12] MEDS: Ferrous Sulfate 325 MG Tablet PO ×2 (12:04→16:56)
--- NOTE | 2022-08-12 15:02 | NURSING ---
Pt was walking to bathroom with PAYING TELLER and she noticed that her left knee dressing was bleeding. She was helped back to bed and then this RN went into room and took down the old dressing that was almost completely covered on 4 sides. There was no active bleeding site. Area was cleaned and redressed with a sliver Mepilex, new dennis hose applied and wrapped with an jenni and put a 5 pound sand bag on her leg. Lewis Cuellar made aware.
[2022-08-12 15:06] VITALS: BP 123/93; PULSE 78; RESP 18; TEMP 36.7; O2SAT 96
[2022-08-12 21:00] VITALS: BP 110/56; PULSE 74; RESP 17; TEMP 36.7; O2SAT 95
--- NOTE | 2022-08-12 21:15 | NURSING ---
Dressing to left knee changed with ABD pads and OLIVIER wrapped. Five pound sandbag applied.
[2022-08-12] MEDS: MELATONIN 10 MG TABLET PO (21:22)
[2022-08-12] MEDS: Pramipexole Di-HCl 1 MG Tablet PO (21:22)
[2022-08-13 02:01] VITALS: BP 99/55; PULSE 63; RESP 15; TEMP 36.6; O2SAT 93
[2022-08-13] MEDS: oxyCODONE 5 MG Tablet PO ×4 (02:03→19:58)
[2022-08-13] MEDS: Acetaminophen 500 MG Tablet 1000 MG PO ×3 (06:07→20:00)
--- NOTE | 2022-08-13 06:15 | PCM.PN.ORT ---
Subjective Subjective The patient was sitting in bed upon examination. Patient denies any chest pain, shortness of breath, dizziness, lightheadedness, nausea or vomiting, or calf pain. Pain is controlled on medications. I did get a call yesterday from the nursing staff stating patient has had drainage over the distal incision. Mepilex dressing was changed. After physical therapy yesterday afternoon she had continued drainage over the same area. At that time nursing was instructed to use ABDs with compression Harvey wrap and sandbag. Patient overall is doing well this morning. She is down considering she had some of the drainage. I explained to her that this can happen after revision total knee arthroplasties. The dressing was removed and overall incision is healing very well with no erythema. There is no active drainage. Objective Data Objective Data Vital Signs: Vital Signs Temp Pulse Resp BP Pulse Ox O2 Del Method O2 Flow Rate 97.9 F 63 15 99/55 L 93 Room Air 4 08/13/22 02:01 08/13/22 02:01 08/13/22 02:01 08/13/22 02:01 08/13/22 02:01 08/13/22 02:01 08/08/22 14:30 Oxygen Flow Rate (L/min) 4 Oxygen Delivery Method Room Air Weight: 101 kg Body Mass Index (BMI) 40.7 Intake & Output: Intake and Output for Last 24 Hours 08/11/22 08/12/22 08/13/22 23:59 23:59 23:59 Intake Total 350 / 350 Output Total 150 / 150 Balance 200 / 200 Lab / Micro Data Result Diagrams: 08/10/22 06:41 08/09/22 06:00 Micro: Microbiology 08/08/22 10:31 Tissue - Tibial Membrane Gram Stain - Final 08/08/22 10:31 Tissue - Tibial Membrane Wound Culture - Final No growth aerobically. 08/08/22 10:31 Tissue - Tibial Membrane Anaerobic Culture - Final No growth in 5 days. 08/08/22 10:24 Tissue - Suprapatellar Pouch Gram Stain - Final 08/08/22 10:24 Tissue - Suprapatellar Pouch Wound Culture - Final No growth aerobically. 08/08/22 10:24 Tissue - Suprapatellar Pouch Anaerobic Culture - Final No growth in 5 days. 08/08/22 10:29 Tissue - Femoral Membrane Gram Stain - Final 08/08/22 10:29 Tissue - Femoral Membrane Wound Culture - Final No growth aerobically. 08/08/22 10:29 Tissue - Femoral Membrane Anaerobic Culture - Final No growth in 5 days. 08/01/22 16:09 Swab (Method) Nasal Screen MRSA/MSSA - Final Physical Exam Narrative Vital signs stable and afebrile. Patient did have 1 reading of lower blood pressure. She denies any chest pain or shortness of breath. No dizziness or lightheadedness. We are repeating lab work this morning. Patient is able to plantarflex and dorsiflex actively. Sensation is intact to light touch to saphenous, sural, superficial and deep peroneal, and tibial distribution. Dressing was removed and incision check. Incision is healing well with no erythema or no active range of motion. Left knee was taken through gentle range of motion with some pain but no active drainage. Drainage has occurred after physical therapy Negative Homans bilaterally, negative signs and symptoms of DVT. Const alert, oriented x3 and no apparent distress Assessment & Plan Assessment/Plan (1) Status post revision of total replacement of left knee: PLAN: 1. S/P left knee removal antibiotic spacer with left knee revision total knee arthroplasty POD #5 2. Continue Pain Medications: Tylenol, meloxicam, oxycodone 3. DVT Prophylaxis: Take 81 mg aspirin twice daily for 4 weeks postoperatively for DVT prophylaxis. Patient denies past history of DVT or pulmonary embolism 4. PT/OT: Weightbearing as tolerated with walker. Appreciate recommendations for discharge planning. 5. H & H: Order was placed yesterday for CBC this morning. Postoperative anemia secondary to acute blood loss from surgery without any intra operative complications. She will continue with the ferrous sulfate and folic acid. Discussed with the patient possible follow-up with her primary care physician for continued management upon discharge 6. Continue antibiotics while following cultures: Currently on doxycycline for 2 weeks postoperatively. There has been no growth currently on wound cultures and Gram stains are pending. We will continue to follow. 7. Continue postoperative medical management per medicine: Patient has remained medically stable. Will contact medicine with any concerns. 8. Encouraged Incentive Spirometry 9. Postoperative incision and drainage: Case was discussed with the wound nurse. At this time we are going to proceed with a Prevena incisional wound VAC for the next 1 week. This will allow patient to continue to work on range of motion. I discussed this in detail with the patient. She is not to get this wet and must sponge bathe upon discharge from the hospital. 10. Disposition: At this time we are waiting on pre-CERT from insurance for discharge to possible transitional care unit at [facility]. We did not hear back from insurance over the weekend. Patient has been orthopedically stable and the only reason for continued stay is waiting on insurance. She has been tolerating physical therapy. Patient is aware that there is a possibility if they do not approve her she will have to consider other facilities or possible home with home health physical therapy. I again discussed with the patient the possibility of being discharged home with home health physical therapy versus outpatient physical therapy. I will have medications on chart and ready for possible discharge to the transitional care unit. Continue with physical therapy while on MedSurg unit. Continue with above pain medications. Patient will continue with the doxycycline while we follow cultures postoperatively. There is been no growth. Patient does have 2-week postoperative follow-up with [place] already scheduled. At that time x-rays and sutures will be removed. Prevena incisional wound VAC will be placed and this will be removed at her 2-week postoperative follow-up on August 20, 2022. She was instructed to keep this clean and dry and not get wet. I will call back in later today to discuss with social worker clinical with regards to discharge planning. We are still waiting on pre-CERT from insurance. We will also review lab work once obtained. May recommend 2-week follow-up with primary care physician for continued management of anemia. Lab order will be placed on chart. I have reviewed the [place] Automated Rx Reporting System (OARRS) report for this patient for refill pattern and other prescriber involvement as part of the appropriate surveillance for the provision of acute and chronic controlled medications. The report was requested and reviewed on the date of this entry and was considered in the prescribing process. This dictation was created using voice recognition software. Phonetic and/or grammatical errors may exist.
[2022-08-13 06:29] LABS: Hematocrit 30.1 % (37-47); Hemoglobin 9.2 g/dL (12.0-15.0); Mean Corp Hgb Conc 30.6 g/dL (32-36); Mean Corpuscular Hgb 25.3 pg (27.0-32.0); Mean Corpuscular Volume 82.7 fL (81-99); Mean Platelet Vol. 9.7 fl (6.2-12.0); Platelet Count 160 K/mm3 (150-450); RBC Distribution Width CV 15.2 % (11.6-14.6); RBC Distribution Width SD 45.1 fl (35.1-43.9); Red Blood Count 3.64 M/mm3 (4.2-5.4); White Blood Count 4.7 K/mm3 (4.4-11.0)
[2022-08-13 08:15] VITALS: BP 130/70; PULSE 60; RESP 18; TEMP 36.6; O2SAT 96
[2022-08-13] MEDS: Ensure Surgery 237 ML LIQUID PO ×2 (08:19→16:49)
[2022-08-13] MEDS: Cholecalciferol (VIT D3) 25 MCG TABLET (1,000 UNITS) PO (08:19)
[2022-08-13] MEDS: Pantoprazole Sodium 40 MG Tablet PO (08:19)
[2022-08-13] MEDS: Multivitamins,Ther W-Minerals Tablet 1 TABLET PO (08:20)
[2022-08-13] MEDS: Meloxicam 7.5 MG Tablet PO ×2 (08:20→20:00)
[2022-08-13] MEDS: hydroCHLOROthiazide 25 MG Tablet PO (08:20)
[2022-08-13] MEDS: Folic Acid 1 MG Tablet PO (08:20)
[2022-08-13] MEDS: amLODIPine 2.5 MG Tablet PO (08:20)
[2022-08-13] MEDS: Cyanocobalamin 500 MCG Tablet 1000 MCG PO (08:20)
[2022-08-13] MEDS: Doxycycline 100 MG CAPSULE PO ×2 (08:20→19:59)
[2022-08-13] MEDS: Calcium Carb/Vitamin D 1 TABLET Tablet PO (08:20)
[2022-08-13 08:21] VITALS: PULSE 60
[2022-08-13] MEDS: Famotidine 20 MG Tablet PO (08:21)
[2022-08-13] MEDS: Aspirin 81 MG TAB.CHEW PO ×2 (08:21→16:49)
[2022-08-13] MEDS: Metoprolol(XL)Succ 100 MG Tablet PO (08:21)
[2022-08-13] MEDS: Sertraline 100 MG Tablet PO (08:21)
[2022-08-13] MEDS: Gabapentin 300 MG Capsule PO ×3 (08:27→16:49)
--- NOTE | 2022-08-13 09:22 | PN.HOSP_ITS ---
Reason for Visit Reason for Visit: Diagnoses Anemia, unspecified (08/08/22) Unilateral primary osteoarthritis, right knee (08/08/22) Encounter for other preprocedural examination (08/08/22) Presence of left artificial knee joint (08/08/22) Subjective Subjective Patient is a 77-year-old lady who underwent Removal antibiotic spacer left knee with revision left total knee arthroplasty on 08/08/[address] Loredo Objective Data Objective Data Vital Signs: Vital Signs Temp Pulse Resp BP Pulse Ox O2 Del Method O2 Flow Rate 97.9 F 60 15 99/55 L 93 Room Air 4 08/13/22 02:01 08/13/22 08:21 08/13/22 02:01 08/13/22 02:01 08/13/22 02:01 08/13/22 02:01 08/08/22 14:30 Oxygen Flow Rate (L/min) 4 Oxygen Delivery Method Room Air Weight: 101 kg Body Mass Index (BMI) 40.7 Intake & Output: Intake and Output for Last 24 Hours 08/11/22 08/12/22 08/13/22 23:59 23:59 23:59 Intake Total 350 / 350 Output Total 150 / 150 Balance 200 / 200 Lab / Micro Data Result Diagrams: 08/13/22 05:45 08/09/22 06:00 Labs: Laboratory Results - last 24 hr 08/13/22 05:45: WBC 4.7, RBC 3.64 L, Hgb 9.2 L, Hct 30.1 L, MCV 82.7, MCH 25.3 L , MCHC 30.6 L, RDW Std Deviation 45.1 H, RDW Coeff of Rufino 15.2 H, Plt Count 160, MPV 9.7 Micro: Microbiology 08/08/22 10:31 Tissue - Tibial Membrane Gram Stain - Final 08/08/22 10:31 Tissue - Tibial Membrane Wound Culture - Final No growth aerobically. 08/08/22 10:31 Tissue - Tibial Membrane Anaerobic Culture - Final No growth in 5 days. 08/08/22 10:24 Tissue - Suprapatellar Pouch Gram Stain - Final 08/08/22 10:24 Tissue - Suprapatellar Pouch Wound Culture - Final No growth aerobically. 08/08/22 10:24 Tissue - Suprapatellar Pouch Anaerobic Culture - Final No growth in 5 days. 08/08/22 10:29 Tissue - Femoral Membrane Gram Stain - Final 08/08/22 10:29 Tissue - Femoral Membrane Wound Culture - Final No growth aerobically. 08/08/22 10:29 Tissue - Femoral Membrane Anaerobic Culture - Final No growth in 5 days. 08/01/22 16:09 Swab (Method) Nasal Screen MRSA/MSSA - Final Physical Exam Narrative GENERAL: cooperative HEENT: Atraumatic; normocephalic EYES; Anicteric, Normal Conjunctiva NECK; supple, normal thyroid, RESPIRATORY: Diminished to auscultation CARDIOVASCULAR: Regular S1 S2, GI: soft, normoactive bowel sounds, : No Renal angle tenderness; EXTREMITIES: Left knee in surgical dressing with a wound VAC present MUSCULOSKELETAL: no muscle wasting NEURO: Awake; no lateralizing signs. SKIN: No Rash PSYCH; Flat affect Assessment & Plan Assessment/Plan (1) Osteoarthritis of right knee: PLAN: Plan Patient is a 77-year-old lady who underwent Patient is a 77-year-old lady who underwent Removal antibiotic spacer left knee with revision left total knee art hroplasty on 08/08/[address] Loredo. The hospitalist service was consulted to assist with management of patient medical comorbidities 1. Status post Removal antibiotic spacer left knee with revision left total knee arthroplasty ? On 08/08/[address] Loredo. Patient postoperative orders regarding pain management, PT OT and DVT prophylaxis as advised by primary service 2. Essential hypertension ? Patient blood pressure currently controlled on her regimen including metoprolol 100 mg daily HCTZ 25 mg daily as well as amlodipine 2.5 mg daily 3. GERD ? Patient on a PPI did continue 4. Restless leg syndrome ? Patient is on Requip at home continue 5. Class III obesity with BMI of 40.7 ? Weight loss advised 6. DVT prophylaxis ? Placed on aspirin 81 mg p.o. twice daily by primary service Time spent in the patient's overall evaluation,decision-making process, review of diagnostic data, adjustment of management, discussion with other providers, nursing nursing and ancillary staff involved in patient's care documentation, 35 Minutes Charges/Coding Visit Charges Inpatient E&M: 80292 Subs Hosp L2
[2022-08-13 10:01] VITALS: O2SAT 96
--- NOTE | 2022-08-13 10:21 | WOUNDNOTE ---
wound photo: left knee
[2022-08-13] MEDS: Ferrous Sulfate 325 MG Tablet PO ×2 (12:26→16:49)
[2022-08-13 14:15] VITALS: BP 124/75; PULSE 72; RESP 18; TEMP 36.7; O2SAT 94
[2022-08-13 19:58] VITALS: BP 120/73; PULSE 71; RESP 17; TEMP 36.7; O2SAT 95
[2022-08-13] MEDS: Pramipexole Di-HCl 1 MG Tablet PO (20:00)
[2022-08-13] MEDS: MELATONIN 10 MG TABLET PO (20:00)
[2022-08-14 03:00] VITALS: BP 125/66; PULSE 68; RESP 15; TEMP 36.8; O2SAT 94
[2022-08-14] MEDS: Acetaminophen 500 MG Tablet 1000 MG PO (04:55)
[2022-08-14] MEDS: oxyCODONE 5 MG Tablet PO ×2 (04:55→10:04)
--- NOTE | 2022-08-14 06:37 | PCM.PN.ORT ---
Subjective Subjective The patient was sitting in bed upon examination. Patient denies any chest pain, shortness of breath, dizziness, lightheadedness, nausea or vomiting, or calf pain. Pain is controlled on medications. No adverse overnight events. Patient is overall doing well today. No overnight complaints. She had a Prevena wound VAC placed yesterday due to drainage. There is no drainage this morning in canister or tubing. Patient has walked 225 feet with physical therapy. Objective Data Objective Data Vital Signs: Vital Signs Temp Pulse Resp BP Pulse Ox O2 Del Method O2 Flow Rate 98.3 F 68 15 125/66 H 94 Room Air 4 08/14/22 03:00 08/14/22 03:00 08/14/22 03:00 08/14/22 03:00 08/14/22 03:00 08/14/22 03:00 08/08/22 14:30 Oxygen Flow Rate (L/min) 4 Oxygen Delivery Method Room Air Weight: 101 kg Body Mass Index (BMI) 40.7 Intake & Output: Intake and Output for Last 24 Hours 08/12/22 08/13/22 08/14/22 23:59 23:59 23:59 Intake Total 1300 / 1650 350 / 350 Output Total 150 / 150 Balance 1150 / 1500 350 / 350 Lab / Micro Data Result Diagrams: 08/13/22 05:45 08/09/22 06:00 Micro: Microbiology 08/08/22 10:31 Tissue - Tibial Membrane Gram Stain - Final 08/08/22 10:31 Tissue - Tibial Membrane Wound Culture - Final No growth aerobically. 08/08/22 10:31 Tissue - Tibial Membrane Anaerobic Culture - Final No growth in 5 days. 08/08/22 10:24 Tissue - Suprapatellar Pouch Gram Stain - Final 08/08/22 10:24 Tissue - Suprapatellar Pouch Wound Culture - Final No growth aerobically. 08/08/22 10:24 Tissue - Suprapatellar Pouch Anaerobic Culture - Final No growth in 5 days. 08/08/22 10:29 Tissue - Femoral Membrane Gram Stain - Final 08/08/22 10:29 Tissue - Femoral Membrane Wound Culture - Final No growth aerobically. 08/08/22 10:29 Tissue - Femoral Membrane Anaerobic Culture - Final No growth in 5 days. 08/01/22 16:09 Swab (Method) Nasal Screen MRSA/MSSA - Final Physical Exam Narrative Vital signs stable and afebrile. SCDs and RAISSA hose are in place bilaterally Patient is able to plantarflex and dorsiflex actively. Sensation is intact to light touch to saphenous, sural, superficial and deep peroneal, and tibial distribution. Prevena wound VAC intact with no drainage in canister or tubing Negative Homans bilaterally, negative signs and symptoms of DVT. Const alert, oriented x3 and no apparent distress Assessment & Plan Assessment/Plan (1) Status post revision of total replacement of left knee: PLAN: 1) Status post revision of total replacement of left knee: PLAN: 1.? S/P left knee removal antibiotic spacer with left knee revision total knee arthroplasty POD #6 2.? Continue Pain Medications: Tylenol, meloxicam, oxycodone 3.? DVT Prophylaxis: Take 81 mg aspirin twice daily for 4 weeks postoperatively for DVT prophylaxis.? Patient denies past history of DVT or pulmonary embolism 4.? PT/OT: Weightbearing as tolerated with walker.? Appreciate recommendations for discharge planning. Patient has walked 225 feet with physical therapy yesterday. 5.? H & H: Yesterday results were 9.2/30.1, asymptomatic. Postoperative anemia secondary to acute blood loss from surgery without any intra operative complications. ? She will continue with the ferrous sulfate and folic acid.? Discussed with the patient possible follow-up with her primary care physician for continued management upon discharge 6.? Continue antibiotics while following cultures: Currently on doxycycline for 2 weeks postoperatively.? There has been no growth currently on wound cultures and Gram stains are pending.? We will continue to follow. 7.? Continue postoperative medical management per medicine: Patient has remained medically stable.? Will contact medicine with any concerns. 8.? Encouraged Incentive Spirometry 9.? Postoperative incision and drainage: Prevena wound VAC in place with no drainage in tubing or canister. We will continue with wound VAC over the next 1 week. Explained to the patient that she will remove the Prevena wound VAC on her own on August 20, 2022. If the battery would over the weekend she is to remove the dressing at that time. She is not allowed to get this wet. Once removed she can shower and get the incision wet. 10.? Disposition: At this time we are waiting on pre-CERT from insurance for discharge to possible transitional care unit at [facility].? We did not hear back from insurance at this time. Patient has been walking 225 feet with physical therapy. Patient has been orthopedically stable and the only reason for continued stay is waiting on insurance.? She has been tolerating physical therapy.? Patient is aware that there is a possibility if they do not approve her she will have to consider other facilities or possible home with home health physical therapy.? I again discussed with the patient the possibility of being discharged home with home health physical therapy versus outpatient physical therapy.? I will have medications on chart and ready for possible discharge to the transitional care unit.? Continue with physical therapy while on MedSurg unit.? Continue with above pain medications.? Patient will continue with the doxycycline while we follow cultures postoperatively.? There is been no growth.? Patient does have 2-week postoperative follow-up with [facility] already scheduled.? At that time x-rays and sutures will be removed.? Prevena incisional wound VAC will be removed on her own on August 20, 2022.? She was instructed to keep this clean and dry and not get wet.? I will call back in later today to discuss with social sciences instructor with regards to discharge planning.? We are still waiting on pre-CERT from insurance.? We will also review lab work once obtained.? May recommend 2-week follow-up with primary care physician for continued management of anemia.? Lab order will be placed on chart. I have reviewed the [place] Automated Rx Reporting System (OARRS) report for this patient for refill pattern and other prescriber involvement as part of the appropriate surveillance for the provision of acute and chronic controlled medications.? The report was requested and reviewed on the date of this entry and was considered in the prescribing process. This dictation was created using voice recognition software.? Phonetic and/or grammatical errors may exist.
[2022-08-14 06:48] LABS: Absolute Neutrophil Count 2.5 X10^3/uL (2.0-7.7); Basophil# 0.04 X10^3/uL; Eosinophils% 4.8 % (0-5); Hematocrit 31.2 % (37-47); Hemoglobin 9.5 g/dL (12.0-15.0); Lymphocyte % 23.8 % (19-41); Mean Corp Hgb Conc 30.4 g/dL (32-36); Mean Corpuscular Hgb 25.7 pg (27.0-32.0); Mean Corpuscular Volume 84.3 fL (81-99); Monocyte# 0.49 X10^3/uL; Monocyte% 11.6 % (0-10); NRBC Flagged by Analyzer 0 % (0-5); Neutrophil # 2.46 X10^3/uL (2.7-7.7); Neutrophil % 58.3 % (47-70); Platelet Count 156 K/mm3 (150-450); RBC Distribution Width CV 15.5 % (11.6-14.6); RBC Distribution Width SD 46.5 fl (35.1-43.9); White Blood Count 4.2 K/mm3 (4.4-11.0)
[2022-08-14 07:14] LABS: Anion Gap 4 (5-15); BUN 20 mg/dL (7-18); BUN/Creat Ratio 36.2 RATIO (10-20); Calcium,Total 9.2 mg/dL (8.5-10.1); Chloride 100 mmol/L (98-107); Creatinine, Serum 0.55 mg/dL (0.55-1.02); EST Glomerular Filtration Rate 113 mL/min (>60); Est Glom Filt Rate - Afr Amer 137 mL/min (>60); Estimated Creatinine Clearance 37.26 ml/min; Glucose 98 mg/dL (74-106); Potassium 4.1 mmol/L (3.5-5.1); Sodium Level 137 mmol/L (136-145)
--- NOTE | 2022-08-14 07:55 | PN.HOSP_ITS ---
Reason for Visit Reason for Visit:
--- NOTE | 2022-08-14 07:55 | PCM.PN.HOSP ---
Reason for Visit Reason for Visit: Diagnoses Anemia, unspecified (08/08/22) Unilateral primary osteoarthritis, right knee (08/08/22) Encounter for other preprocedural examination (08/08/22) Presence of left artificial knee joint (08/08/22) Subjective Subjective Relatively uneventful night. Objective Data Objective Data Vital Signs: Vital Signs Temp Pulse Resp BP Pulse Ox O2 Del Method O2 Flow Rate 98.3 F 68 15 125/66 H 94 Room Air 4 08/14/22 03:00 08/14/22 03:00 08/14/22 03:00 08/14/22 03:00 08/14/22 03:00 08/14/22 03:00 08/08/22 14:30 Oxygen Flow Rate (L/min) 4 Oxygen Delivery Method Room Air Weight: 101 kg Body Mass Index (BMI) 40.7 Intake & Output: Intake and Output for Last 24 Hours 08/12/22 08/13/22 08/14/22 23:59 23:59 23:59 Intake Total 1300 / 1650 650 / 650 Output Total 150 / 150 Balance 1150 / 1500 650 / 650 Lab / Micro Data Result Diagrams: 08/14/22 06:32 08/14/22 06:32 Labs: Laboratory Results - last 24 hr 08/14/22 06:32: WBC 4.2 L, RBC 3.70 L, Hgb 9.5 L, Hct 31.2 L, MCV 84.3, MCH 25.7 L, MCHC 30.4 L, RDW Std Deviation 46.5 H, RDW Coeff of Rufino 15.5 H, Plt Count 156, MPV 9.0, Immature Gran % (Auto) 0.500, Neut % (Auto) 58.3, Lymph % (Auto) 23.8, Nance % (Auto) 11.6 H, Eos % (Auto) 4.8, Baso % (Auto) 1.0, Absolute Neuts (auto) 2.5, Absolute Lymphs (auto) 1.00, Nucleated RBC % 0 08/14/22 06:32: Sodium 137, Potassium 4.1, Chloride 100, Carbon Dioxide 33.0 H, Anion Gap 4 L, BUN 20 H, Creatinine 0.55, Estim Creat Clear Calc 37.26, Est GFR (MDRD) Af Amer 137, Est GFR (MDRD) Non-Af 113, BUN/Creatinine Ratio 36.2 H, Glucose 98, Calcium 9.2, Magnesium 2.0 Micro: Microbiology 08/08/22 10:31 Tissue - Tibial Membrane Gram Stain - Final 08/08/22 10:31 Tissue - Tibial Membrane Wound Culture - Final No growth aerobically. 08/08/22 10:31 Tissue - Tibial Membrane Anaerobic Culture - Final No growth in 5 days. 08/08/22 10:24 Tissue - Suprapatellar Pouch Gram Stain - Final 08/08/22 10:24 Tissue - Suprapatellar Pouch Wound Culture - Final No growth aerobically. 08/08/22 10:24 Tissue - Suprapatellar Pouch Anaerobic Culture - Final No growth in 5 days. 08/08/22 10:29 Tissue - Femoral Membrane Gram Stain - Final 08/08/22 10:29 Tissue - Femoral Membrane Wound Culture - Final No growth aerobically. 08/08/22 10:29 Tissue - Femoral Membrane Anaerobic Culture - Final No growth in 5 days. 08/01/22 16:09 Swab (Method) Nasal Screen MRSA/MSSA - Final Physical Exam Narrative GENERAL: cooperative HEENT: Atraumatic; normocephalic EYES; Anicteric, Normal Conjunctiva NECK; supple, normal thyroid, RESPIRATORY: Diminished to auscultation CARDIOVASCULAR: Regular S1 S2, GI: soft, normoactive bowel sounds, : No Renal angle tenderness; EXTREMITIES: Left knee in surgical dressing with a wound VAC present MUSCULOSKELETAL: no muscle wasting NEURO: Awake; no lateralizing signs. SKIN: No Rash PSYCH; Flat affect Assessment & Plan Assessment/Plan (1) Osteoarthritis of right knee: PLAN: Plan Patient is a 77-year-old lady who underwent Patient is a 77-year-old lady who underwent Removal antibiotic spacer left knee with revision left total knee arthroplasty on 08/08/[address] Loredo. The hospitalist service was consulted to assist with management of patient medical comorbidities 1. Status post Removal antibiotic spacer left knee with revision left total knee arthroplasty ? On 08/08/[address] Loredo. Patient postoperative orders regarding pain management, PT OT and DVT prophylaxis as advised by primary service ? 08/14/2022. Patient seen pain is tolerable patient being assessed for possible 2. Essential hypertension ? Patient blood pressure currently controlled on her regimen including metoprolol 100 mg daily HCTZ 25 mg daily as well as amlodipine 2.5 mg daily 3. GERD ? Patient on a PPI did continue 4. Restless leg syndrome ? Patient is on Requip at home continue 5. Class III obesity with BMI of 40.7 ? Weight loss advised 6. DVT prophylaxis ? Placed on aspirin 81 mg p.o. twice daily by primary service Time spent in the patient's overall evaluation,decision-making process, review of diagnostic data, adjustment of management, discussion with other providers, nursing nursing and ancillary staff involved in patient's care documentation, 35 Minutes Charges/Coding Visit Charges Inpatient E&M: 29288 Subs Hosp L2
[2022-08-14 09:45] VITALS: BP 129/80; PULSE 71; RESP 18; TEMP 36.9; O2SAT 96
[2022-08-14 09:49] VITALS: PULSE 72
[2022-08-14] MEDS: Aspirin 81 MG TAB.CHEW PO (09:49)
[2022-08-14] MEDS: Calcium Carb/Vitamin D 1 TABLET Tablet PO (09:49)
[2022-08-14] MEDS: Folic Acid 1 MG Tablet PO (09:49)
[2022-08-14] MEDS: Multivitamins,Ther W-Minerals Tablet 1 TABLET PO (09:49)
[2022-08-14] MEDS: Sertraline 100 MG Tablet PO (09:49)
[2022-08-14] MEDS: Pantoprazole Sodium 40 MG Tablet PO (09:49)
[2022-08-14] MEDS: Metoprolol(XL)Succ 100 MG Tablet PO (09:49)
[2022-08-14] MEDS: Doxycycline 100 MG CAPSULE PO (09:49)
[2022-08-14] MEDS: Famotidine 20 MG Tablet PO (09:49)
[2022-08-14] MEDS: Meloxicam 7.5 MG Tablet PO (09:49)
[2022-08-14] MEDS: Cholecalciferol (VIT D3) 25 MCG TABLET (1,000 UNITS) PO (09:49)
[2022-08-14] MEDS: Cyanocobalamin 500 MCG Tablet 1000 MCG PO (09:50)
[2022-08-14] MEDS: amLODIPine 2.5 MG Tablet PO (09:50)
[2022-08-14] MEDS: hydroCHLOROthiazide 25 MG Tablet PO (09:50)
[2022-08-14] MEDS: Gabapentin 300 MG Capsule PO ×2 (10:04→12:47)
--- NOTE | 2022-08-14 10:17 | CASEMGMT ---
Social Work SW received update from that pt would like to d/c home today and cancel TCU plans. SW in to pt room to discuss and pt confirmed this plan. Pt states feels ready to return home and feels safe without anxiety. SW offered encouragement for pt and discussed intent to cancel TCU referral. Pt confirmed this was okay. KYMBERLY sent message to Yudith at TCU that pt referral and precert can be cancelled as pt will be going home. Yudith voiced understanding. Dispo: Home AS[facility]
--- NOTE | 2022-08-14 10:23 | NURSING ---
OXY x1 pill fell on floor. med wasted and verified by claudine thomas
--- NOTE | 2022-08-14 10:26 | CASEMGMT ---
Addendum entered by Vi Christine 08/14/22 11:25: TC to 's office, set up appt for follow up with pcp for anemia. Placed on dc instructions and pt aware. Addendum entered by Vi Christine 08/14/22 10:40: TC to [facility], spoke with Saira. Set pt first appt up on 08/16/22 at 1:30pm. They will then assist with scheduling the hospital van for future appts. Per Saira, order can be entered in [employer], added at this time. Pt aware of appt and placed on dc instructions. Original Note: TRACY HANEY in to pt room to discuss dc planning. Pt states she is ready to go home and would like to do outpt therapy at [facility]. Pt states she does not like to depend on people for transportation. Discussed using the hospital van. Pt is agreeable for TRACY HANEY to set up first appt, she prefers in the afternoon. Pt denies any further homegoing needs. Updated Lewis NEGRETE.
--- NOTE | 2022-08-14 11:10 | DS.PCM_ITS ---
Providers Date of Admission: 08/08/22 Date of Discharge: 08/14/22 Primary Care Physician: Dr. Cheryl Russell, DO Consultations 08/08/22 12:22 Consult: Hospitalist Routine Consulting Provider: Aaliyah Mckay Reason for Consult: post op med management EMERGENT Consult: No MD Notified: Yes Date Notified: 08/08/22 Time Notified: 12:22 Method of Notification: Text 08/13/22 06:28 Consult: Onc/Wound/health care assistant Routine Comment: Reason for Consult:: Postoperative drainage left revision total knee arthroplasty Comments:: Please apply Prevena incisional wound VAC Reason For Visit: lt total knee, removal antibiotic spacer Diagnosis Discharge Diagnosis (1) Status post revision of total replacement of left knee: Status: Acute Code(s): Z96.652 - Presence of left artificial knee joint Plan: (1) Status post revision of total replacement of left knee: PLAN: 1) Status post revision of total replacement of left knee: PLAN: 1.? S/P left knee removal antibiotic spacer with left knee revision total knee arthroplasty POD #6 2.? Continue Pain Medications: Tylenol, meloxicam, oxycodone 3.? DVT Prophylaxis: Take 81 mg aspirin twice daily for 4 weeks postoperatively for DVT prophylaxis.? Patient denies past history of DVT or pulmonary embolism 4.? PT/OT: Weightbearing as tolerated with walker.? Appreciate recommendations for discharge planning.? Patient has walked 225 feet with physical therapy yesterday. 5.? H & H: Yesterday results were 9.2/30.1, asymptomatic.? Postoperative anemia secondary to acute blood loss from surgery without any intra operative complications. ? She will continue with the ferrous sulfate and folic acid.? Discussed with the patient possible follow-up with her primary care physician for continued management upon discharge 6.? Continue antibiotics while following cultures: Currently on doxycycline for 2 weeks postoperatively.? There has been no growth currently on wound cultures and Gram stains are pending.? We will continue to follow. 7.? Continue postoperative medical management per medicine: Patient has remained medically stable.? Will contact medicine with any concerns. 8.? Encouraged Incentive Spirometry 9.? Postoperative incision and drainage: Prevena wound VAC in place with no drainage in tubing or canister.? We will continue with wound VAC over the next 1 week.? Explained to the patient that she will remove the Prevena wound VAC on her own on August 20, 2022.? If the battery would over the weekend she is to remove the dressing at that time.? She is not allowed to get this wet.? Once r emoved she can shower and get the incision wet. 10.? Disposition: At this time we are waiting on pre-CERT from insurance for discharge to possible transitional care unit at [facility].? We did not hear back from insurance at this time.? Patient has been walking 225 feet with physical therapy.? Patient has been orthopedically stable and the only reason for continued stay is waiting on insurance.? She has been tolerating physical therapy.? Patient is aware that there is a possibility if they do not approve her she will have to consider other facilities or possible home with home health physical therapy.? I again discussed with the patient the possibility of being discharged home with home health physical therapy versus outpatient physical therapy.? I will have medications on chart and ready for possible discharge to the transitional care unit.? Continue with physical therap y while on MedSurg unit.? Continue with above pain medications.? Patient will continue with the doxycycline while we follow cultures postoperatively.? There is been no growth.? Patient does have 2-week postoperative follow-up with [facility] already scheduled.? At that time x-rays and sutures will be removed.? Prevena incisional wound VAC will be removed on her own on August 20, 2022.? She was instructed to keep this clean and dry and not get wet.? I will call back in later today to discuss with social welfare administrator with regards to discharge planning.? We are still waiting on pre-CERT from insurance.? We will also review lab work once obtained.? May recommend 2-week follow-up with primary care physician for continued management of anemia.? Lab order will be placed on chart. I have reviewed the [place] Automated Rx Reporting System (OARRS) report for this patient for refill pattern and other prescriber involvement as part of the appropriate surveillance for the provision of acute and chronic controlled medications.? The report was requested and reviewed on the date of this entry and was considered in the prescribing process. This dictation was created using voice recognition software.? Phonetic and/or grammatical errors may exist. Medications at Discharge Home Medications amlodipine 2.5 mg tablet 2.5 mg PO DAILY Heart 08/04/19 calcium carbonate-vitamin D3 600 mg-125 unit tablet 1 tab PO 0800 Supplement 08/04/19 cyanocobalamin (vitamin B-12) 500 mcg tablet 1,000 mcg PO DAILY@0800 supplement 08/04/19 hydrochlorothiazide 25 mg tablet 25 mg PO DAILY Heart 08/04/19 melatonin 5 mg tablet 10 mg PO QHS Check with primary doctor 08/04/19 multivitamin with minerals 1 tab PO DAILY supplement 08/04/19 omeprazole 40 mg capsule,delayed release 40 mg PO DAILY GERD 08/04/19 sertraline 100 mg tablet 100 mg PO DAILY depression 08/04/19 gabapentin 300 mg capsule 300 mg PO TIDCM pain 10/26/21 magnesium chloride 64 mg (magnesium chloride) tablet,delayed release (Mag 64) 64 mg PO DAILY supplement 10/26/21 cholecalciferol (vitamin D3) 25 mcg (1,000 unit) tablet 25 mcg PO DAILY SUPPLEMENT 01/26/22 pramipexole 0.5 mg tablet 1 mg PO QHS RLS 01/26/22 meloxicam 7.5 mg tablet 7.5 mg PO BID PAIN 04/27/22 sennosides 8.6 mg-docusate sodium 50 mg tablet (Stool Softener-Stimulant Laxative) 2 tab PO BID PRN Constipation 05/21/22 oxycodone 5 mg tablet 5 - 10 mg PO Q4H PRN PRN Pain Score 4-10 7 days #42 tabs 06/15/22 acetaminophen 500 mg tablet 1,000 mg PO Q8 Check with primary doctor 08/08/22 metoprolol succinate 100 mg tablet,extended release 24 hr 100 mg PO DAILY Check with primary doctor 08/08/22 aspirin 81 mg chewable tablet 81 mg PO BIDCM 30 days #60 tabs 08/10/22 doxycycline monohydrate 100 mg capsule 100 mg PO BID 12 days #24 caps 08/10/22 ferrous sulfate 325 mg (65 mg iron) tablet (FeroSul) 325 mg PO 1200,1700 14 days #28 tabs 08/10/22 folic acid 1 mg tablet 1 mg PO BREAKFAST 14 days #14 tabs 08/10/22 oxycodone 5 mg tablet 5 - 10 mg PO Q4H PRN PRN Pain Score 4-10 5 days #60 tabs 08/10/22 Hospital Course Operations total knee replacement (Removal antibiotic spacer with revision left total knee arthroplasty) Procedures Wound vac placement (Continue with per venous incisional wound VAC with removal on her own on August 20, 2022) Summary of Care Provided Hospital Course: Patient is a 77-year-old female who had antibiotic spacer from previous infection. After failing conservative measures, the patient opted to proceed with a removal antibiotic spacer with revision left total knee arthroplasty. The patient underwent the above-stated procedure on August 08, 2022. Patient did receive perioperative antibiotics. Intraoperatively was uneventful. For details please see dictated operative note. The patient was placed in thigh-high teds, bilateral SCDs, remained stable in recovery. Patient was admitted to the 3rd floor at [facility]. The patient's pain was managed with the use of IV and p.o. pain medications. Patient participated in physical therapy. Patient was discharged on postoperative day 6 to home with outpatient physical therapy. Patients length of stay was secondary to waiting all weekend and throughout early this week on insurance approval. No approval has been obtained and patient was medically stable as well as orthopedically stable. Patient decided that she wished to go home with outpatient therapy at this point. She has done very well with physical therapy in the hospital. Prepping a wound VAC was placed due to drainage. She will remove this on her own on August 20, 2022. Medications have been E scribe to her primary pharmacy including oxycodone, meloxicam, doxyc ycline, aspirin 81 mg, Tylenol. She will continue with the doxycycline postoperatively while following cultures. Cultures have been negative. Patient will follow up with [facility] per postop instructions for reassessment. Weight / BMI Weight Weight: 101 kg Body Mass Index (BMI) 40.7 ABG / Lab / Microbiology Data Result Diagrams: 08/14/22 06:32 08/14/22 06:32 Laboratory: Laboratory Results - last 24 hr 08/14/22 06:32: WBC 4.2 L, RBC 3.70 L, Hgb 9.5 L, Hct 31.2 L, MCV 84.3, MCH 25.7 L, MCHC 30.4 L, RDW Std Deviation 46.5 H, RDW Coeff of Rufino 15.5 H, Plt Count 156, MPV 9.0, Immature Gran % (Auto) 0.500, Neut % (Auto) 58.3, Lymph % (Auto) 23.8, [place] % (Auto) 11.6 H, Eos % (Auto) 4.8, Baso % (Auto) 1.0, Absolute Neuts (auto) 2.5, Absolute Lymphs (auto) 1.00, Nucleated RBC % 0 08/14/22 06:32: Sodium 137, Potassium 4.1, Chloride 100, Carbon Dioxide 33.0 H, Anion Gap 4 L, BUN 20 H, Creatinine 0.55, Estim Creat Clear Calc 37.26, Est GFR (MDRD) Af Amer 137, Est GFR (MDRD) Non-Af 113, BUN/Creatinine Ratio 36.2 H, Glucose 98, Calcium 9.2, Magnesium 2.0 Microbiology: Microbiology 08/08/22 10:31 Tissue - Tibial Membrane Gram Stain - Final 08/08/22 10:31 Tissue - Tibial Membrane Wound Culture - Final No growth aerobically. 08/08/22 10:31 Tissue - Tibial Membrane Anaerobic Culture - Final No growth in 5 days. 08/08/22 10:24 Tissue - Suprapatellar Pouch Gram Stain - Final 08/08/22 10:24 Tissue - Suprapatellar Pouch Wound Culture - Final No growth aerobically. 08/08/22 10:24 Tissue - Suprapatellar Pouch Anaerobic Culture - Final No growth in 5 days. 08/08/22 10:29 Tissue - Femoral Membrane Gram Stain - Final 08/08/22 10:29 Tissue - Femoral Membrane Wound Culture - Final No growth aerobically. 08/08/22 10:29 Tissue - Femoral Membrane Anaerobic Culture - Final No growth in 5 days. 08/01/22 16:09 Swab (Method) Nasal Screen MRSA/MSSA - Final D/C Instructions Discharge Diet: No restrictions May shower in (days): 1 (Please turn dressing away from water. Okay to get wet as long as dressing is intact to skin.) Ice area for (Minutes): 20 (Every 1-2 hours while awake. Please place barrier between the skin and ice pack.) Weight Bearing Status: Weight bearing as tolerated (With walker) Keep extremity elevated above heart level: Operative Extremity Call your doctor if your incision/area has: Continuous Slow Oozing, Sudden Increased Bleeding, Increased Pain/ Swelling, Increased Redness and Foul Smelling Discharge Call your doctor if you observe: Fever of 101 or Higher, Coldness, Increased Pain, Numbness or Tingling, Change in Color, Shortness of breath, Chest pain, Calf discomfort and Uncontrolled pain Additional Dressing/Incision Instructions: Follow [facility] Post-op Instructions. Once postoperative dressing has been removed only use gentle soap and water over the incision. Do not use any ointments, Neosporin, salves, alcohol pads over the incision for 6 weeks postoperatively. Do not submerge underwater for 6 weeks postoperatively. Continue with RAISSA hose/elastic stockings for 2 weeks postoperatively. May remove at nighttime but needs to be placed back on the leg during the day. Do NOT use alcohol with narcotic pain medication. Do NOT make important decisions while taking narcotic medication. If you have problems with taking your medication (rash, itching, nausea, etc.) call the office at once. Meaningful Use Info Meaningful Use Diagnoses (Choose all that apply): None applicable Discharge Plan Admission Admit Date/Time: 08/08/22 07:18 Attending Provider: Malcom Loredo Primary Care Provider: Cheryl Russell Consulting Providers: Radha Patel ; Prashant Armstrong Discharge Orders/Prescriptions Prescriptions: New doxycycline monohydrate 100 mg Capsule 100 mg PO BID 12 Days Qty: 24 0RF Rx Instructions: Take for 2 weeks postoperatively while following cultures ferrous sulfate [FeroSul] 325 mg (65 mg iron) Tablet 325 mg PO 1200,1700 14 Days Qty: 28 0RF aspirin 81 mg Tablet,Chewable 81 mg PO BIDCM 30 Days Qty: 60 0RF Rx Instructions: Take 81 mg aspirin twice daily for 4 weeks postoperatively for DVT prophylaxis. folic acid 1 mg Tablet 1 mg PO BREAKFAST 14 Days Qty: 14 0RF oxycodone 5 mg Tablet 5 - 10 mg PO Q4H PRN PRN (Reason: Pain Score 4-10) 5 Days Qty: 60 0RF Continued sertraline 100 MG tablet 100 mg PO DAILY amlodipine 2.5 MG tablet 2.5 mg PO DAILY omeprazole 40 MG capsule,delayed release(DR/EC) 40 mg PO DAILY cyanocobalamin (vitamin B-12) 500 MCG tablet 1,000 mcg PO DAILY@0800 hydrochlorothiazide 25 MG tablet 25 mg PO DAILY multivitamin with minerals 1 EACH tablet 1 tab PO DAILY calcium carbonate-vitamin D3 1 EACH tablet 1 tab PO 0800 melatonin 5 MG tablet 10 mg PO QHS gabapentin 300 mg capsule 300 mg PO TIDCM Mag 64 64 mg tablet,delayed release (DR/EC) 64 mg PO DAILY pramipexole 0.5 mg tablet 1 mg PO QHS cholecalciferol (vitamin D3) 25 mcg (1,000 unit) Tablet 25 mcg PO DAILY meloxicam 7.5 mg Tablet 7.5 mg PO BID sennosides-docusate sodium [Stool Softener-Stimulant Laxat] 8.6-50 mg tablet 2 tab PO BID PRN (Reason: Constipation) Rx Instructions: Take until first bowel movement, then as needed oxycodone 5 mg Tablet 5 - 10 mg PO Q4H PRN PRN (Reason: Pain Score 4-10) 7 Days Qty: 42 0RF metoprolol succinate 100 mg tablet extended release 24 hr 100 mg PO DAILY acetaminophen 500 mg tablet 1,000 mg PO Q8 Other Ambulatory Orders: CBC-Complete Blood Cnt No Diff (Routine) Timeframe: 2 Weeks Facility: [facility] - Location: Laboratory Ordered By: Lewis NEGRETE Referrals / Follow Up: Cheryl Russell DO [Primary Care Provider] - Lewis Morales PA-C [Med Staff - Adv Practice Prof] - 08/23/22 2:45 pm Disposition Disposition (needs filled in before D/C Order can be placed): Home, Self Care
[2022-08-14] MEDS: Ferrous Sulfate 325 MG Tablet PO (12:47)
== END 2022-08-14 13:29 | disposition home or self-care (01) | DRG 468 ==
LOC: ACINP 07:38 → MS3 13:28
PROVIDERS: Anesthesiology; Internal Medicine; Physician Assistant Surgical; Admitting Provider Specialist; PCP Internal Medicine; Referring Provider Specialist; Visit Provider Specialist
PROC: 0SRD0J9 Replacement of Left Knee Joint with Synthetic Substitute, Cemented, Open Approach (ICD-10-PCS; principal; 2022-08-08 09:20)
DX: Z47.33 Aftercare following explantation of knee joint prosthesis (principal); F17.210 Nicotine dependence, cigarettes, uncomplicated; I10 Essential (primary) hypertension; G25.81 Restless legs syndrome; Z68.38 Body mass index [BMI] 38.0-38.9, adult; M17.11 Unilateral primary osteoarthritis, right knee; K21.9 Gastro-esophageal reflux disease without esophagitis; Z60.2 Problems related to living alone; Z79.1 Long term (current) use of non-steroidal anti-inflammatories (NSAID); Z96.652 Presence of left artificial knee joint; Z86.19 Personal history of other infectious and parasitic diseases; Y79.2 Prosthetic and other implants, materials and accessory orthopedic devices associated with adverse incidents
CPT/HCPCS: 36415; 73560; 80048; 83735; 85025; 85027; 87015; 87070; 87075; 87077; 87081; 87102; 87116; 87176; 87205; 87206; 94668; 97110; 97116; 97162; 97166; 97530; 97535; 99252; C1776; J7040; J7120; A4216; G0463; J2405; J3475

== ENCOUNTER → 2022-08-27 | Outpatient (CLI) | payer MEDICARE, SELFPAY ==
[2022-08-27 17:32] LABS: Hematocrit 40.1 % (37-47); Hemoglobin 12.1 g/dL (12.0-15.0); Mean Corp Hgb Conc 30.2 g/dL (32-36); Mean Corpuscular Hgb 26.2 pg (27.0-32.0); Mean Platelet Vol. 9.1 fl (6.2-12.0); Platelet Count 220 K/mm3 (150-450); RBC Distribution Width SD 59.8 fl (35.1-43.9); Red Blood Count 4.61 M/mm3 (4.2-5.4)
== END | disposition home or self-care (01) ==
LOC: MTLAB 15:03
PROVIDERS: PCP Internal Medicine; Visit Provider Physician Assistant Surgical
DX: D64.9 Anemia, unspecified (principal)
CPT/HCPCS: 36415; 85027

== ENCOUNTER → 2022-09-04 | Outpatient (CLI) | payer MEDICARE, SELFPAY ==
[2022-09-04 17:03] LABS: Mucous, Urine 0 SEEN /hpf (<or=2+); Red Blood Cells-Urine 0 SEEN /hpf (0-5)
[2022-09-04 17:39] LABS: Color, Urine Yellow (Yellow); Glucose, Dipstick Normal (Normal); Ketone-Dipstick Negative (Negative); Leukocyte Esterase-Dipstick 500 /ul (Negative); Nitrite-Dipstick Negative (Negative); Occult Blood-Urine 10 /ul (Negative); Protein-Dipstick 30 mg/dl (Negative); Urine Bilirubin Dipstick Negative (Negative); Urine Clarity Clear (Clear); Urine Urobilinogen Normal (Normal)
[2022-09-04 18:50] LABS: Bacteria 1+ /hpf (None Seen); Squamous Epithelial Cells - UA 0-5 SEEN /hpf (5-10); White Blood Cells 10-25 SEEN /hpf (0-5)
== END | disposition home or self-care (01) ==
LOC: LABSPEC 15:50
PROVIDERS: PCP Internal Medicine; Visit Provider Physician Assistant
DX: N39.0 Urinary tract infection, site not specified (principal)
CPT/HCPCS: 81001; 87086; 87088; 87186

== ENCOUNTER 2022-11-14 07:00 | Outpatient (RCR) | payer MEDICARE, SELFPAY ==
--- NOTE | 2022-08-16 15:51 | HP.PTEVAL ---
Patient's Visit Information TOREY SUAREZ is a 77 year old F referred to Physical Therapy by Dr. Malcom Loredo MD with a diagnosis of L TKA 08/08/22. Date of Evaluation: 08/16/22 Physical Therapist: Shan Long PT, ATC - Visit Plan Frequency: 2-3x /Week Duration: 4-6 Weeks Plan: L knee PROM/mobs, stretching and strengthening, balance and proprio, nustep, and HEP - Subjective DOS: 08/08/22. Pt reports she had an infection in her L TKA that she had performed one year ago. Pt reports the surgeon had to take out the prosthetic and insert spacers for her infection. Pt reports she was in the hospital for 41 days until finally having her new prostetic inserted. Pt reports she had PT in the hospital over this time span. Pt reports she is in a lot of pain at this time. Pt reports she isnt able to notice any improvements at this time. Pt denies tingling or numbness in L LE. Pt reports she is having sleep difficulty at this time without the use of pain meds. Pt has no stairs at home. Pt did try stairs at the hospital where she is able to negotiate them one step at a time. 8/10 at rest, 10/10 pain at worst (when my knee grabs me) - Pain L knee Pain Intensity (Out of 10): 8 Pain Intensity Range: 10 - Objective Neuro: B LE sensation is WNL to light touch. Girth at joint line: L knee= 54, R = 47 cm. ROM: L knee 0-10-98, R knee 0-110. MMT:R knee flex= 23, ext= 17; L knee flex= 18, ext= 10 #F. TU.41 - Balance/Special Test Scores Lower Extremity Functional Score: 20 - Goals Goal 1:: Decrease L knee pain x 50% to aid with sleep Goal Time Frame: 4-6 Weeks Goal 2:: Increase L knee ROM x 20 degrees to aid with stair negotiation Goal Time Frame: 4-6 Weeks Goal 3:: Increase L knee strength x 5-10 #F to aid with ambulation Goal Time Frame: 4-6 Weeks Goal 4:: I with HEP Goal Time Frame: 4-6 Weeks - Rehabilitation Potential Physical Therapy Diagnosis: Pt has L knee pain, weakness, and limited ROM secondary to L TKA Rehabilitation Potential: Good - Anticipated Interventions Patient/Client Instruction: Educate patient on: Condition, Plan of Care For the Purpose of:: To improve self management Therapeutic Exercise to Include: Strength training, Endurance training, Balance training, Flexibilty training, Gait and locomotor training, Passive ROM, Active ROM, Dynamic Lumbar Stabilization For the Purpose of:: To decrease pain, To increase ROM, To improve muscle performance and motor function Cryotherapy (ice pack, ice massage): Yes For the Purpose of:: To decrease pain Thank you for the opportunity to evaluate your patient. For Medicare and Medicare HMO plans, please review the plan of care and approve it. It will need to be FAXED BACK to us at [phone] for Medicare purposes. For Medicare only, by signing this I certify the plan of care. Please let me know if there are questions or concerns regarding this plan of care. Physician Signature: Date:
--- NOTE | 2022-09-14 10:59 | HP.PTREVAL ---
Dr. Malcom Loredo MD, It has been my pleasure to treat TOREY SUAREZ over the last 10 visits for L TKA 08/08/22. Please see the progress note below for an update on the physical therapy plan of care! Subjective: My pain is up and down Objective/Function: L knee pain ranges from 2-8/10. L knee ROM: 0-128 degrees. L knee MMT: flex= 22, ext= 18 #F. Pt has achieved ROM goals, but still lacks functional strength Plan Plan: L knee PROM/mobs, stretching and strengthening, balance and proprio, nustep, and HEP Balance/Gait/Functional tests - Balance/Special Test Scores Lower Extremity Functional Score: 27 Goals Goal 1:: Decrease L knee pain x 50% to aid with sleep Goal Time Frame: 4-6 Weeks Goal Progress: Progressing Goal 2:: Increase L knee ROM x 20 degrees to aid with stair negotiation Goal Time Frame: 4-6 Weeks Goal Progress: Goal Met Goal 3:: Increase L knee strength x 5-10 #F to aid with ambulation Goal Time Frame: 4-6 Weeks Goal Progress: Progressing Goal 4:: I with HEP Goal Time Frame: 4-6 Weeks Goal Progress: Progressing Anticipated Interventions Patient/Client Instruction: Educate patient on: Condition, Plan of Care For the Purpose of:: To improve self management Therapeutic Exercise to Include: Strength training, Endurance training, Balance training, Flexibilty training, Gait and locomotor training, Passive ROM, Active ROM, Dynamic Lumbar Stabilization For the Purpose of:: To decrease pain, To increase ROM, To improve muscle performance and motor function Cryotherapy (ice pack, ice massage): Yes For the Purpose of:: To decrease pain Please do not hesitate to contact me at [phone] by phone or if you have questions or concerns regarding this new plan of care! Sincerely, Shan Long, PT, ATC
--- NOTE | 2022-10-12 13:06 | HP.PTREVAL ---
Dr. Malcom Loredo MD, It has been my pleasure to treat TOREY SUAREZ over the last 19 visits for L TKA 08/08/22. Please see the progress note below for an update on the physical therapy plan of care! Subjective: Pt reports she is definitely improving, but still has pain and difficulty with transfers Objective/Function: L knee pain ranges from 0-8/10. L knee MMT: flex= 28, ext= 16 #F. L knee ROM: 0-127 degrees. Pt is progressing well with pain and ROM at this time. Pt lacks significant strength which prevents her from being able to perform IADL's Plan Plan: L knee PROM/mobs, stretching and strengthening, balance and proprio, nustep, and HEP Balance/Gait/Functional tests - Balance/Special Test Scores Lower Extremity Functional Score: 34 Goals Goal 1:: Decrease L knee pain x 50% to aid with sleep Goal Time Frame: 4-6 Weeks Goal Progress: Progressing Goal 2:: Increase L knee ROM x 20 degrees to aid with stair negotiation Goal Time Frame: 4-6 Weeks Goal Progress: Goal Met Goal 3:: Increase L knee strength x 5-10 #F to aid with ambulation Goal Time Frame: 4-6 Weeks Goal Progress: Progressing Goal 4:: I with HEP Goal Time Frame: 4-6 Weeks Goal Progress: Progressing Anticipated Interventions Patient/Client Instruction: Educate patient on: Condition, Plan of Care For the Purpose of:: To improve self management Therapeutic Exercise to Include: Strength training, Endurance training, Balance training, Flexibilty training, Gait and locomotor training, Passive ROM, Active ROM, Dynamic Lumbar Stabilization For the Purpose of:: To decrease pain, To increase ROM, To improve muscle performance and motor function Cryotherapy (ice pack, ice massage): Yes For the Purpose of:: To decrease pain Please do not hesitate to contact me at [phone] by phone or if you have questions or concerns regarding this new plan of care! Sincerely, Shan Long, PT, ATC
--- NOTE | 2022-11-14 07:38 | HP.PTDCSUM ---
It has been my pleasure to treat TOREY SUAREZ referred by Dr. Malcom Loredo MD, with the diagnosis of L TKA 08/08/22 for a total of 26 visit(s). Discharge Date: Please see the following information for a summary of their discharge status. Subjective: I am ready to be discharged L knee Pain Intensity (Out of 10): 0 % Improvement: 70 Objective/Function: Pain: 0/10 currently. ROM: 0-120 degrees. MMT: flex= 29, ext= 31 #F. Girth: 48 cm. TU.7. Pt is now I with HEP Goal 1:: Decrease L knee pain x 50% to aid with sleep Goal Progress: Goal Met Goal 2:: Increase L knee ROM x 20 degrees to aid with stair negotiation Goal Progress: Goal Met Goal 3:: Increase L knee strength x 5-10 #F to aid with ambulation Goal Progress: Goal Met Goal 4:: I with HEP Goal Progress: Goal Met Plan: Discharge to I gym routine If there are questions or concerns regarding this patient's physical therapy, please feel free to call me at [phone]. Thank you for the referral of this patient. Sincerely, Shan Long, PT, ATC Balance/Gait/Functional tests - Balance/Special Test Scores Lower Extremity Functional Score: 34 WOMAC Total Score: 42 WOMAC Percentage: 56.2500
== END 2022-11-14 08:33 | disposition home or self-care (01) ==
LOC: PT 07:00
PROVIDERS: PCP Internal Medicine; Referring Provider Specialist; Visit Provider Specialist
DX: Z47.1 Aftercare following joint replacement surgery (principal); Z96.652 Presence of left artificial knee joint; T84.54XD Infection and inflammatory reaction due to internal left knee prosthesis, subsequent encounter
CPT/HCPCS: 97110; 97140; 97161; 97164

== ENCOUNTER 2023-05-06 11:30 | Outpatient (RCR) | payer MEDICARE, SELFPAY ==
--- NOTE | 2023-04-02 14:49 | HP.PTEVAL_ITS ---
Patient's Visit Information Visit Information Visit Information: TOREY SUAREZ is a 77 year old F referred to Physical Therapy by Dr. Malcom Loredo MD with a diagnosis of L patellar fracture, L TKA. Date of Evaluation: 04/02/23 Physical Therapist: Alessandro Garcia, DPT, OCS, CSCS Visit Plan Frequency: 3x /Week Duration: 4-6 Weeks Plan: 3x/week for 3 weeks in pool for strength and gait and balance then to land 3x/week for 3 weeks for same and progression of gait volume. In pool work on gait, balance, weight shift and strengthening of hips, no bands. Subjective Subjective: Fell on L patella. Got a puppy and started to pee on floor and grabbed for her and fell as she was reaching. That was a month ago. Broke R patella she says in November of 2020. Sees [facility] for R knee cap. 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 Last May had spacer in and on antibitoics for 6 weeks. Not a lot of pain. Is here now because she is not walking properly. She wants to walk without a walker. Has used AD much of time since August 08, 2022. No exercises at home. Sleep is good but puppy wears her out for exercises. Not employed, wants to drive van for hospital. Needs to get rid of walker and be able to load them. Spends day reading and putters around at home. Basic ADLS I, meals, bathroom, shower all i. No steps at home. Objective Objective: Walks with wh walker back to PT mod i, very tired after 150 feet. transfers I chair with UE, and bed with UE. Steps are reciprocal with two rails pulling, very weak. Ambulates 200 feet without AD with one LOB corrected by PT catching R toe. B hip aROM WFL to 0 extension, B knees 0-118 AROM with I SLR. ankle aROM WFL B. reflexes 2/3 patella and achilles B Sensation LE WNL to gross light touch. Strength hips 3 abd and ext adn 3+ flexion. Knees 3+ ext and 4- flexion B. Ankles 4- B. pt is very tired after total 600 feet ambulation today with some mild SOB and wanting to sit often.Tendsd to rely on walker but can obviously walk without it. Poor weight shift and hesitant to move. No complaints of pain throughout session today. Balance/Special Test Scores Functional Gait Assessment Score: 20 % Disability: 33.3400 Lower Extremity Functional Score: 27 Goals Goal 1:: FGA Goal Time Frame: 4-6 Weeks Goal 2:: Ambulate 200 feet I without LOB without AD and no obvious fatigue. Goal Time Frame: 4-6 Weeks Goal 3:: I apporopriate HEP to limit future problems with sedentarism. Goal Time Frame: 4-6 Weeks Goal 4:: LEFS 50 Goal Time Frame: 4-6 Weeks Rehabilitation Potential Physical Therapy Diagnosis: weakness and poor weight shift B LE limiting funciton and ambulation. Rehabilitation Potential: Good Anticipated Interventions Patient/Client Instruction: Educate patient on: Condition and Plan of Care For the Purpose of:: To increase ROM, To improve nutrient delivery to tissue, To improve muscle performance and motor function, To increase tolerance to activity/condition/position and To improve ability of physical actions for home/community/work/leisure Therapeutic Exercise to Include: Strength training, Flexibilty training, Gait and locomotor training, In an aquatic setting , Passive ROM and Active ROM For the Purpose of:: To decrease pain, To increase ROM, To improve nutrient delivery to tissue, To improve muscle performance and motor function, To increase tolerance to activity/condition/position, To improve ability of physical actions for home/community/work/leisure and To improve gait and locomotor functions Text: Thank you for the opportunity to evaluate your patient. For Medicare and Medicare HMO plans, please review the plan of care and approve it. It will need to be FAXED BACK to us at [phone] for Medicare purposes. For Medicare only, by signing this I certify the plan of care. Please let me know if there are questions or concerns regarding this plan of care. Physician Signature: Date:
--- NOTE | 2023-06-20 13:10 | HP.PT.NRP ---
Patient Information Patient Information: TOREY SUAREZ was seen in my office for initial evaluation on 04/02/23. The following Plan of Care was established for this patient: POC Established Initial Frequency: 3x /Week Initial Duration: 4-6 Weeks Anticipated Interventions Patient/Client Instruction: Educate patient on: Condition and Plan of Care For the Purpose of:: To increase ROM, To improve nutrient delivery to tissue, To improve muscle performance and motor function, To increase tolerance to activity/condition/position and To improve ability of physical actions for home/community/work/leisure Therapeutic Exercise to Include: Strength training, Flexibilty training, Gait and locomotor training, In an aquatic setting , Passive ROM and Active ROM For the Purpose of:: To decrease pain, To increase ROM, To improve nutrient delivery to tissue, To improve muscle performance and motor function, To increase tolerance to activity/condition/position, To improve ability of physical actions for home/community/work/leisure and To improve gait and locomotor functions Last Seen Last Seen: This patient was last seen in our office 05/06/23. Pertinent comments regarding their Physical therapy will appear below: Pt seen 10 visits of POC on pool. She cancelled the remaining visits as she did not wish to get in the water in the cold winter adn did not wish to have land based therapy. At this point, I will discontinue her at her request. At this point I will be discontinuing this patient from physical therapy. I would be happy to see this patient again in the future if found appropriate by the physician. Thank you! Alessandro Garcia, DPT, OCS, CSCS Balance/Gait/Functional tests Balance/Special Test Scores Functional Gait Assessment Score: 20 % Disability: 33.3400 Lower Extremity Functional Score: 27
== END 2023-05-06 19:00 | disposition home or self-care (01) ==
LOC: PT 11:30
PROVIDERS: PCP Internal Medicine; Visit Provider Specialist
DX: S82.032D Displaced transverse fracture of left patella, subsequent encounter for closed fracture with routine healing (principal); Z96.652 Presence of left artificial knee joint
CPT/HCPCS: 97113; 97162

== ENCOUNTER → 2024-07-07 | Outpatient (CLI) | payer BC, SELFPAY ==
--- NOTE | 2024-07-07 12:39 | RAD_ITS ---
PROCEDURE: KNEE 4 OR MORE VIEWS REASON FOR EXAM: Recent fall. Left knee pain. TECHNIQUE: 4 view(s) of the left knee COMPARISON: 08/08/2022 FINDINGS: Metallic hardware is noted of the distal femur, proximal tibia and undersurface of the patella, consi stent with total knee arthroplasty. No significant periprosthetic lucency or periprosthetic fracture. Mild marginal osteo phytosis. Fragmented well corticated enthesophyte arising from the inferior patella. No acute fractures or dislocations are id entified. No bony destructive lesions are seen. Suspect small to moderate size suprapatellar joint effusion. Overlyin g soft tissues appear intact. Trace vascular calcifications. RAD/Knee 4 or More Views IMPRESSION: 1. Evidence of prior total knee arthroplasty. Negative for hardware failure 2. No acute fractures or dislocations are identified. 3. Suspect small to moderate size suprapatellar joint effusion. Reading [facility]
[2024-07-07 13:02] LABS: Absolute Lymphocyte Count 1.58 X10^3/uL (0.83-4.51); Basophil# 0.05 X10^3/uL; Basophil% 0.7 % (0-1); Eosinophil# 0.11 X10^3/uL; Eosinophils% 1.5 % (0-5); Hematocrit 44.3 % (37-47); Hemoglobin 14.7 g/dL (12.0-15.0); Lymphocyte # 1.58 X10^3/ul (0.83-4.51); Lymphocyte % 21.4 % (19-41); Mean Corp Hgb Conc 33.2 g/dL (32-36); Mean Corpuscular Hgb 29.7 pg (27.0-32.0); Mean Corpuscular Volume 89.5 fL (81-99); Mean Platelet Vol. 9.2 fl (6.2-12.0); Monocyte# 0.68 X10^3/uL; Monocyte% 9.2 % (0-10); NRBC Flagged by Analyzer 0 % (0-5); Neutrophil # 4.95 X10^3/uL (2.7-7.7); Neutrophil % 66.8 % (47-70); Platelet Count 154 K/mm3 (150-450); RBC Distribution Width CV 13.1 % (11.6-14.6); Red Blood Count 4.95 M/mm3 (4.2-5.4); White Blood Count 7.4 K/mm3 (4.4-11.0)
[2024-07-07 13:13] LABS: Vitamin D,25 Hydroxy 69.5 ng/mL
[2024-07-07 13:15] LABS: Hemoglobin A1c 5.4 % (3.8-5.6)
[2024-07-07 13:19] LABS: ALB/GLOB Ratio 0.8 RATIO (0.9-2.4); AST(SGOT) 20 U/L (15-37); Alanine Aminotransfer ALT/SGPT 26 U/L (13-56); Albumin, Serum 3.6 g/dL (3.2-5.0); Alkaline Phosphatase 93 U/L (45-117); Anion Gap 5 (5-15); BUN 13 mg/dL (7-18); BUN/Creat Ratio 19.9 RATIO (10-20); Calcium,Total 9.7 mg/dL (8.5-10.1); Chloride 100 mmol/L (98-107); Cholesterol 178 mg/dL (200); Creatinine, Serum 0.65 mg/dL (0.55-1.02); EST Glomerular Filtration Rate 93 mL/min (>60); Est Glom Filt Rate - Afr Amer 112 mL/min (>60); Globulin 4.4 g/dL (2.2-4.2); Glucose 88 mg/dL (74-106); High Density Lipoprotein 64 mg/dL; Iron 56 ug/dL (50-170); Iron Binding Capacity,Total 360 ug/dL (250-450); PERCENT IRON SATURATION 15.6 % (15.0-55.0); Sodium Level 134 mmol/L (136-145); Triglycerides 109 mg/dL; Very Low Density Lipoprotein 22 mg/dL (5-40)
== END | disposition home or self-care (01) ==
PROVIDERS: PCP Internal Medicine; Referring Provider Nurse Practitioner Family; Visit Provider Nurse Practitioner Family
DX: I10 Essential (primary) hypertension (principal); E55.9 Vitamin D deficiency, unspecified; G25.81 Restless legs syndrome; E66.9 Obesity, unspecified; M25.562 Pain in left knee
CPT/HCPCS: 36415; 73564; 80053; 80061; 82306; 83036; 83540; 83550; 84443; 85025